=== PATIENT | female | born 1970 | race Hispanic/Latino ===

== ENCOUNTER 2021-11-03 16:40 | Emergency (ER) | payer SELFPAY ==
--- OUTSIDE RECORDS SUMMARY | 2021-11-03 17:26 | XMS REPORT | Continuity of Care Document ---
:1970 Author Organization [facility] t Address [address] [place] [address] Care Team Providers Name Role Phone ENDER Barrios [facility] Primary Care Physic sofiya Unavailable MINO Attending Clinician Unavailable Екатерина CAPELLAN Attending Clinician Unavailable Doctor Unassigned, Name Attending Clinician Unavailable Chaya HAMILTON Attending Clinician CHAYA Attending Clinician Unavailable G_Pappaphilip Attending Clinician Unavailable G_Pappas Admitting Clinician Unavailable Payers Payer Name Policy Type Policy Number Effective Date Expiration Date S violette [employer] [id number] 2014 [employer]ATION [employer] 00:00:00 Problems Condition Condition Condition Status Onset Resolution Last Treating Co mments Source Name Details Category Date Date Treatment Clinician Date No known No known Disease Unive rs active active ity of problems problems [facility] Allergies, Adverse Reactions, Alerts Allergy Allergy Status Severity Reaction(s) Onset Inactive Treating Comm ents Source Name Type Date Date Clinician NO KNOWN Drug Active Univers ALLERGIE Class ity of S [facility] Social History Social Habit Start Date Stop Date Quantity Comments Source Exposure to Not sure [facility] SARS-CoV-2 (event) Medica l Branch Sex Assigned At [birth year] [facility] 00:00:00 00:00:00 [facility] Smoking Status Start Date Stop Date Source Unknown if ever smoked [facility] Medications Ordered Filled Start Stop Current Ordering Indication Dosage Frequency Signature Comments Components Source Medication Medication Date Date Medication? Clinician (SIG) Name Name benzonatate Yes [id number] 100mg Take 1 Univers 100 mg 9-02 capsule by ity of capsule 00:00: mouth 3 [place] 00 (three) Medical times Branch daily as needed for Cough. bromphenira 0 Yes [id number] 5mL Take 5 mL Univers mine-pseudo 9-02 by mouth 4 it y of ephedrine-D [place]:00: (four[place] (BROMFED 00 times Medical DM) 2-30-10 daily as Bran ch mg/5 mL needed for syrup Congestion /Allergies or Cough. albuterol Yes [id number] 2{puff} Inhale 2 Univers 90 9-02 Puffs ity of mcg/actuati 00:00: every 4 [place] as on inhaler 00 (four) Medical hours as Branch needed for Wheezing or Shortness of Breath. ondansetron Yes [id number] 4mg Take 1 Univers (ZOFRAN 9-02 tablet by ity of ODT) 4 mg 00:00: mouth [place] disintegrat 00 every 8 Medic al ing tablet (eight) Branch hours as needed for Nausea and Vomiting (N/V). benzonatate Yes [id number] 100mg Take 1 Univers 100 mg 9-02 capsule by ity of capsule 00:00: mouth 3 [place] 00 (three) Medical times Branch daily as needed for Cough. bromphenira Yes [id number] 5mL Take 5 mL Univers mine-pseudo 9-02 by mouth 4 it y of ephedrine-D 00:00: (four[place] (BROMF[place] 00 times Medical DM) 2-30-10 daily as Bran ch mg/5 mL needed for syrup Congestion /Allergies or Cough. albuterol Yes [id number] 2{puff} Inhale 2 Univers 90 9-02 Puffs ity of mcg/actuati 00:00: every 4 [place] as on inhaler 00 (four) Medical hours as Branch needed for Wheezing or Shortness of Breath. ondansetron Yes [id number] 4mg Take 1 Univers (ZOFRAN 9-02 tablet by ity of ODT) 4 mg 00:00: mouth [place] disintegrat 00 every 8 Medic al ing tablet (eight) Branch hours as needed for Nausea and Vomiting (N/V). Vital Signs Vital Name Observation Time Observation Value Comments Source Systolic blood 2021-04-09 20:36:00 142 mm[Hg] Univer sity of pressure [facility] Diastolic blood 2021-04-09 20:36:00 93 mm[Hg] Unive rsity of pressure [facility] Heart rate 2021-04-09 20:36:00 97 /min [facility] Body temperature 2021-04-09 20:36:00 37.06 [place] [facility] Body height 2021-04-09 20:36:00 152.4 cm [facility] Body weight 2021-04-09 20:36:00 73.483 kg [facility] BMI 2021-04-09 20:36:00 31.64 kg/m2 [facility] Oxygen saturation in 2021-04-09 20:36:00 100 /min [facility] blood by [facility] Pulse oximetry Branch Procedures Procedure Date / Time Performed Performing Clinician Sourc e [id number] CONSENT 2021-04-10 05:01:00 Doctor Unassigned, No Aureliae [facility] ASSIGNMENT OF BENEFITS 2021-04-09 21:34:24 Doctor Hariigned, No [facility] XR CHEST 1 VW 2021-04-09 21:03:23 Junior Montano [facility] COVID-19 (ID NOW RAPID 2021-04-09 20:39:00 Junior Montano [facility] TESTING) [facility] NOTICE OF PRIVACY 2021-04-09 20:27:43 Doctor Unassigned, No [facility] Encounters Start End Encounter Admission Attending Care Care Encounter Source Date/Time Date/Time Type Type Clinicians Facility Department ID 2021-12-17 2021-12-17 Outpatient Laurie HERZOG [facility] [id number] Univers 13:45:00 13:45:00 , DARA [id number] [facility] 2021-04-10 2021-04-10 Outpatient Laurie CAPELLAN [facility] [id number] Univers 10:00:00 10:00:00 PAGE [facility] 2021-04-10 2021-04-10 Orders Doctor RIVERA [id number] Univers 00:00:00 00:00:00 Only Unassigned, VICKY [id number] ity of [place] [facility] [id number] [place] [id number] [facility] 009 Branch 2021-04-09 2021-04-09 Emergency [facility] [id number] Univers 15:40:00 17:13:00 Junior Puentes [id number] i ty of [place] [id number] [facility] [id number] [facility] 084 Branch 2021-04-09 2021-04-09 Emergency X [facility] ERT [id number] Univers 15:27:00 15:27:00 JUNIOR [facility] 2020-06-27 2020-06-27 Outpatient G_Pappas [facility] [id number] [place] 12:50:00 12:50:00 [facility] Results Test Description Test Time Test Comments Results Result Comments Source COVID-19 (ID NOW RAPID TESTING) 2021-04-09 20:54:15 Test Item Value Reference Range Interpretation Comme nts SARS-CoV-2 Rapid ID NOW (test code Positive Not Detected A = [id number]) JULI (test code = JULI) ID NOW COVID-19 Assay is an isothermal nucleic acid amplification test intended for the qualitative detection of nucleic acid from SARS-CoV-2 viral RNA in nasopharyngeal ([employer]) specimens. It is used under Emergency Use Authorization (EUA) by FDA. The limit of detection (LOD) of the assay is 125 Genome Equivalents/mL. A positive result is indicative of the presence of SARS-CoV-2 RNA. ?Clinical correlation with patient history and other diagnostic information is necessary to determine patient infection status. A negative (Not Detected) result does not preclude SARS-CoV-2 infection. In patients with clinical symptoms and other tests that are consistent with SARS-CoV-2 infection, negative results should be treated as presumptive negative and a new specimen should be tested with alternative PCR molecular test. Invalid: Please collect a new specimen for repeat patient testing if clinically indicated. Lab Interpretation (test code = Abnormal [id number]) [facility]
[2021-11-03] MEDS ORDERED: METOCLOPRAMIDE 10 MG/2mL INJ ONE (17:50)
[2021-11-03] MEDS ORDERED: NA CHLORIDE 0.9% 1,000 ML ONE (17:51)
[2021-11-03] MEDS ORDERED: DIPHENHYDRAMINE 50 MG/ML VIAL ONE (17:51)
[2021-11-03] MEDS ORDERED: KETOROLAC 30 MG/ML INJ ONE (17:51)
--- NOTE | 2021-11-03 18:03 | RAD REPORT ---
EXAM DESCRIPTION: CT - CTHCSPWOC - 11/03/2021 5:48 pm CLINICAL HISTORY: Trauma, head and neck injury. Headache COMPARISON: No comparisons TECHNIQUE: Axial 5 mm thick images of the head were obtained. Axial 2 mm thick images of the cervical spine were obtained with sagittal and coronal reconstruction images generated and reviewed. All CT scans are performed using dose optimization technique as appropriate and may include automated exposure control or mA/KV adjustment according to patient size. FINDINGS: CT HEAD WITHOUT CONTRAST: No acute hemorrhage, hydrocephalus or extra-axial collection is identified.Mild brain atrophy.No area s of brain edema or midline shift. The paranasal sinuses and mastoids are clear.The calvarium is intact. CT CERVICAL SPINE WITHOUT CONTRAST: No fracture or subluxation.Mild spondylosis is present C5-6 with posterior osteophytes.No prevertebra l soft tissues swelling is identified. IMPRESSION: No acute intracranial or cervical spine findings.
--- NOTE | 2021-11-03 18:35 | ER ---
Nurse's Notes [facility] Name: Jennifer Victor Age: 50 yrs Sex: Female : 1970 Arrival Date: 11/03/2021 Time: 16:47 Bed 27 Private MD: Diagnosis: Headache Presentation: 11/03 16:50 Chief complaint: Patient states: 3 DAYS PAIN ON R SIDE OF HEAD RADIATING TO R SHOULDER. bp Coronavirus screen: At this time, the client does not indicate any symptoms associated with coronavirus-19. Ebola Screen: No symptoms or risks identified at this time. Initial Sepsis Screen: Does the patient meet any 2 criteria? No. Patient's initial sepsis screen is negative. Does the patient have a suspected source of infection? No. Patient's initial sepsis screen is negative. Risk Assessment: Do you want to hurt yourself or someone else? Patient reports no desire to harm self or others. Onset of symptoms is unknown. 16:50 Method Of Arrival: Ambulatory bp 16:50 Acuity: YAMINI 3 bp Triage Assessment: 16:50 General: Appears in no apparent distress. uncomfortable, obese, Behavior is bp cooperative, appropriate for age, anxious. Pain: Complains of pain in right eye, right jain, right supraclavicular area, right clavicle and anterior aspect of right shoulder. EENT: No deficits noted. Neuro: Level of Consciousness is awake, alert, obeys commands. Cardiovascular: No deficits noted. Respiratory: No deficits noted. GI: Reports nausea. : No signs and/or symptoms were reported regarding the genitourinary system. Derm: No deficits noted. Musculoskeletal: No deficits noted. Historical: - Allergies: 17:27 No Known Drug Allergies; bp - PMHx: 17:27 scoliosis; bp - Immunization history:: Client reports receiving the 2nd dose of the Covid vaccine. - Social history:: Smoking status: Patient denies any tobacco usage or history of. Screenin:50 Abuse screen: Denies threats or abuse. Denies injuries from another. Nutritional bp screening: No deficits noted. Tuberculosis screening: No symptoms or risk factors identified. Fall Risk None identified. Assessment: 16:50 General: SEE TRIAGE NOTE. GI: Reports nausea. bp Vital Signs: 16:50 BP 111 / 74; Pulse 90; Resp 16; Temp 97.8; Pulse Ox 99% ; Weight 74.39 kg; Height 5 ft. bp (152.40 cm); 16:50 Body Mass Index 32.03 (74.39 kg, 152.40 cm) bp ED Course: 16:47 Patient arrived in ED. ds1 16:50 Arm band placed on. bp 16:50 Patient has correct armband on for positive identification. Adult w/ patient. bp 17:27 Triage completed. bp 17:29 Kali Arenas NP is PHCP. pm1 17:29 Martell Rios DO is Attending Physician. pm1 17:39 Patient has correct armband on for positive identification. Bed in low position. Call mh5 light in reach. Side rails up X 1. Pulse ox on. NIBP on. 17:40 Warm blanket given. mh5 17:42 Allegra Dawkins RN is Primary Nurse. ld1 17:50 CT Head C Spine In Process Unspecified. EDMS 17:58 Inserted saline lock: 20 gauge in right antecubital area, using aseptic technique. ld1 18:34 Vish Fitzpatrick MD is Referral Physician. ms3 18:58 No provider procedures requiring assistance completed. IV discontinued, intact, ld1 bleeding controlled, No redness/swelling at site. Administered Medications: 17:57 Drug: Benadryl (diphenhydrAMINE) 25 mg Route: IVP; Site: right antecubital; ld1 17:57 Drug: NS 0.9% 1000 ml Route: IV; Rate: 1000 ml; Site: right antecubital; ld1 17:58 Drug: Reglan (metoCLOPramide) 10 mg Route: IVP; Site: right antecubital; ld1 17:58 Drug: Ketorolac 30 mg Route: IVP; Site: right antecubital; ld1 Outcome: 18:34 Discharge ordered by . ms3 18:58 Discharged to home ambulatory. ld1 18:58 Condition: stable 18:58 Discharge instructions given to patient, Instructed on discharge instructions, follow up and referral plans. Demonstrated understanding of instructions, follow-up care. 18:58 Patient left the ED. ld1 Signatures: Dispatcher [employer] EDIL Siria Monroy ds1 Kali Arenas NP ROADS SUPERINTENDENT pm1 Ade Bruner [facility] Nadeem Nevarez RN RN bp Martell Rios DO DO ms3 Allegra Dawkins, RN RN ld1
--- NOTE | 2021-11-03 18:35 | EDPHYS ---
Physician Documentation [facility] Name: Jennifer Victor Age: 50 yrs Sex: Female : 1970 Arrival Date: 11/03/2021 Time: 16:47 Bed 27 Private MD: ED Physician Martell Rios HPI: 11/03 17:31 This 50 yrs old Female presents to ER via Ambulatory with complaints of pm1 Headache. 17:31 The patient complains of pain to the right eye and right side of head. The patient pm1 describes the headache as aching, constant. Onset: The symptoms/episode began/occurred 3 day(s) ago. Associated signs and symptoms: Pertinent positives: dizziness, nausea, Pertinent negatives: fever, neck stiffness, paresthesias, vision changes, vision loss, vomiting. Severity of symptoms: in the emergency department the pain is unchanged. Headache History: The patient has had previous headaches and this one is similar to previous episodes. The symptoms are alleviated by nothing. the symptoms are aggravated by nothing. The patient has experienced similar episodes in the past, a few times, today's symptoms are similar, to previous migraine headaches. The patient has been recently seen by a physician: the patient's primary care provider, earlier today, with similar presenting complaints, and was sent to the [facility] Emergency Department for further evaluation. Historical: - Allergies: 17:27 No Known Drug Allergies; bp - PMHx: 17:27 scoliosis; bp - Immunization history:: Client reports receiving the 2nd dose of the Covid vaccine. - Social history:: Smoking status: Patient denies any tobacco usage or history of. ROS: 17:31 Constitutional: Negative for fever, chills, and weight loss, Cardiovascular: Negative pm1 for chest pain, palpitations, and edema, Respiratory: Negative for shortness of breath, cough, wheezing, and pleuritic chest pain. 17:31 Back: Negative for injury and pain, MS/Extremity: Negative for injury and deformity, Skin: Negative for injury, rash, and discoloration. 17:31 Neck: Positive for of the right trapezius, Pain. 17:31 Abdomen/GI: Positive for nausea, Negative for abdominal pain, vomiting, diarrhea. 17:31 Neuro: Positive for dizziness, headache, Negative for numbness, tingling, weakness. 17:31 All other systems are negative. Exam: 17:31 Constitutional: This is a well developed, well nourished patient who is awake, alert, pm1 and in no acute distress. 17:31 Skin: Warm, dry with normal turgor. Normal color with no rashes, no lesions, and no evidence of cellulitis. MS/ Extremity: Pulses equal, no cyanosis. Neurovascular intact. Full, normal range of motion. 17:31 Head/face: Noted is no obvious of injury or deformity except tenderness, that is moderate, of the right side of forehead to right occipital area. 17:31 Eyes: Periorbital structures: appear normal, Pupils: no acute changes, Extraocular movements: intact throughout, Sclera: no acute changes, icterus, is not appreciated. 17:31 ENT: Mouth: no acute changes, Lips: normal, moist, Oral mucosa: normal, pink and intact, moist. 17:31 Neck: External neck: tenderness, of the right trapezius. 17:31 Cardiovascular: Exam negative for acute changes, Rate: normal, Rhythm: regular, Pulses: no pulse deficits are appreciated. 17:31 Respiratory: Exam negative for acute changes, respiratory distress, shortness of breath. 17:31 Back: scoliosis that is marked, vertebral tenderness, is not appreciated, muscle spasm, is appreciated in the right trapezius. 17:31 Neuro: Exam negative for acute changes, Orientation: is normal, Mentation: is normal, Motor: is normal, moves all fours. Vital Signs: 16:50 BP 111 / 74; Pulse 90; Resp 16; Temp 97.8; Pulse Ox 99% ; Weight 74.39 kg; Height 5 ft. bp (152.40 cm); 16:50 Body Mass Index 32.03 (74.39 kg, 152.40 cm) bp MDM: 17:47 Patient medically screened. ms3 18:31 Differential diagnosis: Tension headache vs ICH vs Migraine. Data reviewed: vital ms3 signs, nurses notes, radiologic studies, CT scan. ED course: Patient's pain improved, finger-nose intact, ambulatory in the emergency department. Patient follow-up with Dr. Fitzpatrick as discussed. Questions were answered. Return precautions discussed include worsening symptoms, or any other concerns.. 11/03 17:30 Order name: CT Head C Spine; Complete Time: 18:07 pm1 Administered Medications: 17:57 Drug: Benadryl (diphenhydrAMINE) 25 mg Route: IVP; Site: right antecubital; ld1 17:57 Drug: NS 0.9% 1000 ml Route: IV; Rate: 1000 ml; Site: right antecubital; ld1 17:58 Drug: Reglan (metoCLOPramide) 10 mg Route: IVP; Site: right antecubital; ld1 17:58 Drug: Ketorolac 30 mg Route: IVP; Site: right antecubital; ld1 Disposition: 21:55 Co-signature as Attending Physician, Martell Rios DO Patient seen and discharged by me. ms3 Disposition Summary: 11/03/21 18:34 Discharge Ordered Location: Home ms3 Condition: Stable ms3 Diagnosis - Headache ms3 Followup: ms3 - With: Vish Fitzpatrick MD - When: 2 - 3 days - Reason: Discharge Instructions: - Discharge Summary Sheet ms3 - General Headache Without Cause ms3 Forms: - Medication Reconciliation Form ms3 - Thank You Letter ms3 - Antibiotic Education ms3 - Prescription Opioid Use ms3 Signatures: Dispatcher [employer] EDMS Kali Arenas, HARMAN PAINTER PLATE pm1 Nadeem Nevarez, RN RN Martell Edwards DO DO ms3 Allegra Dawkins RN RN ld1
[2021-11-03 19:24] VITALS: BP 111/74; TEMP 97.8; O2SAT 99
== END 2021-11-03 18:58 | disposition home or self-care (01) ==
LOC: ER 16:40
DX: R51.9 Headache, unspecified (principal)
CPT/HCPCS: 70450; 72125; 96374; 96375; 99284; J1200; J2765; J7030

== ENCOUNTER 2023-01-01 14:34 | Emergency (ER) | payer OTHER, SELFPAY ==
--- OUTSIDE RECORDS SUMMARY | 2023-01-01 14:43 | XMS REPORT | Continuity of Care Document ---
:1970 Author Organization [facility] t Address [address] [place] [address] Care Team Providers Name Role Phone Star Kellogg Primary Care Physician [phone] WEN CAPELLAN Attending Clinician Unavailable Felipe Herzog MD Attending Clinician Doctor Unassigned, [place] Attending Clinician Unavailable FELIPE HERZOG Attending Clinician Unavailable KRISTY SALMERON Attending Clinician Unavailable Georgina Molina PT Attending Clinician Unavailable Kristy Salmeron MD Attending Clinician Lab, c Attending Clinician Unavailable Calvin Bueno MD Attending Clinician COLLEEN SABA Attending Clinician Unavailable Celena Ng DO Attending Clinician NATE CRUZ Attending Clinician Unavailable CECELIA MOODY Attending Clinician Unavailable CECELIA MOODY Attending Clinician Unavailable RADIOLOGY Attending Clinician Unavailable Test, Vtc Pulmonary Function Attending Clinician Unavailable Unknown, Attending Attending Clinician Unavailable UNKNOWN, ATTENDING Attending Clinician Unavailable Only, Adc Test Attending Clinician Unavailable Lena Quinones MD Attending Clinician LENA QUINONES Attending Clinician Unavailable Bettie Pang Attending Clinician Unavailable Testing, [facility] Pulmonary Function Attending Clinician Unavaila ble Fellow, Pulmonary Attending Clinician Unavailable Martina MEJIA, Juan M Madrid Attending Clinician [phone] JUAN M MACK Attending Clinician Unavailable PAGE CAPELLAN Attending Clinician Unavailable Junior Thayer Attending Clinician JUNIOR MONTANO Attending Clinician Unavailable [facility] Attending Clinician Unavailable FELIPE HERZOG Admitting Clinician Unavailable [facility] Admitting Clinician Unavailable Payers Payer Name Policy Type Policy Number Effective Date Expiration Date Fátima CARNEY DISABILITY [id number] 2014 DETERMINATION [facility] 00:00:00 Problems Condition Condition Condition Status Onset Resolution Last Treating Co mments Source Name Details Category Date Date Treatment Clinician Date Degenerati Degenerati Disease Active U nivers ve ve 10-14 [place] patient patient Branch No known No known Disease Unive rs active active ity of problems problems [facility] Allergies, Adverse Reactions, Alerts Allergy Allergy Status Severity Reaction(s) Onset Inactive Treating Comm ents Source Name Type Date Date Clinician NO KNOWN Drug Active Univers ALLERGIE Class ity of S [facility] Social History Social Habit Start Date Stop Date Quantity Comments Source History of Cigarette Smoker Universi ty of tobacco use [facility] Exposure to 2022-10-15 2022-10-25 Not sure [facility] SARS-CoV-2 00:00:00 11:09:00 [facility] (event) Arabi Tobacco use and 2022-02-23 2022-02-23 Smokeless tobacco Un iversity of exposure 00:00:00 00:00:00 non-user [facility] Sex Ass[birth year] At [birth year] Universit y of 00:00:00 00:00:00 [facility] Smoking Status Start Date Stop Date Source Ex-smoker 2022-02-23 00:00:00 2022-02-23 00:00:00 [facility] Medications Ordered Filled Start Stop Current Ordering Indication Dosage Frequency Signature Comments Components Source Medication Medication Date Date Medication? Clinician (SIG) Name Name ergocalcife Yes [id number] Take 1 Univers rol, 3-16 capsule by ity of vitamin d2, 00:00: mouth [place] 1,250 mcg 00 weekly. Medical (50,000 Branch unit) capsule ergocalcife 2023-0 Yes [id number] Take 1 Univers rol, 3-16 capsule by ity of vitamin d2, 00:00: mouth [place] 1,250 mcg 00 weekly. Medical (50,000 Branch unit) capsule ergocalcife 2023-0 Yes [id number] Take 1 Univers rol, 3-16 capsule by ity of vitamin d2, 00:00: mouth [place] 1,250 mcg 00 weekly. Medical (50,000 Branch unit) capsule ergocalcife 2023-0 Yes [id number] Take 1 Univers rol, 3-16 capsule by ity of vitamin d2, 00:00: mouth [place] 1,250 mcg 00 weekly. Medical (50,000 Branch unit) capsule ergocalcife 2023-0 Yes [id number] Take 1 Univers rol, 3-16 capsule by ity of vitamin d2, 00:00: mouth [place] 1,250 mcg 00 weekly. Medical (50,000 Branch unit) capsule ergocalcife 2023-0 Yes [id number] Take 1 Univers rol, 3-16 capsule by ity of vitamin d2, 00:00: mouth [place] 1,250 mcg 00 weekly. Medical (50,000 Branch unit) capsule ergocalcife 2023-0 Yes [id number] Take 1 Univers rol, 3-16 capsule by ity of vitamin d2, 00:00: mouth [place] 1,250 mcg 00 weekly. Medical (50,000 Branch unit) capsule ergocalcife 2023-0 Yes [id number] Take 1 Univers rol, 3-16 capsule by ity of vitamin d2, 00:00: mouth [place] 1,250 mcg 00 weekly. Medical (50,000 Branch unit) capsule ergocalcife 2023-0 Yes [id number] Take 1 Univers rol, 3-16 capsule by ity of vitamin d2, 00:00: mouth [place] 1,250 mcg 00 weekly. Medical (50,000 Branch unit) capsule ergocalcife 2023-0 Yes [id number] Take 1 Univers rol, 3-16 capsule by ity of vitamin d2, 00:00: mouth [place] 1,250 mcg 00 weekly. Medical (50,000 Branch unit) capsule ergocalcife 2023-0 Yes [id number] Take 1 Univers rol, 3-16 capsule by ity of vitamin d2, 00:00: mouth [place] 1,250 mcg 00 weekly. Medical (50,000 Branch unit) capsule ergocalcife 2023-0 Yes [id number] Take 1 Univers rol, 3-16 capsule by ity of vitamin d2, 00:00: mouth [place] 1,250 mcg 00 weekly. Medical (50,000 Branch unit) capsule ergocalcife 2023-0 Yes [id number] Take 1 Univers rol, 3-16 capsule by ity of vitamin d2, 00:00: mouth [place] 1,250 mcg 00 weekly. Medical (50,000 Branch unit) capsule ergocalcife 2023-0 Yes [id number] Take 1 Univers rol, 3-16 capsule by ity of vitamin d2, 00:00: mouth [place] 1,250 mcg 00 weekly. Medical (50,000 Branch unit) capsule ergocalcife 2023-0 Yes [id number] Take 1 Univers rol, 3-16 capsule by ity of vitamin d2, 00:00: mouth [place] 1,250 mcg 00 weekly. Medical (50,000 Branch unit) capsule ergocalcife 2023-0 Yes [id number] Take 1 Univers rol, 3-16 capsule by ity of vitamin d2, 00:00: mouth [place] 1,250 mcg 00 weekly. Medical (50,000 Branch unit) capsule lisinopriL 2021-1 Yes 20mg Take 20 mg U nivers 20 mg 1-21 by mouth. ity of tablet 06:17: [address] lisinopriL 2021-08 Yes 20mg Take 20 mg U nivers 20 mg 1-21 by mouth. ity of tablet 06:17: [address] lisinopriL 2021-08 Yes 20mg Take 20 mg U nivers 20 mg 1-21 by mouth. ity of tablet 06:17: [address] lisinopriL 2021-08 Yes 20mg Take 20 mg U nivers 20 mg 1-21 by mouth. ity of tablet 06:17: [address] lisinopriL 2021-08 Yes 20mg Take 20 mg U nivers 20 mg 1-21 by mouth. ity of tablet 06:17: [address] lisinopriL 2021-08 Yes 20mg Take 20 mg U nivers 20 mg 1-21 by mouth. ity of tablet 06:17: [address] lisinopriL 2021-08 Yes 20mg Take 20 mg U nivers 20 mg 1-21 by mouth. ity of tablet 06:17: [address] lisinopriL 2021-08 Yes 20mg Take 20 mg U nivers 20 mg 1-21 by mouth. ity of tablet 06:17: [address] lisinopriL 2021-08 Yes 20mg Take 20 mg U nivers 20 mg 1-21 by mouth. ity of tablet 06:17: [address] lisinopriL 2021-08 Yes 20mg Take 20 mg U nivers 20 mg 1-21 by mouth. ity of tablet 06:17: [address] lisinopriL 2021-08 Yes 20mg Take 20 mg U nivers 20 mg 1-21 by mouth. ity of tablet 06:17: [address] lisinopriL 2021-08 Yes 20mg Take 20 mg U nivers 20 mg 1-21 by mouth. ity of tablet 06:17: [address] lisinopriL 2021-08 Yes 20mg Take 20 mg U nivers 20 mg 1-21 by mouth. ity of tablet 06:17: [address] lisinopriL 2021-08 Yes 20mg Take 20 mg U nivers 20 mg 1-21 by mouth. ity of tablet 06:17: [address] lisinopriL 2021-08 Yes 20mg Take 20 mg U nivers 20 mg 1-21 by mouth. ity of tablet 06:17: [address] lisinopriL 2021-08 Yes 20mg Take 20 mg U nivers 20 mg 1-21 by mouth. ity of tablet 06:17: [address] lisinopriL 2021-08 Yes 20mg Take 20 mg U nivers 20 mg 1-21 by mouth. ity of tablet 06:17: [address] lisinopriL 2021-08 Yes 20mg Take 20 mg U nivers 20 mg 1-21 by mouth. ity of tablet 06:17: [address] lisinopriL 2021-08 Yes 20mg Take 20 mg U nivers 20 mg 1-21 by mouth. ity of tablet 06:17: [address] lisinopriL 2021-08 Yes 20mg Take 20 mg U nivers 20 mg 1-21 by mouth. ity of tablet 06:17: [address] lisinopriL 2021-08 Yes 20mg Take 20 mg U nivers 20 mg 1-21 by mouth. ity of tablet 06:17: [address] lisinopriL 2021-08 Yes 20mg Take 20 mg U nivers 20 mg 1-21 by mouth. ity of tablet 06:17: [address] lisinopriL 2021-08 Yes 20mg Take 20 mg U nivers 20 mg 1-21 by mouth. ity of tablet 06:17: [address] lisinopriL 2021-08 Yes 20mg Take 20 mg U nivers 20 mg 1-21 by mouth. ity of tablet 06:17: [address] lisinopriL 2021-08 Yes 20mg Take 20 mg U nivers 20 mg 1-21 by mouth. ity of tablet 06:17: [address] lisinopriL 2021-08 Yes 20mg Take 20 mg U nivers 20 mg 1-21 by mouth. ity of tablet 06:17: [address] lisinopriL 2021-08 Yes 20mg Take 20 mg U nivers 20 mg 1-21 by mouth. ity of tablet 06:17: [address] lisinopriL 2021-08 Yes 20mg Take 20 mg U nivers 20 mg 1-21 by mouth. ity of tablet 06:17: [address] lisinopriL 2021-08 Yes 20mg Take 20 mg U nivers 20 mg 1-21 by mouth. ity of tablet 06:17: [address] lisinopriL 2021-08 Yes 20mg Take 20 mg U nivers 20 mg 1-21 by mouth. ity of tablet 06:17: [address] lisinopriL 2021-08 Yes 20mg Take 20 mg U nivers 20 mg 1-21 by mouth. ity of tablet 06:17: [address] lisinopriL 2021-08 Yes 20mg Take 20 mg U nivers 20 mg 1-21 by mouth. ity of tablet 06:17: [address] lisinopriL 2021-08 Yes 20mg Take 20 mg U nivers 20 mg 1-21 by mouth. ity of tablet 06:17: [address] lisinopriL 2021-08 Yes 20mg Take 20 mg U nivers 20 mg 1-21 by mouth. ity of tablet 06:17: [address] lisinopriL 2021-08 Yes 20mg Take 20 mg U nivers 20 mg 1-21 by mouth. ity of tablet 06:17: [address] lisinopriL 2021-08 Yes 20mg Take 20 mg U nivers 20 mg 1-21 by mouth. ity of tablet 06:17: [address] lisinopriL 2021-08 Yes 20mg Take 20 mg U nivers 20 mg 1-21 by mouth. ity of tablet 06:17: [address] lisinopriL 2021-08 Yes 20mg Take 20 mg U nivers 20 mg 1-21 by mouth. ity of tablet 06:17: [address] meloxicam 2021-2021- No [id number] 7.5mg Take 1 Univers 7.5 mg 8-04 10-04 tablet by ity of tablet 00:00: 04:59 mouth in [place] 00 :00 [facility] for 60 days. meloxicam 2021-0 2021- No [id number] 7.5mg Take 1 Univers 7.5 mg 8-04 10-04 tablet by ity of tablet 00:00: 04:59 mouth in [place] 00 :00 [facility] for 60 days. meloxicam 2021-0 2- No [id number] 7.5mg Take 1 Univers 7.5 mg 8-04 10-04 tablet by ity of tablet 00:00: 04:59 mouth in [place] 00 :00 [facility] for 60 days. meloxicam 2021-0 2- No [id number] 7.5mg Take 1 Univers 7.5 mg 8-04 10-04 tablet by ity of tablet 00:00: 04:59 mouth in [place] 00 :00 [facility] for 60 days. meloxicam 2-0 2- No [id number] 7.5mg Take 1 Univers 7.5 mg 8-04 10-04 tablet by ity of tablet 00:00: 04:59 mouth in [place] 00 :00 [facility] for 60 days. meloxicam 2-0 2- No [id number] 7.5mg Take 1 Univers 7.5 mg 8-04 10-04 tablet by ity of tablet 00:00: 04:59 mouth in [place] 00 :00 the [facility] for 60 days. meloxicam 2021- No [id number] 7.5mg Take 1 Univers 7.5 mg 8-04 10-04 tablet by ity of tablet 00:00: 04:59 mouth in [place] 00 :00 the [facility] morning Branch for 60 days. meloxicam 2021- No [id number] 7.5mg Take 1 Univers 7.5 mg 8-04 10-04 tablet by ity of tablet 00:00: 04:59 mouth in [place] 00 :00 the [facility] for 60 days. meloxicam 2021- No [id number] 7.5mg Take 1 Univers 7.5 mg 8-04 10-04 tablet by ity of tablet 00:00: 04:59 mouth in [place] 00 :00 the [facility] for 60 days. cyclobenzap No [id number] 10mg Take 1 Univers rine 10 mg 8- 09-04 tablet by ity of tablet 00:00: 04:59 mouth in [place] 00 :00 the [facility] Branch and 1 tablet at noon and 1 tablet in the evening. Do all this for 30 days. acetaminoph No [id number] 1000mg Take 2 Univers en (TYLENOL 8- 09-04 tablets by i ty of EXTRA 00:00: 04:59 mouth [place] STRENGTH) 00 :00 every 8 Medical 500 mg (eight) Branch tablet hours as needed for Pain for up to 30 days. cyclobenzap No [id number] 10mg Take 1 Univers rine 10 mg 8- 09-04 tablet by ity of tablet 00:00: 04:59 mouth in [place] 00 :00 the [facility] morning Branch and 1 tablet at noon and 1 tablet in the evening. Do all this for 30 days. acetaminoph No [id number] 1000mg Take 2 Univers en (TYLENOL 8-04 09-04 tablets by i ty of EXTRA 00:00: 04:59 mouth [place] STRENGTH) 00 :00 every 8 Medical 500 mg (eight) Branch tablet hours as needed for Pain for up to 30 days. cyclobenzap 2022-0 202- No [id number] 10mg Take 1 Univers rine 10 mg 03-11- tablet by ity of tablet 00:00: 04:59 mouth in [place] 00 :00 the Medical morning Branch and 1 tablet at noon and 1 tablet in the evening. Do all this for 30 days. acetaminoph 2022-0 2022- No [id number] 1000mg Take 2 Univers en (TYLENOL 03-11- tablets by i ty of EXTRA 00:00: 04:59 mouth [place] STRENGTH) 00 :00 every 8 Medical 500 mg (eight) Branch tablet hours as needed for Pain for up to 30 days. cyclobenzap 2021-0 2022- No [id number] 10mg Take 1 Univers rine 10 mg 03-11 tablet by ity of tablet 00:00: 04:59 mouth in [place] 00 :00 the Medical morning Branch and 1 tablet at noon and 1 tablet in the evening. Do all this for 30 days. acetaminoph 2021-0 2021- No [id number] 1000mg Take 2 Univers en (TYLENOL 03-11- tablets by i ty of EXTRA 00:00: 04:59 mouth [place] STRENGTH) 00 :00 every 8 Medical 500 mg (eight) Branch tablet hours as needed for Pain for up to 30 days. lisinopriL 2022-0 Yes 20mg Take 20 mg U nivers 20 mg 7-19 by mouth. ity of tablet 08:19: [address] lisinopriL 2022-0 Yes 20mg Take 20 mg U nivers 20 mg 7-19 by mouth. ity of tablet 08:19: [address] lisinopriL 2022-0 Yes 20mg Take 20 mg U nivers 20 mg 7-19 by mouth. ity of tablet 08:19: [address] lisinopriL 2022-0 Yes 20mg Take 20 mg U nivers 20 mg 7-19 by mouth. ity of tablet 08:19: [address] lisinopriL 2022-0 Yes 20mg Take 20 mg U nivers 20 mg 7-19 by mouth. ity of tablet 08:19: [address] lisinopriL 2022-0 Yes 20mg Take 20 mg U nivers 20 mg 7-19 by mouth. ity of tablet 08:19: [address] lisinopriL 2022-0 Yes 20mg Take 20 mg U nivers 20 mg 7-19 by mouth. ity of tablet 08:19: [address] lisinopriL 2022-0 Yes 20mg Take 20 mg U nivers 20 mg 7-19 by mouth. ity of tablet 08:19: [address] lisinopriL 2022-0 Yes 20mg Take 20 mg U nivers 20 mg 7-19 by mouth. ity of tablet 08:19: [address] lisinopriL 2022-0 Yes 20mg Take 20 mg U nivers 20 mg 7-19 by mouth. ity of tablet 08:19: [address] lisinopriL 2022-0 Yes 20mg Take 20 mg U nivers 20 mg 7-19 by mouth. ity of tablet 08:19: [address] lisinopriL 2022-0 Yes 20mg Take 20 mg U nivers 20 mg 7-19 by mouth. ity of tablet 08:19: [address] lisinopriL 2022-0 Yes 20mg Take 20 mg U nivers 20 mg 7-19 by mouth. ity of tablet 08:19: [address] lisinopriL 2-0 Yes 20mg Take 20 mg U nivers 20 mg 7-19 by mouth. ity of tablet 08:19: [address] lisinopriL 2022-0 Yes 20mg Take 20 mg U nivers 20 mg 7-19 by mouth. ity of tablet 08:19: [address] lisinopriL 2022-0 Yes 20mg Take 20 mg U nivers 20 mg 7-19 by mouth. ity of tablet 08:19: [address] lisinopriL 2022-0 Yes 20mg Take 20 mg U nivers 20 mg 7-19 by mouth. ity of tablet 08:19: [address] lisinopriL 2022-0 Yes 20mg Take 20 mg U nivers 20 mg 7-19 by mouth. ity of tablet 08:19: [address] lisinopriL 2022-0 Yes 20mg Take 20 mg U nivers 20 mg 7-19 by mouth. ity of tablet 08:19: [address] Dose 2021-0 No Unknown 5-09 00:00: 00 Dose 2022-0 No Unknown 5-09 00:00: 00 Dose 2022-0 No Unknown 4-01 00:00: 00 Dose 2022-0 No Unknown 4-01 00:00: 00 Dose 2022-0 No Unknown 3-08 00:00: 00 Dose 2022-0 No Unknown 3-08 00:00: 00 Dose 2022-0 No Unknown 3-08 00:00: 00 Dose 2022-0 No Unknown 3-08 00:00: 00 Dose 2022-0 No Unknown 3-08 00:00: 00 Dose 2022-0 No Unknown 3-08 00:00: 00 Dose 2022-0 No Unknown 3-08 00:00: 00 Dose 2022-0 No Unknown 3-08 00:00: 00 Dose 2022-0 No Unknown 3-08 00:00: 00 Dose 2022-0 No Unknown 3-08 00:00: 00 Dose 2022-0 No Unknown 3-08 00:00: 00 Dose 2022-0 No Unknown 3-08 00:00: 00 Dose 2022-0 No Unknown 3-08 00:00: 00 Dose 2022-0 No Unknown 3-08 00:00: 00 Dose 2022-0 No Unknown 3-08 00:00: 00 Dose 2022-0 No Unknown 3-08 00:00: 00 Dose 2022-0 No Unknown 3-08 00:00: 00 Dose 2022-0 No Unknown 3-08 00:00: 00 Dose 2022-0 No Unknown 3-08 00:00: 00 Dose 2022-0 No Unknown 3-08 00:00: 00 Dose 2022-0 No Unknown 3-08 00:00: 00 Dose 2022-0 No Unknown 3-08 00:00: 00 Dose 2022-0 No Unknown 3-08 00:00: 00 Dose 2022-0 No Unknown 3-08 00:00: 00 Dose 2022-0 No Unknown 3-08 00:00: 00 Dose 2022-0 No Unknown 3-08 00:00: 00 Dose 2022-0 No Unknown 3-08 00:00: 00 Dose 2022-0 No Unknown 3-08 00:00: 00 Dose 2022-0 No Unknown 3-08 00:00: 00 Dose 2022-0 No Unknown 3-08 00:00: 00 Dose 2022-0 No Unknown 3-08 00:00: 00 Dose 2022-0 No Unknown 3-08 00:00: 00 Dose 2022-0 No Unknown 3-08 00:00: 00 Dose 2022-0 No Unknown 3-08 00:00: 00 Dose 2022-0 No Unknown 3-08 00:00: 00 Dose 2022-0 No Unknown 3-08 00:00: 00 Dose 2022-0 No Unknown 3-08 00:00: 00 Dose 2022-0 No Unknown 3-08 00:00: 00 Dose 2022-0 No Unknown 3-08 00:00: 00 Dose 2022-0 No Unknown 3-08 00:00: 00 Dose 2022-0 No Unknown 3-08 00:00: 00 Dose 2022-0 No Unknown 3-08 00:00: 00 Dose 2022-0 No Unknown 3-08 00:00: 00 Dose 2022-0 No Unknown 3-08 00:00: 00 Dose 2022-0 No Unknown 3-08 00:00: 00 Dose 2022-0 No Unknown 3-08 00:00: 00 Dose 2022-0 No Unknown 3-08 00:00: 00 Dose 2022-0 No Unknown 3-08 00:00: 00 Dose 2022-0 No Unknown 3-08 00:00: 00 Dose 2022-0 No Unknown 3-08 00:00: 00 Dose 2022-0 No Unknown 3-08 00:00: 00 Dose 2022-0 No Unknown 3-08 00:00: 00 Dose 2022-0 No Unknown 3-08 00:00: 00 Dose 2022-0 No Unknown 3-08 00:00: 00 Dose 2022-0 No Unknown 3-08 00:00: 00 Dose 2022-0 No Unknown 3-08 00:00: 00 Dose 2022-0 No Unknown 3-08 00:00: 00 Dose 2022-0 No Unknown 3-08 00:00: 00 Dose 2022-0 No Unknown 3-08 00:00: 00 Dose 2022-0 No Unknown 3-08 00:00: 00 Dose 2022-0 No Unknown 3-08 00:00: 00 Dose 2022-0 No Unknown 3-08 00:00: 00 Dose 2022-0 No Unknown 3-08 00:00: 00 Dose 2022-0 No Unknown 3-08 00:00: 00 Dose 2022-0 No Unknown 3-08 00:00: 00 Dose 2022-0 No Unknown 3-08 00:00: 00 Dose 2022-0 No Unknown 3-08 00:00: 00 Dose 2022-0 No Unknown 3-08 00:00: 00 Dose 2022-0 No Unknown 3-08 00:00: 00 Dose 2022-0 No Unknown 3-08 00:00: 00 Dose 2022-0 No Unknown 3-08 00:00: 00 Dose 2022-0 No Unknown 3-08 00:00: 00 Dose 2022-0 No Unknown 3-08 00:00: 00 Dose 2022-0 No Unknown 3-08 00:00: 00 Dose 2022-0 No Unknown 3-08 00:00: 00 Dose 2022-0 No Unknown 3-08 00:00: 00 Dose 2022-0 No Unknown 3-08 00:00: 00 Dose 2022-0 No Unknown 3-08 00:00: 00 Dose 2022-0 No Unknown 3-08 00:00: 00 Dose 2022-0 No Unknown 3-08 00:00: 00 Dose 2022-0 No Unknown 3-08 00:00: 00 Dose 2022-0 No Unknown 3-08 00:00: 00 Dose 2022-0 No Unknown 3-08 00:00: 00 Dose 2022-0 No Unknown 3-08 00:00: 00 Dose 2022-0 No Unknown 3-08 00:00: 00 Dose 2022-0 No Unknown 3-08 00:00: 00 Dose 2022-0 No Unknown 3-08 00:00: 00 Dose 2022-0 No Unknown 3-08 00:00: 00 Dose 2022-0 No Unknown 3-08 00:00: 00 Dose 2022-0 No Unknown 3-08 00:00: 00 Dose 2022-0 No Unknown 3-08 00:00: 00 Dose 2022-0 No Unknown 3-08 00:00: 00 Dose 2022-0 No Unknown 3-08 00:00: 00 Dose 2022-0 No Unknown 3-08 00:00: 00 Dose 2022-0 No Unknown 3-08 00:00: 00 Dose 2022-0 No Unknown 3-08 00:00: 00 Dose 2022-0 No Unknown 3-08 00:00: 00 Dose 2022-0 No Unknown 3-08 00:00: 00 Dose 2022-0 No Unknown 3-08 00:00: 00 Dose 2022-0 No Unknown 3-08 00:00: 00 Dose 2022-0 No Unknown 3-08 00:00: 00 Dose 2022-0 No Unknown 3-08 00:00: 00 Dose 2022-0 No Unknown 3-08 00:00: 00 Dose 2022-0 No Unknown 3-08 00:00: 00 Dose 2022-0 No Unknown 3-08 00:00: 00 Dose 2022-0 No Unknown 3-08 00:00: 00 Dose 2022-0 No Unknown 3-08 00:00: 00 Dose 2022-0 No Unknown 3-08 00:00: 00 Dose 2022-0 No Unknown 3-08 00:00: 00 Dose 2022-0 No Unknown 3-08 00:00: 00 Dose 2022-0 No Unknown 3-08 00:00: 00 Dose 2022-0 No Unknown 3-08 00:00: 00 Dose 2022-0 No Unknown 3-08 00:00: 00 Dose 2022-0 No Unknown 3-08 00:00: 00 Dose 2022-0 No Unknown 3-08 00:00: 00 Dose 2022-0 No Unknown 3-08 00:00: 00 Dose 2022-0 No Unknown 3-08 00:00: 00 Dose 2022-0 No Unknown 3-08 00:00: 00 Dose 2022-0 No Unknown 3-08 00:00: 00 Dose 2022-0 No Unknown 3-08 00:00: 00 Dose 2022-0 No Unknown 3-08 00:00: 00 Dose 2022-0 No Unknown 3-08 00:00: 00 Dose 2022-0 No Unknown 3-08 00:00: 00 Dose 2022-0 No Unknown 3-08 00:00: 00 Dose 2022-0 No Unknown 3-08 00:00: 00 Dose 2022-0 No Unknown 3-08 00:00: 00 Dose 2022-0 No Unknown 3-08 00:00: 00 Dose 2022-0 No Unknown 3-08 00:00: 00 Dose 2022-0 No Unknown 3-08 00:00: 00 Dose 2022-0 No Unknown 3-08 00:00: 00 Dose 2022-0 No Unknown 3-08 00:00: 00 Dose 2022-0 No Unknown 3-08 00:00: 00 Dose 2022-0 No Unknown 3-08 00:00: 00 Dose 2022-0 No Unknown 3-08 00:00: 00 Dose 2022-0 No Unknown 3-08 00:00: 00 Dose 2022-0 No Unknown 3-08 00:00: 00 Dose 2022-0 No Unknown 3-08 00:00: 00 Dose 2022-0 No Unknown 3-08 00:00: 00 Dose 2022-0 No Unknown 3-08 00:00: 00 Dose 2022-0 No Unknown 3-08 00:00: 00 Dose 2022-0 No Unknown 3-08 00:00: 00 Dose 2022-0 No Unknown 3-08 00:00: 00 Dose 2022-0 No Unknown 3-08 00:00: 00 Dose 2022-0 No Unknown 3-08 00:00: 00 Dose 2022-0 No Unknown 3-08 00:00: 00 Dose 2022-0 No Unknown 3-08 00:00: 00 Dose 2022-0 No Unknown 3-08 00:00: 00 Dose 2022-0 No Unknown 3-08 00:00: 00 Dose 2022-0 No Unknown 3-08 00:00: 00 Dose 2022-0 No Unknown 3-08 00:00: 00 Dose 2022-0 No Unknown 3-08 00:00: 00 Dose 2022-0 No Unknown 3-08 00:00: 00 Dose 2022-0 No Unknown 3-08 00:00: 00 Dose 2022-0 No Unknown 3-08 00:00: 00 Dose 2022-0 No Unknown 3-08 00:00: 00 Dose 2022-0 No Unknown 3-08 00:00: 00 Dose 2022-0 No Unknown 3-08 00:00: 00 Dose 2022-0 No Unknown 3-08 00:00: 00 Dose 2022-0 No Unknown 3-08 00:00: 00 Dose 2022-0 No Unknown 3-08 00:00: 00 Dose 2022-0 No Unknown 3-08 00:00: 00 Dose 2022-0 No Unknown 3-08 00:00: 00 Dose 2022-0 No Unknown 3-08 00:00: 00 Dose 2022-0 No Unknown 3-08 00:00: 00 Dose 2022-0 No Unknown 3-08 00:00: 00 Dose 2022-0 No Unknown 3-08 00:00: 00 Dose 2022-0 No Unknown 3-08 00:00: 00 Dose 2022-0 No Unknown 3-08 00:00: 00 Dose 2022-0 No Unknown 3-08 00:00: 00 Dose 2022-0 No Unknown 3-08 00:00: 00 Dose 2022-0 No Unknown 3-08 00:00: 00 Dose 2022-0 No Unknown 3-08 00:00: 00 Dose 2022-0 No Unknown 3-08 00:00: 00 Dose 2022-0 No Unknown 3-08 00:00: 00 Dose 2022-0 No Unknown 3-08 00:00: 00 Dose 2022-0 No Unknown 3-08 00:00: 00 Dose 2022-0 No Unknown 3-08 00:00: 00 Dose 2022-0 No Unknown 3-08 00:00: 00 Dose 2022-0 No Unknown 3-08 00:00: 00 Dose 2022-0 No Unknown 3-08 00:00: 00 Dose 2022-0 No Unknown 3-08 00:00: 00 Dose 2022-0 No Unknown 3-08 00:00: 00 Dose 2022-0 No Unknown 3-08 00:00: 00 Dose 2022-0 No Unknown 3-08 00:00: 00 Dose 2022-0 No Unknown 3-08 00:00: 00 Dose 2022-0 No Unknown 3-08 00:00: 00 Dose 2022-0 No Unknown 3-08 00:00: 00 Dose 2022-0 No Unknown 3-08 00:00: 00 Dose 2022-0 No Unknown 3-08 00:00: 00 Dose 2022-0 No Unknown 3-08 00:00: 00 Dose 2022-0 No Unknown 3-08 00:00: 00 Dose 2022-0 No Unknown 3-08 00:00: 00 Dose 2022-0 No Unknown 3-08 00:00: 00 Dose 2022-0 No Unknown 3-08 00:00: 00 Dose 2022-0 No Unknown 3-08 00:00: 00 Dose 2022-0 No Unknown 3-08 00:00: 00 Dose 2022-0 No Unknown 3-08 00:00: 00 Dose 2022-0 No Unknown 3-08 00:00: 00 Dose 2022-0 No Unknown 3-08 00:00: 00 Dose 2022-0 No Unknown 3-08 00:00: 00 Dose 2022-0 No Unknown 3-08 00:00: 00 Dose 2022-0 No Unknown 3-08 00:00: 00 Dose 2022-0 No Unknown 3-08 00:00: 00 Dose 2022-0 No Unknown 3-08 00:00: 00 Dose 2022-0 No Unknown 3-08 00:00: 00 Dose 2022-0 No Unknown 3-08 00:00: 00 Dose 2022-0 No Unknown 3-08 00:00: 00 Dose 2022-0 No Unknown 3-08 00:00: 00 Dose 2022-0 No Unknown 3-08 00:00: 00 Dose 2022-0 No Unknown 3-08 00:00: 00 Dose 2022-0 No Unknown 3-08 00:00: 00 Dose 2022-0 No Unknown 3-08 00:00: 00 Dose 2022-0 No Unknown 3-08 00:00: 00 Dose 2022-0 No Unknown 3-08 00:00: 00 Dose 2022-0 No Unknown 3-08 00:00: 00 Dose 2022-0 No Unknown 3-08 00:00: 00 Dose 2022-0 No Unknown 3-08 00:00: 00 Dose 2022-0 No Unknown 3-08 00:00: 00 Dose 2022-0 No Unknown 3-08 00:00: 00 Dose 2022-0 No Unknown 3-08 00:00: 00 Dose 2022-0 No Unknown 3-08 00:00: 00 Dose 2022-0 No Unknown 3-08 00:00: 00 Dose 2022-0 No Unknown 3-08 00:00: 00 Dose 2022-0 No Unknown 3-08 00:00: 00 Dose 2022-0 No Unknown 3-08 00:00: 00 Dose 2022-0 No Unknown 3-08 00:00: 00 Dose 2022-0 No Unknown 3-08 00:00: 00 Dose 2022-0 No Unknown 3-08 00:00: 00 Dose 2022-0 No Unknown 3-08 00:00: 00 Dose 2022-0 No Unknown 3-08 00:00: 00 Dose 2022-0 No Unknown 3-08 00:00: 00 Dose 2022-0 No Unknown 3-08 00:00: 00 Dose 2022-0 No Unknown 3-08 00:00: 00 Dose 2022-0 No Unknown 3-08 00:00: 00 Dose 2022-0 No Unknown 3-08 00:00: 00 Dose 2022-0 No Unknown 3-08 00:00: 00 Dose 2022-0 No Unknown 3-08 00:00: 00 Dose 2022-0 No Unknown 3-08 00:00: 00 Dose 2022-0 No Unknown 3-08 00:00: 00 Dose 2022-0 No Unknown 3-08 00:00: 00 Dose 2022-0 No Unknown 3-08 00:00: 00 Dose 2022-0 No Unknown 3-08 00:00: 00 Dose 2022-0 No Unknown 3-08 00:00: 00 Dose 2022-0 No Unknown 3-08 00:00: 00 Dose 2022-0 No Unknown 3-08 00:00: 00 Dose 2022-0 No Unknown 3-08 00:00: 00 Dose 2022-0 No Unknown 3-08 00:00: 00 Dose 2022-0 No Unknown 3-08 00:00: 00 Dose 2022-0 No Unknown 3-08 00:00: 00 Dose 2022-0 No Unknown 3-08 00:00: 00 Dose 2022-0 No Unknown 3-08 00:00: 00 Dose 2022-0 No Unknown 3-08 00:00: 00 Dose 2022-0 No Unknown 3-08 00:00: 00 Dose 2022-0 No Unknown 3-08 00:00: 00 Dose 2022-0 No Unknown 3-08 00:00: 00 Dose 2022-0 No Unknown 3-08 00:00: 00 Dose 2022-0 No Unknown 3-08 00:00: 00 Dose 2022-0 No Unknown 3-08 00:00: 00 Dose 2022-0 No Unknown 3-08 00:00: 00 Dose 2022-0 No Unknown 3-08 00:00: 00 Dose 2022-0 No Unknown 3-08 00:00: 00 Dose 2022-0 No Unknown 3-08 00:00: 00 Dose 2022-0 No Unknown 3-08 00:00: 00 Dose 2022-0 No Unknown 3-08 00:00: 00 Dose 2022-0 No Unknown 3-08 00:00: 00 Dose 2022-0 No Unknown 3-08 00:00: 00 Dose 2022-0 No Unknown 3-08 00:00: 00 Dose 2022-0 No Unknown 3-08 00:00: 00 Dose 2022-0 No Unknown 3-08 00:00: 00 Dose 2022-0 No Unknown 3-08 00:00: 00 Dose 2022-0 No Unknown 3-08 00:00: 00 Dose 2022-0 No Unknown 3-08 00:00: 00 Dose 2022-0 No Unknown 3-08 00:00: 00 Dose 2022-0 No Unknown 3-08 00:00: 00 Dose 2022-0 No Unknown 3-08 00:00: 00 Dose 2022-0 No Unknown 3-08 00:00: 00 Dose 2022-0 No Unknown 3-08 00:00: 00 Dose 2022-0 No Unknown 3-08 00:00: 00 Dose 2022-0 No Unknown 3-08 00:00: 00 Dose 2022-0 No Unknown 3-08 00:00: 00 Dose 2022-0 No Unknown 3-08 00:00: 00 Dose 2022-0 No Unknown 3-08 00:00: 00 Dose 2022-0 No Unknown 3-08 00:00: 00 Dose 2022-0 No Unknown 3-08 00:00: 00 Dose 2022-0 No Unknown 3-08 00:00: 00 Dose 2022-0 No Unknown 3-08 00:00: 00 Dose 2022-0 No Unknown 3-08 00:00: 00 Dose 2022-0 No Unknown 3-08 00:00: 00 Dose 2022-0 No Unknown 3-08 00:00: 00 Dose 2022-0 No Unknown 3-08 00:00: 00 Dose 2022-0 No Unknown 3-08 00:00: 00 Dose 2022-0 No Unknown 3-08 00:00: 00 Dose 2022-0 No Unknown 3-08 00:00: 00 Dose 2022-0 No Unknown 3-08 00:00: 00 Dose 2022-0 No Unknown 3-08 00:00: 00 Dose 2022-0 No Unknown 3-08 00:00: 00 Dose 2022-0 No Unknown 3-08 00:00: 00 Dose 2022-0 No Unknown 3-08 00:00: 00 Dose 2022-0 No Unknown 3-08 00:00: 00 Dose 2022-0 No Unknown 3-08 00:00: 00 Dose 2022-0 No Unknown 3-08 00:00: 00 Dose 2022-0 No Unknown 3-08 00:00: 00 Dose 2022-0 No Unknown 3-08 00:00: 00 Dose 2022-0 No Unknown 3-08 00:00: 00 Dose 2022-0 No Unknown 3-08 00:00: 00 Dose 2022-0 No Unknown 3-08 00:00: 00 Dose 2022-0 No Unknown 3-08 00:00: 00 Dose 2022-0 No Unknown 3-08 00:00: 00 Dose 2022-0 No Unknown 3-08 00:00: 00 Dose 2022-0 No Unknown 3-08 00:00: 00 Dose 2022-0 No Unknown 3-08 00:00: 00 Dose 2022-0 No Unknown 3-08 00:00: 00 Dose 2022-0 No Unknown 3-08 00:00: 00 Dose 2022-0 No Unknown 3-08 00:00: 00 Dose 2022-0 No Unknown 3-08 00:00: 00 Dose 2022-0 No Unknown 3-08 00:00: 00 Dose 2022-0 No Unknown 3-08 00:00: 00 Dose 2022-0 No Unknown 3-08 00:00: 00 Dose 2022-0 No Unknown 3-08 00:00: 00 Dose 2022-0 No Unknown 3-08 00:00: 00 Dose 2022-0 No Unknown 3-08 00:00: 00 Dose 2022-0 No Unknown 3-08 00:00: 00 Dose 2022-0 No Unknown 3-08 00:00: 00 Dose 2022-0 No Unknown 3-08 00:00: 00 Dose 2022-0 No Unknown 3-08 00:00: 00 Dose 2022-0 No Unknown 3-08 00:00: 00 Dose 2022-0 No Unknown 3-08 00:00: 00 Dose 2022-0 No Unknown 3-08 00:00: 00 Dose 2022-0 No Unknown 3-08 00:00: 00 Dose 2022-0 No Unknown 3-08 00:00: 00 Dose 2022-0 No Unknown 3-08 00:00: 00 Dose 2022-0 No Unknown 3-08 00:00: 00 Dose 2022-0 No Unknown 3-08 00:00: 00 Dose 2022-0 No Unknown 3-08 00:00: 00 Dose 2022-0 No Unknown 3-08 00:00: 00 Dose 2022-0 No Unknown 3-08 00:00: 00 Dose 2022-0 No Unknown 3-08 00:00: 00 Dose 2022-0 No Unknown 3-08 00:00: 00 Dose 2022-0 No Unknown 3-08 00:00: 00 Dose 2022-0 No Unknown 3-08 00:00: 00 Dose 2022-0 No Unknown 3-08 00:00: 00 Dose 2022-0 No Unknown 3-08 00:00: 00 Dose 2022-0 No Unknown 3-08 00:00: 00 Dose 2022-0 No Unknown 3-08 00:00: 00 Dose 2022-0 No Unknown 3-08 00:00: 00 Dose 2022-0 No Unknown 3-08 00:00: 00 Dose 2022-0 No Unknown 3-08 00:00: 00 Dose 2022-0 No Unknown 3-08 00:00: 00 Dose 2022-0 No Unknown 3-08 00:00: 00 Dose 2022-0 No Unknown 3-08 00:00: 00 Dose 2022-0 No Unknown 3-08 00:00: 00 Dose 2022-0 No Unknown 3-08 00:00: 00 Dose 2022-0 No Unknown 3-08 00:00: 00 Dose 2022-0 No Unknown 3-08 00:00: 00 Dose 2022-0 No Unknown 3-08 00:00: 00 Dose 2022-0 No Unknown 3-08 00:00: 00 Dose 2022-0 No Unknown 3-08 00:00: 00 Dose 2022-0 No Unknown 3-08 00:00: 00 Dose 2022-0 No Unknown 3-08 00:00: 00 Dose 2022-0 No Unknown 3-08 00:00: 00 Dose 2022-0 No Unknown 3-08 00:00: 00 Dose 2022-0 No Unknown 3-08 00:00: 00 Dose 2022-0 No Unknown 3-08 00:00: 00 Dose 2022-0 No Unknown 3-08 00:00: 00 Dose 2022-0 No Unknown 3-08 00:00: 00 Dose 2022-0 No Unknown 3-08 00:00: 00 Dose 2022-0 No Unknown 3-08 00:00: 00 Dose 2022-0 No Unknown 3-08 00:00: 00 Dose 2022-0 No Unknown 3-08 00:00: 00 Dose 2022-0 No Unknown 3-08 00:00: 00 Dose 2022-0 No Unknown 3-08 00:00: 00 Dose 2022-0 No Unknown 3-08 00:00: 00 Dose 2022-0 No Unknown 3-08 00:00: 00 Dose 2022-0 No Unknown 3-08 00:00: 00 Dose 2022-0 No Unknown 3-08 00:00: 00 Dose 2022-0 No Unknown 3-08 00:00: 00 Dose 2022-0 No Unknown 3-08 00:00: 00 Dose 2022-0 No Unknown 3-08 00:00: 00 Dose 2022-0 No Unknown 3-08 00:00: 00 Dose 2022-0 No Unknown 3-08 00:00: 00 Dose 2022-0 No Unknown 3-08 00:00: 00 Dose 2022-0 No Unknown 3-08 00:00: 00 Dose 2022-0 No Unknown 3-08 00:00: 00 Dose 2022-0 No Unknown 3-08 00:00: 00 Dose 2022-0 No Unknown 3-08 00:00: 00 Dose 2022-0 No Unknown 3-08 00:00: 00 Dose 2022-0 No Unknown 3-08 00:00: 00 Dose 2022-0 No Unknown 3-08 00:00: 00 Dose 2022-0 No Unknown 3-08 00:00: 00 Dose 2022-0 No Unknown 3-08 00:00: 00 Dose 2022-0 No Unknown 3-08 00:00: 00 Dose 2022-0 No Unknown 3-08 00:00: 00 Dose 2022-0 No Unknown 3-08 00:00: 00 Dose 2022-0 No Unknown 3-08 00:00: 00 Dose 2022-0 No Unknown 3-08 00:00: 00 Dose 2022-0 No Unknown 3-08 00:00: 00 Dose 2022-0 No Unknown 3-08 00:00: 00 Dose 2022-0 No Unknown 3-08 00:00: 00 Dose 2022-0 No Unknown 3-08 00:00: 00 Dose 2022-0 No Unknown 3-08 00:00: 00 Dose 2022-0 No Unknown 3-08 00:00: 00 Dose 2022-0 No Unknown 3-08 00:00: 00 Dose 2022-0 No Unknown 3-08 00:00: 00 Dose 2022-0 No Unknown 3-08 00:00: 00 Dose 2022-0 No Unknown 3-08 00:00: 00 Dose 2022-0 No Unknown 3-08 00:00: 00 Dose 2022-0 No Unknown 3-08 00:00: 00 Dose 2022-0 No Unknown 3-08 00:00: 00 Dose 2022-0 No Unknown 3-08 00:00: 00 Dose 2022-0 No Unknown 3-08 00:00: 00 Dose 2022-0 No Unknown 3-08 00:00: 00 Dose 2022-0 No Unknown 3-08 00:00: 00 Dose 2022-0 No Unknown 3-08 00:00: 00 Dose 2022-0 No Unknown 3-08 00:00: 00 Dose 2022-0 No Unknown 3-08 00:00: 00 Dose 2022-0 No Unknown 3-08 00:00: 00 Dose 2022-0 No Unknown 3-08 00:00: 00 Dose 2022-0 No Unknown 3-08 00:00: 00 Dose 2022-0 No Unknown 3-08 00:00: 00 Dose 2022-0 No Unknown 3-08 00:00: 00 Dose 2022-0 No Unknown 3-08 00:00: 00 Dose 2022-0 No Unknown 3-08 00:00: 00 Dose 2022-0 No Unknown 3-08 00:00: 00 Dose 2022-0 No Unknown 3-08 00:00: 00 Dose 2022-0 No Unknown 3-08 00:00: 00 Dose 2022-0 No Unknown 3-08 00:00: 00 Dose 2022-0 No Unknown 3-08 00:00: 00 Dose 2022-0 No Unknown 3-08 00:00: 00 Dose 2022-0 No Unknown 3-08 00:00: 00 Dose 2022-0 No Unknown 3-08 00:00: 00 Dose 2022-0 No Unknown 3-08 00:00: 00 Dose 2022-0 No Unknown 3-08 00:00: 00 Dose 2022-0 No Unknown 3-08 00:00: 00 Dose 2022-0 No Unknown 3-08 00:00: 00 Dose 2022-0 No Unknown 3-08 00:00: 00 Dose 2022-0 No Unknown 3-08 00:00: 00 Dose 2022-0 No Unknown 3-08 00:00: 00 Dose 2022-0 No Unknown 3-08 00:00: 00 Dose 2022-0 No Unknown 3-08 00:00: 00 Dose 2022-0 No Unknown 3-08 00:00: 00 Dose 2022-0 No Unknown 3-08 00:00: 00 Dose 2022-0 No Unknown 3-08 00:00: 00 Dose 2022-0 No Unknown 3-08 00:00: 00 Dose 2022-0 No Unknown 3-08 00:00: 00 Dose 2022-0 No Unknown 3-08 00:00: 00 Dose 2022-0 No Unknown 3-08 00:00: 00 Dose 2022-0 No Unknown 3-08 00:00: 00 Dose 2022-0 No Unknown 3-08 00:00: 00 Dose 2022-0 No Unknown 3-08 00:00: 00 Dose 2022-0 No Unknown 3-08 00:00: 00 Dose 2022-0 No Unknown 3-08 00:00: 00 Dose 2022-0 No Unknown 3-08 00:00: 00 Dose 2022-0 No Unknown 3-08 00:00: 00 Dose 2022-0 No Unknown 3-08 00:00: 00 Dose 2022-0 No Unknown 3-08 00:00: 00 Dose 2022-0 No Unknown 3-08 00:00: 00 Dose 2022-0 No Unknown 3-08 00:00: 00 Dose 2022-0 No Unknown 3-08 00:00: 00 Dose 2022-0 No Unknown 3-08 00:00: 00 Dose 2022-0 No Unknown 3-08 00:00: 00 Dose 2022-0 No Unknown 3-08 00:00: 00 Dose 2022-0 No Unknown 3-08 00:00: 00 Dose 2022-0 No Unknown 3-08 00:00: 00 Dose 2022-0 No Unknown 3-08 00:00: 00 Dose 2022-0 No Unknown 3-08 00:00: 00 Dose 2022-0 No Unknown 3-08 00:00: 00 Dose 2022-0 No Unknown 3-08 00:00: 00 Dose 2022-0 No Unknown 3-08 00:00: 00 Dose 2022-0 No Unknown 3-08 00:00: 00 Dose 2022-0 No Unknown 3-08 00:00: 00 Dose 2022-0 No Unknown 3-08 00:00: 00 Dose 2022-0 No Unknown 3-08 00:00: 00 Dose 2022-0 No Unknown 3-08 00:00: 00 Dose 2022-0 No Unknown 3-08 00:00: 00 Dose 2022-0 No Unknown 3-08 00:00: 00 Dose 2022-0 No Unknown 3-08 00:00: 00 Dose 2022-0 No Unknown 3-08 00:00: 00 Dose 2022-0 No Unknown 3-08 00:00: 00 Dose 2022-0 No Unknown 3-08 00:00: 00 Dose 2022-0 No Unknown 3-08 00:00: 00 Dose 2022-0 No Unknown 3-08 00:00: 00 Dose 2022-0 No Unknown 3-08 00:00: 00 Dose 2022-0 No Unknown 3-08 00:00: 00 Dose 2022-0 No Unknown 3-08 00:00: 00 Dose 2022-0 No Unknown 3-08 00:00: 00 Dose 2022-0 No Unknown 3-08 00:00: 00 Dose 2022-0 No Unknown 3-08 00:00: 00 Dose 2022-0 No Unknown 3-08 00:00: 00 Dose 2022-0 No Unknown 3-08 00:00: 00 Dose 2022-0 No Unknown 3-08 00:00: 00 Dose 2022-0 No Unknown 3-08 00:00: 00 Dose 2022-0 No Unknown 3-08 00:00: 00 Dose 2022-0 No Unknown 3-08 00:00: 00 Dose 2022-0 No Unknown 3-08 00:00: 00 Dose 2022-0 No Unknown 3-08 00:00: 00 Dose 2022-0 No Unknown 3-08 00:00: 00 Dose 2022-0 No Unknown 3-08 00:00: 00 Dose 2022-0 No Unknown 3-08 00:00: 00 Dose 2022-0 No Unknown 3-08 00:00: 00 Dose 2022-0 No Unknown 3-08 00:00: 00 Dose 2022-0 No Unknown 3-08 00:00: 00 Dose 2022-0 No Unknown 3-08 00:00: 00 Dose 2022-0 No Unknown 3-08 00:00: 00 Dose 2022-0 No Unknown 3-08 00:00: 00 Dose 2022-0 No Unknown 3-08 00:00: 00 Dose 2022-0 No Unknown 3-08 00:00: 00 Dose 2022-0 No Unknown 3-08 00:00: 00 Dose 2022-0 No Unknown 3-08 00:00: 00 Dose 2022-0 No Unknown 3-08 00:00: 00 Dose 2022-0 No Unknown 3-08 00:00: 00 Dose 2022-0 No Unknown 2-28 00:00: 00 Dose 2022-0 No Unknown 2-28 00:00: 00 SERTraline 2020-08 Yes 300mg Take 300 Un [facility] 100 mg 2-13 mg by ity of tablet 00:00: mouth. [address] SERTraline 2020-08 Yes 300mg Take 300 Un [facility] 100 mg 2-13 mg by ity of tablet 00:00: mouth. [address] SERTraline 2020-08 Yes 300mg Take 300 Un [facility] 100 mg 2-13 mg by ity of tablet 00:00: mouth. [address] SERTraline 2020-08 Yes 300mg Take 300 [facility] 100 mg 2-13 mg by ity of tablet 00:00: mouth. [address] SERTraline 2020-08 Yes 300mg Take 300 [facility] 100 mg 2-13 mg by ity of tablet 00:00: mouth. [address] SERTraline 2020-08 Yes 300mg Take 300 [facility] 100 mg 2-13 mg by ity of tablet 00:00: mouth. [address] SERTraline 2020-08 Yes 300mg Take 300 Un [facility] 100 mg 2-13 mg by ity of tablet 00:00: mouth. [address] SERTraline 2020-08 Yes 300mg Take 300 Un [facility] 100 mg 2-13 mg by ity of tablet 00:00: mouth. [facility] SERTraline 2020-08 Yes 300mg Take 300 Un [facility] 100 mg 2-13 mg by ity of tablet 00:00: mouth. [place] [facility] SERTraline 2020-08 Yes 300mg Take 300 Un [facility] 100 mg 2-13 mg by ity of tablet 00:00: mouth. [facility] SERTraline 2020-08 Yes 300mg Take 300 [facility] 100 mg 2-13 mg by ity of tablet 00:00: mouth. [facility] SERTraline 2020-08 Yes 300mg Take 300 [facility] 100 mg 2-13 mg by ity of tablet 00:00: mouth. [facility] SERTraline 2020-08 Yes 300mg Take 300 [facility] 100 mg 2-13 mg by ity of tablet 00:00: mouth. [facility] SERTraline 2020-08 Yes 300mg Take 300 [facility] 100 mg 2-13 mg by ity of tablet 00:00: mouth. [facility] SERTraline 2020-08 Yes 300mg Take 300 [facility] 100 mg 2-13 mg by ity of tablet 00:00: mouth. [facility] SERTraline 2020-08 Yes 300mg Take 300 [facility] 100 mg 2-13 mg by ity of tablet 00:00: mouth. [facility] SERTraline 2020-08 Yes 300mg Take 300 [facility] 100 mg 2-13 mg by ity of tablet 00:00: mouth. [facility] SERTraline 2020-08 Yes 300mg Take 300 [facility] [place] 100 mg 2-13 mg by ity of tablet 00:00: mouth. [facility] SERTraline 2020-08 Yes 300mg Take 300 [facility] [place] 100 mg 2-13 mg by ity of tablet 00:00: mouth. [facility] SERTraline 2020-08 Yes 300mg Take 300 [facility] [place] 100 mg 2-13 mg by ity of tablet 00:00: mouth. [facility] SERTraline 2020-08 Yes 300mg Take 300 [facility] 100 mg 2-13 mg by ity of tablet 00:00: mouth. [facility] SERTraline 2020-08 Yes 300mg Take 300 [facility] 100 mg 2-13 mg by ity of tablet 00:00: mouth. [place] [facility] SERTraline 2020-08 Yes 300mg Take 300 [facility] [place] 100 mg 2-13 mg by ity of tablet 00:00: mouth. [place] [facility] SERTraline 2020-08 Yes 300mg Take 300 [facility] [place] 100 mg 2-13 mg by ity of tablet 00:00: mouth. [facility] SERTraline 2020-08 Yes 300mg Take 300 [facility] [place] 100 mg 2-13 mg by ity of tablet 00:00: mouth. [facility] SERTraline 2020-08 Yes 300mg Take 300 [facility] [place] 100 mg 2-13 mg by ity of tablet 00:00: mouth. [facility] SERTraline 2020-08 Yes 300mg Take 300 [facility] [place] 100 mg 2-13 mg by ity of tablet 00:00: mouth. [facility] SERTraline 2020-08 Yes 300mg Take 300 Un [place] 100 mg 2-13 mg by ity of tablet 00:00: mouth. [facility] SERTraline 2020-08 Yes 300mg Take 300 [facility] 100 mg 2-13 mg by ity of tablet 00:00: mouth. [facility] SERTraline 2020-08 Yes 300mg Take 300 [facility] 100 mg 2-13 mg by ity of tablet 00:00: mouth. [facility] SERTraline 2020-08 Yes 300mg Take 300 [facility] [place] 100 mg 2-13 mg by ity of tablet 00:00: mouth. [facility] SERTraline 2020-08 Yes 300mg Take 300 [facility] [place] 100 mg 2-13 mg by ity of tablet 00:00: mouth. [facility] SERTraline 2020-08 Yes 300mg Take 300 [facility] [place] 100 mg 2-13 mg by ity of tablet 00:00: mouth. [facility] SERTraline 2020-08 Yes 300mg Take 300 [facility] [place] 100 mg 2-13 mg by ity of tablet 00:00: mouth. [address] SERTraline 2020-08 Yes 300mg Take 300 Un [facility] 100 mg 2-13 mg by ity of tablet 00:00: mouth. [facility] SERTraline 2020-08 Yes 300mg Take 300 [facility] [place] 100 mg 2-13 mg by ity of tablet 00:00: mouth. [facility] SERTraline 2020-08 Yes 300mg Take 300 [facility] [place] 100 mg 2-13 mg by ity of tablet 00:00: mouth. [facility] SERTraline 2020-08 Yes 300mg Take 300 [facility] [place] 100 mg 2-13 mg by ity of tablet 00:00: mouth. [place] [facility] SERTraline 2020-08 Yes 300mg Take 300 [facility] [place] 100 mg 2-13 mg by ity of tablet 00:00: mouth. [place] [facility] SERTraline 2020-08 Yes 300mg Take 300 [facility] [place] 100 mg 2-13 mg by ity of tablet 00:00: mouth. [place] [facility] SERTraline 2020-08 Yes 300mg Take 300 Un [place] 100 mg 2-13 mg by ity of tablet 00:00: mouth. [facility] SERTraline 2020-08 Yes 300mg Take 300 [facility] [place] 100 mg 2-13 mg by ity of tablet 00:00: mouth. [facility] SERTraline 2020-08 Yes 300mg Take 300 [facility] 100 mg 2-13 mg by ity of tablet 00:00: mouth. [place] [facility] SERTraline 2020-08 Yes 300mg Take 300 Un [facility] 100 mg 2-13 mg by ity of tablet 00:00: mouth. [place] [facility] SERTraline 2020-08 Yes 300mg Take 300 [facility] 100 mg 2-13 mg by ity of tablet 00:00: mouth. [facility] SERTraline 2020-08 Yes 300mg Take 300 [facility] [place] 100 mg 2-13 mg by ity of tablet 00:00: mouth. [facility] SERTraline 2020-08 Yes 300mg Take 300 [facility] [place] 100 mg 2-13 mg by ity of tablet 00:00: mouth. [facility] SERTraline 2020-08 Yes 300mg Take 300 [facility] [place] 100 mg 2-13 mg by ity of tablet 00:00: mouth. [facility] SERTraline 2020-08 Yes 300mg Take 300 [facility] 100 mg 2-13 mg by ity of tablet 00:00: mouth. [place] [facility] SERTraline 2020-08 Yes 300mg Take 300 Un [facility] 100 mg 2-13 mg by ity of tablet 00:00: mouth. [facility] SERTraline 2020-08 Yes 300mg Take 300 Un [place] 100 mg 2-13 mg by ity of tablet 00:00: mouth. [facility] SERTraline 2020-08 Yes 300mg Take 300 Un [place] 100 mg 2-13 mg by ity of tablet 00:00: mouth. [place] [facility] SERTraline 2020-08 Yes 300mg Take 300 Un [place] 100 mg 2-13 mg by ity of tablet 00:00: mouth. [place] [facility] SERTraline 2020-08 Yes 300mg Take 300 Un [place] 100 mg 2-13 mg by ity of tablet 00:00: mouth. [place] [facility] SERTraline 2020-08 Yes 300mg Take 300 Un [facility] 100 mg 2-13 mg by ity of tablet 00:00: mouth. [facility] SERTraline 2020-08 Yes 300mg Take 300 Un [place] 100 mg 2-13 mg by ity of tablet 00:00: mouth. [facility] SERTraline 2020-08 Yes 300mg Take 300 Un [place] 100 mg 2-13 mg by ity of tablet 00:00: mouth. [address] Dose 2020-08 No Unknown 2-02 00:00: 00 Dose 2020-08 No Unknown 2-02 00:00: 00 Dose 2020-08 No Unknown 2-02 00:00: 00 Dose 2020-08 No Unknown 2-02 00:00: 00 Zoloft 100 2020-08 No 2mg mg tablet 1-10 00:00: 00 Zoloft 100 2020-08 No 2mg mg tablet 1-10 00:00: 00 Dose 2020-08 No Unknown 1-08 00:00: 00 Dose 2020-08 No Unknown 1-08 00:00: 00 Dose 2020-08 No Unknown 1-08 00:00: 00 Dose 2020-08 No Unknown 1-08 00:00: 00 Dose 2020-08 No Unknown 0-19 00:00: 00 Dose 2020-08 No Unknown 0-19 00:00: 00 Dose 2020-08 No Unknown 0-10 00:00: 00 Dose 2020-08 No Unknown 0-10 00:00: 00 Dose 2020-08 No Unknown 0-10 00:00: 00 Dose 2020-08 No Unknown 0-10 00:00: 00 benzonatate 2020-0 Yes [id number] 100mg Take 1 [facility] 100 mg 9-02 capsule by ity of capsule 00:00: mouth 3 [place] 00 (three) Medical times Branch daily as needed for Cough. bromphenira 0 Yes [id number] 5mL Take 5 mL [facility] mine-pseudo 9-02 by mouth 4 it y of ephedrine-D 00:00: (four[place] (BROMFED 00 times Medical DM) 2-30-10 daily as Bran ch mg/5 mL needed for syrup Congestion /Allergies or Cough. albuterol Yes [id number] 2{puff} Inhale 2 [facility] 90 9-02 Puffs ity of mcg/actuati 00:00: every 4 [place] as on inhaler 00 (four) Medical hours as Branch needed for Wheezing or Shortness of Breath. ondansetron Yes [id number] 4mg Take 1 [facility] (ZOFRAN 9-02 tablet by ity of ODT) 4 mg 00:00: mouth [place] disintegrat 00 every 8 Medic al ing tablet (eight) Branch hours as needed for Nausea and Vomiting (N/V). benzonatate Yes [id number] 100mg Take 1 [facility] 100 mg 9-02 capsule by ity of capsule 00:00: mouth 3 [place] 00 (three) Medical times Branch daily as needed for Cough. bromphenira 0 Yes [id number] 5mL Take 5 mL [facility] mine-pseudo 9-02 by mouth 4 it y of ephedrine-D 00:00: (four[place] (BROMFED 00 times Medical DM) 2-30-10 daily as Bran ch mg/5 mL needed for syrup Congestion /Allergies or Cough. albuterol 0 Yes [id number] 2{puff} Inhale 2 [facility] 90 9-02 Puffs ity of mcg/actuati 00:00: every 4 [place] as on inhaler 00 (four) Medical hours as Branch needed for Wheezing or Shortness of Breath. ondansetron 0 Yes [id number] 4mg Take 1 [facility] (ZOFRAN 9-02 tablet by ity of ODT) 4 mg 00:00: mouth [place] disintegrat 00 every 8 Medic al ing tablet (eight) Branch hours as needed for Nausea and Vomiting (N/V). benzonatate 2020-0 Yes [id number] 100mg Take 1 [facility] 100 mg 9-02 capsule by ity of capsule 00:00: mouth 3 [place] 00 (three) Medical times Branch daily as needed for Cough. bromphenira 2020-0 Yes [id number] 5mL Take 5 mL [facility] mine-pseudo 9-02 by mouth 4 it y of ephedrine-D 00:00: (four) [place] (BROMFED 00 times Medical DM) 2-30-10 daily as Bran ch mg/5 mL needed for syrup Congestion /Allergies or Cough. albuterol 2020-0 Yes [id number] 2{puff} Inhale 2 [facility] 90 9-02 Puffs ity of mcg/actuati 00:00: every 4 [place] as on inhaler 00 (four) Medical hours as Branch needed for Wheezing or Shortness of Breath. ondansetron 2020-0 Yes [id number] 4mg Take 1 [facility] (ZOFRAN 9-02 tablet by ity of ODT) 4 mg 00:00: mouth [place] disintegrat 00 every 8 Medic al ing tablet (eight) Branch hours as needed for Nausea and Vomiting (N/V). benzonatate 2020-0 Yes [id number] 100mg Take 1 [facility] 100 mg 9-02 capsule by ity of capsule 00:00: mouth 3 [place] 00 (three) Medical times Branch daily as needed for Cough. bromphenira 2020-0 Yes [id number] 5mL Take 5 mL [facility] mine-pseudo 9-02 by mouth 4 it y of ephedrine-D 00:00: (four) [place] (BROMFED 00 times Medical DM) 2-30-10 daily as Bran ch mg/5 mL needed for syrup Congestion /Allergies or Cough. albuterol 2020-0 Yes [id number] 2{puff} Inhale 2 [facility] 90 9-02 Puffs ity of mcg/actuati 00:00: every 4 [place] [facility] on inhaler 00 (four) Medical hours as Branch needed for Wheezing or Shortness of Breath. ondansetron 2020-0 Yes [id number] 4mg Take 1 [facility] (ZOFRAN 9-02 tablet by ity of ODT) 4 mg 00:00: mouth [place] disintegrat 00 every 8 Medic al ing tablet (eight) Branch hours as needed for Nausea and Vomiting (N/V). benzonatate 2020-0 Yes [id number] 100mg Take 1 [facility] 100 mg 9-02 capsule by ity of capsule 00:00: mouth 3 [place] 00 (three) Medical times Branch daily as needed for Cough. bromphenira 2020-0 Yes [id number] 5mL Take 5 mL [facility] mine-pseudo 9-02 by mouth 4 it y of ephedrine-D 00:00: (four) [place] (BROMFED 00 times Medical DM) 2-30-10 daily as Bran ch mg/5 mL needed for syrup Congestion /Allergies or Cough. albuterol 0 Yes [id number] 2{puff} Inhale 2 [facility] 90 9-02 Puffs ity of mcg/actuati 00:00: every 4 [place] [facility] on inhaler 00 (four) Medical hours as Branch needed for Wheezing or Shortness of Breath. ondansetron 0 Yes [id number] 4mg Take 1 [facility] (ZOFRAN 9-02 tablet by ity of ODT) 4 mg 00:00: mouth [place] disintegrat 00 every 8 Medic al ing tablet (eight) Branch hours as needed for Nausea and Vomiting (N/V). benzonatate 0 Yes [id number] 100mg Take 1 [facility] 100 mg 9-02 capsule by ity of capsule 00:00: mouth 3 [place] 00 (three) Medical times Branch daily as needed for Cough. bromphenira 2020-0 Yes [id number] 5mL Take 5 mL [facility] mine-pseudo 9-02 by mouth 4 it y of ephedrine-D 00:00: (four) [place] (BROMFED 00 times Medical DM) 2-30-10 daily as Bran ch mg/5 mL needed for syrup Congestion /Allergies or Cough. albuterol 2020-0 Yes [id number] 2{puff} Inhale 2 [facility] 90 9-02 Puffs ity of mcg/actuati 00:00: every 4 [place] as on inhaler 00 (four) Medical hours as Branch needed for Wheezing or Shortness of Breath. ondansetron 2020-0 Yes [id number] 4mg Take 1 [facility] (ZOFRAN 9-02 tablet by ity of ODT) 4 mg 00:00: mouth [place] disintegrat 00 every 8 Medic al ing tablet (eight) Branch hours as needed for Nausea and Vomiting (N/V). benzonatate 2020-0 Yes [id number] 100mg Take 1 [facility] 100 mg 9-02 capsule by ity of capsule 00:00: mouth 3 [place] 00 (three) Medical times Branch daily as needed for Cough. bromphenira 2020-0 Yes [id number] 5mL Take 5 mL [facility] mine-pseudo 9-02 by mouth 4 it y of ephedrine-D 00:00: (four) [place] [facility] (BROMFED 00 times Medical DM) 2-30-10 daily as Bran ch mg/5 mL needed for syrup Congestion /Allergies or Cough. albuterol 0 Yes [id number] 2{puff} Inhale 2 [facility] 90 9-02 Puffs ity of mcg/actuati 00:00: every 4 [place] [facility] on inhaler 00 (four) Medical hours as Branch needed for Wheezing or Shortness of Breath. ondansetron 0 Yes [id number] 4mg Take 1 [facility] (ZOFRAN 9-02 tablet by ity of ODT) 4 mg 00:00: mouth [place] disintegrat 00 every 8 Medic al ing tablet (eight) Branch hours as needed for Nausea and Vomiting (N/V). benzonatate 0 Yes [id number] 100mg Take 1 [facility] 100 mg 9-02 capsule by ity of capsule 00:00: mouth 3 [place] 00 (three) Medical times Branch daily as needed for Cough. bromphenira 2020-0 Yes [id number] 5mL Take 5 mL [facility] mine-pseudo 9-02 by mouth 4 it y of ephedrine-D 00:00: (four) [place] [facility] ([facility]OMF[facility] 00 times Medical DM) 2-30-10 daily as Bran ch mg/5 mL needed for syrup Congestion /Allergies or Cough. albuterol 2020-0 Yes [id number] 2{puff} Inhale 2 [facility] 90 9-02 Puffs ity of mcg/actuati 00:00: every 4 [place] [facility] on inhaler 00 (four) Medical hours as Branch needed for Wheezing or Shortness of Breath. ondansetron 2020-0 Yes [id number] 4mg Take 1 [facility] (ZOFRAN 9-02 tablet by ity of ODT) 4 mg 00:00: mouth [place] disintegrat 00 every 8 Medic al ing tablet (eight) Branch hours as needed for Nausea and Vomiting (N/V). benzonatate 2020-0 Yes [id number] 100mg Take 1 [facility] 100 mg 9-02 capsule by ity of capsule 00:00: mouth 3 [place] 00 (three) Medical times Branch daily as needed for Cough. bromphenira 2020-0 Yes [id number] 5mL Take 5 mL [facility] mine-pseudo 9-02 by mouth 4 [facility] y of ephedrine-D 00:00: (four) [place] [facility] (BROMFED 00 times Medical DM) 2-30-10 daily as Bran ch mg/5 mL needed for syrup Congestion /Allergies or Cough. albuterol 0 Yes [id number] 2{puff} Inhale 2 [facility] 90 9-02 Puffs ity of mcg/actuati 00:00: every 4 [place] [facility] on inhaler 00 (four) Medical hours as Branch needed for Wheezing or Shortness of Breath. ondansetron 2020-0 Yes [id number] 4mg Take 1 [facility] (ZOFRAN 9-02 tablet by ity of ODT) 4 mg 00:00: mouth [place] disintegrat 00 every 8 Medic al ing tablet (eight) Branch hours as needed for Nausea and Vomiting (N/V). benzonatate 2020-0 Yes [id number] 100mg Take 1 [facility] 100 mg 9-02 capsule by ity of capsule 00:00: mouth 3 (three) Medical times Branch daily as needed for Cough. bromphenira 2020-0 Yes [id number] 5mL Take 5 mL [facility] mine-pseudo 9-02 by mouth 4 it y of ephedrine-D 00:00: (four) [place] [facility] (BROMF[facility] 00 times Medical DM) 2-30-10 daily as Bran ch mg/5 mL needed for syrup Congestion /Allergies or Cough. albuterol 2020-0 Yes [id number] 2{puff} Inhale 2 [facility] 90 9-02 Puffs ity of mcg/actuati 00:00: every 4 [place] [facility] inhaler 00 (four) Medical hours as Branch needed for Wheezing or Shortness of Breath. ondansetron 2020-0 Yes [id number] 4mg Take 1 [facility] (ZOFRAN 9-02 tablet by ity of ODT) 4 mg 00:00: mouth [place] disintegrat 00 every 8 Medic al ing tablet (eight) Branch hours as needed for Nausea and Vomiting (N/V). benzonatate 2020-0 Yes [id number] 100mg Take 1 [facility] 100 mg 9-02 capsule by ity of capsule 00:00: mouth 3 [place] (three) Medical times Branch daily as needed for Cough. bromphenira 2020-0 Yes [id number] 5mL Take 5 mL [facility] mine-pseudo 9-02 by mouth 4 it y of ephedrine-D 00:00: (four) [place] [facility] ([facility]OMF[facility] 00 times Medical DM) 2-30-10 daily as Bran ch mg/5 mL needed for syrup Congestion /Allergies or Cough. albuterol 2020-0 Yes [id number] 2{puff} Inhale 2 [facility] 90 9-02 Puffs ity of mcg/actuati 00:00: every 4 [place] [facility] on inhaler 00 (four) Medical hours as Branch needed for Wheezing or Shortness of Breath. ondansetron 2020-0 Yes [id number] 4mg Take 1 [facility] (ZOFRAN 9-02 tablet by ity of ODT) 4 mg 00:00: mouth [place] disintegrat 00 every 8 Medic al ing tablet (eight) Branch hours as needed for Nausea and Vomiting (N/V). benzonatate 2020-0 Yes [id number] 100mg Take 1 [facility] 100 mg 9-02 capsule by ity of capsule 00:00: mouth 3 [place] (three) Medical times Branch daily as needed for Cough. bromphenira 2020-0 Yes [id number] 5mL Take 5 mL [facility] mine-pseudo 9-02 by mouth 4 it y of ephedrine-D 00:00: (four) [place] [facility] (BROMFED 00 times Medical DM) 2-30-10 daily as Bran ch mg/5 mL needed for syrup Congestion /Allergies or Cough. albuterol 2020-0 Yes [id number] 2{puff} Inhale 2 [facility] 90 9-02 Puffs ity of mcg/actuati 00:00: every 4 [place] [facility] on inhaler 00 (four) Medical hours as Branch needed for Wheezing or Shortness of Breath. ondansetron 2020-0 Yes [id number] 4mg Take 1 [facility] (ZOFRAN 9-02 tablet by ity of ODT) 4 mg 00:00: mouth [place] disintegrat 00 every 8 Medic al ing tablet (eight) Branch hours as needed for Nausea and Vomiting (N/V). benzonatate 2020-0 Yes [id number] 100mg Take 1 [facility] 100 mg 9-02 capsule by ity of capsule 00:00: mouth 3 [place] 00 (three) Medical times Branch daily as needed for Cough. bromphenira 2020-0 Yes [id number] 5mL Take 5 mL [facility] mine-pseudo 9-02 by mouth 4 it y of ephedrine-D 00:00: (four) [place] [facility] (BROMFED 00 times Medical DM) 2-30-10 daily as Bran ch mg/5 mL needed for syrup Congestion /Allergies or Cough. albuterol 2020-0 Yes [id number] 2{puff} Inhale 2 [facility] 90 9-02 Puffs ity of mcg/actuati 00:00: every 4 [place] on inhaler 00 (four) Medical hours as Branch needed for Wheezing or Shortness of Breath. ondansetron 2020-0 Yes [id number] 4mg Take 1 [facility] (ZOFRAN 9-02 tablet by ity of ODT) 4 mg 00:00: mouth [place] disintegrat 00 every 8 Medic al ing tablet (eight) Branch hours as needed for Nausea and Vomiting (N/V). benzonatate 2020-0 Yes [id number] 100mg Take 1 [facility] 100 mg 9-02 capsule by ity of capsule 00:00: mouth 3 [place] 00 (three) Medical times Branch daily as needed for Cough. bromphenira 2020-0 Yes [id number] 5mL Take 5 mL [facility] mine-pseudo 9-02 by mouth 4 it y of ephedrine-D 00:00: (four) [place] [facility] (BROMFED 00 times Medical DM) 2-30-10 daily as Bran ch mg/5 mL needed for syrup Congestion /Allergies or Cough. albuterol 2020-0 Yes [id number] 2{puff} Inhale 2 [facility] 90 9-02 Puffs ity of mcg/actuati 00:00: every 4 [place] [facility] on inhaler 00 (four) Medical hours as Branch needed for Wheezing or Shortness of Breath. ondansetron 2020-0 Yes [id number] 4mg Take 1 [facility] (ZOFRAN 9-02 tablet by ity of ODT) 4 mg 00:00: mouth [place] disintegrat 00 every 8 Medic al ing tablet (eight) Branch hours as needed for Nausea and Vomiting (N/V). benzonatate 2020-0 Yes [id number] 100mg Take 1 [facility] 100 mg 9-02 capsule by ity of capsule 00:00: mouth 3 [place] 00 (three) Medical times Branch daily as needed for Cough. bromphenira 2020-0 Yes [id number] 5mL Take 5 mL [facility] mine-pseudo 9-02 by mouth 4 it y of ephedrine-D 00:00: (four) [place] [facility] (BROMF[facility] 00 times Medical DM) 2-30-10 daily as Bran ch mg/5 mL needed for syrup Congestion /Allergies or Cough. albuterol 2020-0 Yes [id number] 2{puff} Inhale 2 [facility] 90 9-02 Puffs ity of mcg/actuati 00:00: every 4 [place] [facility] on inhaler 00 (four) Medical hours as Branch needed for Wheezing or Shortness of Breath. ondansetron 2020-0 Yes [id number] 4mg Take 1 [facility] (ZOFRAN 9-02 tablet by ity of ODT) 4 mg 00:00: mouth [place] disintegrat 00 every 8 Medic al ing tablet (eight) Branch hours as needed for Nausea and Vomiting (N/V). benzonatate 2020-0 Yes [id number] 100mg Take 1 [facility] 100 mg 9-02 capsule by ity of capsule 00:00: mouth 3 [place] 00 (three) Medical times Branch daily as needed for Cough. bromphenira 2020-0 Yes [id number] 5mL Take 5 mL [facility] mine-pseudo 9-02 by mouth 4 it y of ephedrine-D 00:00: (four) [place] [facility] (BROMFED 00 times Medical DM) 2-30-10 daily as Bran ch mg/5 mL needed for syrup Congestion /Allergies or Cough. albuterol 2020-0 Yes [id number] 2{puff} Inhale 2 [facility] 90 9-02 Puffs ity of mcg/actuati 00:00: every 4 [place] [facility] on inhaler 00 (four) Medical hours as Branch needed for Wheezing or Shortness of Breath. ondansetron 2020-0 Yes [id number] 4mg Take 1 [facility] (ZOFRAN 9-02 tablet by ity of ODT) 4 mg 00:00: mouth [place] disintegrat 00 every 8 Medic al ing tablet (eight) Branch hours as needed for Nausea and Vomiting (N/V). benzonatate 2020-0 Yes [id number] 100mg Take 1 [facility] 100 mg 9-02 capsule by ity of capsule 00:00: mouth 3 [place] 00 (three) Medical times Branch daily as needed for Cough. bromphenira 2020-0 Yes [id number] 5mL Take 5 mL [facility] mine-pseudo 9-02 by mouth 4 it y of ephedrine-D 00:00: (four) [place] [facility] (BROMFED 00 times Medical DM) 2-30-10 daily as Bran ch mg/5 mL needed for syrup Congestion /Allergies or Cough. albuterol 2020-0 Yes [id number] 2{puff} Inhale 2 [facility] 90 9-02 Puffs ity of mcg/actuati 00:00: every 4 [place] [facility] on inhaler 00 (four) Medical hours as Branch needed for Wheezing or Shortness of Breath. ondansetron 2020-0 Yes [id number] 4mg Take 1 [facility] (ZOFRAN 9-02 tablet by ity of ODT) 4 mg 00:00: mouth [place] disintegrat 00 every 8 Medic al ing tablet (eight) Branch hours as needed for Nausea and Vomiting (N/V). benzonatate 2020-0 Yes [id number] 100mg Take 1 [facility] 100 mg 9-02 capsule by ity of capsule 00:00: mouth 3 [place] 00 (three) Medical times Branch daily as needed for Cough. bromphenira 2020-0 Yes [id number] 5mL Take 5 mL [facility] mine-pseudo 9-02 by mouth 4 it y of ephedrine-D 00:00: (four) [place] [facility] (BROMFED 00 times Medical DM) 2-30-10 daily as Bran ch mg/5 mL needed for syrup Congestion /Allergies or Cough. albuterol 2020-0 Yes [id number] 2{puff} Inhale 2 [facility] 90 9-02 Puffs ity of mcg/actuati 00:00: every 4 [place] [facility] on inhaler 00 (four) Medical hours as Branch needed for Wheezing or Shortness of Breath. ondansetron 2020-0 Yes [id number] 4mg Take 1 [facility] (ZOFRAN 9-02 tablet by ity of ODT) 4 mg 00:00: mouth [place] disintegrat 00 every 8 Medic al ing tablet (eight) Branch hours as needed for Nausea and Vomiting (N/V). benzonatate 2020-0 Yes [id number] 100mg Take 1 [facility] 100 mg 9-02 capsule by ity of capsule 00:00: mouth 3 [place] 00 (three) Medical times Branch daily as needed for Cough. bromphenira 2020-0 Yes [id number] 5mL Take 5 mL [facility] mine-pseudo 9-02 by mouth 4 it y of ephedrine-D 00:00: (four) [place] [facility] (BROMFED 00 times Medical DM) 2-30-10 daily as Bran ch mg/5 mL needed for syrup Congestion /Allergies or Cough. albuterol 2020-0 Yes [id number] 2{puff} Inhale 2 [facility] 90 9-02 Puffs ity of mcg/actuati 00:00: every 4 [place] [facility] on inhaler 00 (four) Medical hours as Branch needed for Wheezing or Shortness of Breath. ondansetron 2020-0 Yes [id number] 4mg Take 1 [facility] (ZOFRAN 9-02 tablet by ity of ODT) 4 mg 00:00: mouth [place] disintegrat 00 every 8 Medic al ing tablet (eight) Branch hours as needed for Nausea and Vomiting (N/V). benzonatate 2020-0 Yes [id number] 100mg Take 1 [facility] 100 mg 9-02 capsule by ity of capsule 00:00: mouth 3 [place] 00 (three) Medical times Branch daily as needed for Cough. bromphenira 2020-0 Yes [id number] 5mL Take 5 mL [facility] mine-pseudo 9-02 by mouth 4 it y of ephedrine-D 00:00: (four) [place] [facility] (BROMFED 00 times Medical DM) 2-30-10 daily as Bran ch mg/5 mL needed for syrup Congestion /Allergies or Cough. albuterol 2020-0 Yes [id number] 2{puff} Inhale 2 [facility] 90 9-02 Puffs ity of mcg/actuati 00:00: every 4 [place] [facility] on inhaler 00 (four) Medical hours as Branch needed for Wheezing or Shortness of Breath. ondansetron 2020-0 Yes [id number] 4mg Take 1 [facility] (ZOFRAN 9-02 tablet by ity of ODT) 4 mg 00:00: mouth [place] disintegrat 00 every 8 Medic al ing tablet (eight) Branch hours as needed for Nausea and Vomiting (N/V). benzonatate 2020-0 Yes [id number] 100mg Take 1 [facility] 100 mg 9-02 capsule by ity of capsule 00:00: mouth 3 [place] 00 (three) Medical times Branch daily as needed for Cough. bromphenira 2020-0 Yes [id number] 5mL Take 5 mL [facility] mine-pseudo 9-02 by mouth 4 it y of ephedrine-D 00:00: (four) [place] [facility] (BROMFED 00 times Medical DM) 2-30-10 daily as Bran ch mg/5 mL needed for syrup Congestion /Allergies or Cough. albuterol 0 Yes [id number] 2{puff} Inhale 2 [facility] 90 9-02 Puffs ity of mcg/actuati 00:00: every 4 [place] [facility] on inhaler 00 (four) Medical hours as Branch needed for Wheezing or Shortness of Breath. ondansetron 0 Yes [id number] 4mg Take 1 [facility] (ZOFRAN 9-02 tablet by ity of ODT) 4 mg 00:00: mouth [place] disintegrat 00 every 8 Medic al ing tablet (eight) Branch hours as needed for Nausea and Vomiting (N/V). benzonatate 2020-0 Yes [id number] 100mg Take 1 [facility] 100 mg 9-02 capsule by ity of capsule 00:00: mouth 3 [place] 00 (three) Medical times Branch daily as needed for Cough. bromphenira 2020-0 Yes [id number] 5mL Take 5 mL [facility] mine-pseudo 9-02 by mouth 4 it y of ephedrine-D 00:00: (four) [place] [facility] (BROMFED 00 times Medical DM) 2-30-10 daily as Bran ch mg/5 mL needed for syrup Congestion /Allergies or Cough. albuterol 2020-0 Yes [id number] 2{puff} Inhale 2 [facility] 90 9-02 Puffs ity of mcg/actuati 00:00: every 4 [place] [facility] on inhaler 00 (four) Medical hours as Branch needed for Wheezing or Shortness of Breath. ondansetron 0 Yes [id number] 4mg Take 1 [facility] (ZOFRAN 9-02 tablet by ity of ODT) 4 mg 00:00: mouth [place] disintegrat 00 every 8 Medic al ing tablet (eight) Branch hours as needed for Nausea and Vomiting (N/V). benzonatate 0 Yes [id number] 100mg Take 1 [facility] 100 mg 9-02 capsule by ity of capsule 00:00: mouth 3 [place] 00 (three) Medical times Branch daily as needed for Cough. bromphenira 0 Yes [id number] 5mL Take 5 mL [facility] mine-pseudo 9-02 by mouth 4 it y of ephedrine-D 00:00: (four) [place] [facility] (BROMFED 00 times Medical DM) 2-30-10 daily as Bran ch mg/5 mL needed for syrup Congestion /Allergies or Cough. albuterol 0 Yes [id number] 2{puff} Inhale 2 [facility] 90 9-02 Puffs ity of mcg/actuati 00:00: every 4 [place] [facility] on inhaler 00 (four) Medical hours as Branch needed for Wheezing or Shortness of Breath. ondansetron 0 Yes [id number] 4mg Take 1 [facility] (ZOFRAN 9-02 tablet by ity of ODT) 4 mg 00:00: mouth [place] disintegrat 00 every 8 Medic al ing tablet (eight) Branch hours as needed for Nausea and Vomiting (N/V). benzonatate 0 Yes [id number] 100mg Take 1 [facility] 100 mg 9-02 capsule by ity of capsule 00:00: mouth 3 [place] 00 (three) Medical times Branch daily as needed for Cough. bromphenira 0 Yes [id number] 5mL Take 5 mL [facility] mine-pseudo 9-02 by mouth 4 it y of ephedrine-D 00:00: (four) [place] [facility] (BROMFED 00 times Medical DM) 2-30-10 daily as Bran ch mg/5 mL needed for syrup Congestion /Allergies or Cough. albuterol 0 Yes [id number] 2{puff} Inhale 2 [facility] 90 9-02 Puffs ity of mcg/actuati 00:00: every 4 [place] [facility] on inhaler 00 (four) Medical hours as Branch needed for Wheezing or Shortness of Breath. ondansetron 0 Yes [id number] 4mg Take 1 [facility] (ZOFRAN 9-02 tablet by ity of ODT) 4 mg 00:00: mouth [place] disintegrat 00 every 8 Medic al ing tablet (eight) Branch hours as needed for Nausea and Vomiting (N/V). benzonatate 2020-0 Yes [id number] 100mg Take 1 [facility] 100 mg 9-02 capsule by ity of capsule 00:00: mouth 3 [place] 00 (three) Medical times Branch daily as needed for Cough. bromphenira 0 Yes [id number] 5mL Take 5 mL [facility] mine-pseudo 9-02 by mouth 4 it y of ephedrine-D 00:00: (four) [place] [facility] (BROMFED 00 times Medical DM) 2-30-10 daily as Bran ch mg/5 mL needed for syrup Congestion /Allergies or Cough. albuterol 0 Yes [id number] 2{puff} Inhale 2 [facility] 90 9-02 Puffs ity of mcg/actuati 00:00: every 4 [place] [facility] on inhaler 00 (four) Medical hours as Branch needed for Wheezing or Shortness of Breath. ondansetron 0 Yes [id number] 4mg Take 1 [facility] (ZOFRAN 9-02 tablet by ity of ODT) 4 mg 00:00: mouth [place] disintegrat 00 every 8 Medic al ing tablet (eight) Branch hours as needed for Nausea and Vomiting (N/V). benzonatate 2020-0 Yes [id number] 100mg Take 1 [facility] 100 mg 9-02 capsule by ity of capsule 00:00: mouth 3 [place] 00 (three) Medical times Branch daily as needed for Cough. bromphenira 2020-0 Yes [id number] 5mL Take 5 mL [facility] mine-pseudo 9-02 by mouth 4 it y of ephedrine-D 00:00: (four) [place] [facility] (BROMFED 00 times Medical DM) 2-30-10 daily as Bran ch mg/5 mL needed for syrup Congestion /Allergies or Cough. albuterol 2020-0 Yes [id number] 2{puff} Inhale 2 [facility] 90 9-02 Puffs ity of mcg/actuati 00:00: every 4 [place] [facility] on inhaler 00 (four) Medical hours as Branch needed for Wheezing or Shortness of Breath. ondansetron 2020-0 Yes [id number] 4mg Take 1 [facility] (ZOFRAN 9-02 tablet by ity of ODT) 4 mg 00:00: mouth [place] disintegrat 00 every 8 Medic al ing tablet (eight) Branch hours as needed for Nausea and Vomiting (N/V). benzonatate 2020-0 Yes [id number] 100mg Take 1 [facility] 100 mg 9-02 capsule by ity of capsule 00:00: mouth 3 [place] 00 (three) Medical times Branch daily as needed for Cough. bromphenira 2020-0 Yes [id number] 5mL Take 5 mL [facility] mine-pseudo 9-02 by mouth 4 it y of ephedrine-D 00:00: (four) [place] [facility] (BROMFED 00 times Medical DM) 2-30-10 daily as Bran ch mg/5 mL needed for syrup Congestion /Allergies or Cough. albuterol 2020-0 Yes [id number] 2{puff} Inhale 2 [facility] 90 9-02 Puffs ity of mcg/actuati 00:00: every 4 [place] [facility] on inhaler 00 (four) Medical hours as Branch needed for Wheezing or Shortness of Breath. ondansetron 2020-0 Yes [id number] 4mg Take 1 [facility] (ZOFRAN 9-02 tablet by ity of ODT) 4 mg 00:00: mouth [place] disintegrat 00 every 8 Medic al ing tablet (eight) Branch hours as needed for Nausea and Vomiting (N/V). benzonatate 2020-0 Yes [id number] 100mg Take 1 [facility] 100 mg 9-02 capsule by ity of capsule 00:00: mouth 3 [place] 00 (three) Medical times Branch daily as needed for Cough. bromphenira 2020-0 Yes [id number] 5mL Take 5 mL [facility] mine-pseudo 9-02 by mouth 4 it y of ephedrine-D 00:00: (four) [place] [facility] (BROMFED 00 times Medical DM) 2-30-10 daily as Bran ch mg/5 mL needed for syrup Congestion /Allergies or Cough. albuterol 0 Yes [id number] 2{puff} Inhale 2 [facility] 90 9-02 Puffs ity of mcg/actuati 00:00: every 4 [place] [facility] on inhaler 00 (four) Medical hours as Branch needed for Wheezing or Shortness of Breath. ondansetron 0 Yes [id number] 4mg Take 1 [facility] (ZOFRAN 9-02 tablet by ity of ODT) 4 mg 00:00: mouth [place] disintegrat 00 every 8 Medic al ing tablet (eight) Branch hours as needed for Nausea and Vomiting (N/V). benzonatate 2020-0 Yes [id number] 100mg Take 1 [facility] 100 mg 9-02 capsule by ity of capsule 00:00: mouth 3 [place] 00 (three) Medical times Branch daily as needed for Cough. bromphenira 0 Yes [id number] 5mL Take 5 mL [facility] mine-pseudo 9-02 by mouth 4 it y of ephedrine-D 00:00: (four) [place] [facility] (BROMFED 00 times Medical DM) 2-30-10 daily as Bran ch mg/5 mL needed for syrup Congestion /Allergies or Cough. albuterol 0 Yes [id number] 2{puff} Inhale 2 [facility] 90 9-02 Puffs ity of mcg/actuati 00:00: every 4 [place] [facility] on inhaler 00 (four) Medical hours as Branch needed for Wheezing or Shortness of Breath. ondansetron 0 Yes [id number] 4mg Take 1 [facility] (ZOFRAN 9-02 tablet by ity of ODT) 4 mg 00:00: mouth [place] disintegrat 00 every 8 Medic al ing tablet (eight) Branch hours as needed for Nausea and Vomiting (N/V). benzonatate 2020-0 Yes [id number] 100mg Take 1 [facility] 100 mg 9-02 capsule by ity of capsule 00:00: mouth 3 [place] 00 (three) Medical times Branch daily as needed for Cough. bromphenira 0 Yes [id number] 5mL Take 5 mL [facility] mine-pseudo 9-02 by mouth 4 it y of ephedrine-D 00:00: (four) [place] [facility] ([facility]OM[facility] 00 times Medical DM) 2-30-10 daily as Bran ch mg/5 mL needed for syrup Congestion /Allergies or Cough. albuterol 2020-0 Yes [id number] 2{puff} Inhale 2 [facility] 90 9-02 Puffs ity of mcg/actuati 00:00: every 4 [place] [facility] on inhaler 00 (four) Medical hours as Branch needed for Wheezing or Shortness of Breath. ondansetron 2020-0 Yes [id number] 4mg Take 1 [facility] (ZOFRAN 9-02 tablet by ity of ODT) 4 mg 00:00: mouth [place] disintegrat 00 every 8 Medic al ing tablet (eight) Branch hours as needed for Nausea and Vomiting (N/V). benzonatate 2020-0 Yes [id number] 100mg Take 1 [facility] 100 mg 9-02 capsule by ity of capsule 00:00: mouth 3 [place] 00 (three) Medical times Branch daily as needed for Cough. bromphenira 2020-0 Yes [id number] 5mL Take 5 mL [facility] mine-pseudo 9-02 by mouth 4 it y of ephedrine-D 00:00: (four) [place] [facility] (BROMFED 00 times Medical DM) 2-30-10 daily as Bran ch mg/5 mL needed for syrup Congestion /Allergies or Cough. albuterol 2020-0 Yes [id number] 2{puff} Inhale 2 [facility] 90 9-02 Puffs ity of mcg/actuati 00:00: every 4 [place] [facility] on inhaler 00 (four) Medical hours as Branch needed for Wheezing or Shortness of Breath. ondansetron 2020-0 Yes [id number] 4mg Take 1 [facility] (ZOFRAN 9-02 tablet by ity of ODT) 4 mg 00:00: mouth [place] disintegrat 00 every 8 Medic al ing tablet (eight) Branch hours as needed for Nausea and Vomiting (N/V). benzonatate 2020-0 Yes [id number] 100mg Take 1 [facility] 100 mg 9-02 capsule by ity of capsule 00:00: mouth 3 [place] 00 (three) Medical times Branch daily as needed for Cough. bromphenira 2020-0 Yes [id number] 5mL Take 5 mL [facility] mine-pseudo 9-02 by mouth 4 it y of ephedrine-D 00:00: (four) [place] [facility] (BROMF[facility] 00 times Medical DM) 2-30-10 daily as Bran ch mg/5 mL needed for syrup Congestion /Allergies or Cough. albuterol 2020-0 Yes [id number] 2{puff} Inhale 2 [facility] 90 9-02 Puffs ity of mcg/actuati 00:00: every 4 [place] [facility] on inhaler 00 (four) Medical hours as Branch needed for Wheezing or Shortness of Breath. ondansetron 2020-0 Yes [id number] 4mg Take 1 [facility] (ZOFRAN 9-02 tablet by ity of ODT) 4 mg 00:00: mouth [place] disintegrat 00 every 8 Medic al ing tablet (eight) Branch hours as needed for Nausea and Vomiting (N/V). benzonatate 2020-0 Yes [id number] 100mg Take 1 [facility] 100 mg 9-02 capsule by ity of capsule 00:00: mouth 3 [place] 00 (three) Medical times Branch daily as needed for Cough. bromphenira 2020-0 Yes [id number] 5mL Take 5 mL [facility] mine-pseudo 9-02 by mouth 4 it y of ephedrine-D 00:00: (four) [place] [facility] (BROMFED 00 times Medical DM) 2-30-10 daily as Bran ch mg/5 mL needed for syrup Congestion /Allergies or Cough. albuterol 2020-0 Yes [id number] 2{puff} Inhale 2 [facility] 90 9-02 Puffs ity of mcg/actuati 00:00: every 4 [place] [facility] on inhaler 00 (four) Medical hours as Branch needed for Wheezing or Shortness of Breath. ondansetron 2020-0 Yes [id number] 4mg Take 1 [facility] (ZOFRAN 9-02 tablet by ity of ODT) 4 mg 00:00: mouth [place] disintegrat 00 every 8 Medic al ing tablet (eight) Branch hours as needed for Nausea and Vomiting (N/V). benzonatate 2020-0 Yes [id number] 100mg Take 1 [facility] 100 mg 9-02 capsule by ity of capsule 00:00: mouth 3 [place] 00 (three) Medical times Branch daily as needed for Cough. bromphenira 2020-0 Yes [id number] 5mL Take 5 mL [facility] mine-pseudo 9-02 by mouth 4 it y of ephedrine-D 00:00: (four) [place] [facility] (BROMF[facility] 00 times Medical DM) 2-30-10 daily as Bran ch mg/5 mL needed for syrup Congestion /Allergies or Cough. albuterol 2020-0 Yes [id number] 2{puff} Inhale 2 [facility] 90 9-02 Puffs ity of mcg/actuati 00:00: every 4 [place] [facility] on inhaler 00 (four) Medical hours as Branch needed for Wheezing or Shortness of Breath. ondansetron 2020-0 Yes [id number] 4mg Take 1 [facility] (ZOFRAN 9-02 tablet by ity of ODT) 4 mg 00:00: mouth [place] disintegrat 00 every 8 Medic al ing tablet (eight) Branch hours as needed for Nausea and Vomiting (N/V). benzonatate 2020-0 Yes [id number] 100mg Take 1 [facility] 100 mg 9-02 capsule by ity of capsule 00:00: mouth 3 [place] 00 (three) Medical times Branch daily as needed for Cough. bromphenira 2020-0 Yes [id number] 5mL Take 5 mL [facility] mine-pseudo 9-02 by mouth 4 it y of ephedrine-D 00:00: (four) [place] [facility] (BROMF[facility] 00 times Medical DM) 2-30-10 daily as Bran ch mg/5 mL needed for syrup Congestion /Allergies or Cough. albuterol 2020-0 Yes [id number] 2{puff} Inhale 2 [facility] 90 9-02 Puffs ity of mcg/actuati 00:00: every 4 [place] [facility] on inhaler 00 (four) Medical hours as Branch needed for Wheezing or Shortness of Breath. ondansetron 2020-0 Yes [id number] 4mg Take 1 [facility] (ZOFRAN 9-02 tablet by ity of ODT) 4 mg 00:00: mouth [place] disintegrat 00 every 8 Medic al ing tablet (eight) Branch hours as needed for Nausea and Vomiting (N/V). benzonatate 2020-0 Yes [id number] 100mg Take 1 [facility] 100 mg 9-02 capsule by ity of capsule 00:00: mouth 3 [place] 00 (three) Medical times Branch daily as needed for Cough. bromphenira 2020-0 Yes [id number] 5mL Take 5 mL [facility] mine-pseudo 9-02 by mouth 4 it y of ephedrine-D 00:00: (four[place] [facility] (BROMFED 00 times Medical DM) 2-30-10 daily as Bran ch mg/5 mL needed for syrup Congestion /Allergies or Cough. albuterol 0 Yes [id number] 2{puff} Inhale 2 [facility] 90 9-02 Puffs ity of mcg/actuati 00:00: every 4 [place] as on inhaler 00 (four) Medical hours as Branch needed for Wheezing or Shortness of Breath. ondansetron 0 Yes [id number] 4mg Take 1 [facility] (ZOFRAN 9-02 tablet by ity of ODT) 4 mg 00:00: mouth [place] disintegrat 00 every 8 Medic al ing tablet (eight) Branch hours as needed for Nausea and Vomiting (N/V). benzonatate 2020-0 Yes [id number] 100mg Take 1 [facility] 100 mg 9-02 capsule by ity of capsule 00:00: mouth 3 [place] 00 (three) Medical times Branch daily as needed for Cough. bromphenira 0 Yes [id number] 5mL Take 5 mL [facility] mine-pseudo 9-02 by mouth 4 it y of ephedrine-D 00:00: (four[place] [facility] ([facility]OMF[facility] 00 times Medical DM) 2-30-10 daily as Bran ch mg/5 mL needed for syrup Congestion /Allergies or Cough. albuterol Yes [id number] 2{puff} Inhale 2 [facility] 90 9-02 Puffs ity of mcg/actuati 00:00: every 4 [place] [facility] on inhaler 00 (four) Medical hours as Branch needed for Wheezing or Shortness of Breath. ondansetron 0 Yes [id number] 4mg Take 1 [facility] (ZOFRAN 9-02 tablet by ity of ODT) 4 mg 00:00: mouth [place] disintegrat 00 every 8 Medic al ing tablet (eight) Branch hours as needed for Nausea and Vomiting (N/V). benzonatate 2020-0 Yes [id number] 100mg Take 1 [facility] 100 mg 9-02 capsule by ity of capsule 00:00: mouth 3 [place] 00 (three) Medical times Branch daily as needed for Cough. bromphenira 2020-0 Yes [id number] 5mL Take 5 mL [facility] mine-pseudo 9-02 by mouth 4 it y of ephedrine-D 00:00: (four[place] [facility] (BROMFED 00 times Medical DM) 2-30-10 daily as Bran ch mg/5 mL needed for syrup Congestion /Allergies or Cough. albuterol Yes [id number] 2{puff} Inhale 2 [facility] 90 9-02 Puffs ity of mcg/actuati 00:00: every 4 [place] [facility] inhaler 00 (four) Medical hours as Branch needed for Wheezing or Shortness of Breath. ondansetron 0 Yes [id number] 4mg Take 1 [facility] (ZOFRAN 9-02 tablet by ity of ODT) 4 mg 00:00: mouth [place] disintegrat 00 every 8 Medic al ing tablet (eight) Branch hours as needed for Nausea and Vomiting (N/V). benzonatate 0 Yes [id number] 100mg Take 1 [facility] 100 mg 9-02 capsule by ity of capsule 00:00: mouth 3 [place] 00 (three) Medical times Branch daily as needed for Cough. bromphenira 0 Yes [id number] 5mL Take 5 mL [facility] mine-pseudo 9-02 by mouth 4 it y of ephedrine-D 00:00: (four[place] [facility] ([facility]OMF[facility] 00 times Medical DM) 2-30-10 daily as Bran ch mg/5 mL needed for syrup Congestion /Allergies or Cough. albuterol Yes [id number] 2{puff} Inhale 2 [facility] 90 9-02 Puffs ity of mcg/actuati 00:00: every 4 [place] [facility] inhaler 00 (four) Medical hours as Branch needed for Wheezing or Shortness of Breath. ondansetron 0 Yes [id number] 4mg Take 1 [facility] (ZOFRAN 9-02 tablet by ity of ODT) 4 mg 00:00: mouth [place] disintegrat 00 every 8 Medic al ing tablet (eight) Branch hours as needed for Nausea and Vomiting (N/V). benzonatate 2020-0 Yes [id number] 100mg Take 1 [facility] 100 mg 9-02 capsule by ity of capsule 00:00: mouth 3 [place] 00 (three) Medical times Branch daily as needed for Cough. bromphenira 2020-0 Yes [id number] 5mL Take 5 mL [facility] mine-pseudo 9-02 by mouth 4 it y of ephedrine-D 00:00: (four) [place] [facility] ([facility]OMF[facility] 00 times Medical DM) 2-30-10 daily as Bran ch mg/5 mL needed for syrup Congestion /Allergies or Cough. albuterol 0 Yes [id number] 2{puff} Inhale 2 [facility] 90 9-02 Puffs ity of mcg/actuati 00:00: every 4 [place] [facility] on inhaler 00 (four) Medical hours as Branch needed for Wheezing or Shortness of Breath. ondansetron 2020-0 Yes [id number] 4mg Take 1 [facility] (ZOFRAN 9-02 tablet by ity of ODT) 4 mg 00:00: mouth [place] disintegrat 00 every 8 Medic al ing tablet (eight) Branch hours as needed for Nausea and Vomiting (N/V). benzonatate 2020-0 Yes [id number] 100mg Take 1 [facility] 100 mg 9-02 capsule by ity of capsule 00:00: mouth 3 (three) Medical times Branch daily as needed for Cough. bromphenira 0 Yes [id number] 5mL Take 5 mL [facility] mine-pseudo 9-02 by mouth 4 it y of ephedrine-D 00:00: (four) [place] [facility] (BROMFED 00 times Medical DM) 2-30-10 daily as Bran ch mg/5 mL needed for syrup Congestion /Allergies or Cough. albuterol 0 Yes [id number] 2{puff} Inhale 2 [facility] 90 9-02 Puffs ity of mcg/actuati 00:00: every 4 [place] [facility] on inhaler 00 (four) Medical hours as Branch needed for Wheezing or Shortness of Breath. ondansetron 2020-0 Yes [id number] 4mg Take 1 [facility] (ZOFRAN 9-02 tablet by ity of ODT) 4 mg 00:00: mouth [place] disintegrat 00 every 8 Medic al ing tablet (eight) Branch hours as needed for Nausea and Vomiting (N/V). benzonatate 2020-0 Yes [id number] 100mg Take 1 [facility] 100 mg 9-02 capsule by ity of capsule 00:00: mouth 3 [place] 00 (three) Medical times Branch daily as needed for Cough. bromphenira 2020-0 Yes [id number] 5mL Take 5 mL [facility] mine-pseudo 9-02 by mouth 4 it y of ephedrine-D 00:00: (four) [place] [facility] (BROMFED 00 times Medical DM) 2-30-10 daily as Bran ch mg/5 mL needed for syrup Congestion /Allergies or Cough. albuterol 2020-0 Yes [id number] 2{puff} Inhale 2 [facility] 90 9-02 Puffs ity of mcg/actuati 00:00: every 4 [place] [facility] on inhaler 00 (four) Medical hours as Branch needed for Wheezing or Shortness of Breath. ondansetron 2020-0 Yes [id number] 4mg Take 1 [facility] (ZOFRAN 9-02 tablet by ity of ODT) 4 mg 00:00: mouth [place] disintegrat 00 every 8 Medic al ing tablet (eight) Branch hours as needed for Nausea and Vomiting (N/V). benzonatate 2020-0 Yes [id number] 100mg Take 1 [facility] 100 mg 9-02 capsule by ity of capsule 00:00: mouth 3 [place] (three) Medical times Branch daily as needed for Cough. bromphenira 2020-0 Yes [id number] 5mL Take 5 mL [facility] mine-pseudo 9-02 by mouth 4 it y of ephedrine-D 00:00: (four) [place] [facility] (BROMF[facility] 00 times Medical DM) 2-30-10 daily as Bran ch mg/5 mL needed for syrup Congestion /Allergies or Cough. albuterol 2020-0 Yes [id number] 2{puff} Inhale 2 [facility] 90 9-02 Puffs ity of mcg/actuati 00:00: every 4 [place] [facility] on inhaler 00 (four) Medical hours as Branch needed for Wheezing or Shortness of Breath. ondansetron 2020-0 Yes [id number] 4mg Take 1 [facility] (ZOFRAN 9-02 tablet by ity of ODT) 4 mg 00:00: mouth [place] disintegrat 00 every 8 Medic al ing tablet (eight) Branch hours as needed for Nausea and Vomiting (N/V). benzonatate 2020-0 Yes [id number] 100mg Take 1 [facility] 100 mg 9-02 capsule by ity of capsule 00:00: mouth 3 [place] 00 (three) Medical times Branch daily as needed for Cough. bromphenira 2020-0 Yes [id number] 5mL Take 5 mL [facility] mine-pseudo 9-02 by mouth 4 it y of ephedrine-D 00:00: (four) [place] [facility] (BROMFED 00 times Medical DM) 2-30-10 daily as Bran ch mg/5 mL needed for syrup Congestion /Allergies or Cough. albuterol Yes [id number] 2{puff} Inhale 2 [facility] 90 9-02 Puffs ity of mcg/actuati 00:00: every 4 [place] [facility] on inhaler 00 (four) Medical hours as Branch needed for Wheezing or Shortness of Breath. ondansetron Yes [id number] 4mg Take 1 [facility] (ZOFRAN 9-02 tablet by ity of ODT) 4 mg 00:00: mouth [place] disintegrat 00 every 8 Medic al ing tablet (eight) Branch hours as needed for Nausea and Vomiting (N/V). benzonatate 2020- Yes [id number] 100mg Take 1 [facility] 100 mg 9-02 capsule by ity of capsule 00:00: mouth 3 [place] 00 (three) Medical times Branch daily as needed for Cough. bromphenira Yes [id number] 5mL Take 5 mL [facility] mine-pseudo 9-02 by mouth 4 it y of ephedrine-D 00:00: (four) [place] [facility] (BROMFED 00 times Medical DM) 2-30-10 daily as Bran ch mg/5 mL needed for syrup Congestion /Allergies or Cough. albuterol Yes [id number] 2{puff} Inhale 2 [facility] 90 9-02 Puffs ity of mcg/actuati 00:00: every 4 [place] [facility] on inhaler 00 (four) Medical hours as Branch needed for Wheezing or Shortness of Breath. ondansetron 2020-0 Yes [id number] 4mg Take 1 [facility] (ZOFRAN 9-02 tablet by ity of ODT) 4 mg 00:00: mouth [place] disintegrat 00 every 8 Medic al ing tablet (eight) Branch hours as needed for Nausea and Vomiting (N/V). benzonatate 2020-0 Yes [id number] 100mg Take 1 [facility] 100 mg 9-02 capsule by ity of capsule 00:00: mouth 3 [place] 00 (three) Medical times Branch daily as needed for Cough. bromphenira 2020-0 Yes [id number] 5mL Take 5 mL [facility] mine-pseudo 9-02 by mouth 4 it y of ephedrine-D 00:00: (four) [place] [facility] (BROMFED 00 times Medical DM) 2-30-10 daily as Bran ch mg/5 mL needed for syrup Congestion /Allergies or Cough. albuterol 2020-0 Yes [id number] 2{puff} Inhale 2 [facility] 90 9-02 Puffs ity of mcg/actuati 00:00: every 4 [place] [facility] on inhaler 00 (four) Medical hours as Branch needed for Wheezing or Shortness of Breath. ondansetron 2020-0 Yes [id number] 4mg Take 1 [facility] (ZOFRAN 9-02 tablet by ity of ODT) 4 mg 00:00: mouth [place] disintegrat 00 every 8 Medic al ing tablet (eight) Branch hours as needed for Nausea and Vomiting (N/V). benzonatate 2020-0 Yes [id number] 100mg Take 1 [facility] 100 mg 9-02 capsule by ity of capsule 00:00: mouth 3 [place] 00 (three) Medical times Branch daily as needed for Cough. bromphenira 2020-0 Yes [id number] 5mL Take 5 mL [facility] mine-pseudo 9-02 by mouth 4 it y of ephedrine-D 00:00: (four) [place] [facility] (BROMFED 00 times Medical DM) 2-30-10 daily as Bran ch mg/5 mL needed for syrup Congestion /Allergies or Cough. albuterol 2020-0 Yes [id number] 2{puff} Inhale 2 [facility] 90 9-02 Puffs ity of mcg/actuati 00:00: every 4 [place] [facility] on inhaler 00 (four) Medical hours as Branch needed for Wheezing or Shortness of Breath. ondansetron 2020-0 Yes [id number] 4mg Take 1 [facility] (ZOFRAN 9-02 tablet by ity of ODT) 4 mg 00:00: mouth [place] disintegrat 00 every 8 Medic al ing tablet (eight) Branch hours as needed for Nausea and Vomiting (N/V). benzonatate 2020-0 Yes [id number] 100mg Take 1 [facility] 100 mg 9-02 capsule by ity of capsule 00:00: mouth 3 [place] 00 (three) Medical times Branch daily as needed for Cough. bromphenira 2020-0 Yes [id number] 5mL Take 5 mL [facility] mine-pseudo 9-02 by mouth 4 it y of ephedrine-D 00:00: (four) [place] [facility] (BROMFED 00 times Medical DM) 2-30-10 daily as Bran ch mg/5 mL needed for syrup Congestion /Allergies or Cough. albuterol 2020-0 Yes [id number] 2{puff} Inhale 2 [facility] 90 9-02 Puffs ity of mcg/actuati 00:00: every 4 [place] [facility] on inhaler 00 (four) Medical hours as Branch needed for Wheezing or Shortness of Breath. ondansetron 2020-0 Yes [id number] 4mg Take 1 [facility] (ZOFRAN 9-02 tablet by ity of ODT) 4 mg 00:00: mouth [place] disintegrat 00 every 8 Medic al ing tablet (eight) Branch hours as needed for Nausea and Vomiting (N/V). benzonatate 2020-0 Yes [id number] 100mg Take 1 [facility] 100 mg 9-02 capsule by ity of capsule 00:00: mouth 3 [place] 00 (three) Medical times Branch daily as needed for Cough. bromphenira 2020-0 Yes [id number] 5mL Take 5 mL [facility] mine-pseudo 9-02 by mouth 4 it y of ephedrine-D 00:00: (four) [place] [facility] (BROMFED 00 times Medical DM) 2-30-10 daily as Bran ch mg/5 mL needed for syrup Congestion /Allergies or Cough. albuterol 2020-0 Yes [id number] 2{puff} Inhale 2 [facility] 90 9-02 Puffs ity of mcg/actuati 00:00: every 4 [place] as on inhaler 00 (four) Medical hours as Branch needed for Wheezing or Shortness of Breath. ondansetron 2020-0 Yes [id number] 4mg Take 1 [facility] (ZOFRAN 9-02 tablet by ity of ODT) 4 mg 00:00: mouth [place] disintegrat 00 every 8 Medic al ing tablet (eight) Branch hours as needed for Nausea and Vomiting (N/V). benzonatate 2020-0 Yes [id number] 100mg Take 1 [facility] 100 mg 9-02 capsule by ity of capsule 00:00: mouth 3 [place] 00 (three) Medical times Branch daily as needed for Cough. bromphenira 2020-0 Yes [id number] 5mL Take 5 mL [facility] mine-pseudo 9-02 by mouth 4 it y of ephedrine-D 00:00: (four) [place] [facility] (BROMFED 00 times Medical DM) 2-30-10 daily as Bran ch mg/5 mL needed for syrup Congestion /Allergies or Cough. albuterol 2020-0 Yes [id number] 2{puff} Inhale 2 [facility] 90 9-02 Puffs ity of mcg/actuati 00:00: every 4 [place] [facility] on inhaler 00 (four) Medical hours as Branch needed for Wheezing or Shortness of Breath. ondansetron 2020-0 Yes [id number] 4mg Take 1 [facility] (ZOFRAN 9-02 tablet by ity of ODT) 4 mg 00:00: mouth [place] disintegrat 00 every 8 Medic al ing tablet (eight) Branch hours as needed for Nausea and Vomiting (N/V). benzonatate 2020-0 Yes [id number] 100mg Take 1 [facility] 100 mg 9-02 capsule by ity of capsule 00:00: mouth 3 [place] 00 (three) Medical times Branch daily as needed for Cough. bromphenira 2020-0 Yes [id number] 5mL Take 5 mL [facility] mine-pseudo 9-02 by mouth 4 it y of ephedrine-D 00:00: (four) [place] [facility] (BROMFED 00 times Medical DM) 2-30-10 daily as Bran ch mg/5 mL needed for syrup Congestion /Allergies or Cough. albuterol 2020-0 Yes [id number] 2{puff} Inhale 2 [facility] 90 9-02 Puffs ity of mcg/actuati 00:00: every 4 [place] as on inhaler 00 (four) Medical hours as Branch needed for Wheezing or Shortness of Breath. ondansetron 2020-0 Yes [id number] 4mg Take 1 [facility] (ZOFRAN 9-02 tablet by ity of ODT) 4 mg 00:00: mouth [place] disintegrat 00 every 8 Medic al ing tablet (eight) Branch hours as needed for Nausea and Vomiting (N/V). benzonatate 2020-0 Yes [id number] 100mg Take 1 [facility] 100 mg 9-02 capsule by ity of capsule 00:00: mouth 3 [place] 00 (three) Medical times Branch daily as needed for Cough. bromphenira 0 Yes [id number] 5mL Take 5 mL [facility] mine-pseudo 9-02 by mouth 4 it y of ephedrine-D 00:00: (four) [place] [facility] (BROMFED 00 times Medical DM) 2-30-10 daily as Bran ch mg/5 mL needed for syrup Congestion /Allergies or Cough. albuterol 0 Yes [id number] 2{puff} Inhale 2 [facility] 90 9-02 Puffs ity of mcg/actuati 00:00: every 4 [place] as on inhaler 00 (four) Medical hours as Branch needed for Wheezing or Shortness of Breath. ondansetron 0 Yes [id number] 4mg Take 1 [facility] (ZOFRAN 9-02 tablet by ity of ODT) 4 mg 00:00: mouth [place] disintegrat 00 every 8 Medic al ing tablet (eight) Branch hours as needed for Nausea and Vomiting (N/V). benzonatate 0 Yes [id number] 100mg Take 1 [facility] 100 mg 9-02 capsule by ity of capsule 00:00: mouth 3 [place] 00 (three) Medical times Branch daily as needed for Cough. bromphenira 0 Yes [id number] 5mL Take 5 mL [facility] mine-pseudo 9-02 by mouth 4 it y of ephedrine-D 00:00: (four) [place] [facility] (BROMFED 00 times Medical DM) 2-30-10 daily as Bran ch mg/5 mL needed for syrup Congestion /Allergies or Cough. albuterol 0 Yes [id number] 2{puff} Inhale 2 [facility] 90 9-02 Puffs ity of mcg/actuati 00:00: every 4 [place] as on inhaler 00 (four) Medical hours as Branch needed for Wheezing or Shortness of Breath. ondansetron 2020-0 Yes [id number] 4mg Take 1 [facility] (ZOFRAN 9-02 tablet by ity of ODT) 4 mg 00:00: mouth [place] disintegrat 00 every 8 Medic al ing tablet (eight) Branch hours as needed for Nausea and Vomiting (N/V). benzonatate 2021-0 Yes [id number] 100mg Take 1 [facility] 100 mg 9-02 capsule by ity of capsule 00:00: mouth 3 [place] 00 (three) Medical times Branch daily as needed for Cough. bromphenira 0 Yes [id number] 5mL Take 5 mL [facility] mine-pseudo 9-02 by mouth 4 it y of ephedrine-D 00:00: (four) [place] [facility] (BROMFED 00 times Medical DM) 2-30-10 daily as Bran ch mg/5 mL needed for syrup Congestion /Allergies or Cough. albuterol Yes [id number] 2{puff} Inhale 2 [facility] 90 9-02 Puffs ity of mcg/actuati 00:00: every 4 [place] as on inhaler 00 (four) Medical hours as Branch needed for Wheezing or Shortness of Breath. ondansetron Yes [id number] 4mg Take 1 [facility] (ZOFRAN 9-02 tablet by ity of ODT) 4 mg 00:00: mouth [place] disintegrat 00 every 8 Medic al ing tablet (eight) Branch hours as needed for Nausea and Vomiting (N/V). benzonatate 0 Yes [id number] 100mg Take 1 [facility] 100 mg 9-02 capsule by ity of capsule 00:00: mouth 3 [place] 00 (three) Medical times Branch daily as needed for Cough. bromphenira 0 Yes [id number] 5mL Take 5 mL [facility] mine-pseudo 9-02 by mouth 4 it y of ephedrine-D 00:00: (four) [place] [facility] (BROMFED 00 times Medical DM) 2-30-10 daily as Bran ch mg/5 mL needed for syrup Congestion /Allergies or Cough. albuterol Yes [id number] 2{puff} Inhale 2 [facility] 90 9-02 Puffs ity of mcg/actuati 00:00: every 4 [place] as on inhaler 00 (four) Medical hours as Branch needed for Wheezing or Shortness of Breath. ondansetron 0 Yes [id number] 4mg Take 1 [facility] (ZOFRAN 9-02 tablet by ity of ODT) 4 mg 00:00: mouth [place] disintegrat 00 every 8 Medic al ing tablet (eight) Branch hours as needed for Nausea and Vomiting (N/V). benzonatate 0 Yes [id number] 100mg Take 1 [facility] 100 mg 9-02 capsule by ity of capsule 00:00: mouth 3 [place] 00 (three) Medical times Branch daily as needed for Cough. bromphenira 0 Yes [id number] 5mL Take 5 mL [facility] mine-pseudo 9-02 by mouth 4 it y of ephedrine-D 00:00: (four) [place] [facility] (BROMFED 00 times Medical DM) 2-30-10 daily as Bran ch mg/5 mL needed for syrup Congestion /Allergies or Cough. albuterol Yes [id number] 2{puff} Inhale 2 [facility] 90 9-02 Puffs ity of mcg/actuati 00:00: every 4 [place] as on inhaler 00 (four) Medical hours as Branch needed for Wheezing or Shortness of Breath. ondansetron 0 Yes [id number] 4mg Take 1 [facility] (ZOFRAN 9-02 tablet by ity of ODT) 4 mg 00:00: mouth [place] disintegrat 00 every 8 Medic al ing tablet (eight) Branch hours as needed for Nausea and Vomiting (N/V). benzonatate 0 Yes [id number] 100mg Take 1 [facility] 100 mg 9-02 capsule by ity of capsule 00:00: mouth 3 [place] 00 (three) Medical times Branch daily as needed for Cough. bromphenira 0 Yes [id number] 5mL Take 5 mL [facility] mine-pseudo 9-02 by mouth 4 it y of ephedrine-D 00:00: (four) [place] [facility] (BROMFED 00 times Medical DM) 2-30-10 daily as Bran ch mg/5 mL needed for syrup Congestion /Allergies or Cough. albuterol 0 Yes [id number] 2{puff} Inhale 2 [facility] 90 9-02 Puffs ity of mcg/actuati 00:00: every 4 [place] as on inhaler 00 (four) Medical hours as Branch needed for Wheezing or Shortness of Breath. ondansetron 0 Yes [id number] 4mg Take 1 [facility] (ZOFRAN 9-02 tablet by ity of ODT) 4 mg 00:00: mouth [place] disintegrat 00 every 8 Medic al ing tablet (eight) Branch hours as needed for Nausea and Vomiting (N/V). Zoloft 100 1-0 No 15mg mg tablet 03-28 00:00: 00 Dose 2020-0 No Unknown 03-28 00:00: 00 Zoloft 100 2020-0 No 15mg mg tablet 03-28 00:00: 00 Dose 2020-0 No Unknown 03-28 00:00: 00 Zoloft 100 2020-0 No 15mg mg tablet 6 00:00: 00 Dose 2020-0 No Unknown 6 00:00: 00 Zoloft 100 2020-0 No 15mg mg tablet 6 00:00: 00 Dose 2020-0 No Unknown 6 00:00: 00 Dose 2020-0 No Unknown 5- 00:00: 00 Dose 2020-0 No Unknown 5-04 00:00: 00 lisinopriL 2020-0 Yes 10mg Take 10 mg U nivers 10 mg 3-18 by mouth. ity of tablet 00:00: [address] lisinopriL 2020-0 Yes 10mg Take 10 mg U nivers 10 mg 3-18 by mouth. ity of tablet 00:00: [place] [facility] lisinopriL 2020-0 Yes 10mg Take 10 mg U nivers 10 mg 3-18 by mouth. ity of tablet 00:00: [place] [facility] lisinopriL 2020-0 Yes 10mg Take 10 mg U nivers 10 mg 3-18 by mouth. ity of tablet 00:00: [place] [facility] lisinopriL 2020-0 Yes 10mg Take 10 mg U nivers 10 mg 3-18 by mouth. ity of tablet 00:00: [place] [facility] lisinopriL 2020-0 Yes 10mg Take 10 mg U nivers 10 mg 3-18 by mouth. ity of tablet 00:00: [address] lisinopriL 1-0 Yes 10mg Take 10 mg U nivers 10 mg 3-18 by mouth. ity of tablet 00:00: [place] [facility] lisinopriL 2021-0 Yes 10mg Take 10 mg U nivers 10 mg 3-18 by mouth. ity of tablet 00:00: [address] lisinopriL 2021-0 Yes 10mg Take 10 mg U nivers 10 mg 3-18 by mouth. ity of tablet 00:00: [place] [facility] lisinopriL 2021-0 Yes 10mg Take 10 mg U nivers 10 mg 3-18 by mouth. ity of tablet 00:00: Medical Branch lisinopriL 2021-0 Yes 10mg Take 10 mg U nivers 10 mg 3-18 by mouth. ity of tablet 00:00: Medical Branch lisinopriL 2021-0 Yes 10mg Take 10 mg U nivers 10 mg 3-18 by mouth. ity of tablet 00:00: [place] [facility] lisinopriL 2021-0 Yes 10mg Take 10 mg U nivers 10 mg 3-18 by mouth. ity of tablet 00:00: [place] [facility] lisinopriL 2021-0 Yes 10mg Take 10 mg U nivers 10 mg 3-18 by mouth. ity of tablet 00:00: [place] [facility] lisinopriL 2021-0 Yes 10mg Take 10 mg U nivers 10 mg 3-18 by mouth. ity of tablet 00:00: [place] [facility] lisinopriL 2021-0 Yes 10mg Take 10 mg U nivers 10 mg 3-18 by mouth. ity of tablet 00:00: [place] [facility] lisinopriL 2021-0 Yes 10mg Take 10 mg U nivers 10 mg 3-18 by mouth. ity of tablet 00:00: [place] [facility] lisinopriL 2021-0 Yes 10mg Take 10 mg U nivers 10 mg 3-18 by mouth. ity of tablet 00:00: [place] [facility] lisinopriL 2021-0 Yes 10mg Take 10 mg U nivers 10 mg 3-18 by mouth. ity of tablet 00:00: [place] [facility] lisinopriL 2021-0 Yes 10mg Take 10 mg U nivers 10 mg 3-18 by mouth. ity of tablet 00:00: [place] [facility] lisinopriL 2021-0 Yes 10mg Take 10 mg U nivers 10 mg 3-18 by mouth. ity of tablet 00:00: [place] [facility] lisinopriL 2021-0 Yes 10mg Take 10 mg U nivers 10 mg 3-18 by mouth. ity of tablet 00:00: [place] [facility] lisinopriL 2021-0 Yes 10mg Take 10 mg U nivers 10 mg 3-18 by mouth. ity of tablet 00:00: [place] [facility] lisinopriL 2021-0 Yes 10mg Take 10 mg U nivers 10 mg 3-18 by mouth. ity of tablet 00:00: [place] [facility] lisinopriL 2021-0 Yes 10mg Take 10 mg U nivers 10 mg 3-18 by mouth. ity of tablet 00:00: [place] [facility] lisinopriL 2021-0 Yes 10mg Take 10 mg U nivers 10 mg 3-18 by mouth. ity of tablet 00:00: [place] [facility] lisinopriL 2021-0 Yes 10mg Take 10 mg U nivers 10 mg 3-18 by mouth. ity of tablet 00:00: [place] [facility] lisinopriL 2021-0 Yes 10mg Take 10 mg U nivers 10 mg 3-18 by mouth. ity of tablet 00:00: [place] [facility] lisinopriL 2021-0 Yes 10mg Take 10 mg U nivers 10 mg 3-18 by mouth. ity of tablet 00:00: [place] [facility] lisinopriL 2021-0 Yes 10mg Take 10 mg U nivers 10 mg 3-18 by mouth. ity of tablet 00:00: [place] [facility] lisinopriL 2021-0 Yes 10mg Take 10 mg U nivers 10 mg 3-18 by mouth. ity of tablet 00:00: [place] [facility] lisinopriL 2021-0 Yes 10mg Take 10 mg U nivers 10 mg 3-18 by mouth. ity of tablet 00:00: [place] [facility] lisinopriL 2021-0 Yes 10mg Take 10 mg U nivers 10 mg 3-18 by mouth. ity of tablet 00:00: [place] [facility] lisinopriL 2021-0 Yes 10mg Take 10 mg U nivers 10 mg 3-18 by mouth. ity of tablet 00:00: [place] [facility] lisinopriL 2021-0 Yes 10mg Take 10 mg U nivers 10 mg 3-18 by mouth. ity of tablet 00:00: [place] [facility] lisinopriL 2021-0 Yes 10mg Take 10 mg U nivers 10 mg 3-18 by mouth. ity of tablet 00:00: [place] [facility] lisinopriL 2021-0 Yes 10mg Take 10 mg U nivers 10 mg 3-18 by mouth. ity of tablet 00:00: [facility] lisinopriL 2021-0 Yes 10mg Take 10 mg U nivers 10 mg 3-18 by mouth. ity of tablet 00:00: [facility] lisinopriL 2021-0 Yes 10mg Take 10 mg U nivers 10 mg 3-18 by mouth. ity of tablet 00:00: [place] [facility] lisinopriL 2021-0 Yes 10mg Take 10 mg U nivers 10 mg 3-18 by mouth. ity of tablet 00:00: [place] [facility] lisinopriL 2021-0 Yes 10mg Take 10 mg U nivers 10 mg 3-18 by mouth. ity of tablet 00:00: [place] [facility] lisinopriL 2021-0 Yes 10mg Take 10 mg U nivers 10 mg 3-18 by mouth. ity of tablet 00:00: [place] [facility] lisinopriL 2021-0 Yes 10mg Take 10 mg U nivers 10 mg 3-18 by mouth. ity of tablet 00:00: [place] [facility] lisinopriL 2021-0 Yes 10mg Take 10 mg U nivers 10 mg 3-18 by mouth. ity of tablet 00:00: [place] [facility] lisinopriL 2021-0 Yes 10mg Take 10 mg U nivers 10 mg 3-18 by mouth. ity of tablet 00:00: [place] [facility] lisinopriL 2021-0 Yes 10mg Take 10 mg U nivers 10 mg 3-18 by mouth. ity of tablet 00:00: [place] [facility] lisinopriL 2021-0 Yes 10mg Take 10 mg U nivers 10 mg 3-18 by mouth. ity of tablet 00:00: [place] [facility] lisinopriL 2021-0 Yes 10mg Take 10 mg U nivers 10 mg 3-18 by mouth. ity of tablet 00:00: [place] [facility] lisinopriL 2021-0 Yes 10mg Take 10 mg U nivers 10 mg 3-18 by mouth. ity of tablet 00:00: [facility] lisinopriL 2021-0 Yes 10mg Take 10 mg U nivers 10 mg 3-18 by mouth. ity of tablet 00:00: [place] [facility] lisinopriL 2020-0 Yes 10mg Take 10 mg U nivers 10 mg 3-18 by mouth. ity of tablet 00:00: [place] [facility] lisinopriL 202-0 Yes 10mg Take 10 mg U nivers 10 mg 3-18 by mouth. ity of tablet 00:00: [place] [facility] lisinopriL 2020-0 Yes 10mg Take 10 mg U nivers 10 mg 3-18 by mouth. ity of tablet 00:00: [place] [facility] lisinopriL 2020-0 Yes 10mg Take 10 mg U nivers 10 mg 3-18 by mouth. ity of tablet 00:00: [place] [facility] lisinopriL 2020-0 Yes 10mg Take 10 mg U nivers 10 mg 3-18 by mouth. ity of tablet 00:00: [place] [facility] lisinopriL 2020-0 Yes 10mg Take 10 mg U nivers 10 mg 3-18 by mouth. ity of tablet 00:00: [place] [facility] lisinopriL 2020-0 Yes 10mg Take 10 mg U nivers 10 mg 3-18 by mouth. ity of tablet 00:00: [place] [facility] Dose 2020-0 No Unknown 1-21 00:00: 00 Dose 2020-0 No Unknown 1-21 00:00: 00 Zoloft 100 202-0 No 15mg mg tablet 1-14 00:00: 00 Zoloft 100 2020-0 No 15mg mg tablet 1-14 00:00: 00 Dose 2019-1 No Unknown 1-23 00:00: 00 Dose 2019-1 No Unknown 1-23 00:00: 00 Dose 2019-1 No Unknown 0-23 00:00: 00 Zoloft 100 2019-1 No 15mg mg tablet 0-23 00:00: 00 Dose 2019-1 No Unknown 0-23 00:00: 00 Dose 2019-1 No Unknown 0-23 00:00: 00 Zoloft 100 2019-1 No 15mg mg tablet 0-23 00:00: 00 Dose 2019-1 No Unknown 0-23 00:00: 00 Dose 2019-1 No Unknown 0-23 00:00: 00 Dose 2020-1 No Unknown 0-23 00:00: 00 Dose 2020-1 No Unknown 0-02 00:00: 00 Dose 2020-1 No Unknown 0-02 00:00: 00 Dose 2020-0 No Unknown 9- 00:00: 00 Dose 2020-0 No Unknown 9- 00:00: 00 Dose 2020-0 No Unknown 9- 00:00: 00 Dose 2020-0 No Unknown 9- 00:00: 00 Dose 2020-0 No Unknown 9- 00:00: 00 Dose 2020-0 No Unknown 9- 00:00: 00 Zoloft 100 2020-0 No 15mg mg tablet 7-14 00:00: 00 hydroxyzine 2020-0 No 51mg HCl 50 mg 7-14 tablet 00:00: 00 Zoloft 100 2020-0 No 15mg mg tablet 7-14 00:00: 00 hydroxyzine 2020-0 No 51mg HCl 50 mg 7-14 tablet 00:00: 00 Dose 2020-0 No Unknown 4-30 00:00: 00 Dose 2020-0 No Unknown 4-30 00:00: 00 Dose 2020-0 No Unknown 3-19 00:00: 00 hydroxyzine 2020-0 No 51mg HCl 50 mg 3-19 tablet 00:00: 00 Dose 2020-0 No Unknown 3-19 00:00: 00 hydroxyzine 2020-0 No 51mg HCl 50 mg 3-19 tablet 00:00: 00 Zoloft 100 2020-0 No 15mg mg tablet 3-10 00:00: 00 hydroxyzine 2020-0 No 51mg HCl 50 mg 3-10 tablet 00:00: 00 Zoloft 100 2020-0 No 15mg mg tablet 3-10 00:00: 00 hydroxyzine 2020-0 No 51mg HCl 50 mg 3-10 tablet 00:00: 00 Zoloft 100 2020-0 No 15mg mg tablet 1-23 00:00: 00 hydroxyzine 2020-0 No 51mg HCl 50 mg 1-23 tablet 00:00: 00 Zoloft 100 2020-0 No 15mg mg tablet 1-23 00:00: 00 hydroxyzine 2020-0 No 51mg HCl 50 mg 1-23 tablet 00:00: 00 Zoloft 100 2020-0 No 1mg mg tablet 1-10 00:00: 00 Zoloft 100 2020-0 No 1mg mg tablet 1-10 00:00: 00 Zoloft 100 2019-1 No 1mg mg tablet 1-14 00:00: 00 hydroxyzine 2019-1 No 51mg HCl 50 mg 1-14 tablet 00:00: 00 Zoloft 100 2019-1 No 1mg mg tablet 1-14 00:00: 00 hydroxyzine 2019-1 No 51mg HCl 50 mg 1-14 tablet 00:00: 00 Zoloft 100 2019-1 No 1mg mg tablet 0-28 00:00: 00 Zoloft 100 2019-1 No 1mg mg tablet 0-28 00:00: 00 Zoloft 100 2019-0 No 1mg mg tablet 6-24 00:00: 00 Zoloft 100 2019-0 No 1mg mg tablet 6-24 00:00: 00 Zoloft 100 2019-0 No 1mg mg tablet 4-09 00:00: 00 buspirone 2019-0 No 1mg 7.5 mg 4-09 tablet 00:00: 00 Zoloft 100 2019-0 No 1mg mg tablet 4-09 00:00: 00 buspirone 2019-0 No 1mg 7.5 mg 4-09 tablet 00:00: 00 Zoloft 50 2019-0 No 1mg mg tablet 1-25 00:00: 00 buspirone 5 2019-0 No 1mg mg tablet 1-25 00:00: 00 Zoloft 50 2019-0 No 1mg mg tablet 1-25 00:00: 00 buspirone 5 2019-0 No 1mg mg tablet 1-25 00:00: 00 Lamictal 25 2019-0 No 2mg mg tablet 1-10 00:00: 00 Lamictal 25 2019-0 No 2mg mg tablet 1-10 00:00: 00 Lamictal 25 2019-0 No 1mg mg tablet 1-03 00:00: 00 Lamictal 25 2019-0 No 1mg mg tablet 1-03 00:00: 00 Lamictal 25 2018-1 No 1mg mg tablet 2-18 00:00: 00 Lamictal 25 2018-1 No 1mg mg tablet 2-18 00:00: 00 Abilify 2 2018-1 No 1mg mg tablet 0-15 00:00: 00 Effexor XR 2018-1 No 1mg 75 mg 0-15 capsule,ext 00:00: ended 00 release Abilify 2 2018-1 No 1mg mg tablet 0-15 00:00: 00 Effexor XR 2018-1 No 1mg 75 mg 0-15 capsule,ext 00:00: ended 00 release Abilify 2 2018-0 No 1mg mg tablet 7-30 00:00: 00 Effexor XR 2018-0 No 1mg 37.5 mg 7-30 capsule,ext 00:00: ended 00 release Abilify 2 2018-0 No 1mg mg tablet 7-30 00:00: 00 Effexor XR 2018-0 No 1mg 37.5 mg 7-30 capsule,ext 00:00: ended 00 release Abilify 2 2018-0 No 1mg mg tablet 6-25 00:00: 00 Effexor XR 2018-0 No 1mg 37.5 mg 6-25 capsule,ext 00:00: ended 00 release Abilify 2 2018-0 No 1mg mg tablet 6-25 00:00: 00 Effexor XR 2018-0 No 1mg 37.5 mg 6-25 capsule,ext 00:00: ended 00 release Abilify 5 2018-0 No 1mg mg tablet 3-26 00:00: 00 sertraline 2018-0 No 2mg 100 mg 3-26 tablet 00:00: 00 Abilify 5 2018-0 No 1mg mg tablet 3-26 00:00: 00 sertraline 2018-0 No 2mg 100 mg 3-26 tablet 00:00: 00 sertraline 2018-0 No 2mg 100 mg 2-14 tablet 00:00: 00 Abilify 2 2018-0 No 1mg mg tablet 2-14 00:00: 00 sertraline 2018-0 No 2mg 100 mg 2-14 tablet 00:00: 00 Abilify 2 2018-0 No 1mg mg tablet 2-14 00:00: 00 sertraline 2018-0 No 2mg 100 mg 1-24 tablet 00:00: 00 Abilify 2 2018-0 No 1mg mg tablet 1-24 00:00: 00 sertraline 2018-0 No 2mg 100 mg 1-24 tablet 00:00: 00 Abilify 2 2018-0 No 1mg mg tablet 1-24 00:00: 00 sertraline 2017-1 No 2mg 100 mg 2-20 tablet 00:00: 00 Abilify 2 2017-1 No 1mg mg tablet 2-20 00:00: 00 sertraline 2017-1 No 2mg 100 mg 2-20 tablet 00:00: 00 Abilify 2 2017-1 No 1mg mg tablet 2-20 00:00: 00 sertraline 2017-0 No 15mg 100 mg 9-19 tablet 00:00: 00 sertraline 2017-0 No 15mg 100 mg 9-19 tablet 00:00: 00 sertraline 2015-1 No 15mg 100 mg 2-13 tablet 00:00: 00 prednisone 2016-1 No 1mg 5 mg tablet 2-13 00:00: 00 sertraline 2016-1 No 15mg 100 mg 2-13 tablet 00:00: 00 prednisone 2015-1 No 1mg 5 mg tablet 2-13 00:00: 00 cyclobenzap 2015-1 No 1mg rine 10 mg 2-13 tablet 00:00: 00 cyclobenzap 1 No 1mg rine 10 mg 2-13 tablet 00:00: 00 Immunizations Ordered Filled Immunization Date Status Comments [facility] e Immunization Name Name SARS-COV-2 COVID-19 2020-12-06 Completed Unive rsity of VACCINE - (MODERNA) 00:00:00 [facility] SARS-COV-2 COVID-19 2020-12-06 Completed Unive rsity of VACCINE - (MODERNA) 00:00:00 [facility] SARS-COV-2 COVID-19 2020-12-06 Completed Unive rsity of VACCINE - (MODERNA) 00:00:00 [facility] SARS-COV-2 COVID-19 2020-12-06 Completed Unive rsity of VACCINE - (MODERNA) 00:00:00 [facility] SARS-COV-2 COVID-19 2020-12-06 Completed Unive rsity of VACCINE - (MODERNA) 00:00:00 [facility] SARS-COV-2 COVID-19 2020-12-06 Completed Unive rsity of VACCINE - (MODERNA) 00:00:00 [facility] SARS-COV-2 COVID-19 2020-12-06 Completed Unive rsity of VACCINE - (MODERNA) 00:00:00 [facility] SARS-COV-2 COVID-19 2020-12-06 Completed Unive rsity of VACCINE - (MODERNA) 00:00:00 [facility] SARS-COV-2 COVID-19 2020-12-06 Completed Unive rsity of VACCINE - (MODERNA) 00:00:00 [facility] SARS-COV-2 COVID-19 2020-12-06 Completed Unive rsity of VACCINE - (MODERNA) 00:00:00 [facility] SARS-COV-2 COVID-19 2020-12-06 Completed Unive rsity of VACCINE - (MODERNA) 00:00:00 [facility] SARS-COV-2 COVID-19 2020-12-06 Completed Unive rsity of VACCINE - (MODERNA) 00:00:00 [facility] SARS-COV-2 COVID-19 2020-12-06 Completed Unive rsity of VACCINE - (MODERNA) 00:00:00 [facility] SARS-COV-2 COVID-19 2020-12-06 Completed Unive rsity of VACCINE - (MODERNA) 00:00:00 [facility] SARS-COV-2 COVID-19 2020-12-06 Completed Unive rsity of VACCINE - (MODERNA) 00:00:00 [facility] SARS-COV-2 COVID-19 2020-12-06 Completed Unive rsity of VACCINE - (MODERNA) 00:00:00 [facility] SARS-COV-2 COVID-19 2020-12-06 Completed Unive rsity of VACCINE - (MODERNA) 00:00:00 [facility] SARS-COV-2 COVID-19 2020-12-06 Completed Unive rsity of VACCINE - (MODERNA) 00:00:00 [facility] SARS-COV-2 COVID-19 2020-12-06 Completed Unive rsity of VACCINE - (MODERNA) 00:00:00 [facility] SARS-COV-2 COVID-19 2020-12-06 Completed Unive rsity of VACCINE - (MODERNA) 00:00:00 [facility] SARS-COV-2 COVID-19 2020-12-06 Completed Unive rsity of VACCINE - (MODERNA) 00:00:00 [facility] SARS-COV-2 COVID-19 2020-12-06 Completed Unive rsity of VACCINE - (MODERNA) 00:00:00 [facility] SARS-COV-2 COVID-19 2020-12-06 Completed Unive rsity of VACCINE - (MODERNA) 00:00:00 [facility] SARS-COV-2 COVID-19 2020-12-06 Completed Unive rsity of VACCINE - (MODERNA) 00:00:00 [facility] SARS-COV-2 COVID-19 2020-12-06 Completed Unive rsity of VACCINE - (MODERNA) 00:00:00 [facility] SARS-COV-2 COVID-19 2020-12-06 Completed Unive rsity of VACCINE - (MODERNA) 00:00:00 [facility] SARS-COV-2 COVID-19 2020-12-06 Completed Unive rsity of VACCINE - (MODERNA) 00:00:00 [facility] SARS-COV-2 COVID-19 2020-12-06 Completed Unive rsity of VACCINE - (MODERNA) 00:00:00 [facility] SARS-COV-2 COVID-19 2020-12-06 Completed Unive rsity of VACCINE - (MODERNA) 00:00:00 [facility] SARS-COV-2 COVID-19 2020-12-06 Completed Unive rsity of VACCINE - (MODERNA) 00:00:00 [facility] Influenza, 2018-07-25 Completed seasonal, inj 00:00:00 Influenza, 2018-07-25 Completed seasonal, inj 00:00:00 Tdap 2017-04-26 Completed 00:00:00 Influenza, 2017-04-26 Completed seasonal, inj 00:00:00 Tdap 2017-04-26 Completed 00:00:00 Influenza, 2017-04-26 Completed seasonal, inj 00:00:00 Vital Signs Vital Name Observation Time Observation Value Comments Source Systolic blood 2022-10-21 13:21:00 109 mm[Hg] Univer sity of pressure [facility] Diastolic blood 2022-10-21 13:21:00 77 mm[Hg] Unive rsity of pressure [facility] Heart rate 2022-10-21 13:21:00 84 /min [facility] Body temperature 2022-10-21 13:21:00 36.11 Rivka Univ ersity [facility] Body height 2022-10-21 13:21:00 152.4 cm [facility] Body weight 2022-10-21 13:21:00 78.971 kg Universi ty [facility] BMI 2022-10-21 13:21:00 34.00 kg/m2 Universi ty [facility] Systolic blood 2022-07-22 22:32:00 120 mm[Hg] [facility]iver [facility]ity of pressure [facility] Diastolic blood 2022-07-22 22:32:00 86 mm[Hg] Unive rsity of pressure [facility] Heart rate 2022-07-22 22:32:00 125 /min Universi ty of [facility] Body temperature 2022-07-22 22:32:00 36.17 [facility] 2022-07-22 22:32:00 152.4 cm Universi ty [facility] Body weight 2022-07-22 22:32:00 78.926 kg Universi ty [facility] BMI 2022-07-22 22:32:00 33.98 kg/m2 [facility]i ty [facility] BP Systolic 2022-03-01 14:51:00 107 mm[Hg] BP Diastolic 2022-03-01 14:51:00 72 mm[Hg] Weight Measured 2022-03-01 14:51:00 180.60 pounds Height Measured 2022-03-01 14:51:00 60.00 inches Body Temperature 2022-03-01 14:51:00 97.20 degrees Heart Rate 2022-03-01 14:51:00 96.00 /min Respiratory Rate 2022-03-01 14:51:00 BP Systolic 2022-02-09 17:32:00 BP Diastolic 2022-02-09 17:32:00 Weight Measured 2022-02-09 17:32:00 Height Measured 2022-02-09 17:32:00 Body Temperature 2022-02-09 17:32:00 Heart Rate 2022-02-09 17:32:00 Respiratory Rate 2022-02-09 17:32:00 BP Systolic 2021-12-14 13:22:00 BP Diastolic 2021-12-14 13:22:00 Weight Measured 2021-12-14 13:22:00 172.00 pounds Height Measured 2021-12-14 13:22:00 60.00 inches Body Temperature 2021-12-14 13:22:00 Heart Rate 2021-12-14 13:22:00 Respiratory Rate 2021-12-14 13:22:00 BP Systolic 2021-10-13 16:44:00 102 mm[Hg] BP Diastolic 2021-10-13 16:44:00 63 mm[Hg] Weight Measured 2021-10-13 16:44:00 169.20 pounds Height Measured 2021-10-13 16:44:00 60.00 inches Body Temperature 2021-10-13 16:44:00 97.50 degrees Heart Rate 2021-10-13 16:44:00 94.00 /min Respiratory Rate 2021-10-13 16:44:00 BP Systolic 2021-06-25 16:07:00 112 mm[Hg] BP Diastolic 2021-06-25 16:07:00 72 mm[Hg] Weight Measured 2021-06-25 16:07:00 163.60 pounds Height Measured 2021-06-25 16:07:00 60.00 inches Body Temperature 2021-06-25 16:07:00 98.80 degrees Heart Rate 2021-06-25 16:07:00 98.00 /min Respiratory Rate 2021-06-25 16:07:00 BP Systolic 2021-06-16 15:36:00 140 mm[Hg] BP Diastolic 2021-06-16 15:36:00 78 mm[Hg] Weight Measured 2021-06-16 15:36:00 163.00 pounds Height Measured 2021-06-16 15:36:00 60.00 inches Body Temperature 2021-06-16 15:36:00 98.70 degrees Heart Rate 2021-06-16 15:36:00 105.00 /min Respiratory Rate 2021-06-16 15:36:00 BP Systolic 2021-06-15 16:22:00 123 mm[Hg] BP Diastolic 2021-06-15 16:22:00 79 mm[Hg] Weight Measured 2021-06-15 16:22:00 163.60 pounds Height Measured 2021-06-15 16:22:00 60.00 inches Body Temperature 2021-06-15 16:22:00 98.50 degrees Heart Rate 2021-06-15 16:22:00 95.00 /min Respiratory Rate 2021-06-15 16:22:00 BP Systolic 2021-05-25 13:33:00 127 mm[Hg] BP Diastolic 2021-05-25 13:33:00 74 mm[Hg] Weight Measured 2021-05-25 13:33:00 161.00 pounds Height Measured 2021-05-25 13:33:00 60.00 inches Body Temperature 2021-05-25 13:33:00 98.30 degrees Heart Rate 2021-05-25 13:33:00 116.00 /min Respiratory Rate 2021-05-25 13:33:00 BP Systolic 2020-08-28 12:27:00 BP Diastolic 2020-08-28 12:27:00 Weight Measured 2020-08-28 12:27:00 Height Measured 2020-08-28 12:27:00 Body Temperature 2020-08-28 12:27:00 Heart Rate 2020-08-28 12:27:00 Respiratory Rate 2020-08-28 12:27:00 BP Systolic 2020-05-09 17:31:00 141 mm[Hg] BP Diastolic 2020-05-09 17:31:00 95 mm[Hg] Weight Measured 2020-05-09 17:31:00 172.40 pounds Height Measured 2020-05-09 17:31:00 60.00 inches Body Temperature 2020-05-09 17:31:00 98.40 degrees Heart Rate 2020-05-09 17:31:00 86.00 /min Respiratory Rate 2020-05-09 17:31:00 17.00 /min BP Systolic 2020-04-09 15:42:00 150 mm[Hg] BP Diastolic 2020-04-09 15:42:00 88 mm[Hg] Weight Measured 2020-04-09 15:42:00 172.60 pounds Height Measured 2020-04-09 15:42:00 60.00 inches Body Temperature 2020-04-09 15:42:00 99.00 degrees Heart Rate 2020-04-09 15:42:00 86.00 /min Respiratory Rate 2020-04-09 15:42:00 17.00 /min Procedures Procedure Date / Time Performing Clinician Source Performed AUTHORIZATION FOR 2022-11-10 05:01:00 Doctor Unassigned, No [facility] [place] RELEASE OF PHI Name Medical Branch XR CHEST 2 2022-10-28 21:18:07 Roberto Singh Perham [facility] [place] [facility] XR SCOLIOSIS SURVEY 2 2022-10-21 14:07:44 Felipe Herzog [facility] EXTERNAL PROVIDER 2022-10-19 05:01:00 Doctor Unassigned, No [facility] [place] RECORDS Name Medical Branch REFERRAL- 2022-09-08 06:01:00 [facility] Name [facility] REFERRAL- 2022-04-22 05:01:00 [facility]RESPONSE Name [facility] Branch ASSIGNMENT OF BENEFITS 2022-03-23 19:23:08 Doctor Unassigned, No [facility] Name Medical Branch CONSENT/REFUSAL FOR 2022-03-23 19:22:45 [facility] Name [facility] EXTERNAL PROVIDER 2022-03-11 05:01:00 [facility] MR THORACIC SPINE WO 2022-03-10 22:08:00 [facility] [place] CONTRAST Medical Branch MR LUMBAR SPINE WO 2022-03-10 22:03:42 [facility] [place] [facility] CONTRAST Medical Branch MR CERVICAL SPINE WO 2022-03-10 21:26:19 [facility] [place] [facility] DEXA AXIAL (HIP AND 2022-03-10 20:09:14 [facility] [place] [facility] SPINE) Medical Branch DISCLOSURE AND CONSENT, 2022-02-26 05:01:00 Doctor Unassigned, N o [facility] MEDICAL AND SURGICAL Name Medical [facility] PROCEDURES Plan of Care Planned Activity Planned Date Details Comments Source Goal Plan of Care Note [code = 72033-7] Goal Plan of Care Note [code = 88978-9] Goal Plan of Care Note [code = 70293-2] Goal Plan of Care Note [code = 69619-5] Goal Plan of Care Note [code = 80332-7] Goal Plan of Care Note [code = 63361-5] Goal Plan of Care Note [code = 54651-9] Goal Plan of Care Note [code = 22581-2] Goal Plan of Care Note [code = 94359-3] Goal Plan of Care Note [code = 83784-1] Goal Plan of Care Note [code = 60819-5] Goal Plan of Care Note [code = 98942-5] Goal Plan of Care Note [code = 11877-8] Goal Plan of Care Note [code = 23684-4] Goal Plan of Care Note [code = 76402-1] Goal Plan of Care Note [code = 65680-7] Goal Plan of Care Note [code = 08538-0] Goal Plan of Care Note [code = 24777-9] Goal Plan of Care Note [code = 83612-1] Goal Plan of Care Note [code = 88826-5] Goal Plan of Care Note [code = 77370-4] Goal Plan of Care Note [code = 85768-9] Goal Plan of Care Note [code = 52819-8] Goal Plan of Care Note [code = 83510-0] Goal Plan of Care Note [code = 80071-1] Goal Plan of Care Note [code = 75975-6] Goal Plan of Care Note [code = 34362-1] Goal Plan of Care Note [code = 89138-7] Goal Plan of Care Note [code = 76142-4] Goal Plan of Care Note [code = 16652-4] Goal Plan of Care Note [code = 45602-2] Goal Plan of Care Note [code = 71285-6] Goal Plan of Care Note [code = 69676-2] Goal Plan of Care Note [code = 18689-6] Goal Plan of Care Note [code = 46370-4] Goal Plan of Care Note [code = 17241-8] Goal Plan of Care Note [code = 82414-3] Goal Plan of Care Note [code = 14636-9] Goal Plan of Care Note [code = 49351-4] Goal Plan of Care Note [code = 32612-7] Goal Plan of Care Note [code = 45730-6] Goal Plan of Care Note [code = 53185-1] Goal Plan of Care Note [code = 24196-5] Goal Plan of Care Note [code = 39995-2] Goal Plan of Care Note [code = 49580-9] Goal Plan of Care Note [code = 21540-3] Goal Plan of Care Note [code = 01138-0] Goal Plan of Care Note [code = 79606-3] Goal Plan of Care Note [code = 36994-4] Goal Plan of Care Note [code = 72601-3] Goal Plan of Care Note [code = 24415-4] Goal Plan of Care Note [code = 10222-3] Goal Plan of Care Note [code = 54378-7] Goal Plan of Care Note [code = 19521-9] Goal Plan of Care Note [code = 50177-8] Encounters Start End Encounter Admission Attending Care Care Encounter Source Date/Time Date/Time Type Type Clinicians Facility Department ID 2023-02-23 2023-02-23 Outpatient [facility] [id number] Memoria 15:00:00 15:00:00 00 l Jose De Jesus 2022-12-06 2022-12-06 Telephone [facility] 1.2.840.114 [id number] Univers 00:00:00 00:00:00 , Felipe SPECIALTY [id number] [id number] [place] ackarissa BRADNeva [address] [facility] 2022-11-10 2022-11-10 Telephone [facility] 1.2.840.114 [id number] Univers 00:00:00 00:00:00 , Felipe SPECIALTY [id number] [id number] [id number] Nh dical BRADY [address] [facility] 2022-11-10 2022-11-10 Orders Doctor NICOLE 1.2.840.114 [id number] Univers 00:00:00 00:00:00 Only Unassigned, VICKY [id number] ity of [place] [facility] 4.2.7.2.686 Neal as [phone] [facility] 009 Arabi 2022-11-04 2022-11-04 Telephone [facility] 1.2.840.114 [id number] Univers 00:00:00 00:00:00 , Felipe SPECIALTY [id number] ity of CARE [id number] [facility] [id number] Nh dickarissa SALINASY [address] [facility] 2022-11-02 2022-11-02 Telephone [facility] 1.2.840.114 [id number] Univers 00:00:00 00:00:00 , Felipe SPECIALTY [id number] ity of CARE 4.2.7.2.686 [facility] [id number] Nh dickarissa VICTORY [address] [facility] 2022-10-28 2022-10-28 Outpatient R [facility] [id number] Univers 15:56:01 23:59:00 , FELIPE ity of [facility] 2022-10-28 2022-10-28 [facility] 1.2.840.114 [id number] Univers 15:56:01 23:59:00 Encounter Felipe [id number] [facility]y of [facility] 4.2.7.2.686 [facility] [id number] [facility] xiomy 807 Arabi 2022-10-28 2022-10-28 Outpatient R ALEX [facility] [id number] Univers 14:30:00 15:56:16 KRISTY itneva of [facility] 2022-10-28 2022-10-28 Ancillary Georgina Molina [facility] 1 .2.840.114 [id number] Univers 14:30:00 15:56:16 Visit Kristy Salmeron [id number] ity of [facility] [id number] [facility] s PROFESSIO [id number] Nh dical NAL 179 [facility] 2022-10-28 2022-10-28 Telephone [facility] 1.2.840.114 [id number] Univers 00:00:00 00:00:00 , Felipe SPECIALTY [id number] ity of CARE [id number] [facility] [id number] Nh dical BRADY [address] [facility] 2022-10-25 2022-10-25 Import Clerk Lab, [facility] 1.2.840.114 [id number] Univers 11:30:00 11:45:00 Visit Mino, Felipe SPECIALTY 350.1.13. 10 [id number] [id number] Nh judith BEAULIEU [address] [facility] 2022-10-25 2022-10-25 Outpatient R [facility] [id number] Univers 11:30:00 11:30:00 , FELIPE ity of [facility] 2022-10-21 2022-10-21 Hospital [facility] 1.2.840.114 [id number] Univers 08:04:42 23:59:00 Encounter , Felipe SPECIALTY [id number] [id number] [id number] Nh ackarissa BEAULIEU 809 [facility] 2022-10-21 2022-10-21 Outpatient R [facility] [id number] Univers 08:15:00 10:08:14 , FELIPE ity of [facility] 2022-10-21 2022-10-21 Office [facility] 1.2.840.114 [id number] Univers 08:15:00 10:08:14 Visit , Felipe SPECIALTY [id number] [id number] [phone] Nh judith BEAULIEU 198 [facility] 2022-10-21 2022-10-21 Abstract [facility] 1.2.840.114 [id number] Univers 00:00:00 00:00:00 , Felipe SPECIALTY [id number] [id number] [phone] Nh ackarissa BEAULIEU 809 [facility] 2022-10-19 2022-10-19 Orders Doctor NICOLE 1.2.840.114 [id number] Univers 00:00:00 00:00:00 Only Unassigned, VICKY [id number] ity of [facility] 4.2.7.2.686 [place] as [phone] [address] 2022-10-14 2022-10-14 [facility] [id number] Univers 16:30:00 17:13:41 , FELIPE ity of [facility] 2022-10-14 2022-10-14 Telemedici [facility] 1.2.840.114 [id number] Univers 16:30:00 17:13:41 ne Visit , Felipe SPECIALTY [id number] [place]2.[place] [phone] Nh judith BEAULIEU [address] [place] [address] 2022-10-13 2022-10-13 Telephone [facility] 1.2.840.114 [id number] Univers 00:00:00 00:00:00 , Felipe SPECIALTY 350.1.13.10 [place] [phone] Nh judith BEAULIEU [address] [place] [address] 2022-10-07 2022-10-07 Telephone [facility] 1.2.840.114 [id number] Univers 00:00:00 00:00:00 , [place]ipe SPECIALTY 350.1.13.10 [place] [phone] Nh judith BEAULIEU [address] [place] [address] 2022-10-05 2022-10-05 Telephone [facility] 1.2.840.114 [id number] Univers 00:00:00 00:00:00 , [place] SPECIALTY 350.1.13.10 [place] [phone] Nh judith BEAULIEU [address] [place] [address] 2022-09-23 2022-09-23 Telephone [facility] 1.2.840.114 [id number] Univers 00:00:00 00:00:00 , [place] SPECIALTY 350.1.13.10 [place] [phone] Nh judith BEAULIEU [address] [place] [address] 2022-09-16 2022-09-16 Telephone [facility] 1.2.840.114 [id number] Univers 00:00:00 00:00:00 , [place] SPECIALTY 350.1.13.10 [place] [phone] Nh judith BEAULIEU [address] [place] [address] 2022-09-08 2022-09-08 Orders Doctor NICOLE 1.2.840.114 [id number] Univers 00:00:00 00:00:00 Only Unassigned, VICKY 350.1.13.10 ity of [facility] 4.2.7.2.686 Neal as [phone] [facility] [address] 2022-09-07 2022-09-07 Outpatient R TIMI, [facility] [id number] Univers 10:00:00 10:00:00 WEN ity o f [facility] 2022-08-23 2022-08-23 Telephone NICOLE BuenoIT 1.2.840.114 [id number] Univers 00:00:00 00:00:00 [facility] 350.1.13.10 i ty of CL[place] [id number] [facility] 084 [place] 2022-08-17 2022-08-17 Outpatient Laurie SABA, [facility] [id number] Univers 13:30:00 13:30:00 [facility] 2022-08-16 Telephone NICOLE NgIT 1.2.840.114 [id number] Univers 00:00:00 00:00:00 [facility] 350.1.13.10 i ty of [place] [id number] [place] [address]104 [place] 2022-08-09 2022-08-09 Outpatient R NANCY, [facility] [id number] Univers 15:15:00 15:15:00 [facility]-07-22 2022-07-22 [facility] 1.2.840.114 [id number] Univers 17:45:53 23:59:00 Encounter , [place]ipe SPECIALTY 350.1.13.10 [place] [id number] Nh judith BEAULIEU 809 [facility] 2022-07-22 2022-07-22 [facility] 1.2.840.114 [id number] Univers 17:38:15 17:44:00 Encounter , [place] SPECIALTY 350.1.13.10 [place] [phone] Nh judith BEAULIEU 807 [facility] 2022-07-22 2022-07-22 Outpatient R [facility] 511 [id number] Univers 00:00:00 17:44:00 , FELIPE ity [facility] 2022-07-22 2022-07-22 Office [facility] 1.2.840.114 [id number] Univers 16:30:00 16:45:00 Visit , [place] SPECIALTY 350.1.13.10 [place] [phone] Nh judith BEAULIEU 198 [facility] 2022-07-20 2022-07-20 Telephone [facility] 1.2.840.114 [id number] Univers 00:00:00 00:00:00 , [place] SPECIALTY 350.1.13.10 [place] [phone] Nh judith BEAULIEU 198 [facility] 2022-07-15 2022-07-15 Telephone [facility] 1.2.840.114 [id number] Univers 00:00:00 00:00:00 , [place] SPECIALTY 350.1.13.10 [place] [phone] Nh judith BEAULIEU 198 [facility] 2022-07-08 2022-07-08 Outpatient R [facility] [id number] Univers 13:45:00 13:45:00 , FELIPE ity [facility] 2022-07-07 2022-07-07 Outpatient R TIMI [facility] [id number] Univers 13:00:00 13:00:00 WEN murcia o f [facility] 2022-06-03 2022-06-03 Outpatient R MATT MOODYN [facility] [id number] Univers 14:00:00 14:00:00 CECELIA MOODY i ty of [facility] 2022-06-03 2022-06-03 [facility] [id number] Univers 14:00:00 14:00:00 CECELIA MOODY i ty of [facility] 2022-04-30 2022-04-30 Telephone [facility] 1.2.840.114 [id number] Univers 00:00:00 00:00:00 , [place] SPECIALTY 350.1.13.10 [place] [phone] Nh ackarissa SALINAS[address] 2022-04-22 2022-04-22 Orders Doctor NICOLE 1.2.840.114 [id number] Univers 00:00:00 00:00:00 Only Unassigned, VICKY 350.1.13.10 ity of [facility] 4.2.7.2.686 [place] as [id number] [address] 2022-04-19 2022-04-19 Telephone [facility] 1.2.840.114 [id number] Univers 00:00:00 00:00:00 , [place] SPECIALTY 350.1.13.10 [place] [phone] Nh ackarissa HATILLONeva [address] [place] [address] 2022-04-07 2022-04-07 Outpatient R RADIOLOGY [facility] [id number] Univers 00:00:00 00:00:00 ity of [facility] 2022-03-25 2022-03-25 Import Clerk Test, Vtc Pulmonary Function [facility] 1.2.840.114 [id number] Univers 08:00:00 09:00:00 Visit Unknown, Attending MULTISPEC 350.1.13. 10 [place] [phone] [facility] AND PETTY 083 [place] [facility] 2022-03-25 2022-03-25 Outpatient R UNKNOWN, [facility] [id number] Univers 08:00:00 08:00:00 ATTENDING ity [facility] 2022-03-24 2022-03-24 Outpatient R [facility] [id number] Univers 08:00:00 08:00:00 ity of [facility] 2022-03-24 2022-03-24 Outpatient R [facility] [id number] Univers 08:00:00 08:00:00 ity [facility] 2022-03-23 2022-03-23 Laboratory Only, Adc Test [facility] 1.2.840. 114 [id number] Univers 14:00:00 14:15:00 Only Lena Quinones 350.1.13.10 ity [facility] 4.2.7.2.686 [facility] [phone] [facility] [address] [place] 2022-03-23 2022-03-23 [facility] [id number] Univers 14:00:00 14:00:00 LENA ity [facility] 2022-03-23 2022-03-23 Orders Doctor RIVERA 1.2.840.114 [id number] Univers 00:00:00 00:00:00 Only Unassigned, VICKY 350.1.13.10 ity of [facility] 4.2.7.2.[id number] 2022-03-16 2022-03-16 Outpatient R [facility] [id number] Univers 13:00:00 13:00:00 ity of [facility] 2022-03-11 2022-03-11 [facility] 1.2.840.114 [id number] Univers 16:30:00 16:45:00 ne Visit , [place] SPECIALTY 350.1.13.10 ity of [facility] 4.2.7.2.686 [facility] AT [id number] Nh judith SALINASNeva [address] [place] [address] 2022-03-11 2022-03-11 [facility] [id number] Univers 16:30:00 16:30:00 , FELIPE ity [facility] 2022-03-11 2022-03-11 Orders Doctor NICOLE 1.2.840.114 [id number] Univers 00:00:00 00:00:00 Only Unassigned, VICKY 350.1.13.10 ity of [facility] 4.2.7.2.686 [place] as [phone] [facility] [address] 2022-03-11 2022-03-11 Telephone Shalom [facility] 1.2.076.187 [id number] Univers 00:00:00 00:00:00 Bettie NG 350.1.13.10 i ty of [place] [id number] Nh dical [place] [address] [address] [facility] 2022-03-10 2022-03-10 [facility] 1.2.840.114 [id number] Univers 15:11:33 23:59:00 Encounter , Felipe Y HEALTH 350.1.13.10 ity of CL[place] [id number] [facility] 804 [place] 2022-03-10 2022-03-10 [facility] 1.2.840.114 [id number] Univers 15:11:05 23:59:00 Encounter , Felipe Y HEALTH 350.1.13.10 ity of CL[place] [id number] [place] 6[address]14 [place] 2022-03-10 2022-03-10 [facility] 1.2.840.114 [id number] Univers 15:00:00 15:10:00 Encounter , Felipe Y HEALTH 350.1.13.10 [place] [id number] [address] 2022-03-10 2022-03-10 Outpatient R [facility] 335 [id number] Univers 14:50:03 14:59:00 , FELIPE ity of [facility] 2022-03-10 2022-03-10 [facility] 1.2.840.114 [id number] Univers 14:45:00 14:59:00 Encounter , Felipe Y HEALTH 350.1.13.10 ity of [place] [id number] [facility] [address] [place] 2022-03-09 2022-03-09 Telephone [facility] 1.2.840.114 [id number] Univers 00:00:00 00:00:00 , [place] SPECIALTY 350.1.13.10 [place] [id number] Nh judith BEAULIEU 198 [facility] 2022-03-08 2022-03-08 Telephone [facility] 1.2.840.114 [id number] Univers 00:00:00 00:00:00 , [place] SPECIALTY 350.1.13.10 [place] [id number] Nh judith BEAULIEU 198 [facility] 2022-03-03 2022-03-03 Outpatient R [facility] [id number] Univers 13:00:00 13:00:00 ity of [facility] 2022-03-01 2022-03-01 Outpatient [id number] [id number] 00:00:00 00:00:00 Visit [id number] -[id number] [id number] 524309 9325-07-25 2022-03-01 Letter Testing, [facility] 1.2.840.114 [id number] Univers 00:00:00 00:00:00 (Out) [facility] 350.1.13.10 i ty of Pulmonary CLINICS [place].2.[place] [id number] Med ical 083 [place] 2022-02-26 2022-02-26 Orders Doctor NICOLE 1.2.840.114 [id number] Univers 00:00:00 00:00:00 Only Unassigned, VICKY 350.1.13.10 ity of [place] [facility] 4.2.7.2.686 [place] as [id number] [facility] 009 [place] 2022-02-25 2022-02-25 Telephone [facility] 1.2.840.114 [id number] Univers 00:00:00 00:00:00 , Felipe SPECIALTY 350.1.13.10 [place] [phone] Nh judith BEAULIEU [address] [place] [address] 2022-02-23 2022-02-23 Office Fellow, Pulmonary [facility] 1.2.84 0.114 [id number] Univers 08:00:00 09:00:00 Visit Juan M [facility] 350.1. 13.10 ity of CLINICS 4.2.7.2.686 [facility] [id number] [facility] [address] 2022-02-23 2022-02-23 Outpatient R MARTINA [facility] [id number] Univers 08:00:00 08:00:00 JUAN M corbin [facility] 2022-02-16 2022-02-16 Outpatient R NANCY [facility] [id number] Univers 13:00[facility]00 [facility]22-[facility]-10 [facility] [id number] Univers 00:00:00 00:00:00 , [facility] 2022-02-10 2022-02-10 Outpatient [facility] [id number] Univers 00:00:00 00:00:00 , [facility] 2022-02-09 2022-02-09 Outpatient [id number] 00:00:00 00:00:00 Visit [id number] [id number] 2022-02-05 2022-02-05 Outpatient Laurie MACK [facility] [id number] Univers 09:00:00 09:00:00 JUAN M corbin [facility] 2022-02-05 2022-02-05 Outpatient Laurie MACK [facility] [id number] Univers 09:00:00 09:00:00 JUAN M corbin [facility] 2022-01-182022-01-18 Outpatient R MINO [facility] [id number] Univers 00:00:00 00:00:00 , FELIPE ity [facility] 2022-01-18 2022-01-18 Outpatient R MINO [facility] [id number] Univers 00:00:00 00:00:00 , FELIPE murcia [facility] 2022-01-18 2022-01-18 Outpatient R MINO [facility] [id number] Univers 00:00:00 00:00:00 , FELIPEKENYON murcia [facility] 2022-01-05 2022-01-05 Outpatient R NANCY [facility] [id number] Univers 16:00:00 16:00:00 NATEORI murcia [facility] 2022-01-05 2022-01-05 [facility] [id number] Univers 16:00:00 16:00:00 [facility] 2021-12-29 2021-12-29 [facility] 1.2.840.114 [id number] Univers 00:00:00 00:00:00 , [place]ipe SPECIALTY 350.1.13.10 [place] [phone] Nh judith BEAULIEU [address] [place] [address] 2021-12-29 2021-12-29 Telephone [facility] 1.2.840.114 [id number] Univers 00:00:00 00:00:00 , [place] SPECIALTY 350.1.13.10 ity [place] [id number] Nh dickarissa SALINASY [address] [place] [address] 2021-12-23 2021-12-23 Telephone [facility] 1.2.840.114 [id number] Univers 00:00:00 00:00:00 , [place] SPECIALTY 350.1.13.10 ity [place]2.[place] [id number] Nh dickarissa BEAULIEU [address] [place] [address] 2021-12-17 2021-12-17 [facility] [id number] Univers 13:46:31 23:59:00 , FELIPE ity [facility] 2021-12-17 2021-12-17 [facility] 1.2.840.114 [id number] Univers 13:46:31 23:59:00 Encounter , Felipe SPECIALTY 350.1.13.10 ity [place] C[place] [id number] Nh judith BEAULIEU 809 [facility] 2021-12-17 2021-12-17 Outpatient [facility] [id number] Univers 13:46:31 23:59:00 , FELIPEKENYON murcia [facility] 2021-12-17 2021-12-17 Import Clerk Vls-Lab [facility] 1.2.840.114 [id number] Univers 16:45:00 17:00:00 Visit Keith Herzogya SPECIALTY 350.1.13. 10 ity of CARE 4.2.7.2.686 [facility] AT [id number] Nh judith BEAULIEU 353 [facility] 2021-12-17 2021-12-17 Outpatient R [facility] [id number] Univers 13:45:00 16:36:26 , FELIPEKENYON murcia [facility] 2021-12-17 2021-12-17 Outpatient [facility] [id number] Univers 13:45:00 16:36:26 , FELIPE murcia [facility] 2021-12-17 2021-12-17 Office [facility] 1.2.840.114 [id number] Univers 13:45:00 16:36:26 Visit , Felipe SPECIALTY 350.1.13.10 ity [place] [phone] Nh judith BEAULIEU 198 [facility] 2021-12-17 2021-12-17 Outpatient R [facility] [id number] Univers 13:45:00 16:36:26 , FELIPE ity [facility] 2021-12-17 2021-12-17 Office [facility] 1.2.840.114 [id number] Univers 13:45:00 16:36:26 Visit , Felipe SPECIALTY 350.1.13.10 ity of CARE 4.2.7.2.686 [place] [facility] AT [phone] Nh judith BEAULIEU [address] [place] [address] 2021-12-17 2021-12-17 Outpatient R MINO [facility] [id number] Univers 13:45:00 13:45:00 , FELIPE ity [facility] 2021-11-17 2021-11-17 Orders Doctor NICOLE 1.2.840.114 [id number] Univers 00:00:00 00:00:00 Only Unassigned, VICKY 350.1.13.10 ity of [place] [facility] 4.2.7.2.686 [place] as 136.3756058 [address] 2021-11-04 2021-11-04 Orders Doctor RIVERA 1.2.840.114 [id number] Univers 00:00:00 00:00:00 Only Unassigned, VICKY 350.1.13.10 ity of [place] [facility] 4.2.7.2.686 [place] as [id number] [address] 2021-10-19 2021-10-19 Orders Doctor RIVERA 1.2.840.114 [id number] Univers 00:00:00 00:00:00 Only Unassigned, VICKY 350.1.13.10 ity of [place] [facility] 4.2.7.2.686 [place] as [id number] [address] 2021-04-10 2021-04-10 Outpatient R TIMI [facility] [id number] Univers 10:00:00 10:00:00 PAGE itneva [facility] 2021-04-10 2021-04-10 Orders Doctor NICOLE Yusuf2.840.114 [id number] Univers 00:00:00 00:00:00 Only Unassigned, VICKY 350.1.13.10 ity of [place] [facility] 4.2.7.2.686 [place] as 247.1935204 [address] 2021-04-09 2021-04-09 Emergency [facility] 1.2.840.114 [id number] Univers 15:40:00 17:13:00 Junior Ng 350.1.13.10 i ty of [place] 4.2.7.2.686 [facility] [id number] [place] [address] [address] 2021-04-09 2021-04-09 Emergency X CHAYA, [facility] ERT [id number] Univers 15:27:00 15:27:00 JUNIOR amilcarneva [facility] 2020-06-27 2020-06-27 Outpatient G_Pappas [facility] 4252-2 0201 [place] 12:50:00 12:50:00 120 [facility] Results Test Description Test Time Test Comments Results Result Comments Source CULTURE, ROUTINE 2021-06-21 00:00:00 Test Item Value Reference Range Interpretation Comme nts CULTURE, ROUTINE (test code = 11003) SPECIMEN NUMBER: [id number] CULTURE, [id number] 00:00:00 Test Item Value Reference Range Interpretation Comments CULTURE, ROUTINE (test SPECIMEN NUMBER: code = 55865) [id number] CULTURE, [id number] 00:00:00 Test Item Value Reference Range Interpretation Comments CULTURE, ROUTINE (test SPECIMEN NUMBER: code = 88754) [id number] CULTURE, [id number] 00:00:00 Test Item Value Reference Range Interpretation Comments CULTURE, ROUTINE (test SPECIMEN NUMBER: code = 51368) [id number] GC AND CHLAMYDIA AMPLIFIED, [id number] 00:00:00 Test Item Value Reference Range Interpretation Comments GONORRHEA, TMA (test code = 77314) NEGATIVE CHLAMYDIA, TMA (test code = 16288) NEGATIVE VAGINAL PATHOGENS DNA [id number] 00:00:00 Test Item Value Reference Range Interpretation Comments LORE SPECIES (test code = ) NEGATIVE G. VAGINALIS (test code = 92767) POSITIVE T. VAGINALIS (test code = 99707) NEGATIVE ACUTE HEPATITIS [id number] 00:00:00 Test Item Value Reference Range Interpretation Comments HEPATITIS A IgM (test code = NON-REACTIVE 35707) HEPATITIS B CORE IgM (test code NON-REACTIVE = 4644) HEPATITIS B SURF AG (test code = NON-REACTIVE 7629) HEPATITIS C ANTIBODY (test code NON-REACTIVE = 8280) INTERPRETATION HEPATITIS A: (NOTE) (test code = 2552) INTERPRETATION HEPATITIS B: (NOTE) (test code = 71263) INTERPRETATION HEPATITIS C: (NOTE) (test code = 39301) PAP TEST, THINPREP, [id number] 00:00:00 Test Item Value Reference Range Interpretation Comments SOURCE: (test code = Cervical/Endocervical 8001) SLIDES: (test code = 1 8011) LMP: (test code = 8021) 05/18/2021 SPECIMEN ADEQUACY: (test (NOTE) code = 24878) INTERPRETATION: (test NILM/NO EPITH. code = 52224) ABNORMALITY;SEE BELOW OTHER COMMENTS: (test (NOTE) code = 8081) AWNING SPREADER: (test Jeanna code = 8101) BRIANNE Suresh(ASCP) LOCATION: (test code = (NOTE) 98245) CPT: (test code = 8140) (NOTE) HPV HIGH RISK WITH GENOTYPE, [id number] 00:00:00 Test Item Value Reference Range Interpretation Comments HPV HIGH RISK INTERP (test code = NEGATIVE 98152) HPV 16 (test code = 27203) NEGATIVE HPV 18 (test code = 28481) NEGATIVE HPV, HR, OTHER GENOTYPES (test code NEGATIVE = 75648) VAGINAL PATHOGENS DNA [id number] 00:00:00 Test Item Value Reference Range Interpretation Comments LORE SPECIES (test code = 15540) NEGATIVE G. VAGINALIS (test code = 00609) POSITIVE T. VAGINALIS (test code = 41600) NEGATIVE GC AND CHLAMYDIA AMPLIFIED, [id number] 00:00:00 Test Item Value Reference Range Interpretation Comments GONORRHEA, TMA (test code = 97756) NEGATIVE CHLAMYDIA, TMA (test code = 11080) NEGATIVE PAP TEST, THINPREP, [id number] 00:00:00 Test Item Value Reference Range Interpretation Comments SOURCE: (test code = Cervical/Endocervical 8001) SLIDES: (test code = 1 8011) LMP: (test code = 8021) 05/18/2021 SPECIMEN ADEQUACY: (test (NOTE) code = 72830) INTERPRETATION: (test NILM/NO EPITH. code = 08658) ABNORMALITY;SEE BELOW OTHER COMMENTS: (test (NOTE) code = 8081) AWNING SPREADER: (test Jeanna code = 8101) BRIANNE Suresh(ASCP) LOCATION: (test code = (NOTE) 64109) CPT: (test code = 8140) (NOTE) ACUTE HEPATITIS [id number] 00:00:00 Test Item Value Reference Range Interpretation Comments HEPATITIS A IgM (test code = NON-REACTIVE 51685) HEPATITIS B CORE IgM (test code NON-REACTIVE = 4644) HEPATITIS B SURF AG (test code = NON-REACTIVE 4239) HEPATITIS C ANTIBODY (test code NON-REACTIVE = 1364) INTERPRETATION HEPATITIS A: (NOTE) (test code = 2552) INTERPRETATION HEPATITIS B: (NOTE) (test code = 46964) INTERPRETATION HEPATITIS C: (NOTE) (test code = 10816) HPV HIGH RISK WITH GENOTYPE, [id number] 00:00:00 Test Item Value Reference Range Interpretation Comments HPV HIGH RISK INTERP (test code = NEGATIVE 70293) HPV 16 (test code = 74791) NEGATIVE HPV 18 (test code = 52499) NEGATIVE HPV, HR, OTHER GENOTYPES (test code NEGATIVE = 98153) COMPREHENSIVE METABOLIC [id number] 00:00:00 Test Item Value Reference Range Interpretation Comments GLUCOSE (test code = 2217) 84 MG/DL BUN (test code = 2208) 18 MG/DL CREATININE (test code = 2214) 0.94 MG/DL eGFR AMER. (test code 83 ML/MIN/1.73 = 50083) eGFR NON- AMER. (test 72 ML/MIN/1.73 code = 49069) CALC BUN/CREAT (test code = 19 RATIO 2235) SODIUM (test code = 2231) 136 MEQ/L POTASSIUM (test code = 2228) 4.4 MEQ/L CHLORIDE (test code = 2215) 101 MEQ/L CARBON DIOXIDE (test code = 24 MEQ/L 2205) CALCIUM (test code = 2209) 9.7 MG/DL PROTEIN, TOTAL (test code = 7.8 G/DL 2228) ALBUMIN (test code = 2201) 4.7 G/DL CALC GLOBULIN (test code = 3.1 G/DL 2239) CALC A/G RATIO (test code = 1.5 RATIO 2234) BILIRUBIN, TOTAL (test code = <0.2 MG/DL 2206) ALKALINE PHOSPHATASE (test 66 U/L code = 2204) AST (test code = 2218) 19 U/L ALT (test code = 2219) 10 U/L LIPID [id number] 00:00:00 Test Item Value Reference Range Interpretation Comments CHOLESTEROL (test code = 2210) 157 MG/DL TRIGLYCERIDES (test code = 2232) 135 MG/DL HDL CHOLESTEROL (test code = 2220) 40 MG/DL CALC LDL CHOL (test code = 2237) 94 MG/DL RISK RATIO LDL/HDL (test code = 2.35 RATIO 2238) COMPREHENSIVE METABOLIC [id number] 00:00:00 Test Item Value Reference Range Interpretation Comments GLUCOSE (test code = 2217) 84 MG/DL BUN (test code = 2208) 18 MG/DL CREATININE (test code = 2214) 0.94 MG/DL eGFR AMER. (test code 83 ML/MIN/1.73 = 10802) eGFR NON- AMER. (test 72 ML/MIN/1.73 code = 71024) CALC BUN/CREAT (test code = 19 RATIO 2235) SODIUM (test code = 2231) 136 MEQ/L POTASSIUM (test code = 2228) 4.4 MEQ/L CHLORIDE (test code = 2215) 101 MEQ/L CARBON DIOXIDE (test code = 24 MEQ/L 2205) CALCIUM (test code = 2209) 9.7 MG/DL PROTEIN, TOTAL (test code = 7.8 G/DL 2228) ALBUMIN (test code = 2201) 4.7 G/DL CALC GLOBULIN (test code = 3.1 G/DL 2240) CALC A/G RATIO (test code = 1.5 RATIO 2234) BILIRUBIN, TOTAL (test code = <0.2 MG/DL 2206) ALKALINE PHOSPHATASE (test 66 U/L code = 2204) AST (test code = 2218) 19 U/L ALT (test code = 2219) 10 U/L LIPID [id number] 00:00:00 Test Item Value Reference Range Interpretation Comments CHOLESTEROL (test code = 2210) 157 MG/DL TRIGLYCERIDES (test code = 2232) 135 MG/DL HDL CHOLESTEROL (test code = 2220) 40 MG/DL CALC LDL CHOL (test code = 2237) 94 MG/DL RISK RATIO LDL/HDL (test code = 2.35 RATIO 2238) COMPREHENSIVE METABOLIC [id number] 00:00:00 Test Item Value Reference Range Interpretation Comments GLUCOSE (test code = 2217) 93 MG/DL BUN (test code = 2208) 12 MG/DL CREATININE (test code = 2214) 0.81 MG/DL eGFR AMER. (test code 102 ML/MIN/1.73 = 13641) eGFR NON- AMER. (test 88 ML/MIN/1.73 code = 23283) CALC BUN/CREAT (test code = 15 RATIO 2235) SODIUM (test code = 2231) 140 MEQ/L POTASSIUM (test code = 2228) 4.4 MEQ/L CHLORIDE (test code = 2215) 100 MEQ/L CARBON DIOXIDE (test code = 23 MEQ/L 2205) CALCIUM (test code = 2209) 9.3 MG/DL PROTEIN, TOTAL (test code = 7.3 G/DL 2228) ALBUMIN (test code = 220) 4.1 G/DL CALC GLOBULIN (test code = 3.2 G/DL 2239) CALC A/G RATIO (test code = 1.3 RATIO 2233) BILIRUBIN, TOTAL (test code = 0.2 MG/DL 2206) ALKALINE PHOSPHATASE (test 52 U/L code = 2204) AST (test code = 2218) 16 U/L ALT (test code = 2219) 14 U/L [id number] 00:00:00 Test Item Value Reference Range Interpretation Comments AMYLASE (test code = 2205) 32 U/L [id number] 00:00:00 Test Item Value Reference Range Interpretation Comments LIPASE (test code = 2058) 37 U/L [id number] 00:00:00 Test Item Value Reference Range Interpretation Comments LIPASE (test code = 2058) 37 U/L COMPREHENSIVE METABOLIC [id number] 00:00:00 Test Item Value Reference Range Interpretation Comments GLUCOSE (test code = 2217) 93 MG/DL BUN (test code = 2208) 12 MG/DL CREATININE (test code = 2214) 0.81 MG/DL eGFR AMER. (test code 102 ML/MIN/1.73 = 64812) eGFR NON- AMER. (test 88 ML/MIN/1.73 code = 86696) CALC BUN/CREAT (test code = 15 RATIO 2235) SODIUM (test code = 2231) 140 MEQ/L POTASSIUM (test code = 2228) 4.4 MEQ/L CHLORIDE (test code = 2215) 100 MEQ/L CARBON DIOXIDE (test code = 23 MEQ/L 2205) CALCIUM (test code = 2209) 9.3 MG/DL PROTEIN, TOTAL (test code = 7.3 G/DL 2228) ALBUMIN (test code = 2201) 4.1 G/DL CALC GLOBULIN (test code = 3.2 G/DL 2239) CALC A/G RATIO (test code = 1.3 RATIO 2233) BILIRUBIN, TOTAL (test code = 0.2 MG/DL 2206) ALKALINE PHOSPHATASE (test 52 U/L code = 2204) AST (test code = 2218) 16 U/L ALT (test code = 2219) 14 U/L [id number] 00:00:00 Test Item Value Reference Range Interpretation Comments AMYLASE (test code = 2205) 32 U/L [id number] 00:00:00 Test Item Value Reference Range Interpretation Comments LIPASE (test code = 2057) 37 U/L [id number] 00:00:00 Test Item Value Reference Range Interpretation Comments LIPASE (test code = 8) 37 U/L CBC W/AUTO [id number] 00:00:00 Test Item Value Reference Range Interpretation Comments WBC (test code = 1001) 5.4 K/UL RBC (test code = 1002) 4.19 M/UL HEMOGLOBIN (test code = 1003) 12.9 G/DL HEMATOCRIT (test code = 1004) 37.4 % MCV (test code = 1005) 89.3 fL MCH (test code = 1006) 30.8 PG MCHC (test code = 1007) 34.5 G/DL RDW (test code = 1038) 12.8 % NEUTROPHILS (test code = 1008) 50.9 % LYMPHOCYTES (test code = 1010) 34.6 % MONOCYTES (test code = 1011) 12.1 % EOSINOPHILS (test code = 1012) 1.7 % BASOPHILS (test code = 1013) 0.7 % PLATELET COUNT (test code = 1015) 327 K/UL CBC W/AUTO [id number] 00:00:00 Test Item Value Reference Range Interpretation Comments WBC (test code = 1001) 5.4 K/UL RBC (test code = 1002) 4.19 M/UL HEMOGLOBIN (test code = 1003) 12.9 G/DL HEMATOCRIT (test code = 1004) 37.4 % MCV (test code = 1005) 89.3 fL MCH (test code = 1006) 30.8 PG MCHC (test code = 1007) 34.5 G/DL RDW (test code = 1038) 12.8 % NEUTROPHILS (test code = 1008) 50.9 % LYMPHOCYTES (test code = 1010) 34.6 % MONOCYTES (test code = 1011) 12.1 % EOSINOPHILS (test code = 1012) 1.7 % BASOPHILS (test code = 1013) 0.7 % PLATELET COUNT (test code = 1015) 327 K/UL CBC W/AUTO [id number] 00:00:00 Test Item Value Reference Range Interpretation Comments WBC (test code = 1001) 5.4 K/UL RBC (test code = 1002) 4.19 M/UL HEMOGLOBIN (test code = 1003) 12.9 G/DL HEMATOCRIT (test code = 1004) 37.4 % MCV (test code = 1005) 89.3 fL MCH (test code = 1006) 30.8 PG MCHC (test code = 1007) 34.5 G/DL RDW (test code = 1038) 12.8 % NEUTROPHILS (test code = 1008) 50.9 % LYMPHOCYTES (test code = 1010) 34.6 % MONOCYTES (test code = 1011) 12.1 % EOSINOPHILS (test code = 1012) 1.7 % BASOPHILS (test code = 1013) 0.7 % PLATELET COUNT (test code = 1015) 327 K/UL CBC W/AUTO [id number] 00:00:00 Test Item Value Reference Range Interpretation Comments WBC (test code = 1001) 5.4 K/UL RBC (test code = 1002) 4.19 M/UL HEMOGLOBIN (test code = 1003) 12.9 G/DL HEMATOCRIT (test code = 1004) 37.4 % MCV (test code = 1005) 89.3 fL MCH (test code = 1006) 30.8 PG MCHC (test code = 1007) 34.5 G/DL RDW (test code = 1038) 12.8 % NEUTROPHILS (test code = 1008) 50.9 % LYMPHOCYTES (test code = 1010) 34.6 % MONOCYTES (test code = 1011) 12.1 % EOSINOPHILS (test code = 1012) 1.7 % BASOPHILS (test code = 1013) 0.7 % PLATELET COUNT (test code = 1015) 327 K/UL
[2023-01-01 15:30] LABS: Absolute Lymphocytes (CBC) 2.3 K/uL (0.7-4.9); Hematocrit 40.3 % (36.0-45.0); Lymphocytes % 29.9 % (15.3-44.8); MCV 89.1 fL (80-100); RBC Red Blood Cell Count 4.52 M/uL (3.86-4.86)
[2023-01-01 15:35] LABS: Protime INR 1.02
[2023-01-01 15:36] LABS: Specific Gravity 1.024 (1.005-1.030); Urine Bacteria <20 /HPF (<20); Urine Bilirubin NEGATIVE (Negative); Urine Blood 3+ (OVER) (Negative); Urine Clarity Clear (Clear); Urine Color Light-Yellow (Yellow); Urine Glucose NEGATIVE (Negative); Urine Mucus 2+ /HPF (None Seen); Urine Protein TRACE (Negative); Urine Urobilinogen Normal (Normal)
[2023-01-01] MEDS ORDERED: NA CHLORIDE 0.9% 500 ML ONE (15:43)
[2023-01-01 15:55] LABS: Barbiturates NEGATIVE (NEGATIVE); Benzodiazepines NEGATIVE (NEGATIVE); Cocaine NEGATIVE (NEGATIVE); METHAMPHETAM NEGATIVE (NEGATIVE); Methadone NEGATIVE (NEGATIVE); Opiates NEGATIVE (NEGATIVE); Phencyclidine NEGATIVE (NEGATIVE); THC Cannibis NEGATIVE (NEGATIVE)
[2023-01-01 15:58] LABS: ALT/SGPT 21 U/L (13-56); AST/SGOT 17 U/L (15-37); Albumin 3.9 g/dL (3.4-5.0); Alkaline Phosphatase 63 U/L (45-117); BUN Blood Urea Nitrogen 11 mg/dL (7-18); Bicarbonate 28 mEq/L (21-32); Bilirubin Direct 0.1 mg/dL (0-0.2); Bilirubin Indirect, Calculated 0.2 mg/dL (0.2-0.8); Bilirubin Total 0.3 mg/dL (0.2-1.0); Glomerular Filtration Rate 74 ml/min (=/>90); Glucose Level 94 mg/dL (74-106); Lipase 44 U/L (13-75); Magnesium 2.2 mg/dL (1.6-2.4); NT PRO-BNP 14 pg/mL (<125); Potassium 3.4 mEq/L (3.5-5.1); Protein, Total 8.2 g/dL (6.4-8.2); Sodium Level 136 mEq/L (136-145); Troponin High Sensitivity < 3.0 pg/mL (<58.9)
[2023-01-01] MEDS ORDERED: LORazepam 2 MG/ML VIAL ONE (16:37)
[2023-01-01] MEDS ORDERED: POTASSIUM 25 MEQ EFFERV TAB ONE (16:37)
--- NOTE | 2023-01-01 17:04 | EDPHYS ---
Physician Documentation [facility] Name: Jennifer Victor Age: 52 yrs Sex: Female : 1970 Arrival Date: 01/01/2023 Time: 14:34 Bed 7 Private MD: ED Physician Gustavo Baca HPI: 01/01 16:59 This 52 yrs old Female presents to ER via Ambulatory with complaints of taras Doesn't Feel Right, Anxiety. 16:59 The patient presents to the emergency department with anxiety, depression, over unknown taras circumstances. Onset: The symptoms/episode began/occurred 2 day(s) ago. Past psychiatric history: Prior diagnosis: depression, Psychiatric medications include: adderal, hydrtoxyzine. Associated signs and symptoms: Pertinent positives; anxiety, depression. Severity of symptoms: At their worst the symptoms were mild in the emergency department the symptoms are unchanged. The patient has experienced similar episodes in the past, multiple times. Historical: - Allergies: 14:58 No Known Allergies; nj1 - PMHx: 14:58 scoliosis; Depressive disorder; Anxiety; nj1 - PSHx: 14:58 None; nj1 - Immunization history:: Client reports receiving the 1st dose of the Covid vaccine. - Social history:: Smoking status: Patient denies any tobacco usage or history of. ROS: 17:00 Constitutional: Negative for fever, chills, and weight loss, Eyes: Negative for injury, taras pain, redness, and discharge, ENT: Negative for injury, pain, and discharge, Neck: Negative for injury, pain, and swelling, Cardiovascular: Negative for chest pain, palpitations, and edema, Respiratory: Negative for shortness of breath, cough, wheezing, and pleuritic chest pain, Abdomen/GI: Negative for abdominal pain, nausea, vomiting, diarrhea, and constipation, Back: Negative for injury and pain, : Negative for injury, bleeding, discharge, and swelling, MS/Extremity: Negative for injury and deformity, Skin: Negative for injury, rash, and discoloration, Neuro: Negative for headache, weakness, numbness, tingling, and seizure, Allergy/Immunology: Negative for hives, rash, and allergies, Endocrine: Negative for neck swelling, polydipsia, polyuria, polyphagia, and marked weight changes, Hematologic/Lymphatic: Negative for swollen nodes, abnormal bleeding, and unusual bruising. 17:00 Psych: Positive for anxiety, depression. Exam: 17:00 Constitutional: This is a well developed, well nourished patient who is awake, alert, taras and in no acute distress. Head/Face: Normocephalic, atraumatic. Eyes: Pupils equal round and reactive to light, extra-ocular motions intact. Lids and lashes normal. Conjunctiva and sclera are non-icteric and not injected. Cornea within normal limits. Periorbital areas with no swelling, redness, or edema. ENT: Nares patent. No nasal discharge, no septal abnormalities noted. Tympanic membranes are normal and external auditory canals are clear. Oropharynx with no redness, swelling, or masses, exudates, or evidence of obstruction, uvula midline. Mucous membranes moist. Neck: Trachea midline, no thyromegaly or masses palpated, and no cervical lymphadenopathy. Supple, full range of motion without nuchal rigidity, or vertebral point tenderness. No Meningismus. Chest/axilla: Normal chest wall appearance and motion. Nontender with no deformity. No lesions are appreciated. Cardiovascular: Regular rate and rhythm with a normal S1 and S2. No gallops, murmurs, or rubs. Normal PMI, no JVD. No pulse deficits. Respiratory: Lungs have equal breath sounds bilaterally, clear to auscultation and percussion. No rales, rhonchi or wheezes noted. No increased work of breathing, no retractions or nasal flaring. Abdomen/GI: Soft, non-tender, with normal bowel sounds. No distension or tympany. No guarding or rebound. No evidence of tenderness throughout. Back: No spinal tenderness. No costovertebral tenderness. Full range of motion. Skin: Warm, dry with normal turgor. Normal color with no rashes, no lesions, and no evidence of cellulitis. MS/ Extremity: Pulses equal, no cyanosis. Neurovascular intact. Full, normal range of motion. Neuro: Awake and alert, GCS 15, oriented to person, place, time, and situation. Cranial nerves II-XII grossly intact. Motor strength 5/5 in all extremities. Sensory grossly intact. Cerebellar exam normal. Normal gait. 17:00 ECG was reviewed by the Attending Physician. 17:00 Psych: Behavior/mood is anxious, depressed, Affect is calm, Oriented to person, place, time, Patient has no thoughts/intents to harm self or others. Judgement / Insight is normal. Memory is normal. Delusions/hallucinations are not present. Vital Signs: 14:53 BP 123 / 78; Pulse 78; Resp 18; Temp 98.3; Pulse Ox 99% ; Weight 73.03 kg; Height 5 ft. ko1 0 in. ; 15:40 BP 118 / 78; Pulse 78; Resp 18; Pulse Ox 100% ; ko1 16:41 BP 124 / 82; Pulse 82; Resp 18; Pulse Ox 99% ; ko1 14:53 Body Mass Index 31.44 (73.03 kg, 152.4 cm) ko1 Markie Coma Score: 17:00 Eye Response: spontaneous(4). Motor Response: obeys commands(6). Verbal Response: taras oriented(5). Total: 15. MDM: 14:37 Patient medically screened. 01/01 14:38 Order name: Basic Metabolic Panel; Complete Time: 16:24 01/01 14:38 Order name: CBC with Diff; Complete Time: 16:24 01/01 14:38 Order name: LFT's; Complete Time: 16:24 01/01 14:38 Order name: Magnesium; Complete Time: 16:24 01/01 14:38 Order name: NT PRO-BNP; Complete Time: 16:24 01/01 14:38 Order name: PT-INR; Complete Time: 16:24 01/01 14:38 Order name: Troponin HS; Complete Time: 16:24 01/01 14:38 Order name: TSH; Complete Time: 16:24 01/01 14:39 Order name: Urinalysis w/ reflexes; Complete Time: 16:24 01/01 14:39 Order name: Lipase; Complete Time: 16:24 01/01 14:53 Order name: UDS; Complete Time: 16:24 01/01 14:38 Order name: XRAY Chest (1 view) 01/01 14:38 Order name: EKG; Complete Time: 14:39 01/01 14:38 Order name: Cardiac monitoring; Complete Time: 15:35 01/01 14:38 Order name: EKG - Nurse/Tech; Complete Time: 15:21 01/01 14:38 Order name: IV Saline Lock; Complete Time: 15:21 [facility] 01/01 14:38 Order name: Labs collected and sent; Complete Time: 15:21 [facility] 01/01 14:38 Order name: O2 Per Protocol; Complete Time: 15:35 [facility] 01/01 14:38 Order name: O2 Sat Monitoring; Complete Time: 15:35 [facility] EC:00 Rate is 91 beats/min. Rhythm is regular. QRS [place] is Normal. DC interval is normal. QRS taras interval is normal. QT interval is normal. No Q waves. T waves are Normal. No ST changes noted. Clinical impression: NSR w/ Non-specific ST/T Changes and No evidence of ischemia. Interpreted by me. Reviewed by me. Administered Medications: 15:37 Drug: NS 0.9% IV 500 ml Route: IV; Rate: bolus; Site: right antecubital; ko1 16:34 Drug: Potassium PO Effervescent Tablet 25 mEq Route: PO; ko1 16:34 Drug: Ativan IVP 1 mg Route: IVP; Site: right antecubital; ko1 Disposition Summary: 01/01/23 17:03 Discharge Ordered Location: Home taras Problem: new taras Symptoms: have improved taras Condition: Stable taras Diagnosis - Other depressive episodes taras - Anxiety disorder, unspecified taras - Hypokalemia taras Followup: taras - With: Private Physician - When: 2 - 3 days - Reason: Recheck today's complaints, Continuance of care, Re-evaluation by your physician Followup: taras - With: Gurpreet Castellanos MD - When: 2 - 3 days - Reason: Recheck today's complaints, Re-evaluation by your physician Discharge Instructions: - Discharge Summary Sheet taras - Panic Attack taras - Potassium Content of Foods taras - Panic Attack, Aers-ax-Alqb taras - Generalized Anxiety Disorder, Adult taras - Hypokalemia taras - Supporting Someone With Anxiety taras - Managing Anxiety, Adult taras Forms: - Medication Reconciliation Form taras - Thank You Letter taras - Antibiotic Education taras - Prescription Opioid Use taras Prescriptions: - Hydroxyzine HCl 25 mg Oral Tablet - take 1 tablet by ORAL route every 6 hours As needed; 30 tablet; Refills: 0, taras Product Selection Permitted Signatures: Dispatcher [employer] Gustavo Pelaez MD MD cha Oliver, Kathy RN RN ko1 Raghav, Ethel, RN RN nj1
--- NOTE | 2023-01-01 17:04 | ER ---
Nurse's Notes [facility] Name: Jennifer Victor Age: 52 yrs Sex: Female : 1970 Arrival Date: 01/01/2023 Time: 14:34 Bed 7 Private MD: Diagnosis: Other depressive episodes;Anxiety disorder, unspecified;Hypokalemia Presentation: 01/01 14:53 Chief complaint: Patient states: "I have been feeling real depressed a lot lately. I nj1 feel a lot of anxiety which is new for me. it is so bad I cannot sleep, I cannot function, I don't know what to do with myself" Anxiety for about a week, getting worse. Depression "I have been dealing with it for a long time". "The anxiety brought me here". Prescribed Adderall a month ago, stopped taking it two days ago to see if it would help her anxiety, which it did not. PCP is on vacation. Coronavirus screen: Vaccine status: Patient reports receiving the 1st dose of the Covid vaccine. Ebola Screen: Patient denies travel to an Ebola-affected area in the 21 days before illness onset. Initial Sepsis Screen: Does the patient meet any 2 criteria? No. Patient's initial sepsis screen is negative. Does the patient have a suspected source of infection? No. Patient's initial sepsis screen is negative. Risk Assessment: Do you want to hurt yourself or someone else? Patient reports no desire to harm self or others. Onset of symptoms was December 25, 2022. 14:53 Method Of Arrival: Ambulatory [facility] 14:53 Acuity: YAMINI 3 nj1 Historical: - Allergies: 14:58 No Known Allergies; nj1 - PMHx: 14:58 scoliosis; Depressive disorder; Anxiety; nj1 - PSHx: 14:58 None; nj1 - Immunization history:: Client reports receiving the 1st dose of the Covid vaccine. - Social history:: Smoking status: Patient denies any tobacco usage or history of. Screenin:[address] [facility] ED Fall Risk Assessment (Adult) History of falling in the last 3 months, ko1 including since admission No falls in past 3 months (0 pts) Confusion or Disorientation No (0 pts) Intoxicated or Sedated No (0 pts) Impaired Gait No (0 pts) Mobility Assist Device Used No (0 pt) Altered Elimination No (0 pt) Score/Fall Risk Level 0 - 2 = Low Risk Oriented to surroundings, Maintained a safe environment, Educated pt \\T\\ family on fall prevention, incl call for assistance when getting out of bed, Assessed \\T\\ reinforced patient's understanding of fall precautions, Provided non-skid footwear, Hourly rounding (assess needs \\T\\ fall precautionary measures) done, Used ambulatory aids as needed (educated on \\T\\ assisted with), Used gait belt as appropriate. Abuse screen: Denies threats or abuse. Denies injuries from another. Nutritional screening: No deficits noted. Tuberculosis screening: No symptoms or risk factors identified. Assessment: 15:40 General: Appears in no apparent distress. uncomfortable, Behavior is cooperative, ko1 appropriate for age, anxious. Pain: Denies pain. Neuro: No deficits noted. Cardiovascular: No deficits noted. Respiratory: No deficits noted. GI: No deficits noted. : No deficits noted. EENT: No deficits noted. Derm: No deficits noted. Musculoskeletal: No deficits noted. Vital Signs: 14:53 BP 123 / 78; Pulse 78; Resp 18; Temp 98.3; Pulse Ox 99% ; Weight 73.03 kg; Height 5 ft. ko1 0 in. ; 15:40 BP 118 / 78; Pulse 78; Resp 18; Pulse Ox 100% ; ko1 16:41 BP 124 / 82; Pulse 82; Resp 18; Pulse Ox 99% ; ko1 14:53 Body Mass Index 31.44 (73.03 kg, 152.4 cm) ko1 [place] Coma Score: 17:00 Eye Response: spontaneous(4). Motor Response: obeys commands(6). Verbal Response: taras oriented(5). Total: 15. ED Course: 14:36 Patient arrived in ED. am2 14:37 Gustavo Baca MD is Attending Physician. taras 14:58 Triage completed. nj1 14:59 Arm band placed on right wrist. nj1 15:21 UDS Sent. bc6 15:21 Lipase Sent. bc6 15:21 Urinalysis w/ reflexes Sent. bc6 15:21 TSH Sent. bc6 15:21 Basic Metabolic Panel Sent. bc6 15:21 CBC with Diff Sent. bc6 15:21 LFT's Sent. bc6 15:21 Magnesium Sent. bc6 15:21 NT PRO-BNP Sent. bc6 15:21 PT-INR Sent. bc6 15:21 Troponin HS Sent. bc6 15:22 Inserted saline lock: 20 gauge in right antecubital area, using aseptic technique. 6 15:34 Sharona Anguiano, RN is Primary Nurse. ko1 15:45 Patient has correct armband on for positive identification. Bed in low position. Call ko1 light in reach. Side rails up X 1. Client placed on continuous cardiac and pulse oximetry monitoring. NIBP monitoring applied. monitor tech on. Door closed. Noise minimized. Lights dimmed. Warm blanket given. 15:45 No provider procedures requiring assistance completed. ko1 16:08 XRAY Chest (1 view) In Process Unspecified. EDMI 17:02 Gurpreet Castellanos MD is Referral Physician. [facility] 17:08 IV discontinued, intact, bleeding controlled, No redness/swelling at site. Pressure ko1 dressing applied. Administered Medications: 15:37 Drug: NS 0.9% IV 500 ml Route: IV; Rate: bolus; Site: right antecubital; ko1 16:34 Drug: Potassium PO Effervescent Tablet 25 mEq Route: PO; ko1 16:34 Drug: Ativan IVP 1 mg Route: IVP; Site: right antecubital; ko1 Medication: 15:45 VIS not applicable for this client. ko1 Outcome: 17:03 Discharge ordered by . [facility] 17:08 Discharged to home ambulatory. ko1 17:08 Condition: stable 17:08 Discharge instructions given to patient, family, Instructed on discharge instructions, follow up and referral plans. medication usage, Demonstrated understanding of instructions, follow-up care, medications, Prescriptions given X 1. 17:18 Patient left the ED. ko1 Signatures: Dispatcher [employer] EDMI Gustavo Baca MD MD cha Moreno, Amanda am2 Sharona Anguiano, RN RN ko1 Daniella Paredes 6 Ethel Avilez RN RN nj1 Corrections: (The following items were deleted from the chart) 15:44 14:53 BP 123 / 78; Pulse 18bpm; Resp 18bpm; Pulse Ox 99%; Temp 98.3F; 73.03 kg; Height ko1 5 ft. 0 in.; BMI: 31.4; nj1
[2023-01-01 17:46] VITALS: TEMP 98.3
[2023-01-01 17:48] VITALS: BP 124/82; O2SAT 99
--- NOTE | 2023-01-01 18:09 | RAD REPORT ---
EXAM DESCRIPTION: Fabiola Single View01/01/2023 4:06 pm CLINICAL HISTORY: COUGH COMPARISON: Head C Spine Cap W Con dated 09/20/2016 TECHNIQUE: Portable AP view of the chest. FINDINGS: The lungs appeared clear. Pronounced dextroconvex scoliosis at the thoracolumbar junction limits evaluation, with blurring of the right heart margins. No pneumothorax or effusion. The cardiom ediastinal contours are unremarkable. IMPRESSION: No acute cardiopulmonary process.
--- NOTE | 2023-01-02 07:27 | EKG ---
Test Date: 2023-01-01 Test Time: 15:27:06 Back End Engineer: CARMEN MEASUREMENT RESULTS: Intervals: Rate: 91 WV: 150 QRSD: 76 QT: 366 QTc: 450 [employer]: P: 58 WV: 150 QRS: -2 T: 49 INTERPRETIVE STATEMENTS: Normal sinus rhythm Normal ECG No previous ECG available for comparison Electronically Signed On 01-02-23 07:25:19 CDT by Markell Priest
== END 2023-01-01 17:18 | disposition home or self-care (01) ==
LOC: ER 14:34
DX: F32.89 Other specified depressive episodes (principal); F41.9 Anxiety disorder, unspecified; E87.6 Hypokalemia
CPT/HCPCS: 93005; 85025; 81001; 80048; 36415; 83735; 85610; 80076; 84443; 84484; 83690; 83880; 80307; 71045; 96374; 99285; J7040

== ENCOUNTER 2023-01-25 20:02 | Inpatient (IN) | payer OTHER ==
[2023-01-26 15:13] VITALS: TEMP 97.2
[2023-01-26 15:15] VITALS: BMI 30.9
--- OUTSIDE RECORDS SUMMARY | 2023-01-26 15:48 | XMS REPORT | Continuity of Care Document ---
:1970 Author Organization [facility] t Address [address] [place] [address] Care Team Providers Name Role Phone Star Kellogg Primary Care Physician [phone] FELIPE HERZOG Attending Clinician Unavailable Felipe Herzog MD Attending Clinician WEN CAPELLAN Attending Clinician Unavailable Doctor Unassigned, [place] Attending Clinician Unavailable NADEEM SALMERON Attending Clinician Unavailable Georgina Molina PT Attending Clinician Unavailable Nadeem Salmeron MD Attending Clinician Lab, [facility] Attending Clinician Unavailable Calvin Bueno MD Attending [...] Unavailable Bettie Pang Attending Clinician Unavailable Testing, [facility] Pulmonary Function Attending Clinician Unavaila ble Fellow, Pulmonary Attending Clinician Unavailable Elvia MEJIA, [place] Attending Clinician [phone] SUN MACK Attending Clinician Unavailable PAGE CAPELLAN Attending Clinician Unavailable Junior Thayer Attending Clinician JUNIOR LARKIN Attending Clinician Unavailable mUu Attending Clinician Unavailable FELIPE HERZOG Admitting Clinician Unavailable Felipe Herzog MD Admitting Clinician [facility] Admitting Clinician Unavailable Payers Payer Name Policy Type Policy Number Effective Date Expiration Date [place] MEDICARE PART A \\T\\ [id number] 2021 B 00:00:00 DARS DISABILITY [id number] DETERMINATION SVCS 00:00:00 Problems Condition Condition Condition Status Onset Resolution Last Treating Co mments Source Name Details Category Date Date Treatment Clinician Date Obesity Obesity Disease Active Univers (BMI (BMI 6-11 ity of 30-39.9) 30-39.9) 00:00: [place] 00 Medical Branch Attention Attention Disease Active Uni vers deficit deficit 4-11 ity of hyperactiv hyperactiv [place] it[place] 00 Medical disorder disorder Branch (ADHD), (ADHD), predominan predominan tly tly inattentiv inattentiv e type e type Severe Severe Disease Active Univers bipolar I bipolar I 3-17 ity of disorder disorder 00:00: [place] with with 00 Medical depression depression Br anch Degenerati Degenerati Disease Active U nivers ve ve 3-09 ity of scoliosis sc[place]osis [place] in [place] in adult 00 Medica l patient patient Branch Essential Essential Disease Active Uni vers (primary) (primary) 1-09 ity of hypertensi hypertensi [place] on Medical [place] Major Major Disease Active 2020-08 Univers depression depression 2-13 it y of single single 00:00: [place] episode, episode, 00 Medica l in partial in partial Br anch remission remission No known No known Disease Unive rs active active ity of problems problems [place] [facility] Allergies, Adverse Reactions, Alerts Allergy Allergy Status Severity Reaction(s) Onset Inactive Treating Comm ents Source Name Type Date Date Clinician NO KNOWN Drug Active Univers ALLERGIE Class ity of S [place] [facility] Social History Social Habit Start Date Stop Date Quantity Comments Source History SDOH University o f Alcohol Std Drinks [place] [facility] History SDOH University o f Alcohol Binge [place] [facility] History SDOH Social Unive rsity of Connections Get [place] Med ical Together Branch History SDOH Social Unive rsity of Connections Denominational [place] [facility] History SDOH Social Unive rsity of Connections [place] [facility] Membership Branch History SDOH Social Unive rsity of Connections [place] [facility] Meetings Branch History of tobacco Cigarette Smoker University of use [place] [facility] History SDOH 2023-01-18 2023-01-18 1 University o f Alcohol Frequency 00:00:00 00:00:00 [place] M edical Branch History SDOH Social 2023-01-18 2023-01-18 3 Unive rsity of Connections Phone 00:00:00 00:00:00 [place] M edical Branch History SDOH Social 2023-01-18 2023-01-18 3 Unive rsity of Connections Living 00:00:00 00:00:00 [place] [facility] History SDOH 2023-01-18 2023-01-18 3 University o f Physical Activity 00:00:00 00:00:00 [place] M edical DPW Branch History SDOH 2023-01-18 2023-01-18 3 University o f Physical Activity 00:00:00 00:00:00 [place] M edical MPS Branch History SDOH 2023-01-18 2023-01-18 5 University o f Financial 00:00:00 00:00:00 [place] [facility] History SDOH Food 2023-01-18 2023-01-18 1 Univers ity of Worry 00:00:00 00:00:00 [place] [facility] History SDOH Food 2023-01-18 2023-01-18 1 Univers ity of Scarcity 00:00:00 00:00:00 [place] [facility] History SDOH 2023-01-18 2023-01-18 2 University o f Transport Med 00:00:00 00:00:00 [place] Medic al Branch History SDOH 2023-01-18 2023-01-18 2 University o f Transport Non-Med 00:00:00 00:00:00 [place] M edical Branch History SDOH 2023-01-18 2023-01-18 2 University o f Housing Unable to 00:00:00 00:00:00 [place] M edical Pay Branch History SDOH 2023-01-18 2023-01-18 1 University o f Housing Places 00:00:00 00:00:00 [facility] xiomy Lived Branch History SDOH 2023-01-18 2023-01-18 2 University o f Housing Homeless 00:00:00 00:00:00 [facility] dical Last Year Branch Exposure to 2022-10-15 2022-10-25 Not sure University SARS-CoV-2 (event) 00:00:00 11:09:00 [facility] Tobacco use and 2022-02-23 2022-02-23 Smokeless Universit y of exposure 00:00:00 00:00:00 tobacco non-user [facility] dical [place] Sex Assigned At [birth year] Universit y of 00:00:00 00:00:00 [facility] Smoking Status Start Date Stop Date Source Ex-smoker 2022-02-23 00:00:00 2022-02-23 00:00:00 Universi ty [facility] Medications Ordered Filled Start Stop Current Ordering Indication Dosage Frequency Signature Comments Components Source Medication Medication Date Date Medication? Clinician (SIG) Name Name oxyCODONE-a Yes 1{tbl} 1 tablet, Univers cetaminophe -21 Oral, ity of n 17:15: Q6HPRN, [place] (PERCOCET) 00 Starting Medic al 5-325 mg on Tue per tablet 01/26/23 at 1 tablet 1215, Until Discontinu ed, Routine, Pain (scale 4-6) lisinopriL No 20mg Take 20 mg Univers 20 mg -01-26 by mouth. ity of tablet 07:32: 00:00 [place] 14 :00 Medical Branch gabapentin Yes 800mg 800 mg, Uni vers (NEURONTIN) 6-21 Oral, QHS, it y of tablet 800 02:00: [place] dose [place] mg 00 on Tue Medical 01/25/23 at Branch 2100, Until Discontinu ed, Routine cyclobenzap Yes 10mg Take 1 Univ ers rine 10 mg - tablet by ity of tablet 00:00: mouth [place] 00 every 8 Medical (eight) Branch hours. gabapentin 2023-0 Yes 400mg Take 1 Univ ers 400 mg 6-21 capsule by ity of capsule 00:00: mouth 2 [place] 00 (two) Medical times Branch daily before breakfast and dinner. gabapentin 2022-0 Yes 800mg Take 1 Univ ers 800 mg 6-21 tablet by ity of tablet 00:00: mouth at [place] 00 bedtime. Medical Branch oxyCODONE-a 2022-0 Yes 4647 1{tbl} Take 1 Un mercedes cetaminophe 6-21 tablet by ity of n 5-325 mg 00:00: mouth [place] per tablet 00 every 6 Medica l (six) Branch hours as needed for Pain (scale 4-6). Indication s: acute pain oxyCODONE 2022-0 Yes 4647 10mg Take 1 Univer s CR 10 mg 12 6-21 tablet by ity of hr tablet 00:00: mouth [place] 00 every 12 Medical (twelve) Branch hours. Indication s: acute pain oxyCODONE-a 2022-0 2022- No 4647 1{tbl} Take 1 U nivers cetaminophe 6-21 06-21 tablet by it y of n 5-325 mg 00:00: 00:00 mouth [place] per tablet 00 :00 every 4 Medica l (four) Branch hours as needed for Pain (scale 4-6). Indication s: acute pain gabapentin 2022-0 Yes 400mg 400 mg, Uni vers (NEURONTIN) 6-20 Oral, ity of capsule 400 21:30: BIDAC, [place] mg 00 First dose Medical (after Branch last modificati on) on Tue01/25/23 at 1630, Until Discontinu ed, Routine glycerin/mi 2022-0 Yes 225mL 225 mL, Un merceeds neral oil 6-20 Rectal, ity of (AGLO 17:24: QHSPRN, [place] ENEMA) 25 Starting Medical (COMPOUNDED on Tue ) Enem 225 01/25/23 at mL 1224, Until Discontinu ed, Routine, Constipati on unresolved by oral medication s gabapentin 2022-0 2022- No 400mg 400 mg, Un mercedes (NEURONTIN) 6-19 06-20 Oral, TID, i ty of capsule 400 01:45: 19:03 First dose [place] mg 00 :31 (after Medical last Branch modificati on) on [place] 01/23/23 at 2045, Until Discontinu ed, Routine gabapentin 2022-0 2022- No 300mg 300 mg, Un mercedes (NEURONTIN) 01-23 Oral, TID, i ty of capsule 300 14:45: 01:38 First dose [place] mg 00 :53 on [place] Medical 01/23/23 at Branch 0945, Until Discontinu ed, Routine simethicone 2022-0 Yes 80mg 80 mg, Univ ers (GAS RELIEF 17 Oral, ity of (SIMETHICON 18:00: PC+HS, [place] E)) 00 First dose Medical chewable on Sat Branch tablet 80 01/22/23 at mg 1300, Until Discontinu ed, Routine sodium 2022-0 2022- No 1{enema 1 Enema, Uni vers phosphates 01-21 } Rectal, ity o f (READY-TO-U 16:45: 03:12 ONCE, 1 [place] SE ENEMA) 00 :00 dose, On Medica l -Tue Branch gram/118 mL 01/21/23 at enema 1 1145, Enema Routine magnesium 2022-0 Yes 15mL 15 mL, Univer s hydroxide 6-15 Oral, ity of (MILK OF 18:45: DAILY, [place] MAGNESIA) 00 First dose Medi xiomy 400 mg/5 mL (after Branch suspension last 15 mL modificati on) on [facility] 01/20/23 at 1345, Until Discontinu ed, Routine ferrous 3-0 Yes 325mg 325 mg, Univer s sulfate -15 Oral, Q ity of tablet 325 18:28: [place]DAY, [place] mg 40 First dose Medical on [facility] Branch 01/20/23 at 1330, Until Discontinu ed, Routine HYDROmorpho 2022-0 2022- No .5mg 0.5 mg, Un mercedes ne 01-19 Slow IV ity of (DILAUDID) 16:58: 13:47 Push, [place] injection 31 :46 Q4HPRN, Medical 0.5 mg Starting Branch on Tue01/19/23 at 1158, Until Tue01/21/23 at 0847, Routine, Pain (scale 7-10)
U se approved by (Faculty): Pravin GRECO, ADULT/PEDI SPINE SURGERY acetaminoph 0 Yes 500mg 500 mg, Un mercedes en 01-19 Oral, ity of (TYLENOL) 15:52: Q8HPRN, [place] tablet 500 07 Starting Medic al mg on Wed Branch 01/19/23 at 1052, Until Discontinu ed, Routine, Pain (scale 1-3) oxyCODONE-a 2022- No 1{tbl} 1 tablet, [facility] [place] [facility] cetaminophe 01-19 Oral, ity of n 15:51: 17:02 Q4HPRN, [place] (PERCOCET) 55 :14 Starting Medic al 5-325 mg on Tue Branch per tablet 01/19/23 at 1 tablet 1051, Until Tue01/26/23 at 1202, Routine, Pain (scale 4-6) sennosides- 0 Yes 1{tbl} 1 tablet, [facility] [place] [facility] docusate 01-19 Oral, ity of sodium 14:00: DAILY, [place] (SENOKOT-S) 00 First dose Me dical 8.6-50 mg on Tue Branch per tablet 01/19/23 at 1 tablet 0900, Until Discontinu ed, Routine sennosides- 2022-0 Yes 1{tbl} 1 tablet, [facility] [place] [facility] docusate 01-19 Oral, ity of sodium 14:00: DAILY, [place] (SENOKOT-S) 00 First dose Me dical 8.6-50 mg on Wed Branch per tablet 01/19/23 at 1 tablet 0900, Until Discontinu ed, Routine HYDROmorpho 2022- No .2mg 0.2 mg, Un mercedes ne 01-19 Slow IV ity of (DILAUDID) 13:48: 16:58 Push, [place] injection 46 :42 Q4HPRN, Medical 0.2 mg Starting Branch on Tue01/19/23 at 0848, Until Tue01/19/23 at 1158, Routine, Pain (scale 7-10)
U se approved by (Faculty): Pravin GRECO, ADULT/PEDI SPINE SURGERY cyclobenzap Yes 10mg 10 mg, Univ ers rine 6- Oral, Q8H, ity of (FLEXERIL) 19:00: First dose [place] tablet 10 00 (after Medical mg last Branch modificati on) on Tue01/18/23 at 1400, Until Discontinu ed, Routine cyclobenzap Yes 10mg 10 mg, Univ ers rine 01-18 Oral, Q8H, ity of (FLEXERIL) 19:00: First dose [place] tablet 10 00 (after Medical mg last Branch modificati on) on Tue01/18/23 at 1400, Until Discontinu ed, Routine oxyCODONE-a Yes 2{tbl} 2 tablet, Univers cetaminophe 01-18 Oral, Q6H, it y of n 18:15: First dose [place] (PERCOCET) 00 (after Medical 5-325 mg last Branch per tablet modificati 2 tablet on) on Tue01/18/23 at 1315, Until Discontinu ed oxyCODONE-a 2022- No 2{tbl} 2 tablet, Univers cetaminophe 01-18 Oral, Q6H, i ty of n 18:15: 15:52 First dose [place] (PERCOCET) 00 :20 (after Medical 5-325 mg last Branch per tablet modificati 2 tablet on) on Tue01/18/23 at 1315, Until Discontinu ed acetaminoph 2022- No 650mg 650 mg, U nivers en 01-18 Oral, Q6H, ity of (TYLENOL) 17:00: 17:02 First dose [place] tablet 650 00 :04 on Tue Medical mg 01/18/23 at Branch 1200, Until Discontinu ed, Routine magnesium 2022- No 2g 2 g, IV Univ ers sulfate in 01-18 Piggyback, it y of water 2 16:15: 17:49 Administer [place] as gram/50 mL 00 :00 over 60 Medica l (4 %) Minutes, Branch infusion 2 ONCE, 1 g dose, On Tue01/18/23 at 1115, Routine vancomycin 2022- No 1000mg 1,000 mg, Univers (VANCOCIN) 01-18 IV ity of 1,000 mg in 15:30: 16:47 Piggyback, [place] NaCl 0.9% 00 :00 Q12H ABX, Medic al (NS) 250 mL 1 dose, Branc h VIAL-glass mold repairer dose IV (after piggyback last modificati on) on [facility] 01/18/23 at 1030, Administer over 60 Minutes, 250 mL
Reas on for Anti-Infec tive: Surgical Prophylaxi s
Vilchis rgical Prophylaxi s: Orthopaedi c
Durat ion of therapy: within 24 hours of surgery polyethylen 0 Yes 17g 17 g, Unive rs e glycol 6- Oral, ity of 3350 powder 15:15: DAILY, [place] 17 g 00 First dose Medical on [facility] 01/18/23 at 1015, Until Discontinu ed, Routine polyethylen Yes 17g 17 g, Unive rs e glycol - Oral, ity of 3350 powder 15:15: DAILY, [place] 17 g 00 First dose Medical on [facility] 01/18/23 at 1015, Until Discontinu ed, Routine ARIPiprazol Yes 15mg 15 mg, Univ ers e (ABILIFY) 01-18 Oral, ity of tablet 15 14:00: DAILY, [place] mg 00 First dose Medical on [facility] 01/18/23 at 0900, Until Discontinu ed, Routine SERTraline 0 Yes 50mg 50 mg, Unive rs (ZOLOFT) 01-18 Oral, ity of tablet 50 14:00: DAILY, [place] mg 00 First dose Medical on [facility] 01/18/23 at 0900, Until Discontinu ed, Routine SERTraline 0 Yes 50mg 50 mg, Unive rs (ZOLOFT) 01-18 Oral, ity of tablet 50 14:00: DAILY, [place] mg 00 First dose Medical on [facility] 01/18/23 at 0900, Until Discontinu ed, Routine propofoL IV 0 2022- No 5ug/kg/ 5-50 Un mercedes infusion 01-18 06-13 min mcg/kg/min ity of 03:50: 16:02 ?73.2 kg [place] 11 :50 (2.196-21. Medical 96 mL/hr, Branch rounded to 2.2-21.96 mL/hr), IV Infusion, TITRATE, Sedation-R ASS score (0 to -1), Starting on Tue01/17/23 at 2250
In itiate infusion at 5 mcg/kg/min and titrate by 5 mcg/kg/min every 30 seconds to 10 minutes to goal sedation score. Maximum dose = 50 mcg/kg/min . If goal not maintained at maximum allowed dose, contact prescriber . &nbs p;Tubing and unused portions of vials should be discarded after 12 hours.
FENTanyl PF Yes 50ug 50 mcg, Uni vers (SUBLIMAZE 01-18 Slow IV ity of (PF)) 02:50: Push, [place] injection 44 Q2HPRN, 5 Medic al 50 mcg doses, Branch Starting on Tue01/17/23 at 2150, Until Discontinu ed, Routine, Pain (scale 7-10) FENTanyl PF 2022- No 50ug 50 mcg, Un mercedes (SUBLIMAZE 01-18 Slow IV ity o f (PF)) 02:50: 02:50 [place], [place] injection 44 :00 Q2HPRN, 5 Medic al 50 mcg doses, Branch Starting on Tue01/17/23 at 2150, Until Tue01/18/23 at 2150, Routine, Pain (scale 7-10) BUPivacaine 2022- No PRN, Unive rs liposome 01-18 Starting ity of (PF) 01:34: 13:52 on Tue [place] (EXPAREL 00 :34 01/17/23 at Medic al (PF)) 1.3 % 2033, Branch (13.3 Intra-op mg/mL) 266 mg, NaCl 0.9% (NS) 20 mL vancomycin 2022- No PRN, Univer s (VANCOCIN) 01-18 Starting ity of injection 01:33: 13:52 on Tue [place] 00 :34 01/17/23 at Medical 2032, Branch Until Tue01/18/23 at 0852, CHASITY, Intra-op topiramate Yes 50mg 50 mg, Unive rs (TOPAMAX) 01-18 Oral, BID, ity of tablet 50 01:00: [place] dose [place] 00 on [facility] 01/17/23 at [place] 2000, Until Discontinu ed, Routine
solar crew member approving Restricted medication : BERNARDO TRENT topiramate 2022- No 50mg 50 mg, Univ ers (TOPAMAX) 01-18 Oral, BID, ity of tablet 50 01:00: 14:55 First dose [place] mg 00 :18 on [facility] 01/17/23 at [place] 1999, Until Discontinu ed, Routine
solar crew member approving Restricted medication : BERNARDO TRENT lidocaine-e 2022- No PRN, Unive rs pinephrine 01-17 Starting ity of (XYLOCAINE 14:54: 13:52 on [facility] [place] WITH 00 :34 01/17/23 at [facility] EPINEPHRINE [address]954[facility] ) 1 Until Tue %-1:100,000 01/18/23 at injection 0852, Routine, Intra-op heparin 2022- No PRN, Univers 10,000 01-17 Starting ity of units in NS 14:52: 13:52 on [facility] [place] as 1000 mL for 00 :34 01/17/23 at Il dical vascular [id number] Intra-op pantoprazol 0 Yes 40mg 40 mg, Univ ers e 01-17 Oral, ity of (PROTONIX) 14:00: DAILY, [place] EC tablet 00 First dose Medi xiomy 40 mg on [facility] 01/17/23 at 0900, Until Discontinu ed, Routine
Indicatio n for use: None of the above lisinopriL Yes 10mg 10 mg, Unive rs (PRINIVIL,Z 01-17 Oral, ity of ESTRIL) 14:00: DAILY, [place] tablet 10 00 First dose Medi xiomy mg on [facility] 01/17/23 at 0900, Until Discontinu ed, Routine pantoprazol 2022- No 40mg 40 mg, Uni vers e 01-17 Oral, ity of (PROTONIX) 14:00: 15:00 DAILY, [place] EC tablet 00 :41 First dose Medi xiomy 40 mg on [facility] 01/17/23 at 0900, Until Discontinu ed, Routine
Indicatio n for use: None of the above naloxone 2022-0 Yes .1mg 0.1 mg, Univer s (NARCAN) -12 Intravenou ity o f injection 12:45: s, PRN - [place] 0.1 mg 04 SEE Medical INSTRUCTIO [facility], Starting on Tue01/17/23 at 0745, Until Discontinu ed, CHASITY, Sedation/R espiratory Depression magnesium 3-0 Yes 15mL 15 mL, Univer s hydroxide 01-17 Oral, ity of (MILK OF 12:45: QIDPRN, [place] MAGNESIA) 04 Starting Medica l 400 mg/5 mL on Tue suspension 01/17/23 at 15 mL 0745, Until Discontinu ed, Routine, Constipati on ondansetron 2022-0 Yes 4mg 4 mg, Slow Univers (ZOFRAN 6-12 IV Push, ity of (PF)) 12:45: Q6HPRN, [place] injection 4 04 Starting Medi xiomy mg on Tue Branch 01/17/23 at 0745, Until Discontinu ed, Routine, Nausea and Vomiting (N/V) naloxone 2022-0 Yes .1mg 0.1 mg, Univer s (NARCAN) 01-17 Intravenou ity o f injection 12:45: s, PRN - [place] 0.1 mg 04 SEE Medical INSTRUCTIO [facility], Starting on Tue01/17/23 at 0745, Until Discontinu ed, CHASITY, Sedation/R espiratory Depression ondansetron 2022-0 Yes 4mg 4 mg, Slow Univers (ZOFRAN 6-12 IV Push, ity of (PF)) 12:45: Q6HPRN, [place] injection 4 04 Starting Medi xiomy mg on Tue Branch 01/17/23 at 0745, Until Discontinu ed, Routine, Nausea and Vomiting (N/V) HYDROmorpho 2022-0 2022- Yes .2mg 0.2 mg, Un mercedes ne 01-17-14 Slow IV ity of (DILAUDID) 12:45: 12:44 Push, [place] injection 04 :04 Q4HPRN, Medical 0.2 mg Starting Branch on Tue01/17/23 at 0745, Until Tue01/19/23 at 0744, Routine, Pain (scale 7-10)
U se approved by (Faculty): Pravin GRECO, ADULT/PEDI SPINE SURGERY HYDROmorpho 2022- No .2mg 0.2 mg, Un mercedes ne 01-17 Slow IV ity of (DILAUDID) 12:45: 12:44 Push, [place] injection 04 :04 Q4HPRN, Medical 0.2 mg Starting Branch on Tue01/17/23 at 0745, Until Tue01/19/23 at 0744, Routine, Pain (scale 7-10)
U se approved by (Faculty): Pravin GRECO, ADULT/PEDI SPINE SURGERY HYDROcodone 2022- No 4647 1{tbl} 1 tablet, Univers -acetaminop 01-17 Oral, ity of hen (NORCO) 12:45: 17:05 Q4HPRN, [place] 10-325 mg 04 :48 Starting Medica l tablet 1 on Tue Branch tablet 01/17/23 at 0745, Until Tue01/18/23 at 1205, Routine, Pain (scale 4-6) cyclobenzap 2022- No 10mg 10 mg, Uni vers rine 01-17 Oral, ity of (FLEXERIL) 12:45: 18:12 Q8HPRN, [place] tablet 10 04 :00 Starting Medica l mg on Tue Branch 01/17/23 at 0745, Until Tue01/18/23 at 1312, Routine, Muscle Spasms acetaminoph 2022- No 1000mg 1,000 mg, Univers en 01-17 Oral, ity of (TYLENOL) 10:30: 10:37 ONCE, 1 [place] tablet 00 :00 dose, On Medical 1,000 mg Tue Branch 01/17/23 at 0530, Routine, DSU Pre-op lisinopriL Yes 20mg Take 20 mg U nivers 20 mg 01-17 by mouth. ity of tablet 07:47: [place] 38 [facility] Branch dextroamphe 2022-0 Yes 10mg Take 1 Univ ers tamine-amph 5-01 tablet by ity of etamine 10 00:00: mouth in [place] mg tablet 00 the Medical morning. Branch dextroamphe 0 Yes 10mg Take 1 Univ ers tamine-amph 5-01 tablet by ity of etamine 10 00:00: mouth in [place] mg tablet 00 the Medical morning. Branch ARIPiprazol 2023- Yes 15mg Take 1 Uni vers e 15 mg 4-11 04-11 tablet by ity of tablet 00:00: 04:59 mouth. [place] 00 :00 Medical Branch ARIPiprazol 0 2023- Yes 15mg Take 1 Uni vers e 15 mg 4-11 04-11 tablet by ity of tablet 00:00: 04:59 mouth. [place] 00 :00 Medical Branch ergocalcife 3-0 Yes [id number] Take 1 Univers rol, 3-16 capsule by ity of vitamin d2, 00:00: mouth [place] 1,250 mcg 00 weekly. Medical (50,000 Branch unit) capsule ergocalcife 2023-0 Yes [id number] Take 1 Univers rol, 3-16 capsule by ity of vitamin d2, 00:00: mouth [place] 1,250 mcg 00 weekly. Medical (50,000 Branch unit) capsule ergocalcife 2023-0 Yes [id number] Take 1 Univers rol, 3-16 capsule by ity of vitamin d2, 00:00: mouth [place] 1,250 mcg 00 weekly. Medical (50,000 Branch unit) capsule ergocalcife 2023-0 Yes [id number] Take 1 Univers rol, 3-16 capsule by ity of vitamin d2, 00:00: mouth [place] 1,250 mcg 00 weekly. Medical (50,000 Branch unit) capsule ergocalcife 2023-0 Yes [id number] Take 1 Univers rol, 3-16 capsule by ity of vitamin d2, 00:00: mouth [place] 1,250 mcg 00 weekly. Medical (50,000 Branch unit) capsule ergocalcife 2023-0 Yes [id number] Take 1 Univers rol, 3-16 capsule by ity of vitamin d2, 00:00: mouth [place] 1,250 mcg 00 weekly. Medical (50,000 Branch unit) capsule ergocalcife 2023-0 Yes [id number] Take 1 Univers rol, 3-16 capsule by ity of vitamin d2, 00:00: mouth [place] 1,250 mcg 00 weekly. Medical (50,000 Branch unit) capsule ergocalcife 2023-0 Yes [id number] Take 1 Univers rol, 3-16 capsule by ity of vitamin d2, 00:00: mouth [place] 1,250 mcg 00 weekly. Medical (50,000 Branch unit) capsule ergocalcife 2023-0 Yes [id number] Take 1 Univers rol, 3-16 capsule by ity of vitamin d2, 00:00: mouth [place] 1,250 mcg 00 weekly. Medical (50,000 Branch unit) capsule ergocalcife 2023-0 Yes [id number] Take 1 Univers rol, 3-16 capsule by ity of vitamin d2, 00:00: mouth [place] 1,250 mcg 00 weekly. Medical (50,000 Branch unit) capsule ergocalcife 2023-0 Yes [id number] Take 1 Univers rol, 3-16 capsule by ity of vitamin d2, 00:00: mouth [place] 1,250 mcg 00 weekly. Medical (50,000 Branch unit) capsule ergocalcife 2023-0 Yes [id number] Take 1 Univers rol, 3-16 capsule by ity of vitamin d2, 00:00: mouth [place] 1,250 mcg 00 weekly. Medical (50,000 Branch unit) capsule ergocalcife 2023-0 Yes [id number] Take 1 Univers rol, 3-16 capsule by ity of vitamin d2, 00:00: mouth [place] 1,250 mcg 00 weekly. Medical (50,000 Branch unit) capsule ergocalcife 2023-0 Yes [id number] Take 1 Univers rol, 3-16 capsule by ity of vitamin d2, 00:00: mouth [place] 1,250 mcg 00 weekly. Medical (50,000 Branch unit) capsule ergocalcife 2023-0 Yes [id number] Take 1 Univers rol, 3-16 capsule by ity of vitamin d2, 00:00: mouth [place] 1,250 mcg 00 weekly. Medical (50,000 Branch unit) capsule ergocalcife 2023-0 Yes [id number] Take 1 Univers rol, 3-16 capsule by ity of vitamin d2, 00:00: mouth [place] 1,250 mcg 00 weekly. Medical (50,000 Branch unit) capsule ergocalcife 2023-0 Yes [id number] Take 1 Univers rol, 3-16 capsule by ity of vitamin d2, 00:00: mouth [place] 1,250 mcg 00 weekly. Medical (50,000 Branch unit) capsule ergocalcife 2023-0 Yes [id number] Take 1 Univers rol, 3-16 capsule by ity of vitamin d2, 00:00: mouth [place] 1,250 mcg 00 weekly. Medical (50,000 Branch unit) capsule ergocalcife 2023-0 Yes [id number] Take 1 Univers rol, 3-16 capsule by ity of vitamin d2, 00:00: mouth [place] 1,250 mcg 00 weekly. Medical (50,000 Branch unit) capsule ergocalcife 2023-0 Yes [id number] Take 1 Univers rol, 3-16 capsule by ity of vitamin d2, 00:00: mouth [place] 1,250 mcg 00 weekly. Medical (50,000 Branch unit) capsule topiramate 2023-0 2024- No 50mg Take 1 Univ ers 50 mg 2-10 -11 tablet by ity of tablet 00:00: 05:59 mouth. [place] 00 :00 Medical Branch topiramate 2023-0 2024- No 50mg Take 1 Univ ers 50 mg 2-10 -11 tablet by ity of tablet 00:00: 05:59 mouth. [place] 00 :00 [facility] Branch lisinopriL 2021-08 Yes 20mg Take 20 mg U nivers 20 mg 1-21 by mouth. ity of tablet 06:17: [address] Branch lisinopriL 2021-08 Yes 20mg Take 20 mg U nivers 20 mg 1-21 by mouth. ity of tablet 06:17: [address] Branch lisinopriL 2021-08 Yes 20mg Take 20 mg U nivers 20 mg 1-21 by mouth. ity of tablet 06:17: [address] Branch lisinopriL 2021-08 Yes 20mg Take 20 mg U nivers 20 mg 1-21 by mouth. ity of tablet 06:17: [address] lisinopriL 2021-08 Yes 20mg Take 20 mg U nivers 20 mg 1-21 by mouth. ity of tablet 06:17: [address] Branch lisinopriL 2021-08 Yes 20mg Take 20 mg U nivers 20 mg 1-21 by mouth. ity of tablet 06:17: [address] lisinopriL 2021-08 Yes 20mg Take 20 mg U nivers 20 mg 1-21 by mouth. ity of tablet 06:17: [address] lisinopriL 2021-08 Yes 20mg Take 20 mg U nivers 20 mg 1-21 by mouth. ity of tablet 06:17: [address] lisinopriL 2021-08 Yes 20mg Take 20 mg U nivers 20 mg 1-21 by mouth. ity of tablet 06:17: [address] lisinopriL 2021-08 Yes 20mg Take 20 mg U nivers 20 mg 1-21 by mouth. ity of tablet 06:17: [address] lisinopriL 2021-08 Yes 20mg Take 20 mg U nivers 20 mg 1-21 by mouth. ity of tablet 06:17: [address] lisinopriL 2021-08 Yes 20mg Take 20 mg U nivers 20 mg 1-21 by mouth. ity of tablet 06:17: [address] lisinopriL 2021-08 Yes 20mg Take 20 mg U nivers 20 mg 1-21 by mouth. ity of tablet 06:17: [address] lisinopriL 2021-08 Yes 20mg Take 20 mg U nivers 20 mg 1-21 by mouth. ity of tablet 06:17: [address] lisinopriL 2021-08 Yes 20mg Take 20 mg U nivers 20 mg 1-21 by mouth. ity of tablet 06:17: [address] lisinopriL 2021-08 Yes 20mg Take 20 mg U nivers 20 mg 1-21 by mouth. ity of tablet 06:17: [address] lisinopriL 2021-08 Yes 20mg Take 20 mg U nivers 20 mg 1-21 by mouth. ity of tablet 06:17: [address] lisinopriL 2021-08 Yes 20mg Take 20 mg U nivers 20 mg 1-21 by mouth. ity of tablet 06:17: [address] lisinopriL 2021-08 Yes 20mg Take 20 mg U nivers 20 mg 1-21 by mouth. ity of tablet 06:17: [address] lisinopriL 2021-08 Yes 20mg Take 20 mg U nivers 20 mg 1-21 by mouth. ity of tablet 06:17: [address] lisinopriL 2021-08 Yes 20mg Take 20 mg U nivers 20 mg 1-21 by mouth. ity of tablet 06:17: [address] lisinopriL 2021-08 Yes 20mg Take 20 mg U nivers 20 mg 1-21 by mouth. ity of tablet 06:17: [address] lisinopriL 2021-08 Yes 20mg Take 20 mg U nivers 20 mg 1-21 by mouth. ity of tablet 06:17: [address] lisinopriL 2021-08 Yes 20mg Take 20 mg U nivers 20 mg 1-21 by mouth. ity of tablet 06:17: [address] lisinopriL 2021-08 Yes 20mg Take 20 mg U nivers 20 mg 1-21 by mouth. ity of tablet 06:17: [address] lisinopriL 2021-08 Yes 20mg Take 20 mg U nivers 20 mg 1-21 by mouth. ity of tablet 06:17: [address] lisinopriL 2021-08 Yes 20mg Take 20 mg U nivers 20 mg 1-21 by mouth. ity of tablet 06:17: [address] lisinopriL 2021-08 Yes 20mg Take 20 mg U nivers 20 mg 1-21 by mouth. ity of tablet 06:17: [address] lisinopriL 2021-08 Yes 20mg Take 20 mg U nivers 20 mg 1-21 by mouth. ity of tablet 06:17: [address] lisinopriL 2021-08 Yes 20mg Take 20 mg U nivers 20 mg 1-21 by mouth. ity of tablet 06:17: [address] lisinopriL 2021-08 Yes 20mg Take 20 mg U nivers 20 mg 1-21 by mouth. ity of tablet 06:17: [address] lisinopriL 2021-08 Yes 20mg Take 20 mg U nivers 20 mg 1-21 by mouth. ity of tablet 06:17: [address] lisinopriL 2021-08 Yes 20mg Take 20 mg U nivers 20 mg 1-21 by mouth. ity of tablet 06:17: [address] lisinopriL 2021-08 Yes 20mg Take 20 mg U nivers 20 mg 1-21 by mouth. ity of tablet 06:17: [address] lisinopriL 2021-08 Yes 20mg Take 20 mg U nivers 20 mg 1-21 by mouth. ity of tablet 06:17: [address] lisinopriL 2021-08 Yes 20mg Take 20 mg U nivers 20 mg 1-21 by mouth. ity of tablet 06:17: [address] lisinopriL 2021-08 Yes 20mg Take 20 mg U nivers 20 mg 1-21 by mouth. ity of tablet 06:17: [address] lisinopriL 2021-08 Yes 20mg Take 20 mg U nivers 20 mg 1-21 by mouth. ity of tablet 06:17: [address] lisinopriL 2021-08 Yes 20mg Take 20 mg U nivers 20 mg 1-21 by mouth. ity of tablet 06:17: [address] lisinopriL 2021-08 Yes 20mg Take 20 mg U nivers 20 mg 1-21 by mouth. ity of tablet 06:17: [address] meloxicam 2021-2021- No [id number] 7.5mg Take 1 [facility] 7.5 mg 8-04 10-04 tablet by ity of tablet 00:00: 04:59 mouth in [place] 00 :00 [facility] for 60 days. meloxicam 2021-2021- No [id number] 7.5mg Take 1 [facility] 7.5 mg 8-04 10-04 tablet by ity of tablet 00:00: 04:59 mouth in [place] 00 :00 [facility] for 60 days. meloxicam 2021-0 2021- No [id number] 7.5mg Take 1 [facility] 7.5 mg 8-04 10-04 tablet by ity of tablet 00:00: 04:59 mouth in [place] 00 :00 [facility] for 60 days. meloxicam 2021-0 2021- No [id number] 7.5mg Take 1 [facility] 7.5 mg 8-04 10-04 tablet by ity of tablet 00:00: 04:59 mouth in [place] 00 :00 [facility] for 60 days. meloxicam 2021-0 2021- No [id number] 7.5mg Take 1 Univers 7.5 mg 8- 10-04 tablet by ity of tablet 00:00: 04:59 mouth in [place] 00 :00 [facility] for 60 days. meloxicam 2021-0 2021- No [id number] 7.5mg Take 1 [facility] 7.5 mg 8- 10-04 tablet by ity of tablet 00:00: 04:59 mouth in [place] 00 :00 the [facility] for 60 days. meloxicam 2021-2021- No [id number] 7.5mg Take 1 [facility] 7.5 mg 8- 10-04 tablet by ity of tablet 00:00: 04:59 mouth in [place] 00 :00 the [facility] for 60 days. meloxicam 2021-0 2021- No [id number] 7.5mg Take 1 [facility] 7.5 mg 8-11 15-04 tablet by ity of tablet 00:00: 04:59 mouth in [place] 00 :00 [facility] for 60 days. meloxicam 2021-0 2021- No [id number] 7.5mg Take 1 [facility] 7.5 mg 8-11 15-04 tablet by ity of tablet 00:00: 04:59 mouth in [place] 00 :00 [facility] for 60 days. cyclobenzap 2021-2021- No [id number] 10mg Take 1 Univers rine 10 mg 8-11 14- tablet by ity of tablet 00:00: 04:59 mouth in [place] 00 :00 [facility] and 1 tablet at noon and 1 tablet in the evening. Do all this for 30 days. acetaminoph 2021-0 2021- No [id number] 1000mg Take 2 Univers en (TYLENOL 8-11 14-04 tablets by i ty of EXTRA 00:00: 04:59 mouth [place] STRENGTH) 00 :00 every 8 Medical 500 mg (eight) Branch tablet hours as needed for Pain for up to 30 days. cyclobenzap 2021-0 2021- No [id number] 10mg Take 1 Univers rine 10 mg 8-11 14- tablet by ity of tablet 00:00: 04:59 mouth in [place] 00 :00 the Medical morning Branch and 1 tablet at noon and 1 tablet in the evening. Do all this for 30 days. acetaminoph 2021-0 2021- No [id number] 1000mg Take 2 Univers en (TYLENOL 03-11- tablets by i ty of EXTRA 00:00: 04:59 mouth [place] STRENGTH) 00 :00 every 8 Medical 500 mg (eight) Branch tablet hours as needed for Pain for up to 30 days. cyclobenzap 2021-2021- No [id number] 10mg Take 1 [facility] rine 10 mg 03-11- tablet by ity of tablet 00:00: 04:59 mouth in [place] 00 :00 the Medical morning Branch and 1 tablet at noon and 1 tablet in the evening. Do all this for 30 days. acetaminoph 2021-0 2021- No [id number] 1000mg Take 2 Univers en (TYLENOL 03-11- tablets by i ty of EXTRA 00:00: 04:59 mouth [place] STRENGTH) 00 :00 every 8 Medical 500 mg (eight) Branch tablet hours as needed for Pain for up to 30 days. cyclobenzap 2021-0 2021- No [id number] 10mg Take 1 [facility] rine 10 mg 03-11 tablet by ity of tablet 00:00: 04:59 mouth in [place] 00 :00 the Medical morning Branch and 1 tablet at noon and 1 tablet in the evening. Do all this for 30 days. acetaminoph 0 2021- No [id number] 1000mg Take 2 Univers en (TYLENOL 03-11 tablets by i ty of EXTRA 00:00: 04:59 mouth [place] STRENGTH) 00 :00 every 8 Medical 500 mg (eight) Branch tablet hours as needed for Pain for up to 30 days. lisinopriL 2022-0 Yes 20mg Take 20 mg U nivers 20 mg 7-19 by mouth. ity of tablet 08:19: [address] lisinopriL 2022-0 Yes 20mg Take 20 mg U nivers 20 mg 7-19 by mouth. ity of tablet 08:19: [address] lisinopriL 2022-0 Yes 20mg Take 20 mg U nivers 20 mg 7-19 by mouth. ity of tablet 08:19: [address] lisinopriL 2022-0 Yes 20mg Take 20 mg U nivers 20 mg 7-19 by mouth. ity of tablet 08:19: [address] lisinopriL 2022-0 Yes 20mg Take 20 mg U nivers 20 mg 7-19 by mouth. ity of tablet 08:19: [address] lisinopriL 2022-0 Yes 20mg Take 20 mg U nivers 20 mg 7-19 by mouth. ity of tablet 08:19: [address] lisinopriL 2022-0 Yes 20mg Take 20 mg U nivers 20 mg 7-19 by mouth. ity of tablet 08:19: [address] lisinopriL 2-0 Yes 20mg Take 20 mg U nivers 20 mg 7-19 by mouth. ity of tablet 08:19: [address] lisinopriL 2-0 Yes 20mg Take 20 mg U nivers 20 mg 7-19 by mouth. ity of tablet 08:19: [address] lisinopriL 2-0 Yes 20mg Take 20 mg U nivers 20 mg 7-19 by mouth. ity of tablet 08:19: [address] lisinopriL 2-0 Yes 20mg Take 20 mg U nivers 20 mg 7-19 by mouth. ity of tablet 08:19: [address] lisinopriL 2-0 Yes 20mg Take 20 mg U nivers 20 mg 7-19 by mouth. ity of tablet 08:19: [address] lisinopriL 2-0 Yes 20mg Take 20 mg U nivers 20 mg 7-19 by mouth. ity of tablet 08:19: [address] lisinopriL 2022-0 Yes 20mg Take 20 mg U nivers 20 mg 7-19 by mouth. ity of tablet 08:19: [address] lisinopriL 2022-0 Yes 20mg Take 20 mg U nivers 20 mg 7-19 by mouth. ity of tablet 08:19: [address] lisinopriL 2022-0 Yes 20mg Take 20 mg U nivers 20 mg 7-19 by mouth. ity of tablet 08:19: [address] lisinopriL 2022-0 Yes 20mg Take 20 mg U nivers 20 mg 7-19 by mouth. ity of tablet 08:19: [address] lisinopriL 2022-0 Yes 20mg Take 20 mg U nivers 20 mg 7-19 by mouth. ity of tablet 08:19: [address] lisinopriL 2022-0 Yes 20mg Take 20 mg U nivers 20 mg 7-19 by mouth. ity of tablet 08:19: [address] Dose 2022-0 No Unknown 5-09 00:00: 00 [...] 2022-0 No Unknown 2-28 00:00: 00 SERTraline 2020- Yes 300mg Take 300 Un [place] 100 mg 2-13 mg by ity of tablet 00:00: mouth. [address] SERTraline 2020- Yes 300mg Take 300 Un [place] 100 mg 2-13 mg by ity of tablet 00:00: mouth. [place] [facility] SERTraline 2020- Yes 300mg Take 300 Un [place] 100 mg 2-13 mg by ity of tablet 00:00: mouth. [address] SERTraline 2020- Yes 300mg Take 300 Un [place] 100 mg 2-13 mg by ity of tablet 00:00: mouth. [address] SERTraline 2020-08 Yes 300mg Take 300 Un [place] 100 mg 2-13 mg by ity of tablet 00:00: mouth. [address] SERTraline 2020-08 Yes 300mg Take 300 Un [place] 100 mg 2-13 mg by ity of tablet 00:00: mouth. [facility] SERTraline 2020-08 Yes 300mg Take 300 Un [place] 100 mg 2-13 mg by ity of tablet 00:00: mouth. [place] [facility] SERTraline 2020-08 Yes 300mg Take 300 Un [place] 100 mg 2-13 mg by ity of tablet 00:00: mouth. [place] [facility] SERTraline 2020-08 Yes 300mg Take 300 Un [place] 100 mg 2-13 mg by ity of tablet 00:00: mouth. [place] [facility] SERTraline 2020-08 Yes 300mg Take 300 Un [place] 100 mg 2-13 mg by ity of tablet 00:00: mouth. [place] [facility] SERTraline 2020-08 Yes 300mg Take 300 Un [place] 100 mg 2-13 mg by ity of tablet 00:00: mouth. [place] [facility] SERTraline 2020-08 Yes 300mg Take 300 Un [place] 100 mg 2-13 mg by ity of tablet 00:00: mouth. [place] [facility] SERTraline 2020-08 Yes 300mg Take 300 Un [place] 100 mg 2-13 mg by ity of tablet 00:00: mouth. [place] [facility] SERTraline 2020-08 Yes 300mg Take 300 Un [place] 100 mg 2-13 mg by ity of tablet 00:00: mouth. [place] [facility] SERTraline 2020-08 Yes 300mg Take 300 Un [place] 100 mg 2-13 mg by ity of tablet 00:00: mouth. [place] [facility] SERTraline 2020-08 Yes 300mg Take 300 Un [place] 100 mg 2-13 mg by ity of tablet 00:00: mouth. [place] [facility] SERTraline 2020-08 Yes 300mg Take 300 Un [place] 100 mg 2-13 mg by ity of tablet 00:00: mouth. [place] [facility] SERTraline 2020-08 Yes 300mg Take 300 Un [place] 100 mg 2-13 mg by ity of tablet 00:00: mouth. [place] [facility] SERTraline 2020-08 Yes 300mg Take 300 Un [place] 100 mg 2-13 mg by ity of tablet 00:00: mouth. [place] [facility] SERTraline 2020-08 Yes 300mg Take 300 Un [place] 100 mg 2-13 mg by ity of tablet 00:00: mouth. [place] [facility] Branch SERTraline 2020-08 Yes 300mg Take 300 Un [place] 100 mg 2-13 mg by ity of tablet 00:00: mouth. [place] [facility] SERTraline 2020-08 Yes 300mg Take 300 Un [place] 100 mg 2-13 mg by ity of tablet 00:00: mouth. [place] [facility] SERTraline 2020-08 Yes 300mg Take 300 Un [place] 100 mg 2-13 mg by ity of tablet 00:00: mouth. [place] [facility] SERTraline 2020-08 Yes 300mg Take 300 Un [place] 100 mg 2-13 mg by ity of tablet 00:00: mouth. [place] [facility] SERTraline 2020-08 Yes 300mg Take 300 Un [place] 100 mg 2-13 mg by ity of tablet 00:00: mouth. [place] [facility] SERTraline 2020-08 Yes 300mg Take 300 Un [place] 100 mg 2-13 mg by ity of tablet 00:00: mouth. [place] [facility] SERTraline 2020-08 Yes 300mg Take 300 Un [place] 100 mg 2-13 mg by ity of tablet 00:00: mouth. [place] [facility] SERTraline 2020-08 Yes 300mg Take 300 Un [place] 100 mg 2-13 mg by ity of tablet 00:00: mouth. [place] [facility] SERTraline 2020-08 Yes 300mg Take 300 Un [place] 100 mg 2-13 mg by ity of tablet 00:00: mouth. [place] [facility] SERTraline 2020-08 Yes 300mg Take 300 Un [place] 100 mg 2-13 mg by ity of tablet 00:00: mouth. [place] [facility] SERTraline 2020-08 Yes 300mg Take 300 Un [place] 100 mg 2-13 mg by ity of tablet 00:00: mouth. [place] [facility] SERTraline 2020-08 Yes 300mg Take 300 Un [place] 100 mg 2-13 mg by ity of tablet 00:00: mouth. [place] [facility] SERTraline 2020-08 Yes 300mg Take 300 Un [place] 100 mg 2-13 mg by ity of tablet 00:00: mouth. [place] [facility] SERTraline 2020-08 Yes 300mg Take 300 Un [place] 100 mg 2-13 mg by ity of tablet 00:00: mouth. [place] [facility] SERTraline 2020-08 Yes 300mg Take 300 Un [place] 100 mg 2-13 mg by ity of tablet 00:00: mouth. [place] [facility] SERTraline 2020-08 Yes 300mg Take 300 Un [place] 100 mg 2-13 mg by ity of tablet 00:00: mouth. [place] [facility] SERTraline 2020-08 Yes 300mg Take 300 Un [place] 100 mg 2-13 mg by ity of tablet 00:00: mouth. [place] [facility] SERTraline 2020-08 Yes 300mg Take 300 Un [place] 100 mg 2-13 mg by ity of tablet 00:00: mouth. [place] [facility] SERTraline 2020-08 Yes 300mg Take 300 Un [place] 100 mg 2-13 mg by ity of tablet 00:00: mouth. [place] [facility] SERTraline 2020-08 Yes 300mg Take 300 Un [place] 100 mg 2-13 mg by ity of tablet 00:00: mouth. [place] [facility] SERTraline 2020-08 Yes 300mg Take 300 Un [place] 100 mg 2-13 mg by ity of tablet 00:00: mouth. [place] [facility] SERTraline 2020-08 Yes 300mg Take 300 Un [place] 100 mg 2-13 mg by ity of tablet 00:00: mouth. [place] [facility] SERTraline 2020-08 Yes 300mg Take 300 Un [place] 100 mg 2-13 mg by ity of tablet 00:00: mouth. [place] [facility] SERTraline 2020-08 Yes 300mg Take 300 Un [place] 100 mg 2-13 mg by ity of tablet 00:00: mouth. [place] [facility] SERTraline 2020-08 Yes 300mg Take 300 Un [place] 100 mg 2-13 mg by ity of tablet 00:00: mouth. [place] [facility] SERTraline 2020-08 Yes 300mg Take 300 Un [place] 100 mg 2-13 mg by ity of tablet 00:00: mouth. [place] [facility] SERTraline 2020-08 Yes 300mg Take 300 Un emrcedes 100 mg 2-13 mg by ity of tablet 00:00: mouth. [place] [facility] SERTraline 2020-08 Yes 300mg Take 300 Un [place] 100 mg 2-13 mg by ity of tablet 00:00: mouth. [place] [facility] Branch SERTraline 2020-08 Yes 300mg Take 300 Un [place] 100 mg 2-13 mg by ity of tablet 00:00: mouth. [place] [facility] SERTraline 2020-08 Yes 300mg Take 300 Un [place] 100 mg 2-13 mg by ity of tablet 00:00: mouth. [place] [facility] SERTraline 2020-08 Yes 300mg Take 300 Un [place] 100 mg 2-13 mg by ity of tablet 00:00: mouth. [place] [facility] SERTraline 2020-08 Yes 300mg Take 300 Un [place] 100 mg 2-13 mg by ity of tablet 00:00: mouth. [place] [facility] SERTraline 2020-08 Yes 300mg Take 300 Un [place] 100 mg 2-13 mg by ity of tablet 00:00: mouth. [place] [facility] SERTraline 2020-08 Yes 300mg Take 300 Un [place] 100 mg 2-13 mg by ity of tablet 00:00: mouth. [place] [facility] SERTraline 2020-08 Yes 300mg Take 300 Un [place] 100 mg 2-13 mg by ity of tablet 00:00: mouth. [place] [facility] SERTraline 2020-08 Yes 300mg Take 300 Un [place] 100 mg 2-13 mg by ity of tablet 00:00: mouth. [place] [facility] SERTraline 2020-08 Yes 300mg Take 300 Un [place] 100 mg 2-13 mg by ity of tablet 00:00: mouth. [place] [facility] SERTraline 2020-08 Yes 300mg Take 300 Un [place] 100 mg 2-13 mg by ity of tablet 00:00: mouth. [place] [facility] SERTraline 2020-08 Yes 300mg Take 300 Un [place] 100 mg 2-13 mg by ity of tablet 00:00: mouth. [place] [facility] SERTraline 2020-08 Yes 300mg Take 300 Un [place] 100 mg 2-13 mg by ity of tablet 00:00: mouth. [place] [facility] SERTraline 2020-08 Yes 300mg Take 300 Un [place] 100 mg 2-13 mg by ity of tablet 00:00: mouth. [place] 00 Medical Branch Dose 2020-08 No Unknown 2-02 00:00: 00 [...] 2020-08 No Unknown 0-10 00:00: 00 benzonatate Yes [id number] 100mg Take 1 [facility] 100 mg 04-09 capsule by ity of capsule 00:00: mouth 3 [place] 00 (three) Medical times Branch daily as needed for Cough. bromphenira Yes [id number] 5mL Take 5 mL [facility] mine-pseudo 04-09 by mouth 4 it y of ephedrine-D 00:00: (four) [place] (BROMFED 00 times Medical DM) 2-30-10 daily as Bran ch mg/5 mL needed for syrup Congestion /Allergies or Cough. albuterol Yes [id number] 2{puff} Inhale 2 Univers 90 9-02 Puffs ity of mcg/actuati 00:00: every 4 [place] as on inhaler 00 (four) Medical hours as Branch needed for Wheezing or Shortness of Breath. ondansetron Yes [id number] 4mg Take 1 [facility] (ZOFRAN - tablet by ity of ODT) 4 mg 00:00: mouth [place] disintegrat 00 every 8 Medic al ing tablet (eight) Branch hours as needed for Nausea and Vomiting (N/V). benzonatate 2020-0 Yes [id number] 100mg Take 1 [facility] 100 mg 9-02 capsule by ity of capsule 00:00: mouth 3 [place] 00 (three) Medical times Branch daily as needed for Cough. bromphenira 2020-0 Yes [id number] 5mL Take 5 mL [facility] mine-pseudo 9-02 by mouth 4 it y of ephedrine-D 00:00: (four) [place] (BROMFED 00 times Medical DM) 2-30-10 daily as Bran ch mg/5 mL needed for syrup Congestion /Allergies or Cough. albuterol 0 Yes [id number] 2{puff} Inhale 2 [facility] 90 9-02 Puffs ity of mcg/actuati 00:00: every 4 [place] on inhaler 00 (four) Medical hours as Branch needed for Wheezing or Shortness of Breath. ondansetron 0 Yes [id number] 4mg Take 1 [facility] (ZOFRAN 9-02 tablet by ity of ODT) 4 mg 00:00: mouth [place] disintegrat 00 every 8 Medic al ing tablet (eight) Branch hours as needed for Nausea and Vomiting (N/V). benzonatate 2020-0 Yes [id number] 100mg Take 1 [facility] 100 mg 9-02 capsule by ity of capsule 00:00: mouth 3 [place] 00 (three) Medical times Branch daily as needed for Cough. bromphenira 0 Yes [id number] 5mL Take 5 mL [facility] mine-pseudo 9-02 by mouth 4 it y of ephedrine-D 00:00: (four) [place] (BROMFED 00 times Medical DM) 2-30-10 daily as Bran ch mg/5 mL needed for syrup Congestion /Allergies or Cough. albuterol 2020-0 Yes [id number] 2{puff} Inhale 2 [facility] 90 9-02 Puffs ity of mcg/actuati 00:00: every 4 [place] on inhaler 00 (four) Medical hours as Branch needed for Wheezing or Shortness of Breath. ondansetron 2020-0 Yes [id number] 4mg Take 1 [facility] (ZOFRAN 9-02 tablet by ity of ODT) 4 mg 00:00: mouth [place] disintegrat 00 every 8 Medic al ing tablet (eight) Branch hours as needed for Nausea and Vomiting (N/V). benzonatate 2020-0 Yes [id number] 100mg Take 1 [facility] 100 mg 9-02 capsule by ity of capsule 00:00: mouth 3 [place] 00 (three) Medical times Branch daily as needed for Cough. bromphenira 2020-0 Yes [id number] 5mL Take 5 mL [facility] mine-pseudo 9-02 by mouth 4 it y of ephedrine-D 00:00: (four) [place] (BROMFED 00 times Medical DM) 2-30-10 daily as Bran ch mg/5 mL needed for syrup Congestion /Allergies or Cough. albuterol 2020-0 Yes [id number] 2{puff} Inhale 2 [facility] 90 9-02 Puffs ity of mcg/actuati 00:00: every 4 [place] on inhaler 00 (four) Medical hours as Branch needed for Wheezing or Shortness of Breath. ondansetron 2020-0 Yes [id number] 4mg Take 1 [facility] (ZOFRAN 9-02 tablet by ity of ODT) 4 mg 00:00: mouth [place] disintegrat 00 every 8 Medic al ing tablet (eight) Branch hours as needed for Nausea and Vomiting (N/V). benzonatate 2020-0 Yes [id number] 100mg Take 1 [facility] 100 mg 9-02 capsule by ity of capsule 00:00: mouth 3 [place] 00 (three) Medical times Branch daily as needed for Cough. bromphenira 2020-0 Yes [id number] 5mL Take 5 mL [facility] mine-pseudo 9-02 by mouth 4 it y of ephedrine-D 00:00: (four) [place] (BROMFED 00 times Medical DM) 2-30-10 daily as Bran ch mg/5 mL needed for syrup Congestion /Allergies or Cough. albuterol 2020-0 Yes [id number] 2{puff} Inhale 2 [facility] 90 9-02 Puffs ity of mcg/actuati 00:00: every 4 [place] on inhaler 00 (four) Medical hours as Branch needed for Wheezing or Shortness of Breath. ondansetron 2020-0 Yes [id number] 4mg Take 1 [facility] (ZOFRAN 9-02 tablet by ity of ODT) 4 mg 00:00: mouth [place] disintegrat 00 every 8 Medic al ing tablet (eight) Branch hours as needed for Nausea and Vomiting (N/V). benzonatate 2020-0 Yes [id number] 100mg Take 1 [facility] 100 mg 9-02 capsule by ity of capsule 00:00: mouth 3 [place] 00 (three) Medical times Branch daily as needed for Cough. bromphenira 2020-0 Yes [id number] 5mL Take 5 mL [facility] mine-pseudo 9-02 by mouth 4 it y of ephedrine-D 00:00: (four) [place] (BROMFED 00 times Medical DM) 2-30-10 daily as Bran ch mg/5 mL needed for syrup Congestion /Allergies or Cough. albuterol 2020-0 Yes [id number] 2{puff} Inhale 2 [facility] 90 9-02 Puffs ity of mcg/actuati 00:00: every 4 [place] on inhaler 00 (four) Medical hours as Branch needed for Wheezing or Shortness of Breath. ondansetron 2020-0 Yes [id number] 4mg Take 1 [facility] (ZOFRAN 9-02 tablet by ity of ODT) 4 mg 00:00: mouth [place] disintegrat 00 every 8 Medic al ing tablet (eight) Branch hours as needed for Nausea and Vomiting (N/V). benzonatate 2020-0 Yes [id number] 100mg Take 1 [facility] 100 mg 9-02 capsule by ity of capsule 00:00: mouth 3 [place] 00 (three) Medical times Branch daily as needed for Cough. bromphenira 2020-0 Yes [id number] 5mL Take 5 mL [facility] mine-pseudo 9-02 by mouth 4 it y of ephedrine-D 00:00: (four) [place] (BROMFED 00 times Medical DM) 2-30-10 daily as Bran ch mg/5 mL needed for syrup Congestion /Allergies or Cough. albuterol 2020-0 Yes [id number] 2{puff} Inhale 2 [facility] 90 9-02 Puffs ity of mcg/actuati 00:00: every 4 [place] as on inhaler 00 (four) Medical hours as Branch needed for Wheezing or Shortness of Breath. ondansetron 2020-0 Yes [id number] 4mg Take 1 Univers (ZOFRAN 9-02 tablet by [facility]y of ODT) 4 mg 00:00: mouth [place] disintegrat 00 every 8 Medic al ing tablet (eight) Branch hours as needed for Nausea and Vomiting (N/V). benzonatate 2020-0 Yes [id number] 100mg Take 1 [facility] 100 mg 9-02 capsule by [facility] of capsule 00:00: mouth 3 [place] 00 (three) Medical times Branch daily as needed for Cough. bromphenira 2020-0 Yes [id number] 5mL Take 5 mL [facility] mine-pseudo 9-02 by mouth 4 [facility] y of ephedrine-D 00:00: (four[place] [facility] (BROMFED 00 times Medical DM) 2-30-10 daily as Bran ch mg/5 mL needed for syrup Congestion /Allergies or Cough. albuterol 0 Yes [id number] 2{puff} Inhale 2 [facility] 90 9-02 Puffs ity of mcg/actuati 00:00: every 4 [place] [facility] on inhaler 00 (four) Medical hours as Branch needed for Wheezing or Shortness of Breath. ondansetron 0 Yes [id number] 4mg Take 1 [facility] (ZOFRAN 9-02 tablet by ity of ODT) 4 mg 00:00: mouth [place] disintegrat 00 every 8 Medic al ing tablet (eight) Branch hours as needed for Nausea and Vomiting (N/V). benzonatate 0 Yes [id number] 100mg Take 1 [facility] 100 mg 9-02 capsule by [facility] of capsule 00:00: mouth 3 [place] 00 (three) Medical times Branch daily as needed for Cough. bromphenira 2020-0 Yes [id number] 5mL Take 5 mL [facility] mine-pseudo 9-02 by mouth 4 [facility] of ephedrine-D 00:00: (four) [place] [facility] ([facility] 00 times Medical DM) 2-30-10 daily as Bran ch mg/5 mL needed for syrup Congestion /Allergies or Cough. albuterol 2020-0 Yes [id number] 2{puff} Inhale 2 [facility] 90 9-02 Puffs ity of mcg/actuati 00:00: every 4 [place] on inhaler 00 (four) Medical hours as Branch needed for Wheezing or Shortness of Breath. ondansetron 2020-0 Yes [id number] 4mg Take 1 [facility] (ZOFRAN 9-02 tablet by ity of ODT) 4 mg 00:00: mouth [place] disintegrat 00 every 8 Medic al ing tablet (eight) Branch hours as needed for Nausea and Vomiting (N/V). benzonatate 2020-0 Yes [id number] 100mg Take 1 [facility] 100 mg 9-02 capsule by [facility]y of capsule 00:00: mouth 3 [place] 00 (three) Medical times Branch daily as needed for Cough. bromphenira 0 Yes [id number] 5mL Take 5 mL [facility] mine-pseudo 9-02 by mouth 4 [facility] of ephedrine-D 00:00: (four) [place] [facility] ([facility]OMF[facility] 00 times Medical DM) 2-30-10 daily as Bran ch mg/5 mL needed for syrup Congestion /Allergies or Cough. albuterol 0 Yes [id number] 2{puff} Inhale 2 [facility] 90 9-02 Puffs ity of mcg/actuati 00:00: every 4 [place] [facility] inhaler 00 (four) Medical hours as Branch needed for Wheezing or Shortness of Breath. ondansetron 0 Yes [id number] 4mg Take 1 [facility] (ZOFRAN 9-02 tablet by [facility]y of ODT) 4 mg 00:00: mouth [place] disintegrat 00 every 8 Medic al ing tablet (eight) Branch hours as needed for Nausea and Vomiting (N/V). benzonatate 0 Yes [id number] 100mg Take 1 [facility] 100 mg 9-02 capsule by [facility] of capsule 00:00: mouth 3 [place] 00 (three) Medical times Branch daily as needed for Cough. bromphenira 0 Yes [id number] 5mL Take 5 mL [facility] mine-pseudo 9-02 by mouth 4 [facility] of ephedrine-D 00:00: (four) [place] [facility] ([facility]OMF[facility] 00 times Medical DM) 2-30-10 daily as Bran ch mg/5 mL needed for syrup Congestion /Allergies or Cough. albuterol 0 Yes [id number] 2{puff} Inhale 2 [facility] 90 9-02 Puffs ity of mcg/actuati 00:00: every 4 [place] [facility] inhaler 00 (four) Medical hours as Branch needed for Wheezing or Shortness of Breath. ondansetron 2020-0 Yes [id number] 4mg Take 1 [facility] (ZOFRAN 9-02 tablet by ity of ODT) 4 mg 00:00: mouth [place] disintegrat 00 every 8 Medic al ing tablet (eight) Branch hours as needed for Nausea and Vomiting (N/V). benzonatate 2020-0 Yes [id number] 100mg Take 1 [facility] 100 mg 9-02 capsule by ity of capsule 00:00: mouth 3 [place] 00 (three) Medical times Branch daily as needed for Cough. bromphenira 2020-0 Yes [id number] 5mL Take 5 mL [facility] mine-pseudo 9-02 by mouth 4 [facility] y of ephedrine-D 00:00: (four) [place] [facility] (BROMFED 00 times Medical DM) 2-30-10 daily as Bran ch mg/5 mL needed for syrup Congestion /Allergies or Cough. albuterol Yes [id number] 2{puff} Inhale 2 [facility] 90 9-02 Puffs ity of mcg/actuati 00:00: every 4 [place] [facility] inhaler 00 (four) Medical hours as Branch needed for Wheezing or Shortness of Breath. ondansetron 0 Yes [id number] 4mg Take 1 [facility] (ZOFRAN 9-02 tablet by [facility]y of ODT) 4 mg 00:00: mouth [place] disintegrat 00 every 8 Medic al ing tablet (eight) Branch hours as needed for Nausea and Vomiting (N/V). benzonatate 0 Yes [id number] 100mg Take 1 [facility] 100 mg 9-02 capsule by [facility]y of capsule 00:00: mouth 3 [place] 00 (three) Medical times Branch daily as needed for Cough. bromphenira 0 Yes [id number] 5mL Take 5 mL [facility] mine-pseudo 9-02 by mouth 4 [facility] y of ephedrine-D 00:00: (four) [place] [facility] (BROMF[facility] 00 times Medical DM) 2-30-10 daily as Bran ch mg/5 mL needed for syrup Congestion /Allergies or Cough. albuterol 0 Yes [id number] 2{puff} Inhale 2 [facility] 90 9-02 Puffs ity of mcg/actuati 00:00: every 4 [place] inhaler 00 (four) Medical hours as Branch needed for Wheezing or Shortness of Breath. ondansetron 2020-0 Yes [id number] 4mg Take 1 [facility] (ZOFRAN 9-02 tablet by [facility]y of ODT) 4 mg 00:00: mouth [place] disintegrat 00 every 8 Medic al ing tablet (eight) Branch hours as needed for Nausea and Vomiting (N/V). benzonatate 2020-0 Yes [id number] 100mg Take 1 [facility] 100 mg 9-02 capsule by ity of capsule 00:00: mouth 3 [place] 00 (three) Medical times Branch daily as needed for Cough. bromphenira 2020-0 Yes [id number] 5mL Take 5 mL [facility] mine-pseudo 9-02 by mouth 4 [facility] y of ephedrine-D 00:00: (four) [place] [facility] (BROMFED 00 times Medical DM) 2-30-10 daily as Bran ch mg/5 mL needed for syrup Congestion /Allergies or Cough. albuterol Yes [id number] 2{puff} Inhale 2 [facility] 90 9-02 Puffs ity of mcg/actuati 00:00: every 4 [place] [facility] inhaler 00 (four) Medical hours as Branch needed for Wheezing or Shortness of Breath. ondansetron 2020-0 Yes [id number] 4mg Take 1 [facility] (ZOFRAN 9-02 tablet by ity of ODT) 4 mg 00:00: mouth [place] disintegrat 00 every 8 Medic al ing tablet (eight) Branch hours as needed for Nausea and Vomiting (N/V). benzonatate 2020-0 Yes [id number] 100mg Take 1 [facility] 100 mg 9-02 capsule by [facility]y of capsule 00:00: mouth 3 [place] (three) Medical times Branch daily as needed for Cough. bromphenira 2020-0 Yes [id number] 5mL Take 5 mL [facility] mine-pseudo 9-02 by mouth 4 [facility] y of ephedrine-D 00:00: (four) [place] [facility] ([facility]OMF[facility] 00 times Medical DM) 2-30-10 daily as Bran ch mg/5 mL needed for syrup Congestion /Allergies or Cough. albuterol 2020-0 Yes [id number] 2{puff} Inhale 2 [facility] 90 9-02 Puffs ity of mcg/actuati 00:00: every 4 [place] inhaler 00 (four) Medical hours as Branch needed for Wheezing or Shortness of Breath. ondansetron 2020-0 Yes [id number] 4mg Take 1 [facility] (ZOFRAN 9-02 tablet by ity of ODT) 4 mg 00:00: mouth [place] disintegrat 00 every 8 Medic al ing tablet (eight) Branch hours as needed for Nausea and Vomiting (N/V). benzonatate 2020-0 Yes [id number] 100mg Take 1 [facility] 100 mg 9-02 capsule by ity of capsule 00:00: mouth 3 [place] 00 (three) Medical times Branch daily as needed for Cough. bromphenira 2020-0 Yes [id number] 5mL Take 5 mL [facility] mine-pseudo 9-02 by mouth 4 [facility] y of ephedrine-D 00:00: (four) [place] [facility] (BROMF[facility] 00 times Medical DM) 2-30-10 daily as Bran ch mg/5 mL needed for syrup Congestion /Allergies or Cough. albuterol 2020-0 Yes [id number] 2{puff} Inhale 2 [facility] 90 9-02 Puffs ity of mcg/actuati 00:00: every 4 [place] inhaler 00 (four) Medical hours as Branch needed for Wheezing or Shortness of Breath. ondansetron 2020-0 Yes [id number] 4mg Take 1 [facility] (ZOFRAN 9-02 tablet by ity of ODT) 4 mg 00:00: mouth [place] disintegrat 00 every 8 Medic al ing tablet (eight) Branch hours as needed for Nausea and Vomiting (N/V). benzonatate 2020-0 Yes [id number] 100mg Take 1 [facility] 100 mg 9-02 capsule by [facility]y of capsule 00:00: mouth 3 [place] 00 (three) Medical times Branch daily as needed for Cough. bromphenira 2020-0 Yes [id number] 5mL Take 5 mL [facility] mine-pseudo 9-02 by mouth 4 [facility] y of ephedrine-D 00:00: (four) [place] [facility] (BROMF[facility] 00 times Medical DM) 2-30-10 daily as Bran ch mg/5 mL needed for syrup Congestion /Allergies or Cough. albuterol 2020-0 Yes [id number] 2{puff} Inhale 2 [facility] 90 9-02 Puffs ity of mcg/actuati 00:00: every 4 [place] inhaler 00 (four) Medical hours as Branch needed for Wheezing or Shortness of Breath. ondansetron 2020-0 Yes [id number] 4mg Take 1 [facility] (ZOFRAN 9-02 tablet by ity of ODT) 4 mg 00:00: mouth [place] disintegrat 00 every 8 Medic al ing tablet (eight) Branch hours as needed for Nausea and Vomiting (N/V). benzonatate 2020-0 Yes [id number] 100mg Take 1 [facility] 100 mg 9-02 capsule by ity of capsule 00:00: mouth 3 [place] 00 (three) Medical times Branch daily as needed for Cough. bromphenira 2020-0 Yes [id number] 5mL Take 5 mL [facility] mine-pseudo 9-02 by mouth 4 [facility] y of ephedrine-D 00:00: (four) [place] [facility] ([facility]OMF[facility] 00 times Medical DM) 2-30-10 daily as Bran ch mg/5 mL needed for syrup Congestion /Allergies or Cough. albuterol Yes [id number] 2{puff} Inhale 2 [facility] 90 9-02 Puffs ity of mcg/actuati 00:00: every 4 [place] on inhaler 00 (four) Medical hours as Branch needed for Wheezing or Shortness of Breath. ondansetron 0 Yes [id number] 4mg Take 1 [facility] (ZOFRAN 9-02 tablet by ity of ODT) 4 mg 00:00: mouth [place] disintegrat 00 every 8 Medic al ing tablet (eight) Branch hours as needed for Nausea and Vomiting (N/V). benzonatate 2020-0 Yes [id number] 100mg Take 1 [facility] 100 mg 9-02 capsule by ity of capsule 00:00: mouth 3 [place] 00 (three) Medical times Branch daily as needed for Cough. bromphenira 2020-0 Yes [id number] 5mL Take 5 mL [facility] mine-pseudo 9-02 by mouth 4 [facility] y of ephedrine-D 00:00: (four) [place] [facility] (BROMFED 00 times Medical DM) 2-30-10 daily as Bran ch mg/5 mL needed for syrup Congestion /Allergies or Cough. albuterol 2020-0 Yes [id number] 2{puff} Inhale 2 [facility] 90 9-02 Puffs ity of mcg/actuati 00:00: every 4 [place] on inhaler 00 (four) Medical hours as Branch needed for Wheezing or Shortness of Breath. ondansetron 2020-0 Yes [id number] 4mg Take 1 [facility] (ZOFRAN 9-02 tablet by ity of ODT) 4 mg 00:00: mouth [place] disintegrat 00 every 8 Medic al ing tablet (eight) Branch hours as needed for Nausea and Vomiting (N/V). benzonatate 2020-0 Yes [id number] 100mg Take 1 [facility] 100 mg 9-02 capsule by ity of capsule 00:00: mouth 3 [place] 00 (three) Medical times Branch daily as needed for Cough. bromphenira 2020-0 Yes [id number] 5mL Take 5 mL [facility] mine-pseudo 9-02 by mouth 4 it y of ephedrine-D 00:00: (four) [place] [facility] (BROMFED 00 times Medical DM) 2-30-10 daily as Bran ch mg/5 mL needed for syrup Congestion /Allergies or Cough. albuterol 0 Yes [id number] 2{puff} Inhale 2 [facility] 90 9-02 Puffs ity of mcg/actuati 00:00: every 4 [place] [facility] on inhaler 00 (four) Medical hours as Branch needed for Wheezing or Shortness of Breath. ondansetron 0 Yes [id number] 4mg Take 1 [facility] (ZOFRAN 9-02 tablet by ity of ODT) 4 mg 00:00: mouth [place] disintegrat 00 every 8 Medic al ing tablet (eight) Branch hours as needed for Nausea and Vomiting (N/V). benzonatate 2020-0 Yes [id number] 100mg Take 1 [facility] 100 mg 9-02 capsule by ity of capsule 00:00: mouth 3 [place] 00 (three) Medical times Branch daily as needed for Cough. bromphenira 2020-0 Yes [id number] 5mL Take 5 mL [facility] mine-pseudo 9-02 by mouth 4 it y of ephedrine-D 00:00: (four) [place] [facility] (BROMFED 00 times Medical DM) 2-30-10 daily as Bran ch mg/5 mL needed for syrup Congestion /Allergies or Cough. albuterol 2020-0 Yes [id number] 2{puff} Inhale 2 [facility] 90 9-02 Puffs ity of mcg/actuati 00:00: every 4 [place] [facility] on inhaler 00 (four) Medical hours as Branch needed for Wheezing or Shortness of Breath. ondansetron 2020-0 Yes [id number] 4mg Take 1 [facility] (ZOFRAN 9-02 tablet by ity of ODT) 4 mg 00:00: mouth [place] disintegrat 00 every 8 Medic al ing tablet (eight) Branch hours as needed for Nausea and Vomiting (N/V). benzonatate 2020-0 Yes [id number] 100mg Take 1 [facility] 100 mg 9-02 capsule by ity of capsule 00:00: mouth 3 [place] 00 (three) Medical times Branch daily as needed for Cough. bromphenira 2020-0 Yes [id number] 5mL Take 5 mL [facility] mine-pseudo 9-02 by mouth 4 it y of ephedrine-D 00:00: (four) [place] [facility] (BROMFED 00 times Medical DM) 2-30-10 daily as Bran ch mg/5 mL needed for syrup Congestion /Allergies or Cough. albuterol 2020-0 Yes [id number] 2{puff} Inhale 2 [facility] 90 9-02 Puffs ity of mcg/actuati 00:00: every 4 [place] on inhaler 00 (four) Medical hours as Branch needed for Wheezing or Shortness of Breath. ondansetron 2020-0 Yes [id number] 4mg Take 1 [facility] (ZOFRAN 9-02 tablet by ity of ODT) 4 mg 00:00: mouth [place] disintegrat 00 every 8 Medic al ing tablet (eight) Branch hours as needed for Nausea and Vomiting (N/V). benzonatate 2020-0 Yes [id number] 100mg Take 1 [facility] 100 mg 9-02 capsule by ity of capsule 00:00: mouth 3 [place] 00 (three) Medical times Branch daily as needed for Cough. bromphenira 2020-0 Yes [id number] 5mL Take 5 mL [facility] mine-pseudo 9-02 by mouth 4 it y of ephedrine-D 00:00: (four) [place] [facility] (BROMFED 00 times Medical DM) 2-30-10 daily as Bran ch mg/5 mL needed for syrup Congestion /Allergies or Cough. albuterol 2020-0 Yes [id number] 2{puff} Inhale 2 [facility] 90 9-02 Puffs ity of mcg/actuati 00:00: every 4 [place] [facility] on inhaler 00 (four) Medical hours as Branch needed for Wheezing or Shortness of Breath. ondansetron 2020-0 Yes [id number] 4mg Take 1 [facility] (ZOFRAN 9-02 tablet by ity of ODT) 4 mg 00:00: mouth [place] disintegrat 00 every 8 Medic al ing tablet (eight) Branch hours as needed for Nausea and Vomiting (N/V). benzonatate 2020-0 Yes [id number] 100mg Take 1 [facility] 100 mg 9-02 capsule by ity of capsule 00:00: mouth 3 [place] 00 (three) Medical times Branch daily as needed for Cough. bromphenira 2020-0 Yes [id number] 5mL Take 5 mL [facility] mine-pseudo 9-02 by mouth 4 it y of ephedrine-D 00:00: (four) [place] [facility] (BROMFED 00 times Medical DM) 2-30-10 daily as Bran ch mg/5 mL needed for syrup Congestion /Allergies or Cough. albuterol 2020-0 Yes [id number] 2{puff} Inhale 2 [facility] 90 9-02 Puffs ity of mcg/actuati 00:00: every 4 [place] [facility] on inhaler 00 (four) Medical hours as Branch needed for Wheezing or Shortness of Breath. ondansetron 0 Yes [id number] 4mg Take 1 [facility] (ZOFRAN 9-02 tablet by ity of ODT) 4 mg 00:00: mouth [place] disintegrat 00 every 8 Medic al ing tablet (eight) Branch hours as needed for Nausea and Vomiting (N/V). benzonatate 2020-0 Yes [id number] 100mg Take 1 [facility] 100 mg 9-02 capsule by ity of capsule 00:00: mouth 3 [place] 00 (three) Medical times Branch daily as needed for Cough. bromphenira 2020-0 Yes [id number] 5mL Take 5 mL [facility] mine-pseudo 9-02 by mouth 4 it y of ephedrine-D 00:00: (four) [place] [facility] (BROMFED 00 times Medical DM) 2-30-10 daily as Bran ch mg/5 mL needed for syrup Congestion /Allergies or Cough. albuterol 2020-0 Yes [id number] 2{puff} Inhale 2 [facility] 90 9-02 Puffs ity of mcg/actuati 00:00: every 4 [place] [facility] on inhaler 00 (four) Medical hours as Branch needed for Wheezing or Shortness of Breath. ondansetron 2020-0 Yes [id number] 4mg Take 1 [facility] (ZOFRAN 9-02 tablet by ity of ODT) 4 mg 00:00: mouth [place] disintegrat 00 every 8 Medic al ing tablet (eight) Branch hours as needed for Nausea and Vomiting (N/V). benzonatate 2020-0 Yes [id number] 100mg Take 1 [facility] 100 mg 9-02 capsule by ity of capsule 00:00: mouth 3 [place] 00 (three) Medical times Branch daily as needed for Cough. bromphenira 2020-0 Yes [id number] 5mL Take 5 mL [facility] mine-pseudo 9-02 by mouth 4 it y of ephedrine-D 00:00: (four) [place] [facility] (BROMFED 00 times Medical DM) 2-30-10 daily as Bran ch mg/5 mL needed for syrup Congestion /Allergies or Cough. albuterol 0 Yes [id number] 2{puff} Inhale 2 [facility] 90 9-02 Puffs ity of mcg/actuati 00:00: every 4 [place] [facility] on inhaler 00 (four) Medical hours as Branch needed for Wheezing or Shortness of Breath. ondansetron 0 Yes [id number] 4mg Take 1 [facility] (ZOFRAN 9-02 tablet by ity of ODT) 4 mg 00:00: mouth [place] disintegrat 00 every 8 Medic al ing tablet (eight) Branch hours as needed for Nausea and Vomiting (N/V). benzonatate 2020-0 Yes [id number] 100mg Take 1 [facility] 100 mg 9-02 capsule by ity of capsule 00:00: mouth 3 [place] 00 (three) Medical times Branch daily as needed for Cough. bromphenira 2020-0 Yes [id number] 5mL Take 5 mL [facility] mine-pseudo 9-02 by mouth 4 it y of ephedrine-D 00:00: (four) [place] [facility] (BROMFED 00 times Medical DM) 2-30-10 daily as Bran ch mg/5 mL needed for syrup Congestion /Allergies or Cough. albuterol 0 Yes [id number] 2{puff} Inhale 2 [facility] 90 9-02 Puffs ity of mcg/actuati 00:00: every 4 [place] [facility] on inhaler 00 (four) Medical hours as Branch needed for Wheezing or Shortness of Breath. ondansetron 0 Yes [id number] 4mg Take 1 [facility] (ZOFRAN 9-02 tablet by ity of ODT) 4 mg 00:00: mouth [place] disintegrat 00 every 8 Medic al ing tablet (eight) Branch hours as needed for Nausea and Vomiting (N/V). benzonatate 0 Yes [id number] 100mg Take 1 [facility] 100 mg 9-02 capsule by ity of capsule 00:00: mouth 3 [place] 00 (three) Medical times Branch daily as needed for Cough. bromphenira 0 Yes [id number] 5mL Take 5 mL [facility] mine-pseudo 9-02 by mouth 4 [facility] y of ephedrine-D 00:00: (four) [place] [facility] (BROMFED 00 times Medical DM) 2-30-10 daily as Bran ch mg/5 mL needed for syrup Congestion /Allergies or Cough. albuterol Yes [id number] 2{puff} Inhale 2 [facility] 90 9-02 Puffs ity of mcg/actuati 00:00: every 4 [place] [facility] on inhaler 00 (four) Medical hours as Branch needed for Wheezing or Shortness of Breath. ondansetron Yes [id number] 4mg Take 1 [facility] (ZOFRAN 9-02 tablet by ity of ODT) 4 mg 00:00: mouth [place] disintegrat 00 every 8 Medic al ing tablet (eight) Branch hours as needed for Nausea and Vomiting (N/V). benzonatate 0 Yes [id number] 100mg Take 1 [facility] 100 mg 9-02 capsule by ity of capsule 00:00: mouth 3 [place] 00 (three) Medical times Branch daily as needed for Cough. bromphenira 0 Yes [id number] 5mL Take 5 mL [facility] mine-pseudo 9-02 by mouth 4 it y of ephedrine-D 00:00: (four) [place] [facility] (BROMF[facility] 00 times Medical DM) 2-30-10 daily as Bran ch mg/5 mL needed for syrup Congestion /Allergies or Cough. albuterol 2020-0 Yes [id number] 2{puff} Inhale 2 [facility] 90 9-02 Puffs ity of mcg/actuati 00:00: every 4 [place] [facility] on inhaler 00 (four) Medical hours as Branch needed for Wheezing or Shortness of Breath. ondansetron 2020-0 Yes [id number] 4mg Take 1 [facility] (ZOFRAN 9-02 tablet by ity of ODT) 4 mg 00:00: mouth [place] disintegrat 00 every 8 Medic al ing tablet (eight) Branch hours as needed for Nausea and Vomiting (N/V). benzonatate 2020-0 Yes [id number] 100mg Take 1 [facility] 100 mg 9-02 capsule by ity of capsule 00:00: mouth 3 [place] 00 (three) Medical times Branch daily as needed for Cough. bromphenira 2020-0 Yes [id number] 5mL Take 5 mL [facility] mine-pseudo 9-02 by mouth 4 it y of ephedrine-D 00:00: (four) [place] [facility] (BROMF[facility] 00 times Medical DM) 2-30-10 daily as Bran ch mg/5 mL needed for syrup Congestion /Allergies or Cough. albuterol 0 Yes [id number] 2{puff} Inhale 2 [facility] 90 9-02 Puffs ity of mcg/actuati 00:00: every 4 [place] [facility] on inhaler 00 (four) Medical hours as Branch needed for Wheezing or Shortness of Breath. ondansetron 0 Yes [id number] 4mg Take 1 [facility] (ZOFRAN 9-02 tablet by ity of ODT) 4 mg 00:00: mouth [place] disintegrat 00 every 8 Medic al ing tablet (eight) Branch hours as needed for Nausea and Vomiting (N/V). benzonatate 2020-0 Yes [id number] 100mg Take 1 [facility] 100 mg 9-02 capsule by ity of capsule 00:00: mouth 3 [place] 00 (three) Medical times Branch daily as needed for Cough. bromphenira 2020-0 Yes [id number] 5mL Take 5 mL [facility] mine-pseudo 9-02 by mouth 4 it y of ephedrine-D 00:00: (four) [place] [facility] ([facility] 00 times Medical DM) 2-30-10 daily as Bran ch mg/5 mL needed for syrup Congestion /Allergies or Cough. albuterol 0 Yes [id number] 2{puff} Inhale 2 [facility] 90 9-02 Puffs ity of mcg/actuati 00:00: every 4 [place] [facility] on inhaler 00 (four) Medical hours as Branch needed for Wheezing or Shortness of Breath. ondansetron 0 Yes [id number] 4mg Take 1 [facility] (ZOFRAN 9-02 tablet by ity of ODT) 4 mg 00:00: mouth [place] disintegrat 00 every 8 Medic al ing tablet (eight) Branch hours as needed for Nausea and Vomiting (N/V). benzonatate 0 Yes [id number] 100mg Take 1 [facility] 100 mg 9-02 capsule by ity of capsule 00:00: mouth 3 [place] 00 (three) Medical times Branch daily as needed for Cough. bromphenira 0 Yes [id number] 5mL Take 5 mL [facility] mine-pseudo 9-02 by mouth 4 it y of ephedrine-D 00:00: (four) [place] [facility] ([facility] 00 times Medical DM) 2-30-10 daily as Bran ch mg/5 mL needed for syrup Congestion /Allergies or Cough. albuterol Yes [id number] 2{puff} Inhale 2 [facility] 90 9-02 Puffs ity of mcg/actuati 00:00: every 4 [place] [facility] on inhaler 00 (four) Medical hours as Branch needed for Wheezing or Shortness of Breath. ondansetron 0 Yes [id number] 4mg Take 1 [facility] (ZOFRAN 9-02 tablet by ity of ODT) 4 mg 00:00: mouth [place] disintegrat 00 every 8 Medic al ing tablet (eight) Branch hours as needed for Nausea and Vomiting (N/V). benzonatate 0 Yes [id number] 100mg Take 1 [facility] 100 mg 9-02 capsule by ity of capsule 00:00: mouth 3 [place] 00 (three) Medical times Branch daily as needed for Cough. bromphenira 0 Yes [id number] 5mL Take 5 mL [facility] mine-pseudo 9-02 by mouth 4 it y of ephedrine-D 00:00: (four) [place] [facility] ([facility]OM[facility] 00 times Medical DM) 2-30-10 daily as Bran ch mg/5 mL needed for syrup Congestion /Allergies or Cough. albuterol 2020-0 Yes [id number] 2{puff} Inhale 2 [facility] 90 9-02 Puffs ity of mcg/actuati 00:00: every 4 [place] [facility] on inhaler 00 (four) Medical hours as Branch needed for Wheezing or Shortness of Breath. ondansetron 2020-0 Yes [id number] 4mg Take 1 [facility] (ZOFRAN 9-02 tablet by ity of ODT) 4 mg 00:00: mouth [place] disintegrat 00 every 8 Medic al ing tablet (eight) Branch hours as needed for Nausea and Vomiting (N/V). benzonatate 2020-0 Yes [id number] 100mg Take 1 [facility] 100 mg 9-02 capsule by ity of capsule 00:00: mouth 3 [place] 00 (three) Medical times Branch daily as needed for Cough. bromphenira 2020-0 Yes [id number] 5mL Take 5 mL [facility] mine-pseudo 9-02 by mouth 4 it y of ephedrine-D 00:00: (four) [place] [facility] (BROMFED 00 times Medical DM) 2-30-10 daily as Bran ch mg/5 mL needed for syrup Congestion /Allergies or Cough. albuterol 2020-0 Yes [id number] 2{puff} Inhale 2 [facility] 90 9-02 Puffs ity of mcg/actuati 00:00: every 4 [place] [facility] on inhaler 00 (four) Medical hours as Branch needed for Wheezing or Shortness of Breath. ondansetron 2020-0 Yes [id number] 4mg Take 1 [facility] (ZOFRAN 9-02 tablet by ity of ODT) 4 mg 00:00: mouth [place] disintegrat 00 every 8 Medic al ing tablet (eight) Branch hours as needed for Nausea and Vomiting (N/V). benzonatate 2020-0 Yes [id number] 100mg Take 1 [facility] 100 mg 9-02 capsule by ity of capsule 00:00: mouth 3 [place] 00 (three) Medical times Branch daily as needed for Cough. bromphenira 2020-0 Yes [id number] 5mL Take 5 mL [facility] mine-pseudo 9-02 by mouth 4 it y of ephedrine-D 00:00: (four) [place] [facility] ([facility] 00 times Medical DM) 2-30-10 daily as Bran ch mg/5 mL needed for syrup Congestion /Allergies or Cough. albuterol 2020-0 Yes [id number] 2{puff} Inhale 2 [facility] 90 9-02 Puffs ity of mcg/actuati 00:00: every 4 [place] [facility] on inhaler 00 (four) Medical hours as Branch needed for Wheezing or Shortness of Breath. ondansetron 2020-0 Yes [id number] 4mg Take 1 [facility] (ZOFRAN 9-02 tablet by ity of ODT) 4 mg 00:00: mouth [place] disintegrat 00 every 8 Medic al ing tablet (eight) Branch hours as needed for Nausea and Vomiting (N/V). benzonatate 2020-0 Yes [id number] 100mg Take 1 [facility] 100 mg 9-02 capsule by ity of capsule 00:00: mouth 3 [place] 00 (three) Medical times Branch daily as needed for Cough. bromphenira 2020-0 Yes [id number] 5mL Take 5 mL [facility] mine-pseudo 9-02 by mouth 4 it y of ephedrine-D 00:00: (four) [place] [facility] (BROM[facility] 00 times Medical DM) 2-30-10 daily as Bran ch mg/5 mL needed for syrup Congestion /Allergies or Cough. albuterol 2020-0 Yes [id number] 2{puff} Inhale 2 [facility] 90 9-02 Puffs ity of mcg/actuati 00:00: every 4 [place] [facility] on inhaler 00 (four) Medical hours as Branch needed for Wheezing or Shortness of Breath. ondansetron 2020-0 Yes [id number] 4mg Take 1 [facility] (ZOFRAN 9-02 tablet by ity of ODT) 4 mg 00:00: mouth [place] disintegrat 00 every 8 Medic al ing tablet (eight) Branch hours as needed for Nausea and Vomiting (N/V). benzonatate 2020-0 Yes [id number] 100mg Take 1 [facility] 100 mg 9-02 capsule by ity of capsule 00:00: mouth 3 [place] 00 (three) Medical times Branch daily as needed for Cough. bromphenira 2020-0 Yes [id number] 5mL Take 5 mL [facility] mine-pseudo 9-02 by mouth 4 [facility] y of ephedrine-D 00:00: (four[place] [facility] (BROMFED 00 times Medical DM) 2-30-10 daily as Bran ch mg/5 mL needed for syrup Congestion /Allergies or Cough. albuterol 2020-0 Yes [id number] 2{puff} Inhale 2 [facility] 90 9-02 Puffs ity of mcg/actuati 00:00: every 4 [place] as on inhaler 00 (four) Medical hours as Branch needed for Wheezing or Shortness of Breath. ondansetron 2020-0 Yes [id number] 4mg Take 1 [facility] (ZOFRAN 9-02 tablet by ity of ODT) 4 mg 00:00: mouth [place] disintegrat 00 every 8 Medic al ing tablet (eight) Branch hours as needed for Nausea and Vomiting (N/V). benzonatate 2020-0 Yes [id number] 100mg Take 1 [facility] 100 mg 9-02 capsule by ity of capsule 00:00: mouth 3 [place] 00 (three) Medical times Branch daily as needed for Cough. bromphenira 2020-0 Yes [id number] 5mL Take 5 mL [facility] mine-pseudo 9-02 by mouth 4 it y of ephedrine-D 00:00: (four[place] [facility] ([facility]OMF[facility] 00 times Medical DM) 2-30-10 daily as Bran ch mg/5 mL needed for syrup Congestion /Allergies or Cough. albuterol 2020-0 Yes [id number] 2{puff} Inhale 2 [facility] 90 9-02 Puffs ity of mcg/actuati 00:00: every 4 [place] on inhaler 00 (four) Medical hours as Branch needed for Wheezing or Shortness of Breath. ondansetron 2020-0 Yes [id number] 4mg Take 1 [facility] (ZOFRAN 9-02 tablet by ity of ODT) 4 mg 00:00: mouth [place] disintegrat 00 every 8 Medic al ing tablet (eight) Branch hours as needed for Nausea and Vomiting (N/V). benzonatate 2020-0 Yes [id number] 100mg Take 1 [facility] 100 mg 9-02 capsule by ity of capsule 00:00: mouth 3 [place] 00 (three) Medical times Branch daily as needed for Cough. bromphenira 2020-0 Yes [id number] 5mL Take 5 mL [facility] mine-pseudo 9-02 by mouth 4 it y of ephedrine-D 00:00: (four[place] [facility] (BROMFED 00 times Medical DM) 2-30-10 daily as Bran ch mg/5 mL needed for syrup Congestion /Allergies or Cough. albuterol 0 Yes [id number] 2{puff} Inhale 2 [facility] 90 9-02 Puffs ity of mcg/actuati 00:00: every 4 [place] on inhaler 00 (four) Medical hours as Branch needed for Wheezing or Shortness of Breath. ondansetron 2020-0 Yes [id number] 4mg Take 1 [facility] (ZOFRAN 9-02 tablet by ity of ODT) 4 mg 00:00: mouth [place] disintegrat 00 every 8 Medic al ing tablet (eight) Branch hours as needed for Nausea and Vomiting (N/V). benzonatate 2020-0 Yes [id number] 100mg Take 1 [facility] 100 mg 9-02 capsule by ity of capsule 00:00: mouth 3 [place] 00 (three) Medical times Branch daily as needed for Cough. bromphenira 2020-0 Yes [id number] 5mL Take 5 mL [facility] mine-pseudo 9-02 by mouth 4 it y of ephedrine-D 00:00: (four) [place] [facility] (BROMFED 00 times Medical DM) 2-30-10 daily as Bran ch mg/5 mL needed for syrup Congestion /Allergies or Cough. albuterol Yes [id number] 2{puff} Inhale 2 [facility] 90 9-02 Puffs ity of mcg/actuati 00:00: every 4 [place] [facility] on inhaler 00 (four) Medical hours as Branch needed for Wheezing or Shortness of Breath. ondansetron 2020-0 Yes [id number] 4mg Take 1 [facility] (ZOFRAN 9-02 tablet by ity of ODT) 4 mg 00:00: mouth [place] disintegrat 00 every 8 Medic al ing tablet (eight) Branch hours as needed for Nausea and Vomiting (N/V). benzonatate 2020-0 Yes [id number] 100mg Take 1 [facility] 100 mg 9-02 capsule by ity of capsule 00:00: mouth 3 [place] 00 (three) Medical times Branch daily as needed for Cough. bromphenira 2020-0 Yes [id number] 5mL Take 5 mL [facility] mine-pseudo 9-02 by mouth 4 it y of ephedrine-D 00:00: (four) [place] [facility] (BROMFED 00 times Medical DM) 2-30-10 daily as Bran ch mg/5 mL needed for syrup Congestion /Allergies or Cough. albuterol Yes [id number] 2{puff} Inhale 2 [facility] 90 9-02 Puffs ity of mcg/actuati 00:00: every 4 [place] on inhaler 00 (four) Medical hours as Branch needed for Wheezing or Shortness of Breath. ondansetron Yes [id number] 4mg Take 1 [facility] (ZOFRAN 9-02 tablet by ity of ODT) 4 mg 00:00: mouth [place] disintegrat 00 every 8 Medic al ing tablet (eight) Branch hours as needed for Nausea and Vomiting (N/V). benzonatate Yes [id number] 100mg Take 1 [facility] 100 mg 9-02 capsule by ity of capsule 00:00: mouth 3 [place] 00 (three) Medical times Branch daily as needed for Cough. bromphenira 0 Yes [id number] 5mL Take 5 mL [facility] mine-pseudo 9-02 by mouth 4 it y of ephedrine-D 00:00: (four) [place] [facility] (BROMFED 00 times Medical DM) 2-30-10 daily as Bran ch mg/5 mL needed for syrup Congestion /Allergies or Cough. albuterol Yes [id number] 2{puff} Inhale 2 [facility] 90 9-02 Puffs ity of mcg/actuati 00:00: every 4 [place] on inhaler 00 (four) Medical hours as Branch needed for Wheezing or Shortness of Breath. ondansetron 0 Yes [id number] 4mg Take 1 [facility] (ZOFRAN 9-02 tablet by ity of ODT) 4 mg 00:00: mouth [place] disintegrat 00 every 8 Medic al ing tablet (eight) Branch hours as needed for Nausea and Vomiting (N/V). benzonatate 2020-0 Yes [id number] 100mg Take 1 [facility] 100 mg 9-02 capsule by ity of capsule 00:00: mouth 3 [place] 00 (three) Medical times Branch daily as needed for Cough. bromphenira 2020-0 Yes [id number] 5mL Take 5 mL [facility] mine-pseudo 9-02 by mouth 4 it y of ephedrine-D 00:00: (four) [place] [facility] (BROMFED 00 times Medical DM) 2-30-10 daily as Bran ch mg/5 mL needed for syrup Congestion /Allergies or Cough. albuterol 0 Yes [id number] 2{puff} Inhale 2 [facility] 90 9-02 Puffs ity of mcg/actuati 00:00: every 4 [place] on inhaler 00 (four) Medical hours as Branch needed for Wheezing or Shortness of Breath. ondansetron 2020-0 Yes [id number] 4mg Take 1 [facility] (ZOFRAN 9-02 tablet by ity of ODT) 4 mg 00:00: mouth [place] disintegrat 00 every 8 Medic al ing tablet (eight) Branch hours as needed for Nausea and Vomiting (N/V). benzonatate 2020-0 Yes [id number] 100mg Take 1 [facility] 100 mg 9-02 capsule by ity of capsule 00:00: mouth 3 [place] (three) Medical times Branch daily as needed for Cough. bromphenira 0 Yes [id number] 5mL Take 5 mL [facility] mine-pseudo 9-02 by mouth 4 it y of ephedrine-D 00:00: (four) [place] [facility] (BROMFED 00 times Medical DM) 2-30-10 daily as Bran ch mg/5 mL needed for syrup Congestion /Allergies or Cough. albuterol 0 Yes [id number] 2{puff} Inhale 2 [facility] 90 9-02 Puffs ity of mcg/actuati 00:00: every 4 [place] on inhaler 00 (four) Medical hours as Branch needed for Wheezing or Shortness of Breath. ondansetron 2020-0 Yes [id number] 4mg Take 1 [facility] (ZOFRAN 9-02 tablet by ity of ODT) 4 mg 00:00: mouth [place] disintegrat 00 every 8 Medic al ing tablet (eight) Branch hours as needed for Nausea and Vomiting (N/V). benzonatate 2020-0 Yes [id number] 100mg Take 1 [facility] 100 mg 9-02 capsule by ity of capsule 00:00: mouth 3 [place] 00 (three) Medical times Branch daily as needed for Cough. bromphenira 2020-0 Yes [id number] 5mL Take 5 mL [facility] mine-pseudo 9-02 by mouth 4 it y of ephedrine-D 00:00: (four) [place] [facility] (BROMFED 00 times Medical DM) 2-30-10 daily as Bran ch mg/5 mL needed for syrup Congestion /Allergies or Cough. albuterol 2020-0 Yes [id number] 2{puff} Inhale 2 [facility] 90 9-02 Puffs ity of mcg/actuati 00:00: every 4 [place] on inhaler 00 (four) Medical hours as Branch needed for Wheezing or Shortness of Breath. ondansetron 2020-0 Yes [id number] 4mg Take 1 [facility] (ZOFRAN 9-02 tablet by ity of ODT) 4 mg 00:00: mouth [place] disintegrat 00 every 8 Medic al ing tablet (eight) Branch hours as needed for Nausea and Vomiting (N/V). benzonatate 2020-0 Yes [id number] 100mg Take 1 [facility] 100 mg 9-02 capsule by ity of capsule 00:00: mouth 3 [place] 00 (three) Medical times Branch daily as needed for Cough. bromphenira 2020-0 Yes [id number] 5mL Take 5 mL [facility] mine-pseudo 9-02 by mouth 4 it y of ephedrine-D 00:00: (four) [place] [facility] (BROMFED 00 times Medical DM) 2-30-10 daily as Bran ch mg/5 mL needed for syrup Congestion /Allergies or Cough. albuterol 2020-0 Yes [id number] 2{puff} Inhale 2 [facility] 90 9-02 Puffs ity of mcg/actuati 00:00: every 4 [place] on inhaler 00 (four) Medical hours as Branch needed for Wheezing or Shortness of Breath. ondansetron 2020-0 Yes [id number] 4mg Take 1 [facility] (ZOFRAN 9-02 tablet by ity of ODT) 4 mg 00:00: mouth [place] disintegrat 00 every 8 Medic al ing tablet (eight) Branch hours as needed for Nausea and Vomiting (N/V). benzonatate 2020-0 Yes [id number] 100mg Take 1 [facility] 100 mg 9-02 capsule by ity of capsule 00:00: mouth 3 [place] 00 (three) Medical times Branch daily as needed for Cough. bromphenira 2021-0 Yes [id number] 5mL Take 5 mL [facility] mine-pseudo 9-02 by mouth 4 it y of ephedrine-D 00:00: (four) [place] [facility] (BROMFED 00 times Medical DM) 2-30-10 daily as Bran ch mg/5 mL needed for syrup Congestion /Allergies or Cough. albuterol 2020- Yes [id number] 2{puff} Inhale 2 [facility] 90 9-02 Puffs ity of mcg/actuati 00:00: every 4 [place] on inhaler 00 (four) Medical hours as Branch needed for Wheezing or Shortness of Breath. ondansetron 2020-0 Yes [id number] 4mg Take 1 [facility] (ZOFRAN 9-02 tablet by ity of ODT) 4 mg 00:00: mouth [place] disintegrat 00 every 8 Medic al ing tablet (eight) Branch hours as needed for Nausea and Vomiting (N/V). benzonatate 2020-0 Yes [id number] 100mg Take 1 [facility] 100 mg 9-02 capsule by ity of capsule 00:00: mouth 3 [place] 00 (three) Medical times Branch daily as needed for Cough. bromphenira 0 Yes [id number] 5mL Take 5 mL [facility] mine-pseudo 9-02 by mouth 4 it y of ephedrine-D 00:00: (four) [place] [facility] (BROMFED 00 times Medical DM) 2-30-10 daily as Bran ch mg/5 mL needed for syrup Congestion /Allergies or Cough. albuterol Yes [id number] 2{puff} Inhale 2 [facility] 90 9-02 Puffs ity of mcg/actuati 00:00: every 4 [place] [facility] on inhaler 00 (four) Medical hours as Branch needed for Wheezing or Shortness of Breath. ondansetron 2020-0 Yes [id number] 4mg Take 1 [facility] (ZOFRAN 9-02 tablet by ity of ODT) 4 mg 00:00: mouth [place] disintegrat 00 every 8 Medic al ing tablet (eight) Branch hours as needed for Nausea and Vomiting (N/V). benzonatate 2020-0 Yes [id number] 100mg Take 1 [facility] 100 mg 9-02 capsule by ity of capsule 00:00: mouth 3 [place] 00 (three) Medical times Branch daily as needed for Cough. bromphenira 2020-0 Yes [id number] 5mL Take 5 mL [facility] mine-pseudo 9-02 by mouth 4 it y of ephedrine-D 00:00: (four) [place] [facility] (BROMFED 00 times Medical DM) 2-30-10 daily as Bran ch mg/5 mL needed for syrup Congestion /Allergies or Cough. albuterol 2020-0 Yes [id number] 2{puff} Inhale 2 [facility] 90 9-02 Puffs ity of mcg/actuati 00:00: every 4 [place] on inhaler 00 (four) Medical hours as Branch needed for Wheezing or Shortness of Breath. ondansetron 2020-0 Yes [id number] 4mg Take 1 [facility] (ZOFRAN 9-02 tablet by ity of ODT) 4 mg 00:00: mouth [place] disintegrat 00 every 8 Medic al ing tablet (eight) Branch hours as needed for Nausea and Vomiting (N/V). benzonatate 2020-0 Yes [id number] 100mg Take 1 [facility] 100 mg 9-02 capsule by ity of capsule 00:00: mouth 3 [place] 00 (three) Medical times Branch daily as needed for Cough. bromphenira 2020-0 Yes [id number] 5mL Take 5 mL [facility] mine-pseudo 9-02 by mouth 4 it y of ephedrine-D 00:00: (four) [place] [facility] (BROMFED 00 times Medical DM) 2-30-10 daily as Bran ch mg/5 mL needed for syrup Congestion /Allergies or Cough. albuterol 2020-0 Yes [id number] 2{puff} Inhale 2 [facility] 90 9-02 Puffs ity of mcg/actuati 00:00: every 4 [place] on inhaler 00 (four) Medical hours as Branch needed for Wheezing or Shortness of Breath. ondansetron 2020-0 Yes [id number] 4mg Take 1 [facility] (ZOFRAN 9-02 tablet by ity of ODT) 4 mg 00:00: mouth [place] disintegrat 00 every 8 Medic al ing tablet (eight) Branch hours as needed for Nausea and Vomiting (N/V). benzonatate 2020-0 Yes [id number] 100mg Take 1 [facility] 100 mg 9-02 capsule by ity of capsule 00:00: mouth 3 [place] 00 (three) Medical times Branch daily as needed for Cough. bromphenira 2020-0 Yes [id number] 5mL Take 5 mL [facility] mine-pseudo 9-02 by mouth 4 it y of ephedrine-D 00:00: (four) [place] [facility] (BROMFED 00 times Medical DM) 2-30-10 daily as Bran ch mg/5 mL needed for syrup Congestion /Allergies or Cough. albuterol 2020-0 Yes [id number] 2{puff} Inhale 2 [facility] 90 9-02 Puffs ity of mcg/actuati 00:00: every 4 [place] on inhaler 00 (four) Medical hours as Branch needed for Wheezing or Shortness of Breath. ondansetron 2020-0 Yes [id number] 4mg Take 1 [facility] (ZOFRAN 9-02 tablet by ity of ODT) 4 mg 00:00: mouth [place] disintegrat 00 every 8 Medic al ing tablet (eight) Branch hours as needed for Nausea and Vomiting (N/V). benzonatate 2020-0 Yes [id number] 100mg Take 1 [facility] 100 mg 9-02 capsule by ity of capsule 00:00: mouth 3 [place] 00 (three) Medical times Branch daily as needed for Cough. bromphenira 2020-0 Yes [id number] 5mL Take 5 mL [facility] mine-pseudo 9-02 by mouth 4 it y of ephedrine-D 00:00: (four) [place] [facility] (BROMFED 00 times Medical DM) 2-30-10 daily as Bran ch mg/5 mL needed for syrup Congestion /Allergies or Cough. albuterol 2020-0 Yes [id number] 2{puff} Inhale 2 [facility] 90 9-02 Puffs ity of mcg/actuati 00:00: every 4 [place] [facility] on inhaler 00 (four) Medical hours as Branch needed for Wheezing or Shortness of Breath. ondansetron 2020-0 Yes [id number] 4mg Take 1 [facility] (ZOFRAN 9-02 tablet by ity of ODT) 4 mg 00:00: mouth [place] disintegrat 00 every 8 Medic al ing tablet (eight) Branch hours as needed for Nausea and Vomiting (N/V). benzonatate 2020-0 Yes [id number] 100mg Take 1 [facility] 100 mg 9-02 capsule by ity of capsule 00:00: mouth 3 [place] 00 (three) Medical times Branch daily as needed for Cough. bromphenira 2020-0 Yes [id number] 5mL Take 5 mL [facility] mine-pseudo 9-02 by mouth 4 it y of ephedrine-D 00:00: (four) [place] [facility] (BROMFED 00 times Medical DM) 2-30-10 daily as Bran ch mg/5 mL needed for syrup Congestion /Allergies or Cough. albuterol 2020-0 Yes [id number] 2{puff} Inhale 2 [facility] 90 9-02 Puffs ity of mcg/actuati 00:00: every 4 [place] [facility] on inhaler 00 (four) Medical hours as Branch needed for Wheezing or Shortness of Breath. ondansetron 2020-0 Yes [id number] 4mg Take 1 [facility] (ZOFRAN 9-02 tablet by ity of ODT) 4 mg 00:00: mouth [place] disintegrat 00 every 8 Medic al ing tablet (eight) Branch hours as needed for Nausea and Vomiting (N/V). benzonatate 2020-0 Yes [id number] 100mg Take 1 [facility] 100 mg 9-02 capsule by ity of capsule 00:00: mouth 3 [place] 00 (three) Medical times Branch daily as needed for Cough. bromphenira 2020-0 Yes [id number] 5mL Take 5 mL [facility] mine-pseudo 9-02 by mouth 4 it y of ephedrine-D 00:00: (four) [place] [facility] (BROMFED 00 times Medical DM) 2-30-10 daily as Bran ch mg/5 mL needed for syrup Congestion /Allergies or Cough. albuterol 2020-0 Yes [id number] 2{puff} Inhale 2 [facility] 90 9-02 Puffs ity of mcg/actuati 00:00: every 4 [place] [facility] on inhaler 00 (four) Medical hours as Branch needed for Wheezing or Shortness of Breath. ondansetron 2020-0 Yes [id number] 4mg Take 1 [facility] (ZOFRAN 9-02 tablet by ity of ODT) 4 mg 00:00: mouth [place] disintegrat 00 every 8 Medic al ing tablet (eight) Branch hours as needed for Nausea and Vomiting (N/V). benzonatate 2020-0 Yes [id number] 100mg Take 1 [facility] 100 mg 9-02 capsule by ity of capsule 00:00: mouth 3 [place] 00 (three) Medical times Branch daily as needed for Cough. bromphenira 0 Yes [id number] 5mL Take 5 mL [facility] mine-pseudo 9-02 by mouth 4 it y of ephedrine-D 00:00: (four) [place] [facility] (BROMFED 00 times Medical DM) 2-30-10 daily as Bran ch mg/5 mL needed for syrup Congestion /Allergies or Cough. albuterol 0 Yes [id number] 2{puff} Inhale 2 [facility] 90 9-02 Puffs ity of mcg/actuati 00:00: every 4 [place] [facility] on inhaler 00 (four) Medical hours as Branch needed for Wheezing or Shortness of Breath. ondansetron 0 Yes [id number] 4mg Take 1 [facility] (ZOFRAN 9-02 tablet by ity of ODT) 4 mg 00:00: mouth [place] disintegrat 00 every 8 Medic al ing tablet (eight) Branch hours as needed for Nausea and Vomiting (N/V). benzonatate 0 Yes [id number] 100mg Take 1 [facility] 100 mg 9-02 capsule by ity of capsule 00:00: mouth 3 [place] 00 (three) Medical times Branch daily as needed for Cough. bromphenira 0 Yes [id number] 5mL Take 5 mL [facility] mine-pseudo 9-02 by mouth 4 it y of ephedrine-D 00:00: (four) [place] [facility] (BROMFED 00 times Medical DM) 2-30-10 daily as Bran ch mg/5 mL needed for syrup Congestion /Allergies or Cough. albuterol 0 Yes [id number] 2{puff} Inhale 2 [facility] 90 9-02 Puffs ity of mcg/actuati 00:00: every 4 [place] on inhaler 00 (four) Medical hours as Branch needed for Wheezing or Shortness of Breath. ondansetron 2020-0 Yes [id number] 4mg Take 1 [facility] (ZOFRAN 9-02 tablet by ity of ODT) 4 mg 00:00: mouth [place] disintegrat 00 every 8 Medic al ing tablet (eight) Branch hours as needed for Nausea and Vomiting (N/V). benzonatate 2021-0 Yes [id number] 100mg Take 1 [facility] 100 mg 9-02 capsule by ity of capsule 00:00: mouth 3 [place] 00 (three) Medical times Branch daily as needed for Cough. bromphenira 0 Yes [id number] 5mL Take 5 mL [facility] mine-pseudo 9-02 by mouth 4 it y of ephedrine-D 00:00: (four) [place] [facility] (BROMFED 00 times Medical DM) 2-30-10 daily as Bran ch mg/5 mL needed for syrup Congestion /Allergies or Cough. albuterol Yes [id number] 2{puff} Inhale 2 [facility] 90 9-02 Puffs ity of mcg/actuati 00:00: every 4 [place] [facility] on inhaler 00 (four) Medical hours as Branch needed for Wheezing or Shortness of Breath. ondansetron Yes [id number] 4mg Take 1 [facility] (ZOFRAN 9-02 tablet by ity of ODT) 4 mg 00:00: mouth [place] disintegrat 00 every 8 Medic al ing tablet (eight) Branch hours as needed for Nausea and Vomiting (N/V). benzonatate 0 Yes [id number] 100mg Take 1 [facility] 100 mg 9-02 capsule by ity of capsule 00:00: mouth 3 [place] 00 (three) Medical times Branch daily as needed for Cough. bromphenira 0 Yes [id number] 5mL Take 5 mL [facility] mine-pseudo 9-02 by mouth 4 it y of ephedrine-D 00:00: (four) [place] [facility] (BROMFED 00 times Medical DM) 2-30-10 daily as Bran ch mg/5 mL needed for syrup Congestion /Allergies or Cough. albuterol 0 Yes [id number] 2{puff} Inhale 2 [facility] 90 9-02 Puffs ity of mcg/actuati 00:00: every 4 [place] [facility] on inhaler 00 (four) Medical hours as Branch needed for Wheezing or Shortness of Breath. ondansetron 0 Yes [id number] 4mg Take 1 [facility] (ZOFRAN 9-02 tablet by ity of ODT) 4 mg 00:00: mouth [place] disintegrat 00 every 8 Medic al ing tablet (eight) Branch hours as needed for Nausea and Vomiting (N/V). benzonatate 0 Yes [id number] 100mg Take 1 [facility] 100 mg 9-02 capsule by ity of capsule 00:00: mouth 3 [place] 00 (three) Medical times Branch daily as needed for Cough. bromphenira 0 Yes [id number] 5mL Take 5 mL [facility] mine-pseudo 9-02 by mouth 4 it y of ephedrine-D 00:00: (four) [place] [facility] (BROMFED 00 times Medical DM) 2-30-10 daily as Bran ch mg/5 mL needed for syrup Congestion /Allergies or Cough. albuterol Yes [id number] 2{puff} Inhale 2 [facility] 90 9-02 Puffs ity of mcg/actuati 00:00: every 4 [place] [facility] on inhaler 00 (four) Medical hours as Branch needed for Wheezing or Shortness of Breath. ondansetron Yes [id number] 4mg Take 1 [facility] (ZOFRAN 9-02 tablet by ity of ODT) 4 mg 00:00: mouth [place] disintegrat 00 every 8 Medic al ing tablet (eight) Branch hours as needed for Nausea and Vomiting (N/V). benzonatate 0 Yes [id number] 100mg Take 1 [facility] 100 mg 9-02 capsule by ity of capsule 00:00: mouth 3 [place] 00 (three) Medical times Branch daily as needed for Cough. bromphenira 0 Yes [id number] 5mL Take 5 mL [facility] mine-pseudo 9-02 by mouth 4 it y of ephedrine-D 00:00: (four) [place] [facility] (BROMFED 00 times Medical DM) 2-30-10 daily as Bran ch mg/5 mL needed for syrup Congestion /Allergies or Cough. albuterol 0 Yes [id number] 2{puff} Inhale 2 [facility] 90 9-02 Puffs ity of mcg/actuati 00:00: every 4 [place] [facility] on inhaler 00 (four) Medical hours as Branch needed for Wheezing or Shortness of Breath. ondansetron 0 Yes [id number] 4mg Take 1 [facility] (ZOFRAN 9-02 tablet by ity of ODT) 4 mg 00:00: mouth [place] disintegrat 00 every 8 Medic al ing tablet (eight) Branch hours as needed for Nausea and Vomiting (N/V). benzonatate Yes [id number] 100mg Take 1 [facility] 100 mg 04-09 capsule by ity of capsule 00:00: mouth 3 [place] 00 (three) Medical times Branch daily as needed for Cough. bromphenira 0 Yes [id number] 5mL Take 5 mL [facility] mine-pseudo 04-09 by mouth 4 it y of ephedrine-D 00:00: (four) [place] [facility] (BROM[facility]ED 00 times Medical DM) 2-30-10 daily as Bran ch mg/5 mL needed for syrup Congestion /Allergies or Cough. albuterol Yes [id number] 2{puff} Inhale 2 [facility] 90 04-09 Puffs ity of mcg/actuati 00:00: every 4 [place] [facility] on inhaler 00 (four) Medical hours as Branch needed for Wheezing or Shortness of Breath. ondansetron Yes [id number] 4mg Take 1 [facility] (ZOFRAN 04-09 tablet by ity of ODT) 4 mg 00:00: mouth [place] disintegrat 00 every 8 Medic al ing tablet (eight) Branch hours as needed for Nausea and Vomiting (N/V). Zoloft 100 2020-0 No 15mg mg tablet 8 00:00: 00 Dose 2020-0 No Unknown 8- 00:00: 00 Zoloft 100 2020-0 No 15mg mg tablet 8- 00:00: 00 Dose 2020-0 No Unknown 8-21 00:00: 00 Zoloft 100 2020-0 No 15mg mg tablet 6- 00:00: 00 Dose 2020-0 No Unknown 6-23 00:00: 00 Zoloft 100 2020-0 No 15mg mg tablet 6-23 00:00: 00 Dose 2020-0 No Unknown 6-23 00:00: 00 Dose 2020-0 No Unknown 5-04 00:00: 00 Dose 2020-0 No Unknown 5-04 00:00: 00 lisinopriL 2020-0 Yes 10mg Take 1 [facility] 10 mg 3-18 tablet by [facility] of tablet 00:00: mouth. [place] 00 [facility] lisinopriL 2020-0 Yes 10mg Take 1 [facility] rs 10 mg 3-18 tablet by ity of tablet 00:00: mouth. [place] [facility] lisinopriL 2021-0 Yes 10mg Take 10 mg U nivers 10 mg 3-18 by mouth. ity of tablet 00:00: [place] [facility] lisinopriL 2021-0 Yes 10mg Take 10 mg U nivers 10 mg 3-18 by mouth. ity of tablet 00:00: [place] [facility] lisinopriL 2021-0 Yes 10mg Take 10 mg U nivers 10 mg 3-18 by mouth. ity of tablet 00:00: [place] [facility] lisinopriL 2021-0 Yes 10mg Take 10 mg U nivers 10 mg 3-18 by mouth. ity of tablet 00:00: [place] [facility] lisinopriL 2021-0 Yes 10mg Take 10 mg U nivers 10 mg 3-18 by mouth. ity of tablet 00:00: [place] [facility] lisinopriL 2021-0 Yes 10mg Take 10 mg U nivers 10 mg 3-18 by mouth. ity of tablet 00:00: [place] [facility] lisinopriL 2021-0 Yes 10mg Take 10 mg U nivers 10 mg 3-18 by mouth. ity of tablet 00:00: [place] [facility] lisinopriL 2021-0 Yes 10mg Take 10 mg U nivers 10 mg 3-18 by mouth. ity of tablet 00:00: [place] [facility] lisinopriL 2021-0 Yes 10mg Take 10 mg U nivers 10 mg 3-18 by mouth. ity of tablet 00:00: [place] [facility] lisinopriL 2021-0 Yes 10mg Take 10 mg U nivers 10 mg 3-18 by mouth. ity of tablet 00:00: [place] [facility] lisinopriL 2021-0 Yes 10mg Take 10 mg U nivers 10 mg 3-18 by mouth. ity of tablet 00:00: [place] [facility] lisinopriL 2021-0 Yes 10mg Take 10 mg U nivers 10 mg 3-18 by mouth. ity of tablet 00:00: [place] [facility] lisinopriL 2021-0 Yes 10mg Take 10 mg U nivers 10 mg 3-18 by mouth. ity of tablet 00:00: [place] [facility] lisinopriL 2021-0 Yes 10mg Take 10 mg U nivers 10 mg 3-18 by mouth. ity of tablet 00:00: [place] [facility] lisinopriL 2021-0 Yes 10mg Take 10 mg U nivers 10 mg 3-18 by mouth. ity of tablet 00:00: [place] [facility] lisinopriL 2021-0 Yes 10mg Take 10 mg U nivers 10 mg 3-18 by mouth. ity of tablet 00:00: [place] [facility] lisinopriL 2021-0 Yes 10mg Take 10 mg U nivers 10 mg 3-18 by mouth. ity of tablet 00:00: [place] [facility] lisinopriL 2021-0 Yes 10mg Take 10 mg U nivers 10 mg 3-18 by mouth. ity of tablet 00:00: [place] [facility] lisinopriL 2021-0 Yes 10mg Take 10 mg U nivers 10 mg 3-18 by mouth. ity of tablet 00:00: [place] [facility] lisinopriL 2021-0 Yes 10mg Take 10 mg U nivers 10 mg 3-18 by mouth. ity of tablet 00:00: [place] [facility] lisinopriL 2021-0 Yes 10mg Take 10 mg U nivers 10 mg 3-18 by mouth. ity of tablet 00:00: [place] [facility] lisinopriL 2021-0 Yes 10mg Take 10 mg U nivers 10 mg 3-18 by mouth. ity of tablet 00:00: [place] [facility] lisinopriL 2021-0 Yes 10mg Take 10 mg U nivers 10 mg 3-18 by mouth. ity of tablet 00:00: [place] [facility] lisinopriL 2021-0 Yes 10mg Take 10 mg U nivers 10 mg 3-18 by mouth. ity of tablet 00:00: [place] [facility] lisinopriL 2021-0 Yes 10mg Take 10 mg U nivers 10 mg 3-18 by mouth. ity of tablet 00:00: [place] [facility] lisinopriL 2021-0 Yes 10mg Take 10 mg U nivers 10 mg 3-18 by mouth. ity of tablet 00:00: [facility] lisinopriL 2021-0 Yes 10mg Take 10 mg U nivers 10 mg 3-18 by mouth. ity of tablet 00:00: [facility] [place] [facility] lisinopriL 2021-0 Yes 10mg Take 10 mg U nivers 10 mg 3-18 by mouth. ity of tablet 00:00: [facility] lisinopriL 2021-0 Yes 10mg Take 10 mg U nivers 10 mg 3-18 by mouth. ity of tablet 00:00: [facility] lisinopriL 2021-0 Yes 10mg Take 10 mg U nivers 10 mg 3-18 by mouth. ity of tablet 00:00: [facility] lisinopriL 2021-0 Yes 10mg Take 10 mg U nivers 10 mg 3-18 by mouth. ity of tablet 00:00: [facility] lisinopriL 2021-0 Yes 10mg Take 10 mg U nivers 10 mg 3-18 by mouth. ity of tablet 00:00: [facility] lisinopriL 2021-0 Yes 10mg Take 10 mg U nivers 10 mg 3-18 by mouth. ity of tablet 00:00: [facility] lisinopriL 2021-0 Yes 10mg Take 10 mg U nivers 10 mg 3-18 by mouth. ity of tablet 00:00: [facility] lisinopriL 2021-0 Yes 10mg Take 10 mg U nivers 10 mg 3-18 by mouth. ity of tablet 00:00: [facility] lisinopriL 2021-0 Yes 10mg Take 10 mg U nivers 10 mg 3-18 by mouth. ity of tablet 00:00: [facility] lisinopriL 2021-0 Yes 10mg Take 10 mg U nivers 10 mg 3-18 by mouth. ity of tablet 00:00: [facility] lisinopriL 2021-0 Yes 10mg Take 10 mg U nivers 10 mg 3-18 by mouth. ity of tablet 00:00: [facility] lisinopriL 2021-0 Yes 10mg Take 10 mg U nivers 10 mg 3-18 by mouth. ity of tablet 00:00: [facility] lisinopriL 2021-0 Yes 10mg Take 10 mg U nivers 10 mg 3-18 by mouth. ity of tablet 00:00: [facility] lisinopriL 2021-0 Yes 10mg Take 10 mg U nivers 10 mg 3-18 by mouth. ity of tablet 00:00: [facility] lisinopriL 2021-0 Yes 10mg Take 10 mg U nivers 10 mg 3-18 by mouth. ity of tablet 00:00: [facility] lisinopriL 2021-0 Yes 10mg Take 10 mg U nivers 10 mg 3-18 by mouth. ity of tablet 00:00: [facility] lisinopriL 2021-0 Yes 10mg Take 10 mg U nivers 10 mg 3-18 by mouth. ity of tablet 00:00: [facility] lisinopriL 2021-0 Yes 10mg Take 10 mg U nivers 10 mg 3-18 by mouth. ity of tablet 00:00: [facility] lisinopriL 2021-0 Yes 10mg Take 10 mg U nivers 10 mg 3-18 by mouth. ity of tablet 00:00: [facility] lisinopriL 2021-0 Yes 10mg Take 10 mg U nivers 10 mg 3-18 by mouth. ity of tablet 00:00: [facility] lisinopriL 2021-0 Yes 10mg Take 10 mg U nivers 10 mg 3-18 by mouth. ity of tablet 00:00: [facility] lisinopriL 2021-0 Yes 10mg Take 10 mg U nivers 10 mg 3-18 by mouth. ity of tablet 00:00: [facility] lisinopriL 2021-0 Yes 10mg Take 10 mg U nivers 10 mg 3-18 by mouth. ity of tablet 00:00: [facility] lisinopriL 2021-0 Yes 10mg Take 10 mg U nivers 10 mg 3-18 by mouth. ity of tablet 00:00: [facility] lisinopriL 2021-0 Yes 10mg Take 10 mg U nivers 10 mg 3-18 by mouth. ity of tablet 00:00: [facility] lisinopriL 2021-0 Yes 10mg Take 10 mg U nivers 10 mg 3-18 by mouth. ity of tablet 00:00: [facility] lisinopriL 2021-0 Yes 10mg Take 10 mg U nivers 10 mg 3-18 by mouth. ity of tablet 00:00: [place] [facility] lisinopriL 2020-0 Yes 10mg Take 10 mg U nivers 10 mg 3-18 by mouth. ity of tablet 00:00: [place] [facility] lisinopriL 2020-0 Yes 10mg Take 10 mg U nivers 10 mg 3-18 by mouth. ity of tablet 00:00: [place] [facility] lisinopriL 2020-0 Yes 10mg Take 10 mg U nivers 10 mg 3-18 by mouth. ity of tablet 00:00: [place] [facility] lisinopriL 2020-0 Yes 10mg Take 10 mg U nivers 10 mg 3-18 by mouth. ity of tablet 00:00: [address] lisinopriL 2020-0 3- No 10mg Take 1 Univ ers 10 mg 3-18 06-21 tablet by ity of tablet 00:00: 00:00 mouth. [place] 00 :00 [facility] Dose 2020-0 No Unknown 1-21 00:00: 00 Dose 2020-0 No Unknown 1-21 00:00: 00 Zoloft 100 2020-0 No 15mg [...] 0-23 00:00: 00 Dose 2019-1 No Unknown 0-02 00:00: 00 Dose 2019-1 No Unknown 0-02 00:00: 00 Dose 2019-0 No Unknown 9-02 00:00: 00 Dose 2019-0 No Unknown 9-02 00:00: 00 Dose 2019-0 No Unknown 9- 00:00: 00 Dose 2020-0 No Unknown 9- 00:00: 00 Dose 2020-0 No Unknown 9- 00:00: 00 Dose 2020-0 No Unknown 9- 00:00: 00 Zoloft 100 2020-0 No 15mg mg tablet 7-14 00:00: 00 hydroxyzine 2020-0 No 51mg HCl 50 mg 7-14 tablet 00:00: 00 Zoloft 100 2019-0 No 15mg mg tablet 7-14 00:00: 00 [...] 50 mg 3-19 tablet 00:00: 00 Zoloft 2019-0 No 15mg mg tablet 3-10 00:00: 00 hydroxyzine 2020-0 No 51mg HCl 50 mg 3-10 tablet 00:00: 00 Zoloft 2019-0 No 15mg mg tablet 3-10 00:00: 00 hydroxyzine 2020-0 No 51mg HCl 50 mg 3-10 tablet 00:00: 00 Zoloft 2019-0 No 15mg mg tablet 1-23 00:00: 00 hydroxyzine 2020-0 No 51mg HCl 50 mg 1-23 tablet 00:00: 00 Zoloft 2019-0 No 15mg mg tablet 1-23 00:00: 00 hydroxyzine 2020-0 No 51mg HCl 50 mg 1-23 tablet 00:00: 00 Zoloft 2019-0 No 1mg mg tablet 1-10 00:00: 00 Zoloft 100 2019-0 No 1mg mg tablet 1-10 00:00: 00 Zoloft 2018-1 No 1mg mg tablet 1-14 00:00: 00 hydroxyzine 2018-1 No 51mg HCl 50 mg 1-14 tablet 00:00: 00 Zoloft 2018-1 No 1mg mg tablet 1-14 00:00: 00 hydroxyzine 2018-1 No 51mg HCl 50 mg 1-14 tablet [...] Zoloft 100 2019-0 No 1mg mg tablet 4- 00:00: 00 buspirone 2019-0 No 1mg 7.5 [...] 100 mg 9-19 tablet 00:00: 00 sertraline 0 No 15mg 100 mg 9-19 tablet 00:00: 00 sertraline 2015-08 No 15mg 100 mg 2-13 tablet 00:00: 00 prednisone 2015-08 No 1mg 5 mg tablet 2-13 00:00: 00 sertraline 2015-08 No 15mg 100 mg 2-13 tablet 00:00: 00 prednisone 2015-08 No 1mg 5 mg tablet 2-13 00:00: 00 cyclobenzap 2015-08 No 1mg rine 10 mg 2-13 tablet 00:00: 00 cyclobenzap 2015-08 No 1mg rine 10 mg 2-13 tablet 00:00: 00 Immunizations Ordered Filled Immunization Date Status Comments [facility] e Immunization Name Name SARS-COV-2 COVID-19 2020-12-06 Completed Unive rsity of VACCINE - (MODERNA) 00:00:00 [facility] SARS-COV-2 COVID-19 2020-12-06 Completed Unive rsity of VACCINE - (MODERNA) 00:00:00 [facility] SARS-COV-2 COVID-19 2020-12-06 Completed Unive rsity of VACCINE - (MODERNA) 00:00:00 [facility] SARS-COV-2 COVID-19 2020-12-06 Completed Unive rsity of VACCINE - (MODERNA) 00:00:00 [facility] SARS-COV-2 COVID-19 2020-12-06 Completed Unive rsity of VACCINE - (MODERNA) 00:00:00 [facility] SARS-COV-2 COVID-19 2020-12-06 Completed Unive rsity of VACCINE - (MODERNA) 00:00:00 [facility] SARS-COV-2 COVID-19 2020-12-06 Completed Unive rsity of VACCINE - (MODERNA) 00:00:00 [facility] SARS-COV-2 COVID-19 2020-12-06 Completed Unive rsity of VACCINE - (MODERNA) 00:00:00 [facility] SARS-COV-2 COVID-19 2020-12-06 Completed Unive rsity of VACCINE - (MODERNA) 00:00:00 [facility] SARS-COV-2 COVID-19 2020-12-06 Completed Unive rsity of VACCINE - (MODERNA) 00:00:00 [facility] SARS-COV-2 COVID-19 2020-12-06 Completed Unive rsity of VACCINE - (MODERNA) 00:00:00 [facility] SARS-COV-2 COVID-19 2020-12-06 Completed Unive rsity of VACCINE - (MODERNA) 00:00:00 [facility] SARS-COV-2 COVID-19 2020-12-06 Completed Unive rsity of VACCINE - (MODERNA) 00:00:00 [facility] SARS-COV-2 COVID-19 2020-12-06 Completed Unive rsity of VACCINE - (MODERNA) 00:00:00 [facility] SARS-COV-2 COVID-19 2020-12-06 Completed Unive rsity of VACCINE - (MODERNA) 00:00:00 [facility] SARS-COV-2 COVID-19 2020-12-06 Completed Unive rsity of VACCINE - (MODERNA) 00:00:00 [facility] SARS-COV-2 COVID-19 2020-12-06 Completed Unive rsity of VACCINE - (MODERNA) 00:00:00 [facility] SARS-COV-2 COVID-19 2020-12-06 Completed Unive rsity of VACCINE - (MODERNA) 00:00:00 [facility] SARS-COV-2 COVID-19 2020-12-06 Completed Unive rsity of VACCINE - (MODERNA) 00:00:00 [facility] SARS-COV-2 COVID-19 2020-12-06 Completed Unive rsity of VACCINE - (MODERNA) 00:00:00 [facility] SARS-COV-2 COVID-19 2020-12-06 Completed Unive rsity of VACCINE - (MODERNA) 00:00:00 [facility] SARS-COV-2 COVID-19 2020-12-06 Completed Unive rsity of VACCINE - (MODERNA) 00:00:00 [facility] SARS-COV-2 COVID-19 2020-12-06 Completed Unive rsity of VACCINE - (MODERNA) 00:00:00 [facility] SARS-COV-2 COVID-19 2020-12-06 Completed Unive rsity of VACCINE - (MODERNA) 00:00:00 [facility] SARS-COV-2 COVID-19 2020-12-06 Completed Unive rsity of VACCINE - (MODERNA) 00:00:00 [facility] SARS-COV-2 COVID-19 2020-12-06 Completed Unive rsity of VACCINE - (MODERNA) 00:00:00 [facility] SARS-COV-2 COVID-19 2020-12-06 Completed Unive rsity of VACCINE - (MODERNA) 00:00:00 [facility] SARS-COV-2 COVID-19 2020-12-06 Completed Unive rsity of VACCINE - (MODERNA) 00:00:00 [facility] SARS-COV-2 COVID-19 2020-12-06 Completed Unive rsity of VACCINE - (MODERNA) 00:00:00 [facility] SARS-COV-2 COVID-19 2020-12-06 Completed Unive rsity of VACCINE - (MODERNA) 00:00:00 [facility] SARS-COV-2 COVID-19 2020-12-06 Completed Unive rsity of VACCINE - (MODERNA) 00:00:00 [facility] SARS-COV-2 COVID-19 2020-12-06 Completed Unive rsity of VACCINE - (MODERNA) 00:00:00 [facility] SARS-COV-2 COVID-19 2020-12-06 Completed Unive rsity of VACCINE - (MODERNA) 00:00:00 [facility] SARS-COV-2 COVID-19 2020-12-06 Completed Unive rsity of VACCINE - (MODERNA) 00:00:00 [facility] Influenza, 2018-07-25 Completed seasonal, inj 00:00:00 Influenza, 2018-07-25 Completed seasonal, inj 00:00:00 Tdap 2017-04-26 Completed 00:00:00 Influenza, 2017-04-26 Completed seasonal, inj 00:00:00 Tdap 2017-04-26 Completed 00:00:00 Influenza, 2017-04-26 Completed seasonal, inj 00:00:00 Vital Signs Vital Name Observation Time Observation Value Comments Source Systolic blood 2023-01-26 12:00:00 109 mm[Hg] Univer sity of pressure [facility] Diastolic blood 2023-01-26 12:00:00 65 mm[Hg] [facility]ive rsity of [facility] Heart rate 2023-01-26 12:00:00 90 /min [facility] [place] [facility] Body temperature 2023-01-26 12:00:00 36.56 Rivka [facility] [place] [facility] Respiratory rate 2023-01-26 12:00:00 17 /min [facility] Oxygen saturation in 2023-01-26 12:00:00 97 /min [facility] Ar[facility] blood by [place] [facility] P[facility] oximetry [facility] Body height 2023-01-20 11:53:00 152.4 cm [facility] Body weight 2023-01-20 11:53:00 73.029 kg [facility] BMI 2023-01-20 11:53:00 31.44 kg/m2 [facility] [place] [facility] Systolic blood 2023-01-17 10:19:00 126 mm[Hg] Univer sity of pressure [facility] [place] [facility] Diastolic blood 2023-01-17 10:19:00 79 mm[Hg] Unive rsity of pressure [facility] [place] [facility] Heart rate 2023-01-17 10:19:00 81 /min [facility] Body temperature 2023-01-17 10:19:00 37 Rivka [facility] ers[facility] [place] [facility] Respiratory rate 2023-01-17 10:19:00 16 /min [facility] [place] [facility] Body height 2023-01-17 10:19:00 152.4 cm [facility] Body weight 2023-01-17 10:19:00 73.2 kg [facility] BMI 2023-01-17 10:19:00 31.52 kg/m2 [facility] Oxygen saturation in 2023-01-17 10:19:00 93 /min [facility] Arterial blood by [place] [facility] Pulse oximetry Branch Systolic blood 2022-10-21 13:21:00 109 mm[Hg] Univer sity of pressure [facility] Diastolic blood 2022-10-21 13:21:00 77 mm[Hg] Unive rsity of pressure [facility] Heart rate 2022-10-21 13:21:00 84 /min [facility] Body temperature 2022-10-21 13:21:00 36.11 Rivka [facility] Body height 2022-10-21 13:21:00 152.4 cm [facility] [place] [facility] Body weight 2022-10-21 13:21:00 78.971 kg Universi ty [facility] Branch BMI 2022-10-21 13:21:00 34.00 kg/m2 Universi ty [facility] Systolic blood 2022-07-22 22:32:00 120 mm[Hg] Univer sity of pressure [facility] Diastolic blood 2022-07-22 22:32:00 86 mm[Hg] Unive rsity of pressure [facility] Heart rate 2022-07-22 22:32:00 125 /min Universi ty of [facility] Body temperature 2022-07-22 22:32:00 36.17 [facility] Body height 2022-07-22 22:32:00 152.4 cm Universi ty [facility] Body weight 2022-07-22 22:32:00 78.926 kg Universi ty [facility] Branch BMI 2022-07-22 22:32:00 33.98 kg/m2 [facility] ty [facility] BP Systolic 2022-03-01 14:51:00 107 mm[Hg] BP [...] Date / Time Performing Clinician Source Performed CT LUMBAR SPINE WO 2023-01-23 16:22:14 Coleman Wolfe [facility] CONTRAST Medical Branch CT THORACIC SPINE WO 2023-01-23 16:22:14 Coleman Wolfe [facility] CONTRAST Medical Branch BASIC METABOLIC PANEL 2023-01-23 11:36:00 Coleman Wolfe [facility] (NA, K, CL, CO2, Medical Branch GLUCOSE, BUN, CREATININE, CA) CBC WITHOUT DIFF 2023-01-23 11:36:00 Coleman Wolfe [facility] XR SCOLIOSIS SURVEY 2 VW 2023-01-23 02:10:00 Felipe Herzog [facility] DUPLEX VENOUS LEG RIGHT 2023-01-21 13:32:00 [place] [facility] - BY VASCULAR LAB [facility] Branch CBC WITHOUT DIFF 2023-01-20 21:24:00 Russel Albright [facility] D-DIMER 2023-01-20 21:24:00 [place] [facility] PHOSPHORUS 2023-01-19 11:44:00 Yamil [facility] MAGNESIUM 2023-01-19 11:44:00 [facility] 2023-01-19 11:44:00 Yamil [facility] (NA, K, CL, CO2, Medical Branch GLUCOSE, BUN, CREATININE, CA) CBC WITH DIFF 2023-01-19 11:44:00 Yamil [facility] PHOSPHORUS 2023-01-18 10:36:00 Heaven [facility] MAGNESIUM 2023-01-18 10:36:00 Heaven [facility] BASIC METABOLIC PANEL 2023-01-18 10:36:00 Quinton Ayala [facility] (NA, K, CL, CO2, Medical Branch GLUCOSE, BUN, CREATININE, CA) CBC WITH DIFF 2023-01-18 10:36:00 Quinton Ayala [facility] PHOSPHORUS 2023-01-18 10:36:00 Heaven [facility] MAGNESIUM 2023-01-18 10:36:00 [facility] 2023-01-18 10:36:00 Jamie [facility] (NA, K, CL, CO2, Medical Branch GLUCOSE, BUN, CREATININE, CA) CBC WITH DIFF 2023-01-18 10:36:00 Jamie [facility] XR CHEST 1 2023-01-18 03:45:00 Vu, [facility] XR CHEST 1 2023-01-18 03:45:00 Vu, [facility] XR KUB 2023-01-18 03:45:00 Vu, [facility] BASIC METABOLIC PANEL 2023-01-18 03:23:00 , [facility] (NA, K, CL, CO2, Medical Branch GLUCOSE, BUN, CREATININE, CA) CBC WITHOUT DIFF 2023-01-18 03:23:00 Vu, [facility] BASIC METABOLIC PANEL 2023-01-18 03:23:00 Vu, [facility] (NA, K, CL, CO2, Medical Branch GLUCOSE, BUN, CREATININE, CA) CBC WITHOUT DIFF 2023-01-18 03:23:00 , [facility] PREPARE PACKED RBC 2023-01-18 02:43:04 Maritza [facility] PREPARE PACKED RBC 2023-01-18 02:43:04 Maritza [facility] TRANSFUSE PACKED RBC 2023-01-18 01:11:00 Jeffy Delcid [facility] TRANSFUSE PACKED RBC 2023-01-18 01:11:00 Jeffy Delcid [facility] ABG+COOX+NA+K+GLU+CA2+ 2023-01-18 01:00:00 Felipe [facility] ABG+COOX+NA+K+GLU+CA2+ 2023-01-18 01:00:00 [facility] 1 2023-01-18 00:53:00 [facility] SP[facility] THORACIC 2 VW 2023-01-18 00:53:00 Felipe [facility] FL TIME OR 2023-01-18 00:50:39 Mino [facility] (NON-REPORTABLE) Medical Branch [place] TIME OR 2023-01-18 00:50:39 Mino [facility] (NON-REPORTABLE) [facility] ABG+COOX+NA+K+GLU+CA2+ 2023-01-18 00:04:[address] [facility] ABG+COOX+NA+K+GLU+CA2+ 2023-01-18 00:04:00 Felipe Herzog [facility] [place] TIME OR 2023-01-17 23:14:37 Mino [facility] (NON-REPORTABLE) Medical [place] TIME OR 2023-01-17 23:14:37 Mino [facility] (NON-REPORTABLE) [facility] TRANSFUSE PACKED RBC 2023-01-17 23:07:00 Jeffy Delcid [facility] TRANSFUSE PACKED RBC 2023-01-17 23:07:00 Jeffy Delcid [facility] ABG+COOX+NA+K+GLU+CA2+ 2023-01-17 22:58:00 Felipe [facility] ABG+COOX+NA+K+GLU+CA2+ 2023-01-17 22:58:00 [facility] RBC 2023-01-17 22:41:13 Mansi Salas [facility] PREPARE PACKED RBC 2023-01-17 22:41:13 Mansi Salas [facility] ABG+COOX+NA+K+GLU+CA2+ 2023-01-17 21:33:00 [facility] ABG+COOX+NA+K+GLU+CA2+ 2023-01-17 21:33:00 Felipe Herzog Un [facility] [place] [facility] CBC WITHOUT DIFF 2023-01-17 21:25:00 Felipe Herzog [facility] ty of [facility] CBC WITHOUT DIFF 2023-01-17 21:25:00 Felipe Herzog [facility] Branch ABG+COOX+NA+K+GLU+CA2+ 2023-01-17 21:09:00 Felipe Herzog Un [facility] [place] [facility] ABG+COOX+NA+K+GLU+CA2+ 2023-01-17 21:09:00 Felipe Herzog [facility] ABG+COOX+NA+K+GLU+CA2+ 2023-01-17 20:30:00 Felipe Herzog [facility] ABG+COOX+NA+K+GLU+CA2+ 2023-01-17 20:30:00 Felipe Herzog [facility] ABG+COOX+NA+K+GLU+CA2+ 2023-01-17 18:47:00 Felipe Herzog [facility] ABG+COOX+NA+K+GLU+CA2+ 2023-01-17 18:47:00 Felipe Herzog [facility] ABG+COOX+NA+K+GLU+CA2+ 2023-01-17 16:48:00 Felipe Herzog [facility] [place] [facility] ABG+COOX+NA+K+GLU+CA2+ 2023-01-17 16:48:00 Felipe Herzog [facility] ABG+COOX+NA+K+GLU+CA2+ 2023-01-17 15:27:00 Felipe Herzog [facility] ABG+COOX+NA+K+GLU+CA2+ 2023-01-17 15:27:00 Felipe Herzog [facility] LUMBAR DECOMPRESSION 2023-01-17 12:03:00 Felipe Herzog [facility] WITH Medical Branch FUSION/INSTRUMENTATION LUMBAR DECOMPRESSION 2023-01-17 12:03:00 Mino Felipe [facility] WITH Medical Branch FUSION/INSTRUMENTATION HB ABO GROUPING 2023-01-17 10:45:00 Apple Desai [facility] Medical Branch HB ABO GROUPING 2023-01-17 10:45:00 Apple Desai [facility] Medical Branch ASSIGNMENT OF BENEFITS 2023-01-17 10:12:57 Doctor Unassigned, No [facility] Name Medical Branch AUTHORIZATION FOR 2022-11-10 05:01:00 Doctor Unassigned, No [facility] RELEASE OF PHI Name Medical Branch XR CHEST 2 2022-10-28 21:18:07 Roberto Singh [facility] Medical Branch XR SCOLIOSIS SURVEY 2 2022-10-21 14:07:44 Mino [facility] Medical Branch EXTERNAL PROVIDER 2022-10-19 05:01:00 Doctor Unassigned, No [facility] Name Medical Branch REFERRAL- 2022-09-08 06:01:00 Doctor Unassigned, No [facility] REQUEST/RESPONSE Name Medical Branch REFERRAL- 2022-04-22 05:01:00 Doctor Unassigned, No [facility] REQUEST/RESPONSE Name Medical Branch ASSIGNMENT OF BENEFITS 2022-03-23 19:23:08 Doctor Unassigned, No [facility] Medical Branch CONSENT/REFUSAL FOR 2022-03-23 19:22:45 Doctor Unassigned, No [facility] DIAGNOSIS AND TREATMENT Name Medical Branch EXTERNAL PROVIDER 2022-03-11 05:01:00 Doctor Unassigned, No [facility] RECORDS Name Medical Branch MR THORACIC SPINE WO 2022-03-10 22:08:00 [place] [facility] [place] CONTRAST Medical Branch MR LUMBAR SPINE WO 2022-03-10 22:03:42 [place] [facility] CONTRAST Medical Branch MR CERVICAL SPINE WO 2022-03-10 21:26:19 [place] [facility] CONTRAST Medical Branch DEXA AXIAL (HIP AND 2022-03-10 20:09:14 [place] [facility] Medical Branch DISCLOSURE AND CONSENT, 2022-02-26 05:01:00 Doctor Unassigned, N o [facility] MEDICAL AND SURGICAL Name Medical [facility] PROCEDURES Plan of Care Planned Activity Planned Date Details Comments Source Medication 2023-01-27 oxyCODONE CR [facility] 01:00:00 (oxyCONTIN CR) 12 hr Medical Branch tablet 10 mg [code = 1313914] Goal Plan of Care Note [code = 68259-9] Goal Plan of Care Note [code = 55972-4] Goal Plan of Care Note [code = 39867-2] Goal Plan of Care Note [code = 06759-3] Goal Plan of Care Note [code = 21414-5] Goal Plan of Care Note [code = 71564-6] Goal Plan of Care Note [code = 88384-7] Goal Plan of Care Note [code = 53882-5] Goal Plan of Care Note [code = 02479-0] Goal Plan of Care Note [code = 55592-0] Goal Plan of Care Note [code = 92957-9] Goal Plan of Care Note [code = 71806-2] Goal Plan of Care Note [code = 66415-5] Goal Plan of Care Note [code = 35110-7] Goal Plan of Care Note [code = 98097-5] Goal Plan of Care Note [code = 56879-9] Goal Plan of Care Note [code = 77445-4] Goal Plan of Care Note [code = 87036-5] Goal Plan of Care Note [code = 95849-4] Goal Plan of Care Note [code = 65121-8] Goal Plan of Care Note [code = 83329-0] Goal Plan of Care Note [code = 10574-2] Goal Plan of Care Note [code = 07663-2] Goal Plan of Care Note [code = 97196-1] Goal Plan of Care Note [code = 00262-7] Goal Plan of Care Note [code = 91287-7] Goal Plan of Care Note [code = 26557-2] Goal Plan of Care Note [code = 32559-2] Goal Plan of Care Note [code = 50366-7] Goal Plan of Care Note [code = 92627-5] Goal Plan of Care Note [code = 96142-3] Goal Plan of Care Note [code = 00480-4] Goal Plan of Care Note [code = 47695-6] Goal Plan of Care Note [code = 20835-7] Goal Plan of Care Note [code = 91460-6] Goal Plan of Care Note [code = 88841-5] Goal Plan of Care Note [code = 59539-7] Goal Plan of Care Note [code = 30235-6] Goal Plan of Care Note [code = 58888-0] Goal Plan of Care Note [code = 12268-5] Goal Plan of Care Note [code = 52621-3] Goal Plan of Care Note [code = 97764-6] Goal Plan of Care Note [code = 70055-8] Goal Plan of Care Note [code = 81899-7] Goal Plan of Care Note [code = 75516-6] Goal Plan of Care Note [code = 38300-1] Goal Plan of Care Note [code = 36063-7] Goal Plan of Care Note [code = 21022-1] Goal Plan of Care Note [code = 86087-7] Goal Plan of Care Note [code = 47182-4] Goal Plan of Care Note [code = 39982-6] Goal Plan of Care Note [code = 41080-5] Goal Plan of Care Note [code = 20122-9] Goal Plan of Care Note [code = 30921-1] Goal Plan of Care Note [code = 43070-9] Encounters Start End Encounter Admission Attending Care Care Encounter Source Date/Time Date/Time Type Type Clinicians Facility Department ID 2023-02-23 2023-02-23 [id number] [facility] 15:00:00 15:00:00 00 dennise Dela Cruz 2023-02-23 2023-02-23 [facility] [id number] Memoria 15:00:00 15:00:00 00 dennise Dela Cruz 2023-01-17 2023-01-26 Inpatient R DEANAYONGJOSUEMENDEZ [facility] SOR [id number] Univers 05:13:00 14:00:00 FELIPE [facility] 2023-01-17 2023-01-26 [facility] Mino HENRIQUE 1.2.840.114 1 [id number] Univers 05:13:00 14:00:00 Encounter , Felipe VICKY 350.1.13.10 ity of HOSPITAL 4.2.7.2.686 [place] as [phone] [facility] [address] 2023-01-17 2023-01-17 Surgery Mino DUENAS 1.2.840.114 10 [id number] Univers 07:00:00 15:50:00 , Felipe VICKY 350.1.13.10 it y of HOSPITAL 4.2.7.2.686 [place] as [id number] [facility] [address] 2023-01-17 2023-01-17 Orders Doctor NICOLE 1.2.840.114 [id number] Univers 00:00:00 00:00:00 Only Unassigned, VICKY 350.1.13.10 ity of [place] [facility] 4.2.7.2.686 Neal as 114.9076438 [facility] [address] 2023-01-03 2023-01-03 Prep For Mino RIVERA 1.2.840.114 1 [id number] Univers 00:00:00 00:00:00 Surgery , Felipe VICKY 350.1.13.10 it y of HOSPITAL 4.2.7.2.686 [place] 369.7556326 [facility] [address] 2022-12-06 2022-12-06 [facility] 1.2.840.114 [id number] Univers 00:00:00 00:00:00 , Felipe SPECIALTY 350.1.13.10 [place] [phone] Il judith BEAULIEU [address] [facility] 2022-11-10 2022-11-10 Telephone Nikkimendez [facility] 1.2.840.114 [id number] Univers 00:00:00 00:00:00 , Felipe SPECIALTY 350.1.13.10 [place] [phone] Il judith BEAULIEU [address] [facility] 2022-11-10 2022-11-10 Orders Doctor RIVERA 1.2.840.114 [id number] Univers 00:00:00 00:00:00 Only Unassigned, VICKY 350.1.13.10 ity of [place] [facility] 4.2.7.2.686 Neal as 171.5433653 [facility] [address] 2022-11-04 2022-11-04 Telephone [facility] 1.2.840.114 [id number] Univers 00:00:00 00:00:00 , Felipe SPECIALTY 350.1.13.10 ity of [facility] [place].2.[place] [phone] Il judith SALINASY [address] [facility] 2022-11-02 2022-11-02 Telephone [facility] 1.2.840.114 [id number] Univers 00:00:00 00:00:00 , Felipe SPECIALTY 350.1.13.10 ity of [facility] 4.2.7.2.[place] [phone] Il judith SALINAS [address] [facility] 2022-10-28 2022-10-28 Outpatient R [facility] [id number] Univers 15:56:01 23:59:00 , FELIPE ity of [facility] 2022-10-28 2022-10-28 [facility] 1.2.840.114 1 [id number] Univers 15:56:01 23:59:00 Encounter Felipe 350.1.13.10 ity of [place] [id number] [facility] [address] [place] 2022-10-28 2022-10-28 Outpatient R ALEX [facility] [id number] Univers 14:30:00 15:56:16 NADEEM ity of [facility] 2022-10-28 2022-10-28 Ancillary Georgina Molina [facility] 1 .2.840.114 [id number] Univers 14:30:00 15:56:16 Visit Nadeem Salmeron 350.1.13.10 ity of [place].2.[place] [facility] [phone] Il judith DOYLE 179 [facility] 2022-10-28 2022-10-28 Telephone [facility] 1.2.840.114 [id number] Univers 00:00:00 00:00:00 , Felipe SPECIALTY 350.1.13.10 it[place] [id number] Il judith BEAULIEU [address] [facility] 2022-10-25 2022-10-25 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 1.2.840.114 10 [id number] Univers 11:30:00 11:45:00 Visit Mino Felipe SPECIALTY 350.1.13. 10 it[place] [id number] Il judith BEAULIEU [address] [facility] 2022-10-25 2022-10-25 Outpatient R [facility] 351 [id number] Univers 11:30:00 11:30:00 , FELIPE ity [facility] 2022-10-21 2022-10-21 [facility] 1.2.840.114 1 [id number] Univers 08:04:42 23:59:00 Encounter , Felipe SPECIALTY 350.1.13.10 it[place] [phone] Il judith BEAULIEU [address] [facility] 2022-10-21 2022-10-21 Outpatient R [facility] 112 [id number] Univers 08:15:00 10:08:14 , FELIPE ity [facility] 2022-10-21 2022-10-21 Office [facility] 1.2.840.114 10 [id number] Univers 08:15:00 10:08:14 Visit , Felipe SPECIALTY 350.1.13.10 it[place] [phone] Il judith BEAULIEU [address] [facility] 2022-10-21 2022-10-21 [facility] 1.2.840.114 1 [id number] Univers 00:00:00 00:00:00 , Felipe SPECIALTY 350.1.13.10 it[place] 4.2.[place].2.[place] [phone] Il judith BEAULIEU [address] [facility] 2022-10-19 2022-10-19 Orders Doctor NICOLE 1.2.840.114 [id number] Univers 00:00:00 00:00:00 Only Unassigned, VICKY 350.1.13.10 ity of [place] [facility] 4.2.7.2.686 [place] as [phone] [address] 2022-10-14 2022-10-14 Outpatient R [facility] [id number] Univers 16:30:00 17:13:41 , FELIPE ity of [facility] 2022-10-14 2022-10-14 Telemedici [facility] 1.2.840.114 [id number] Univers 16:30:00 17:13:41 ne Visit , Felipe SPECIALTY 350.1.13.10 it[place]2.[place] [phone] Il judith BEAULIEU [address] [place] [address] 2022-10-13 2022-10-13 Telephone [facility] 1.2.840.114 [id number] Univers 00:00:00 00:00:00 , Felipe SPECIALTY 350.1.13.10 it[place].2.[place] [phone] Il judith BEAULIEU [address] [place] [address] 2022-10-07 2022-10-07 Telephone [facility] 1.2.840.114 [id number] Univers 00:00:00 00:00:00 , Felipe SPECIALTY 350.1.13.10 ity [place] [phone] Il judith BEAULIEU [address] [place] [address] 2022-10-05 2022-10-05 Telephone [facility] 1.2.840.114 [id number] Univers 00:00:00 00:00:00 , Felipe SPECIALTY 350.1.13.10 ity [place] 4.2.[place].2.[place] [phone] Il judith BEAULIEU [address] [place] [address] 2022-09-23 2022-09-23 Telephone [facility] 1.2.840.114 [id number] Univers 00:00:00 00:00:00 , Felipe SPECIALTY 350.1.13.10 [place] [phone] Il judith BEAULIEU [address] [facility] 2022-09-16 2022-09-16 Telephone Mino [facility] 1.2.840.114 [id number] Univers 00:00:00 00:00:00 , Felipe SPECIALTY 350.1.13.10 it[place] 4[place].2.[place] [id number] Il judith BEAULIEU [address] [facility] 2022-09-08 2022-09-08 Orders Doctor NICOLE 1.2.840.114 [id number] Univers 00:00:00 00:00:00 Only Unassigned, VICKY 350.1.13.10 ity of [place] [facility] 4.2.7.2.686 [place] as [id number] [address] 2022-09-07 2022-09-07 Outpatient Laurie CAPELLAN [facility] [id number] Univers 10:00:00 10:00:00 WEN ity o f [facility] 2022-08-23 2022-08-23 Telephone Myles [facility] 1.2.840.114 [id number] Univers 00:00:00 00:00:00 [facility] 350.1.13.10 i ty [place] CL[place]ICS [place].2.[place] [phone] [address] 2022-08-17 2022-08-17 Outpatient Laurie SABA [facility] [id number] Univers 13:30:00 13:30:00 COLLEEN ity [facility] 2022-08-16 2022-08-16 Telephone Berenice [facility] 1.2.840.114 [id number] Univers 00:00:00 00:00:00 [facility] 350.1.13.10 i ty of CL[place]ICS [place].2.[place] [id number] [address] 2022-08-09 2022-08-09 Outpatient [facility] [id number] Univers 15:15:00 15:15:00 NATE ity [facility] 2022-07-22 2022-07-22 [facility] 1.2.840.114 9 [id number] Univers 17:45:53 23:59:00 Encounter , Felipe SPECIALTY 350.1.13.10 it[place] C[place].2.[place] [phone] Il judith SALINASY [address] [facility] 2022-07-22 2022-07-22 [facility] 1.2.840.114 [id number] Univers 17:38:15 17:44:00 Encounter , Felipe SPECIALTY 350.1.13.10 it[place] 4.2[place].2.[place] [phone] Il dickarissa SALINASY [address] [facility] 2022-07-22 2022-07-22 Outpatient R [facility] [id number] Univers 00:00:00 17:44:00 , FELIPE ity of [facility] 2022-07-22 2022-07-22 Office [facility] 1.2.840.114 [id number] [facility] 16:30:00 16:45:00 Visit , Felipe SPECIALTY 350.1.13.10 it[place]2.[place] [phone] Il dickarissa BEAULIEU [address] [facility] 2022-07-20 2022-07-20 Telephone [facility] 1.2.840.114 [id number] Univers 00:00:00 00:00:00 , Felipe SPECIALTY 350.1.13.10 ity [place] C[place] 4.2.7.2.[place] [phone] Il dickarissa SALINASY [address] [facility] 2022-07-15 2022-07-15 Telephone [facility] 1.2.840.114 [id number] Univers 00:00:00 00:00:00 , Felipe SPECIALTY 350.1.13.10 ity [place].2[place].2.[place] [phone] Il dickarissa SALINASY [address] [facility] 2022-07-08 2022-07-08 Outpatient R [facility] [id number] Univers 13:45:00 13:45:00 , FELIPE ity of [facility] 2022-07-07 2022-07-07 Outpatient R TIMI [facility] [id number] Univers 13:00:00 13:00:00 CHILVANA ity o f [facility] 2022-06-03 2022-06-03 Outpatient R CECELIA MOODY [facility] 10 [id number] Univers 14:00:00 14:00:00 CECELIA MOODY i ty of [facility] 2022-06-03 2022-06-03 Outpatient R SOHAN MOODYWN [facility] 10 [id number] Univers 14:00:00 14:00:00 CECELIA MOODY i ty [facility] 2022-04-30 2022-04-30 Telephone [facility] 1.2.840.114 [id number] Univers 00:00:00 00:00:00 , Felipe SPECIALTY 350.1.13.10 it[place]2.[place] [phone] Il judith BRADNeva [address] [place] [address] 2022-04-22 2022-04-22 Orders Doctor NICOLE 1.2.840.114 [id number] Univers 00:00:00 00:00:00 Only Unassigned, VICKY 350.1.13.10 ity of [place] [facility] 4.2.7.2.686 [place] as [id number] [address] 2022-04-19 2022-04-19 Telephone [facility] 1.2.840.114 [id number] Univers 00:00:00 00:00:00 , Felipe SPECIALTY 350.1.13.10 ity [place] C[place].2[place].2.[place] [phone] Il judith BRADNeva [address] [place] [address] 2022-04-07 2022-04-07 Outpatient R RADIOLOGY [facility] [id number] Univers 00:00:00 00:00:00 ity of [facility] 2022-03-25 2022-03-25 Ict Support And Test Engineers Test, [facility] Pulmonary Function [facility] 1.2.840.114 [id number] Univers 08:00:00 09:00:00 Visit Unknown, Attending MULTISPEC 350.1.13. 10 ity of IALTY 4.2.7.2.686 [facility] [phone] [facility] AND [facility] [address] [facility] 2022-03-25 2022-03-25 Outpatient R UNKNOWN, [facility] [id number] Univers 08:00:00 08:00:00 ATTENDING ity of [facility] 2022-03-24 2022-03-24 Outpatient R [facility] [id number] Univers 08:00:00 08:00:00 ity of [facility] 2022-03-24 2022-03-24 Outpatient R [facility] [id number] Univers 08:00:00 08:00:00 ity [facility] 2022-03-23 2022-03-23 Laboratory Only, Adc Test [facility] 1.2.840. 114 [id number] Univers 14:00:00 14:15:00 Only Lena Quinones 350.1.13.10 ity of [place] 4.2.7.2.686 [facility] [id number] [facility] [address] 2022-03-23 2022-03-23 Outpatient R JONI [facility] [id number] Univers 14:00:00 14:00:00 [facility]23 2022-03-23 Orders Doctor NICOLE 1.2.840.114 [id number] Univers 00:00:00 00:00:00 Only Unassigned, VICKY 350.1.13.10 ity of [place] [facility] 4.2.7.2.686 [facility] [phone] [facility] [address] 2022-03-16 2022-03-16 Outpatient R [facility] [id number] Univers 13:00:00 13:00:00 ity of [facility] 2022-03-11 2022-03-11 Telemedici Mino [facility] 1.2.840.114 [id number] Univers 16:30:00 16:45:00 ne Visit , Felipe SPECIALTY 350.1.13.10 ity of CARE 4.2.7.2.686 [facility] AT [phone] Il dical VI[address] 2022-03-11 2022-03-11 Outpatient R [facility] [id number] Univers 16:30:00 16:30:00 , FELIPE ity of [facility] 2022-03-11 2022-03-11 Orders Doctor NICOLE 1.2.840.114 [id number] Univers 00:00:00 00:00:00 Only Unassigned, VICKY 350.1.13.10 ity of [place] [facility] 4.2.7.2.686 [place] as [phone] [address] 2022-03-11 2022-03-11 Telephone Shalom [facility] 1.2.948.844 [id number] Univers 00:00:00 00:00:00 Bettie NG 350.1.13.10 i ty [place].2.[place] [phone] Il dical NAL 296 [facility] 2022-03-10 2022-03-10 [facility] 1.2.840.114 [id number] Univers 15:11:33 23:59:00 Encounter , Felipe Y HEALTH 350.1.13.10 ity of CL[place]2.[place].2.[place] [phone] [facility] [address] 2022-03-10 2022-03-10 [facility] 1.2.840.114 [id number] Univers 15:11:05 23:59:00 Encounter , Felipe Y HEALTH 350.1.13.10 ity of CL[place].2.7.2.[place] [id number] [place] [address] [place] 2022-03-10 2022-03-10 [facility] 1.2.840.114 [id number] Univers 15:00:00 15:10:00 Encounter , Felipe Y HEALTH 350.1.13.10 it[place].2.[place] [id number] [address] 2022-03-10 2022-03-10 Outpatient R [facility] [id number] Univers 14:50:03 14:59:00 , FELIPE ity of [facility] 2022-03-10 2022-03-10 Hospital [facility] 1.2.840.114 [id number] Univers 14:45:00 14:59:00 Encounter , Felipe Y HEALTH 350.1.13.10 ity of CL[place] [id number] [facility] [address] 2022-03-09 2022-03-09 Telephone [facility] 1.2.840.114 [id number] Univers 00:00:00 00:00:00 , Felipe SPECIALTY 350.1.13.10 it[place]2.[place] [phone] Il judith BEAULIEU [address] [place] [address] 2022-03-08 2022-03-08 Telephone [facility] 1.2.840.114 [id number] Univers 00:00:00 00:00:00 , Felipe SPECIALTY 350.1.13.10 it[place].2.[place] 364.3031760 Il judith BEAULIEU [address] [place] [address] 2022-03-03 2022-03-03 Outpatient R [facility] [id number] Univers 13:00:00 13:00:00 ity of [facility] 2022-03-01 2022-03-01 Outpatient [id number] 00:00:00 00:00:00 Visit [id number] 2367-07-25 2022-03-01 Letter Testing, [facility] 1.2.840.114 [id number] Univers 00:00:00 00:00:00 (Out) [facility] Y HEALTH 350.1.13.10 i ty of Pulmonary CLINICS [place].2.[place] 264.8810484 Med ical [address] [place] 2022-02-26 2022-02-26 Orders Doctor NICOLE 1.2.840.114 [id number] Univers 00:00:00 00:00:00 Only Unassigned, VICKY 350.1.13.10 ity of [place] [facility] 4.2.7.2.686 Neal as 635.1044136 [facility] [address] 2022-02-25 2022-02-25 Telephone [facility] 1.2.840.114 [id number] Univers 00:00:00 00:00:00 , Felipe SPECIALTY 350.1.13.10 it[place] [phone] [employer] [address] [facility] 2022-02-23 2022-02-23 Office Fellow, Pulmonary [facility] 1.2.84 0.114 [id number] Univers 08:00:00 09:00:00 Visit Sun Mack [facility] 350.1. 13.10 ity of CL[place] [id number] [facility] [address] 2022-02-23 2022-02-23 Outpatient Laurie MACK [facility] [id number] Univers 08:00:00 08:00:00 SUN corbin [facility] 2022-02-16 2022-02-16 [facility] [id number] Univers 13:00:00 13:00:00 NATE [facility] 2022-02-10 2022-02-10 Outpatient R [facility] [id number] Univers 00:00:00 00:00:00 , FELIPE [facility] 2022-02-10 2022-02-10 Outpatient R [facility] [id number] Univers 00:00:00 00:00:00 , FELIPE [facility] 2022-02-09 2022-02-09 Outpatient [id number] 00:00:00 00:00:00 Visit [id number] [id number] 2022-02-05 2022-02-05 Outpatient Laurie MACK [facility] [id number] Univers 09:00:00 09:00:00 SUN corbin [facility] 2022-02-05 2022-02-05 Outpatient R ELVIA [facility] [id number] Univers 09:00:00 09:00:00 SUN murcia o shaquille [facility] 2022-01-18 2022-01-18 Outpatient R MINO [facility] [id number] Univers 00:00:00 00:00:00 , FELIPE murcia [facility] 2022-01-18 2022-01-18 Outpatient R MINO [facility] [id number] Univers 00:00:00 00:00:00 , FELIPE murcia [facility] 2022-01-18 2022-01-18 Outpatient R MINO [facility] [id number] Univers 00:00:00 00:00:00 , FELIPE murcia [facility] 2022-01-05 2022-01-05 [facility] [id number] Univers 16:00:00 16:00:00 NATEORI murcia [facility] 2022-01-05 2022-01-05 Out[facility] [id number] Univers 16:00:00 16:00:00 NATE [facility] 2021-12-29 2021-12-29 Telephone [facility] 1.2.840.114 [id number] Univers 00:00:00 00:00:00 , Felipe SPECIALTY 350.1.13.10 ity of CARE 4.2.7.2.686 [facility] AT [phone] Il judith BEAULIEU [address] [place] [address] 2021-12-29 2021-12-29 Telephone [facility] 1.2.840.114 [id number] Univers 00:00:00 00:00:00 , Felipe SPECIALTY 350.1.13.10 ity of CARE 4.2.7.2.686 [facility] AT [id number] [facility] [address] 2021-12-23 2021-12-23 Telephone [facility] 1.2.840.114 [id number] Univers 00:00:00 00:00:00 , Felipe SPECIALTY 350.1.13.10 [place] [id number] Il judith BEAULIEU [address] [facility] 2021-12-17 2021-12-17 [facility] [id number] Univers 13:46:31 23:59:00 , FELIPE ity [facility] 2021-12-17 2021-12-17 Hospital [facility] 1.2.840.114 [id number] Univers 13:46:31 23:59:00 Encounter , Felipe SPECIALTY 350.1.13.10 [place] [phone] Il judith BEAULIEU [address] [facility] 2021-12-17 2021-12-17 Outpatient R [facility] [id number] Univers 13:46:31 23:59:00 , FELIPE ity [facility] 2021-12-17 2021-12-17 [employer]ct Support [employer] Vls-Lab [facility] 1.2.840.114 [id number] Univers 16:45:00 17:00:00 Visit Keith Herzogya SPECIALTY 350.1.13. 10 [place] [phone] Il judith BEAULIEU [address] [facility] 2021-12-17 2021-12-17 Outpatient R [facility] [id number] Univers 13:45:00 16:36:26 , FELIPE ity [facility] 2021-12-17 2021-12-17 Outpatient R [facility] [id number] Univers 13:45:00 16:36:26 , FELIPE ity [facility] 2021-12-17 2021-12-17 Office [facility] 1.2.840.114 [id number] Univers 13:45:00 16:36:26 Visit , Felipe SPECIALTY 350.1.13.10 [place] [id number] Il judith BEAULIEU [address] [facility] 2021-12-17 2021-12-17 Outpatient R NIKKIMENDEZ [facility] [id number] Univers 13:45:00 16:36:26 , FELIPE ity [facility] 2021-12-17 2021-12-17 Office [facility] 1.2.840.114 [id number] Univers 13:45:00 16:36:26 Visit , Felipe SPECIALTY 350.1.13.10 it[place] AT [id number] [address] 2021-12-17 2021-12-17 Outpatient R NIKKIMENDEZ [facility] [id number] Univers 13:45:00 13:45:00 , FELIPE itneva [facility] 2021-11-17 2021-11-17 Orders Doctor NICOLE Yusuf2.840.114 [id number] Univers 00:00:00 00:00:00 Only Unassigned, VICKY 350.1.13.10 ity of [facility] 4.2.7.2.686 [place] as [phone] [address] 2021-11-04 2021-11-04 Orders Doctor NICOLE Goncalves.2.840.114 [id number] Univers 00:00:00 00:00:00 Only Unassigned, VICKY 350.1.13.10 ity of [facility] 4.2.7.2.686 [place] as [phone] [address] 2021-10-19 2021-10-19 Orders Doctor NICOLE Goncalves.2.840.114 [id number] Univers 00:00:00 00:00:00 Only Unassigned, VICKY 350.1.13.10 ity of [facility] 4.2.7.2.686 [place] as [phone] [address] 2021-04-10 2021-04-10 Outpatient R TIMI [facility] [id number] Univers 10:00:00 10:00:00 PAGE murcia [facility] 2021-04-10 2021-04-10 Orders Doctor NICOLE Yusuf2.840.114 [id number] Univers 00:00:00 00:00:00 Only Unassigned, VICKY 350.1.13.10 ity of [facility] 4.2.7.2.686 [place] [phone] [facility] [address] 2021-04-09 2021-04-09 Emergency [facility] 1.2.840.114 [id number] Univers 15:40:00 17:13:00 Junior Ng 350.1.13.10 i ty of [place]7.2.686 [place] [facility] [phone] [facility] [address] 2021-04-09 2021-04-09 Emergency X [facility] ERT [id number] Univers 15:27:00 15:27:00 JUNIOR [facility] 2020-06-27 2020-06-27 Outpatient G_Pappas [facility] [id number] [place] 12:50:00 12:50:00 120 [facility] Results Test Description Test Time Test Comments Results Result Comments Source D-DIMER 2023-01-20 21:55:34 Test Item Value Reference Range Interpretation Comme nts D-DIMER (test code = 1.08 See_Comment H [Autom ated message] The [id number]) system which ge nerated this result tra nsmitted reference range : <0.50 ?g/mL (FEU). Th e reference range was not used to interpr et this result as normal/abnormal . JULI (test code = JULI) This test may be used in conjunction with a clinical pretest probability (PTP) assessment model to exclude venous thromboembolism (VTE) in patients suspected of deep venous thrombosis (DVT) and pulmonary embolism (PE) A D-Dimer value less than 0.50 ?g/ml (FEU) has a negative predicative value of 96 to 100% (95% CI)and 97 to 100% (95% CI) as an aid in the diagnosis of deep vein thrombosis (DVT) and pulmonary embolism when there is low or moderate pretest probability of PE or DVT. D-Dimer values are expressed in initial fibrinogen equivalent units (FEU)" The assay results should be used with other information, including the clinical context, in forming a diagnosis. Lab Interpretation Abnormal (test code = 14412-5) [id number] 21:55:14 Test Item Value Reference Range Interpretation Comments WBC (test code = 6690-2) 11.37 See_Comment H [A utomated message] The system [employer] generated this result transmit paige reference range : 4.30 - 11.10 10*3/?L. The reference range was not used to interpret this result as normal/abnormal . RBC (test code = 789-8) 2.56 See_Comment L [Au tomated message] The system [employer] generated this result transmit paige reference range : 3.93 - 5.25 10* 6/?L. The reference r prasanth was not used to interpret this result as normal/abnormal . HGB (test code = 718-7) 7.6 g/dL 11.6-15.0 L HCT (test code = 4544-3) 23.1 % 35.7-45.2 L MCH (test code = 785-6) 29.7 pg 25.9-32.8 MCV (test code = 787-2) 90.2 fL 80.6-95.5 MCHC (test code = 786-4) 32.9 g/dL 31.6-35.1 PLT (test code = 777-3) 217 See_Comment [Au tomated message] The system [employer] generated this result transmit paige reference range : 166 - 358 10*3/?L. The reference range was not used to interpret this result as normal/abnormal . MPV (test code = 11.1 fL 9.5-12.9 87208-8) RDW-CV (test code = 15.3 % 12.0-15.5 788-0) RDW-SD (test code = 49.4 fL 39.0-49.9 63933-7) NRBC x10^3 (test code = 0.02 See_Comment [Au tomated message] 7002736025) The system [employer] generated this result transmit paige reference range : 10*3/?L. The reference range was not used to interpret this result as normal/abnormal . NRBC/100 WBC (test code 0.2 See_Comment [Au tomated message] = 8387211209) The system [facility] generated this result transmit paige reference range : 0.0 - 10.0 /100 WBC s. The reference r prasanth was not used to interpret this result as normal/abnormal . IPF % (test code = 3507864102) Lab Interpretation (test Abnormal code = 17559-4) [facility] METABOLIC PANEL (NA, K, CL, CO2, GLUCOSE, BUN, CREATININE, CA)2023-01-19 12:17:50 Test Item Value Reference Range Interpretation Comments NA (test code = 135 mmol/L 135-145 9041128244) K (test code = 3.9 mmol/L 3.5-5.0 4170749792) CL (test code = 106 mmol/L 98-108 2503716045) CO2 TOTAL (test code = 25 mmol/L 23-31 1934760397) AGAP (test code = 4 2-16 0196691734) BUN (test code = 9 mg/dL 7-23 7057309581) GLUCOSE (test code = 109 mg/dL 70-110 5900936672) CREATININE (test code = 0.57 mg/dL 0.50-1.04 9845616564) CALCIUM (test code = 7.4 mg/dL 8.6-10.6 L 9460410523) eGFR (test code = 111.8 mL/min/1.73m2 3614952340) JULI (test code = JULI) Association of Glomerular Filtration Rate (GFR) and Staging of Kidney Disease* + --+ --+ ------+| GFR (mL/min/1.73 m2) ?| With Kidney Damage ?| ?Without Kidney Damage+ --------+ --------+ +| ?>90 ?| ?Stage one ?| ? Normal ?+ ---+ ---+ -------+| ?60-89 ?| ?Stage two ?| ? Decreased GFR ? + --+ --+ ------+| ?30-59 ?| ?Stage three ?| ? Stage three ? + --+ --+ ------+| ?15-29 ?| ?Stage four ? | ? Stage four ?+ ---+ ---+ -------+| ?<15 (or dialysis) ? ?| ?Stage five ? | ? Stage five ?+ ---+ ---+ -------+ *Each stage assumes the associated GFR level has been in effect for at least three months. ?Stages 1 to 5, with or without kidney disease, indicate chronic kidney disease. Notes: Determination of stages one and two (with eGFR >59mL/min/1.73 m2) requires estimation of kidney damage for at least three months as defined by structural or functional abnormalities of the kidney, manifested by either:Pathological abnormalities or Markers of kidney damage (including abnormalities in the composition of the blood or urine or abnormalities in imaging tests). Lab Interpretation Abnormal (test code = 28367-2) [facility] Test Item Value Reference Range Interpretation Comments MAGNESIUM (test code = 9771871968) 2.1 mg/dL 1.7-2.4 Lab Interpretation (test code = Normal 33587-4) [facility] 12:17:50 Test Item Value Reference Range Interpretation Comments PHOSPHORUS (test code = 5007900871) 2.2 mg/dL 2.5-5.0 L Lab Interpretation (test code = Abnormal 66978-1) [facility] WITH [id number] 12:01:08 Test Item Value Reference Range Interpretation Comments WBC (test code = 14.40 See_Comment H [Automated 6690-2) message] The system which generated this result transmit paige reference range : 4.30 - 11.10 10*3/?L. The reference range was not used to interpret this result as normal/abnormal . RBC (test code = 2.76 See_Comment L [Automated 399-8) message] The system which generated this result transmit paige reference range : 3.93 - 5.25 10*6/?L. The reference range was not used to interpret this result as normal/abnormal . HGB (test code = 8.3 g/dL 11.6-15.0 L 718-7) HCT (test code = 24.5 % 35.7-45.2 L 4544-3) MCV (test code = 88.8 fL 80.6-95.5 787-2) MCH (test code = 30.1 pg 25.9-32.8 785-6) MCHC (test code = 33.9 g/dL 31.6-35.1 786-4) RDW-SD (test code = 50.0 fL 39.0-49.9 H 52775-4) RDW-CV (test code = 15.6 % 12.0-15.5 H 788-0) PLT (test code = 177 See_Comment [Automated 777-3) message] The system which generated this result transmit paige reference range : 166 - 358 10*3/ ?L. The reference range was not u sed to interpret th is result as normal/abnormal . MPV (test code = 11.4 fL 9.5-12.9 97156-5) NRBC/100 WBC (test 0.0 See_Comment [Automat ed code = 9739314551) message] The system which generated this result transmit paige reference range : 0.0 - 10.0 /100 WBCs. The reference range was not used to interpret this result as normal/abnormal . NRBC x10^3 (test code See_Comment [Auto mated = 5907089204) message] The system which generated this result transmit paige reference range : 10*3/?L. The reference range was not used to interpret this result as normal/abnormal . GRAN MAT (NEUT) % 82.1 % (test code = 770-8) IMM GRAN % (test code 0.60 % = 8140291151) LYMPH % (test code = 9.4 % 736-9) MONO % (test code = 7.4 % 5905-5) EOS % (test code = 0.4 % 713-8) BASO % (test code = 0.1 % 706-2) GRAN MAT x10^3(ANC) 11.83 10*3/uL 1.88-7.09 H (test code = 7528610107) IMM GRAN x10^3 (test 0.08 10*3/uL 0.00-0.06 H code = 6254354807) LYMPH x10^3 (test code 1.35 10*3/uL 1.32-3.29 = 731-0) MONO x10^3 (test code 1.06 10*3/uL 0.33-0.92 H = 742-7) EOS x10^3 (test code = 0.06 10*3/uL 0.03-0.39 711-2) BASO x10^3 (test code 0.01-0.07 = 704-7) Lab Interpretation Abnormal (test code = 82946-0) [facility] Packed RBC (in units), 2 Units 2023-01-18 02:43:04 Test Item Value Reference Range Interpretation Comments Cross Match Result Compatible (test code = 4409) ISBT Blood Type Code 6200 (test code = 820814) Unit Blood Type (test A Pos code = 4410) Unit Number (test [id number] code = 4411) Blood Expiration Date & Time (test code = 280612) Status Information Returned from (test code = 4412) Issue Product Red Blood Cells Identification (test code = 4413) Product Code (test [id number] Performed at code = 4414) [facility] Blood [address] [address]Y[place] Free: [phone] A No. [id number] [facility] Packed RBC (in units), 2 Units 2023-01-18 02:43:04 Test Item Value Reference Range Interpretation Comments Cross Match Result Compatible (test code = 4409) ISBT Blood Type Code 6200 (test code = 315357) Unit Blood Type (test A Pos code = 4410) Unit Number (test [id number] code = 4411) Blood Expiration Date & Time (test code = 394289) Status Information Returned from (test code = 4412) Issue Product Red Blood Cells Identification (test code = 4413) Product Code (test [id number] Performed at code = 4414) [facility] Laboratory [address] [address]Dzfn Free: [phone] A No. [id number] [facility]CA2+2023-01-18 02:05:53 Test Item Value Reference Range Interpretation Comments PH (test code = 2) 7.36 7.35-7.45 PCO2 (test code = 31 See_Comment L [Automate d message] 4394190521) The system [employer] generated this result transmit paige reference range : 35 - 45 mmHg. The reference range was not used to interpret this result as normal/abnormal . PO2 (test code = 153 See_Comment H [Automated message] 8016716387) The system [employer] generated this result transmit paige reference range : 80 - 100 mmHg. The reference range was not used to interpret this result as normal/abnormal . HCO3 (test code = 17 See_Comment L [Automate d message] 1542409773) The system [employer] generated this result transmit paige reference range : 22 - 26 mEq/L. The reference range was not used to interpret this result as normal/abnormal . BE (test code = -7.4 See_Comment L [Automated message] 9382194994) The system [employer] generated this result transmit paige reference range : -3.0 - 3.0 mEq/ L. The reference r prasanth was not used to interpret this result as normal/abnormal . THB (test code = 9.0 g/dL 12.0-16.0 L 2152298585) %O2HB (test code = 97.7 % 94.0-99.0 3760312414) %COHB ART (test code = 0.3 % 0.0-1.5 8353025354) %METHB ART (test code = 0.2 % 0.4-1.5 L 7982218158) VOL%O2 ART (test code = 12.7 % 15.0-23.0 L QUES 1079127999) NA (test code = 135 mmol/L 135-145 6033470074) K+ (test code = 4.0 mmol/L 3.5-5.0 6779944472) AC CA IONZ (test code = 4.90 mg/dL 4.50-5.30 4603975446) GLUCOSE (test code = 133 mg/dL 70-110 H 2136111245) Lab Interpretation Abnormal (test code = 31063-9) [facility]CA2+[facility]23-01-18 02:05:53 Test Item Value Reference Range Interpretation Comments PH (test code = 2) 7.36 7.35-7.45 PCO2 (test code = 31 See_Comment L [Automate d message] 9577794813) The system [employer] generated this result transmit paige reference range : 35 - 45 mmHg. The reference range was not used to interpret this result as normal/abnormal . PO2 (test code = 153 See_Comment H [Automated message] 8905214204) The system [employer] generated this result transmit paige reference range : 80 - 100 mmHg. The reference range was not used to interpret this result as normal/abnormal . HCO3 (test code = 17 See_Comment L [Automate d message] 5535420435) The system [employer] generated this result transmit paige reference range : 22 - 26 mEq/L. The reference range was not used to interpret this result as normal/abnormal . BE (test code = -7.4 See_Comment L [Automated message] 2365570472) The system [employer] generated this result transmit paige reference range : -3.0 - 3.0 mEq/ L. The reference r prasanth was not used to interpret this result as normal/abnormal . THB (test code = 9.0 g/dL 12.0-16.0 L 8703323449) %O2HB (test code = 97.7 % 94.0-99.0 2502554636) %COHB ART (test code = 0.3 % 0.0-1.5 1267348823) %METHB ART (test code = 0.2 % 0.4-1.5 L 0822710622) VOL%O2 ART (test code = 12.7 % 15.0-23.0 L QUES 3547747261) NA (test code = 135 mmol/L 135-145 8749978278) K+ (test code = 4.0 mmol/L 3.5-5.0 8951506172) AC CA IONZ (test code = 4.90 mg/dL 4.50-5.30 3341665620) GLUCOSE (test code = 133 mg/dL 70-110 H 5264420261) Lab Interpretation Abnormal (test code = 83471-6) [facility]CA2+2023-01-18 02:05:38 Test Item Value Reference Range Interpretation Comments PH (test code = 2) 7.36 7.35-7.45 PCO2 (test code = 31 See_Comment L [Automate d message] 4755628478) The system [employer] generated this result transmit paige reference range : 35 - 45 mmHg. The reference range was not used to interpret this result as normal/abnormal . PO2 (test code = 155 See_Comment H [Automated message] 9904929765) The system [employer] generated this result transmit paige reference range : 80 - 100 mmHg. The reference range was not used to interpret this result as normal/abnormal . HCO3 (test code = 17 See_Comment L [Automate d message] 7607688001) The system [employer] generated this result transmit paige reference range : 22 - 26 mEq/L. The reference range was not used to interpret this result as normal/abnormal . BE (test code = -7.7 See_Comment L [Automated message] 3472384357) The system [employer] generated this result transmit paige reference range : -3.0 - 3.0 mEq/ L. The reference r prasanth was not used to interpret this result as normal/abnormal . THB (test code = 7.8 g/dL 12.0-16.0 LL 2811831331) %O2HB (test code = 98.2 % 94.0-99.0 7854470638) %COHB ART (test code = 0.0 % 0.0-1.5 9932238273) %METHB ART (test code = 0.3 % 0.4-1.5 L 8982961628) VOL%O2 ART (test code = 11.1 % 15.0-23.0 L QUES 1713564111) NA (test code = 135 mmol/L 135-145 7320006804) K+ (test code = 3.6 mmol/L 3.5-5.0 9636645944) AC CA IONZ (test code = 4.40 mg/dL 4.50-5.30 L 3797339131) GLUCOSE (test code = 121 mg/dL 70-110 H 4769241973) Lab Interpretation Abnormal (test code = 25164-4) [facility]CA2+2023-01-18 02:05:38 Test Item Value Reference Range Interpretation Comments PH (test code = 2) 7.36 7.35-7.45 PCO2 (test code = 31 See_Comment L [Automate d message] 6800847506) The system [employer] generated this result transmit paige reference range : 35 - 45 mmHg. The reference range was not used to interpret this result as normal/abnormal . PO2 (test code = 155 See_Comment H [Automated message] 7676827117) The system [employer] generated this result transmit paige reference range : 80 - 100 mmHg. The reference range was not used to interpret this result as normal/abnormal . HCO3 (test code = 17 See_Comment L [Automate d message] 9645577072) The system [employer] generated this result transmit paige reference range : 22 - 26 mEq/L. The reference range was not used to interpret this result as normal/abnormal . BE (test code = -7.7 See_Comment L [Automated message] 3682508353) The system [employer] generated this result transmit paige reference range : -3.0 - 3.0 mEq/ L. The reference r prasanth was not used to interpret this result as normal/abnormal . THB (test code = 7.8 g/dL 12.0-16.0 LL 4477714204) %O2HB (test code = 98.2 % 94.0-99.0 3585502634) %COHB ART (test code = 0.0 % 0.0-1.5 2240468523) %METHB ART (test code = 0.3 % 0.4-1.5 L 5958056122) VOL%O2 ART (test code = 11.1 % 15.0-23.0 L QUES 1640739830) NA (test code = 135 mmol/L 135-145 2074680240) K+ (test code = 3.6 mmol/L 3.5-5.0 8762344499) AC CA IONZ (test code = 4.40 mg/dL 4.50-5.30 L 3707543660) GLUCOSE (test code = 121 mg/dL 70-110 H 2837609126) Lab Interpretation Abnormal (test code = 78064-9) [facility] 01:59:13 Test Item Value Reference Range Interpretation Comments PH (test code = 2) 7.37 7.35-7.45 PCO2 (test code = 31 See_Comment L [Automate d message] 9191678125) The system [employer] generated this result transmit paige reference range : 35 - 45 mmHg. The reference range was not used to interpret this result as normal/abnormal . PO2 (test code = 191 See_Comment H [Automated message] 6912914782) The system [employer] generated this result transmit paige reference range : 80 - 100 mmHg. The reference range was not used to interpret this result as normal/abnormal . HCO3 (test code = 17 See_Comment L [Automate d message] 8618787060) The system [employer] generated this result transmit paige reference range : 22 - 26 mEq/L. The reference range was not used to interpret this result as normal/abnormal . BE (test code = -6.9 See_Comment L [Automated message] 2007760694) The system [employer] generated this result transmit paige reference range : -3.0 - 3.0 mEq/ L. The reference r prasanth was not used to interpret this result as normal/abnormal . THB (test code = 9.2 g/dL 12.0-16.0 L 5737247567) %O2HB (test code = 98.7 % 94.0-99.0 6084779888) %COHB ART (test code = 0.1 % 0.0-1.5 9205217345) %METHB ART (test code = 0.3 % 0.4-1.5 L 6177080962) VOL%O2 ART (test code = 13.2 % 15.0-23.0 L QUES 9616532855) NA (test code = 136 mmol/L 135-145 1366139600) K+ (test code = 3.8 mmol/L 3.5-5.0 5304416157) AC CA IONZ (test code = 4.60 mg/dL 4.50-5.30 4346267455) GLUCOSE (test code = 113 mg/dL 70-110 H 9994318124) Lab Interpretation Abnormal (test code = 17490-0) [facility]GLU[facility]CA2+[facility]23-01-18 01:59:13 Test Item Value Reference Range Interpretation Comments PH (test code = 2) 7.37 7.35-7.45 PCO2 (test code = 31 See_Comment L [Automate d message] 3935800469) The system [employer] generated this result transmit paige reference range : 35 - 45 mmHg. The reference range was not used to interpret this result as normal/abnormal . PO2 (test code = 191 See_Comment H [Automated message] 9947049581) The system [employer] generated this result transmit paige reference range : 80 - 100 mmHg. The reference range was not used to interpret this result as normal/abnormal . HCO3 (test code = 17 See_Comment L [Automate d message] 4231365570) The system [employer] generated this result transmit paige reference range : 22 - 26 mEq/L. The reference range was not used to interpret this result as normal/abnormal . BE (test code = -6.9 See_Comment L [Automated message] 4712927615) The system [employer] generated this result transmit paige reference range : -3.0 - 3.0 mEq/ L. The reference r prasanth was not used to interpret this result as normal/abnormal . THB (test code = 9.2 g/dL 12.0-16.0 L 8377556550) %O2HB (test code = 98.7 % 94.0-99.0 9777533328) %COHB ART (test code = 0.1 % 0.0-1.5 4728043819) %METHB ART (test code = 0.3 % 0.4-1.5 L 3878473472) VOL%O2 ART (test code = 13.2 % 15.0-23.0 L QUES 1888725955) NA (test code = 136 mmol/L 135-145 4788781993) K+ (test code = 3.8 mmol/L 3.5-5.0 3051231985) AC CA IONZ (test code = 4.60 mg/dL 4.50-5.30 8184998615) GLUCOSE (test code = 113 mg/dL 70-110 H 5814776331) Lab Interpretation Abnormal (test code = 32132-7) [facility] 01:58:53 Test Item Value Reference Range Interpretation Comments PH (test code = 2) 7.34 7.35-7.45 L PCO2 (test code = 41 See_Comment [Automate d message] 7382024502) The system [employer] generated this result transmit paige reference range : 35 - 45 mmHg. The reference range was not used to interpret this result as normal/abnormal . PO2 (test code = 203 See_Comment H [Automated message] 9322278080) The system [employer] generated this result transmit paige reference range : 80 - 100 mmHg. The reference range was not used to interpret this result as normal/abnormal . HCO3 (test code = 21 See_Comment L [Automate d message] 7006748997) The system [employer] generated this result transmit paige reference range : 22 - 26 mEq/L. The reference range was not used to interpret this result as normal/abnormal . BE (test code = -4.3 See_Comment L [Automated message] 9888231258) The system [employer] generated this result transmit paige reference range : -3.0 - 3.0 mEq/ L. The reference r prasanth was not used to interpret this result as normal/abnormal . THB (test code = 10.9 g/dL 12.0-16.0 L 4577682318) %O2HB (test code = 98.4 % 94.0-99.0 5443414999) %COHB ART (test code = 0.3 % 0.0-1.5 9351888371) %METHB ART (test code = 0.1 % 0.4-1.5 L 2771315971) VOL%O2 ART (test code = 15.5 % 15.0-23.0 QUES 4306907509) NA (test code = 136 mmol/L 135-145 4981143908) K+ (test code = 3.4 mmol/L 3.5-5.0 L 9425171327) AC CA IONZ (test code = 4.60 mg/dL 4.50-5.30 5936893956) GLUCOSE (test code = 98 mg/dL 70-110 7522679590) Lab Interpretation Abnormal (test code = 16855-5) [facility] 01:58:53 Test Item Value Reference Range Interpretation Comments PH (test code = 2) 7.34 7.35-7.45 L PCO2 (test code = 41 See_Comment [Automate d message] 1207456893) The system [employer] generated this result transmit paige reference range : 35 - 45 mmHg. The reference range was not used to interpret this result as normal/abnormal . PO2 (test code = 203 See_Comment H [Automated message] 4293188360) The system [employer] generated this result transmit paige reference range : 80 - 100 mmHg. The reference range was not used to interpret this result as normal/abnormal . HCO3 (test code = 21 See_Comment L [Automate d message] 2358214319) The system [employer] generated this result transmit paige reference range : 22 - 26 mEq/L. The reference range was not used to interpret this result as normal/abnormal . BE (test code = -4.3 See_Comment L [Automated message] 4201085193) The system [employer] generated this result transmit paige reference range : -3.0 - 3.0 mEq/ L. The reference r prasanth was not used to interpret this result as normal/abnormal . THB (test code = 10.9 g/dL 12.0-16.0 L 1549647254) %O2HB (test code = 98.4 % 94.0-99.0 5980617696) %COHB ART (test code = 0.3 % 0.0-1.5 2739271112) %METHB ART (test code = 0.1 % 0.4-1.5 L 8412429403) VOL%O2 ART (test code = 15.5 % 15.0-23.0 QUES 3991164530) NA (test code = 136 mmol/L 135-145 3298956753) K+ (test code = 3.4 mmol/L 3.5-5.0 L 1364212303) AC CA IONZ (test code = 4.60 mg/dL 4.50-5.30 7989218315) GLUCOSE (test code = 98 mg/dL 70-110 3358314572) Lab Interpretation Abnormal (test code = 12171-9) [facility] 01:58:38 Test Item Value Reference Range Interpretation Comments PH (test code = 2) 7.39 7.35-7.45 PCO2 (test code = 33 See_Comment L [Automate d message] 9530856266) The system [employer] generated this result transmit paige reference range : 35 - 45 mmHg. The reference range was not used to interpret this result as normal/abnormal . PO2 (test code = 221 See_Comment H [Automated message] 2036845536) The system [employer] generated this result transmit paige reference range : 80 - 100 mmHg. The reference range was not used to interpret this result as normal/abnormal . HCO3 (test code = 19 See_Comment L [Automate d message] 9308867316) The system [employer] generated this result transmit paige reference range : 22 - 26 mEq/L. The reference range was not used to interpret this result as normal/abnormal . BE (test code = -4.8 See_Comment L [Automated message] 4469933066) The system [employer] generated this result transmit paige reference range : -3.0 - 3.0 mEq/ L. The reference r prasanth was not used to interpret this result as normal/abnormal . THB (test code = 10.7 g/dL 12.0-16.0 L 1192057604) %O2HB (test code = 98.5 % 94.0-99.0 4559429804) %COHB ART (test code = 0.3 % 0.0-1.5 4128886449) %METHB ART (test code = 0.1 % 0.4-1.5 L 3420487818) VOL%O2 ART (test code = 15.3 % 15.0-23.0 QUES 7398540627) NA (test code = 136 mmol/L 135-145 2615053753) K+ (test code = 3.6 mmol/L 3.5-5.0 0578062754) AC CA IONZ (test code = 4.60 mg/dL 4.50-5.30 6028001486) GLUCOSE (test code = 102 mg/dL 70-110 0943821056) Lab Interpretation Abnormal (test code = 10912-6) [facility]18 01:58:38 Test Item Value Reference Range Interpretation Comments PH (test code = 2) 7.39 7.35-7.45 PCO2 (test code = 33 See_Comment L [Automate d message] 7507682640) The system [employer] generated this result transmit paige reference range : 35 - 45 mmHg. The reference range was not used to interpret this result as normal/abnormal . PO2 (test code = 221 See_Comment H [Automated message] 5629161724) The system [employer] generated this result transmit paige reference range : 80 - 100 mmHg. The reference range was not used to interpret this result as normal/abnormal . HCO3 (test code = 19 See_Comment L [Automate d message] [id number]) The system [employer] generated this result transmit apige reference range : 22 - 26 mEq/L. The reference range was not used to interpret this result as normal/abnormal . BE (test code = -4.8 See_Comment L [Automated message] 0906323375) The system [employer] generated this result transmit paige reference range : -3.0 - 3.0 mEq/ L. The reference r prasanth was not used to interpret this result as normal/abnormal . THB (test code = 10.7 g/dL 12.0-16.0 L 2693440065) %O2HB (test code = 98.5 % 94.0-99.0 0746090573) %COHB ART (test code = 0.3 % 0.0-1.5 9270773132) %METHB ART (test code = 0.1 % 0.4-1.5 L 0269607677) VOL%O2 ART (test code = 15.3 % 15.0-23.0 QUES 3716947358) NA (test code = 136 mmol/L 135-145 5581534736) K+ (test code = 3.6 mmol/L 3.5-5.0 9949563944) AC CA IONZ (test code = 4.60 mg/dL 4.50-5.30 5486534176) GLUCOSE (test code = 102 mg/dL 70-110 0890268478) Lab Interpretation Abnormal (test code = 96299-9) [facility] 01:53:50 Test Item Value Reference Range Interpretation Comments PH (test code = 2) 7.38 7.35-7.45 PCO2 (test code = 33 See_Comment L [Automate d message] [id number]) The system [employer] generated this result transmit paige reference range : 35 - 45 mmHg. The reference range was not used to interpret this result as normal/abnormal . PO2 (test code = 183 See_Comment H [Automated message] [id number]) The system [employer] generated this result transmit paige reference range : 80 - 100 mmHg. The reference range was not used to interpret this result as normal/abnormal . HCO3 (test code = 19 See_Comment L [Automate d message] 4984578553) The system [employer] generated this result transmit paige reference range : 22 - 26 mEq/L. The reference range was not used to interpret this result as normal/abnormal . BE (test code = -5.3 See_Comment L [Automated message] 1636810631) The system [employer] generated this result transmit paige reference range : -3.0 - 3.0 mEq/ L. The reference r prasanth was not used to interpret this result as normal/abnormal . THB (test code = 7.8 g/dL 12.0-16.0 LL 6581562547) %O2HB (test code = 97.7 % 94.0-99.0 7393027135) %COHB ART (test code = 0.7 % 0.0-1.5 5364845746) %METHB ART (test code = 0.4 % 0.4-1.5 2962401793) VOL%O2 ART (test code = 11.2 % 15.0-23.0 L QUES 3675182740) NA (test code = 129 mmol/L 135-145 L 1958764251) K+ (test code = 3.7 mmol/L 3.5-5.0 9513243552) AC CA IONZ (test code = 4.30 mg/dL 4.50-5.30 L 7719191627) GLUCOSE (test code = 128 mg/dL 70-110 H 6082124210) Lab Interpretation Abnormal (test code = 58875-7) [facility] 01:53:50 Test Item Value Reference Range Interpretation Comments PH (test code = 2) 7.38 7.35-7.45 PCO2 (test code = 33 See_Comment L [Automate d message] 4150479863) The system [employer] generated this result transmit paige reference range : 35 - 45 mmHg. The reference range was not used to interpret this result as normal/abnormal . PO2 (test code = 183 See_Comment H [Automated message] 5583536120) The system [employer] generated this result transmit paige reference range : 80 - 100 mmHg. The reference range was not used to interpret this result as normal/abnormal . HCO3 (test code = 19 See_Comment L [Automate d message] 9488286716) The system [employer] generated this result transmit paige reference range : 22 - 26 mEq/L. The reference range was not used to interpret this result as normal/abnormal . BE (test code = -5.3 See_Comment L [Automated message] 8038260071) The system [employer] generated this result transmit paige reference range : -3.0 - 3.0 mEq/ L. The reference r prasanth was not used to interpret this result as normal/abnormal . THB (test code = 7.8 g/dL 12.0-16.0 LL 6793441118) %O2HB (test code = 97.7 % 94.0-99.0 7852686801) %COHB ART (test code = 0.7 % 0.0-1.5 1210715311) %METHB ART (test code = 0.4 % 0.4-1.5 8669477653) VOL%O2 ART (test code = 11.2 % 15.0-23.0 L QUES 8150987411) NA (test code = 129 mmol/L 135-145 L 9564687776) K+ (test code = 3.7 mmol/L 3.5-5.0 3608459408) AC CA IONZ (test code = 4.30 mg/dL 4.50-5.30 L 8051695848) GLUCOSE (test code = 128 mg/dL 70-110 H 8214263347) Lab Interpretation Abnormal (test code = 75860-2) [facility] 01:53:14 Test Item Value Reference Range Interpretation Comments PH (test code = 2) 7.38 7.35-7.45 PCO2 (test code = 33 See_Comment L [Automate d message] 1106828169) The system [employer] generated this result transmit paige reference range : 35 - 45 mmHg. The reference range was not used to interpret this result as normal/abnormal . PO2 (test code = 209 See_Comment H [Automated message] 8148422451) The system [employer] generated this result transmit paige reference range : 80 - 100 mmHg. The reference range was not used to interpret this result as normal/abnormal . HCO3 (test code = 19 See_Comment L [Automate d message] 1912024077) The system [employer] generated this result transmit paige reference range : 22 - 26 mEq/L. The reference range was not used to interpret this result as normal/abnormal . BE (test code = -5.2 See_Comment L [Automated message] 6420919845) The system [employer] generated this result transmit paige reference range : -3.0 - 3.0 mEq/ L. The reference r prasanth was not used to interpret this result as normal/abnormal . THB (test code = 8.2 g/dL 12.0-16.0 LL 2184977097) %O2HB (test code = 98.3 % 94.0-99.0 1027446023) %COHB ART (test code = 0.6 % 0.0-1.5 5269742638) %METHB ART (test code = 0.5 % 0.4-1.5 3468976579) VOL%O2 ART (test code = 11.9 % 15.0-23.0 L QUES 8322255265) NA (test code = 134 mmol/L 135-145 L 8823118696) K+ (test code = 3.7 mmol/L 3.5-5.0 9789147762) AC CA IONZ (test code = 4.50 mg/dL 4.50-5.30 4959594606) GLUCOSE (test code = 137 mg/dL 70-110 H 1583796109) Lab Interpretation Abnormal (test code = 42688-6) [facility] 01:53:14 Test Item Value Reference Range Interpretation Comments PH (test code = 2) 7.38 7.35-7.45 PCO2 (test code = 33 See_Comment L [Automate d message] 8369968757) The system [employer] generated this result transmit paige reference range : 35 - 45 mmHg. The reference range was not used to interpret this result as normal/abnormal . PO2 (test code = 209 See_Comment H [Automated message] 3348168449) The system [employer] generated this result transmit paige reference range : 80 - 100 mmHg. The reference range was not used to interpret this result as normal/abnormal . HCO3 (test code = 19 See_Comment L [Automate d message] 8642673283) The system [employer] generated this result transmit paige reference range : 22 - 26 mEq/L. The reference range was not used to interpret this result as normal/abnormal . BE (test code = -5.2 See_Comment L [Automated message] 4317565993) The system [employer] generated this result transmit paige reference range : -3.0 - 3.0 mEq/ L. The reference r prasanth was not used to interpret this result as normal/abnormal . THB (test code = 8.2 g/dL 12.0-16.0 LL 2650180453) %O2HB (test code = 98.3 % 94.0-99.0 2700190836) %COHB ART (test code = 0.6 % 0.0-1.5 8554787528) %METHB ART (test code = 0.5 % 0.4-1.5 6071157203) VOL%O2 ART (test code = 11.9 % 15.0-23.0 L QUES 9937318625) NA (test code = 134 mmol/L 135-145 L 7143216052) K+ (test code = 3.7 mmol/L 3.5-5.0 0449137273) AC CA IONZ (test code = 4.50 mg/dL 4.50-5.30 4043640665) GLUCOSE (test code = 137 mg/dL 70-110 H 8611137165) Lab Interpretation Abnormal (test code = 82216-4) [facility] 01:44:26 Test Item Value Reference Range Interpretation Comments PH (test code = 2) 7.36 7.35-7.45 PCO2 (test code = 34 See_Comment L [Automate d message] 6041432049) The system [employer] generated this result transmit paige reference range : 35 - 45 mmHg. The reference range was not used to interpret this result as normal/abnormal . PO2 (test code = 153 See_Comment H [Automated message] 0275557980) The system [employer] generated this result transmit paige reference range : 80 - 100 mmHg. The reference range was not used to interpret this result as normal/abnormal . HCO3 (test code = 19 See_Comment L [Automate d message] 7462506712) The system [employer] generated this result transmit paige reference range : 22 - 26 mEq/L. The reference range was not used to interpret this result as normal/abnormal . BE (test code = -6.2 See_Comment L [Automated message] 8659571159) The system [employer] generated this result transmit paige reference range : -3.0 - 3.0 mEq/ L. The reference r prasanth was not used to interpret this result as normal/abnormal . THB (test code = 8.2 g/dL 12.0-16.0 LL 9777820030) %O2HB (test code = 98.3 % 94.0-99.0 6550656134) %COHB ART (test code = 0.3 % 0.0-1.5 7204501791) %METHB ART (test code = 0.1 % 0.4-1.5 L 9327647794) VOL%O2 ART (test code = 11.7 % 15.0-23.0 L QUES 9579725681) NA (test code = 134 mmol/L 135-145 L 6026224033) K+ (test code = 4.0 mmol/L 3.5-5.0 4419610880) AC CA IONZ (test code = 5.30 mg/dL 4.50-5.30 2193214206) GLUCOSE (test code = 142 mg/dL 70-110 H 1194166162) Lab Interpretation Abnormal (test code = 18550-5) [facility] 01:44:26 Test Item Value Reference Range Interpretation Comments PH (test code = 2) 7.36 7.35-7.45 PCO2 (test code = 34 See_Comment L [Automate d message] 4131869048) The system [employer] generated this result transmit paige reference range : 35 - 45 mmHg. The reference range was not used to interpret this result as normal/abnormal . PO2 (test code = 153 See_Comment H [Automated message] 9648476052) The system [employer] generated this result transmit paige reference range : 80 - 100 mmHg. The reference range was not used to interpret this result as normal/abnormal . HCO3 (test code = 19 See_Comment L [Automate d message] 8806819378) The system [employer] generated this result transmit paige reference range : 22 - 26 mEq/L. The reference range was not used to interpret this result as normal/abnormal . BE (test code = -6.2 See_Comment L [Automated message] 4441504480) The system [employer] generated this result transmit paige reference range : -3.0 - 3.0 mEq/ L. The reference r prasanth was not used to interpret this result as normal/abnormal . THB (test code = 8.2 g/dL 12.0-16.0 LL 2979986451) %O2HB (test code = 98.3 % 94.0-99.0 7733355400) %COHB ART (test code = 0.3 % 0.0-1.5 2267048453) %METHB ART (test code = 0.1 % 0.4-1.5 L 1353605837) VOL%O2 ART (test code = 11.7 % 15.0-23.0 L QUES 0340583815) NA (test code = 134 mmol/L 135-145 L 6331779346) K+ (test code = 4.0 mmol/L 3.5-5.0 5016911557) AC CA IONZ (test code = 5.30 mg/dL 4.50-5.30 1833385350) GLUCOSE (test code = 142 mg/dL 70-110 H 8458031615) Lab Interpretation Abnormal (test code = 54908-6) [facility] 01:43:21 Test Item Value Reference Range Interpretation Comments PH (test code = 2) 7.35 7.35-7.45 PCO2 (test code = 40 See_Comment [Automate d message] 4420876033) The system [employer] generated this result transmit paige reference range : 35 - 45 mmHg. The reference range was not used to interpret this result as normal/abnormal . PO2 (test code = 182 See_Comment H [Automated message] 1631674152) The system [employer] generated this result transmit paige reference range : 80 - 100 mmHg. The reference range was not used to interpret this result as normal/abnormal . HCO3 (test code = 22 See_Comment [Automate d message] 1860060878) The system [employer] generated this result transmit paige reference range : 22 - 26 mEq/L. The reference range was not used to interpret this result as normal/abnormal . BE (test code = -3.5 See_Comment L [Automated message] 8138125723) The system [employer] generated this result transmit paige reference range : -3.0 - 3.0 mEq/ L. The reference r prasanth was not used to interpret this result as normal/abnormal . THB (test code = 11.1 g/dL 12.0-16.0 L 1427835832) %O2HB (test code = 98.1 % 94.0-99.0 8731979742) %COHB ART (test code = 0.3 % 0.0-1.5 1421442010) %METHB ART (test code = 0.3 % 0.4-1.5 L 9662865633) VOL%O2 ART (test code = 15.7 % 15.0-23.0 QUES 8979451141) NA (test code = 137 mmol/L 135-145 3070221202) K+ (test code = 3.1 mmol/L 3.5-5.0 L 3637058145) AC CA IONZ (test code = 4.70 mg/dL 4.50-5.30 3408316771) GLUCOSE (test code = 111 mg/dL 70-110 H 4877508782) Lab Interpretation Abnormal (test code = 04830-8) [facility] 01:43:21 Test Item Value Reference Range Interpretation Comments PH (test code = 2) 7.35 7.35-7.45 PCO2 (test code = 40 See_Comment [Automate d message] 7121978075) The system [employer] generated this result transmit paige reference range : 35 - 45 mmHg. The reference range was not used to interpret this result as normal/abnormal . PO2 (test code = 182 See_Comment H [Automated message] 4385398614) The system [employer] generated this result transmit paige reference range : 80 - 100 mmHg. The reference range was not used to interpret this result as normal/abnormal . HCO3 (test code = 22 See_Comment [Automate d message] 6533567583) The system [employer] generated this result transmit paige reference range : 22 - 26 mEq/L. The reference range was not used to interpret this result as normal/abnormal . BE (test code = -3.5 See_Comment L [Automated message] 3610885498) The system [employer] generated this result transmit paige reference range : -3.0 - 3.0 mEq/ L. The reference r prasanth was not used to interpret this result as normal/abnormal . THB (test code = 11.1 g/dL 12.0-16.0 L 4438610395) %O2HB (test code = 98.1 % 94.0-99.0 5811772081) %COHB ART (test code = 0.3 % 0.0-1.5 2036068597) %METHB ART (test code = 0.3 % 0.4-1.5 L 4533771056) VOL%O2 ART (test code = 15.7 % 15.0-23.0 QUES 0481351593) NA (test code = 137 mmol/L 135-145 2597334100) K+ (test code = 3.1 mmol/L 3.5-5.0 L 2180507613) AC CA IONZ (test code = 4.70 mg/dL 4.50-5.30 1088749177) GLUCOSE (test code = 111 mg/dL 70-110 H 7943867506) Lab Interpretation Abnormal (test code = 50778-8) [facility] 1 Units 2023-01-17 22:41:13 Test Item Value Reference Range Interpretation Comments Cross Match Result Compatible (test code = 4409) ISBT Blood Type Code 6200 (test code = 987588) Unit Blood Type (test A Pos code = 4410) Unit Number (test [id number] code = 4411) Blood Expiration Date [id number] & Time (test code = 873973) Status Information Issued (test code = 4412) Product Red Blood Cells Identification (test code = 4413) Product Code (test [id number] Performed at [facility] code = 4414) Laboratory Services - [facility] Blood [address] [place] [id number] Free: [phone] A No. [id number] [facility] Packed RBC (in units), 1 Units 2023-01-17 22:41:13 Test Item Value Reference Range Interpretation Comments Cross Match Result Compatible (test code = 4409) ISBT Blood Type Code 6200 (test code = 057285) Unit Blood Type (test A Pos code = 4410) Unit Number (test [id number] code = 4411) Blood Expiration Date [id number] & Time (test code = 423576) Status Information Issued (test code = 4412) Product Red Blood Cells Identification (test code = 4413) Product Code (test [id number] Performed at [facility] code = 4414) Laboratory Services - [facility] Blood [address] [place] [id number] Free: [phone] A No. [id number] [facility] WITHOUT [id number] 21:49:46 Test Item Value Reference Range Interpretation Comments WBC (test code = 6690-2) 9.66 See_Comment [A utomated message] The system [employer] generated this result transmit paige reference range : 4.30 - 11.10 10*3/?L. The reference range was not used to interpret this result as normal/abnormal . RBC (test code = 789-8) 2.55 See_Comment L [Au tomated message] The system [employer] generated this result transmit paige reference range : 3.93 - 5.25 10* 6/?L. The reference r prasanth was not used to interpret this result as normal/abnormal . HGB (test code = 718-7) 7.5 g/dL 11.6-15.0 L HCT (test code = 4544-3) 23.1 % 35.7-45.2 L MCH (test code = 785-6) 29.4 pg 25.9-32.8 MCV (test code = 787-2) 90.6 fL 80.6-95.5 MCHC (test code = 786-4) 32.5 g/dL 31.6-35.1 PLT (test code = 777-3) 208 See_Comment [Au tomated message] The system [employer] generated this result transmit paige reference range : 166 - 358 10*3/?L. The reference range was not used to interpret this result as normal/abnormal . MPV (test code = 10.9 fL 9.5-12.9 97253-6) RDW-CV (test code = 14.8 % 12.0-15.5 788-0) RDW-SD (test code = 48.9 fL 39.0-49.9 87189-7) NRBC x10^3 (test code = See_Comment [Au tomated message] 6100803368) The system [employer] generated this result transmit paige reference range : 10*3/?L. The reference range was not used to interpret this result as normal/abnormal . NRBC/100 WBC (test code 0.0 See_Comment [Au tomated message] = 4551918691) The system [facility] generated this result transmit paige reference range : 0.0 - 10.0 /100 WBC s. The reference r prasanth was not used to interpret this result as normal/abnormal . IPF % (test code = 3438815866) Lab Interpretation (test Abnormal code = 00028-0) [facility] WITHOUT [id number] 21:49:46 Test Item Value Reference Range Interpretation Comments WBC (test code = 6690-2) 9.66 See_Comment [A utomated message] The system [employer] generated this result transmit paige reference range : 4.30 - 11.10 10*3/?L. The reference range was not used to interpret this result as normal/abnormal . RBC (test code = 789-8) 2.55 See_Comment L [Au tomated message] The system [employer] generated this result transmit paige reference range : 3.93 - 5.25 10* 6/?L. The reference r prasanth was not used to interpret this result as normal/abnormal . HGB (test code = 718-7) 7.5 g/dL 11.6-15.0 L HCT (test code = 4544-3) 23.1 % 35.7-45.2 L MCH (test code = 785-6) 29.4 pg 25.9-32.8 MCV (test code = 787-2) 90.6 fL 80.6-95.5 MCHC (test code = 786-4) 32.5 g/dL 31.6-35.1 PLT (test code = 777-3) 208 See_Comment [Au tomated message] The system [employer] generated this result transmit paige reference range : 166 - 358 10*3/?L. The reference range was not used to interpret this result as normal/abnormal . MPV (test code = 10.9 fL 9.5-12.9 42110-4) RDW-CV (test code = 14.8 % 12.0-15.5 788-0) RDW-SD (test code = 48.9 fL 39.0-49.9 79002-4) NRBC x10^3 (test code = See_Comment [Au tomated message] 4645301702) The system [employer] generated this result transmit paige reference range : 10*3/?L. The reference range was not used to interpret this result as normal/abnormal . NRBC/100 WBC (test code 0.0 See_Comment [Au tomated message] = 1808171867) The system [employer] generated this result transmit paige reference range : 0.0 - 10.0 /100 WBC s. The reference r prasanth was not used to interpret this result as normal/abnormal . IPF % (test code = 9661104644) Lab Interpretation (test Abnormal code = 87868-7) [facility] [id number] 10:54:00 Test Item Value Reference Range Interpretation Comments ABO & RH (test code = 20) A POSITIVE IAT (test code = 1185) Negative [facility] - ONCE [id number] 10:54:00 Test Item Value Reference Range Interpretation Comments ABO & RH (test code = 20) A POSITIVE IAT (test code = 1185) Negative [facility]ULT[facility], [id number] 00:00:00 Test Item Value Reference Range Interpretation Comments CULTURE, ROUTINE (test SPECIMEN NUMBER: code = 71627) [id number] CULTURE, [id number] 00:00:00 Test Item Value Reference Range Interpretation Comments CULTURE, ROUTINE (test SPECIMEN NUMBER: code = 90027) [id number] CULTURE, [id number] 00:00:00 Test Item Value Reference Range Interpretation Comments CULTURE, ROUTINE (test SPECIMEN NUMBER: code = 84649) [id number] CULTURE, [id number] 00:00:00 Test Item Value Reference Range Interpretation Comments CULTURE, ROUTINE (test SPECIMEN NUMBER: code = 32875) [id number] GC AND CHLAMYDIA AMPLIFIED, [id number] 00:00:00 Test Item Value Reference Range Interpretation Comments GONORRHEA, TMA (test code = 42880) NEGATIVE CHLAMYDIA, TMA (test code = 99059) NEGATIVE VAGINAL PATHOGENS DNA [id number] 00:00:00 Test Item Value Reference Range Interpretation Comments LORE SPECIES (test code = 22958) NEGATIVE G. VAGINALIS (test code = 25057) POSITIVE T. VAGINALIS (test code = 48878) NEGATIVE ACUTE HEPATITIS [id number] 00:00:00 Test Item Value Reference Range Interpretation Comments HEPATITIS A IgM (test code = NON-REACTIVE 37763) HEPATITIS B CORE IgM (test code NON-REACTIVE = 4644) HEPATITIS B SURF AG (test code = NON-REACTIVE 0989) HEPATITIS C ANTIBODY (test code NON-REACTIVE = 4634) INTERPRETATION HEPATITIS A: (NOTE) (test code = 2552) INTERPRETATION HEPATITIS B: (NOTE) (test code = 51980) INTERPRETATION HEPATITIS C: (NOTE) (test code = 32991) PAP TEST, THINPREP, [id number] 00:00:00 Test Item Value Reference Range Interpretation Comments SOURCE: (test code = Cervical/Endocervical 8001) SLIDES: (test code = 1 8011) LMP: (test code = 8021) 05/18/2021 SPECIMEN ADEQUACY: (test (NOTE) code = 54394) INTERPRETATION: (test NILM/NO EPITH. code = 17458) ABNORMALITY;SEE BELOW OTHER COMMENTS: (test (NOTE) code = 8081) DESIGN LEAD: (test Jeanna code = 8101) BRIANNE Suresh(ASCP) LOCATION: (test code = (NOTE) 57927) CPT: (test code = 8140) (NOTE) HPV HIGH RISK WITH GENOTYPE, [id number] 00:00:00 Test Item Value Reference Range Interpretation Comments HPV HIGH RISK INTERP (test code = NEGATIVE 87216) HPV 16 (test code = 34977) NEGATIVE HPV 18 (test code = 28692) NEGATIVE HPV, HR, OTHER GENOTYPES (test code NEGATIVE = 77638) VAGINAL PATHOGENS DNA [id number] 00:00:00 Test Item Value Reference Range Interpretation Comments LORE SPECIES (test code = ) NEGATIVE G. VAGINALIS (test code = ) POSITIVE T. VAGINALIS (test code = ) NEGATIVE GC AND CHLAMYDIA AMPLIFIED, [id number] 00:00:00 Test Item Value Reference Range Interpretation Comments GONORRHEA, TMA (test code = 24941) NEGATIVE CHLAMYDIA, TMA (test code = 47110) NEGATIVE PAP TEST, THINPREP, [id number] 00:00:00 Test Item Value Reference Range Interpretation Comments SOURCE: (test code = Cervical/Endocervical 800) SLIDES: (test code = 1 8011) LMP: (test code = 8021) 05/18/2021 SPECIMEN ADEQUACY: (test (NOTE) code = 47409) INTERPRETATION: (test NILM/NO EPITH. code = 09774) ABNORMALITY;SEE BELOW OTHER COMMENTS: (test (NOTE) code = 8081) DESIGN LEAD: (test Jeanna code = 8101) BRIANNE Suresh(ASCP) LOCATION: (test code = (NOTE) 61493) CPT: (test code = 8140) (NOTE) ACUTE HEPATITIS [id number] 00:00:00 Test Item Value Reference Range Interpretation Comments HEPATITIS A IgM (test code = NON-REACTIVE 75410) HEPATITIS B CORE IgM (test code NON-REACTIVE = 4644) HEPATITIS B SURF AG (test code = NON-REACTIVE 9879) HEPATITIS C ANTIBODY (test code NON-REACTIVE = 4675) INTERPRETATION HEPATITIS A: (NOTE) (test code = 2552) INTERPRETATION HEPATITIS B: (NOTE) (test code = 45886) INTERPRETATION HEPATITIS C: (NOTE) (test code = 06618) HPV HIGH RISK WITH GENOTYPE, [id number] 00:00:00 Test Item Value Reference Range Interpretation Comments HPV HIGH RISK INTERP (test code = NEGATIVE 80202) HPV 16 (test code = 35217) NEGATIVE HPV 18 (test code = 69940) NEGATIVE HPV, HR, OTHER GENOTYPES (test code NEGATIVE = 67971) COMPREHENSIVE METABOLIC [id number] 00:00:00 Test Item Value Reference Range Interpretation Comments GLUCOSE (test code = 2217) 84 MG/DL BUN (test code = 2208) 18 MG/DL CREATININE (test code = 2214) 0.94 MG/DL eGFR AMER. (test code 83 ML/MIN/1.73 = 02404) eGFR NON- AMER. (test 72 ML/MIN/1.73 code = 42137) CALC BUN/CREAT (test code = 19 RATIO [...] CALC GLOBULIN (test code = 3.1 G/DL 224) CALC A/G RATIO (test code = 1.5 RATIO 4) BILIRUBIN, TOTAL (test code = <0.2 MG/DL 2206) ALKALINE PHOSPHATASE (test 66 U/L code = 2204) AST (test code = 2218) 19 U/L ALT (test code = 2219) 10 U/L LIPID [id number] 00:00:00 Test Item Value Reference Range Interpretation Comments CHOLESTEROL (test code = 2210) 157 MG/DL TRIGLYCERIDES (test code = 2232) 135 MG/DL HDL CHOLESTEROL (test code = 2220) 40 MG/DL CALC LDL CHOL (test code = 2237) 94 MG/DL RISK RATIO LDL/HDL (test code = 2.35 RATIO 2238) COMPREHENSIVE METABOLIC [id number] 00:00:00 Test Item Value Reference Range Interpretation Comments GLUCOSE (test code = 2217) 84 MG/DL BUN (test code = 2208) 18 MG/DL CREATININE (test code = 2214) 0.94 MG/DL eGFR AMER. (test code 83 ML/MIN/1.73 = 08074) eGFR NON- AMER. (test 72 ML/MIN/1.73 code = 60531) CALC BUN/CREAT (test code = 19 RATIO [...] CALC GLOBULIN (test code = 3.1 G/DL 224) CALC A/G RATIO (test code = 1.5 RATIO 223) BILIRUBIN, TOTAL (test code = <0.2 MG/DL 2206) ALKALINE PHOSPHATASE (test 66 U/L code = 2204) AST (test code = 2218) 19 U/L ALT (test code = 2219) 10 U/L LIPID [id number] 00:00:00 Test Item Value Reference Range Interpretation Comments CHOLESTEROL (test code = 2210) 157 MG/DL TRIGLYCERIDES (test code = 2232) 135 MG/DL HDL CHOLESTEROL (test code = 2220) 40 MG/DL CALC LDL CHOL (test code = 2237) 94 MG/DL RISK RATIO LDL/HDL (test code = 2.35 RATIO 2238) COMPREHENSIVE METABOLIC [id number] 00:00:00 Test Item Value Reference Range Interpretation Comments GLUCOSE (test code = 2217) 93 MG/DL BUN (test code = 2208) 12 MG/DL CREATININE (test code = 2214) 0.81 MG/DL eGFR AMER. (test code 102 ML/MIN/1.73 = 12012) eGFR NON- AMER. (test 88 ML/MIN/1.73 code = 53805) CALC BUN/CREAT (test code = 15 RATIO [...] CALC GLOBULIN (test code = 3.2 G/DL 2240) CALC A/G RATIO (test code = 1.3 RATIO 2234) BILIRUBIN, TOTAL (test code = 0.2 MG/DL 220) ALKALINE PHOSPHATASE (test 52 U/L code = 2204) AST (test code = 2218) 16 U/L ALT (test code = 2219) 14 U/L [id number] 00:00:00 Test Item Value Reference Range Interpretation Comments AMYLASE (test code = 2205) 32 U/L [id number] 00:00:00 Test Item Value Reference Range Interpretation Comments LIPASE (test code = 2057) 37 U/L [id number] 00:00:00 Test Item Value Reference Range Interpretation Comments LIPASE (test code = 2057) 37 U/L COMPREHENSIVE METABOLIC [id number] 00:00:00 Test Item Value Reference Range Interpretation Comments GLUCOSE (test code = 2217) 93 MG/DL BUN (test code = 2208) 12 MG/DL CREATININE (test code = 2214) 0.81 MG/DL eGFR AMER. (test code 102 ML/MIN/1.73 = 27243) eGFR NON- AMER. (test 88 ML/MIN/1.73 code = 45910) CALC BUN/CREAT (test code = 15 RATIO 2235) SODIUM (test code = 2231) 140 MEQ/L POTASSIUM (test code = 2228) 4.4 MEQ/L CHLORIDE (test code = 2215) 100 MEQ/L CARBON DIOXIDE (test code = 23 MEQ/L 2206) CALCIUM (test code = 2209) 9.3 MG/DL PROTEIN, TOTAL (test code = 7.3 G/DL 2229) ALBUMIN (test code = 2201) 4.1 G/DL CALC GLOBULIN (test code = 3.2 G/DL 2240) CALC A/G RATIO (test code = 1.3 RATIO 2234) BILIRUBIN, TOTAL (test code = 0.2 MG/DL 2206) ALKALINE PHOSPHATASE (test 52 U/L code = 2204) AST (test code = 2218) 16 U/L ALT (test code = 2219) 14 U/L [id number] 00:00:00 Test Item Value Reference Range Interpretation Comments AMYLASE (test code = 2205) 32 U/L [id number] 00:00:00 Test Item Value Reference Range Interpretation Comments LIPASE (test code = 2057) 37 U/L [id number] 00:00:00 Test Item Value Reference Range Interpretation Comments LIPASE (test code = 2057) 37 U/L CBC W/AUTO [id number] 00:00:00 Test Item Value Reference Range Interpretation [...] code = 1015) 327 K/UL CBC W/AUTO [id number] 00:00:00 Test Item Value Reference Range Interpretation [...] code = 1015) 327 K/UL CBC W/AUTO [id number] 00:00:00 Test Item Value Reference Range Interpretation [...] code = 1015) 327 K/UL CBC W/AUTO [id number] 00:00:00 Test Item Value Reference Range Interpretation [...]
[2023-01-26] MEDS ORDERED: CYCLOBENZAPRINE 10 MG TAB PO PRN ×2 (15:50→16:32)
[2023-01-26] MEDS ORDERED: HYDROCODONE/APAP 5/325 MG TAB PO PRN ×2 (15:54→15:55)
[2023-01-26] MEDS ORDERED: TRAMADOL HCL 50 MG TAB PO PRN (15:55)
[2023-01-26] MEDS ORDERED: ALBUTEROL INHALER 60 PUFF/8 GM IH PRN (15:56)
[2023-01-26] MEDS ORDERED: Oxycodone HCl/Acetaminophen 1 TAB TAB PO PRN (16:05)
[2023-01-26] MEDS ORDERED: OXYCODONE *CR* 10 MG TAB PO PRN (16:06)
[2023-01-26] MEDS ORDERED: DOCUSATE NA/SENNA CONC 1 TAB PO PRN (16:25)
[2023-01-26] MEDS ORDERED: POLYETHYL GLY 3350 17 GM/DOSE PO PRN (17:00)
[2023-01-26 17:40] LABS: Specific Gravity 1.012 (1.005-1.030); Urine Bacteria <20 /HPF (<20); Urine Bilirubin NEGATIVE (Negative); Urine Blood Negative (Negative); Urine Clarity Extremely Turbid (Clear); Urine Color Light-Yellow (Yellow); Urine Glucose NEGATIVE (Negative); Urine Mucus Slight /HPF (None Seen); Urine Protein NEGATIVE (Negative); Urine RBC <5 /HPF (None Seen); Urine Urobilinogen Normal (Normal); Urine pH 6.5 (5.0-7.0)
[2023-01-26] MEDS ORDERED: ONDANSETRON 4 MG (ODT) TAB PO PRN (18:35)
[2023-01-26] MEDS ORDERED: MAGNESIUM HYDROXIDE 8% 30 ML PO PRN (18:35)
[2023-01-26] MEDS ORDERED: SIMETHICONE 80 MG TAB PO PRN (18:36)
[2023-01-26] MEDS ORDERED: ALBUTEROL 2.5 MG/3 ML NEB SOL NEB PRN (18:37)
[2023-01-26] MEDS ORDERED: MELATONIN 5 MG TABLET PO PRN (19:46)
[2023-01-26] MEDS ORDERED: GABAPENTIN 400 MG CAP PO SCH ×2 (20:00→21:00)
[2023-01-26] MEDS ORDERED: APIXABAN 2.5 MG TABLET PO SCH (20:00)
[2023-01-26] MEDS ORDERED: OXYCODONE *CR* 10 MG TAB PO SCH (20:00)
[2023-01-26] MEDS ORDERED: CYCLOBENZAPRINE 10 MG TAB PO SCH (21:00)
[2023-01-26] MEDS ORDERED: GABAPENTIN 400 MG CAP PO ONE (21:40)
[2023-01-27 00:07] VITALS: BP 101/59
[2023-01-27] MEDS ORDERED: FERROUS SULFATE 325 MG TAB PO SCH (08:00)
[2023-01-27] MEDS ORDERED: OXYCODONE *CR* 10 MG TAB PO SCH (08:00)
[2023-01-27] MEDS ORDERED: LIDOCAINE 4% PATCH TOP SCH (08:00)
[2023-01-27] MEDS ORDERED: FE SULF/FA/VIT B COMP & C TAB PO SCH ×2 (08:00)
[2023-01-27] MEDS ORDERED: SERTRALINE HCL 50 MG TAB PO SCH (08:00)
[2023-01-27] MEDS ORDERED: GABAPENTIN 400 MG CAP PO SCH (09:00)
== END 2023-01-26 22:25 | disposition home or self-care (01) | DRG 561 ==
LOC: 5TH 01-26 14:50
PROVIDERS: ADMIT Psychiatry & Neurology Neurology with Special Qualifications in Child Neurology; ATTEND Psychiatry & Neurology Neurology with Special Qualifications in Child Neurology
DX: Z47.82 Encounter for orthopedic aftercare following scoliosis surgery (principal); F32.A Depression, unspecified; E83.51 Hypocalcemia; E87.6 Hypokalemia; E66.9 Obesity, unspecified; R00.0 Tachycardia, unspecified; M19.90 Unspecified osteoarthritis, unspecified site; M79.10 Myalgia, unspecified site; M25.50 Pain in unspecified joint; G89.4 Chronic pain syndrome; Z68.32 Body mass index [BMI] 32.0-32.9, adult
CPT/HCPCS: 81001; 87086; 87088

== ENCOUNTER 2023-01-26 22:31 | Emergency (ER) | payer OTHER ==
--- OUTSIDE RECORDS SUMMARY | 2023-01-26 23:09 | XMS REPORT | Continuity of Care Document ---
:1970 Author Organization [facility] t Address [address] [facility] [address] [place] [address] Care Team Providers Name Role Phone Star Kellogg Primary Care Physician [phone] FELIPE HERZOG Attending Clinician Unavailable Felipe Herzog MD Attending Clinician WEN CAPELLAN Attending Clinician Unavailable Doctor Unassigned, [place] Attending Clinician Unavailable NADEEM SALMERON Attending Clinician [...] Attending Clinician LENA QUINONES Attending Clinician Unavailable Shalom RTBettie Attending Clinician Unavailable Testing, [facility] Pulmonary Function Attending Clinician Unavaila ble Fellow, Pulmonary Attending Clinician Unavailable Sun Mack MD Attending Clinician [phone] SUN MACK Attending Clinician Unavailable PAGE CAPELLAN Attending Clinician Unavailable Junior Thayer Attending Clinician JUNIOR LARKIN Attending Clinician Unavailable [facility] Attending Clinician Unavailable FELIPE HERZOG Admitting Clinician Unavailable Felipe Herzog MD Admitting Clinician [facility] Admitting Clinician Unavailable Payers Payer Name Policy Type Policy Number Effective Date Expiration Date S [place] MEDICARE PART A \\T\\ [id number] 2021 B 00:00:00 DARS DISABILITY [id number] 2014 DETERMINATION [facility]CS 00:00:00 Problems Condition Condition [...] I 3-17 ity of disorder disorder 00:00: [place] with with 00 Medical depression depression Br [...] rs active active ity of problems problems [place] [facility] Allergies, Adverse Reactions, Alerts Allergy [...] History SDOH Social Unive rsity of Connections [facility] [place] [facility] History SDOH Social Unive [...] o f Housing Unable to 00:00:00 00:00:00 [place] M edical Pay Branch History SDOH 2023-01-18 2023-01-18 1 [place] o f Housing Places 00:00:00 00:00:00 [facility] xiomy Lived Branch History SDOH 2023-01-18 2023-01-18 2 [place] o f Housing Homeless 00:00:00 00:00:00 [facility] dical Last Year Branch Exposure to 2022-10-15 2022-10-25 Not sure University SARS-CoV-2 (event) 00:00:00 11:09:00 [facility] Tobacco use and 2022-02-23 2022-02-23 Smokeless Universit y of exposure 00:00:00 00:00:00 tobacco non-user [facility] dical [place] Sex Ass[birth year] Universit y of 00:00:00 00:00:00 [facility] Smoking Status Start Date Stop Date Source Ex-smoker 2022-02-23 00:00:00 2022-02-23 00:00:00 Universi ty [facility] Medications Ordered Filled Start Stop Current Ordering Indication Dosage Frequency Signature Comments Components Source Medication Medication Date Date Medication? Clinician (SIG) Name Name oxyCODONE-a Yes 1{tbl} 1 tablet, Univers cetaminophe - Oral, ity of n 17:15: Q6HPRN, [place] (PERCOCET) 00 Starting Medic al 5-325 mg on Tue per tablet 01/26/23 at 1 tablet 1215, Until Discontinu ed, Routine, Pain (scale 4-6) lisinopriL No 20mg Take 20 mg Univers 20 mg 01-26 by mouth. ity of tablet 07:32: 00:00 [place] 14 :00 Medical Branch gabapentin Yes 800mg 800 mg, Uni vers (NEURONTIN) 6- Oral, QHS, it y of tablet 800 02:00: [place] dose [place] mg 00 on Tue Medical 01/25/23 at Branch 2100, Until Discontinu ed, Routine cyclobenzap Yes 10mg Take 1 Univ ers rine 10 mg - tablet by ity of tablet 00:00: mouth [place] 00 every 8 Medical (eight) Branch hours. gabapentin 2022-0 Yes 400mg Take 1 Univ ers 400 [...] glycerin/mi 2022-0 Yes 225mL 225 mL, Un mercedes neral oil 6-20 Rectal, ity of (AGLO 17:24: QHSPRN, [place] ENEMA) 25 Starting Medical (COMPOUNDED on Tue ) Enem 225 01/25/23 at mL 1224, Until Discontinu ed, Routine, Constipati on unresolved by oral medication s gabapentin 2022-0 2022- No 400mg 400 mg, Un mercedes (NEURONTIN) 6-19 06-20 Oral, TID, i ty of capsule 400 01:45: 19:03 First dose [place] mg 00 :31 (after Medical last Branch modificati on) on [place] 01/23/23 at 2045, Until Discontinu ed, Routine gabapentin 3-0 2022- No 300mg 300 mg, Un mercedes (NEURONTIN) 01-23 Oral, TID, i ty of capsule 300 14:45: 01:38 First dose [place] mg 00 :53 on [place] Medical 01/23/23 at Branch 0945, Until Discontinu ed, Routine simethicone 2022-0 Yes 80mg 80 mg, Univ ers (GAS RELIEF 17 Oral, ity of (SIMETHICON 18:00: PC+HS, [place] E[place] 00 First dose Medical chewable on [facility] Branch tablet 80 01/22/23 at mg 1300, [...] Oral, ity of (MILK OF 18:45: DAILY, [place] MAGNESIA) 00 First dose Medi xiomy 400 mg/5 mL (after Branch suspension last 15 mL modificati on) on [facility] 01/20/23 at 1345, Until Discontinu ed, Routine ferrous 3-0 Yes 325mg 325 mg, Univer s sulfate 6-15 Oral, Q ity of tablet 325 18:28: [place]DAY, [place] mg 40 First dose Medical on [facility] Branch 01/20/23 at 1330, Until Discontinu [...] 01-19 Oral, ity of (TYLENOL) 15:52: Q8HPRN, [place] tablet 500 07 Starting Medic al mg on Wed Branch 01/19/23 at 1052, Until Discontinu ed, Routine, Pain (scale 1-3) oxyCODONE-a 2022- No 1{tbl} 1 tablet, [facility] cetaminophe 01-19 Oral, ity of n 15:51: 17:02 Q4HPRN, [place] (PERCOCET) 55 :14 Starting Medic al 5-325 mg on Tue Branch per tablet 01/19/23 at 1 tablet 1051, Until Tue01/26/23 at 1202, Routine, Pain (scale 4-6) sennosides- 2022-0 Yes 1{tbl} 1 tablet, [facility] docusate 01-19 Oral, ity of sodium 14:00: DAILY, [place] (SENOKOT-S) 00 First dose Me dical 8.6-50 mg on Tue Branch per tablet 01/19/23 at 1 tablet 0900, Until Discontinu ed, Routine sennosides- 2022-0 Yes 1{tbl} 1 tablet, [facility] docusate 01-19 Oral, ity of sodium 14:00: DAILY, [place] (SENOKOT-S) 00 First dose Me dical 8.6-50 mg on Wed Branch per tablet 01/19/23 at 1 tablet 0900, Until Discontinu ed, Routine HYDROmorpho 2022- No .2mg 0.2 mg, Un mercedes ne 01-19 Slow IV ity of (DILAUDID) 13:48: 16:58 Push, [place] injection 46 :42 Q4HPRN, Medical 0.2 mg Starting Branch on Tue01/19/23 at 0848, Until Tue01/19/23 at 1158, Routine, Pain (scale 7-10)
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
Reas on for Anti-Infec tive: Surgical Prophylaxi s
Vilchis rgical Prophylaxi s: Orthopaedi c
Durat ion of therapy: within 24 hours of surgery polyethylen 0 Yes 17g 17 g, Unive rs e glycol - Oral, ity of 3350 powder 15:15: DAILY[place] 17 g 00 First dose Medical on [facility] 01/18/23 at 1015, Until Discontinu ed, Routine polyethylen 0 Yes 17g 17 g, Unive rs e glycol - Oral, ity of 3350 powder 15:15: DAILY, [place] 17 g 00 First dose Medical on [facility] 01/18/23 at 1015, Until Discontinu ed, Routine ARIPiprazol Yes 15mg 15 mg, Univ ers e (ABILIFY) 01-18 Oral, ity of tablet 15 14:00: DAILY, [place] mg 00 First dose Medical on [facility] 01/18/23 at 0900, Until Discontinu ed, Routine SERTraline 0 Yes 50mg 50 mg, Unive rs (ZOLOFT) 01-18 Oral, ity of tablet 50 14:00: DAILY, [place] mg 00 First dose Medical on [facility] 01/18/23 at 0900, Until Discontinu ed, Routine SERTraline 0 Yes 50mg 50 mg, Unive rs (ZOLOFT) 01-18 Oral, ity of tablet 50 14:00: DAILY, [place] mg 00 First dose Medical on [facility] 01/18/23 at 0900, Until Discontinu ed, Routine propofoL IV 2022- No 5ug/kg/ 5-50 Un mercedes infusion 01-18 06-13 min mcg/kg/min ity of 03:50: 16:02 ?73.2 kg [place] 11 :50 (2.196-21. Medical 96 mL/hr, Branch [...] Slow IV ity of (PF)) 02:50: Push, [place] injection 44 Q2HPRN, 5 Medic al 50 mcg doses, Branch Starting on Tue01/17/23 at 2150, Until Discontinu ed, Routine, Pain (scale 7-10) FENTanyl PF 2022- No 50ug 50 mcg, Un mercedes (SUBLIMAZE 01-18 Slow IV ity o f (PF)) 02:50: 02:50 Push, [place] injection 44 :00 Q2HPRN, 5 Medic al 50 mcg doses, Branch Starting on Tue01/17/23 at 2150, Until Tue01/18/23 at 2150, Routine, Pain (scale 7-10) BUPivacaine 2022- No PRN, Unive rs liposome 01-18 Starting ity of (PF) 01:34: 13:52 on Tue [place] (EXPAREL 00 :34 01/17/23 at Medic al (PF)) 1.3 % 2033, Branch (13.3 Intra-op mg/mL) 266 mg, NaCl 0.9% (NS) 20 mL vancomycin 2022- No PRN, Univer s (VANCOCIN) 01-18 Starting ity of injection 01:33: 13:52 on Tue [place] 00 :34 01/17/23 at Medical 2032, Branch Until Tue01/18/23 at 0852, CHASITY, Intra-op topiramate Yes 50mg 50 mg, Unive rs (TOPAMAX) 01-18 Oral, BID, ity of tablet 50 01:00: [place] 00 on [facility] 01/17/23 at [place] 2000, Until Discontinu ed, Routine
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 : BERNARDO TRENT lidocaine-e 2022- No PRN, Unive rs pinephrine 01-17 Starting ity of (XYLOCAINE 14:54: 13:52 on [facility] [place] WITH 00 :34 01/17/23 at [facility] EPINEPHRINE 0954, [place] ) 1 Until Tue %-1:100,000 01/18/23 at injection 0852, Routine, Intra-op heparin 2022- No PRN, Univers 10,000 01-17 Starting ity of units in NS 14:52: 13:52 on [facility] Neal as 1000 mL for 00 :34 01/17/23 at Dc dical vascular 0952, [place] Intra-op pantoprazol 0 Yes 40mg 40 mg, Univ ers e 01-17 Oral, ity of (PROTONIX) 14:00: DAILY, [place] EC tablet 00 First dose Medi xiomy [address] [facility] 01/17/23 at 0900, Until Discontinu ed, Routine
Indicatio n for use: None of the above lisinopriL Yes 10mg 10 mg, Unive rs (PRINIVIL,Z 01-17 Oral, ity of ESTRIL) 14:00: DAILY, [place] tablet 10 00 First dose Medi xiomy mg on [facility] 01/17/23 at 0900, Until Discontinu ed, Routine pantoprazol 2022- No 40mg 40 mg, Uni vers e 01-17 Oral, ity of (PROTONIX) 14:00: 15:00 DAILY, [place] EC tablet 00 :41 First dose Medi xiomy [address] [facility] 01/17/23 at 0900, Until Discontinu ed, Routine
Indicatio n for use: None of the above naloxone 2022-0 Yes .1mg 0.1 mg, Univer s (NARCAN) -12 Intravenou ity o f injection 12:45: s, PRN - [place] 0.1 mg 04 SEE Medical INSTRUCT[facility], Starting on Tue01/17/23 at 0745, Until Discontinu ed, CHASITY, Sedation/R espiratory Depression magnesium 3-0 Yes 15mL 15 mL, Univer s hydroxide 01-17 Oral, ity of (MILK OF 12:45: QIDPRN, [place] MAGNESIA) 04 Starting Medica l 400 mg/5 mL on Tue suspension 01/17/23 at 15 mL 0745, Until Discontinu ed, Routine, Constipati on ondansetron 2022-0 Yes 4mg 4 mg, Slow Univers (ZOFRAN 6-12 IV Push, ity of (PF)) 12:45: Q6HPRN, [place] injection 4 04 Starting Medi xiomy mg on Tue Branch 01/17/23 at 0745, Until Discontinu ed, Routine, Nausea and Vomiting (N/V) naloxone 2022-0 Yes .1mg 0.1 mg, Univer s (NARCAN) 01-17 Intravenou ity o f injection 12:45: s, PRN - [place] 0.1 mg 04 SEE Medical INSTRUCTIO [facility], Starting on Tue01/17/23 at 0745, Until Discontinu ed, CHASITY, Sedation/R espiratory Depression ondansetron 2022-0 Yes 4mg 4 mg, Slow Univers (ZOFRAN 6-12 IV Push, ity of (PF)) 12:45: Q6HPRN, [place] injection 4 04 Starting Medi xiomy mg on Tue Branch 01/17/23 at 0745, Until Discontinu ed, Routine, Nausea and Vomiting (N/V) HYDROmorpho 2022-0 202- Yes .2mg 0.2 mg, Un mercedes ne [...] (Faculty): Pravin GRECO, ADULT/PEDI SPINE SURGERY HYDROcodone 2022-2022- No [id number] 1{tbl} 1 tablet, Univers -acetaminop [...] 01/17/23 at 0530, Routine, DSU Pre-op lisinopriL 2022-0 Yes 20mg Take 20 mg U nivers 20 mg 01-17 by mouth. ity of tablet 07:47: [place] 38 [facility] Branch dextroamphe 2022-0 Yes 10mg [...] by ity of tablet 00:00: 04:59 mouth. [place] 00 :00 Medical Branch ARIPiprazol 0 2023- Yes 15mg Take 1 Uni vers e 15 mg 4-11 04-11 tablet by ity of tablet 00:00: 04:59 mouth. [place] 00 :00 Medical Branch ergocalcife 3-0 Yes [id number] Take 1 Univers rol, 3-16 capsule by ity of vitamin d2, 00:00: mouth [place] 1,250 mcg 00 weekly. Medical (50,000 Branch unit) capsule ergocalcife 2023-0 Yes [id number] Take 1 Univers rol, 3-16 capsule by ity of vitamin d2, 00:00: mouth [place] 1,250 mcg 00 weekly. Medical (50,000 Branch unit) capsule ergocalcife 2023-0 Yes [id number] Take 1 Univers rol, 3-16 capsule by ity of vitamin d2, 00:00: mouth [place] 1,250 mcg 00 weekly. Medical (50,000 Branch unit) capsule ergocalcife 2023-0 Yes [id number] Take 1 Univers rol, 3-16 capsule by ity of vitamin d2, 00:00: mouth [place] 1,250 mcg 00 weekly. Medical (50,000 Branch unit) capsule ergocalcife 2023-0 Yes [id number] Take 1 Univers rol, 3-16 capsule by ity of vitamin d2, 00:00: mouth [place] 1,250 mcg 00 weekly. Medical (50,000 Branch unit) capsule ergocalcife 2023-0 Yes [id number] Take 1 Univers rol, 3-16 capsule by ity of vitamin d2, 00:00: mouth [place] 1,250 mcg 00 weekly. Medical (50,000 Branch unit) capsule ergocalcife 2023-0 Yes [id number] Take 1 Univers rol, 3-16 capsule by ity of vitamin d2, 00:00: mouth [place] 1,250 mcg 00 weekly. Medical (50,000 Branch unit) capsule ergocalcife 2023-0 Yes [id number] Take 1 Univers rol, 3-16 capsule by ity of vitamin d2, 00:00: mouth [place] 1,250 mcg 00 weekly. Medical (50,000 Branch unit) capsule ergocalcife 2023-0 Yes [id number] Take 1 Univers rol, 3-16 capsule by ity of vitamin d2, 00:00: mouth [place] 1,250 mcg 00 weekly. Medical (50,000 Branch unit) capsule ergocalcife 2023-0 Yes [id number] Take 1 Univers rol, 3-16 capsule by ity of vitamin d2, 00:00: mouth [place] 1,250 mcg 00 weekly. Medical (50,000 Branch unit) capsule ergocalcife 2023-0 Yes [id number] Take 1 Univers rol, 3-16 capsule by ity of vitamin d2, 00:00: mouth [place] 1,250 mcg 00 weekly. Medical (50,000 Branch unit) capsule ergocalcife 2023-0 Yes [id number] Take 1 Univers rol, 3-16 capsule by ity of vitamin d2, 00:00: mouth [place] 1,250 mcg 00 weekly. Medical (50,000 Branch unit) capsule ergocalcife 2023-0 Yes [id number] Take 1 Univers rol, 3-16 capsule by ity of vitamin d2, 00:00: mouth [place] 1,250 mcg 00 weekly. Medical (50,000 Branch unit) capsule ergocalcife 2023-0 Yes [id number] Take 1 Univers rol, 3-16 capsule by ity of vitamin d2, 00:00: mouth [place] 1,250 mcg 00 weekly. Medical (50,000 Branch unit) capsule ergocalcife 2023-0 Yes [id number] Take 1 Univers rol, 3-16 capsule by ity of vitamin d2, 00:00: mouth [place] 1,250 mcg 00 weekly. Medical (50,000 Branch unit) capsule ergocalcife 2023-0 Yes [id number] Take 1 Univers rol, 3-16 capsule by ity of vitamin d2, 00:00: mouth [place] 1,250 mcg 00 weekly. Medical (50,000 Branch unit) capsule ergocalcife 2023-0 Yes [id number] Take 1 Univers rol, 3-16 capsule by ity of vitamin d2, 00:00: mouth [place] 1,250 mcg 00 weekly. Medical (50,000 Branch unit) capsule ergocalcife 2023-0 Yes [id number] Take 1 Univers rol, 3-16 capsule by ity of vitamin d2, 00:00: mouth [place] 1,250 mcg 00 weekly. Medical (50,000 Branch unit) capsule ergocalcife 2023-0 Yes [id number] Take 1 Univers rol, 3-16 capsule by ity of vitamin d2, 00:00: mouth [place] 1,250 mcg 00 weekly. Medical (50,000 Branch unit) capsule ergocalcife 2023-0 Yes [id number] Take 1 Univers rol, 3-16 capsule by [...] 1-21 by mouth. ity of tablet 06:17: [address] Branch lisinopriL 2021-08 Yes 20mg Take 20 mg U nivers 20 mg 1-21 by mouth. ity of tablet 06:17: [address] Branch lisinopriL 2021-08 Yes 20mg Take 20 mg U nivers 20 mg 1-21 by mouth. ity of tablet 06:17: [address] Branch lisinopriL 2021-08 Yes 20mg Take 20 mg U nivers 20 mg 1-21 by mouth. ity of tablet 06:17: [address] lisinopriL 2021-08 Yes 20mg Take 20 mg U nivers 20 mg 1-21 by mouth. ity of tablet 06:17: [address] lisinopriL 2021-08 Yes 20mg Take 20 mg U nivers 20 mg 1-21 by mouth. ity of tablet 06:17: [address] lisinopriL 2021-08 Yes 20mg Take 20 mg U nivers 20 mg 1-21 by mouth. ity of tablet 06:17: [address] lisinopriL 2021-08 Yes 20mg Take 20 mg U nivers 20 mg 1-21 by mouth. ity of tablet 06:17: [address] lisinopriL 2021-08 Yes 20mg Take 20 mg U nivers 20 mg 1-21 by mouth. ity of tablet 06:17: [address] lisinopriL 2021-08 Yes 20mg Take 20 mg U nivers 20 mg 1-21 by mouth. ity of tablet 06:17: [address] lisinopriL 2021-08 Yes 20mg Take 20 mg U nivers 20 mg 1-21 by mouth. ity of tablet 06:17: [address] lisinopriL 2021-08 Yes 20mg Take 20 mg U nivers 20 mg 1-21 by mouth. ity of tablet 06:17: [address] lisinopriL 2021-08 Yes 20mg Take 20 mg U nivers 20 mg 1-21 by mouth. ity of tablet 06:17: [address] lisinopriL 2021-08 Yes 20mg Take 20 mg U nivers 20 mg 1-21 by mouth. ity of tablet 06:17: [address] lisinopriL 2021-08 Yes 20mg Take 20 mg U nivers 20 mg 1-21 by mouth. ity of tablet 06:17: [address] lisinopriL 2021-08 Yes 20mg Take 20 mg U nivers 20 mg 1-21 by mouth. ity of tablet 06:17: [address] lisinopriL 2021-08 Yes 20mg Take 20 mg U nivers 20 mg 1-21 by mouth. ity of tablet 06:17: [address] lisinopriL 2021-08 Yes 20mg Take 20 mg U nivers 20 mg 1-21 by mouth. ity of tablet 06:17: [address] lisinopriL 2021-08 Yes 20mg Take 20 mg U nivers 20 mg 1-21 by mouth. ity of tablet 06:17: [address] lisinopriL 2021-08 Yes 20mg Take 20 mg U nivers 20 mg 1-21 by mouth. ity of tablet 06:17: [address] lisinopriL 2021-08 Yes 20mg Take 20 mg U nivers 20 mg 1-21 by mouth. ity of tablet 06:17: [address] lisinopriL 2021-08 Yes 20mg Take 20 mg U nivers 20 mg 1-21 by mouth. ity of tablet 06:17: [address] lisinopriL 2021-08 Yes 20mg Take 20 mg U nivers 20 mg 1-21 by mouth. ity of tablet 06:17: [address] lisinopriL 2021-08 Yes 20mg Take 20 mg U nivers 20 mg 1-21 by mouth. ity of tablet 06:17: [address] lisinopriL 2021-08 Yes 20mg Take 20 mg U nivers 20 mg 1-21 by mouth. ity of tablet 06:17: [address] lisinopriL 2021-08 Yes 20mg Take 20 mg U nivers 20 mg 1-21 by mouth. ity of tablet 06:17: [address] lisinopriL 2021-08 Yes 20mg Take 20 mg U nivers 20 mg 1-21 by mouth. ity of tablet 06:17: [address] lisinopriL 2021-08 Yes 20mg Take 20 mg U nivers 20 mg 1-21 by mouth. ity of tablet 06:17: [address] lisinopriL 2021-08 Yes 20mg Take 20 mg U nivers 20 mg 1-21 by mouth. ity of tablet 06:17: [address] lisinopriL 2021-08 Yes 20mg Take 20 mg U nivers 20 mg 1-21 by mouth. ity of tablet 06:17: [address] lisinopriL 2021-08 Yes 20mg Take 20 mg U nivers 20 mg 1-21 by mouth. ity of tablet 06:17: [address] lisinopriL 2021-08 Yes 20mg Take 20 mg U nivers 20 mg 1-21 by mouth. ity of tablet 06:17: [address] lisinopriL 2021-08 Yes 20mg Take 20 mg U nivers 20 mg 1-21 by mouth. ity of tablet 06:17: [address] lisinopriL 2021-08 Yes 20mg Take 20 mg U nivers 20 mg 1-21 by mouth. ity of tablet 06:17: [address] lisinopriL 2021-08 Yes 20mg Take 20 mg U nivers 20 mg 1-21 by mouth. ity of tablet 06:17: [address] lisinopriL 2021-08 Yes 20mg Take 20 mg U nivers 20 mg 1-21 by mouth. ity of tablet 06:17: [address] lisinopriL 2021-08 Yes 20mg Take 20 mg U nivers 20 mg 1-21 by mouth. ity of tablet 06:17: [address] lisinopriL 2021-08 Yes 20mg Take 20 mg U nivers 20 mg 1-21 by mouth. ity of tablet 06:17: [address] lisinopriL 2021-08 Yes 20mg Take 20 mg U nivers 20 mg 1-21 by mouth. ity of tablet 06:17: [address] lisinopriL 2021-08 Yes 20mg Take 20 mg U nivers 20 mg 1-21 by mouth. ity of tablet 06:17: [address] meloxicam 2021-2021- No [id number] 7.5mg Take 1 Univers 7.5 mg 8-04 10-04 tablet by ity of tablet 00:00: 04:59 mouth in [place] 00 :00 [facility] for 60 days. meloxicam 2021-2021- No [id number] 7.5mg Take 1 Univers 7.5 mg 8-04 10-04 tablet by ity of tablet 00:00: 04:59 mouth in [place] 00 :00 [facility] for 60 days. meloxicam 2-0 2021- No [id number] 7.5mg Take 1 Univers 7.5 mg 8-04 10-04 tablet by ity of tablet 00:00: 04:59 mouth in [place] 00 :00 [facility] for 60 days. meloxicam 2021-0 2021- No [id number] 7.5mg Take 1 Univers 7.5 mg 8-04 10-04 tablet by ity of tablet 00:00: 04:59 mouth in [place] 00 :[address] [facility] for 60 days. meloxicam 2021-0 2021- No [id number] 7.5mg Take 1 Univers 7.5 mg 8-11 15- tablet by ity of tablet 00:00: 04:59 mouth in [place] 00 :[address] the [facility] for 60 days. meloxicam 2021-0 2021- No [id number] 7.5mg Take 1 Univers 7.5 mg 8-11 15-04 tablet by ity of tablet 00:00: 04:59 mouth in [place] 00 :00 the [facility] for 60 days. meloxicam 2021-0 2021- No [id number] 7.5mg Take 1 Univers 7.5 mg 8-11 15- tablet by ity of tablet 00:00: 04:59 mouth in [place] 00 :[address] the [facility] for 60 days. meloxicam 2021-0 2021- No [id number] 7.5mg Take 1 Univers 7.5 mg 8-11 15- tablet by ity of tablet 00:00: 04:59 mouth in [place] 00 :00 [facility] for 60 days. meloxicam 2021-0 2021- No [id number] 7.5mg Take 1 Univers 7.5 mg 8-11 15- tablet by ity of tablet 00:00: 04:59 mouth in [place] 00 :[address] the [facility] for 60 days. cyclobenzap 2021-2021- No [id number] 10mg Take 1 Univers rine 10 mg -11 14- tablet by ity of tablet 00:00: 04:59 mouth in [place] 00 :00 [facility] and 1 tablet at noon and 1 tablet in the evening. Do all this for 30 days. acetaminoph 2021-0 2021- No [id number] 1000mg Take 2 Univers en (TYLENOL -11 14- tablets by i ty of EXTRA 00:00: 04:59 mouth [place] STRENGTH) 00 :00 every 8 Medical 500 mg (eight) Branch tablet hours as needed for Pain for up to 30 days. cyclobenzap 2021-0 2021- No [id number] 10mg Take 1 Univers rine 10 mg 8-11 14- tablet by ity of tablet 00:00: 04:59 mouth in [place] 00 :00 the Medical morning Branch and 1 tablet at noon and 1 tablet in the evening. Do all this for 30 days. acetaminoph 2021-0 2021- No [id number] 1000mg Take 2 Univers en (TYLENOL 03-11- tablets by i ty of EXTRA 00:00: 04:59 mouth [place] STRENGTH) 00 :00 every 8 Medical 500 mg (eight) Branch tablet hours as needed for Pain for up to 30 days. cyclobenzap 2021-0 2021- No [id number] 10mg Take 1 Univers rine 10 mg -11 14- tablet by ity of tablet 00:00: 04:59 mouth in [place] 00 :00 the Medical morning Branch and 1 tablet at noon and 1 tablet in the evening. Do all this for 30 days. acetaminoph 2021-0 2021- No [id number] 1000mg Take 2 Univers en (TYLENOL 03-11- tablets by i ty of EXTRA 00:00: 04:59 mouth [place] STRENGTH) 00 :00 every 8 Medical 500 mg (eight) Branch tablet hours as needed for Pain for up to 30 days. cyclobenzap 2021-0 2021- No [id number] 10mg Take 1 Univers rine 10 mg 03-11 tablet by ity of tablet 00:00: 04:59 mouth in [place] 00 :00 the Medical morning Branch and 1 tablet at noon and 1 tablet in the evening. Do all this for 30 days. acetaminoph 2021-0 2021- No [id number] 1000mg Take 2 Univers en (TYLENOL 03-11 tablets by i ty of EXTRA 00:00: 04:59 mouth [place] STRENGTH) 00 :00 every 8 Medical 500 mg (eight) Branch tablet hours as needed for Pain for up to 30 days. lisinopriL 2022-0 Yes 20mg Take 20 mg U nivers 20 mg 7-19 by mouth. ity of tablet 08:19: [address] lisinopriL 2022-0 Yes 20mg Take 20 mg U nivers 20 mg 7-19 by mouth. ity of tablet 08:19: [address] lisinopriL 2022-0 Yes 20mg Take 20 mg U nivers 20 mg 7-19 by mouth. ity of tablet 08:19: [address] lisinopriL 2022-0 Yes 20mg Take 20 mg U nivers 20 mg 7-19 by mouth. ity of tablet 08:19: [address] lisinopriL 2022-0 Yes 20mg Take 20 mg U nivers 20 mg 7-19 by mouth. ity of tablet 08:19: [address] lisinopriL 2022-0 Yes 20mg Take 20 mg U nivers 20 mg 7-19 by mouth. ity of tablet 08:19: [address] lisinopriL 2022-0 Yes 20mg Take 20 mg [facility] nivers 20 mg 7-19 by mouth. ity of tablet 08:19: [address] lisinopriL 2022-0 Yes 20mg Take 20 mg [facility] n[facility] 20 mg 7-19 by mouth. ity of tablet 08:19: [address] lisinopriL 2022-0 Yes 20mg Take 20 mg [facility] 20 mg 7-19 by mouth. ity of tablet 08:19: [address] lisinopriL 2022-0 Yes 20mg Take 20 mg [facility] n[facility] 20 mg 7-19 by mouth. ity of tablet 08:19: [address] lisinopriL 2022-0 Yes 20mg Take 20 mg [facility] n[facility] 20 mg 7-19 by mouth. ity of tablet 08:19: [address] lisinopriL 2022-0 Yes 20mg Take 20 mg [facility] 20 mg 7-19 by mouth. ity of tablet 08:19: [address] lisinopriL 2022-0 Yes 20mg Take 20 mg [facility] n[facility] 20 mg 7-19 by mouth. ity of tablet 08:19: [address] lisinopriL 2022-0 Yes 20mg Take 20 mg [facility] n[facility] 20 mg 7-19 by mouth. ity of tablet 08:19: [address] lisinopriL 2022-0 Yes 20mg Take 20 mg [facility] n[facility] 20 mg 7-19 by mouth. ity of tablet 08:19: [address] lisinopriL 2022-0 Yes 20mg Take 20 mg [facility] n[facility] 20 mg 7-19 by mouth. ity of tablet 08:19: [address] lisinopriL 2022-0 Yes 20mg Take 20 mg [facility] nivers 20 mg 7-19 by mouth. ity of tablet 08:19: [address] lisinopriL 2022-0 Yes 20mg Take 20 mg [facility] n[facility] 20 mg 7-19 by mouth. ity of tablet 08:19: [address] lisinopriL 2022-0 Yes 20mg Take 20 mg [facility] n[facility] 20 mg 7-19 by mouth. ity of tablet 08:19: [address] Dose 2022-0 No Unknown 5-09 00:00: [...] mg by ity of tablet 00:00: mouth. [address] SERTraline 2020-08 Yes 300mg Take 300 Un [place] 100 mg 2-13 mg by ity of tablet 00:00: mouth. [address] SERTraline 2020-08 Yes 300mg Take 300 Un [place] 100 mg 2-13 mg by ity of tablet 00:00: mouth. [address] SERTraline 2020-08 Yes 300mg Take 300 Un [place] 100 mg 2-13 mg by ity of tablet 00:00: mouth. [address] SERTraline 2020-08 Yes 300mg Take 300 Un emrcedes 100 mg 2-13 mg by ity of tablet 00:00: mouth. [address] SERTraline 2020-08 Yes 300mg Take 300 Un [place] 100 mg 2-13 mg by ity of tablet 00:00: mouth. [facility] SERTraline 2020-08 Yes 300mg Take 300 Un [place] 100 mg 2-13 mg by ity of tablet 00:00: mouth. [facility] SERTraline 2020-08 Yes 300mg Take 300 Un [place] 100 mg 2-13 mg by ity of tablet 00:00: mouth. [facility] SERTraline 2020-08 Yes 300mg Take 300 Un [place] 100 mg 2-13 mg by ity of tablet 00:00: mouth. [facility] SERTraline 2020-08 Yes 300mg Take 300 Un [place] 100 mg 2-13 mg by ity of tablet 00:00: mouth. [facility] SERTraline 2020-08 Yes 300mg Take 300 Un [place] 100 mg 2-13 mg by ity of tablet 00:00: mouth. [facility] SERTraline 2020-08 Yes 300mg Take 300 Un [place] 100 mg 2-13 mg by ity of tablet 00:00: mouth. [facility] SERTraline 2020-08 Yes 300mg Take 300 Un [place] 100 mg 2-13 mg by ity of tablet 00:00: mouth. [facility] SERTraline 2020-08 Yes 300mg Take 300 Un [place] 100 mg 2-13 mg by ity of tablet 00:00: mouth. [facility] SERTraline 2020-08 Yes 300mg Take 300 Un [place] 100 mg 2-13 mg by ity of tablet 00:00: mouth. [facility] SERTraline 2020-08 Yes 300mg Take 300 Un [place] 100 mg 2-13 mg by ity of tablet 00:00: mouth. [facility] SERTraline 2020-08 Yes 300mg Take 300 Un [place] 100 mg 2-13 mg by ity of tablet 00:00: mouth. [facility] SERTraline 2020-08 Yes 300mg Take 300 Un [place] 100 mg 2-13 mg by ity of tablet 00:00: mouth. [facility] SERTraline 2020-08 Yes 300mg Take 300 Un [place] 100 mg 2-13 mg by ity of tablet 00:00: mouth. [facility] SERTraline 2020-08 Yes 300mg Take 300 Un [place] 100 mg 2-13 mg by ity of tablet 00:00: mouth. [facility] SERTraline 2020-08 Yes 300mg Take 300 Un [place] 100 mg 2-13 mg by ity of tablet 00:00: mouth. [facility] SERTraline 2020-08 Yes 300mg Take 300 Un [place] 100 mg 2-13 mg by ity of tablet 00:00: mouth. [facility] SERTraline 2020-08 Yes 300mg Take 300 Un [place] 100 mg 2-13 mg by ity of tablet 00:00: mouth. [facility] SERTraline 2020-08 Yes 300mg Take 300 Un [place] 100 mg 2-13 mg by ity of tablet 00:00: mouth. [facility] SERTraline 2020-08 Yes 300mg Take 300 Un [place] 100 mg 2-13 mg by ity of tablet 00:00: mouth. [facility] SERTraline 2020-08 Yes 300mg Take 300 Un [place] 100 mg 2-13 mg by ity of tablet 00:00: mouth. [facility] SERTraline 2020-08 Yes 300mg Take 300 Un [place] 100 mg 2-13 mg by ity of tablet 00:00: mouth. [facility] SERTraline 2020-08 Yes 300mg Take 300 Un [place] 100 mg 2-13 mg by ity of tablet 00:00: mouth. [facility] SERTraline 2020-08 Yes 300mg Take 300 Un [place] 100 mg 2-13 mg by ity of tablet 00:00: mouth. [facility] SERTraline 2020-08 Yes 300mg Take 300 Un [place] 100 mg 2-13 mg by ity of tablet 00:00: mouth. [facility] SERTraline 2020-08 Yes 300mg Take 300 Un [place] 100 mg 2-13 mg by ity of tablet 00:00: mouth. [facility] SERTraline 2020-08 Yes 300mg Take 300 Un [place] 100 mg 2-13 mg by ity of tablet 00:00: mouth. [facility] SERTraline 2020-08 Yes 300mg Take 300 Un [place] 100 mg 2-13 mg by ity of tablet 00:00: mouth. [facility] SERTraline 2020-08 Yes 300mg Take 300 Un [place] 100 mg 2-13 mg by ity of tablet 00:00: mouth. [facility] SERTraline 2020-08 Yes 300mg Take 300 Un [place] 100 mg 2-13 mg by ity of tablet 00:00: mouth. [facility] SERTraline 2020-08 Yes 300mg Take 300 Un [place] 100 mg 2-13 mg by ity of tablet 00:00: mouth. [facility] SERTraline 2020-08 Yes 300mg Take 300 Un [place] 100 mg 2-13 mg by ity of tablet 00:00: mouth. [facility] SERTraline 2020-08 Yes 300mg Take 300 Un [place] 100 mg 2-13 mg by ity of tablet 00:00: mouth. [facility] SERTraline 2020-08 Yes 300mg Take 300 Un [place] 100 mg 2-13 mg by ity of tablet 00:00: mouth. [facility] SERTraline 2020-08 Yes 300mg Take 300 Un [place] 100 mg 2-13 mg by ity of tablet 00:00: mouth. [facility] SERTraline 2020-08 Yes 300mg Take 300 Un [place] 100 mg 2-13 mg by ity of tablet 00:00: mouth. [facility] SERTraline 2020-08 Yes 300mg Take 300 Un [place] 100 mg 2-13 mg by ity of tablet 00:00: mouth. [facility] SERTraline 2020-08 Yes 300mg Take 300 Un [place] 100 mg 2-13 mg by ity of tablet 00:00: mouth. [facility] SERTraline 2020-08 Yes 300mg Take 300 Un [place] 100 mg 2-13 mg by ity of tablet 00:00: mouth. [facility] SERTraline 2020-08 Yes 300mg Take 300 Un [place] 100 mg 2-13 mg by ity of tablet 00:00: mouth. [address] SERTraline 2020-08 Yes 300mg Take 300 Un [place] 100 mg 2-13 mg by ity of tablet 00:00: mouth. [address] SERTraline 2020-08 Yes 300mg Take 300 Un [place] 100 mg 2-13 mg by ity of tablet 00:00: mouth. [facility] SERTraline 2020-08 Yes 300mg Take 300 Un [place] 100 mg 2-13 mg by ity of tablet 00:00: mouth. [facility] SERTraline 2020-08 Yes 300mg Take 300 Un [place] 100 mg 2-13 mg by ity of tablet 00:00: mouth. [facility] SERTraline 2020-08 Yes 300mg Take 300 Un [place] 100 mg 2-13 mg by ity of tablet 00:00: mouth. [facility] SERTraline 2020-08 Yes 300mg Take 300 Un [place] 100 mg 2-13 mg by ity of tablet 00:00: mouth. [facility] SERTraline 2020-08 Yes 300mg Take 300 Un [place] 100 mg 2-13 mg by ity of tablet 00:00: mouth. [facility] SERTraline 2020-08 Yes 300mg Take 300 Un [place] 100 mg 2-13 mg by ity of tablet 00:00: mouth. [facility] SERTraline 2020-08 Yes 300mg Take 300 Un [place] 100 mg 2-13 mg by ity of tablet 00:00: mouth. [facility] SERTraline 2020-08 Yes 300mg Take 300 Un [place] 100 mg 2-13 mg by ity of tablet 00:00: mouth. [facility] SERTraline 2020-08 Yes 300mg Take 300 Un [place] 100 mg 2-13 mg by ity of tablet 00:00: mouth. [facility] SERTraline 2020-08 Yes 300mg Take 300 Un [place] 100 mg 2-13 mg by ity of tablet 00:00: mouth. [facility] SERTraline 2020-08 Yes 300mg Take 300 Un [place] 100 mg 2-13 mg by ity of tablet 00:00: mouth. [facility] SERTraline 2020-08 Yes 300mg Take 300 Un [place] 100 mg 2-13 mg by ity of tablet 00:00: mouth. [facility] SERTraline 2020-08 Yes 300mg Take 300 Un [place] 100 mg 2-13 mg by ity of tablet 00:00: mouth. [facility] SERTraline 2020-08 Yes 300mg Take 300 Un [...] No Unknown 0-10 00:00: 00 benzonatate Yes [id number] 100mg Take 1 [facility] 100 mg 04-09 capsule by ity of capsule 00:00: mouth 3 00 (three) Medical times Branch daily as needed for Cough. bromphenira Yes [id number] 5mL Take 5 mL [facility] mine-pseudo 04-09 by mouth 4 it y of ephedrine-D 00:00: (four[place] (BROMFED 00 times Medical DM) 2-30-10 daily as Bran ch mg/5 mL needed for syrup Congestion /Allergies or Cough. albuterol Yes [id number] 2{puff} Inhale 2 [facility] 90 - Puffs ity of mcg/actuati 00:00: every 4 [place] as on inhaler 00 (four) Medical hours as Branch needed for Wheezing or Shortness of Breath. ondansetron Yes [id number] 4mg Take 1 [facility] (ZOFRAN - tablet by ity of ODT) 4 mg 00:00: mouth [place] disintegrat 00 every 8 Medic al ing tablet (eight) Branch hours as needed for Nausea and Vomiting (N/V). benzonatate 2020-0 Yes [id number] 100mg Take 1 [facility] 100 mg 9-02 capsule by ity of capsule 00:00: mouth 3 [place] 00 (three) Medical times Branch daily as needed for Cough. bromphenira 2020-0 Yes [id number] 5mL Take 5 mL [facility] mine-pseudo 9-02 by mouth 4 it y of ephedrine-D 00:00: (four) [place] (BROMFED 00 times Medical DM) 2-30-10 daily as Bran ch mg/5 mL needed for syrup Congestion /Allergies or Cough. albuterol 2020-0 Yes [id number] 2{puff} Inhale 2 [facility] 90 9-02 Puffs ity of mcg/actuati 00:00: every 4 [place] on inhaler 00 (four) Medical hours as Branch needed for Wheezing or Shortness of Breath. ondansetron 2020-0 Yes [id number] 4mg Take 1 [facility] (ZOFRAN 9-02 tablet by ity of ODT) 4 mg 00:00: mouth [place] disintegrat 00 every 8 Medic al ing tablet (eight) Branch hours as needed for Nausea and Vomiting (N/V). benzonatate 2020-0 Yes [id number] 100mg Take 1 [facility] 100 mg 9-02 capsule by ity of capsule 00:00: mouth 3 [place] 00 (three) Medical times Branch daily as needed for Cough. bromphenira 2020-0 Yes [id number] 5mL Take 5 mL [facility] mine-pseudo 9-02 by mouth 4 it y of ephedrine-D 00:00: (four) [place] (BROMFED 00 times Medical DM) 2-30-10 daily as Bran ch mg/5 mL needed for syrup Congestion /Allergies or Cough. albuterol 2020-0 Yes [id number] 2{puff} Inhale 2 [facility] 90 9-02 Puffs ity of mcg/actuati 00:00: every 4 [place] on inhaler 00 (four) Medical hours as Branch needed for Wheezing or Shortness of Breath. ondansetron 2020-0 Yes [id number] 4mg Take 1 [facility] (ZOFRAN 9-02 tablet by ity of ODT) 4 mg 00:00: mouth [place] disintegrat 00 every 8 Medic al ing tablet (eight) Branch hours as needed for Nausea and Vomiting (N/V). benzonatate 2020-0 Yes [id number] 100mg Take 1 [facility] 100 mg 9-02 capsule by ity of capsule 00:00: mouth 3 [place] 00 (three) Medical times Branch daily as needed for Cough. bromphenira 2020-0 Yes [id number] 5mL Take 5 mL [facility] mine-pseudo 9-02 by mouth 4 it y of ephedrine-D 00:00: (four) [place] (BROMFED 00 times Medical DM) 2-30-10 daily as Bran ch mg/5 mL needed for syrup Congestion /Allergies or Cough. albuterol 2020-0 Yes [id number] 2{puff} Inhale 2 [facility] 90 9-02 Puffs ity of mcg/actuati 00:00: every 4 [place] on inhaler 00 (four) Medical hours as Branch needed for Wheezing or Shortness of Breath. ondansetron 2020-0 Yes [id number] 4mg Take 1 [facility] (ZOFRAN 9-02 tablet by ity of ODT) 4 mg 00:00: mouth [place] disintegrat 00 every 8 Medic al ing tablet (eight) Branch hours as needed for Nausea and Vomiting (N/V). benzonatate 2020-0 Yes [id number] 100mg Take 1 [facility] 100 mg 9-02 capsule by ity of capsule 00:00: mouth 3 [place] 00 (three) Medical times Branch daily as needed for Cough. bromphenira 2020-0 Yes [id number] 5mL Take 5 mL [facility] mine-pseudo 9-02 by mouth 4 it y of ephedrine-D 00:00: (four) [place] (BROMFED 00 times Medical DM) 2-30-10 daily as Bran ch mg/5 mL needed for syrup Congestion /Allergies or Cough. albuterol 2020-0 Yes [id number] 2{puff} Inhale 2 [facility] 90 9-02 Puffs ity of mcg/actuati 00:00: every 4 [place] on inhaler 00 (four) Medical hours as Branch needed for Wheezing or Shortness of Breath. ondansetron 2020-0 Yes [id number] 4mg Take 1 [facility] (ZOFRAN 9-02 tablet by ity of ODT) 4 mg 00:00: mouth [place] disintegrat 00 every 8 Medic al ing tablet (eight) Branch hours as needed for Nausea and Vomiting (N/V). benzonatate 2020-0 Yes [id number] 100mg Take 1 [facility] 100 mg 9-02 capsule by ity of capsule 00:00: mouth 3 [place] 00 (three) Medical times Branch daily as needed for Cough. bromphenira 2020-0 Yes [id number] 5mL Take 5 mL [facility] mine-pseudo 9-02 by mouth 4 it y of ephedrine-D 00:00: (four) [place] (BROMFED 00 times Medical DM) 2-30-10 daily as Bran ch mg/5 mL needed for syrup Congestion /Allergies or Cough. albuterol 2020-0 Yes [id number] 2{puff} Inhale 2 [facility] 90 9-02 Puffs ity of mcg/actuati 00:00: every 4 [place] on inhaler 00 (four) Medical hours as Branch needed for Wheezing or Shortness of Breath. ondansetron 2020-0 Yes [id number] 4mg Take 1 [facility] (ZOFRAN 9-02 tablet by ity of ODT) 4 mg 00:00: mouth [place] disintegrat 00 every 8 Medic al ing tablet (eight) Branch hours as needed for Nausea and Vomiting (N/V). benzonatate 2020-0 Yes [id number] 100mg Take 1 [facility] 100 mg 9-02 capsule by ity of capsule 00:00: mouth 3 [place] 00 (three) Medical times Branch daily as needed for Cough. bromphenira 2020-0 Yes [id number] 5mL Take 5 mL [facility] mine-pseudo 9-02 by mouth 4 it y of ephedrine-D 00:00: (four) [place] (BROMFED 00 times Medical DM) 2-30-10 daily as Bran ch mg/5 mL needed for syrup Congestion /Allergies or Cough. albuterol 2020-0 Yes [id number] 2{puff} Inhale 2 [facility] 90 9-02 Puffs ity of mcg/actuati 00:00: every 4 [place] on inhaler 00 (four) Medical hours as Branch needed for Wheezing or Shortness of Breath. ondansetron 2020-0 Yes [id number] 4mg Take 1 [facility] (ZOFRAN 9-02 tablet by ity of ODT) 4 mg 00:00: mouth [place] disintegrat 00 every 8 Medic al ing tablet (eight) Branch hours as needed for Nausea and Vomiting (N/V). benzonatate 2020-0 Yes [id number] 100mg Take 1 [facility] 100 mg 9-02 capsule by ity of capsule 00:00: mouth 3 [place] 00 (three) Medical times Branch daily as needed for Cough. bromphenira 0 Yes [id number] 5mL Take 5 mL [facility] mine-pseudo 9-02 by mouth 4 it y of ephedrine-D 00:00: (four) [place] (BROMFED 00 times Medical DM) 2-30-10 daily as Bran ch mg/5 mL needed for syrup Congestion /Allergies or Cough. albuterol 0 Yes [id number] 2{puff} Inhale 2 [facility] 90 9-02 Puffs ity of mcg/actuati 00:00: every 4 [place] on inhaler 00 (four) Medical hours as Branch needed for Wheezing or Shortness of Breath. ondansetron Yes [id number] 4mg Take 1 [facility] (ZOFRAN 9-02 tablet by ity of ODT) 4 mg 00:00: mouth [place] disintegrat 00 every 8 Medic al ing tablet (eight) Branch hours as needed for Nausea and Vomiting (N/V). benzonatate 0 Yes [id number] 100mg Take 1 [facility] 100 mg 9-02 capsule by ity of capsule 00:00: mouth 3 [place] 00 (three) Medical times Branch daily as needed for Cough. bromphenira 0 Yes [id number] 5mL Take 5 mL [facility] mine-pseudo 9-02 by mouth 4 it y of ephedrine-D 00:00: (four) [place] (BROMFED 00 times Medical DM) 2-30-10 daily as Bran ch mg/5 mL needed for syrup Congestion /Allergies or Cough. albuterol 2020-0 Yes [id number] 2{puff} Inhale 2 [facility] 90 9-02 Puffs ity of mcg/actuati 00:00: every 4 [place] on inhaler 00 (four) Medical hours as Branch needed for Wheezing or Shortness of Breath. ondansetron 2020-0 Yes [id number] 4mg Take 1 [facility] (ZOFRAN 9-02 tablet by ity of ODT) 4 mg 00:00: mouth [place] disintegrat 00 every 8 Medic al ing tablet (eight) Branch hours as needed for Nausea and Vomiting (N/V). benzonatate 0 Yes [id number] 100mg Take 1 [facility] 100 mg 9-02 capsule by ity of capsule 00:00: mouth 3 [place] 00 (three) Medical times Branch daily as needed for Cough. bromphenira 0 Yes [id number] 5mL Take 5 mL [facility] mine-pseudo 9-02 by mouth 4 it y of ephedrine-D 00:00: (four) [place] (BROMFED 00 times Medical DM) 2-30-10 daily as Bran ch mg/5 mL needed for syrup Congestion /Allergies or Cough. albuterol Yes [id number] 2{puff} Inhale 2 [facility] 90 9-02 Puffs ity of mcg/actuati 00:00: every 4 [place] on inhaler 00 (four) Medical hours as Branch needed for Wheezing or Shortness of Breath. ondansetron Yes [id number] 4mg Take 1 [facility] (ZOFRAN 9-02 tablet by ity of ODT) 4 mg 00:00: mouth [place] disintegrat 00 every 8 Medic al ing tablet (eight) Branch hours as needed for Nausea and Vomiting (N/V). benzonatate Yes [id number] 100mg Take 1 [facility] 100 mg 9-02 capsule by ity of capsule 00:00: mouth 3 [place] 00 (three) Medical times Branch daily as needed for Cough. bromphenira 0 Yes [id number] 5mL Take 5 mL [facility] mine-pseudo 9-02 by mouth 4 it y of ephedrine-D 00:00: (four) [place] (BROMFED 00 times Medical DM) 2-30-10 daily as Bran ch mg/5 mL needed for syrup Congestion /Allergies or Cough. albuterol Yes [id number] 2{puff} Inhale 2 [facility] 90 9-02 Puffs ity of mcg/actuati 00:00: every 4 [place] as on inhaler 00 (four) Medical hours as Branch needed for Wheezing or Shortness of Breath. ondansetron 2021-0 Yes [id number] 4mg Take 1 [facility] (ZOFRAN 9-02 tablet by ity of ODT) 4 mg 00:00: mouth [place] disintegrat 00 every 8 Medic al ing tablet (eight) Branch hours as needed for Nausea and Vomiting (N/V). benzonatate 2020-0 Yes [id number] 100mg Take 1 [facility] 100 mg 9-02 capsule by ity of capsule 00:00: mouth 3 [place] 00 (three) Medical times Branch daily as needed for Cough. bromphenira 2020-0 Yes [id number] 5mL Take 5 mL [facility] mine-pseudo 9-02 by mouth 4 it y of ephedrine-D 00:00: (four) [place] (BROMFED 00 times Medical DM) 2-30-10 daily as Bran ch mg/5 mL needed for syrup Congestion /Allergies or Cough. albuterol Yes [id number] 2{puff} Inhale 2 [facility] 90 9-02 Puffs ity of mcg/actuati 00:00: every 4 [place] as on inhaler 00 (four) Medical hours as Branch needed for Wheezing or Shortness of Breath. ondansetron 0 Yes [id number] 4mg Take 1 [facility] (ZOFRAN 9-02 tablet by ity of ODT) 4 mg 00:00: mouth [place] disintegrat 00 every 8 Medic al ing tablet (eight) Branch hours as needed for Nausea and Vomiting (N/V). benzonatate 0 Yes [id number] 100mg Take 1 [facility] 100 mg 9-02 capsule by ity of capsule 00:00: mouth 3 (three) Medical times Branch daily as needed for Cough. bromphenira 0 Yes [id number] 5mL Take 5 mL [facility] mine-pseudo 9-02 by mouth 4 it y of ephedrine-D 00:00: (four) [place] (BROMFED 00 times Medical DM) 2-30-10 daily as Bran ch mg/5 mL needed for syrup Congestion /Allergies or Cough. albuterol 2020-0 Yes [id number] 2{puff} Inhale 2 [facility] 90 9-02 Puffs ity of mcg/actuati 00:00: every 4 [place] as on inhaler 00 (four) Medical hours as Branch needed for Wheezing or Shortness of Breath. ondansetron 2020-0 Yes [id number] 4mg Take 1 [facility] (ZOFRAN 9-02 tablet by ity of ODT) 4 mg 00:00: mouth [place] disintegrat 00 every 8 Medic al ing tablet (eight) Branch hours as needed for Nausea and Vomiting (N/V). benzonatate 2020-0 Yes [id number] 100mg Take 1 [facility] 100 mg 9-02 capsule by ity of capsule 00:00: mouth 3 [place] 00 (three) Medical times Branch daily as needed for Cough. bromphenira 2020-0 Yes [id number] 5mL Take 5 mL [facility] mine-pseudo 9-02 by mouth 4 it y of ephedrine-D 00:00: (four) [place] (BROMFED 00 times Medical DM) 2-30-10 daily as Bran ch mg/5 mL needed for syrup Congestion /Allergies or Cough. albuterol 2020-0 Yes [id number] 2{puff} Inhale 2 [facility] 90 9-02 Puffs ity of mcg/actuati 00:00: every 4 [place] as on inhaler 00 (four) Medical hours as Branch needed for Wheezing or Shortness of Breath. ondansetron 2020-0 Yes [id number] 4mg Take 1 [facility] (ZOFRAN 9-02 tablet by ity of ODT) 4 mg 00:00: mouth [place] disintegrat 00 every 8 Medic al ing tablet (eight) Branch hours as needed for Nausea and Vomiting (N/V). benzonatate 2020-0 Yes [id number] 100mg Take 1 [facility] 100 mg 9-02 capsule by ity of capsule 00:00: mouth 3 [place] 00 (three) Medical times Branch daily as needed for Cough. bromphenira 2020-0 Yes [id number] 5mL Take 5 mL [facility] mine-pseudo 9-02 by mouth 4 it y of ephedrine-D 00:00: (four) [place] (BROMFED 00 times Medical DM) 2-30-10 daily as Bran ch mg/5 mL needed for syrup Congestion /Allergies or Cough. albuterol 2020-0 Yes [id number] 2{puff} Inhale 2 [facility] 90 9-02 Puffs ity of mcg/actuati 00:00: every 4 [place] as on inhaler 00 (four) Medical hours as Branch needed for Wheezing or Shortness of Breath. ondansetron 2020-0 Yes [id number] 4mg Take 1 [facility] (ZOFRAN 9-02 tablet by ity of ODT) 4 mg 00:00: mouth [place] disintegrat 00 every 8 Medic al ing tablet (eight) Branch hours as needed for Nausea and Vomiting (N/V). benzonatate 2020-0 Yes [id number] 100mg Take 1 [facility] 100 mg 9-02 capsule by ity of capsule 00:00: mouth 3 [place] 00 (three) Medical times Branch daily as needed for Cough. bromphenira 2020-0 Yes [id number] 5mL Take 5 mL [facility] mine-pseudo 9-02 by mouth 4 it y of ephedrine-D 00:00: (four) [place] (BROMFED 00 times Medical DM) 2-30-10 daily as Bran ch mg/5 mL needed for syrup Congestion /Allergies or Cough. albuterol 2020-0 Yes [id number] 2{puff} Inhale 2 [facility] 90 9-02 Puffs ity of mcg/actuati 00:00: every 4 [place] as on inhaler 00 (four) Medical hours as Branch needed for Wheezing or Shortness of Breath. ondansetron 2020-0 Yes [id number] 4mg Take 1 [facility] (ZOFRAN 9-02 tablet by ity of ODT) 4 mg 00:00: mouth [place] disintegrat 00 every 8 Medic al ing tablet (eight) Branch hours as needed for Nausea and Vomiting (N/V). benzonatate 2020-0 Yes [id number] 100mg Take 1 [facility] 100 mg 9-02 capsule by ity of capsule 00:00: mouth 3 [place] 00 (three) Medical times Branch daily as needed for Cough. bromphenira 2020-0 Yes [id number] 5mL Take 5 mL [facility] mine-pseudo 9-02 by mouth 4 it y of ephedrine-D 00:00: (four) [place] [facility] (BROMFED 00 times Medical DM) 2-30-10 daily as Bran ch mg/5 mL needed for syrup Congestion /Allergies or Cough. albuterol 2020-0 Yes [id number] 2{puff} Inhale 2 [facility] 90 9-02 Puffs ity of mcg/actuati 00:00: every 4 [place] as on inhaler 00 (four) Medical hours as Branch needed for Wheezing or Shortness of Breath. ondansetron 2020-0 Yes [id number] 4mg Take 1 [facility] (ZOFRAN 9-02 tablet by ity of ODT) 4 mg 00:00: mouth [place] disintegrat 00 every 8 Medic al ing tablet (eight) Branch hours as needed for Nausea and Vomiting (N/V). benzonatate 2020-0 Yes [id number] 100mg Take 1 [facility] 100 mg 9-02 capsule by ity of capsule 00:00: mouth 3 [place] 00 (three) Medical times Branch daily as needed for Cough. bromphenira 2020-0 Yes [id number] 5mL Take 5 mL [facility] mine-pseudo 9-02 by mouth 4 it y of ephedrine-D 00:00: (four) [place] (BROMFED 00 times Medical DM) 2-30-10 daily as Bran ch mg/5 mL needed for syrup Congestion /Allergies or Cough. albuterol 2020-0 Yes [id number] 2{puff} Inhale 2 [facility] 90 9-02 Puffs ity of mcg/actuati 00:00: every 4 [place] as on inhaler 00 (four) Medical hours as Branch needed for Wheezing or Shortness of Breath. ondansetron 2020-0 Yes [id number] 4mg Take 1 [facility] (ZOFRAN 9-02 tablet by ity of ODT) 4 mg 00:00: mouth [place] disintegrat 00 every 8 Medic al ing tablet (eight) Branch hours as needed for Nausea and Vomiting (N/V). benzonatate 2020-0 Yes [id number] 100mg Take 1 [facility] 100 mg 9-02 capsule by [facility]y of capsule 00:00: mouth 3 [place] 00 (three) Medical times Branch daily as needed for Cough. bromphenira 2020-0 Yes [id number] 5mL Take 5 mL [facility] mine-pseudo 9-02 by mouth 4 it y of ephedrine-D 00:00: (four) [place] [facility] (BROMFED 00 times Medical DM) 2-30-10 daily as Bran ch mg/5 mL needed for syrup Congestion /Allergies or Cough. albuterol 2020-0 Yes [id number] 2{puff} Inhale 2 [facility] 90 9-02 Puffs ity of mcg/actuati 00:00: every 4 [place] [facility] on inhaler 00 (four) Medical hours as Branch needed for Wheezing or Shortness of Breath. ondansetron 2020-0 Yes [id number] 4mg Take 1 [facility] (ZOFRAN 9-02 tablet by ity of ODT) 4 mg 00:00: mouth [place] disintegrat 00 every 8 Medic al ing tablet (eight) Branch hours as needed for Nausea and Vomiting (N/V). benzonatate 2020-0 Yes [id number] 100mg Take 1 [facility] 100 mg 9-02 capsule by ity of capsule 00:00: mouth 3 [place] 00 (three) Medical times Branch daily as needed for Cough. bromphenira 2020-0 Yes [id number] 5mL Take 5 mL [facility] mine-pseudo 9-02 by mouth 4 [facility] y of ephedrine-D 00:00: (four) [place] [facility] ([facility]OMF[facility] 00 times Medical DM) 2-30-10 daily as Bran ch mg/5 mL needed for syrup Congestion /Allergies or Cough. albuterol 2020-0 Yes [id number] 2{puff} Inhale 2 [facility] 90 9-02 Puffs ity of mcg/actuati 00:00: every 4 [place] [facility] inhaler 00 (four) Medical hours as Branch needed for Wheezing or Shortness of Breath. ondansetron 2020-0 Yes [id number] 4mg Take 1 [facility] (ZOFRAN 9-02 tablet by ity of ODT) 4 mg 00:00: mouth [place] disintegrat 00 every 8 Medic al ing tablet (eight) Branch hours as needed for Nausea and Vomiting (N/V). benzonatate 2020-0 Yes [id number] 100mg Take 1 [facility] 100 mg 9-02 capsule by ity of capsule 00:00: mouth 3 [place] 00 (three) Medical times Branch daily as needed for Cough. bromphenira 2020-0 Yes [id number] 5mL Take 5 mL [facility] mine-pseudo 9-02 by mouth 4 [facility] y of ephedrine-D 00:00: (four) [place] [facility] (BROMFED 00 times Medical DM) 2-30-10 daily as Bran ch mg/5 mL needed for syrup Congestion /Allergies or Cough. albuterol 2020-0 Yes [id number] 2{puff} Inhale 2 [facility] 90 9-02 Puffs ity of mcg/actuati 00:00: every 4 [place] [facility] inhaler 00 (four) Medical hours as Branch needed for Wheezing or Shortness of Breath. ondansetron 2020-0 Yes [id number] 4mg Take 1 [facility] (ZOFRAN 9-02 tablet by ity of ODT) 4 mg 00:00: mouth [place] disintegrat 00 every 8 Medic al ing tablet (eight) Branch hours as needed for Nausea and Vomiting (N/V). benzonatate 202-0 Yes [id number] 100mg Take 1 [facility] 100 mg 9-02 capsule by [facility]y of capsule 00:00: mouth 3 [place] 00 (three) Medical times Branch daily as needed for Cough. bromphenira 2020-0 Yes [id number] 5mL Take 5 mL [facility] mine-pseudo 9-02 by mouth 4 [facility] y of ephedrine-D 00:00: (four) [place] [facility] ([facility]OMF[facility] 00 times Medical DM) 2-30-10 daily as Bran ch mg/5 mL needed for syrup Congestion /Allergies or Cough. albuterol 2020-0 Yes [id number] 2{puff} Inhale 2 [facility] 90 9-02 Puffs ity of mcg/actuati 00:00: every 4 [place] [facility] inhaler 00 (four) Medical hours as Branch needed for Wheezing or Shortness of Breath. ondansetron 2020-0 Yes [id number] 4mg Take 1 [facility] (ZOFRAN 9-02 tablet by ity of ODT) 4 mg 00:00: mouth [place] disintegrat 00 every 8 Medic al ing tablet (eight) Branch hours as needed for Nausea and Vomiting (N/V). benzonatate 2020-0 Yes [id number] 100mg Take 1 [facility] 100 mg 9-02 capsule by ity of capsule 00:00: mouth 3 [place] 00 (three) Medical times Branch daily as needed for Cough. bromphenira 2020-0 Yes [id number] 5mL Take 5 mL [facility] mine-pseudo 9-02 by mouth 4 it y of ephedrine-D 00:00: (four) [place] [facility] (BROMFED 00 times Medical DM) 2-30-10 daily as Bran ch mg/5 mL needed for syrup Congestion /Allergies or Cough. albuterol 2020-0 Yes [id number] 2{puff} Inhale 2 [facility] 90 9-02 Puffs ity of mcg/actuati 00:00: every 4 [place] [facility] inhaler 00 (four) Medical hours as Branch needed for Wheezing or Shortness of Breath. ondansetron 2020-0 Yes [id number] 4mg Take 1 [facility] (ZOFRAN 9-02 tablet by ity of ODT) 4 mg 00:00: mouth [place] disintegrat 00 every 8 Medic al ing tablet (eight) Branch hours as needed for Nausea and Vomiting (N/V). benzonatate 2020-0 Yes [id number] 100mg Take 1 [facility] 100 mg 9-02 capsule by ity of capsule 00:00: mouth 3 [place] 00 (three) Medical times Branch daily as needed for Cough. bromphenira 2020-0 Yes [id number] 5mL Take 5 mL [facility] mine-pseudo 9-02 by mouth 4 it y of ephedrine-D 00:00: (four) [place] [facility] (BROMFED 00 times Medical DM) 2-30-10 daily as Bran ch mg/5 mL needed for syrup Congestion /Allergies or Cough. albuterol 2020-0 Yes [id number] 2{puff} Inhale 2 [facility] 90 9-02 Puffs ity of mcg/actuati 00:00: every 4 [place] [facility] inhaler 00 (four) Medical hours as Branch needed for Wheezing or Shortness of Breath. ondansetron 2020-0 Yes [id number] 4mg Take 1 [facility] (ZOFRAN 9-02 tablet by ity of ODT) 4 mg 00:00: mouth [place] disintegrat 00 every 8 Medic al ing tablet (eight) Branch hours as needed for Nausea and Vomiting (N/V). benzonatate 2020-0 Yes [id number] 100mg Take 1 [facility] 100 mg 9-02 capsule by ity of capsule 00:00: mouth 3 [place] 00 (three) Medical times Branch daily as needed for Cough. bromphenira 2020-0 Yes [id number] 5mL Take 5 mL [facility] mine-pseudo 9-02 by mouth 4 it y of ephedrine-D 00:00: (four) [place] [facility] (BROMFED 00 times Medical DM) 2-30-10 daily as Bran ch mg/5 mL needed for syrup Congestion /Allergies or Cough. albuterol 2021-0 Yes [id number] 2{puff} Inhale 2 [facility] 90 9-02 Puffs ity of mcg/actuati 00:00: every 4 [place] [facility] inhaler 00 (four) Medical hours as Branch needed for Wheezing or Shortness of Breath. ondansetron 0 Yes [id number] 4mg Take 1 [facility] (ZOFRAN 9-02 tablet by ity of ODT) 4 mg 00:00: mouth [place] disintegrat 00 every 8 Medic al ing tablet (eight) Branch hours as needed for Nausea and Vomiting (N/V). benzonatate 0 Yes [id number] 100mg Take 1 [facility] 100 mg 9-02 capsule by ity of capsule 00:00: mouth 3 [place] 00 (three) Medical times Branch daily as needed for Cough. bromphenira 0 Yes [id number] 5mL Take 5 mL [facility] mine-pseudo 9-02 by mouth 4 [facility] y of ephedrine-D 00:00: (four) [place] [facility] ([facility]OMF[facility] 00 times Medical DM) 2-30-10 daily as Bran ch mg/5 mL needed for syrup Congestion /Allergies or Cough. albuterol Yes [id number] 2{puff} Inhale 2 [facility] 90 9-02 Puffs ity of mcg/actuati 00:00: every 4 [place] [facility] inhaler 00 (four) Medical hours as Branch needed for Wheezing or Shortness of Breath. ondansetron Yes [id number] 4mg Take 1 [facility] (ZOFRAN 9-02 tablet by ity of ODT) 4 mg 00:00: mouth [place] disintegrat 00 every 8 Medic al ing tablet (eight) Branch hours as needed for Nausea and Vomiting (N/V). benzonatate 0 Yes [id number] 100mg Take 1 [facility] 100 mg 9-02 capsule by ity of capsule 00:00: mouth 3 [place] 00 (three) Medical times Branch daily as needed for Cough. bromphenira 0 Yes [id number] 5mL Take 5 mL [facility] mine-pseudo 9-02 by mouth 4 it y of ephedrine-D 00:00: (four) [place] [facility] ([facility]OMF[facility] 00 times Medical DM) 2-30-10 daily as Bran ch mg/5 mL needed for syrup Congestion /Allergies or Cough. albuterol 2020-0 Yes [id number] 2{puff} Inhale 2 [facility] 90 9-02 Puffs ity of mcg/actuati 00:00: every 4 [place] [facility] inhaler 00 (four) Medical hours as Branch needed for Wheezing or Shortness of Breath. ondansetron 2020-0 Yes [id number] 4mg Take 1 [facility] (ZOFRAN 9-02 tablet by ity of ODT) 4 mg 00:00: mouth [place] disintegrat 00 every 8 Medic al ing tablet (eight) Branch hours as needed for Nausea and Vomiting (N/V). benzonatate 2020-0 Yes [id number] 100mg Take 1 [facility] 100 mg 9-02 capsule by ity of capsule 00:00: mouth 3 [place] 00 (three) Medical times Branch daily as needed for Cough. bromphenira 2020-0 Yes [id number] 5mL Take 5 mL [facility] mine-pseudo 9-02 by mouth 4 it y of ephedrine-D 00:00: (four) [place] [facility] (BROMFED 00 times Medical DM) 2-30-10 daily as Bran ch mg/5 mL needed for syrup Congestion /Allergies or Cough. albuterol 2020-0 Yes [id number] 2{puff} Inhale 2 [facility] 90 9-02 Puffs ity of mcg/actuati 00:00: every 4 [place] [facility] inhaler 00 (four) Medical hours as Branch needed for Wheezing or Shortness of Breath. ondansetron 2020-0 Yes [id number] 4mg Take 1 [facility] (ZOFRAN 9-02 tablet by ity of ODT) 4 mg 00:00: mouth [place] disintegrat 00 every 8 Medic al ing tablet (eight) Branch hours as needed for Nausea and Vomiting (N/V). benzonatate 2020-0 Yes [id number] 100mg Take 1 [facility] 100 mg 9-02 capsule by ity of capsule 00:00: mouth 3 [place] 00 (three) Medical times Branch daily as needed for Cough. bromphenira 2020-0 Yes [id number] 5mL Take 5 mL [facility] mine-pseudo 9-02 by mouth 4 it y of ephedrine-D 00:00: (four) [place] [facility] (BROMFED 00 times Medical DM) 2-30-10 daily as Bran ch mg/5 mL needed for syrup Congestion /Allergies or Cough. albuterol 2020-0 Yes [id number] 2{puff} Inhale 2 [facility] 90 9-02 Puffs ity of mcg/actuati 00:00: every 4 [place] [facility] inhaler 00 (four) Medical hours as Branch needed for Wheezing or Shortness of Breath. ondansetron 2020-0 Yes [id number] 4mg Take 1 [facility] (ZOFRAN 9-02 tablet by ity of ODT) 4 mg 00:00: mouth [place] disintegrat 00 every 8 Medic al ing tablet (eight) Branch hours as needed for Nausea and Vomiting (N/V). benzonatate 2020-0 Yes [id number] 100mg Take 1 [facility] 100 mg 9-02 capsule by ity of capsule 00:00: mouth 3 [place] 00 (three) Medical times Branch daily as needed for Cough. bromphenira 2020-0 Yes [id number] 5mL Take 5 mL [facility] mine-pseudo 9-02 by mouth 4 it y of ephedrine-D 00:00: (four) [place] [facility] (BROMFED 00 times Medical DM) 2-30-10 daily as Bran ch mg/5 mL needed for syrup Congestion /Allergies or Cough. albuterol 2020-0 Yes [id number] 2{puff} Inhale 2 [facility] 90 9-02 Puffs ity of mcg/actuati 00:00: every 4 [place] [facility] on inhaler 00 (four) Medical hours as Branch needed for Wheezing or Shortness of Breath. ondansetron 2020-0 Yes [id number] 4mg Take 1 [facility] (ZOFRAN 9-02 tablet by ity of ODT) 4 mg 00:00: mouth [place] disintegrat 00 every 8 Medic al ing tablet (eight) Branch hours as needed for Nausea and Vomiting (N/V). benzonatate 2020-0 Yes [id number] 100mg Take 1 [facility] 100 mg 9-02 capsule by ity of capsule 00:00: mouth 3 [place] 00 (three) Medical times Branch daily as needed for Cough. bromphenira 2020-0 Yes [id number] 5mL Take 5 mL [facility] mine-pseudo 9-02 by mouth 4 it y of ephedrine-D 00:00: (four) [place] [facility] (BROMFED 00 times Medical DM) 2-30-10 daily as Bran ch mg/5 mL needed for syrup Congestion /Allergies or Cough. albuterol 2020-0 Yes [id number] 2{puff} Inhale 2 [facility] 90 9-02 Puffs ity of mcg/actuati 00:00: every 4 [place] [facility] on inhaler 00 (four) Medical hours as Branch needed for Wheezing or Shortness of Breath. ondansetron 0 Yes [id number] 4mg Take 1 [facility] (ZOFRAN 9-02 tablet by ity of ODT) 4 mg 00:00: mouth [place] disintegrat 00 every 8 Medic al ing tablet (eight) Branch hours as needed for Nausea and Vomiting (N/V). benzonatate 2020-0 Yes [id number] 100mg Take 1 [facility] 100 mg 9-02 capsule by ity of capsule 00:00: mouth 3 [place] 00 (three) Medical times Branch daily as needed for Cough. bromphenira 2020-0 Yes [id number] 5mL Take 5 mL [facility] mine-pseudo 9-02 by mouth 4 it y of ephedrine-D 00:00: (four) [place] [facility] (BROMFED 00 times Medical DM) 2-30-10 daily as Bran ch mg/5 mL needed for syrup Congestion /Allergies or Cough. albuterol 0 Yes [id number] 2{puff} Inhale 2 [facility] 90 9-02 Puffs ity of mcg/actuati 00:00: every 4 [place] [facility] on inhaler 00 (four) Medical hours as Branch needed for Wheezing or Shortness of Breath. ondansetron 0 Yes [id number] 4mg Take 1 [facility] (ZOFRAN 9-02 tablet by ity of ODT) 4 mg 00:00: mouth [place] disintegrat 00 every 8 Medic al ing tablet (eight) Branch hours as needed for Nausea and Vomiting (N/V). benzonatate 2020-0 Yes [id number] 100mg Take 1 [facility] 100 mg 9-02 capsule by ity of capsule 00:00: mouth 3 [place] 00 (three) Medical times Branch daily as needed for Cough. bromphenira 2020-0 Yes [id number] 5mL Take 5 mL [facility] mine-pseudo 9-02 by mouth 4 it y of ephedrine-D 00:00: (four) [place] [facility] (BROMFED 00 times Medical DM) 2-30-10 daily as Bran ch mg/5 mL needed for syrup Congestion /Allergies or Cough. albuterol 2020-0 Yes [id number] 2{puff} Inhale 2 [facility] 90 9-02 Puffs ity of mcg/actuati 00:00: every 4 [place] [facility] on inhaler 00 (four) Medical hours as Branch needed for Wheezing or Shortness of Breath. ondansetron 2020-0 Yes [id number] 4mg Take 1 [facility] (ZOFRAN 9-02 tablet by ity of ODT) 4 mg 00:00: mouth [place] disintegrat 00 every 8 Medic al ing tablet (eight) Branch hours as needed for Nausea and Vomiting (N/V). benzonatate 2020-0 Yes [id number] 100mg Take 1 [facility] 100 mg 9-02 capsule by ity of capsule 00:00: mouth 3 [place] 00 (three) Medical times Branch daily as needed for Cough. bromphenira 2020-0 Yes [id number] 5mL Take 5 mL [facility] mine-pseudo 9-02 by mouth 4 it y of ephedrine-D 00:00: (four) [place] [facility] (BROMFED 00 times Medical DM) 2-30-10 daily as Bran ch mg/5 mL needed for syrup Congestion /Allergies or Cough. albuterol 2020-0 Yes [id number] 2{puff} Inhale 2 [facility] 90 9-02 Puffs ity of mcg/actuati 00:00: every 4 [place] [facility] on inhaler 00 (four) Medical hours as Branch needed for Wheezing or Shortness of Breath. ondansetron 2020-0 Yes [id number] 4mg Take 1 [facility] (ZOFRAN 9-02 tablet by ity of ODT) 4 mg 00:00: mouth [place] disintegrat 00 every 8 Medic al ing tablet (eight) Branch hours as needed for Nausea and Vomiting (N/V). benzonatate 2020-0 Yes [id number] 100mg Take 1 [facility] 100 mg 9-02 capsule by ity of capsule 00:00: mouth 3 [place] 00 (three) Medical times Branch daily as needed for Cough. bromphenira 2020-0 Yes [id number] 5mL Take 5 mL [facility] mine-pseudo 9-02 by mouth 4 it y of ephedrine-D 00:00: (four) [place] [facility] (BROMFED 00 times Medical DM) 2-30-10 daily as Bran ch mg/5 mL needed for syrup Congestion /Allergies or Cough. albuterol 2020-0 Yes [id number] 2{puff} Inhale 2 [facility] 90 9-02 Puffs ity of mcg/actuati 00:00: every 4 [place] [facility] on inhaler 00 (four) Medical hours as Branch needed for Wheezing or Shortness of Breath. ondansetron 2020-0 Yes [id number] 4mg Take 1 [facility] (ZOFRAN 9-02 tablet by ity of ODT) 4 mg 00:00: mouth [place] disintegrat 00 every 8 Medic al ing tablet (eight) Branch hours as needed for Nausea and Vomiting (N/V). benzonatate 2020-0 Yes [id number] 100mg Take 1 [facility] 100 mg 9-02 capsule by ity of capsule 00:00: mouth 3 [place] 00 (three) Medical times Branch daily as needed for Cough. bromphenira 2020-0 Yes [id number] 5mL Take 5 mL [facility] mine-pseudo 9-02 by mouth 4 it y of ephedrine-D 00:00: (four) [place] [facility] (BROMFED 00 times Medical DM) 2-30-10 daily as Bran ch mg/5 mL needed for syrup Congestion /Allergies or Cough. albuterol 2020-0 Yes [id number] 2{puff} Inhale 2 [facility] 90 9-02 Puffs ity of mcg/actuati 00:00: every 4 [place] [facility] on inhaler 00 (four) Medical hours as Branch needed for Wheezing or Shortness of Breath. ondansetron 2020-0 Yes [id number] 4mg Take 1 [facility] (ZOFRAN 9-02 tablet by ity of ODT) 4 mg 00:00: mouth [place] disintegrat 00 every 8 Medic al ing tablet (eight) Branch hours as needed for Nausea and Vomiting (N/V). benzonatate 2020-0 Yes [id number] 100mg Take 1 [facility] 100 mg 9-02 capsule by ity of capsule 00:00: mouth 3 [place] 00 (three) Medical times Branch daily as needed for Cough. bromphenira 2020-0 Yes [id number] 5mL Take 5 mL [facility] mine-pseudo 9-02 by mouth 4 it y of ephedrine-D 00:00: (four) [place] [facility] (BROMFED 00 times Medical DM) 2-30-10 daily as Bran ch mg/5 mL needed for syrup Congestion /Allergies or Cough. albuterol 2020-0 Yes [id number] 2{puff} Inhale 2 [facility] 90 9-02 Puffs ity of mcg/actuati 00:00: every 4 [place] [facility] on inhaler 00 (four) Medical hours as Branch needed for Wheezing or Shortness of Breath. ondansetron 2020-0 Yes [id number] 4mg Take 1 [facility] (ZOFRAN 9-02 tablet by ity of ODT) 4 mg 00:00: mouth [place] disintegrat 00 every 8 Medic al ing tablet (eight) Branch hours as needed for Nausea and Vomiting (N/V). benzonatate 2020-0 Yes [id number] 100mg Take 1 [facility] 100 mg 9-02 capsule by ity of capsule 00:00: mouth 3 [place] 00 (three) Medical times Branch daily as needed for Cough. bromphenira 2020-0 Yes [id number] 5mL Take 5 mL [facility] mine-pseudo 9-02 by mouth 4 it y of ephedrine-D 00:00: (four) [place] [facility] (BROMFED 00 times Medical DM) 2-30-10 daily as Bran ch mg/5 mL needed for syrup Congestion /Allergies or Cough. albuterol 2020-0 Yes [id number] 2{puff} Inhale 2 [facility] 90 9-02 Puffs ity of mcg/actuati 00:00: every 4 [place] [facility] on inhaler 00 (four) Medical hours as Branch needed for Wheezing or Shortness of Breath. ondansetron 2020-0 Yes [id number] 4mg Take 1 [facility] (ZOFRAN 9-02 tablet by ity of ODT) 4 mg 00:00: mouth [place] disintegrat 00 every 8 Medic al ing tablet (eight) Branch hours as needed for Nausea and Vomiting (N/V). benzonatate 2020-0 Yes [id number] 100mg Take 1 [facility] 100 mg 9-02 capsule by ity of capsule 00:00: mouth 3 [place] 00 (three) Medical times Branch daily as needed for Cough. bromphenira 2020-0 Yes [id number] 5mL Take 5 mL [facility] mine-pseudo 9-02 by mouth 4 it y of ephedrine-D 00:00: (four) [place] [facility] (BROMFED 00 times Medical DM) 2-30-10 daily as Bran ch mg/5 mL needed for syrup Congestion /Allergies or Cough. albuterol Yes [id number] 2{puff} Inhale 2 [facility] 90 9-02 Puffs ity of mcg/actuati 00:00: every 4 [place] [facility] on inhaler 00 (four) Medical hours as Branch needed for Wheezing or Shortness of Breath. ondansetron 2020-0 Yes [id number] 4mg Take 1 [facility] (ZOFRAN 9-02 tablet by ity of ODT) 4 mg 00:00: mouth [place] disintegrat 00 every 8 Medic al ing tablet (eight) Branch hours as needed for Nausea and Vomiting (N/V). benzonatate 2020-0 Yes [id number] 100mg Take 1 [facility] 100 mg 9-02 capsule by ity of capsule 00:00: mouth 3 [place] 00 (three) Medical times Branch daily as needed for Cough. bromphenira 2020-0 Yes [id number] 5mL Take 5 mL [facility] mine-pseudo 9-02 by mouth 4 it y of ephedrine-D 00:00: (four) [place] [facility] (BROMFED 00 times Medical DM) 2-30-10 daily as Bran ch mg/5 mL needed for syrup Congestion /Allergies or Cough. albuterol Yes [id number] 2{puff} Inhale 2 [facility] 90 9-02 Puffs ity of mcg/actuati 00:00: every 4 [place] [facility] on inhaler 00 (four) Medical hours as Branch needed for Wheezing or Shortness of Breath. ondansetron 0 Yes [id number] 4mg Take 1 [facility] (ZOFRAN 9-02 tablet by ity of ODT) 4 mg 00:00: mouth [place] disintegrat 00 every 8 Medic al ing tablet (eight) Branch hours as needed for Nausea and Vomiting (N/V). benzonatate 2020-0 Yes [id number] 100mg Take 1 [facility] 100 mg 9-02 capsule by ity of capsule 00:00: mouth 3 [place] 00 (three) Medical times Branch daily as needed for Cough. bromphenira 2020-0 Yes [id number] 5mL Take 5 mL [facility] mine-pseudo 9-02 by mouth 4 it y of ephedrine-D 00:00: (four) [place] [facility] (BROMFED 00 times Medical DM) 2-30-10 daily as Bran ch mg/5 mL needed for syrup Congestion /Allergies or Cough. albuterol Yes [id number] 2{puff} Inhale 2 [facility] 90 9-02 Puffs ity of mcg/actuati 00:00: every 4 [place] [facility] on inhaler 00 (four) Medical hours as Branch needed for Wheezing or Shortness of Breath. ondansetron Yes [id number] 4mg Take 1 [facility] (ZOFRAN 9-02 tablet by ity of ODT) 4 mg 00:00: mouth [place] disintegrat 00 every 8 Medic al ing tablet (eight) Branch hours as needed for Nausea and Vomiting (N/V). benzonatate 0 Yes [id number] 100mg Take 1 [facility] 100 mg 9-02 capsule by ity of capsule 00:00: mouth 3 [place] 00 (three) Medical times Branch daily as needed for Cough. bromphenira 0 Yes [id number] 5mL Take 5 mL [facility] mine-pseudo 9-02 by mouth 4 it y of ephedrine-D 00:00: (four) [place] [facility] (BROMF[facility] 00 times Medical DM) 2-30-10 daily as Bran ch mg/5 mL needed for syrup Congestion /Allergies or Cough. albuterol Yes [id number] 2{puff} Inhale 2 [facility] 90 9-02 Puffs ity of mcg/actuati 00:00: every 4 [place] [facility] on inhaler 00 (four) Medical hours as Branch needed for Wheezing or Shortness of Breath. ondansetron 0 Yes [id number] 4mg Take 1 [facility] (ZOFRAN 9-02 tablet by ity of ODT) 4 mg 00:00: mouth [place] disintegrat 00 every 8 Medic al ing tablet (eight) Branch hours as needed for Nausea and Vomiting (N/V). benzonatate 2020-0 Yes [id number] 100mg Take 1 [facility] 100 mg 9-02 capsule by ity of capsule 00:00: mouth 3 [place] 00 (three) Medical times Branch daily as needed for Cough. bromphenira 2020-0 Yes [id number] 5mL Take 5 mL [facility] mine-pseudo 9-02 by mouth 4 it y of ephedrine-D 00:00: (four) [place] [facility] (BROMFED 00 times Medical DM) 2-30-10 daily as Bran ch mg/5 mL needed for syrup Congestion /Allergies or Cough. albuterol 0 Yes [id number] 2{puff} Inhale 2 [facility] 90 9-02 Puffs ity of mcg/actuati 00:00: every 4 [place] [facility] on inhaler 00 (four) Medical hours as Branch needed for Wheezing or Shortness of Breath. ondansetron 0 Yes [id number] 4mg Take 1 [facility] (ZOFRAN 9-02 tablet by ity of ODT) 4 mg 00:00: mouth [place] disintegrat 00 every 8 Medic al ing tablet (eight) Branch hours as needed for Nausea and Vomiting (N/V). benzonatate 2020-0 Yes [id number] 100mg Take 1 [facility] 100 mg 9-02 capsule by ity of capsule 00:00: mouth 3 (three) Medical times Branch daily as needed for Cough. bromphenira 0 Yes [id number] 5mL Take 5 mL [facility] mine-pseudo 9-02 by mouth 4 it y of ephedrine-D 00:00: (four) [place] [facility] (BROM[facility] 00 times Medical DM) 2-30-10 daily as [facility] ch mg/5 mL needed for syrup Congestion /Allergies or Cough. albuterol Yes [id number] 2{puff} Inhale 2 [facility] 90 9-02 Puffs ity of mcg/actuati 00:00: every 4 [place] [facility] on inhaler 00 (four) Medical hours as Branch needed for Wheezing or Shortness of Breath. ondansetron 2020-0 Yes [id number] 4mg Take 1 [facility] (ZOFRAN 9-02 tablet by ity of ODT) 4 mg 00:00: mouth [place] disintegrat 00 every 8 Medic al ing tablet (eight) Branch hours as needed for Nausea and Vomiting (N/V). benzonatate 2020-0 Yes [id number] 100mg Take 1 [facility] 100 mg 9-02 capsule by ity of capsule 00:00: mouth 3 [place] 00 (three) Medical times Branch daily as needed for Cough. bromphenira 2020-0 Yes [id number] 5mL Take 5 mL [facility] mine-pseudo 9-02 by mouth 4 it y of ephedrine-D 00:00: (four) [place] [facility] (BROMF[facility] 00 times Medical DM) 2-30-10 daily as [facility] ch mg/5 mL needed for syrup Congestion /Allergies or Cough. albuterol 2020-0 Yes [id number] 2{puff} Inhale 2 [facility] 90 9-02 Puffs ity of mcg/actuati 00:00: every 4 [place] [facility] on inhaler 00 (four) Medical hours as Branch needed for Wheezing or Shortness of Breath. ondansetron 2020-0 Yes [id number] 4mg Take 1 [facility] (ZOFRAN 9-02 tablet by ity of ODT) 4 mg 00:00: mouth [place] disintegrat 00 every 8 Medic al ing tablet (eight) Branch hours as needed for Nausea and Vomiting (N/V). benzonatate 2020-0 Yes [id number] 100mg Take 1 [facility] 100 mg 9-02 capsule by ity of capsule 00:00: mouth 3 [place] 00 (three) Medical times Branch daily as needed for Cough. bromphenira 2020-0 Yes [id number] 5mL Take 5 mL [facility] mine-pseudo 9-02 by mouth 4 it y of ephedrine-D 00:00: (four) [place] [facility] (BROMF[facility] 00 times Medical DM) 2-30-10 daily as [facility] ch mg/5 mL needed for syrup Congestion /Allergies or Cough. albuterol 2020-0 Yes [id number] 2{puff} Inhale 2 [facility] 90 9-02 Puffs ity of mcg/actuati 00:00: every 4 [place] [facility] on inhaler 00 (four) Medical hours as Branch needed for Wheezing or Shortness of Breath. ondansetron 2020-0 Yes [id number] 4mg Take 1 [facility] (ZOFRAN 9-02 tablet by ity of ODT) 4 mg 00:00: mouth [place] disintegrat 00 every 8 Medic al ing tablet (eight) Branch hours as needed for Nausea and Vomiting (N/V). benzonatate 2020-0 Yes [id number] 100mg Take 1 [facility] 100 mg 9-02 capsule by ity of capsule 00:00: mouth 3 [place] 00 (three) Medical times Branch daily as needed for Cough. bromphenira 2020-0 Yes [id number] 5mL Take 5 mL [facility] mine-pseudo 9-02 by mouth 4 it y of ephedrine-D 00:00: (four) [place] [facility] (BROMF[facility] 00 times Medical DM) 2-30-10 daily as Bran ch mg/5 mL needed for syrup Congestion /Allergies or Cough. albuterol Yes [id number] 2{puff} Inhale 2 [facility] 90 9-02 Puffs ity of mcg/actuati 00:00: every 4 [place] [facility] on inhaler 00 (four) Medical hours as Branch needed for Wheezing or Shortness of Breath. ondansetron Yes [id number] 4mg Take 1 [facility] (ZOFRAN 9-02 tablet by ity of ODT) 4 mg 00:00: mouth [place] disintegrat 00 every 8 Medic al ing tablet (eight) Branch hours as needed for Nausea and Vomiting (N/V). benzonatate Yes [id number] 100mg Take 1 [facility] 100 mg 9-02 capsule by ity of capsule 00:00: mouth 3 [place] 00 (three) Medical times Branch daily as needed for Cough. bromphenira Yes [id number] 5mL Take 5 mL [facility] mine-pseudo 9-02 by mouth 4 it y of ephedrine-D 00:00: (four[place] ([place]OMF[place] 00 times Medical DM) 2-30-10 daily as Bran ch mg/5 mL needed for syrup Congestion /Allergies or Cough. albuterol Yes [id number] 2{puff} Inhale 2 [facility] 90 9-02 Puffs ity of mcg/actuati 00:00: every 4 [place] [facility] on inhaler 00 (four) Medical hours as Branch needed for Wheezing or Shortness of Breath. ondansetron 2020-0 Yes [id number] 4mg Take 1 [facility] (ZOFRAN 9-02 tablet by ity of ODT) 4 mg 00:00: mouth [place] disintegrat 00 every 8 Medic al ing tablet (eight) Branch hours as needed for Nausea and Vomiting (N/V). benzonatate 2020-0 Yes [id number] 100mg Take 1 [facility] 100 mg 9-02 capsule by ity of capsule 00:00: mouth 3 [place] 00 (three) Medical times Branch daily as needed for Cough. bromphenira 2020-0 Yes [id number] 5mL Take 5 mL [facility] mine-pseudo 9-02 by mouth 4 it y of ephedrine-D 00:00: (four[place] ([facility] 00 times Medical DM) 2-30-10 daily as Bran ch mg/5 mL needed for syrup Congestion /Allergies or Cough. albuterol 2020-0 Yes [id number] 2{puff} Inhale 2 [facility] 90 9-02 Puffs ity of mcg/actuati 00:00: every 4 [place] [facility] on inhaler 00 (four) Medical hours as Branch needed for Wheezing or Shortness of Breath. ondansetron 2020-0 Yes [id number] 4mg Take 1 [facility] (ZOFRAN 9-02 tablet by ity of ODT) 4 mg 00:00: mouth [place] disintegrat 00 every 8 Medic al ing tablet (eight) Branch hours as needed for Nausea and Vomiting (N/V). benzonatate 2020-0 Yes [id number] 100mg Take 1 [facility] 100 mg 9-02 capsule by ity of capsule 00:00: mouth 3 [place] 00 (three) Medical times Branch daily as needed for Cough. bromphenira 2020-0 Yes [id number] 5mL Take 5 mL [facility] mine-pseudo 9-02 by mouth 4 it y of ephedrine-D 00:00: (four[place] ([facility] 00 times Medical DM) 2-30-10 daily as Bran ch mg/5 mL needed for syrup Congestion /Allergies or Cough. albuterol 2020-0 Yes [id number] 2{puff} Inhale 2 [facility] 90 9-02 Puffs ity of mcg/actuati 00:00: every 4 [place] [facility] inhaler 00 (four) Medical hours as Branch needed for Wheezing or Shortness of Breath. ondansetron 2020-0 Yes [id number] 4mg Take 1 [facility] (ZOFRAN 9-02 tablet by ity of ODT) 4 mg 00:00: mouth [place] disintegrat 00 every 8 Medic al ing tablet (eight) Branch hours as needed for Nausea and Vomiting (N/V). benzonatate 2020-0 Yes [id number] 100mg Take 1 [facility] 100 mg 9-02 capsule by ity of capsule 00:00: mouth 3 [place] 00 (three) Medical times Branch daily as needed for Cough. bromphenira 2020-0 Yes [id number] 5mL Take 5 mL [facility] mine-pseudo 9-02 by mouth 4 it y of ephedrine-D 00:00: (four) [place] [facility] ([facility]OMF[facility] 00 times Medical DM) 2-30-10 daily as Bran ch mg/5 mL needed for syrup Congestion /Allergies or Cough. albuterol 2020-0 Yes [id number] 2{puff} Inhale 2 [facility] 90 9-02 Puffs ity of mcg/actuati 00:00: every 4 [place] [facility] on inhaler 00 (four) Medical hours as Branch needed for Wheezing or Shortness of Breath. ondansetron 2020-0 Yes [id number] 4mg Take 1 [facility] (ZOFRAN 9-02 tablet by ity of ODT) 4 mg 00:00: mouth [place] disintegrat 00 every 8 Medic al ing tablet (eight) Branch hours as needed for Nausea and Vomiting (N/V). benzonatate 2020-0 Yes [id number] 100mg Take 1 [facility] 100 mg 9-02 capsule by ity of capsule 00:00: mouth 3 [place] 00 (three) Medical times Branch daily as needed for Cough. bromphenira 2020-0 Yes [id number] 5mL Take 5 mL [facility] mine-pseudo 9-02 by mouth 4 it y of ephedrine-D 00:00: (four) [place] [facility] ([facility]OMF[facility] 00 times Medical DM) 2-30-10 daily as Bran ch mg/5 mL needed for syrup Congestion /Allergies or Cough. albuterol 2020-0 Yes [id number] 2{puff} Inhale 2 [facility] 90 9-02 Puffs ity of mcg/actuati 00:00: every 4 [place] [facility] on inhaler 00 (four) Medical hours as Branch needed for Wheezing or Shortness of Breath. ondansetron 2020-0 Yes [id number] 4mg Take 1 [facility] (ZOFRAN 9-02 tablet by ity of ODT) 4 mg 00:00: mouth [place] disintegrat 00 every 8 Medic al ing tablet (eight) Branch hours as needed for Nausea and Vomiting (N/V). benzonatate 2020-0 Yes [id number] 100mg Take 1 [facility] 100 mg 9-02 capsule by ity of capsule 00:00: mouth 3 [place] 00 (three) Medical times Branch daily as needed for Cough. bromphenira 2020-0 Yes [id number] 5mL Take 5 mL [facility] mine-pseudo 9-02 by mouth 4 it y of ephedrine-D 00:00: (four) [place] [facility] (BROMF[facility] 00 times Medical DM) 2-30-10 daily as Bran ch mg/5 mL needed for syrup Congestion /Allergies or Cough. albuterol 2020-0 Yes [id number] 2{puff} Inhale 2 [facility] 90 9-02 Puffs ity of mcg/actuati 00:00: every 4 [place] [facility] on inhaler 00 (four) Medical hours as Branch needed for Wheezing or Shortness of Breath. ondansetron 2020-0 Yes [id number] 4mg Take 1 [facility] (ZOFRAN 9-02 tablet by ity of ODT) 4 mg 00:00: mouth [place] disintegrat 00 every 8 Medic al ing tablet (eight) Branch hours as needed for Nausea and Vomiting (N/V). benzonatate 2020-0 Yes [id number] 100mg Take 1 [facility] 100 mg 9-02 capsule by ity of capsule 00:00: mouth 3 [place] 00 (three) Medical times Branch daily as needed for Cough. bromphenira 2020-0 Yes [id number] 5mL Take 5 mL [facility] mine-pseudo 9-02 by mouth 4 it y of ephedrine-D 00:00: (four) [place] [facility] ([facility] 00 times Medical DM) 2-30-10 daily as Bran ch mg/5 mL needed for syrup Congestion /Allergies or Cough. albuterol 2020-0 Yes [id number] 2{puff} Inhale 2 [facility] 90 9-02 Puffs ity of mcg/actuati 00:00: every 4 [place] [facility] on inhaler 00 (four) Medical hours as Branch needed for Wheezing or Shortness of Breath. ondansetron 2020-0 Yes [id number] 4mg Take 1 [facility] (ZOFRAN 9-02 tablet by ity of ODT) 4 mg 00:00: mouth [place] disintegrat 00 every 8 Medic al ing tablet (eight) Branch hours as needed for Nausea and Vomiting (N/V). benzonatate 2020-0 Yes [id number] 100mg Take 1 [facility] 100 mg 9-02 capsule by ity of capsule 00:00: mouth 3 [place] 00 (three) Medical times Branch daily as needed for Cough. bromphenira 0 Yes [id number] 5mL Take 5 mL [facility] mine-pseudo 9-02 by mouth 4 it y of ephedrine-D 00:00: (four) [place] [facility] ([facility] 00 times Medical DM) 2-30-10 daily as Bran ch mg/5 mL needed for syrup Congestion /Allergies or Cough. albuterol 0 Yes [id number] 2{puff} Inhale 2 [facility] 90 9-02 Puffs ity of mcg/actuati 00:00: every 4 [place] [facility] on inhaler 00 (four) Medical hours as Branch needed for Wheezing or Shortness of Breath. ondansetron 0 Yes [id number] 4mg Take 1 [facility] (ZOFRAN 9-02 tablet by ity of ODT) 4 mg 00:00: mouth [place] disintegrat 00 every 8 Medic al ing tablet (eight) Branch hours as needed for Nausea and Vomiting (N/V). benzonatate 0 Yes [id number] 100mg Take 1 [facility] 100 mg 9-02 capsule by ity of capsule 00:00: mouth 3 [place] 00 (three) Medical times Branch daily as needed for Cough. bromphenira 0 Yes [id number] 5mL Take 5 mL [facility] mine-pseudo 9-02 by mouth 4 it y of ephedrine-D 00:00: (four) [place] [facility] ([facility] 00 times Medical DM) 2-30-10 daily as Bran ch mg/5 mL needed for syrup Congestion /Allergies or Cough. albuterol 0 Yes [id number] 2{puff} Inhale 2 [facility] 90 9-02 Puffs ity of mcg/actuati 00:00: every 4 [place] [facility] on inhaler 00 (four) Medical hours as Branch needed for Wheezing or Shortness of Breath. ondansetron 0 Yes [id number] 4mg Take 1 [facility] (ZOFRAN 9-02 tablet by ity of ODT) 4 mg 00:00: mouth [place] disintegrat 00 every 8 Medic al ing tablet (eight) Branch hours as needed for Nausea and Vomiting (N/V). benzonatate 2021-0 Yes [id number] 100mg Take 1 [facility] 100 mg 9-02 capsule by ity of capsule 00:00: mouth 3 [place] 00 (three) Medical times Branch daily as needed for Cough. bromphenira 0 Yes [id number] 5mL Take 5 mL [facility] mine-pseudo 9-02 by mouth 4 it y of ephedrine-D 00:00: (four) [place] [facility] ([facility]OM[facility] 00 times Medical DM) 2-30-10 daily as Bran ch mg/5 mL needed for syrup Congestion /Allergies or Cough. albuterol Yes [id number] 2{puff} Inhale 2 [facility] 90 9-02 Puffs ity of mcg/actuati 00:00: every 4 [place] [facility] on inhaler 00 (four) Medical hours as Branch needed for Wheezing or Shortness of Breath. ondansetron Yes [id number] 4mg Take 1 [facility] (ZOFRAN 9-02 tablet by ity of ODT) 4 mg 00:00: mouth [place] disintegrat 00 every 8 Medic al ing tablet (eight) Branch hours as needed for Nausea and Vomiting (N/V). benzonatate 0 Yes [id number] 100mg Take 1 [facility] 100 mg 9-02 capsule by ity of capsule 00:00: mouth 3 [place] 00 (three) Medical times Branch daily as needed for Cough. bromphenira 0 Yes [id number] 5mL Take 5 mL [facility] mine-pseudo 9-02 by mouth 4 it y of ephedrine-D 00:00: (four) [place] [facility] ([facility]OM[facility] 00 times Medical DM) 2-30-10 daily as Bran ch mg/5 mL needed for syrup Congestion /Allergies or Cough. albuterol 0 Yes [id number] 2{puff} Inhale 2 [facility] 90 9-02 Puffs ity of mcg/actuati 00:00: every 4 [place] [facility] on inhaler 00 (four) Medical hours as Branch needed for Wheezing or Shortness of Breath. ondansetron 0 Yes [id number] 4mg Take 1 [facility] (ZOFRAN 9-02 tablet by ity of ODT) 4 mg 00:00: mouth [place] disintegrat 00 every 8 Medic al ing tablet (eight) Branch hours as needed for Nausea and Vomiting (N/V). benzonatate 0 Yes [id number] 100mg Take 1 [facility] 100 mg 9-02 capsule by ity of capsule 00:00: mouth 3 [place] 00 (three) Medical times Branch daily as needed for Cough. bromphenira 0 Yes [id number] 5mL Take 5 mL [facility] mine-pseudo 9-02 by mouth 4 it y of ephedrine-D 00:00: (four) [place] [facility] (BROMFED 00 times Medical DM) 2-30-10 daily as Bran ch mg/5 mL needed for syrup Congestion /Allergies or Cough. albuterol 0 Yes [id number] 2{puff} Inhale 2 [facility] 90 9-02 Puffs ity of mcg/actuati 00:00: every 4 [place] [facility] on inhaler 00 (four) Medical hours as Branch needed for Wheezing or Shortness of Breath. ondansetron 0 Yes [id number] 4mg Take 1 [facility] (ZOFRAN 9-02 tablet by ity of ODT) 4 mg 00:00: mouth [place] disintegrat 00 every 8 Medic al ing tablet (eight) Branch hours as needed for Nausea and Vomiting (N/V). benzonatate 0 Yes [id number] 100mg Take 1 [facility] 100 mg 9-02 capsule by ity of capsule 00:00: mouth 3 [place] 00 (three) Medical times Branch daily as needed for Cough. bromphenira 0 Yes [id number] 5mL Take 5 mL [facility] mine-pseudo 9-02 by mouth 4 it y of ephedrine-D 00:00: (four) [place] [facility] ([facility] 00 times Medical DM) 2-30-10 daily as Bran ch mg/5 mL needed for syrup Congestion /Allergies or Cough. albuterol 0 Yes [id number] 2{puff} Inhale 2 [facility] 90 9-02 Puffs ity of mcg/actuati 00:00: every 4 [place] [facility] on inhaler 00 (four) Medical hours as Branch needed for Wheezing or Shortness of Breath. ondansetron 0 Yes [id number] 4mg Take 1 [facility] (ZOFRAN 9-02 tablet by ity of ODT) 4 mg 00:00: mouth [place] disintegrat 00 every 8 Medic al ing tablet (eight) Branch hours as needed for Nausea and Vomiting (N/V). benzonatate 0 Yes [id number] 100mg Take 1 [facility] 100 mg - capsule by ity of capsule 00:00: mouth 3 [place] 00 (three) Medical times Branch daily as needed for Cough. bromphenira 0 Yes [id number] 5mL Take 5 mL [facility] mine-pseudo 04-09 by mouth 4 it y of ephedrine-D 00:00: (four) [place] [facility] ([facility]OM[facility] 00 times Medical DM) 2-30-10 daily as Bran ch mg/5 mL needed for syrup Congestion /Allergies or Cough. albuterol Yes [id number] 2{puff} Inhale 2 [facility] 90 04-09 Puffs ity of mcg/actuati 00:00: every 4 [place] [facility] on inhaler 00 (four) Medical hours as Branch needed for Wheezing or Shortness of Breath. ondansetron Yes [id number] 4mg Take 1 [facility] (ZOFRAN - tablet by ity of ODT) 4 mg 00:00: mouth [place] disintegrat 00 every 8 Medic al ing tablet (eight) Branch hours as needed for Nausea and Vomiting (N/V). Zoloft 100 2020-0 No 15mg mg tablet 8 00:00: 00 Dose 2020-0 No Unknown 8 00:00: 00 Zoloft 100 2020-0 No 15mg mg tablet 8 00:00: 00 Dose 2020-0 No Unknown 8- 00:00: 00 Zoloft 100 2020-0 No 15mg mg tablet 6 00:00: 00 Dose 2020-0 No Unknown 6-23 00:00: 00 Zoloft 100 2020-0 No 15mg mg tablet 6 00:00: 00 Dose 2020-0 No Unknown 6-23 00:00: 00 Dose 2020-0 No Unknown 5-04 00:00: 00 Dose 2020-0 No Unknown 5-04 00:00: 00 lisinopriL 2020-0 Yes 10mg Take 1 Un[facility] rs 10 mg 3-18 tablet by ity of tablet 00:00: mouth. [place] 00 [facility] lisinopriL 2020-0 Yes 10mg Take 1 Unive rs 10 mg 3-18 tablet by ity of tablet 00:00: mouth. [place] [facility] lisinopriL 2021-0 Yes 10mg Take 10 mg U nivers 10 mg 3-18 by mouth. ity of tablet 00:00: [place] [facility] lisinopriL 2021-0 Yes 10mg Take 10 mg U nivers 10 mg 3-18 by mouth. ity of tablet 00:00: [place] [facility] lisinopriL 2021-0 Yes 10mg Take 10 mg U nivers 10 mg 3-18 by mouth. ity of tablet 00:00: [place] [facility] lisinopriL 2021-0 Yes 10mg Take 10 mg U nivers 10 mg 3-18 by mouth. ity of tablet 00:00: [place] [facility] lisinopriL 2021-0 Yes 10mg Take 10 mg U nivers 10 mg 3-18 by mouth. ity of tablet 00:00: [place] [facility] lisinopriL 2021-0 Yes 10mg Take 10 mg U nivers 10 mg 3-18 by mouth. ity of tablet 00:00: [place] [facility] lisinopriL 2021-0 Yes 10mg Take 10 mg U nivers 10 mg 3-18 by mouth. ity of tablet 00:00: [place] [facility] lisinopriL 2021-0 Yes 10mg Take 10 mg U nivers 10 mg 3-18 by mouth. ity of tablet 00:00: [place] [facility] lisinopriL 2021-0 Yes 10mg Take 10 mg U nivers 10 mg 3-18 by mouth. ity of tablet 00:00: [place] [facility] lisinopriL 2021-0 Yes 10mg Take 10 mg U nivers 10 mg 3-18 by mouth. ity of tablet 00:00: [place] [facility] lisinopriL 2021-0 Yes 10mg Take 10 mg U nivers 10 mg 3-18 by mouth. ity of tablet 00:00: [place] [facility] lisinopriL 2021-0 Yes 10mg Take 10 mg U nivers 10 mg 3-18 by mouth. ity of tablet 00:00: [place] [facility] lisinopriL 2021-0 Yes 10mg Take 10 mg U nivers 10 mg 3-18 by mouth. ity of tablet 00:00: [place] [facility] lisinopriL 2021-0 Yes 10mg Take 10 mg U nivers 10 mg 3-18 by mouth. ity of tablet 00:00: [place] [facility] lisinopriL 2021-0 Yes 10mg Take 10 mg U nivers 10 mg 3-18 by mouth. ity of tablet 00:00: [place] [facility] lisinopriL 2021-0 Yes 10mg Take 10 mg U nivers 10 mg 3-18 by mouth. ity of tablet 00:00: [place] [facility] lisinopriL 2021-0 Yes 10mg Take 10 mg U nivers 10 mg 3-18 by mouth. ity of tablet 00:00: [place] [facility] lisinopriL 2021-0 Yes 10mg Take 10 mg U nivers 10 mg 3-18 by mouth. ity of tablet 00:00: [place] [facility] lisinopriL 2021-0 Yes 10mg Take 10 mg U nivers 10 mg 3-18 by mouth. ity of tablet 00:00: [place] [facility] lisinopriL 2021-0 Yes 10mg Take 10 mg U nivers 10 mg 3-18 by mouth. ity of tablet 00:00: [place] [facility] lisinopriL 2021-0 Yes 10mg Take 10 mg U nivers 10 mg 3-18 by mouth. ity of tablet 00:00: [place] [facility] lisinopriL 2021-0 Yes 10mg Take 10 mg U nivers 10 mg 3-18 by mouth. ity of tablet 00:00: [place] [facility] lisinopriL 2021-0 Yes 10mg Take 10 mg U nivers 10 mg 3-18 by mouth. ity of tablet 00:00: [place] [facility] lisinopriL 2021-0 Yes 10mg Take 10 mg U nivers 10 mg 3-18 by mouth. ity of tablet 00:00: [place] [facility] lisinopriL 2021-0 Yes 10mg Take 10 mg U nivers 10 mg 3-18 by mouth. ity of tablet 00:00: [place] [facility] lisinopriL 2021-0 Yes 10mg Take 10 mg U nivers 10 mg 3-18 by mouth. ity of tablet 00:00: [place] [facility] lisinopriL 2021-0 Yes 10mg Take 10 mg U nivers 10 mg 3-18 by mouth. ity of tablet 00:00: [place] [facility] lisinopriL 2021-0 Yes 10mg Take 10 mg U nivers 10 mg 3-18 by mouth. ity of tablet 00:00: [facility] Branch lisinopriL 2021-0 Yes 10mg Take 10 mg U nivers 10 mg 3-18 by mouth. ity of tablet 00:00: [facility] Branch lisinopriL 2021-0 Yes 10mg Take 10 mg U nivers 10 mg 3-18 by mouth. ity of tablet 00:00: [place] [facility] lisinopriL 2021-0 Yes 10mg Take 10 mg U nivers 10 mg 3-18 by mouth. ity of tablet 00:00: [place] [facility] lisinopriL 2021-0 Yes 10mg Take 10 mg U nivers 10 mg 3-18 by mouth. ity of tablet 00:00: [place] [facility] lisinopriL 2021-0 Yes 10mg Take 10 mg U nivers 10 mg 3-18 by mouth. ity of tablet 00:00: [place] [facility] lisinopriL 2021-0 Yes 10mg Take 10 mg U nivers 10 mg 3-18 by mouth. ity of tablet 00:00: [place] [facility] lisinopriL 2021-0 Yes 10mg Take 10 mg U nivers 10 mg 3-18 by mouth. ity of tablet 00:00: [place] [facility] lisinopriL 2021-0 Yes 10mg Take 10 mg U nivers 10 mg 3-18 by mouth. ity of tablet 00:00: [place] [facility] lisinopriL 2021-0 Yes 10mg Take 10 mg U nivers 10 mg 3-18 by mouth. ity of tablet 00:00: [place] [facility] lisinopriL 2021-0 Yes 10mg Take 10 mg U nivers 10 mg 3-18 by mouth. ity of tablet 00:00: [place] [facility] lisinopriL 2021-0 Yes 10mg Take 10 mg U nivers 10 mg 3-18 by mouth. ity of tablet 00:00: [place] [facility] lisinopriL 2021-0 Yes 10mg Take 10 mg U nivers 10 mg 3-18 by mouth. ity of tablet 00:00: [place] [facility] lisinopriL 2021-0 Yes 10mg Take 10 mg U nivers 10 mg 3-18 by mouth. ity of tablet 00:00: [place] [facility] lisinopriL 2021-0 Yes 10mg Take 10 mg U nivers 10 mg 3-18 by mouth. ity of tablet 00:00: [place] [facility] lisinopriL 2021-0 Yes 10mg Take 10 mg U nivers 10 mg 3-18 by mouth. ity of tablet 00:00: [place] [facility] lisinopriL 2021-0 Yes 10mg Take 10 mg U nivers 10 mg 3-18 by mouth. ity of tablet 00:00: [place] [facility] lisinopriL 2021-0 Yes 10mg Take 10 mg U nivers 10 mg 3-18 by mouth. ity of tablet 00:00: [place] [facility] lisinopriL 2021-0 Yes 10mg Take 10 mg U nivers 10 mg 3-18 by mouth. ity of tablet 00:00: [place] [facility] lisinopriL 2021-0 Yes 10mg Take 10 mg U nivers 10 mg 3-18 by mouth. ity of tablet 00:00: [place] [facility] lisinopriL 2021-0 Yes 10mg Take 10 mg U nivers 10 mg 3-18 by mouth. ity of tablet 00:00: [place] [facility] lisinopriL 2021-0 Yes 10mg Take 10 mg U nivers 10 mg 3-18 by mouth. ity of tablet 00:00: [place] [facility] lisinopriL 2021-0 Yes 10mg Take 10 mg U nivers 10 mg 3-18 by mouth. ity of tablet 00:00: [place] [facility] lisinopriL 2021-0 Yes 10mg Take 10 mg U nivers 10 mg 3-18 by mouth. ity of tablet 00:00: [place] [facility] lisinopriL 2021-0 Yes 10mg Take 10 mg U nivers 10 mg 3-18 by mouth. ity of tablet 00:00: [place] [facility] lisinopriL 2021-0 Yes 10mg Take 10 mg U nivers 10 mg 3-18 by mouth. ity of tablet 00:00: [place] [facility] lisinopriL 2021-0 Yes 10mg Take 10 mg U nivers 10 mg 3-18 by mouth. ity of tablet 00:00: [place] [facility] lisinopriL 2020-0 Yes 10mg Take 10 mg U nivers 10 mg 3-18 by mouth. ity of tablet 00:00: [facility] [place] [facility] lisinopriL 2020-0 Yes 10mg Take 10 mg U nivers 10 mg 3-18 by mouth. ity of tablet 00:00: [facility] [place] [facility] lisinopriL 2020-0 Yes 10mg Take 10 mg U nivers 10 mg 3-18 by mouth. ity of tablet 00:00: [facility] [place] [facility] lisinopriL 2020-0 Yes 10mg Take 10 mg U nivers 10 mg 3-18 by mouth. ity of tablet 00:00: [address] lisinopriL 2020-0 3- No 10mg Take 1 Univ ers 10 mg 3-18 06-21 tablet by ity of tablet 00:00: 00:00 mouth. [place] 00 :00 [facility] Dose 0 No Unknown 1-21 00:00: 00 Dose 2020-0 [...] 2020-0 No Unknown 9- 00:00: 00 Zoloft 2020-0 No 15mg mg tablet 7-14 00:00: 00 hydroxyzine 2020-0 No 51mg HCl 50 mg 7-14 tablet 00:00: 00 Zoloft 2019-0 No 15mg mg tablet 7-14 00:00: [...] 15mg mg tablet 3-10 00:00: 00 hydroxyzine 2019-0 No 51mg HCl 50 mg 3-10 tablet [...] 1mg mg tablet 1-10 00:00: 00 Zoloft 2019-0 No 1mg mg [...] 100 mg 9-19 tablet 00:00: 00 sertraline 2016-0 No 15mg 100 mg 9-19 tablet 00:00: [...] Immunizations Ordered Filled Immunization Date Status Comments [facility] Immunization Name Name SARS-COV-2 COVID-19 2020-12-06 Completed Unive rsity of VACCINE - (MODERNA) 00:00:00 [facility] SARS-COV-2 COVID-19 2020-12-06 Completed Unive rsity of VACCINE - (MODERNA) 00:00:00 [facility] SARS-COV-2 COVID-19 2020-12-06 Completed Unive rsity of VACCINE - (MODERNA) 00:00:00 [facility] SARS-COV-2 COVID-19 2020-12-06 Completed Unive rsity of VACCINE - (MODERNA) 00:00:00 [facility] SARS-COV-2 COVID-19 2020-12-06 Completed Unive rsity of VACCINE - (MODERNA) 00:00:00 [facility] SARS-COV-2 COVID-19 2020-12-06 Completed Unive rsity of VACCINE - (MODERNA) 00:00:00 [facility] SARS-COV-2 COVID-19 2020-12-06 Completed Unive rsity of VACCINE - (MODERNA) 00:00:00 [facility] SARS-COV-2 COVID-19 2020-12-06 Completed Unive rsity of VACCINE - (MODERNA) 00:00:00 [facility] SARS-COV-2 COVID-19 2020-12-06 Completed Unive rsity of VACCINE - (MODERNA) 00:00:00 [facility] SARS-COV-2 COVID-19 2020-12-06 Completed Unive rsity of VACCINE - (MODERNA) 00:00:00 [facility] SARS-COV-2 COVID-19 2020-12-06 Completed Unive rsity of VACCINE - (MODERNA) 00:00:00 [facility] SARS-COV-2 COVID-19 2020-12-06 Completed Unive rsity of VACCINE - (MODERNA) 00:00:00 [facility] SARS-COV-2 COVID-19 2020-12-06 Completed Unive rsity of VACCINE - (MODERNA) 00:00:00 [facility] SARS-COV-2 COVID-19 2020-12-06 Completed Unive rsity of VACCINE - (MODERNA) 00:00:00 [facility] SARS-COV-2 COVID-19 2020-12-06 Completed Unive rsity of VACCINE - (MODERNA) 00:00:00 [facility] SARS-COV-2 COVID-19 2020-12-06 Completed Unive rsity of VACCINE - (MODERNA) 00:00:00 [facility] SARS-COV-2 COVID-19 2020-12-06 Completed Unive rsity of VACCINE - (MODERNA) 00:00:00 [facility] SARS-COV-2 COVID-19 2020-12-06 Completed Unive rsity of VACCINE - (MODERNA) 00:00:00 [facility] SARS-COV-2 COVID-19 2020-12-06 Completed Unive rsity of VACCINE - (MODERNA) 00:00:00 [facility] SARS-COV-2 COVID-19 2020-12-06 Completed Unive rsity of VACCINE - (MODERNA) 00:00:00 [facility] SARS-COV-2 COVID-19 2020-12-06 Completed Unive rsity of VACCINE - (MODERNA) 00:00:00 [facility] SARS-COV-2 COVID-19 2020-12-06 Completed Unive rsity of VACCINE - (MODERNA) 00:00:00 [facility] SARS-COV-2 COVID-19 2020-12-06 Completed Unive rsity of VACCINE - (MODERNA) 00:00:00 [facility] SARS-COV-2 COVID-19 2020-12-06 Completed Unive rsity of VACCINE - (MODERNA) 00:00:00 [facility] SARS-COV-2 COVID-19 2020-12-06 Completed Unive rsity of VACCINE - (MODERNA) 00:00:00 [facility] SARS-COV-2 COVID-19 2020-12-06 Completed Unive rsity of VACCINE - (MODERNA) 00:00:00 [facility] SARS-COV-2 COVID-19 2020-12-06 Completed Unive rsity of VACCINE - (MODERNA) 00:00:00 [facility] SARS-COV-2 COVID-19 2020-12-06 Completed Unive rsity of VACCINE - (MODERNA) 00:00:00 [facility] SARS-COV-2 COVID-19 2020-12-06 Completed Unive rsity of VACCINE - (MODERNA) 00:00:00 [facility] SARS-COV-2 COVID-19 2020-12-06 Completed Unive rsity of VACCINE - (MODERNA) 00:00:00 [facility] SARS-COV-2 COVID-19 2020-12-06 Completed Unive rsity of VACCINE - (MODERNA) 00:00:00 [facility] SARS-COV-2 COVID-19 2020-12-06 Completed Unive rsity of VACCINE - (MODERNA) 00:00:00 [facility] SARS-COV-2 COVID-19 2020-12-06 Completed Unive rsity of VACCINE - (MODERNA) 00:00:00 [facility] SARS-COV-2 COVID-19 2020-12-06 Completed Unive rsity of VACCINE - (MODERNA) 00:00:00 [facility] Influenza, 2018-07-25 Completed seasonal, inj 00:00:00 Influenza, 2018-07-25 Completed seasonal, inj 00:00:00 Tdap 2017-04-26 Completed 00:00:00 Influenza, 2017-04-26 Completed seasonal, inj 00:00:00 Tdap 2017-04-26 Completed 00:00:00 Influenza, 2017-04-26 Completed seasonal, inj 00:00:00 Vital Signs Vital Name Observation Time Observation Value Comments Source Systolic blood 2023-01-26 12:00:00 109 mm[Hg] Univer sity of pressure [facility] Diastolic blood 2023-01-26 12:00:00 65 mm[Hg] Unive [...] 2023-01-20 11:53:00 73.029 kg [facility] [place] [facility] BMI 2023-01-20 11:53:00 31.44 kg/m2 [facility] [place] [facility] Systolic blood 2023-01-17 10:19:00 126 mm[Hg] Univer sity of pressure [facility] Diastolic blood 2023-01-17 10:19:00 79 mm[Hg] Unive rsity of pressure [facility] Heart rate 2023-01-17 10:19:00 81 /min [facility] Body temperature 2023-01-17 10:19:00 37 Rivka Univ ers[facility] Respiratory rate 2023-01-17 10:19:00 16 /min Univ [facility] Body height 2023-01-17 10:19:00 152.4 cm [facility] Body weight 2023-01-17 10:19:00 73.2 kg [facility] BMI 2023-01-17 10:19:00 31.52 kg/m2 [facility] Oxygen saturation in 2023-01-17 10:19:00 93 /min University of Arterial blood by [facility] Pulse oximetry Branch Systolic blood 2022-10-21 13:21:00 109 mm[Hg] Univer sity of pressure [facility] Diastolic blood 2022-10-21 13:21:00 77 mm[Hg] Unive rsity of [facility] Heart rate 2022-10-21 13:21:00 84 /min [facility] Body temperature 2022-10-21 13:21:00 36.11 Rivka [facility] Body height 2022-10-21 13:21:00 152.4 cm [facility] Body weight 2022-10-21 13:21:00 78.971 kg Universi ty [facility] BMI 2022-10-21 13:21:00 34.00 kg/m2 Universi ty [facility] Branch Systolic blood 2022-07-22 22:32:00 120 mm[Hg] Univer sity of pressure [facility] Diastolic blood 2022-07-22 22:32:00 86 mm[Hg] Unive rsity of pressure [facility] Heart rate 2022-07-22 22:32:00 125 /min Universi ty [facility] Body temperature 2022-07-22 22:32:00 36.17 Rivka [facility] Body height 2022-07-22 22:32:00 152.4 cm Universi ty [facility] Body weight 2022-07-22 22:32:00 78.926 kg Universi ty [facility] Branch BMI 2022-07-22 22:32:00 33.98 kg/m2 Universi ty [facility] BP Systolic 2022-03-01 14:51:00 107 mm[Hg] BP [...] LUMBAR SPINE WO 2023-01-23 16:22:14 Coleman Wolfe [facility] CONTRAST Medical Branch CT THORACIC SPINE WO 2023-01-23 16:22:14 Coleman Wolfe [facility] CONTRAST [facility] Branch BASIC METABOLIC PANEL 2023-01-23 11:36:00 Coleman Wolfe [facility] (NA, K, CL, CO2, Medical Branch GLUCOSE, BUN, CREATININE, CA) CBC WITHOUT DIFF 2023-01-23 11:36:00 Coleman Wolfe [facility] XR SCOLIOSIS SURVEY 2 VW 2023-01-23 02:10:00 Felipe Herzog [facility] DUPLEX VENOUS LEG RIGHT 2023-01-21 13:32:00 [place] [facility] - BY VASCULAR LAB [facility] Branch CBC WITHOUT DIFF 2023-01-20 21:24:00 Russel Albright [facility] D-DIMER 2023-01-20 21:24:00 [place] [facility] PHOSPHORUS 2023-01-19 11:44:00 Yamil [facility] MAGNESIUM 2023-01-19 11:44:00 Yamil [facility] BASIC METABOLIC PANEL 2023-01-19 11:44:00 Yamil [facility] (NA, K, CL, CO2, Medical Branch GLUCOSE, BUN, CREATININE, CA) CBC WITH DIFF 2023-01-19 11:44:00 Yamil [facility] PHOSPHORUS 2023-01-18 10:36:00 [facility] MAGNESIUM 2023-01-18 10:36:00 [facility] BASIC METABOLIC PANEL 2023-01-18 10:36:00 Jamie Quinton [facility] (NA, K, CL, CO2, Medical Branch GLUCOSE, BUN, CREATININE, CA) CBC WITH DIFF 2023-01-18 10:36:00 Quinton [facility] PHOSPHORUS 2023-01-18 10:36:00 [facility] MAGNESIUM 2023-01-18 10:36:00 [facility] BASIC METABOLIC PANEL 2023-01-18 10:36:00 Jamie [facility] (NA, K, CL, CO2, Medical Branch GLUCOSE, BUN, CREATININE, CA) CBC WITH DIFF 2023-01-18 10:36:00 Jamie [facility] XR CHEST 1 2023-01-18 03:45:00 Vu, [facility] XR CHEST 1 2023-01-18 03:45:00 Vu, [facility] XR KUB 2023-01-18 03:45:00 Vu, [facility] BASIC METABOLIC PANEL 2023-01-18 03:23:00 , [facility] (NA, K, CL, CO2, Medical Branch GLUCOSE, BUN, CREATININE, CA) CBC WITHOUT DIFF 2023-01-18 03:23:00 Vu, [facility] BASIC METABOLIC PANEL 2023-01-18 03:23:00 Vu, [facility] (NA, K, CL, CO2, Medical Branch GLUCOSE, BUN, CREATININE, CA) CBC WITHOUT DIFF 2023-01-18 03:23:00 , [facility] PREPARE PACKED RBC 2023-01-18 02:43:04 Maritza [facility] PREPARE PACKED RBC 2023-01-18 02:43:04 Maritza [facility] TRANSFUSE PACKED RBC 2023-01-18 01:11:00 Jeffy Delcid [facility] TRANSFUSE PACKED RBC 2023-01-18 01:11:00 Jeffy Delcid [facility] ABG+COOX+NA+K+GLU+CA2+ 2023-01-18 01:00:00 Felipe Herzog Un [facility] ABG+COOX+NA+K+GLU+CA2+ 2023-01-18 01:00:00 [facility] LUMBAR SPINE 1 2023-01-18 00:53:00 Fel[facility] SPINE THORACIC 2 VW 2023-01-18 00:53:00 [facility] FL TIME OR 2023-01-18 00:50:39 Mino [facility] (NON-REPORTABLE) Medical Branch FL TIME OR 2023-01-18 00:50:39 Mino [facility] (NON-REPORTABLE) [facility] Branch ABG+COOX+NA+K+GLU+CA2+ 2023-01-18 00:04:00 Felipe Herzog [facility] ABG+COOX+NA+K+GLU+CA2+ 2023-01-18 00:04:00 Felipe Herzog [facility] FL TIME OR 2023-01-17 23:14:37 Mino [facility] (NON-REPORTABLE) Medical Branch FL TIME OR 2023-01-17 23:14:37 Mino [facility] (NON-REPORTABLE) [facility] TRANSFUSE PACKED RBC 2023-01-17 23:07:00 Jeffy Delcid [facility] TRANSFUSE PACKED RBC 2023-01-17 23:07:00 Jeffy Delcid [facility] ABG+COOX+NA+K+GLU+CA2+ 2023-01-17 22:58:00 Felipe [facility] ABG+COOX+NA+K+GLU+CA2+ 2023-01-17 22:58:00 [facility] RBC 2023-01-17 22:41:13 Mansi Salas [facility] PREPARE PACKED RBC 2023-01-17 22:41:13 Mansi Salas [facility] ABG+COOX+NA+K+GLU+CA2+ 2023-01-17 21:33:00 Fel[facility] ABG+COOX+NA+K+GLU+CA2+ 2023-01-17 21:33:00 Felipe Herzog [facility] CBC WITHOUT DIFF 2023-01-17 21:25:00 Felipe Herzog [facility] ty of [facility] CBC WITHOUT DIFF 2023-01-17 21:25:00 Felipe Herzog [facility] ty [facility] ABG+COOX+NA+K+GLU+CA2+ 2023-01-17 21:09:00 Felipe Herzog [facility] ABG+COOX+NA+K+GLU+CA2+ 2023-01-17 21:09:00 Felipe Herzog [facility] ABG+COOX+NA+K+GLU+CA2+ 2023-01-17 20:30:00 Felipe Herzog [facility] ABG+COOX+NA+K+GLU+CA2+ 2023-01-17 20:30:00 Felipe Herzog [facility] ABG+COOX+NA+K+GLU+CA2+ 2023-01-17 18:47:00 Felipe Herzog [facility] ABG+COOX+NA+K+GLU+CA2+ 2023-01-17 18:47:00 Felipe Herzog [facility] ABG+COOX+NA+K+GLU+CA2+ 2023-01-17 16:48:00 Felipe Herzog [facility] ABG+COOX+NA+K+GLU+CA2+ 2023-01-17 16:48:00 Felipe Herzog [facility] ABG+COOX+NA+K+GLU+CA2+ 2023-01-17 15:27:00 Felipe Herzog [facility] ABG+COOX+NA+K+GLU+CA2+ 2023-01-17 15:27:00 Felipe Herzog [facility] LUMBAR DECOMPRESSION 2023-01-17 12:03:00 Felipe Herzog [facility] WITH Medical Branch FUSION/INSTRUMENTATION LUMBAR DECOMPRESSION 2023-01-17 12:03:00 Mino [facility] WITH Medical Branch FUSION/INSTRUMENTATION HB ABO GROUPING 2023-01-17 10:45:00 Apple Desai [facility] Medical Branch HB ABO GROUPING 2023-01-17 10:45:00 Apple Desai [facility] Medical Branch ASSIGNMENT OF BENEFITS 2023-01-17 10:12:57 Doctor Unassigned, No [facility] Name Medical Branch AUTHORIZATION FOR 2022-11-10 05:01:00 Doctor Unassigned, No [facility] RELEASE OF [facility] Name Medical Branch XR CHEST 2 2022-10-28 21:18:07 Roberto Singh [facility] Medical Branch XR SCOLIOSIS SURVEY 2 2022-10-21 14:07:44 Mino [facility] Medical Branch EXTERNAL PROVIDER 2022-10-19 05:01:00 Doctor Unassigned, No [facility] Name Medical Branch REFERRAL- 2022-09-08 06:01:00 Doctor Unassigned, No [facility] REQUEST/RESPONSE Name Medical Branch REFERRAL- 2022-04-22 05:01:00 Doctor Unassigned, No [facility] REQUEST/RESPONSE Name Medical Branch ASSIGNMENT OF BENEFITS 2022-03-23 19:23:08 Doctor Unassigned, No [facility] Medical Branch CONSENT/REFUSAL FOR 2022-03-23 19:22:45 Doctor Unassigned, No [facility] DIAGNOSIS AND TREATMENT Name Medical Branch EXTERNAL PROVIDER 2022-03-11 05:01:00 Doctor Unassigned, No [facility] RECORDS Name Medical Branch MR THORACIC SPINE WO 2022-03-10 22:08:00 [place] [facility] CONTRAST Medical Branch MR LUMBAR SPINE WO 2022-03-10 22:03:42 [place] [facility] CONTRAST Medical Branch MR CERVICAL SPINE WO 2022-03-10 21:26:19 [place] [facility] CONTRAST Medical Branch DEXA AXIAL (HIP AND 2022-03-10 20:09:14 [place] [facility] SPINE) Medical Branch DISCLOSURE AND CONSENT, 2022-02-26 05:01:00 Doctor Unassigned, N o [facility] MEDICAL AND SURGICAL Name Medical Bra [facility] PROCEDURES Plan of Care Planned Activity Planned Date Details Comments Source Medication 2023-01-27 oxyCODONE CR [facility] 01:00:00 (oxyCONTIN CR) 12 hr Medical Branch tablet 10 mg [code = 5313213] Goal Plan of Care Note [code = 46439-1] Goal Plan of Care Note [code = 60351-5] Goal Plan of Care Note [code = 09474-7] Goal Plan of Care Note [code = 33036-0] Goal Plan of Care Note [code = 39995-4] Goal Plan of Care Note [code = 34505-7] Goal Plan of Care Note [code = 55556-3] Goal Plan of Care Note [code = 84678-2] Goal Plan of Care Note [code = 78557-0] Goal Plan of Care Note [code = 36361-1] Goal Plan of Care Note [code = 38017-0] Goal Plan of Care Note [code = 15663-5] Goal Plan of Care Note [code = 01527-6] Goal Plan of Care Note [code = 78042-2] Goal Plan of Care Note [code = 89710-5] Goal Plan of Care Note [code = 80834-1] Goal Plan of Care Note [code = 33048-9] Goal Plan of Care Note [code = 60211-2] Goal Plan of Care Note [code = 70952-8] Goal Plan of Care Note [code = 32423-8] Goal Plan of Care Note [code = 37780-8] Goal Plan of Care Note [code = 82262-5] Goal Plan of Care Note [code = 62724-8] Goal Plan of Care Note [code = 12776-7] Goal Plan of Care Note [code = 83843-1] Goal Plan of Care Note [code = 63908-2] Goal Plan of Care Note [code = 98819-1] Goal Plan of Care Note [code = 24232-9] Goal Plan of Care Note [code = 79187-9] Goal Plan of Care Note [code = 01052-4] Goal Plan of Care Note [code = 88732-3] Goal Plan of Care Note [code = 33074-2] Goal Plan of Care Note [code = 93421-2] Goal Plan of Care Note [code = 23148-1] Goal Plan of Care Note [code = 09214-1] Goal Plan of Care Note [code = 85617-1] Goal Plan of Care Note [code = 29125-6] Goal Plan of Care Note [code = 08979-4] Goal Plan of Care Note [code = 23730-9] Goal Plan of Care Note [code = 06416-9] Goal Plan of Care Note [code = 26204-2] Goal Plan of Care Note [code = 65855-9] Goal Plan of Care Note [code = 97660-5] Goal Plan of Care Note [code = 87262-4] Goal Plan of Care Note [code = 94884-0] Goal Plan of Care Note [code = 64087-4] Goal Plan of Care Note [code = 51199-3] Goal Plan of Care Note [code = 81961-7] Goal Plan of Care Note [code = 68333-8] Goal Plan of Care Note [code = 95368-1] Goal Plan of Care Note [code = 35226-2] Goal Plan of Care Note [code = 35919-0] Goal Plan of Care Note [code = 13497-8] Goal Plan of Care Note [code = 33638-0] Goal Plan of Care Note [code = 39482-5] Encounters Start End Encounter Admission Attending Care Care Encounter Source Date/Time Date/Time Type Type Clinicians Facility Department ID 2023-02-23 2023-02-[address] [facility] [id number] Memoria 15:00:00 15:00:00 00 dennise Dela Cruz 2023-02-23 2023-02-[address] [facility] [id number] Memoria 15:00:00 15:00:00 00 dennise Dela Cruz 2023-01-17 2023-01-26 Inpatient Laurie LEBLANCARTHUR [facility] SOR [id number] Univers 05:13:00 14:00:00 , FELIPE murcia [facility] 2023-01-17 2023-01-26 [facility] Mino EDWARDNIE 1.2.840.114 1 [id number] Univers 05:13:00 14:00:00 Encounter , Felipe VICKY 350.1.13.10 ity of HOSPITAL 4.2.7.2.686 Neal as [id number] [facility] 098 Branch 2023-01-17 2023-01-17 Surgery Mino DUENAS 1.2.840.114 10 [id number] Univers 07:00:00 15:50:00 , Felipe VICKY 350.1.13.10 it y of HOSPITAL 4.2.7.2.686 Neal as [id number] [facility] 103 Branch 2023-01-17 2023-01-17 Orders Doctor NICOLE 1.2.840.114 [id number] Univers 00:00:00 00:00:00 Only Unassigned, VICKY 350.1.13.10 ity of [place] [facility] 4.2.7.2.686 Neal as [id number] [facility] 009 Branch 2023-01-03 2023-01-03 Prep For Mino RIVERA 1.2.840.114 1 [id number] Univers 00:00:00 00:00:00 Surgery , Felipe VICKY 350.1.13.10 it y of HOSPITAL 4.2.7.2.686 Neal as [phone] [facility] 015 Branch 2022-12-06 2022-12-06 Telephone Mino [facility] 1.2.840.114 [id number] Univers 00:00:00 00:00:00 , Felipe SPECIALTY 350.1.13.10 [place] [id number] Dc judith BEAULIEU [address] [place] [address] 2022-11-10 2022-11-10 Telephone Mino [facility] 1.2.840.114 [id number] Univers 00:00:00 00:00:00 , Felipe SPECIALTY 350.1.13.10 [place] [id number] Dc ackarissa BRADNeva [address] [facility] 2022-11-10 2022-11-10 Orders Doctor RIVERA 1.2.840.114 [id number] Univers 00:00:00 00:00:00 Only Unassigned, VICKY 350.1.13.10 ity of [place] [facility] 4.2.7.2.686 Neal as [id number] [facility] 009 Odon 2022-11-04 2022-11-04 Telephone [facility] 1.2.840.114 [id number] Univers 00:00:00 00:00:00 , Felipe SPECIALTY 350.1.13.10 [place] [id number] Dc judith SALINASY 198 [facility] 2022-11-02 2022-11-02 Telephone [facility] 1.2.840.114 [id number] Univers 00:00:00 00:00:00 , Felipe SPECIALTY 350.1.13.10 ity of [facility] [place]2.[place] [id number] Dc judith BEAULIEU 198 [facility] 2022-10-28 2022-10-28 Outpatient [facility] [id number] Univers 15:56:01 23:59:00 , FELIPE ity of [facility] 2022-10-28 2022-10-28 [facility] 1.2.840.114 1 [id number] Univers 15:56:01 23:59:00 Encounter Felipe 350.1.13.10 ity of [place] [id number] [facility] 807 Odon 2022-10-28 2022-10-28 Outpatient R ALEX [facility] [id number] Univers 14:30:00 15:56:16 NADEEM ity of [facility] 2022-10-28 2022-10-28 Ancillary Georgina Molina [facility] 1 .2.840.114 [id number] Univers 14:30:00 15:56:16 Visit Nadeem Salmeron 350.1.13.10 ity of [place].2.[place] [facility] [id number] Dc judith DOYLE 179 [facility] 2022-10-28 2022-10-28 Telephone [facility] 1.2.840.114 [id number] Univers 00:00:00 00:00:00 , Felipe SPECIALTY 350.1.13.10 it[place] [id number] Dc judith BEAULIEU 198 [facility] 2022-10-25 2022-10-25 Community Relations Representative Lab, [facility] 1.2.840.114 10 [id number] Univers 11:30:00 11:45:00 Visit Mino Felipe SPECIALTY 350.1.13. 10 it[place] [id number] Dc judith BEAULIEU 353 [facility] 2022-10-25 2022-10-25 Outpatient R [facility] [id number] Univers 11:30:00 11:30:00 , FELIPE ity [facility] 2022-10-21 2022-10-21 [facility] 1.2.840.114 1 [id number] Univers 08:04:42 23:59:00 Encounter , Felipe SPECIALTY 350.1.13.10 it[place] [id number] Dc judith BEAULIEU 8[address] [facility] 2022-10-21 2022-10-21 Outpatient R [facility] [id number] Univers 08:15:00 10:08:14 , FELIPE ity [facility] 2022-10-21 2022-10-21 Office [facility] 1.2.840.114 10 [id number] Univers 08:15:00 10:08:14 Visit , Felipe SPECIALTY 350.1.13.10 it[place] [id number] Dc judith BEAULIEU 198 [facility] 2022-10-21 2022-10-21 [facility] 1.2.840.114 1 [id number] Univers 00:00:00 00:00:00 , Felipe SPECIALTY 350.1.13.10 it[place] [id number] Dc judith BEAULIEU 809 [facility] 2022-10-19 2022-10-19 Orders Doctor NICOLE 1.2.840.114 [id number] Univers 00:00:00 00:00:00 Only Unassigned, VICKY 350.1.13.10 ity of [place] [facility] 4.2.7.2.686 Neal as [id number] [address] 2022-10-14 2022-10-14 Outpatient R [facility] [id number] Univers 16:30:00 17:13:41 , FELIPE ity of [facility] 2022-10-14 2022-10-14 Telemedici [facility] 1.2.840.114 [id number] Univers 16:30:00 17:13:41 ne Visit , Felipe SPECIALTY 350.1.13.10 it[place] [id number] Dc judith BEAULIEU [address] [place] [address] 2022-10-13 2022-10-13 Telephone [facility] 1.2.840.114 [id number] Univers 00:00:00 00:00:00 , Felipe SPECIALTY 350.1.13.10 it[place] [id number] Dc judith BEAULIEU [address] [place] [address] 2022-10-07 2022-10-07 Telephone [facility] 1.2.840.114 [id number] Univers 00:00:00 00:00:00 , Fleipe SPECIALTY 350.1.13.10 ity of [place] [id number] Dc judith BEAULIEU [address] [place] [address] 2022-10-05 2022-10-05 Telephone [facility] 1.2.840.114 [id number] Univers 00:00:00 00:00:00 , Felipe SPECIALTY 350.1.13.10 ity of [place] [id number] Dc judith BEAULIEU [address] [place] [address] 2022-09-23 2022-09-23 Telephone [facility] 1.2.840.114 [id number] Univers 00:00:00 00:00:00 , Felipe SPECIALTY 350.1.13.10 it[place] [id number] Dc judith BEAULIEU [address] [facility] 2022-09-16 2022-09-16 Telephone Mino [facility] 1.2.840.114 [id number] Univers 00:00:00 00:00:00 , Felipe SPECIALTY 350.1.13.10 [place] [id number] Dc judith BEAULIEU [address] [facility] 2022-09-08 2022-09-08 Orders Doctor NICOLE 1.2.840.114 [id number] Univers 00:00:00 00:00:00 Only Unassigned, VICKY 350.1.13.10 ity of [place] [facility] 4.2.7.2.686 Neal as [phone] [address] 2022-09-07 2022-09-07 Outpatient Laurie CAPELLAN [facility] [id number] Univers 10:00:00 10:00:00 WEN ity o f [facility] 2022-08-23 2022-08-23 Telephone Myles [facility] 1.2.840.114 [id number] Univers 00:00:00 00:00:00 [facility] 350.1.13.10 i ty of [place] [id number] [address] 2022-08-17 2022-08-17 [facility]patient [facility] [id number] Univers 13:30:00 13:30:00 COLLEEN ity [facility] 2022-08-16 2022-08-16 Telephone Berenice [facility] 1.2.840.114 [id number] Univers 00:00:00 00:00:00 [facility] 350.1.13.10 i ty of CL[place] [id number] [address] 2022-08-09 2022-08-09 Outpatient [facility] [id number] Univers 15:15:00 15:15:00 NATE ity [facility] 2022-07-22 2022-07-22 [facility] 1.2.840.114 [id number] Univers 17:45:53 23:59:00 Encounter , Felipe SPECIALTY 350.1.13.10 it[place] [id number] Dc judith BEAULIEU 8[address] [facility] 2022-07-22 2022-07-22 [facility] 1.2.840.114 9 [id number] Univers 17:38:15 17:44:00 Encounter , Felipe SPECIALTY 350.1.13.10 ity [place] [id number] Dc judith BEAULIEU 807 [facility] 2022-07-22 2022-07-22 Outpatient R [facility] [id number] Univers 00:00:00 17:44:00 , FELIPE ity of [facility] 2022-07-22 2022-07-22 [facility] 1.2.840.114 [id number] [facility] 16:30:00 16:45:00 Visit , Felipe SPECIALTY 350.1.13.10 it[place] [id number] Dc judith BEAULIEU 198 [facility] 2022-07-20 2022-07-20 Telephone [facility] 1.2.840.114 [id number] Univers 00:00:00 00:00:00 , Felipe SPECIALTY 350.1.13.10 ity of [place] [id number] Dc judith SALINASY 198 [facility] 2022-07-15 2022-07-15 Telephone [facility] 1.2.840.114 [id number] Univers 00:00:00 00:00:00 , Felipe SPECIALTY 350.1.13.10 ity of [place] [id number] Dc judith BEAULIEU 198 [facility] 2022-07-08 2022-07-08 Outpatient R [facility] [id number] Univers 13:45:00 13:45:00 , FELIPE ity of [facility] 2022-07-07 2022-07-07 Outpatient R TIMI, [facility] [id number] Univers 13:00:00 13:00:00 CHILVANA ity o f [facility] 2022-06-03 2022-06-03 Outpatient R CECELIA MOODY [facility] 10 [id number] Univers 14:00:00 14:00:00 CECELIA MOODY i ty of [facility] 2022-06-03 2022-06-03 Outpatient R CECELIA MOODY [facility] 10 [id number] Univers 14:00:00 14:00:00 CECELIA MOODY i ty [facility] 2022-04-30 2022-04-30 Telephone [facility] 1.2.840.114 [id number] Univers 00:00:00 00:00:00 , Felipe SPECIALTY 350.1.13.10 ity [place] [id number] Dc judith BRADNeva [address] [place] [address] 2022-04-22 2022-04-22 Orders Doctor NICOLE 1.2.840.114 [id number] Univers 00:00:00 00:00:00 Only Unassigned, VICKY 350.1.13.10 ity of [place] [facility] 4.2.7.2.686 [place] as [phone] [address] 2022-04-19 2022-04-19 Telephone [facility] 1.2.840.114 [id number] Univers 00:00:00 00:00:00 , [place] SPECIALTY [id number] [id number] [phone] Dc judith BEAULIEU [address] [place] [address] 2022-04-07 2022-04-07 Outpatient R RADIOLOGY [facility] [id number] Univers 00:00:00 00:00:00 ity of [facility] 2022-03-25 2022-03-25 Community Relations Representative Test, Vtc Pulmonary Function [facility] 1.2.840.114 [id number] Univers 08:00:00 09:00:00 Visit Unknown, Attending MULTISPEC 350.1.13. 10 ity of [place] 4.2.7.2.686 [facility] [phone] [facility] [address] [facility] 2022-03-25 2022-03-25 Outpatient R UNKNOWN, [facility] [id number] Univers 08:00:00 08:00:00 ATTENDING ity of [facility] 2022-03-24 2022-03-24 Outpatient R [facility] [id number] Univers 08:00:00 08:00:00 ity of [facility] 2022-03-24 2022-03-24 Outpatient R [facility] [id number] Univers 08:00:00 08:00:00 ity [facility] 2022-03-23 2022-03-23 Laboratory Only, Adc Test [facility] 1.2.840. 114 [id number] Univers 14:00:00 14:15:00 Only Lena Quinones 350.1.13.10 ity of [place] 4.2.7.2.686 [facility] [id number] [facility] [address] 2022-03-23 2022-03-23 Outpatient R JONI [facility] [id number] Univers 14:00:00 14:00:00 [facility] 2022-03-23 Orders Doctor NICOLE 1.2.840.114 [id number] Univers 00:00:00 00:00:00 Only Unassigned, VICKY 350.1.13.10 ity of [place] [facility] 4.2.7.2.686 Neal [id number] [facility] [address] 2022-03-16 2022-03-16 Outpatient R [facility] [id number] Univers 13:00:00 13:00:00 ity of [facility] 2022-03-11 2022-03-11 Telemedici Mino [facility] 1.2.840.114 [id number] Univers 16:30:00 16:45:00 ne Visit , Felipe SPECIALTY 350.1.13.10 ity of CARE 4.2.7.2.686 [facility] AT [phone] Dc dical VICTORY 198 [facility] 2022-03-11 2022-03-11 Outpatient R [facility] [id number] Univers 16:30:00 16:30:00 , FELIPE ity of [facility] 2022-03-11 2022-03-11 Orders Doctor NICOLE 1.2.840.114 [id number] Univers 00:00:00 00:00:00 Only Unassigned, VICKY 350.1.13.10 ity of [place] [facility] 4.2.7.2.686 [place] as [phone] [address] 2022-03-11 2022-03-11 Telephone Shalom [facility] 1.2.213.569 [id number] Univers 00:00:00 00:00:00 Bettie NG 350.1.13.10 i [place] [phone] Dc dickarissa NAL 296 [facility] 2022-03-10 2022-03-10 [facility] 1.2.840.114 [id number] Univers 15:11:33 23:59:00 Encounter , Felipe Y HEALTH 350.1.13.10 [place] [id number] [facility] [address] 2022-03-10 2022-03-10 [facility] 1.2.840.114 [id number] Univers 15:11:05 23:59:00 Encounter , Felipe Y HEALTH 350.1.13.10 [id number] [place] [address] [place] 2022-03-10 2022-03-10 [facility] 1.2.840.114 [id number] Univers 15:00:00 15:10:00 Encounter , Felipe Y HEALTH 350.1.13.10 [place] [id number] [facility] [address] [place] [address] 2022-03-10 2022-03-10 Outpatient R [facility] [id number] Univers 14:50:03 14:59:00 , FELIPE ity of [facility] 2022-03-10 2022-03-10 Hospital [facility] 1.2.840.114 [id number] Univers 14:45:00 14:59:00 Encounter , Felipe Y HEALTH 350.1.13.10 it[place] [id number] [facility] [address] 2022-03-09 2022-03-09 Telephone [facility] 1.2.840.114 [id number] Univers 00:00:00 00:00:00 , Felipe SPECIALTY 350.1.13.10 [place] [phone] Dc judith BEAULIEU [address] [place] [address] 2022-03-08 2022-03-08 Telephone [facility] 1.2.840.114 [id number] Univers 00:00:00 00:00:00 , Felipe SPECIALTY 350.1.13.10 [place] [phone] Dc judith BEAULIEU [address] [place] [address] 2022-03-03 2022-03-03 Outpatient R [facility] [id number] Univers 13:00:00 13:00:00 ity of [facility] 2022-03-01 2022-03-01 Outpatient [id number]- [id number] [id number] 00:00:00 00:00:00 Visit [id number]-r -q603-why [id number] [id number] 246436 4159-07-25 2022-03-01 Letter Testing, UNIVERSIT 1.2.840.114 [id number] Univers 00:00:00 00:00:00 (Out) [facility] Y HEALTH 350.1.13.10 i ty of Pulmonary CL[place] [id number] Med ical [address] 2022-02-26 2022-02-26 Orders Doctor NICOLE 1.2.840.114 [id number] Univers 00:00:00 00:00:00 Only Unassigned, VICKY 350.1.13.10 ity of [place] [facility] 4.2.7.2.686 [place] as [id number] [facility] [address] 2022-02-25 2022-02-25 Telephone [facility] 1.2.840.114 [id number] Univers 00:00:00 00:00:00 , Felipe SPECIALTY 350.1.13.10 [place] [id number] [facility] 198 [facility] 2022-02-23 2022-02-23 Office Fellow, Pulmonary UNIVERSIT 1.2.84 0.114 [id number] Univers 08:00:00 09:00:00 Visit Sun Mack [facility] 350.1. 13.10 it[place] of CL[place] [id number] [facility] [address] 2022-02-23 2022-02-23 Outpatient Laurie MACK [facility] [id number] Univers 08:00:00 08:00:00 SUN murcia o f [facility] 2022-02-16 2022-02-16 [facility] [id number] Univers 13:00:00 13:00:00 NATE y [facility] 2022-02-10 2022-02-10 Outpatient R [facility] [id number] Univers 00:00:00 00:00:00 , FELIPE ity [facility] 2022-02-10 2022-02-10 Outpatient R [facility] [id number] Univers 00:00:00 00:00:00 , FELIPE ity [facility] 2022-02-09 2022-02-09 Outpatient [id number]- [id number] ef [id number] 00:00:00 00:00:00 Visit [id number]-0161 [id number]-4473-b -q646-gul 399-aaea3e [id number] c12bd3 2022-02-05 2022-02-05 Outpatient Laurie MACK [facility] [id number] Univers 09:00:00 09:00:00 SUN corbin [facility] 2022-02-05 2022-02-05 Outpatient R MARTINA [facility] [id number] Univers 09:00:00 09:00:00 SUN corbin [facility] 2022-01-18 2022-01-18 Outpatient R MINO [facility] [id number] Univers 00:00:00 00:00:00 , FELIPE murcia [facility] 2022-01-18 2022-01-18 Outpatient R MINO [facility] [id number] Univers 00:00:00 00:00:00 , FELIPEKENYON murcia [facility] 2022-01-18 2022-01-18 Outpatient R MINO [facility] [id number] Univers 00:00:00 00:00:00 , FELIPE murcia [facility] 2022-01-05 2022-01-05 [facility] [id number] Univers 16:00:00 16:00:00 NATEORI murcia [facility] 2022-01-05 2022-01-05 [facility] [id number] Univers 16:00:00 16:00:00 NATE [facility] 2021-12-29 2021-12-29 Telephone [facility] 1.2.840.114 [id number] Univers 00:00:00 00:00:00 , Felipe SPECIALTY 350.1.13.10 ity of CARE 4.2.7.2.686 [facility] CENTER AT [phone] [facility] [address] 2021-12-29 2021-12-29 Telephone [facility] 1.2.840.114 [id number] Univers 00:00:00 00:00:00 , Felipe SPECIALTY 350.1.13.10 ity of CARE 4.2.7.2.686 [facility] [phone] [facility] 198 [facility] 2021-12-23 2021-12-23 Telephone [facility] 1.2.840.114 [id number] Univers 00:00:00 00:00:00 , Felipe SPECIALTY 350.1.13.10 [place] [id number] Dc judith BEAULIEU 198 [facility] 2021-12-17 2021-12-17 Outpatient R [facility] [id number] Univers 13:46:31 23:59:00 , FELIPE ity [facility] 2021-12-17 2021-12-17 [facility] 1.2.840.114 [id number] Univers 13:46:31 23:59:00 Encounter , Felipe SPECIALTY 350.1.13.10 [place] [phone] Dc judith BEAULIEU 8[address] [facility] 2021-12-17 2021-12-17 Outpatient R [facility] [id number] Univers 13:46:31 23:59:00 , FELIPE ity [facility] 2021-12-17 2021-12-17 Community Relations Representative Vls-Lab [facility] 1.2.840.114 [id number] Univers 16:45:00 17:00:00 Visit Keith Herzogya SPECIALTY 350.1.13. 10 [place] [id number] Dc judith BEAULIEU [address] [facility] 2021-12-17 2021-12-17 Outpatient R [facility] [id number] Univers 13:45:00 16:36:26 , FELIPE ity [facility] 2021-12-17 2021-12-17 Outpatient R [facility] [id number] Univers 13:45:00 16:36:26 , FELIPE ity [facility] 2021-12-17 2021-12-17 Office [facility] 1.2.840.114 [id number] Univers 13:45:00 16:36:26 Visit , Felipe SPECIALTY 350.1.13.10 [place] [id number] Dc judith BEAULIEU 198 [facility] 2021-12-17 2021-12-17 Outpatient R NIKKISHARLENE [facility] [id number] Univers 13:45:00 16:36:26 , FELIPE ity [facility] 2021-12-17 2021-12-17 Office [facility] 1.2.840.114 [id number] Univers 13:45:00 16:36:26 Visit , Felipe SPECIALTY 350.1.13.10 [place] [phone] [facility] [address] [place] [address] 2021-12-17 2021-12-17 Outpatient R NIKKISHARLENE [facility] [id number] Univers 13:45:00 13:45:00 , FELIPE itneva [facility] 2021-11-17 2021-11-17 Orders Doctor NICOLE Goncalves.2.840.114 [id number] Univers 00:00:00 00:00:00 Only Unassigned, VICKY 350.1.13.10 ity of [place] [facility] 4.2.7.2.686 [place] as [phone] [address] 2021-11-04 2021-11-04 Orders Doctor RIVERA 1.2.840.114 [id number] Univers 00:00:00 00:00:00 Only Unassigned, VICKY 350.1.13.10 ity of [place] [facility] 4.2.7.2.686 [place] as [id number] [address] 2021-10-19 2021-10-19 Orders Doctor NICOLE 1.2.840.114 [id number] Univers 00:00:00 00:00:00 Only Unassigned, VICKY 350.1.13.10 ity of [place] [facility]OS[facility] 4.2.7.2.686 [place] as [phone] [address] 2021-04-10 2021-04-10 Outpatient R TIMI [facility] [id number] Univers 10:00:00 10:00:00 PAGE murcia [facility] 2021-04-10 2021-04-10 Orders Doctor NICOLE Yusuf2.840.114 [id number] Univers 00:00:00 00:00:00 Only Unassigned, VICKY 350.1.13.10 ity of [place] [facility] 4.2.7.2.686 [place] [id number] [facility] [address] 2021-04-09 2021-04-09 [facility] 1.2.840.114 [id number] Univers 15:40:00 17:13:00 Junior Ng 350.1.13.10 i ty of [place]2.[place] [facility] [id number] [facility] [address] 2021-04-09 2021-04-09 Emergency X LARKIN, [facility] ERT [id number] Univers 15:27:00 15:27:00 [facility] 2020-06-27 2020-06-27 Outpatient G_Pappas [facility] [id number] [place] 12:50:00 12:50:00 120 [facility] Results Test Description Test Time Test Comments Results Result Comments Source D-DIMER 2023-01-20 21:55:34 Test Item Value Reference Range Interpretation Comme nts D-DIMER (test code = 1.08 See_Comment H [Autom ated message] The 1107340097) system which ge nerated this result tra nsmitted reference range : <0.50 ?g/mL (FEU). e reference range was not used to [...] diagnosis. Lab Interpretation Abnormal (test code = 26550-6) [id number] 21:55:14 Test Item Value Reference Range Interpretation Comments WBC (test code = 6690-2) 11.37 See_Comment H [A utomated message] The system [employer] [facility] generated this result transmit paige reference range : 4.30 - 11.10 10*3/?L. The reference range was not used to interpret this result as normal/abnormal . RBC (test code = 789-8) 2.56 See_Comment L [Au tomated message] The system [facility] generated this result transmit paige reference range [...] 217 See_Comment [Au tomated message] The system [employer] [facility] generated this result transmit paige reference range : 166 - 358 10*3/?L. The reference range was not used to interpret this result as normal/abnormal . MPV (test code = 11.1 fL 9.5-12.9 98779-8) RDW-CV (test code = 15.3 % 12.0-15.5 788-0) RDW-SD (test code = 49.4 fL 39.0-49.9 31367-2) NRBC x10^3 (test code = 0.02 See_Comment [Au tomated message] 7590180087) The system [employer] [facility] generated this result transmit paige reference range : 10*3/?L. The reference range was not used to interpret this result as normal/abnormal . NRBC/100 WBC (test code 0.2 See_Comment [Au tomated message] = 6203874228) The system [facility] generated this result transmit paige reference range : 0.0 - 10.0 /100 WBC s. The reference r prasanth was not used to interpret this result as normal/abnormal . IPF % (test code = 5953041186) Lab Interpretation (test Abnormal code = 12565-6) [facility] METABOLIC PANEL (NA, K, CL, CO2, GLUCOSE, BUN, CREATININE, CA)2023-01-19 12:17:50 Test Item Value Reference Range Interpretation Comments NA (test code = 135 mmol/L 135-145 2198232534) K (test code = 3.9 mmol/L 3.5-5.0 5978399965) CL (test code = 106 mmol/L 98-108 8011180525) CO2 TOTAL (test code = 25 mmol/L 23-31 6273546073) AGAP (test code = 4 2-16 7811927508) BUN (test code = 9 mg/dL 7-23 6503985180) GLUCOSE (test code = 109 mg/dL 70-110 7969385856) CREATININE (test code = 0.57 mg/dL 0.50-1.04 9819548040) CALCIUM (test code = 7.4 mg/dL 8.6-10.6 L 5379886565) eGFR (test code = 111.8 mL/min/1.73m2 6804055999) JULI (test code = JULI) Association of [...] tests). Lab Interpretation Abnormal (test code = 61174-9) [facility] 12:17:50 Test Item Value Reference Range Interpretation Comments MAGNESIUM (test code = 0176246249) 2.1 mg/dL 1.7-2.4 Lab Interpretation (test code = Normal 26433-9) [facility] 12:17:50 Test Item Value Reference Range Interpretation Comments PHOSPHORUS (test code = 3593027910) 2.2 mg/dL 2.5-5.0 L Lab Interpretation (test code = Abnormal 76288-0) [facility] WITH [id number] 12:01:08 Test Item Value Reference Range Interpretation Comments WBC (test code = 14.40 See_Comment H [Automated 6690-2) message] The system which generated this result transmit paige reference range : 4.30 - 11.10 10*3/?L. The reference range was not used to interpret this result as normal/abnormal . RBC (test code = 2.76 See_Comment L [Automated 189-8) message] The system which generated this result [...] (test code = 50.0 fL 39.0-49.9 H 70419-0) RDW-CV (test code = 15.6 % 12.0-15.5 H 788-0) PLT (test code = 177 See_Comment [Automated 777-3) message] The system which generated this result transmit paige reference range : 166 - 358 10*3/ ?L. The reference range was not u sed to interpret th is result as normal/abnormal . MPV (test code = 11.4 fL 9.5-12.9 86834-5) NRBC/100 WBC (test 0.0 See_Comment [Automat ed code = 4548106457) message] The system which generated this result transmit paige reference range : 0.0 - 10.0 /100 WBCs. The reference range was not used to interpret this result as normal/abnormal . NRBC x10^3 (test code See_Comment [Auto mated = 7648782927) message] The system which generated this result transmit paige reference range : 10*3/?L. The reference range was not used to interpret this result as normal/abnormal . GRAN MAT (NEUT) % 82.1 % (test code = 770-8) IMM GRAN % (test code 0.60 % = 8046341306) LYMPH % (test code = 9.4 % 736-9) MONO % (test code = 7.4 % 5905-5) EOS % (test code = 0.4 % 713-8) BASO % (test code = 0.1 % 706-2) GRAN MAT x10^3(ANC) 11.83 10*3/uL 1.88-7.09 H (test code = 7868862665) IMM GRAN x10^3 (test 0.08 10*3/uL 0.00-0.06 H code = 0749722844) LYMPH x10^3 (test code 1.35 10*3/uL 1.32-3.29 = 731-0) MONO x10^3 (test code 1.06 10*3/uL 0.33-0.92 H = 742-7) EOS x10^3 (test code = 0.06 10*3/uL 0.03-0.39 711-2) BASO x10^3 (test code 0.01-0.07 = 704-7) Lab Interpretation Abnormal (test code = 49333-1) [facility] Packed RBC (in units), 2 Units 2023-01-18 02:43:04 Test Item Value Reference Range Interpretation Comments Cross Match Result Compatible (test code = 4409) ISBT Blood Type Code 6200 (test code = 927419) Unit Blood Type (test A Pos code = 4410) Unit Number (test [id number] code = 4411) Blood Expiration Date & Time (test code = 853772) Status Information Returned from (test code = 4412) Issue Product Red Blood Cells Identification (test code = 4413) Product Code (test [id number] Performed at code = 4414) [facility] Laboratory [facility] Blood [address] [address]Ocjd Free: [phone] A No. [id number] [facility] Packed RBC (in units), 2 Units 2023-01-18 02:43:04 Test Item Value Reference Range Interpretation Comments Cross Match Result Compatible (test code = 4409) ISBT Blood Type Code 6200 (test code = 783041) Unit Blood Type (test A Pos code = 4410) Unit Number (test [id number] code = 4411) Blood Expiration Date & Time (test code = 011060) Status Information Returned from (test code = 4412) Issue Product Red Blood Cells Identification (test code = 4413) Product Code (test [id number] Performed at code = 4414) [facility] Laboratory Services [address] [address]Ifzn Free: [phone] A No. [id number] [facility]NA+K+GLU+CA2+2023-01-18 02:05:53 Test Item Value Reference Range Interpretation Comments PH (test code = 2) 7.36 7.35-7.45 PCO2 (test code = 31 See_Comment L [Automate d message] 6807430105) The system [facility] generated this result transmit paige reference range : 35 - 45 mmHg. The reference range was not used to interpret this result as normal/abnormal . PO2 (test code = 153 See_Comment H [Automated message] 1624450812) The system [facility] generated this result transmit paige reference range : 80 - 100 mmHg. The reference range was not used to interpret this result as normal/abnormal . HCO3 (test code = 17 See_Comment L [Automate d message] 6418998852) The system [facility] generated this result transmit paige reference range : 22 - 26 mEq/L. The reference range was not used to interpret this result as normal/abnormal . BE (test code = -7.4 See_Comment L [Automated message] 5696822087) The system [facility] generated this result transmit paige reference range : -3.0 - 3.0 mEq/ L. The reference r prasanth was not used to interpret this result as normal/abnormal . THB (test code = 9.0 g/dL 12.0-16.0 L 7725922666) %O2HB (test code = 97.7 % 94.0-99.0 3685441562) %COHB ART (test code = 0.3 % 0.0-1.5 0832142846) %METHB ART (test code = 0.2 % 0.4-1.5 L 0942350566) VOL%O2 ART (test code = 12.7 % 15.0-23.0 L QUES 6096425624) NA (test code = 135 mmol/L 135-145 7513612862) K+ (test code = 4.0 mmol/L 3.5-5.0 0996433065) AC CA IONZ (test code = 4.90 mg/dL 4.50-5.30 9228404010) GLUCOSE (test code = 133 mg/dL 70-110 H 8598986128) Lab Interpretation Abnormal (test code = 58134-7) [facility]GLU[facility]CA2+2023-01-18 02:05:53 Test Item Value Reference Range Interpretation Comments PH (test code = 2) 7.36 7.35-7.45 PCO2 (test code = 31 See_Comment L [Automate d message] 0850899592) The system [facility] generated this result transmit paige reference range : 35 - 45 mmHg. The reference range was not used to interpret this result as normal/abnormal . PO2 (test code = 153 See_Comment H [Automated message] 3950346610) The system [facility] generated this result transmit paige reference range : 80 - 100 mmHg. The reference range was not used to interpret this result as normal/abnormal . HCO3 (test code = 17 See_Comment L [Automate d message] 0137423065) The system [facility] generated this result transmit paige reference range : 22 - 26 mEq/L. The reference range was not used to interpret this result as normal/abnormal . BE (test code = -7.4 See_Comment L [Automated message] 9343376213) The system [facility] generated this result transmit paige reference range : -3.0 - 3.0 mEq/ L. The reference r prasanth was not used to interpret this result as normal/abnormal . THB (test code = 9.0 g/dL 12.0-16.0 L 1721391153) %O2HB (test code = 97.7 % 94.0-99.0 9446880270) %COHB ART (test code = 0.3 % 0.0-1.5 3419062052) %METHB ART (test code = 0.2 % 0.4-1.5 L 6660481249) VOL%O2 ART (test code = 12.7 % 15.0-23.0 L QUES 0059369011) NA (test code = 135 mmol/L 135-145 3990746879) K+ (test code = 4.0 mmol/L 3.5-5.0 0799118054) AC CA IONZ (test code = 4.90 mg/dL 4.50-5.30 5579503252) GLUCOSE (test code = 133 mg/dL 70-110 H 5799528484) Lab Interpretation Abnormal (test code = 02986-4) [facility]GLU[facility]CA2+2023-01-18 02:05:38 Test Item Value Reference Range Interpretation Comments PH (test code = 2) 7.36 7.35-7.45 PCO2 (test code = 31 See_Comment L [Automate d message] 4168208488) The system [facility] generated this result transmit paige reference range : 35 - 45 mmHg. The reference range was not used to interpret this result as normal/abnormal . PO2 (test code = 155 See_Comment H [Automated message] 4189534229) The system [facility] generated this result transmit paige reference range : 80 - 100 mmHg. The reference range was not used to interpret this result as normal/abnormal . HCO3 (test code = 17 See_Comment L [Automate d message] 7366733559) The system [facility] generated this result transmit paige reference range : 22 - 26 mEq/L. The reference range was not used to interpret this result as normal/abnormal . BE (test code = -7.7 See_Comment L [Automated message] 4784385353) The system [facility] generated this result transmit paige reference range : -3.0 - 3.0 mEq/ L. The reference r prasanth was not used to interpret this result as normal/abnormal . THB (test code = 7.8 g/dL 12.0-16.0 LL 8479571936) %O2HB (test code = 98.2 % 94.0-99.0 1521536093) %COHB ART (test code = 0.0 % 0.0-1.5 6817787709) %METHB ART (test code = 0.3 % 0.4-1.5 L 6767937437) VOL%O2 ART (test code = 11.1 % 15.0-23.0 L QUES 6079356316) NA (test code = 135 mmol/L 135-145 7720582250) K+ (test code = 3.6 mmol/L 3.5-5.0 6140162145) AC CA IONZ (test code = 4.40 mg/dL 4.50-5.30 L 4978434823) GLUCOSE (test code = 121 mg/dL 70-110 H 5525833719) Lab Interpretation Abnormal (test code = 75761-9) [facility]+K+GLU+CA2+2023-01-18 02:05:38 Test Item Value Reference Range Interpretation Comments PH (test code = 2) 7.36 7.35-7.45 PCO2 (test code = 31 See_Comment L [Automate d message] 0717733602) The system [facility] generated this result transmit paige reference range : 35 - 45 mmHg. The reference range was not used to interpret this result as normal/abnormal . PO2 (test code = 155 See_Comment H [Automated message] 7524862758) The system [facility] generated this result transmit paige reference range : 80 - 100 mmHg. The reference range was not used to interpret this result as normal/abnormal . HCO3 (test code = 17 See_Comment L [Automate d message] 4596902822) The system [facility] generated this result transmit paige reference range : 22 - 26 mEq/L. The reference range was not used to interpret this result as normal/abnormal . BE (test code = -7.7 See_Comment L [Automated message] 4223268922) The system [facility] generated this result transmit paige reference range : -3.0 - 3.0 mEq/ L. The reference r prasanth was not used to interpret this result as normal/abnormal . THB (test code = 7.8 g/dL 12.0-16.0 LL 1539636350) %O2HB (test code = 98.2 % 94.0-99.0 [id number]) %COHB ART (test code = 0.0 % 0.0-1.5 [id number]) %METHB ART (test code = 0.3 % 0.4-1.5 L [id number]) VOL%O2 ART (test code = 11.1 % 15.0-23.0 L QUES [id number]) NA (test code = 135 mmol/L 135-145 [id number]) K+ (test code = 3.6 mmol/L 3.5-5.0 [id number]) AC CA IONZ (test code = 4.40 mg/dL 4.50-5.30 L [id number]) GLUCOSE (test code = 121 mg/dL 70-110 H 6082842016) Lab Interpretation Abnormal (test code = 53534-7) [facility]:59:13 Test Item Value Reference Range Interpretation Comments PH (test code = 2) 7.37 7.35-7.45 PCO2 (test code = 31 See_Comment L [Automate d message] [id number]) The system [facility] generated this result transmit paige reference range : 35 - 45 mmHg. The reference range was not used to interpret this result as normal/abnormal . PO2 (test code = 191 See_Comment H [Automated message] [id number]) The system [facility] generated this result transmit paige reference range : 80 - 100 mmHg. The reference range was not used to interpret this result as normal/abnormal . HCO3 (test code = 17 See_Comment L [Automate d message] [id number]) The system [facility] generated this result transmit paige reference range : 22 - 26 mEq/L. The reference range was not used to interpret this result as normal/abnormal . BE (test code = -6.9 See_Comment L [Automated message] [id number]) The system [facility] generated this result transmit paige reference range : -3.0 - 3.0 mEq/ L. The reference r prasanth was not used to interpret this result as normal/abnormal . THB (test code = 9.2 g/dL 12.0-16.0 L 8064853309) %O2HB (test code = 98.7 % 94.0-99.0 6270113966) %COHB ART (test code = 0.1 % 0.0-1.5 6142977470) %METHB ART (test code = 0.3 % 0.4-1.5 L 3814272764) VOL%O2 ART (test code = 13.2 % 15.0-23.0 L QUES 1795981464) NA (test code = 136 mmol/L 135-145 8208889637) K+ (test code = 3.8 mmol/L 3.5-5.0 8847308403) AC CA IONZ (test code = 4.60 mg/dL 4.50-5.30 6620123508) GLUCOSE (test code = 113 mg/dL 70-110 H 1476591027) Lab Interpretation Abnormal (test code = 00315-0) [facility]:59:13 Test Item Value Reference Range Interpretation Comments PH (test code = 2) 7.37 7.35-7.45 PCO2 (test code = 31 See_Comment L [Automate d message] [id number]) The system [facility] generated this result transmit paige reference range : 35 - 45 mmHg. The reference range was not used to interpret this result as normal/abnormal . PO2 (test code = 191 See_Comment H [Automated message] [id number]) The system [facility] generated this result transmit paige reference range : 80 - 100 mmHg. The reference range was not used to interpret this result as normal/abnormal . HCO3 (test code = 17 See_Comment L [Automate d message] [id number]) The system [facility] generated this result transmit paige reference range : 22 - 26 mEq/L. The reference range was not used to interpret this result as normal/abnormal . BE (test code = -6.9 See_Comment L [Automated message] 7208242582) The system [facility] generated this result transmit paige reference range : -3.0 - 3.0 mEq/ L. The reference r prasanth was not used to interpret this result as normal/abnormal . THB (test code = 9.2 g/dL 12.0-16.0 L 0912636595) %O2HB (test code = 98.7 % 94.0-99.0 8800132480) %COHB ART (test code = 0.1 % 0.0-1.5 3921930122) %METHB ART (test code = 0.3 % 0.4-1.5 L 2660672318) VOL%O2 ART (test code = 13.2 % 15.0-23.0 L QUES 4312468111) NA (test code = 136 mmol/L 135-145 6471803180) K+ (test code = 3.8 mmol/L 3.5-5.0 4959177619) AC CA IONZ (test code = 4.60 mg/dL 4.50-5.30 7154496158) GLUCOSE (test code = 113 mg/dL 70-110 H 3985290256) Lab Interpretation Abnormal (test code = 44276-4) [facility]:58:53 Test Item Value Reference Range Interpretation Comments PH (test code = 2) 7.34 7.35-7.45 L PCO2 (test code = 41 See_Comment [Automate d message] [id number]) The system [facility] generated this result transmit paige reference range : 35 - 45 mmHg. The reference range was not used to interpret this result as normal/abnormal . PO2 (test code = 203 See_Comment H [Automated message] [id number]) The system [facility] generated this result transmit paige reference range : 80 - 100 mmHg. The reference range was not used to interpret this result as normal/abnormal . HCO3 (test code = 21 See_Comment L [Automate d message] 8409550481) The system [facility] generated this result transmit paige reference range : 22 - 26 mEq/L. The reference range was not used to interpret this result as normal/abnormal . BE (test code = -4.3 See_Comment L [Automated message] 9560105654) The system [facility] generated this result transmit paige reference range : -3.0 - 3.0 mEq/ L. The reference r prasanth was not used to interpret this result as normal/abnormal . THB (test code = 10.9 g/dL 12.0-16.0 L 9392819674) %O2HB (test code = 98.4 % 94.0-99.0 6797861013) %COHB ART (test code = 0.3 % 0.0-1.5 9633157762) %METHB ART (test code = 0.1 % 0.4-1.5 L 4986898709) VOL%O2 ART (test code = 15.5 % 15.0-23.0 QUES 4558009764) NA (test code = 136 mmol/L 135-145 2042059533) K+ (test code = 3.4 mmol/L 3.5-5.0 L 1431121216) AC CA IONZ (test code = 4.60 mg/dL 4.50-5.30 4512688834) GLUCOSE (test code = 98 mg/dL 70-110 1118760369) Lab Interpretation Abnormal (test code = 48570-7) [facility]:58:53 Test Item Value Reference Range Interpretation Comments PH (test code = 2) 7.34 7.35-7.45 L PCO2 (test code = 41 See_Comment [Automate d message] 4030858720) The system [facility] generated this result transmit paige reference range : 35 - 45 mmHg. The reference range was not used to interpret this result as normal/abnormal . PO2 (test code = 203 See_Comment H [Automated message] [id number]) The system [facility] generated this result transmit paige reference range : 80 - 100 mmHg. The reference range was not used to interpret this result as normal/abnormal . HCO3 (test code = 21 See_Comment L [Automate d message] [id number]) The system [facility] generated this result transmit paige reference range : 22 - 26 mEq/L. The reference range was not used to interpret this result as normal/abnormal . BE (test code = -4.3 See_Comment L [Automated message] 4364116331) The system [facility] generated this result transmit paige reference range : -3.0 - 3.0 mEq/ L. The reference r prasanth was not used to interpret this result as normal/abnormal . THB (test code = 10.9 g/dL 12.0-16.0 L 7874130904) %O2HB (test code = 98.4 % 94.0-99.0 7487715175) %COHB ART (test code = 0.3 % 0.0-1.5 9049162379) %METHB ART (test code = 0.1 % 0.4-1.5 L 4552260700) VOL%O2 ART (test code = 15.5 % 15.0-23.0 QUES 1892476784) NA (test code = 136 mmol/L 135-145 8613885336) K+ (test code = 3.4 mmol/L 3.5-5.0 L 3869144600) AC CA IONZ (test code = 4.60 mg/dL 4.50-5.30 7454122053) GLUCOSE (test code = 98 mg/dL 70-110 0778665540) Lab Interpretation Abnormal (test code = 30999-1) [facility]:58:38 Test Item Value Reference Range Interpretation Comments PH (test code = 2) 7.39 7.35-7.45 PCO2 (test code = 33 See_Comment L [Automate d message] 1824620198) The system [facility] generated this result transmit paige reference range : 35 - 45 mmHg. The reference range was not used to interpret this result as normal/abnormal . PO2 (test code = 221 See_Comment H [Automated message] [id number]) The system [facility] generated this result transmit paige reference range : 80 - 100 mmHg. The reference range was not used to interpret this result as normal/abnormal . HCO3 (test code = 19 See_Comment L [Automate d message] 6369634281) The system [facility] generated this result transmit paige reference range : 22 - 26 mEq/L. The reference range was not used to interpret this result as normal/abnormal . BE (test code = -4.8 See_Comment L [Automated message] 8540522211) The system [facility] generated this result transmit paige reference range : -3.0 - 3.0 mEq/ L. The reference r prasanth was not used to interpret this result as normal/abnormal . THB (test code = 10.7 g/dL 12.0-16.0 L 2377258548) %O2HB (test code = 98.5 % 94.0-99.0 7982769066) %COHB ART (test code = 0.3 % 0.0-1.5 0311955773) %METHB ART (test code = 0.1 % 0.4-1.5 L 0845308372) VOL%O2 ART (test code = 15.3 % 15.0-23.0 QUES 7920158795) NA (test code = 136 mmol/L 135-145 1862904678) K+ (test code = 3.6 mmol/L 3.5-5.0 9298496774) AC CA IONZ (test code = 4.60 mg/dL 4.50-5.30 5549799529) GLUCOSE (test code = 102 mg/dL 70-110 9158466277) Lab Interpretation Abnormal (test code = 18881-3) [facility]:58:38 Test Item Value Reference Range Interpretation Comments PH (test code = 2) 7.39 7.35-7.45 PCO2 (test code = 33 See_Comment L [Automate d message] 7462346452) The system [facility] generated this result transmit paige reference range : 35 - 45 mmHg. The reference range was not used to interpret this result as normal/abnormal . PO2 (test code = 221 See_Comment H [Automated message] 6147463264) The system [facility] generated this result transmit paige reference range : 80 - 100 mmHg. The reference range was not used to interpret this result as normal/abnormal . HCO3 (test code = 19 See_Comment L [Automate d message] 5100423392) The system [facility] generated this result transmit paige reference range : 22 - 26 mEq/L. The reference range was not used to interpret this result as normal/abnormal . BE (test code = -4.8 See_Comment L [Automated message] 4750919763) The system [facility] generated this result transmit paige reference range : -3.0 - 3.0 mEq/ L. The reference r prasanth was not used to interpret this result as normal/abnormal . THB (test code = 10.7 g/dL 12.0-16.0 L 2399412276) %O2HB (test code = 98.5 % 94.0-99.0 1143603171) %COHB ART (test code = 0.3 % 0.0-1.5 2432162236) %METHB ART (test code = 0.1 % 0.4-1.5 L 7187273281) VOL%O2 ART (test code = 15.3 % 15.0-23.0 QUES 1130251536) NA (test code = 136 mmol/L 135-145 1406613500) K+ (test code = 3.6 mmol/L 3.5-5.0 6113398348) AC CA IONZ (test code = 4.60 mg/dL 4.50-5.30 9159258801) GLUCOSE (test code = 102 mg/dL 70-110 1091570595) Lab Interpretation Abnormal (test code = 87111-2) [facility]:53:50 Test Item Value Reference Range Interpretation Comments PH (test code = 2) 7.38 7.35-7.45 PCO2 (test code = 33 See_Comment L [Automate d message] 1539248245) The system [facility] generated this result transmit paige reference range : 35 - 45 mmHg. The reference range was not used to interpret this result as normal/abnormal . PO2 (test code = 183 See_Comment H [Automated message] 2843529131) The system [facility] generated this result transmit paige reference range : 80 - 100 mmHg. The reference range was not used to interpret this result as normal/abnormal . HCO3 (test code = 19 See_Comment L [Automate d message] 1390318104) The system [facility] generated this result transmit paige reference range : 22 - 26 mEq/L. The reference range was not used to interpret this result as normal/abnormal . BE (test code = -5.3 See_Comment L [Automated message] 3083314328) The system [facility] generated this result transmit paige reference range : -3.0 - 3.0 mEq/ L. The reference r prasanth was not used to interpret this result as normal/abnormal . THB (test code = 7.8 g/dL 12.0-16.0 LL 3361822486) %O2HB (test code = 97.7 % 94.0-99.0 5240238752) %COHB ART (test code = 0.7 % 0.0-1.5 9371718176) %METHB ART (test code = 0.4 % 0.4-1.5 9109392251) VOL%O2 ART (test code = 11.2 % 15.0-23.0 L QUES 3870612641) NA (test code = 129 mmol/L 135-145 L 0760864820) K+ (test code = 3.7 mmol/L 3.5-5.0 3013881770) AC CA IONZ (test code = 4.30 mg/dL 4.50-5.30 L 1508736884) GLUCOSE (test code = 128 mg/dL 70-110 H 0892177042) Lab Interpretation Abnormal (test code = 49720-8) [facility]:53:50 Test Item Value Reference Range Interpretation Comments PH (test code = 2) 7.38 7.35-7.45 PCO2 (test code = 33 See_Comment L [Automate d message] 0005226467) The system [facility] generated this result transmit paige reference range : 35 - 45 mmHg. The reference range was not used to interpret this result as normal/abnormal . PO2 (test code = 183 See_Comment H [Automated message] 4508693931) The system [facility] generated this result transmit paige reference range : 80 - 100 mmHg. The reference range was not used to interpret this result as normal/abnormal . HCO3 (test code = 19 See_Comment L [Automate d message] 8480966338) The system [facility] generated this result transmit paige reference range : 22 - 26 mEq/L. The reference range was not used to interpret this result as normal/abnormal . BE (test code = -5.3 See_Comment L [Automated message] 0204926191) The system [facility] generated this result transmit paige reference range : -3.0 - 3.0 mEq/ L. The reference r prasanth was not used to interpret this result as normal/abnormal . THB (test code = 7.8 g/dL 12.0-16.0 LL 2997822479) %O2HB (test code = 97.7 % 94.0-99.0 5432993280) %COHB ART (test code = 0.7 % 0.0-1.5 9715445191) %METHB ART (test code = 0.4 % 0.4-1.5 7730373279) VOL%O2 ART (test code = 11.2 % 15.0-23.0 L QUES 8764427957) NA (test code = 129 mmol/L 135-145 L 9814485829) K+ (test code = 3.7 mmol/L 3.5-5.0 2542433779) AC CA IONZ (test code = 4.30 mg/dL 4.50-5.30 L 8923291545) GLUCOSE (test code = 128 mg/dL 70-110 H 0460835292) Lab Interpretation Abnormal (test code = 22636-5) [facility]:14 Test Item Value Reference Range Interpretation Comments PH (test code = 2) 7.38 7.35-7.45 PCO2 (test code = 33 See_Comment L [Automate d message] 8077150238) The system [facility] generated this result transmit paige reference range : 35 - 45 mmHg. The reference range was not used to interpret this result as normal/abnormal . PO2 (test code = 209 See_Comment H [Automated message] 5168660882) The system [facility] generated this result transmit paige reference range : 80 - 100 mmHg. The reference range was not used to interpret this result as normal/abnormal . HCO3 (test code = 19 See_Comment L [Automate d message] 7568250309) The system [facility] generated this result transmit paige reference range : 22 - 26 mEq/L. The reference range was not used to interpret this result as normal/abnormal . BE (test code = -5.2 See_Comment L [Automated message] 1473078788) The system [facility] generated this result transmit paige reference range : -3.0 - 3.0 mEq/ L. The reference r prasanth was not used to interpret this result as normal/abnormal . THB (test code = 8.2 g/dL 12.0-16.0 LL 7129903982) %O2HB (test code = 98.3 % 94.0-99.0 2383462645) %COHB ART (test code = 0.6 % 0.0-1.5 1219590551) %METHB ART (test code = 0.5 % 0.4-1.5 4529109503) VOL%O2 ART (test code = 11.9 % 15.0-23.0 L QUES 9785296477) NA (test code = 134 mmol/L 135-145 L 2030767057) K+ (test code = 3.7 mmol/L 3.5-5.0 9205671318) AC CA IONZ (test code = 4.50 mg/dL 4.50-5.30 1908558803) GLUCOSE (test code = 137 mg/dL 70-110 H 0850491136) Lab Interpretation Abnormal (test code = 98923-3) [facility]:53:14 Test Item Value Reference Range Interpretation Comments PH (test code = 2) 7.38 7.35-7.45 PCO2 (test code = 33 See_Comment L [Automate d message] 6028545840) The system [facility] generated this result transmit paige reference range : 35 - 45 mmHg. The reference range was not used to interpret this result as normal/abnormal . PO2 (test code = 209 See_Comment H [Automated message] 7780427995) The system [facility] generated this result transmit paige reference range : 80 - 100 mmHg. The reference range was not used to interpret this result as normal/abnormal . HCO3 (test code = 19 See_Comment L [Automate d message] 9062549951) The system [facility] generated this result transmit paige reference range : 22 - 26 mEq/L. The reference range was not used to interpret this result as normal/abnormal . BE (test code = -5.2 See_Comment L [Automated message] 9208996718) The system [facility] generated this result transmit paige reference range : -3.0 - 3.0 mEq/ L. The reference r prasanth was not used to interpret this result as normal/abnormal . THB (test code = 8.2 g/dL 12.0-16.0 LL 3914476713) %O2HB (test code = 98.3 % 94.0-99.0 9249508763) %COHB ART (test code = 0.6 % 0.0-1.5 4911658899) %METHB ART (test code = 0.5 % 0.4-1.5 1336934218) VOL%O2 ART (test code = 11.9 % 15.0-23.0 L QUES 4088671450) NA (test code = 134 mmol/L 135-145 L 3294317810) K+ (test code = 3.7 mmol/L 3.5-5.0 8764436865) AC CA IONZ (test code = 4.50 mg/dL 4.50-5.30 5317652546) GLUCOSE (test code = 137 mg/dL 70-110 H 9745845743) Lab Interpretation Abnormal (test code = 75317-8) [facility]:44:26 Test Item Value Reference Range Interpretation Comments PH (test code = 2) 7.36 7.35-7.45 PCO2 (test code = 34 See_Comment L [Automate d message] 7552023436) The system [facility] generated this result transmit paige reference range : 35 - 45 mmHg. The reference range was not used to interpret this result as normal/abnormal . PO2 (test code = 153 See_Comment H [Automated message] 0730457457) The system [facility] generated this result transmit paige reference range : 80 - 100 mmHg. The reference range was not used to interpret this result as normal/abnormal . HCO3 (test code = 19 See_Comment L [Automate d message] 9126185675) The system [facility] generated this result transmit paige reference range : 22 - 26 mEq/L. The reference range was not used to interpret this result as normal/abnormal . BE (test code = -6.2 See_Comment L [Automated message] 0797902101) The system [facility] generated this result transmit paige reference range : -3.0 - 3.0 mEq/ L. The reference r prasanth was not used to interpret this result as normal/abnormal . THB (test code = 8.2 g/dL 12.0-16.0 LL 2391203291) %O2HB (test code = 98.3 % 94.0-99.0 9715309221) %COHB ART (test code = 0.3 % 0.0-1.5 0505770903) %METHB ART (test code = 0.1 % 0.4-1.5 L 3676856727) VOL%O2 ART (test code = 11.7 % 15.0-23.0 L QUES 9157407480) NA (test code = 134 mmol/L 135-145 L 0373807844) K+ (test code = 4.0 mmol/L 3.5-5.0 2375804782) AC CA IONZ (test code = 5.30 mg/dL 4.50-5.30 1045401328) GLUCOSE (test code = 142 mg/dL 70-110 H 8453783054) Lab Interpretation Abnormal (test code = 08775-7) [facility] 01:44:26 Test Item Value Reference Range Interpretation Comments PH (test code = 2) 7.36 7.35-7.45 PCO2 (test code = 34 See_Comment L [Automate d message] 5109190665) The system [facility] generated this result transmit paige reference range : 35 - 45 mmHg. The reference range was not used to interpret this result as normal/abnormal . PO2 (test code = 153 See_Comment H [Automated message] 2299303584) The system [facility] generated this result transmit paige reference range : 80 - 100 mmHg. The reference range was not used to interpret this result as normal/abnormal . HCO3 (test code = 19 See_Comment L [Automate d message] 8527076317) The system [facility] generated this result transmit paige reference range : 22 - 26 mEq/L. The reference range was not used to interpret this result as normal/abnormal . BE (test code = -6.2 See_Comment L [Automated message] 6120327461) The system [facility] generated this result transmit paige reference range : -3.0 - 3.0 mEq/ L. The reference r prasanth was not used to interpret this result as normal/abnormal . THB (test code = 8.2 g/dL 12.0-16.0 LL 0173452272) %O2HB (test code = 98.3 % 94.0-99.0 7693313334) %COHB ART (test code = 0.3 % 0.0-1.5 4045354398) %METHB ART (test code = 0.1 % 0.4-1.5 L 7176267315) VOL%O2 ART (test code = 11.7 % 15.0-23.0 L QUES 0266359758) NA (test code = 134 mmol/L 135-145 L 1908863056) K+ (test code = 4.0 mmol/L 3.5-5.0 2449943423) AC CA IONZ (test code = 5.30 mg/dL 4.50-5.30 5226002175) GLUCOSE (test code = 142 mg/dL 70-110 H 0586526438) Lab Interpretation Abnormal (test code = 60588-7) [facility] 01:43:21 Test Item Value Reference Range Interpretation Comments PH (test code = 2) 7.35 7.35-7.45 PCO2 (test code = 40 See_Comment [Automate d message] 5846877629) The system [facility] generated this result transmit paige reference range : 35 - 45 mmHg. The reference range was not used to interpret this result as normal/abnormal . PO2 (test code = 182 See_Comment H [Automated message] 7138936321) The system [facility] generated this result transmit paige reference range : 80 - 100 mmHg. The reference range was not used to interpret this result as normal/abnormal . HCO3 (test code = 22 See_Comment [Automate d message] 6718128715) The system [facility] generated this result transmit paige reference range : 22 - 26 mEq/L. The reference range was not used to interpret this result as normal/abnormal . BE (test code = -3.5 See_Comment L [Automated message] 6355846787) The system [facility] generated this result transmit paige reference range : -3.0 - 3.0 mEq/ L. The reference r prasanth was not used to interpret this result as normal/abnormal . THB (test code = 11.1 g/dL 12.0-16.0 L 0769081181) %O2HB (test code = 98.1 % 94.0-99.0 3559156130) %COHB ART (test code = 0.3 % 0.0-1.5 9896678599) %METHB ART (test code = 0.3 % 0.4-1.5 L 6669594896) VOL%O2 ART (test code = 15.7 % 15.0-23.0 QUES 7379998935) NA (test code = 137 mmol/L 135-145 9973793314) K+ (test code = 3.1 mmol/L 3.5-5.0 L 2560806543) AC CA IONZ (test code = 4.70 mg/dL 4.50-5.30 4114213497) GLUCOSE (test code = 111 mg/dL 70-110 H 1589914025) Lab Interpretation Abnormal (test code = 92082-0) [facility] 01:43:21 Test Item Value Reference Range Interpretation Comments PH (test code = 2) 7.35 7.35-7.45 PCO2 (test code = 40 See_Comment [Automate d message] 3493195073) The system [facility] generated this result transmit paige reference range : 35 - 45 mmHg. The reference range was not used to interpret this result as normal/abnormal . PO2 (test code = 182 See_Comment H [Automated message] 9843390375) The system [facility] generated this result transmit paige reference range : 80 - 100 mmHg. The reference range was not used to interpret this result as normal/abnormal . HCO3 (test code = 22 See_Comment [Automate d message] 4489464574) The system [facility] generated this result transmit paige reference range : 22 - 26 mEq/L. The reference range was not used to interpret this result as normal/abnormal . BE (test code = -3.5 See_Comment L [Automated message] 8789592508) The system [facility] generated this result transmit paige reference range : -3.0 - 3.0 mEq/ L. The reference r prasanth was not used to interpret this result as normal/abnormal . THB (test code = 11.1 g/dL 12.0-16.0 L 1419512068) %O2HB (test code = 98.1 % 94.0-99.0 2346752442) %COHB ART (test code = 0.3 % 0.0-1.5 4456845603) %METHB ART (test code = 0.3 % 0.4-1.5 L 6289105219) VOL%O2 ART (test code = 15.7 % 15.0-23.0 QUES 5633499588) NA (test code = 137 mmol/L 135-145 7078022361) K+ (test code = 3.1 mmol/L 3.5-5.0 L 9466535981) AC CA IONZ (test code = 4.70 mg/dL 4.50-5.30 0451188530) GLUCOSE (test code = 111 mg/dL 70-110 H 4028183704) Lab Interpretation Abnormal (test code = 63022-8) [facility] 1 Units 2023-01-17 22:41:13 Test Item Value Reference Range Interpretation Comments Cross Match Result Compatible (test code = 4409) ISBT Blood Type Code 6200 (test code = 190206) Unit Blood Type (test A Pos code = 4410) Unit Number (test [id number] code = 4411) Blood Expiration Date [id number] & Time (test code = 726228) Status Information Issued (test code = 4412) Product Red Blood Cells Identification (test code = 4413) Product Code (test [id number] Performed at [facility] code = 4414) Laboratory Services - [facility] Blood [address] [place] [id number] Free: [phone] A No. [id number] [facility] (in units), 1 Units 2023-01-17 22:41:13 Test Item Value Reference Range Interpretation Comments Cross Match Result Compatible (test code = 4409) ISBT Blood Type Code 6200 (test code = 418673) Unit Blood Type (test A Pos code = 4410) Unit Number (test [id number] code = 4411) Blood Expiration Date [id number] & Time (test code = 349397) Status Information Issued (test code = 4412) Product Red Blood Cells Identification (test code = 4413) Product Code (test [id number] Performed at [facility] code = 4414) Laboratory Services - [facility] Blood [address] [place] [address]Aknj Free: [phone] A No. [id number] [facility] [id number] 21:49:46 Test Item Value Reference Range Interpretation Comments WBC (test code = 6690-2) 9.66 See_Comment [A utomated message] The system [employer] generated this result transmit paige reference range : 4.30 - 11.10 10*3/?L. The reference range was not used to interpret this result as normal/abnormal . RBC (test code = 789-8) 2.55 See_Comment L [Au tomated message] The system [employer] generated this result transmit paige reference range [...] 208 See_Comment [Au tomated message] The system [employer] [facility] generated this result transmit paige reference range : 166 - 358 10*3/?L. The reference range was not used to interpret this result as normal/abnormal . MPV (test code = 10.9 fL 9.5-12.9 31855-5) RDW-CV (test code = 14.8 % 12.0-15.5 788-0) RDW-SD (test code = 48.9 fL 39.0-49.9 55679-4) NRBC x10^3 (test code = See_Comment [Au tomated message] [id number]) The system [employer] [facility] generated this result transmit paige reference range : 10*3/?L. The reference range was not used to interpret this result as normal/abnormal . NRBC/100 WBC (test code 0.0 See_Comment [Au tomated message] = [id number]) The system [facility] generated this result transmit paige reference range : 0.0 - 10.0 /100 WBC s. The reference r prasanth was not used to interpret this result as normal/abnormal . IPF % (test code = 0438491507) Lab Interpretation (test Abnormal code = 77890-5) [facility] WITHOUT [id number] 21:49:46 Test Item Value Reference Range Interpretation Comments WBC (test code = 6690-2) 9.66 See_Comment [A utomated message] The system [employer] [facility] generated this result transmit paige reference range : 4.30 - 11.10 10*3/?L. The reference range was not used to interpret this result as normal/abnormal . RBC (test code = 789-8) 2.55 See_Comment L [Au tomated message] The system [employer] generated this result transmit paige reference range [...] 208 See_Comment [Au tomated message] The system [facility] generated this result transmit paige reference range : 166 - 358 10*3/?L. The reference range was not used to interpret this result as normal/abnormal . MPV (test code = 10.9 fL 9.5-12.9 45178-0) RDW-CV (test code = 14.8 % 12.0-15.5 788-0) RDW-SD (test code = 48.9 fL 39.0-49.9 47048-6) NRBC x10^3 (test code = See_Comment [Au tomated message] [id number]) The system [employer] [facility] generated this result transmit paige reference range : 10*3/?L. The reference range was not used to interpret this result as normal/abnormal . NRBC/100 WBC (test code 0.0 See_Comment [Au tomated message] = [id number]) The system [employer] generated this result transmit paige reference range : 0.0 - 10.0 /100 WBC s. The reference r prasanth was not used to interpret this result as normal/abnormal . IPF % (test code = 3033535322) Lab Interpretation (test Abnormal code = 48778-1) [facility] BranchType and Screen - ONCE [id number] 10:54:00 Test Item Value Reference Range Interpretation Comments ABO & RH (test code = 20) A POSITIVE IAT (test code = 1185) Negative [facility] [id number] 10:54:00 Test Item Value Reference Range Interpretation Comments ABO & RH (test code = 20) A POSITIVE IAT (test code = 1185) Negative [facility], [id number] 00:00:00 Test Item Value Reference Range Interpretation Comments CULTURE, ROUTINE (test SPECIMEN NUMBER: code = 79530) [id number] CULTURE, [id number] 00:00:00 Test Item Value Reference Range Interpretation Comments CULTURE, ROUTINE (test SPECIMEN NUMBER: code = 44937) [id number] CULTURE, [id number] 00:00:00 Test Item Value Reference Range Interpretation Comments CULTURE, ROUTINE (test SPECIMEN NUMBER: code = 41597) [id number] CULTURE, [id number] 00:00:00 Test Item Value Reference Range Interpretation Comments CULTURE, ROUTINE (test SPECIMEN NUMBER: code = 33253) [id number] GC AND CHLAMYDIA AMPLIFIED, [id number] 00:00:00 Test Item Value Reference Range Interpretation Comments GONORRHEA, TMA (test code = 32181) NEGATIVE CHLAMYDIA, TMA (test code = 97939) NEGATIVE VAGINAL PATHOGENS DNA [id number] 00:00:00 Test Item Value Reference Range Interpretation Comments LORE SPECIES (test code = 03816) NEGATIVE G. VAGINALIS (test code = 31777) POSITIVE T. VAGINALIS (test code = 72491) NEGATIVE ACUTE HEPATITIS [id number] 00:00:00 Test Item Value Reference Range Interpretation Comments HEPATITIS A IgM (test code = NON-REACTIVE 88663) HEPATITIS B CORE IgM (test code NON-REACTIVE = 4644) HEPATITIS B SURF AG (test code = NON-REACTIVE 2689) HEPATITIS C ANTIBODY (test code NON-REACTIVE = 4675) INTERPRETATION HEPATITIS A: (NOTE) (test code = 2552) INTERPRETATION HEPATITIS B: (NOTE) (test code = 98097) INTERPRETATION HEPATITIS C: (NOTE) (test code = 26729) PAP TEST, THINPREP, [id number] 00:00:00 Test Item Value Reference Range Interpretation Comments SOURCE: (test code = Cervical/Endocervical 8001) SLIDES: (test code = 1 8011) LMP: (test code = 8021) 05/18/2021 SPECIMEN ADEQUACY: (test (NOTE) code = 88712) INTERPRETATION: (test NILM/NO EPITH. code = 04658) ABNORMALITY;SEE BELOW OTHER COMMENTS: (test (NOTE) code = 8081) FOOD SCIENCE TECHNICIAN: (test Jeanna code = 8101) BRIANNE Suresh(ASCP) LOCATION: (test code = (NOTE) 50636) CPT: (test code = 8140) (NOTE) HPV HIGH RISK WITH GENOTYPE, [id number] 00:00:00 Test Item Value Reference Range Interpretation Comments HPV HIGH RISK INTERP (test code = NEGATIVE 83955) HPV 16 (test code = 74029) NEGATIVE HPV 18 (test code = 34829) NEGATIVE HPV, HR, OTHER GENOTYPES (test code NEGATIVE = 50820) VAGINAL PATHOGENS DNA [id number] 00:00:00 Test Item Value Reference Range Interpretation Comments LORE SPECIES (test code = ) NEGATIVE G. VAGINALIS (test code = ) POSITIVE T. VAGINALIS (test code = ) NEGATIVE GC AND CHLAMYDIA AMPLIFIED, [id number] 00:00:00 Test Item Value Reference Range Interpretation Comments GONORRHEA, TMA (test code = 44005) NEGATIVE CHLAMYDIA, TMA (test code = 98889) NEGATIVE PAP TEST, THINPREP, [id number] 00:00:00 Test Item Value Reference Range Interpretation Comments SOURCE: (test code = Cervical/Endocervical 800) SLIDES: (test code = 1 8011) LMP: (test code = 8021) 05/18/2021 SPECIMEN ADEQUACY: (test (NOTE) code = 55192) INTERPRETATION: (test NILM/NO EPITH. code = 90635) ABNORMALITY;SEE BELOW OTHER COMMENTS: (test (NOTE) code = 8081) FOOD SCIENCE TECHNICIAN: (test Jeanna code = 8101) BRIANNE Suresh(ASCP) LOCATION: (test code = (NOTE) 43994) CPT: (test code = 8140) (NOTE) ACUTE HEPATITIS [id number] 00:00:00 Test Item Value Reference Range Interpretation Comments HEPATITIS A IgM (test code = NON-REACTIVE 45761) HEPATITIS B CORE IgM (test code NON-REACTIVE = 0544) HEPATITIS B SURF AG (test code = NON-REACTIVE 0279) HEPATITIS C ANTIBODY (test code NON-REACTIVE = 2075) INTERPRETATION HEPATITIS A: (NOTE) (test code = 2552) INTERPRETATION HEPATITIS B: (NOTE) (test code = 87070) INTERPRETATION HEPATITIS C: (NOTE) (test code = 18879) HPV HIGH RISK WITH GENOTYPE, [id number] 00:00:00 Test Item Value Reference Range Interpretation Comments HPV HIGH RISK INTERP (test code = NEGATIVE 98969) HPV 16 (test code = 23091) NEGATIVE HPV 18 (test code = 05492) NEGATIVE HPV, HR, OTHER GENOTYPES (test code NEGATIVE = 86980) COMPREHENSIVE METABOLIC [id number] 00:00:00 Test Item Value Reference Range Interpretation Comments GLUCOSE (test code = 2217) 84 MG/DL BUN (test code = 2208) 18 MG/DL CREATININE (test code = 2214) 0.94 MG/DL eGFR AMER. (test code 83 ML/MIN/1.73 = 25168) eGFR NON- AMER. (test 72 ML/MIN/1.73 code = 12043) CALC BUN/CREAT (test code = 19 RATIO [...] (test code = 2219) 10 U/L LIPID [id number] 00:00:00 Test Item Value Reference Range Interpretation Comments CHOLESTEROL (test code = 2210) 157 MG/DL TRIGLYCERIDES (test code = 2232) 135 MG/DL HDL CHOLESTEROL (test code = 2220) 40 MG/DL CALC LDL CHOL (test code = 2237) 94 MG/DL RISK RATIO LDL/HDL (test code = 2.35 RATIO 2238) COMPREHENSIVE METABOLIC [id number] 00:00:00 Test Item Value Reference Range Interpretation Comments GLUCOSE (test code = 2217) 84 MG/DL BUN (test code = 2208) 18 MG/DL CREATININE (test code = 2214) 0.94 MG/DL eGFR AMER. (test code 83 ML/MIN/1.73 = 09814) eGFR NON- AMER. (test 72 ML/MIN/1.73 code = 29738) CALC BUN/CREAT (test code = 19 RATIO [...] ALKALINE PHOSPHATASE (test 66 U/L code = 220) AST (test code = 2218) 19 U/L ALT (test code = 2219) 10 U/L LIPID [id number] 00:00:00 Test Item Value Reference Range Interpretation Comments CHOLESTEROL (test code = 2210) 157 MG/DL TRIGLYCERIDES (test code = 2232) 135 MG/DL HDL CHOLESTEROL (test code = 2220) 40 MG/DL CALC LDL CHOL (test code = 223) 94 MG/DL RISK RATIO LDL/HDL (test code = 2.35 RATIO 2238) COMPREHENSIVE METABOLIC [id number] 00:00:00 Test Item Value Reference Range Interpretation Comments GLUCOSE (test code = 7) 93 MG/DL BUN (test code = 8) 12 MG/DL CREATININE (test code = 2214) 0.81 MG/DL eGFR AMER. (test code 102 ML/MIN/1.73 = 90070) eGFR NON- AMER. (test 88 ML/MIN/1.73 code = 15436) CALC BUN/CREAT (test code = 15 RATIO [...] ALT (test code = 2219) 14 U/L [id number] 00:00:00 Test Item Value Reference Range Interpretation Comments AMYLASE (test code = 2205) 32 U/L [id number] 00:00:00 Test Item Value Reference Range Interpretation Comments LIPASE (test code = 2057) 37 U/L [id number] 00:00:00 Test Item Value Reference Range Interpretation Comments LIPASE (test code = 2057) 37 U/L COMPREHENSIVE METABOLIC [id number] 00:00:00 Test Item Value Reference Range Interpretation Comments GLUCOSE (test code = 2217) 93 MG/DL BUN (test code = 2208) 12 MG/DL CREATININE (test code = 2214) 0.81 MG/DL eGFR AMER. (test code 102 ML/MIN/1.73 = 67189) eGFR NON- AMER. (test 88 ML/MIN/1.73 code = 16415) CALC BUN/CREAT (test code = 15 RATIO [...] ALT (test code = 2219) 14 U/L [id number] 00:00:00 Test Item Value Reference Range Interpretation Comments AMYLASE (test code = 2205) 32 U/L [id number] 00:00:00 Test Item Value Reference Range Interpretation Comments LIPASE (test code = 2057) 37 U/L [id number] 00:00:00 Test Item Value Reference Range Interpretation Comments LIPASE (test code = 2058) 37 U/L CBC W/AUTO [id number] 00:00:00 Test Item Value Reference Range Interpretation [...] code = 1015) 327 K/UL CBC W/AUTO [id number] 00:00:00 Test Item Value Reference Range Interpretation [...] code = 1015) 327 K/UL CBC W/AUTO [id number] 00:00:00 Test Item Value Reference Range Interpretation [...] code = 1015) 327 K/UL CBC W/AUTO [id number] 00:00:00 Test Item Value Reference Range Interpretation [...]
[2023-01-26] MEDS ORDERED: KETOROLAC 30 MG/ML INJ ONE (23:18)
[2023-01-26] MEDS ORDERED: DIAZEPAM 5 MG TABLET ONE (23:18)
[2023-01-26] MEDS ORDERED: MORPHINE 4 MG/ML SYR ONE (23:44)
[2023-01-27] MEDS ORDERED: PROMETHAZINE 25 MG TABLET ONE (00:35)
[2023-01-27] MEDS ORDERED: methocarbamoL 750 MG TAB ONE (00:35)
[2023-01-27] MEDS ORDERED: HYDROCODONE/APAP 10/325 TAB ONE (00:36)
[2023-01-27 01:05] LABS: Absolute Lymphocytes (CBC) 1.4 K/uL (0.7-4.9); Lymphocytes % 13.1 % (15.3-44.8); MCV 88.8 fL (80-100); MPV 7.8 fL (7.6-11.3); RBC Red Blood Cell Count 3.04 M/uL (3.86-4.86)
[2023-01-27 01:08] LABS: Protime INR 1.24
--- NOTE | 2023-01-27 01:16 | ER ---
Nurse's Notes [facility] Name: Jennifer Victor Age: 52 yrs Sex: Female : 1970 Arrival Date: 01/26/2023 Time: 22:31 Bed 5 Private MD: Diagnosis: Low back pain;Status post lumbar fusion T9-S1 , intractable postoperative spinal pain, pain associated with spinal hardware. Status post PSIF [id number], TLIF L4-S1. Ricardo osteotomies T1 - L3. Presentation: 01/26 22:49 Chief complaint: Patient states: I had 3 rods placed in my spine on the 12 in [place] [address] Vides. I spent a little time at that hospital and then they transferred me here for rehab. The 5th floor just discharged me because they have done all they can for me but i am still in excruciating pain. Coronavirus screen: Vaccine status: Patient reports being unvaccinated. Ebola Screen: No symptoms or risks identified at this time. Initial Sepsis Screen: Does the patient meet any 2 criteria? No. Patient's initial sepsis screen is negative. Does the patient have a suspected source of infection? No. Patient's initial sepsis screen is negative. Risk Assessment: Do you want to hurt yourself or someone else? Patient reports no desire to harm self or others. Onset of symptoms was January 26, 2023. 22:49 Method Of Arrival: Wheelchair 3 22:49 Acuity: YAMINI 3 kd3 Triage Assessment: 23:14 General: Appears uncomfortable, Behavior is calm, cooperative. Musculoskeletal: rv Circulation, motion, and sensation intact. Historical: - Allergies: 22:51 No Known Allergies; kd3 - PMHx: 22:51 Anxiety; depressive disorder; scoliosis; kd3 - Immunization history:: Adult Immunizations up to date. - Social history:: Smoking status: Patient denies any tobacco usage or history of. - Family history:: not pertinent. Screenin:13 [facility] ED Fall Risk Assessment (Adult) History of falling in the last 3 months, rv including since admission No falls in past 3 months (0 pts) Confusion or Disorientation No (0 pts) Intoxicated or Sedated No (0 pts) Impaired Gait No (0 pts) Mobility Assist Device Used No (0 pt) Altered Elimination No (0 pt) Score/Fall Risk Level 0 - 2 = Low Risk Oriented to surroundings, Maintained a safe environment, Educated pt \T\ family on fall prevention, incl call for assistance when getting out of bed, Assessed \T\ reinforced patient's understanding of fall precautions, Provided non-skid footwear, Hourly rounding (assess needs \T\ fall precautionary measures) done, Used ambulatory aids as needed (educated on \T\ assisted with), Used gait belt as appropriate. Abuse screen: Denies threats or abuse. Denies injuries from another. Nutritional screening: No deficits noted. Tuberculosis screening: No symptoms or risk factors identified. Assessment: 23:13 Pain: Complains of pain in back. Neuro: Level of Consciousness is awake, alert, obeys rv commands, Oriented to person, place, time, situation. Cardiovascular: Capillary refill < 3 seconds. Respiratory: Airway is patent Respiratory effort is even, unlabored. GI: No signs and/or symptoms were reported involving the gastrointestinal system. : No signs and/or symptoms were reported regarding the genitourinary system. 01/27 00:55 Reassessment: NORCO AND PHENERGAN HELD DUE TP LOW BP. PT STATES SHE IS COMFORTABLE AT j THE MOMENT. WILL CONTINUE TO MONITOR. 02:01 Reassessment: PT LEFT ER WITH EMS. j7 Vital Signs: 01/26 22:49 Weight 74.84 kg; Height 5 ft. 0 in. ; Pain 10/10; kd3 22:53 Pulse 105; Resp 22; Temp 98.2(O); Pulse Ox 100% on R/A; kd3 22:53 BP 114 / 67; kd3 01/27 00:54 BP 97 / 62; Pulse 88; Resp 14; Pulse Ox 94% ; jj7 01/26 22:49 Body Mass Index 32.22 (74.84 kg, 152.4 cm) kd3 01/26 22:49 Pain Scale: Adult kd3 ED Course: 01/26 22:32 Patient arrived in ED. ag3 22:51 Triage completed. kd3 22:51 Arm band placed on. kd3 22:54 Kole Vasquez RN is Primary Nurse. jj7 22:57 Levi Bray MD is Attending Physician. sp4 23:14 Patient has correct armband on for positive identification. Client placed on continuous rv cardiac and pulse oximetry monitoring. NIBP monitoring applied. 23:14 No provider procedures requiring assistance completed. rv 23:41 Chest Single View XRAY In Process Unspecified. EDMS 23:41 Abdomen 1 View XRAY In Process Unspecified. EDMS 23:41 Pelvis XRAY In Process Unspecified. EDMS 01/27 00:55 Basic Metabolic Panel Sent. rv 00:55 CBC with Diff Sent. rv 00:55 LFT's Sent. rv 00:55 NT PRO-BNP Sent. rv 00:55 PT-INR Sent. rv 00:55 Troponin HS Sent. rv Administered Medications: 01/26 23:13 Drug: Ketorolac IM 60 mg Route: IM; Site: right deltoid; rv 23:39 Follow up: Response: No adverse reaction; Pain is unchanged, physician notified rv 23:13 Drug: Diazepam PO 5 mg Route: PO; rv 23:39 Follow up: Response: No adverse reaction; Pain is unchanged, physician notified rv 23:39 Drug: morphine IM 8 mg Route: IM; Site: left deltoid; rv 01/27 00:54 Drug: Methocarbamol PO 1500 mg Route: PO; jj7 01:47 Not Given (Patient Refused): NS 0.9% IV 500 ml IV at bolus continuous sp4 01:54 Drug: D5-1/2 NS with KCl IV 20 mEq/L 1000 ml Route: IV; Rate: 125 ml/hr; Site: right jj7 antecubital; 01:59 Follow up: IV Status: Infusion continued upon transfer jj7 Medication: 01/26 23:14 VIS not applicable for this client. rv Outcome: 01/27 01:16 ER care complete, transfer ordered by . sp4 02:11 Patient left the ED. as6 Signatures: Dispatcher [employer] EDMS Kayden Sheppard RN RN rv Samantha Escobedo ag3 Saw Barnett RN RN as6 Adriane Fallon RN RN kd3 Kole Vasquez RN RN jj7 Levi Bray MD MD sp4
--- NOTE | 2023-01-27 01:17 | EDPHYS ---
Physician Documentation [facility] Name: Jennifer Victor Age: 52 yrs Sex: Female : 1970 Arrival Date: 01/26/2023 Time: 22:31 Bed 5 Private MD: ED Physician Levi Bray HPI: 01/26 22:57 This 52 yrs old Female presents to ER via Wheelchair with complaints of Back sp4 Pain, Post Surgical Pain. 23:06 Worsening spinal pain after scoliosis surgery via Hollingsworth rods on 01/17/2023. sp4 01/27 01:03 Patient is 52-year-old female who has had PSIF T9 pelvis TLIF L4-S1, osteotomy T11 L3 sp4 on 01/17/2023. This was done at [facility] in [place]. Orthopedic surgeon Dr. Peewee Wang . Patient was discharged from [place] yesterday and sent to outpatient rehabilitation here at [facility] on the fifth floor to be managed for pain and to undergo rehabilitation with Dr. Fitzpatrick.. Patient apparently could not tolerate pain and p.o. medications and the rehab floor were insufficient. Patient requested discharge from the rehabilitation floor and checked into the emergency room for pain control. Patient states pain is severe and pain medications p.o. and not handling the pain.. Patient denied any paralysis or weakness in the lower extremities. . Historical: - Allergies: 01/26 22:51 No Known Allergies; kd3 - PMHx: 22:51 Anxiety; depressive disorder; scoliosis; kd3 - Immunization history:: Adult Immunizations up to date. - Social history:: Smoking status: Patient denies any tobacco usage or history of. - Family history:: not pertinent. ROS: 01/27 01:03 Constitutional: Negative for fever, chills, and weight loss, Eyes: Negative for injury, sp4 pain, redness, and discharge, ENT: Negative for injury, pain, and discharge, Neck: Negative for injury, pain, and swelling, Cardiovascular: Negative for chest pain, palpitations, and edema, Respiratory: Negative for shortness of breath, cough, wheezing, and pleuritic chest pain, Abdomen/GI: Negative for abdominal pain, nausea, vomiting, diarrhea, and constipation, Back: There is positive for back pain, recent postoperative pain that is worsening in thoracic and lumbar pain : Negative for injury, bleeding, discharge, and swelling, MS/Extremity: Negative for injury and deformity, Skin: Negative for injury, rash, and discoloration, Neuro: Negative for headache, weakness, numbness, tingling, and seizure, Psych: Negative for depression, anxiety, Allergy/Immunology: Negative for hives, rash, and allergies Endocrine: Negative for neck swelling, polydipsia, polyuria, polyphagia, and weight changes Hematologic/Lymphatic: Negative for swollen nodes, abnormal bleeding, and unusual bruising Exam: 01:03 Constitutional: This is a well developed, well nourished patient who is awake, alert, sp4 and in no acute distress. Head/Face: Normocephalic, atraumatic. Eyes: Pupils equal round and reactive to light, extra-ocular motions intact. Lids and lashes normal. Conjunctiva and sclera are not injected. Cornea within normal limits. Periorbital areas with no swelling, redness, or edema. ENT: Nares patent. No nasal discharge, no septal abnormalities noted. Tympanic membranes are normal and external auditory canals are clear. Oropharynx with no redness, swelling, or masses, exudates, or evidence of obstruction, uvula midline. Mucous membranes moist. Neck: Trachea midline, no thyromegaly or masses palpated, and no cervical lymphadenopathy. Supple, full range of motion without nuchal rigidity, or vertebral point tenderness. Chest/axilla: Normal chest wall appearance and motion. Nontender with no deformity. No lesions are appreciated. Cardiovascular: Regular rate and rhythm with a normal S1 and S2. No gallops, murmurs, or rubs. Normal PMI, no JVD. No pulse deficits. Respiratory: Lungs have equal breath sounds bilaterally, clear to auscultation and percussion. No rales, rhonchi or wheezes noted. No increased work of breathing, no retractions or nasal flaring. Abdomen/GI: Soft, non-tender, with normal bowel sounds. No distension or tympany. No guarding or rebound. No evidence of tenderness throughout. Back: Midline postoperative spinal incision spanning from lower thoracic section all the way into pelvic region. Incision clean dry and intact. Skin: Warm, dry with normal turgor. Normal color with no rashes, no lesions, and no evidence of cellulitis. MS/ Extremity: Pulses equal, no cyanosis. Neurovascular intact. Full, normal range of motion. Neuro: Awake and alert, GCS 15, oriented to person, place, time, and situation. Cranial nerves II-XII grossly intact. Motor strength 5/5 in all extremities. Sensory grossly intact. Patient ambulatory without assistance, no sign of lower extremity paralysis Psych: Awake, alert, with orientation to person, place and time. Behavior, mood, and affect are within normal limits Vital Signs: 01/26 22:49 Weight 74.84 kg; Height 5 ft. 0 in. ; Pain 10/10; kd3 22:53 Pulse 105; Resp 22; Temp 98.2(O); Pulse Ox 100% on R/A; kd3 22:53 BP 114 / 67; kd3 01/27 00:54 BP 97 / 62; Pulse 88; Resp 14; Pulse Ox 94% ; jj7 01/26 22:49 Body Mass Index 32.22 (74.84 kg, 152.4 cm) kd3 01/26 22:49 Pain Scale: Adult kd3 MDM: 01/26 22:58 Patient medically screened. sp4 01/27 00:59 ED course: EXAM DESCRIPTION: Abdomen Single View CLINICAL HISTORY: 52 years Female, sp4 spinal hollingsworth rods TECHNIQUE: 1 view COMPARISON: None. FINDINGS: LINES AND TUBES: None. BOWEL GAS PATTERN: Loops of bowel are not dilated. No anomalous air-fluid levels are seen. FREE AIR: Not assessed on a single supine view. CALCIFICATIONS: No unusual abdominal calcifications. BONES: Status post thoracolumbar sacral iliac fusion. Anterior interbody fusion lower lumbar spine. Near midline surgical clips. Moderate dextroconvex scoliosis thoracolumbar spine. Osseous structures are grossly intact. IMPRESSION: 1. Status post thoracolumbar sacral iliac fusion with intact appearing hardware. 2. Nonspecific bowel gas pattern.. ED course: X-ray pelvis revealed postsurgical changes in the lumbar spine partially visualized with bilateral iliac structures present. No acute fracture no dislocation.. 01:03 Differential diagnosis: Fatigue Fracture Osteoarthritis ruptured disc, Scoliosis. Data sp4 reviewed: vital signs, nurses notes, old medical records, radiologic studies, plain films. Consideration of Admission/Observation Patient was admitted/placed on observation. Escalation of care including admission/observation considered. Management of patient was discussed with the following: Hospitalist: Dr. White with [facility]. . ED course: Patient's x-ray revealed intact spinal hardware. EXAM DESCRIPTION: Abdomen Single View CLINICAL HISTORY: 52 years Female, spinal hollingsworth rods TECHNIQUE: 1 view COMPARISON: None. FINDINGS: LINES AND TUBES: None. BOWEL GAS PATTERN: Loops of bowel are not dilated. No anomalous air-fluid levels are seen. FREE AIR: Not assessed on a single supine view. CALCIFICATIONS: No unusual abdominal calcifications. BONES: Status post thoracolumbar sacral iliac fusion. Anterior interbody fusion lower lumbar spine. Near midline surgical clips. Moderate dextroconvex scoliosis thoracolumbar spine. Osseous structures are grossly intact. IMPRESSION: 1. Status post thoracolumbar sacral iliac fusion with intact appearing hardware. 2. Nonspecific bowel gas pattern.. ED course: Patient was discussed with Dr. Fitzpatrick who is neurology rehab attending on the fifth floor who states that patient's pain cannot be controlled at the rehab secondary to the fact that patient requires ever-increasing doses of pain medication. At this time patient cannot be readmitted back into the rehab. Patient was discussed with orthopedic service at [facility] who accepted patient for transfer to the ER for evaluation. . 01/27 00:42 Order name: Basic Metabolic Panel; Complete Time: sp4 01/27 00:42 Order name: CBC with Diff; Complete Time: sp4 01/27 00:42 Order name: LFT's; Complete Time: sp4 01/27 00:42 Order name: NT PRO-BNP; Complete Time: sp4 01/27 00:42 Order name: PT-INR; Complete Time: sp4 01/27 00:42 Order name: Troponin HS; Complete Time: : sp4 01/26 23:06 Order name: Chest Single View XRAY sp4 01/26 23:06 Order name: Abdomen 1 View XRAY sp4 01/26 23:06 Order name: Pelvis XRAY 4 01/27 00:42 Order name: IV Saline Lock; Complete Time: 00:55 sp4 01/27 00:42 Order name: Labs collected and sent; Complete Time: 00:55 sp4 01/27 00:42 Order name: O2 Per Protocol; Complete Time: 00:55 sp4 01/27 00:42 Order name: O2 Sat Monitoring; Complete Time: 00:55 sp4 Administered Medications: 01/26 23:13 Drug: Ketorolac IM 60 mg Route: IM; Site: right deltoid; rv 23:39 Follow up: Response: No adverse reaction; Pain is unchanged, physician notified rv 23:13 Drug: Diazepam PO 5 mg Route: PO; rv 23:39 Follow up: Response: No adverse reaction; Pain is unchanged, physician notified rv 23:39 Drug: morphine IM 8 mg Route: IM; Site: left deltoid; rv 01/27 00:54 Drug: Methocarbamol PO 1500 mg Route: PO; jj7 01:47 Not Given (Patient Refused): NS 0.9% IV 500 ml IV at bolus continuous sp4 01:54 Drug: D5-1/2 NS with KCl IV 20 mEq/L 1000 ml Route: IV; Rate: 125 ml/hr; Site: right jj7 antecubital; 01:59 Follow up: IV Status: Infusion continued upon transfer j7 Disposition Summary: 01/27/23 01:16 Transfer Ordered Transfer Location: [facility]-System sp4 Reason: Higher level of care sp4 Condition: Stable sp4 Problem: new sp4 Symptoms: have improved sp4 Accepting Physician: Christopher MEJIA with [facility](01/27/23 02:11) as6 Diagnosis - Low back pain sp4 - Status post lumbar fusion T9-S1 , intractable postoperative spinal pain, pain sp4 associated with spinal hardware. Status post PSIF [id number], TLIF L4-S1. Ricardo osteotomies T1 - L3. Forms: - Medication Reconciliation Form sp4 - SBAR form sp4 Signatures: Dispatcher [employer] Kayden Zamora RN RN Saw Land RN RN as6 Adriane Fallon RN RN kd3 Kole Vasquez RN RN jj7 Levi Bray MD MD sp4 Corrections: (The following items were deleted from the chart) 02:11 01:16 Christopher MEJIA with [facility] sp4 as6
[2023-01-27 01:24] LABS: ALT/SGPT 54 U/L (13-56); AST/SGOT 52 U/L (15-37); Albumin 2.6 g/dL (3.4-5.0); Alkaline Phosphatase 74 U/L (45-117); BUN Blood Urea Nitrogen 11 mg/dL (7-18); Bicarbonate 29 mEq/L (21-32); Bilirubin Total 0.3 mg/dL (0.2-1.0); Glomerular Filtration Rate 108 ml/min (=/>90); Glucose Level 113 mg/dL (74-106); NT PRO-BNP 227 pg/mL (<125); Potassium 3.5 mEq/L (3.5-5.1); Protein, Total 6.6 g/dL (6.4-8.2); Sodium Level 135 mEq/L (136-145); Troponin High Sensitivity 3.1 pg/mL (<58.9)
[2023-01-27 01:44] LABS: Bilirubin Direct < 0.1 mg/dL (0-0.2); Bilirubin Indirect, Calculated ND mg/dL (0.2-0.8)
[2023-01-27] MEDS ORDERED: D5.45NS W/KCL 20MEQ 1,000 ML IV ONE (01:56)
[2023-01-27 02:17] VITALS: TEMP 98.2
[2023-01-27 02:19] VITALS: BP 97/62; O2SAT 94
--- NOTE | 2023-01-27 12:04 | RAD REPORT ---
EXAM DESCRIPTION: RAD - Pelvis - 01/26/2023 11:39 pm CLINICAL HISTORY: The patient is 52 years old and is Female; spinal johnson rods TECHNIQUE: Frontal view of the pelvis. COMPARISON: No relevant prior studies available. FINDINGS: BONES/JOINTS: Postsurgical change of the lumbar spine is partially visualized with bilat eral iliac structures present. The femoral heads are located. The SI joints and pubic symphysis are intact without evidence of diastases. No acute fracture. No dislocation. SOFT TISSUES: Unremarkable. IMPRESSION: No acute findings in the pelvis. Electronically signed by: Ifeoma Licona MD 01/26/2023 11:56 PM CDT Due to temporary technical issues with the PACS/Fluency reporting system, reports are being signed by the in house radiologists without review as a courtesy to insure prompt reporting. The interpreting radiologist is fully responsible for the content of the report.
--- NOTE | 2023-01-27 12:06 | RAD REPORT ---
EXAM DESCRIPTION: RAD - Abdomen Single View - 01/26/2023 11:39 pm CLINICAL HISTORY: 52 years Female, spinal johnson rods TECHNIQUE: 1 view COMPARISON: None. FINDINGS: LINES AND TUBES: None. BOWEL GAS PATTERN: Loops of bowel are not dilated. No anomalous air-fluid levels are seen. FREE AIR: Not assessed on a single supine view. CALCIFICATIONS: No unusual abdominal calcifications. BONES: Status post thoracolumbar sacral iliac fusion. Anterior interbody fusion lower lumbar spine. N ear midline surgical clips. Moderate dextroconvex scoliosis thoracolumbar spine. Osseous structures a re grossly intact. IMPRESSION: 1. Status post thoracolumbar sacral iliac fusion with intact appearing hardware. 2. Nonspecific bowel gas pattern. Electronically signed by: Asad Davis MD 01/26/2023 11:57 PM CDT Due to temporary technical issues with the PACS/Fluency reporting system, reports are being signed by the in house radiologists without review as a courtesy to insure prompt reporting. The interpreting radiologist is fully responsible for the content of the report.
--- NOTE | 2023-01-27 14:00 | RAD REPORT ---
EXAM DESCRIPTION: RAD - Chest Single View - 01/26/2023 11:39 pm CLINICAL HISTORY: Spinal johnson rods TECHNIQUE: AP chest COMPARISON: None available for comparison FINDINGS: CHEST: Cardiac silhouette at the upper limits of normal. Prominent thoracolumbar S-shaped scoliosis. Status post lower thoracic and lumbar fusion. Fusion rods are partially visualized. Surgical sutures along midline. Airspace disease in the retrocardiac left lower lobe which may represent atelectasis. IMPRESSION: 1. Prominent thoracolumbar S-shaped scoliosis. 2. Airspace disease in the retrocardiac left lower lobe which may represent atelectasis. 3. Status post lower thoracic and lumbar fusion. Electronically signed by: Cam Santiago MD 01/26/2023 11:54 PM CDT Due to temporary technical issues with the PACS/Fluency reporting system, reports are being signed by the in house radiologists without review as a courtesy to insure prompt reporting. The interpreting radiologist is fully responsible for the content of the report.
== END 2023-01-27 02:11 | disposition short-term general hospital (02) ==
LOC: ER 22:31
DX: G89.18 Other acute postprocedural pain (principal); T84.84XA Pain due to internal orthopedic prosthetic devices, implants and grafts, initial encounter; Z98.1 Arthrodesis status
CPT/HCPCS: 36415; 71045; 72170; 74018; 80048; 80076; 83880; 84484; 85025; 85610; 96372; 99284; Q0169

== ENCOUNTER 2023-01-30 08:53 | Inpatient (IN) | payer OTHER ==
--- OUTSIDE RECORDS SUMMARY | 2023-01-30 18:31 | XMS REPORT | Continuity of Care Document ---
:1970 Author Organization [facility] t Address [address] [place] [address] Care Team Providers Name Role Phone Star Kellogg Primary Care Physician [phone] FELIPE HERZOG Attending Clinician Unavailable Yg White MD Attending Clinician Felipe Herzog MD Attending Clinician Estephania Joens RN Attending Clinician Unavailable WEN CAPELLAN Attending Clinician Unavailable Doctor Unassigned, [place] Attending Clinician Unavailable NADEEM SALMERON Attending Clinician Unavailable Georgina Molina PT Attending Clinician Unavailable Nadeem Salmeron MD Attending Clinician Lab, c Attending Clinician Unavailable Calvin Bueno MD Attending Clinician COLLEEN SABA Attending Clinician Unavailable Celena Ng DO Attending Clinician NATE CRUZ Attending Clinician Unavailable CECELIA MOODY Attending Clinician Unavailable CEECLIA MOODY Attending Clinician Unavailable RADIOLOGY Attending Clinician Unavailable Test, Vtc Pulmonary Function Attending Clinician Unavailable Unknown, Attending Attending Clinician Unavailable UNKNOWN, ATTENDING Attending Clinician Unavailable Only, Adc Test Attending Clinician Unavailable Lena Quinones MD Attending Clinician LENA QUINONES Attending Clinician Unavailable Bettie Pang Attending Clinician Unavailable Testing, [facility] Pulmonary Function Attending Clinician Unavaila ble Fellow, Pulmonary Attending Clinician Unavailable Sun Mack MD Attending Clinician [phone] SUN MACK Attending Clinician Unavailable PAGE CAPELLAN Attending Clinician Unavailable Junior Thayer Attending Clinician JUNIOR LARKIN Attending Clinician Unavailable Sheila_Leo Attending Clinician Unavailable FELIPE HERZOG Admitting Clinician Unavailable Felipe Herzog MD Admitting Clinician [facility] Admitting Clinician Unavailable Payers Payer Name Policy Type Policy Number Effective Date Expiration Date S ource MEDICARE PART A \\T\\ [id number] 2021 B 00:00:00 DARS DISABILITY [id number] 2014 DETERMINATION SVCS 00:00:00 Problems Condition Condition [...] I 3-17 ity of disorder disorder 00:00: [place] with with 00 Medical depression depression Br [...] 2-13 it y of single single 00:00: [place] episode, episode, 00 Medica l in partial in partial Br anch remission remission No known No known Disease Unive rs active active ity of problems problems [facility] Allergies, Adverse Reactions, Alerts Allergy Allergy Status [...] History SDOH Social Unive rsity of Connections [facility] [place] [facility] History SDOH Social Unive [...] o f Housing Unable to 00:00:00 00:00:00 [place] M edical Pay Branch History SDAL 2023-01-18 2023-01-18 1 University o f Housing Places 00:00:00 00:00:00 [facility] xiomy Lived Branch History SDAL 2023-01-18 2023-01-18 2 University o f Housing Homeless 00:00:00 00:00:00 [facility] dical Last Year Branch Exposure to 2022-10-15 2022-10-25 Not sure [facility] SARS-CoV-2 (event) 00:00:00 11:09:00 [facility] Tobacco use and 2022-02-23 2022-02-23 Smokeless Universit y of exposure 00:00:00 00:00:00 tobacco non-user [facility] Sex Assigned At [birth year] Universit y of 00:00:00 00:00:00 [facility] Smoking Status Start Date Stop Date Source Ex-smoker 2022-02-23 00:00:00 2022-02-23 00:00:00 Universi ty [facility] Medications Ordered Filled Start Stop Current Ordering Indication Dosage Frequency Signature Comments Components Source Medication Medication Date Date Medication? Clinician (SIG) Name Name ferrous Yes 325mg 325 mg, Univer s sulfate 01-28 Oral, Q ity of tablet 325 18:30: [place], [place] 00 First dose Medical (after Branch last modificati on) on Tue01/28/23 at 1330, Until Discontinu ed, Routine acetaminoph Yes 500mg 500 mg, Un mercedes en 01-28 Oral, Q8H, ity of (TYLENOL) 03:00: [place] tablet 500 00 on [place] Medical mg 01/27/23 at Branch 2200, Until Discontinu ed, Routine gabapentin Yes 800mg 800 mg, Uni vers (NEURONTIN) - Oral, QHS, it y of tablet 800 02:00: First dose [place] mg 00 (after Medical last Branch modificati on) on [place] 01/27/23 at 2100, Until Discontinu ed, Routine cyclobenzap 2023-0 Yes 10mg 10 mg, Univ ers rine 01-27 Oral, Q8H, ity of (FLEXERIL) 19:00: First dose [place] tablet 10 00 (after Medical mg last Branch modificati on) on Tue01/27/23 at 1400, Until Discontinu ed, Routine simethicone 3-0 Yes 80mg 80 mg, Univ ers (GAS RELIEF 01-27 Oral, ity of (SIMETHICON 14:00: PC+HS, [place] E)) 00 First dose Medical chewable (after Branch tablet 80 last mg modificati on) on Tue01/27/23 at 0900, Until Discontinu ed, Routine SERTraline 3-0 Yes 50mg 50 mg, Unive rs (ZOLOFT) 01-27 Oral, ity of tablet 50 14:00: DAILY, [place] mg 00 First dose Medical (after Branch last modificati on) on Tue01/27/23 at 0900, Until Discontinu ed, Routine sennosides- 2022-0 Yes 1{tbl} 1 tablet, Univers docusate 01-27 Oral, ity of sodium 14:00: DAILY, [place] (SENOKOT-S) 00 First dose Me dical 8.6-50 mg (after Branch per tablet last 1 tablet modificati on) on Tue01/27/23 at 0900, Until Discontinu ed, Routine polyethylen 3-0 Yes 17g 17 g, Unive rs e glycol 01-27 Oral, ity of 3350 powder 14:00: DAILY, [place] 17 g 00 First dose Medical (after Branch last modificati on) on Tue01/27/23 at 0900, Until Discontinu ed, Routine magnesium 3-0 Yes 15mL 15 mL, Univer s hydroxide 01-27 Oral, ity of (MILK OF 14:00: DAILY, [place] MAGNESIA) 00 First dose Medi xiomy 400 mg/5 mL (after Branch suspension last 15 mL modificati on) on Tue01/27/23 at 0900, Until Discontinu ed, Routine oxyCODONE 3-0 Yes 10mg 10 mg, Univer s CR 01-27 Oral, ity of (oxyCONTIN 13:00: Q12H, [place] CR) 12 hr 00 First dose Medi xiomy tablet 10 (after Branch mg last modificati on) on Tue01/27/23 at 0800, Until Discontinu ed, Routine
architecture faculty member approving Restricted medication : FELIPE GRECO gabapentin 0 Yes 400mg 400 mg, Uni vers (NEURONTIN) 01-27 Oral, ity of capsule 400 12:30: BIDAC, [place] 00 First dose Medical (after Branch last modificati on) on Tue01/27/23 at 0730, Until Discontinu ed, Routine oxyCODONE-a Yes 1{tbl} 1 tablet, Univers cetaminophe 01-27 Oral, ity of n 11:00: Q6HPRN, [place] (PERCOCET) 58 Starting Medic al 5-325 mg on Tue per tablet 01/27/23 at 1 tablet 0600, Until Discontinu ed, Routine, Pain (scale 4-6) ondansetron Yes 4mg 4 mg, Slow Univers (ZOFRAN 01-27 IV Push, ity of (PF)) 11:00: Q6HPRN, [place] injection 4 57 Starting Medi xiomy mg on Tue Branch 01/27/23 at 0600, Until Discontinu ed, Routine, Nausea and Vomiting (N/V) naloxone Yes .1mg 0.1 mg, Univer s (NARCAN) 01-27 Intravenou ity o f injection 11:00: s, PRN - [place] 0.1 mg 56 SEE Medical INSTRUCTIO Branch NS, Starting on Tue01/27/23 at 0600, Until Discontinu ed, CHASITY, Sedation/R espiratory Depression acetaminoph 0 Yes 500mg 500 mg, Un mercedes en 01-27 Oral, ity of (TYLENOL) 11:00: Q8HPRN, [place] tablet 500 54 Starting Medic al mg on Tue Branch 01/27/23 at 0600, Until Discontinu ed, Routine, Pain (scale 1-3) oxyCODONE Yes 10mg 10 mg, Univer s CR 01-27 Oral, ity of (oxyCONTIN 01:00: Q12H, [place] CR) 12 hr 00 First dose Medi xiomy tablet 10 on Tue Branch mg 01/26/23 at 2000, Until Discontinu ed, Routine
architecture faculty member approving Restricted medication : NIKKIMONI FELIPE [place] oxyCODONE-a 2022-0 Yes 1{tbl} 1 tablet, Univers cetaminophe 6-21 Oral, ity of n 17:15: Q6HPRN, [place] (PERCOCET) 00 Starting Medic al 5-325 mg on Tue Branch per tablet 01/26/23 at 1 tablet 1215, Until Discontinu ed, Routine, Pain (scale 4-6) lisinopriL 2022-0 2022- No 20mg Take 20 mg Univers 20 mg -26 01-21 by mouth. ity of tablet 07:32: 00:00 [place] 14 :00 Medical Branch gabapentin 2022-0 Yes 800mg 800 mg, Uni vers (NEURONTIN) 6-21 Oral, QHS, it y of tablet 800 02:00: First dose [place] mg 00 on Tue01/25/23 at Branch 2100, Until Discontinu ed, Routine cyclobenzap 2022-0 Yes 10mg Take 1 Univ ers rine 10 mg 6-21 tablet by ity of tablet [...] (twelve) Branch hours. Indication s: acute pain cyclobenzap 2022-0 Yes 10mg Take 1 Univ ers rine 10 mg 6-21 tablet by ity of tablet 00:00: mouth [place] 00 every 8 Medical (eight) Branch hours. gabapentin 2023-0 Yes 400mg Take 1 Univ ers 400 mg 6-21 capsule by ity of capsule 00:00: mouth 2 [place] 00 (two) Medical times Branch daily before breakfast and dinner. gabapentin 2023-0 Yes 800mg Take 1 Univ ers 800 mg 6-21 tablet by ity of tablet 00:00: mouth at [place] 00 bedtime. Medical Branch oxyCODONE-a 2023-0 Yes 4647 1{tbl} Take 1 Un mercedes cetaminophe 6-21 tablet by ity of n 5-325 mg 00:00: mouth [place] per tablet 00 every 6 Medica l (six) Branch hours as needed for Pain (scale 4-6). Indication s: acute pain oxyCODONE 2023-0 Yes 4647 10mg Take 1 Univer s CR 10 mg 12 6-21 tablet by ity of hr tablet 00:00: mouth [place] 00 every 12 Medical (twelve) Branch hours. Indication s: acute pain cyclobenzap 2023-0 Yes 10mg Take 1 Univ ers rine 10 mg 6-21 tablet by ity of tablet 00:00: mouth [place] 00 every 8 Medical (eight) Branch hours. gabapentin 2023-0 Yes 400mg Take 1 Univ ers 400 mg 6-21 capsule by ity of capsule 00:00: mouth 2 00 (two) Medical times Branch daily before breakfast and dinner. gabapentin 2023-0 Yes 800mg Take 1 Univ ers 800 mg 6-21 tablet by ity of tablet 00:00: mouth at [place] 00 bedtime. Medical Branch oxyCODONE-a 2023-0 Yes 4647 1{tbl} Take 1 Un mercedes cetaminophe 6-21 tablet by ity of n 5-325 mg 00:00: mouth [place] per tablet 00 every 6 Medica l (six) Branch hours as needed for Pain (scale 4-6). Indication s: acute pain oxyCODONE 2023-0 Yes 4647 10mg Take 1 Univer s CR 10 mg 12 6-21 tablet by ity of hr tablet 00:00: mouth [place] 00 every 12 Medical (twelve) Branch hours. Indication s: acute pain cyclobenzap 2023-0 Yes 10mg Take 1 Univ ers rine 10 mg 6-21 tablet by ity of tablet [...] by ity of tablet 00:00: mouth at [place] 00 bedtime. Medical Branch oxyCODONE-a 2022-0 Yes [...] (scale 4-6). Indication s: acute pain gabapentin 0 Yes 400mg 400 mg, Uni vers (NEURONTIN) 6-20 Oral, ity of capsule 400 21:30: BIDAC, [place] mg 00 First dose Medical (after last modificati on) on Tue01/25/23 at 1630, Until Discontinu ed, Routine glycerin/mi 0 Yes 225mL 225 mL, Un mercedes neral oil 6-20 Rectal, ity of (AGLO 17:24: QHSPRN, [place] ENEMA) 25 Starting Medical (COMPOUNDED on Tue ) Enem 225 01/25/23 at mL 1224, Until Discontinu ed, Routine, Constipati on unresolved by oral medication s gabapentin 2022-0 2022- No 400mg 400 mg, Un mercedes (NEURONTIN) 6-19 06-20 Oral, TID, i ty of capsule 400 01:45: 19:03 First dose [place] mg 00 :31 (after Medical last Branch modificati on) on [place] 01/23/23 at 2045, Until Discontinu ed, Routine gabapentin 2022-0 2022- No 300mg 300 mg, Un mercedes (NEURONTIN) 01-2319 Oral, TID, i ty of capsule 300 14:45: 01:38 First dose [place] mg 00 :53 on [place] Medical 01/23/23 at Branch 0945, Until Discontinu ed, Routine simethicone 2022-0 Yes 80mg 80 mg, Univ ers (GAS RELIEF 01-22 Oral, ity of (SIMETHICON 18:00: PC+HS, [place] E)) 00 First dose Medical chewable on Sat Branch tablet 80 01/22/23 at mg 1300, Until Discontinu ed, Routine sodium 2022-0 2022- No 1{enema 1 Enema, Uni vers phosphates 01-21 } Rectal, ity o f (READY-TO-U 16:45: 03:12 ONCE, 1 [place] SE ENEMA) 00 :00 dose, On Medica l 19-7 Tue Branch gram/118 mL 01/21/23 at enema 1 1145, Enema Routine magnesium 2022-0 Yes 15mL 15 mL, Univer s hydroxide -15 Oral, ity of (MILK OF 18:45: DAILY, [place] MAGNESIA) 00 First dose Medi xiomy 400 mg/5 mL (after Branch suspension last 15 mL modificati on) on [facility] 01/20/23 at 1345, Until Discontinu ed, Routine ferrous 2022-0 Yes 325mg 325 mg, Univer s sulfate -15 Oral, Q ity of tablet 325 18:28: OTHERDAY, [place] mg 40 First dose Medical on [place] Branch 01/20/23 at 1330, Until Discontinu ed, Routine HYDROmorpho 2022-0 2022- No .5mg 0.5 mg, Un mercedes ne 01-1916 Slow IV ity of (DILAUDID) 16:58: 13:47 Push, [place] injection 31 :46 Q4HPRN, Medical 0.5 mg Starting Branch on Tue01/19/23 at 1158, Until Tue01/21/23 at 0847, Routine, Pain (scale 7-10)
U se approved by (Faculty): Pravin GRECO, ADULT/PEDI SPINE SURGERY acetaminoph Yes 500mg 500 mg, Un mercedes en 01-19 Oral, ity of (TYLENOL) 15:52: Q8HPRN, [place] tablet 500 07 Starting Medic al mg on Wed Branch 01/19/23 at 1052, Until Discontinu ed, Routine, Pain (scale 1-3) oxyCODONE-a 2022- No 1{tbl} 1 tablet, [place] [facility] cetaminophe 01-19 Oral, ity of n 15:51: 17:02 Q4HPRN, [place] (PERCOCET) 55 :14 Starting Medic al 5-325 mg on Tue Branch per tablet 01/19/23 at 1 tablet 1051, Until Tue01/26/23 at 1202, Routine, Pain (scale 4-6) sennosides- 0 Yes 1{tbl} 1 tablet, [place] [facility] docusate 01-19 Oral, ity of sodium 14:00: DAILY, [place] (SENOKOT-S) 00 First dose Me dical 8.6-50 mg on Wed Branch per tablet 01/19/23 at 1 tablet 0900, Until Discontinu ed, Routine sennosides- 0 Yes 1{tbl} 1 tablet, [place] [facility] docusate 01-19 Oral, ity of sodium 14:00: DAILY, [place] (SENOKOT-S) 00 First dose Me dical 8.6-50 mg on Wed Branch per tablet 01/19/23 at 1 tablet 0900, Until Discontinu ed, Routine HYDROmorpho 2022- No .2mg 0.2 mg, Un mercedes ne 01-19 Slow IV ity of (DILAUDID) 13:48: 16:58 Push, [place] injection 46 :42 Q4HPRN, Medical 0.2 mg Starting Branch on Tue01/19/23 at 0848, Until Tue01/19/23 at 1158, Routine, Pain (scale 7-10)
U se approved by (Faculty): Pravin GRECO, ADULT/PEDI SPINE SURGERY cyclobenzap Yes 10mg 10 mg, Univ ers rine 13 Oral, Q8H, ity of (FLEXERIL) 19:00: First [...] Tue01/18/23 at 1315, Until Discontinu ed oxyCODONE-a 2022-2022- No 2{tbl} 2 tablet, Univers cetaminophe 01-18 [...] magnesium 2022- No 2g 2 g, IV [facility] [place] [facility] ers sulfate in 01-18 Piggyback, it y of water 2 16:15: 17:49 Administer [place] as gram/50 mL 00 :00 over 60 Medica l (4 %) Minutes, Branch infusion 2 ONCE, 1 g dose, On Tue01/18/23 at 1115, Routine vancomycin 2022- No 1000mg 1,000 mg, Univers (VANCOCIN) 6-13 06-13 IV ity of 1,000 mg in 15:30: 16:47 Piggyback, [place] NaCl 0.9% 00 :00 Q12H ABX, Medic al (NS) 250 mL 1 dose, Branc h VIAL-desk representative dose IV (after piggyback last modificati on) on [facility] 01/18/23 at 1030, Administer over 60 Minutes, 250 mL
Reas on for Anti-Infec tive: Surgical Prophylaxi s
Vilchis rgical Prophylaxi s: Orthopaedi c
Durat ion of therapy: within 24 hours of surgery polyethylen 2022-0 Yes 17g 17 g, Unive rs e glycol 01-18 Oral, ity of 3350 powder 15:15: DAILY, [place] 17 g 00 First dose Medical on [facility] 01/18/23 at 1015, Until Discontinu ed, Routine polyethylen 2022-0 Yes 17g 17 g, Unive rs e glycol 01-18 Oral, ity of 3350 powder 15:15: DAILY, [place] 17 g 00 First dose Medical on [facility] 01/18/23 at 1015, Until Discontinu ed, Routine ARIPiprazol 0 Yes 15mg 15 mg, Univ ers e (ABILIFY) 01-18 Oral, ity of tablet 15 14:00: DAILY, [place] mg 00 First dose Medical on [facility] 01/18/23 at 0900, Until Discontinu ed, Routine SERTraline 0 Yes 50mg 50 mg, Unive rs (ZOLOFT) 01-18 Oral, ity of tablet 50 14:00: DAILY, [place] mg 00 First dose Medical on [facility] 01/18/23 at 0900, Until Discontinu ed, Routine SERTraline 0 Yes 50mg 50 mg, Unive rs (ZOLOFT) 01-18 Oral, ity of tablet 50 14:00: DAILY, [place] mg 00 First dose Medical on [facility] 01/18/23 at 0900, Until Discontinu ed, Routine propofoL IV 2022-0 2022- No 5ug/kg/ 5-50 Un mercedes infusion 01-18 min mcg/kg/min ity of 03:50: 16:02 ?73.2 kg [place] 11 :50 (2.196-21. Medical 96 mL/hr, Branch [...] Slow IV ity of (PF)) 02:50: Push, [place] injection 44 Q2HPRN, 5 Medic al 50 mcg doses, Branch Starting on Tue01/17/23 at 2150, Until Discontinu ed, Routine, Pain (scale 7-10) FENTanyl PF 2022- No 50ug 50 mcg, Un mercedes (SUBLIMAZE 01-18 Slow IV ity o f (PF)) 02:50: 02:50 Push, [place] injection 44 :00 Q2HPRN, 5 Medic al 50 mcg doses, Branch Starting on Tue01/17/23 at 2150, Until Tue01/18/23 at 2150, Routine, Pain (scale 7-10) BUPivacaine 2022- No PRN, Unive rs liposome 01-18 Starting ity of (PF) 01:34: 13:52 on Tue [place] (EXPAREL 00 :34 01/17/23 at Medic al (PF)) 1.3 % 2033, Branch (13.3 Intra-op mg/mL) 266 mg, NaCl 0.9% (NS) 20 mL vancomycin 2022- No PRN, Univer s (VANCOCIN) 01-18 Starting ity of injection 01:33: 13:52 on Tue [place] 00 :34 01/17/23 at Medical 2032, Branch Until Tue01/18/23 at 0852, CHASITY, Intra-op topiramate Yes 50mg 50 mg, Unive rs (TOPAMAX) 01-18 Oral, BID, ity of tablet 50 01:00: First dose [place] mg 00 on [facility] 01/17/23 at [place] 2000, Until Discontinu ed, Routine
architecture faculty member approving Restricted medication : BERNARDO TRENT topiramate 2022- No 50mg 50 mg, Univ ers (TOPAMAX) 01-1815 Oral, BID, ity of tablet 50 01:00: 14:55 First dose [place] mg 00 :18 on [facility] 01/17/23 at [place] 1999, Until Discontinu ed, Routine
architecture faculty member approving Restricted medication : BERNARDO TRENT lidocaine-e 2022- No PRN, Unive rs pinephrine 01-17 Starting ity of (XYLOCAINE 14:54: 13:52 on [facility] [place] WITH 00 :34 01/17/[address] [facility] EPINEPHRINE 0954, [place] ) 1 Until Tue %-1:100,000 01/18/23 at injection 0852, Routine, Intra-op heparin 2022- No PRN, Univers 10,000 01-17 Starting ity of units in NS 14:52: 13:52 on [facility] Neal as 1000 mL for 00 :34 01/17/23 at Mn dical vascular 0952, [place] Intra-op pantoprazol Yes 40mg 40 mg, Univ ers e 01-17 Oral, ity of (PROTONIX) 14:00: DAILY, [place] EC tablet 00 First dose Medi xiomy 40 mg on [facility] 01/17/23 at 0900, Until Discontinu ed, Routine
Indicatio n for use: None of the above lisinopriL Yes 10mg 10 mg, Unive rs (PRINIVIL,Z 01-17 Oral, ity of ESTRIL) 14:00: DAILY, [place] tablet 10 00 First dose Medi xiomy mg on [facility] 01/17/23 at 0900, Until Discontinu ed, Routine pantoprazol 2022- No 40mg 40 mg, Uni vers e 01-17 Oral, ity of (PROTONIX) 14:00: 15:00 DAILY, [place] EC tablet 00 :41 First dose Medi xiomy 40 mg on [facility] 01/17/23 at 0900, Until Discontinu ed, Routine
Indicatio n for use: None of the above naloxone 2022-0 Yes .1mg 0.1 mg, Univer s (NARCAN) 01-17 Intravenou ity o f injection 12:45: s, PRN - [place] 0.1 mg 04 SEE Medical INSTRUCTIO [facility], Starting on Tue01/17/23 at 0745, Until Discontinu ed, CHASITY, Sedation/R espiratory Depression magnesium 2022-0 Yes 15mL 15 mL, Univer s hydroxide 01-17 Oral, ity of (MILK OF 12:45: QIDPRN, [place] MAGNESIA) 04 Starting Medica l 400 mg/5 mL on Tue01/17/23 at 15 mL 0745, Until Discontinu ed, Routine, Constipati on ondansetron 0 Yes 4mg 4 mg, Slow Univers (ZOFRAN 6-12 IV Push, ity of (PF)) 12:45: Q6HPRN, [place] injection 4 04 Starting Medi xiomy mg on Tue Branch 01/17/23 at 0745, Until Discontinu ed, Routine, Nausea and Vomiting (N/V) naloxone 0 Yes .1mg 0.1 mg, Univer s (NARCAN) 01-17 Intravenou ity o f injection 12:45: s, PRN - [place] 0.1 mg 04 SEE Medical INSTRUCTIO [facility], Starting on Tue01/17/23 at 0745, Until Discontinu ed, CHASITY, Sedation/R espiratory Depression ondansetron 0 Yes 4mg 4 mg, Slow Univers (ZOFRAN [...] 00 :00 dose, On Medical 1,000 mg [facility] Branch 01/17/23 at 0530, Routine, DSU Pre-op lisinopriL Yes 20mg Take 20 mg U nivers 20 mg 01-17 by mouth. ity of tablet 07:47: [place] [address] [facility] Branch dextroamphe 0 Yes 10mg Take 1 Univ ers tamine-amph 5-01 tablet by ity of etamine 10 00:00: mouth in [place] mg tablet 00 the Medical morning. Branch dextroamphe 3-0 Yes 10mg Take 1 Univ ers tamine-amph 5-01 tablet by ity of etamine 10 00:00: mouth in [place] mg tablet 00 the Medical morning. Branch dextroamphe 3-0 Yes 10mg Take 1 Univ ers tamine-amph 5-01 tablet by ity of etamine 10 00:00: mouth in [place] mg tablet 00 the Medical morning. Branch dextroamphe 3-0 Yes 10mg Take 1 Univ ers tamine-amph 5-01 tablet by ity of etamine 10 00:00: mouth in [place] mg tablet 00 the Medical morning. Branch dextroamphe 3-0 Yes 10mg Take 1 Univ ers tamine-amph 5-01 tablet by ity of etamine 10 00:00: mouth in [place] mg tablet 00 the Medical morning. Branch ARIPiprazol 2022-0 2023- Yes 15mg Take 1 Uni vers e 15 mg 4-11 04-11 tablet by ity of tablet 00:00: 04:59 mouth. [place] 00 :00 Medical Branch ARIPiprazol 2022-0 2023- Yes 15mg Take 1 Uni vers e 15 mg 4-11 04-11 tablet by ity of tablet 00:00: 04:59 mouth. [place] 00 :00 Medical Branch ARIPiprazol 2022-0 2023- Yes 15mg Take 1 Uni vers e 15 mg 4-11 04-11 tablet by ity of tablet 00:00: 04:59 mouth. [place] 00 :00 Medical Branch ARIPiprazol 2022-0 2023- Yes 15mg Take 1 Uni vers e 15 mg 4-11 04-11 tablet by ity of tablet 00:00: 04:59 mouth. [place] 00 :00 Medical [place] ARIPiprazol 2022-0 2023- Yes 15mg Take 1 Uni vers e 15 mg 4-11 04-11 tablet by ity of tablet 00:00: 04:59 mouth. [place] 00 :[address] [facility] Branch ergocalcife 2022-0 Yes [id number] Take 1 Univers rol, 3-16 capsule by ity of vitamin d2, 00:00: mouth [place] 1,250 mcg 00 weekly. Medical (50,000 Branch unit) capsule ergocalcife 2023-0 Yes [id number] Take 1 Univers rol, 3-16 capsule by ity of vitamin d2, 00:00: mouth [place] 1,250 mcg 00 weekly. Medical (50,000 Branch unit) capsule ergocalcife 2023-0 Yes [id number] Take 1 Univers rol, 3-16 capsule by ity of vitamin d2, 00:00: mouth [place] 1,250 mcg 00 weekly. Medical (50,000 Branch unit) capsule ergocalcife 2023-0 Yes [id number] Take 1 Univers rol, 3-16 capsule by ity of vitamin d2, 00:00: mouth [place] 1,250 mcg 00 weekly. Medical (50,000 Branch unit) capsule ergocalcife 2023-0 Yes [id number] Take 1 Univers rol, 3-16 capsule by ity of vitamin d2, 00:00: mouth [place] 1,250 mcg 00 weekly. Medical (50,000 Branch unit) capsule ergocalcife 2023-0 Yes [id number] Take 1 Univers rol, 3-16 capsule by ity of vitamin d2, 00:00: mouth [place] 1,250 mcg 00 weekly. Medical (50,000 Branch unit) capsule ergocalcife 2023-0 Yes [id number] Take 1 Univers rol, 3-16 capsule by ity of vitamin d2, 00:00: mouth [place] 1,250 mcg 00 weekly. Medical (50,000 Branch unit) capsule ergocalcife 2023-0 Yes [id number] Take 1 Univers rol, 3-16 capsule by ity of vitamin d2, 00:00: mouth [place] 1,250 mcg 00 weekly. Medical (50,000 Branch unit) capsule ergocalcife 2023-0 Yes [id number] Take 1 Univers rol, 3-16 capsule by ity of vitamin d2, 00:00: mouth [place] 1,250 mcg 00 weekly. Medical (50,000 Branch unit) capsule ergocalcife 2023-0 Yes [id number] Take 1 Univers rol, 3-16 capsule by ity of vitamin d2, 00:00: mouth [place] 1,250 mcg 00 weekly. Medical (50,000 Branch unit) capsule ergocalcife 2023-0 Yes [id number] Take 1 Univers rol, 3-16 capsule by ity of vitamin d2, 00:00: mouth [place] 1,250 mcg 00 weekly. Medical (50,000 Branch unit) capsule ergocalcife 2023-0 Yes [id number] Take 1 Univers rol, 3-16 capsule by ity of vitamin d2, 00:00: mouth [place] 1,250 mcg 00 weekly. Medical (50,000 Branch unit) capsule ergocalcife 2023-0 Yes [id number] Take 1 Univers rol, 3-16 capsule by ity of vitamin d2, 00:00: mouth [place] 1,250 mcg 00 weekly. Medical (50,000 Branch unit) capsule ergocalcife 2023-0 Yes [id number] Take 1 Univers rol, 3-16 capsule by ity of vitamin d2, 00:00: mouth [place] 1,250 mcg 00 weekly. Medical (50,000 Branch unit) capsule ergocalcife 2023-0 Yes [id number] Take 1 Univers rol, 3-16 capsule by ity of vitamin d2, 00:00: mouth [place] 1,250 mcg 00 weekly. Medical (50,000 Branch unit) capsule ergocalcife 2023-0 Yes [id number] Take 1 Univers rol, 3-16 capsule by ity of vitamin d2, 00:00: mouth [place] 1,250 mcg 00 weekly. Medical (50,000 Branch unit) capsule ergocalcife 2023-0 Yes [id number] Take 1 Univers rol, 3-16 capsule by ity of vitamin d2, 00:00: mouth [place] 1,250 mcg 00 weekly. Medical (50,000 Branch unit) capsule ergocalcife 2023-0 Yes [id number] Take 1 Univers rol, 3-16 capsule by ity of vitamin d2, 00:00: mouth [place] 1,250 mcg 00 weekly. Medical (50,000 Branch unit) capsule ergocalcife 2023-0 Yes [id number] Take 1 [facility] rol, 3-16 capsule by ity of vitamin d2, 00:00: mouth [place] 1,250 mcg 00 weekly. Medical (50,000 Branch unit) capsule ergocalcife 2023-0 Yes [id number] Take 1 [facility] rol, 3-16 capsule by ity of vitamin d2, 00:00: mouth [place] 1,250 mcg 00 weekly. Medical (50,000 Branch unit) capsule ergocalcife 2023-0 Yes [id number] Take 1 [facility] rol, 3-16 capsule by ity of vitamin d2, 00:00: mouth [place] 1,250 mcg 00 weekly. Medical (50,000 Branch unit) capsule ergocalcife 2023-0 Yes [id number] Take 1 [facility] rol, 3-16 capsule by ity of vitamin d2, 00:00: mouth [place] 1,250 mcg 00 weekly. Medical (50,000 Branch unit) capsule ergocalcife 2023-0 Yes [id number] Take 1 [facility] rol, 3-16 capsule by ity of vitamin d2, 00:00: mouth [place] 1,250 mcg 00 weekly. Medical (50,000 Branch unit) capsule topiramate 2023-0 2024- No 50mg Take 1 [facility] ers 50 mg 2-10 02-11 tablet by ity of tablet 00:00: 05:59 mouth. [place] 00 :00 Medical Branch topiramate 2023-0 2024- No 50mg Take 1 [facility] ers 50 mg 2-10 02-11 tablet by ity of tablet 00:00: 05:59 mouth. [place] 00 :00 Medical Branch topiramate 2023-0 2024- No 50mg Take 1 Univ ers 50 mg 2-10 02-11 tablet by ity of tablet 00:00: 05:59 mouth. [place] 00 :00 Medical Branch topiramate 2023-0 2024- No 50mg Take 1 [facility] ers 50 mg 2-10 02-11 tablet by ity of tablet 00:00: 05:59 mouth. [place] 00 :00 Medical Branch topiramate 2023-0 2024- No 50mg Take 1 Univ ers 50 mg 2-10 02-11 tablet by ity of tablet 00:00: 05:59 mouth. [place] 00 :00 Medical Branch lisinopriL 2021- Yes 20mg Take 20 mg U nivers 20 mg 1-21 by mouth. ity of tablet 06:17: [place] [address] Medical Branch lisinopriL 2021-08 Yes 20mg Take 20 mg U nivers 20 mg 1-21 by mouth. ity of tablet 06:17: [place] [address] Medical Branch lisinopriL 2021-08 Yes 20mg Take 20 mg U nivers 20 mg 1-21 by mouth. ity of tablet 06:17: [address] lisinopriL 2021-08 Yes 20mg Take 20 mg U nivers 20 mg 1-21 by mouth. ity of tablet 06:17: [address] lisinopriL 2021-08 Yes 20mg Take 20 mg U nivers 20 mg 1-21 by mouth. ity of tablet 06:17: [address] lisinopriL 2021-08 Yes 20mg Take 20 mg U nivers 20 mg 1-21 by mouth. ity of tablet 06:17: [address] lisinopriL 2021-08 Yes 20mg Take 20 mg U nivers 20 mg 1-21 by mouth. ity of tablet 06:17: [address] lisinopriL 2021-08 Yes 20mg Take 20 mg U nivers 20 mg 1-21 by mouth. ity of tablet 06:17: [address] lisinopriL 2021-08 Yes 20mg Take 20 mg U nivers 20 mg 1-21 by mouth. ity of tablet 06:17: [address] lisinopriL 2021-08 Yes 20mg Take 20 mg U nivers 20 mg 1-21 by mouth. ity of tablet 06:17: [address] lisinopriL 2021-08 Yes 20mg Take 20 mg U nivers 20 mg 1-21 by mouth. ity of tablet 06:17: [address] lisinopriL 2021-08 Yes 20mg Take 20 mg U nivers 20 mg 1-21 by mouth. ity of tablet 06:17: [address] lisinopriL 2021-08 Yes 20mg Take 20 mg U nivers 20 mg 1-21 by mouth. ity of tablet 06:17: [address] lisinopriL 2021-08 Yes 20mg Take 20 mg U nivers 20 mg 1-21 by mouth. ity of tablet 06:17: [address] lisinopriL 2021-08 Yes 20mg Take 20 mg U nivers 20 mg 1-21 by mouth. ity of tablet 06:17: [address] lisinopriL 2021-08 Yes 20mg Take 20 mg U nivers 20 mg 1-21 by mouth. ity of tablet 06:17: [address] lisinopriL 2021-08 Yes 20mg Take 20 mg U nivers 20 mg 1-21 by mouth. ity of tablet 06:17: [address] lisinopriL 2021-08 Yes 20mg Take 20 mg U nivers 20 mg 1-21 by mouth. ity of tablet 06:17: [address] lisinopriL 2021-08 Yes 20mg Take 20 mg U nivers 20 mg 1-21 by mouth. ity of tablet 06:17: [address] lisinopriL 2021-08 Yes 20mg Take 20 mg U nivers 20 mg 1-21 by mouth. ity of tablet 06:17: [address] lisinopriL 2021-08 Yes 20mg Take 20 mg U nivers 20 mg 1-21 by mouth. ity of tablet 06:17: [address] lisinopriL 2021-08 Yes 20mg Take 20 mg U nivers 20 mg 1-21 by mouth. ity of tablet 06:17: [address] lisinopriL 2021-08 Yes 20mg Take 20 mg U nivers 20 mg 1-21 by mouth. ity of tablet 06:17: [address] lisinopriL 2021-08 Yes 20mg Take 20 mg U nivers 20 mg 1-21 by mouth. ity of tablet 06:17: [address] lisinopriL 2021-08 Yes 20mg Take 20 mg U nivers 20 mg 1-21 by mouth. ity of tablet 06:17: [address] lisinopriL 2021-08 Yes 20mg Take 20 mg U nivers 20 mg 1-21 by mouth. ity of tablet 06:17: [address] lisinopriL 2021-08 Yes 20mg Take 20 mg U nivers 20 mg 1-21 by mouth. ity of tablet 06:17: [address] lisinopriL 2021-08 Yes 20mg Take 20 mg U nivers 20 mg 1-21 by mouth. ity of tablet 06:17: [address] lisinopriL 2021-08 Yes 20mg Take 20 mg U nivers 20 mg 1-21 by mouth. ity of tablet 06:17: [address] lisinopriL 2021-08 Yes 20mg Take 20 mg U nivers 20 mg 1-21 by mouth. ity of tablet 06:17: [address] lisinopriL 2021-08 Yes 20mg Take 20 mg U nivers 20 mg 1-21 by mouth. ity of tablet 06:17: [address] lisinopriL 2021-08 Yes 20mg Take 20 mg U nivers 20 mg 1-21 by mouth. ity of tablet 06:17: [address] lisinopriL 2021-08 Yes 20mg Take 20 mg U nivers 20 mg 1-21 by mouth. ity of tablet 06:17: [address] lisinopriL 2021-08 Yes 20mg Take 20 mg U nivers 20 mg 1-21 by mouth. ity of tablet 06:17: [address] lisinopriL 2021-08 Yes 20mg Take 20 mg U nivers 20 mg 1-21 by mouth. ity of tablet 06:17: [address] lisinopriL 2021-08 Yes 20mg Take 20 mg U nivers 20 mg 1-21 by mouth. ity of tablet 06:17: [address] lisinopriL 2021-08 Yes 20mg Take 20 mg U nivers 20 mg 1-21 by mouth. ity of tablet 06:17: [address] lisinopriL 2021-08 Yes 20mg Take 20 mg U nivers 20 mg 1-21 by mouth. ity of tablet 06:17: [address] lisinopriL 2021-08 Yes 20mg Take 20 mg U nivers 20 mg 1-21 by mouth. ity of tablet 06:17: [address] lisinopriL 2021-08 Yes 20mg Take 20 mg U nivers 20 mg 1-21 by mouth. ity of tablet 06:17: [address] meloxicam 2-0 2021- No [id number] 7.5mg Take 1 [facility] 7.5 mg 8- 10-04 tablet by ity of tablet 00:00: 04:59 mouth in [place] 00 :00 [facility] for 60 days. meloxicam 2-0 2- No [id number] 7.5mg Take 1 [facility] 7.5 mg 8-04 10-04 tablet by ity of tablet 00:00: 04:59 mouth in [place] 00 :00 [facility] for 60 days. meloxicam 2021-0 2021- No [id number] 7.5mg Take 1 [facility] 7.5 mg 8-04 10-04 tablet by ity of tablet 00:00: 04:59 mouth in [place] 00 :00 the [facility] for 60 days. meloxicam 2021-0 2- No [id number] 7.5mg Take 1 [facility] 7.5 mg 8-04 10-04 tablet by ity of tablet 00:00: 04:59 mouth in [place] 00 :00 the [facility] for 60 days. meloxicam 2021-0 2021- No [id number] 7.5mg Take 1 [facility] 7.5 mg 8-04 10-04 tablet by ity of tablet 00:00: 04:59 mouth in [place] 00 :00 the [facility] for 60 days. meloxicam 2021-0 2021- No [id number] 7.5mg Take 1 [facility] 7.5 mg 8-04 10-04 tablet by ity of tablet 00:00: 04:59 mouth in [place] 00 :00 the [facility] for 60 days. meloxicam 2021-0 2021- No [id number] 7.5mg Take 1 [facility] 7.5 mg 8-04 10-04 tablet by ity of tablet 00:00: 04:59 mouth in [place] 00 :00 the [facility] for 60 days. meloxicam 2021-0 2021- No [id number] 7.5mg Take 1 [facility] 7.5 mg 8- 10-04 tablet by ity of tablet 00:00: 04:59 mouth in [place] 00 :00 the [facility] for 60 days. meloxicam 2021-0 2021- No [id number] 7.5mg Take 1 [facility] 7.5 mg 8-04 10-04 tablet by ity of tablet 00:00: 04:59 mouth in [place] 00 :00 [facility] for 60 days. cyclobenzap 2021-0 2021- No [id number] 10mg Take 1 [facility] rine 10 mg 8- 09-04 tablet by ity of tablet 00:00: 04:59 mouth in [place] 00 :00 the [facility] and 1 tablet at noon and 1 tablet in the evening. Do all this for 30 days. acetaminoph 2021-0 2021- No [id number] 1000mg Take 2 [facility] en (TYLENOL 8-04 09- tablets by i ty of EXTRA 00:00: 04:59 mouth [place] STRENGTH) 00 :00 every 8 Medical 500 mg (eight) Branch tablet hours as needed for Pain for up to 30 days. cyclobenzap 2021- No [id number] 10mg Take 1 [facility] rine 10 mg 03-11 tablet by ity of tablet 00:00: 04:59 mouth in [place] 00 :00 the Medical morning Branch and 1 tablet at noon and 1 tablet in the evening. Do all this for 30 days. acetaminoph 2021- No [id number] 1000mg Take 2 [facility] en (TYLENOL 03-11 tablets by i ty of EXTRA 00:00: 04:59 mouth [place] STRENGTH) 00 :00 every 8 Medical 500 mg (eight) Branch tablet hours as needed for Pain for up to 30 days. cyclobenzap 2021- No [id number] 10mg Take 1 [facility] rine 10 mg 03-11 tablet by ity of tablet 00:00: 04:59 mouth in [place] 00 :00 the Medical morning Branch and 1 tablet at noon and 1 tablet in the evening. Do all this for 30 days. acetaminoph 2021-0 2021- No [id number] 1000mg Take 2 [facility] en (TYLENOL 03-11- tablets by i ty of EXTRA 00:00: 04:59 mouth [place] STRENGTH) 00 :00 every 8 Medical 500 mg (eight) Branch tablet hours as needed for Pain for up to 30 days. cyclobenzap 2021- No [id number] 10mg Take 1 [facility] rine 10 mg 03-11 tablet by ity of tablet 00:00: 04:59 mouth in [place] 00 :00 the Medical morning Branch and 1 tablet at noon and 1 tablet in the evening. Do all this for 30 days. acetaminoph 0 2021- No [id number] 1000mg Take 2 [facility] en (TYLENOL 03-11 tablets by i ty of EXTRA 00:00: 04:59 mouth [place] STRENGTH) 00 :00 every 8 Medical 500 mg (eight) Branch tablet hours as needed for Pain for up to 30 days. lisinopriL 2021-0 Yes 20mg Take 20 mg U nivers 20 mg 7-19 by mouth. ity of tablet 08:19: [address] lisinopriL 2022-0 Yes 20mg Take 20 mg U nivers 20 mg 7-19 by mouth. ity of tablet 08:19: [address] lisinopriL 2022-0 Yes 20mg Take 20 mg U nivers 20 mg 7-19 by mouth. ity of tablet 08:19: [address] lisinopriL 2022-0 Yes 20mg Take 20 mg U nivers 20 mg 7-19 by mouth. ity of tablet 08:19: [address] lisinopriL 2022-0 Yes 20mg Take 20 mg U nivers 20 mg 7-19 by mouth. ity of tablet 08:19: [address] lisinopriL 2022-0 Yes 20mg Take 20 mg U nivers 20 mg 7-19 by mouth. ity of tablet 08:19: [address] lisinopriL 2022-0 Yes 20mg Take 20 mg U nivers 20 mg 7-19 by mouth. ity of tablet 08:19: [address] lisinopriL 2022-0 Yes 20mg Take 20 mg U nivers 20 mg 7-19 by mouth. ity of tablet 08:19: [address] lisinopriL 2022-0 Yes 20mg Take 20 mg U nivers 20 mg 7-19 by mouth. ity of tablet 08:19: [address] lisinopriL 2022-0 Yes 20mg Take 20 mg U nivers 20 mg 7-19 by mouth. ity of tablet 08:19: [address] lisinopriL 2022-0 Yes 20mg Take 20 mg U nivers 20 mg 7-19 by mouth. ity of tablet 08:19: [address] lisinopriL 2022-0 Yes 20mg Take 20 mg U nivers 20 mg 7-19 by mouth. ity of tablet 08:19: [address] lisinopriL 2022-0 Yes 20mg Take 20 mg U nivers 20 mg 7-19 by mouth. ity of tablet 08:19: [address] lisinopriL 2022-0 Yes 20mg Take 20 mg U nivers 20 mg 7-19 by mouth. ity of tablet 08:19: [address] lisinopriL 2022-0 Yes 20mg Take 20 mg U nivers 20 mg 7-19 by mouth. ity of tablet 08:19: [address] lisinopriL 2022-0 Yes 20mg Take 20 mg U nivers 20 mg 7-19 by mouth. ity of tablet 08:19: [address] lisinopriL 2022-0 Yes 20mg Take 20 mg U nivers 20 mg 7-19 by mouth. ity of tablet 08:19: [address] lisinopriL 2022-0 Yes 20mg Take 20 mg U nivers 20 mg 7-19 by mouth. ity of tablet 08:19: [address] lisinopriL 2022-0 Yes 20mg Take 20 mg U nivers 20 mg 7-19 by mouth. ity of tablet 08:19: [address] Dose 2022-0 No Unknown 5-09 00:00: [...] mg by ity of tablet 00:00: mouth. [address] SERTraline 2020-08 Yes 300mg Take 300 Un [place] 100 mg 2-13 mg by ity of tablet 00:00: mouth. [address] SERTraline 2021-1 Yes 300mg Take 300 Un [place] 100 mg 2-13 mg by ity of tablet 00:00: mouth. [place] [facility] SERTraline 2020-08 Yes 300mg Take 300 Un [place] 100 mg 2-13 mg by ity of tablet 00:00: mouth. [place] [facility] SERTraline 2020-08 Yes 300mg Take 300 Un [place] 100 mg 2-13 mg by ity of tablet 00:00: mouth. [place] [facility] SERTraline 2020-08 Yes 300mg Take 300 Un [place] 100 mg 2-13 mg by ity of tablet 00:00: mouth. [place] [facility] SERTraline 2020-08 Yes 300mg Take 300 Un [place] 100 mg 2-13 mg by ity of tablet 00:00: mouth. [place] [facility] SERTraline 2020-08 Yes 300mg Take 300 Un [place] 100 mg 2-13 mg by ity of tablet 00:00: mouth. [place] [facility] SERTraline 2020-08 Yes 300mg Take 300 Un [place] 100 mg 2-13 mg by ity of tablet 00:00: mouth. [place] [facility] SERTraline 2020-08 Yes 300mg Take 300 Un [place] 100 mg 2-13 mg by ity of tablet 00:00: mouth. [place] [facility] SERTraline 2020-08 Yes 300mg Take 300 Un [place] 100 mg 2-13 mg by ity of tablet 00:00: mouth. [place] [facility] SERTraline 2020-08 Yes 300mg Take 300 Un [place] 100 mg 2-13 mg by ity of tablet 00:00: mouth. [place] [facility] SERTraline 2020-08 Yes 300mg Take 300 Un [place] 100 mg 2-13 mg by ity of tablet 00:00: mouth. [place] [facility] SERTraline 2020-08 Yes 300mg Take 300 Un [place] 100 mg 2-13 mg by ity of tablet 00:00: mouth. [place] [facility] SERTraline 2020-08 Yes 300mg Take 300 Un [place] 100 mg 2-13 mg by ity of tablet 00:00: mouth. [place] [facility] SERTraline 2020-08 Yes 300mg Take 300 Un [place] 100 mg 2-13 mg by ity of tablet 00:00: mouth. [place] [facility] SERTraline 2020-08 Yes 300mg Take 300 Un [place] 100 mg 2-13 mg by ity of tablet 00:00: mouth. [place] [facility] SERTraline 2020-08 Yes 300mg Take 300 Un [place] 100 mg 2-13 mg by ity of tablet 00:00: mouth. [place] [facility] SERTraline 2020-08 Yes 300mg Take 300 Un [place] 100 mg 2-13 mg by ity of tablet 00:00: mouth. [place] [facility] SERTraline 2020-08 Yes 300mg Take 300 Un [place] 100 mg 2-13 mg by ity of tablet 00:00: mouth. [place] [facility] SERTraline 2020-08 Yes 300mg Take 300 Un [place] 100 mg 2-13 mg by ity of tablet 00:00: mouth. [place] [facility] SERTraline 2020-08 Yes 300mg Take 300 Un [place] 100 mg 2-13 mg by ity of tablet 00:00: mouth. [place] [facility] SERTraline 2020-08 Yes 300mg Take 300 Un [place] 100 mg 2-13 mg by ity of tablet 00:00: mouth. [place] [facility] SERTraline 2020-08 Yes 300mg Take 300 Un [place] 100 mg 2-13 mg by ity of tablet 00:00: mouth. [place] [facility] SERTraline 2020-08 Yes 300mg Take 300 Un [place] 100 mg 2-13 mg by ity of tablet 00:00: mouth. [place] [facility] SERTraline 2020-08 Yes 300mg Take 300 Un [place] 100 mg 2-13 mg by ity of tablet 00:00: mouth. [place] [facility] SERTraline 2020-08 Yes 300mg Take 300 Un [place] 100 mg 2-13 mg by ity of tablet 00:00: mouth. [place] [facility] SERTraline 2020-08 Yes 300mg Take 300 Un [place] 100 mg 2-13 mg by ity of tablet 00:00: mouth. [place] [facility] SERTraline 2020-08 Yes 300mg Take 300 Un [place] 100 mg 2-13 mg by ity of tablet 00:00: mouth. [place] [facility] SERTraline 2020-08 Yes 300mg Take 300 Un [place] 100 mg 2-13 mg by ity of tablet 00:00: mouth. [place] [facility] SERTraline 2020-08 Yes 300mg Take 300 Un [place] 100 mg 2-13 mg by ity of tablet 00:00: mouth. Medical Branch SERTraline 2020-08 Yes 300mg Take 300 Un [place] 100 mg 2-13 mg by ity of tablet 00:00: mouth. [place] [facility] SERTraline 2020-08 Yes 300mg Take 300 Un [place] 100 mg 2-13 mg by ity of tablet 00:00: mouth. [facility] SERTraline 2020-08 Yes 300mg Take 300 Un [place] 100 mg 2-13 mg by ity of tablet 00:00: mouth. [place] [facility] SERTraline 2020-08 Yes 300mg Take 300 Un [place] 100 mg 2-13 mg by ity of tablet 00:00: mouth. [place] [facility] SERTraline 2020-08 Yes 300mg Take 300 Un [place] 100 mg 2-13 mg by ity of tablet 00:00: mouth. [place] [facility] SERTraline 2020-08 Yes 300mg Take 300 Un [place] 100 mg 2-13 mg by ity of tablet 00:00: mouth. [place] [facility] SERTraline 2020-08 Yes 300mg Take 300 Un [place] 100 mg 2-13 mg by ity of tablet 00:00: mouth. [place] [facility] Branch SERTraline 2020-08 Yes 300mg Take 300 Un [place] 100 mg 2-13 mg by ity of tablet 00:00: mouth. [place] [facility] SERTraline 2020-08 Yes 300mg Take 300 Un [place] 100 mg 2-13 mg by ity of tablet 00:00: mouth. [place] [facility] SERTraline 2020-08 Yes 300mg Take 300 Un [place] 100 mg 2-13 mg by ity of tablet 00:00: mouth. [place] [facility] SERTraline 2020-08 Yes 300mg Take 300 Un [place] 100 mg 2-13 mg by ity of tablet 00:00: mouth. [place] [facility] SERTraline 2020-08 Yes 300mg Take 300 Un [place] 100 mg 2-13 mg by ity of tablet 00:00: mouth. [place] [facility] SERTraline 2020-08 Yes 300mg Take 300 Un [place] 100 mg 2-13 mg by ity of tablet 00:00: mouth. [facility] SERTraline 2020-08 Yes 300mg Take 300 Un [place] 100 mg 2-13 mg by ity of tablet 00:00: mouth. [facility] SERTraline 2020-08 Yes 300mg Take 300 Un [place] 100 mg 2-13 mg by ity of tablet 00:00: mouth. [place] [facility] SERTraline 2020-08 Yes 300mg Take 300 Un [place] 100 mg 2-13 mg by ity of tablet 00:00: mouth. [place] [facility] SERTraline 2020-08 Yes 300mg Take 300 Un [place] 100 mg 2-13 mg by ity of tablet 00:00: mouth. [place] [facility] SERTraline 2020-08 Yes 300mg Take 300 Un [place] 100 mg 2-13 mg by ity of tablet 00:00: mouth. [place] [facility] SERTraline 2020-08 Yes 300mg Take 300 Un [place] 100 mg 2-13 mg by ity of tablet 00:00: mouth. [place] [facility] SERTraline 2020-08 Yes 300mg Take 300 Un [place] 100 mg 2-13 mg by ity of tablet 00:00: mouth. [place] [facility] SERTraline 2020-08 Yes 300mg Take 300 Un [place] 100 mg 2-13 mg by ity of tablet 00:00: mouth. [place] [facility] SERTraline 2020-08 Yes 300mg Take 300 Un [place] 100 mg 2-13 mg by ity of tablet 00:00: mouth. [place] [facility] SERTraline 2020-08 Yes 300mg Take 300 Un [place] 100 mg 2-13 mg by ity of tablet 00:00: mouth. [place] [facility] SERTraline 2020-08 Yes 300mg Take 300 Un [place] 100 mg 2-13 mg by ity of tablet 00:00: mouth. [place] [facility] SERTraline 2020-08 Yes 300mg Take 300 Un [place] 100 mg 2-13 mg by ity of tablet 00:00: mouth. [place] [facility] SERTraline 2020-08 Yes 300mg Take 300 Un [place] 100 mg 2-13 mg by ity of tablet 00:00: mouth. [place] [facility] SERTraline 2020-08 Yes 300mg Take 300 Un [place] 100 mg 2-13 mg by ity of tablet 00:00: mouth. [place] [facility] SERTraline 2020-08 Yes 300mg Take 300 Un [place] 100 mg 2-13 mg by ity of tablet 00:00: mouth. [place] [facility] SERTraline 2020-08 Yes 300mg Take 300 Un [place] 100 mg 2-13 mg by ity of tablet 00:00: mouth. [place] [facility] SERTraline 2020-08 Yes 300mg Take 300 Un [place] 100 mg 2-13 mg by ity of tablet 00:00: mouth. [place] [facility] SERTraline 2020-08- No 300mg Take 300 U nivers 100 mg 2-13 06-22 mg by ity of tablet 00:00: 00:00 mouth. [place] 00 :00 Medical Branch Dose 2020-08 No Unknown 2-02 00:00: 00 Dose 2020-08 No Unknown 2-02 00:00: 00 Dose 2020-08 No Unknown 2-02 00:00: 00 Dose 2020-08 No Unknown 2-02 00:00: 00 Zoloft 100 2020- No 2mg mg tablet 1-10 00:00: 00 Zoloft 100 2020-08 No 2mg mg tablet 1-10 00:00: 00 Dose 2020- No Unknown 1-08 00:00: 00 Dose 2020- No Unknown 1-08 00:00: 00 Dose 2020- No Unknown 1-08 00:00: 00 Dose 2020- No Unknown 1-08 00:00: 00 Dose 2020- No Unknown 0-19 00:00: 00 Dose 2020- No Unknown 0-19 00:00: 00 Dose 2020- No Unknown 0-10 00:00: 00 Dose 2020- No Unknown 0-10 00:00: 00 Dose 2020- No Unknown 0-10 00:00: 00 Dose 2020- No Unknown 0-10 00:00: 00 benzonatate 2020-0 Yes [id number] 100mg Take 1 [facility] 100 mg 04-09 capsule by ity of capsule 00:00: mouth 3 [place] [address] (three) Medical times Branch daily as needed for Cough. bromphenira 2020-0 Yes [id number] 5mL Take 5 mL [facility] mine-pseudo - by mouth 4 it y of ephedrine-D 00:00: (four[place] (BROMFED 00 times Medical DM) 2-30-10 daily as Bran ch mg/5 mL needed for syrup Congestion /Allergies or Cough. albuterol 2020-0 Yes [id number] 2{puff} Inhale 2 Univers 90 9-02 Puffs ity of mcg/actuati 00:00: every 4 [place] as on inhaler 00 (four) Medical hours as Branch needed for Wheezing or Shortness of Breath. ondansetron 2020-0 Yes [id number] 4mg Take 1 [facility] (ZOFRAN 9-02 tablet by ity of ODT) 4 mg 00:00: mouth [place] disintegrat 00 every 8 Medic al ing tablet (eight) Branch hours as needed for Nausea and Vomiting (N/V). benzonatate 2020-0 Yes [id number] 100mg Take 1 [facility] 100 mg 9-02 capsule by ity of capsule 00:00: mouth 3 [place] 00 (three) Medical times Branch daily as needed for Cough. bromphenira 2020-0 Yes [id number] 5mL Take 5 mL [facility] mine-pseudo 9-02 by mouth 4 it y of ephedrine-D 00:00: (four[place] (BROMFED 00 times Medical DM) 2-30-10 daily as Bran ch mg/5 mL needed for syrup Congestion /Allergies or Cough. albuterol 2020-0 Yes [id number] 2{puff} Inhale 2 [facility] 90 9-02 Puffs ity of mcg/actuati 00:00: every 4 [place] as on inhaler 00 (four) Medical hours as Branch needed for Wheezing or Shortness of Breath. ondansetron 2020-0 Yes [id number] 4mg Take 1 [facility] (ZOFRAN 9-02 tablet by ity of ODT) 4 mg 00:00: mouth [place] disintegrat 00 every 8 Medic al ing tablet (eight) Branch hours as needed for Nausea and Vomiting (N/V). benzonatate 2020-0 Yes [id number] 100mg Take 1 [facility] 100 mg 9-02 capsule by ity of capsule 00:00: mouth 3 [place] 00 (three) Medical times Branch daily as needed for Cough. bromphenira 2020-0 Yes [id number] 5mL Take 5 mL [facility] mine-pseudo 9-02 by mouth 4 it y of ephedrine-D 00:00: (four[place] (BROMFED 00 times Medical DM) 2-30-10 daily as Bran ch mg/5 mL needed for syrup Congestion /Allergies or Cough. albuterol Yes [id number] 2{puff} Inhale 2 [facility] 90 9-02 Puffs ity of mcg/actuati 00:00: every 4 [place] as on inhaler 00 (four) Medical hours as Branch needed for Wheezing or Shortness of Breath. ondansetron Yes [id number] 4mg Take 1 [facility] (ZOFRAN 9-02 tablet by ity of ODT) 4 mg 00:00: mouth [place] disintegrat 00 every 8 Medic al ing tablet (eight) Branch hours as needed for Nausea and Vomiting (N/V). benzonatate Yes [id number] 100mg Take 1 [facility] 100 mg 9-02 capsule by ity of capsule 00:00: mouth 3 00 (three) Medical times Branch daily as needed for Cough. bromphenira Yes [id number] 5mL Take 5 mL [facility] mine-pseudo 9-02 by mouth 4 it y of ephedrine-D 00:00: (four[place] (BROMFED 00 times Medical DM) 2-30-10 daily as Bran ch mg/5 mL needed for syrup Congestion /Allergies or Cough. albuterol Yes [id number] 2{puff} Inhale 2 [facility] 90 9-02 Puffs ity of mcg/actuati 00:00: every 4 [place] as on inhaler 00 (four) Medical hours as Branch needed for Wheezing or Shortness of Breath. benzonatate Yes [id number] 100mg Take 1 [facility] 100 mg 9-02 capsule by ity of capsule 00:00: mouth 3 [place] 00 (three) Medical times Branch daily as needed for Cough. bromphenira 0 Yes [id number] 5mL Take 5 mL [facility]-pseud[facility] 9-02 by mouth 4 [facility] of ephedrine-D 00:00: (four[place] [facility] ([facility] times Medical DM) 2-30-10 daily as [facility] ch mg/5 mL needed for syrup Congestion /Allergies or Cough. albuterol Yes [id number] 2{puff} Inhale 2 [facility] 90 9-02 Puffs ity of mcg/actuati 00:00: every 4 [place] [facility] on inhaler 00 (four) Medical hours as Branch needed for Wheezing or Shortness of Breath. benzonatate 0 Yes [id number] 100mg Take 1 [facility] 100 mg 9-02 capsule by ity of capsule 00:00: mouth 3 [place] 00 (three) Medical times Branch daily as needed for Cough. bromphenira 0 Yes [id number] 5mL Take 5 mL [facility] mine-pseudo 9-02 by mouth 4 [facility] y of ephedrine-D 00:00: (four[place] [facility] ([facility] 00 times Medical DM) 2-30-10 daily as [facility] ch mg/5 mL needed for syrup Congestion /Allergies or Cough. albuterol 0 Yes [id number] 2{puff} Inhale 2 [facility] 90 9-02 Puffs ity of mcg/actuati 00:00: every 4 [place] on inhaler 00 (four) Medical hours as Branch needed for Wheezing or Shortness of Breath. benzonatate 0 Yes [id number] 100mg Take 1 [facility] 100 mg 9-02 capsule by ity of capsule 00:00: mouth 3 [place] 00 (three) Medical times Branch daily as needed for Cough. bromphenira 0 Yes [id number] 5mL Take 5 mL [facility] mine-pseudo 9-02 by mouth 4 it y of ephedrine-D 00:00: (four) [place] [facility] ([facility]OM[facility] 00 times Medical DM) 2-30-10 daily as [facility] ch mg/5 mL needed for syrup Congestion /Allergies or Cough. albuterol 0 Yes [id number] 2{puff} Inhale 2 [facility] 90 9-02 Puffs ity of mcg/actuati 00:00: every 4 [place] [facility] on inhaler 00 (four) Medical hours as Branch needed for Wheezing or Shortness of Breath. ondansetron 0 Yes [id number] 4mg Take 1 [facility] (ZOFRAN 9-02 tablet by ity of ODT) 4 mg 00:00: mouth [place] disintegrat 00 every 8 Medic al ing tablet (eight) Branch hours as needed for Nausea and Vomiting (N/V). benzonatate 0 Yes [id number] 100mg Take 1 [facility] 100 mg 9-02 capsule by ity of capsule 00:00: mouth 3 [place] 00 (three) Medical times Branch daily as needed for Cough. bromphenira 0 Yes [id number] 5mL Take 5 mL [facility] mine-pseudo 9-02 by mouth 4 [facility] y of ephedrine-D 00:00: (four) [place] [facility] ([facility] 00 times Medical DM) 2-30-10 daily as [facility] ch mg/5 mL needed for syrup Congestion /Allergies or Cough. albuterol 0 Yes [id number] 2{puff} Inhale 2 [facility] 90 9-02 Puffs ity of mcg/actuati 00:00: every 4 [place] [facility] inhaler 00 (four) Medical hours as Branch needed for Wheezing or Shortness of Breath. ondansetron 0 Yes [id number] 4mg Take 1 [facility] (ZOFRAN 9-02 tablet by ity of ODT) 4 mg 00:00: mouth [place] disintegrat 00 every 8 Medic al ing tablet (eight) Branch hours as needed for Nausea and Vomiting (N/V). benzonatate 0 Yes [id number] 100mg Take 1 [facility] 100 mg 9-02 capsule by ity of capsule 00:00: mouth 3 [place] 00 (three) Medical times Branch daily as needed for Cough. bromphenira 0 Yes [id number] 5mL Take 5 mL [facility] mine-pseudo 9-02 by mouth 4 [facility] y of ephedrine-D 00:00: (four) [place] [facility] ([facility] 00 times Medical DM) 2-30-10 daily as [facility] ch mg/5 mL needed for syrup Congestion /Allergies or Cough. albuterol 0 Yes [id number] 2{puff} Inhale 2 [facility] 90 9-02 Puffs ity of mcg/actuati 00:00: every 4 [place] [facility] inhaler 00 (four) Medical hours as Branch needed for Wheezing or Shortness of Breath. ondansetron 0 Yes [id number] 4mg Take 1 [facility] (ZOFRAN 9-02 tablet by ity of ODT) 4 mg 00:00: mouth [place] disintegrat 00 every 8 Medic al ing tablet (eight) Branch hours as needed for Nausea and Vomiting (N/V). benzonatate 2021-0 Yes [id number] 100mg Take 1 [facility] 100 mg 9-02 capsule by ity of capsule 00:00: mouth 3 [place] 00 (three) Medical times Branch daily as needed for Cough. bromphenira 0 Yes [id number] 5mL Take 5 mL [facility] mine-pseudo 9-02 by mouth 4 it y of ephedrine-D 00:00: (four) [place] [facility] ([facility] 00 times Medical DM) 2-30-10 daily as [facility] ch mg/5 mL needed for syrup Congestion /Allergies or Cough. albuterol Yes [id number] 2{puff} Inhale 2 [facility] 90 9-02 Puffs ity of mcg/actuati 00:00: every 4 [place] [facility] on inhaler 00 (four) Medical hours as Branch needed for Wheezing or Shortness of Breath. ondansetron 0 Yes [id number] 4mg Take 1 [facility] (ZOFRAN 9-02 tablet by ity of ODT) 4 mg 00:00: mouth [place] disintegrat 00 every 8 Medic al ing tablet (eight) Branch hours as needed for Nausea and Vomiting (N/V). benzonatate 0 Yes [id number] 100mg Take 1 [facility] 100 mg 9-02 capsule by ity of capsule 00:00: mouth 3 [place] 00 (three) Medical times Branch daily as needed for Cough. bromphenira 0 Yes [id number] 5mL Take 5 mL [facility] mine-pseudo 9-02 by mouth 4 [facility] y of ephedrine-D 00:00: (four) [place] [facility] ([facility]OM[facility] 00 times Medical DM) 2-30-10 daily as [facility] ch mg/5 mL needed for syrup Congestion /Allergies or Cough. albuterol 0 Yes [id number] 2{puff} Inhale 2 [facility] 90 9-02 Puffs ity of mcg/actuati 00:00: every 4 [place] [facility] inhaler 00 (four) Medical hours as Branch needed for Wheezing or Shortness of Breath. ondansetron 0 Yes [id number] 4mg Take 1 [facility] (ZOFRAN 9-02 tablet by ity of ODT) 4 mg 00:00: mouth [place] disintegrat 00 every 8 Medic al ing tablet (eight) Branch hours as needed for Nausea and Vomiting (N/V). benzonatate 0 Yes [id number] 100mg Take 1 [facility] 100 mg 9-02 capsule by ity of capsule 00:00: mouth 3 [place] 00 (three) Medical times Branch daily as needed for Cough. bromphenira 0 Yes [id number] 5mL Take 5 mL [facility] mine-pseudo 9-02 by mouth 4 it y of ephedrine-D 00:00: (four) [place] [facility] (BROMF[facility] 00 times Medical DM) 2-30-10 daily as [facility] ch mg/5 mL needed for syrup Congestion /Allergies or Cough. albuterol 0 Yes [id number] 2{puff} Inhale 2 [facility] 90 9-02 Puffs ity of mcg/actuati 00:00: every 4 [place] on inhaler 00 (four) Medical hours as Branch needed for Wheezing or Shortness of Breath. ondansetron 0 Yes [id number] 4mg Take 1 [facility] (ZOFRAN 9-02 tablet by ity of ODT) 4 mg 00:00: mouth [place] disintegrat 00 every 8 Medic al ing tablet (eight) Branch hours as needed for Nausea and Vomiting (N/V). benzonatate 0 Yes [id number] 100mg Take 1 [facility] 100 mg 9-02 capsule by ity of capsule 00:00: mouth 3 [place] 00 (three) Medical times Branch daily as needed for Cough. bromphenira 0 Yes [id number] 5mL Take 5 mL [facility] mine-pseudo 9-02 by mouth 4 it y of ephedrine-D 00:00: (four) [place] [facility] ([facility]OM[facility] 00 times Medical DM) 2-30-10 daily as [facility] ch mg/5 mL needed for syrup Congestion /Allergies or Cough. albuterol 0 Yes [id number] 2{puff} Inhale 2 [facility] 90 9-02 Puffs ity of mcg/actuati 00:00: every 4 [place] on inhaler 00 (four) Medical hours as Branch needed for Wheezing or Shortness of Breath. ondansetron 0 Yes [id number] 4mg Take 1 [facility] (ZOFRAN 9-02 tablet by ity of ODT) 4 mg 00:00: mouth [place] disintegrat 00 every 8 Medic al ing tablet (eight) Branch hours as needed for Nausea and Vomiting (N/V). benzonatate 2020-0 Yes [id number] 100mg Take 1 [facility] 100 mg 9-02 capsule by ity of capsule 00:00: mouth 3 [place] 00 (three) Medical times Branch daily as needed for Cough. bromphenira 2020-0 Yes [id number] 5mL Take 5 mL [facility] mine-pseudo 9-02 by mouth 4 it y of ephedrine-D 00:00: (four) [place] [facility] (BROMF[facility] 00 times Medical DM) 2-30-10 daily as [facility] ch mg/5 mL needed for syrup Congestion /Allergies or Cough. albuterol 2020-0 Yes [id number] 2{puff} Inhale 2 [facility] 90 9-02 Puffs ity of mcg/actuati 00:00: every 4 [place] on inhaler 00 (four) Medical hours as Branch needed for Wheezing or Shortness of Breath. ondansetron 2020-0 Yes [id number] 4mg Take 1 [facility] (ZOFRAN 9-02 tablet by ity of ODT) 4 mg 00:00: mouth [place] disintegrat 00 every 8 Medic al ing tablet (eight) Branch hours as needed for Nausea and Vomiting (N/V). benzonatate 2020-0 Yes [id number] 100mg Take 1 [facility] 100 mg 9-02 capsule by ity of capsule 00:00: mouth 3 [place] 00 (three) Medical times Branch daily as needed for Cough. bromphenira 2020-0 Yes [id number] 5mL Take 5 mL [facility] mine-pseudo 9-02 by mouth 4 it y of ephedrine-D 00:00: (four) [place] [facility] ([facility]OMF[facility] 00 times Medical DM) 2-30-10 daily as [facility] ch mg/5 mL needed for syrup Congestion /Allergies or Cough. albuterol 2020-0 Yes [id number] 2{puff} Inhale 2 [facility] 90 9-02 Puffs ity of mcg/actuati 00:00: every 4 [place] on inhaler 00 (four) Medical hours as Branch needed for Wheezing or Shortness of Breath. ondansetron 2020-0 Yes [id number] 4mg Take 1 [facility] (ZOFRAN 9-02 tablet by ity of ODT) 4 mg 00:00: mouth [place] disintegrat 00 every 8 Medic al ing tablet (eight) Branch hours as needed for Nausea and Vomiting (N/V). benzonatate 0 Yes [id number] 100mg Take 1 [facility] 100 mg 9-02 capsule by ity of capsule 00:00: mouth 3 [place] 00 (three) Medical times Branch daily as needed for Cough. bromphenira 2020-0 Yes [id number] 5mL Take 5 mL [facility] mine-pseudo 9-02 by mouth 4 it y of ephedrine-D 00:00: (four) [place] [facility] (BROMFED 00 times Medical DM) 2-30-10 daily as [facility] ch mg/5 mL needed for syrup Congestion /Allergies or Cough. albuterol 0 Yes [id number] 2{puff} Inhale 2 [facility] 90 9-02 Puffs ity of mcg/actuati 00:00: every 4 [place] [facility] on inhaler 00 (four) Medical hours as Branch needed for Wheezing or Shortness of Breath. ondansetron 0 Yes [id number] 4mg Take 1 [facility] (ZOFRAN 9-02 tablet by ity of ODT) 4 mg 00:00: mouth [place] disintegrat 00 every 8 Medic al ing tablet (eight) Branch hours as needed for Nausea and Vomiting (N/V). benzonatate 0 Yes [id number] 100mg Take 1 [facility] 100 mg 9-02 capsule by ity of capsule 00:00: mouth 3 [place] 00 (three) Medical times Branch daily as needed for Cough. bromphenira 0 Yes [id number] 5mL Take 5 mL [facility] mine-pseudo 9-02 by mouth 4 it y of ephedrine-D 00:00: (four) [place] [facility] (BROMFED 00 times Medical DM) 2-30-10 daily as [facility] ch mg/5 mL needed for syrup Congestion /Allergies or Cough. albuterol 0 Yes [id number] 2{puff} Inhale 2 [facility] 90 9-02 Puffs ity of mcg/actuati 00:00: every 4 [place] [facility] on inhaler 00 (four) Medical hours as Branch needed for Wheezing or Shortness of Breath. ondansetron 0 Yes [id number] 4mg Take 1 [facility] (ZOFRAN 9-02 tablet by ity of ODT) 4 mg 00:00: mouth [place] disintegrat 00 every 8 Medic al ing tablet (eight) Branch hours as needed for Nausea and Vomiting (N/V). benzonatate 2020-0 Yes [id number] 100mg Take 1 [facility] 100 mg 9-02 capsule by ity of capsule 00:00: mouth 3 [place] 00 (three) Medical times Branch daily as needed for Cough. bromphenira 2020-0 Yes [id number] 5mL Take 5 mL [facility] mine-pseudo 9-02 by mouth 4 it y of ephedrine-D 00:00: (four) [place] [facility] (BROMFED 00 times Medical DM) 2-30-10 daily as [facility] ch mg/5 mL needed for syrup Congestion /Allergies or Cough. albuterol 2020-0 Yes [id number] 2{puff} Inhale 2 [facility] 90 9-02 Puffs ity of mcg/actuati 00:00: every 4 [place] [facility] on inhaler 00 (four) Medical hours as Branch needed for Wheezing or Shortness of Breath. ondansetron 0 Yes [id number] 4mg Take 1 [facility] (ZOFRAN 9-02 tablet by ity of ODT) 4 mg 00:00: mouth [place] disintegrat 00 every 8 Medic al ing tablet (eight) Branch hours as needed for Nausea and Vomiting (N/V). benzonatate 0 Yes [id number] 100mg Take 1 [facility] 100 mg 9-02 capsule by ity of capsule 00:00: mouth 3 [place] 00 (three) Medical times Branch daily as needed for Cough. bromphenira 2020-0 Yes [id number] 5mL Take 5 mL [facility] mine-pseudo 9-02 by mouth 4 it y of ephedrine-D 00:00: (four) [place] [facility] (BROMFED 00 times Medical DM) 2-30-10 daily as [facility] ch mg/5 mL needed for syrup Congestion /Allergies or Cough. albuterol 2020-0 Yes [id number] 2{puff} Inhale 2 [facility] 90 9-02 Puffs ity of mcg/actuati 00:00: every 4 [place] [facility] on inhaler 00 (four) Medical hours as Branch needed for Wheezing or Shortness of Breath. ondansetron 2020-0 Yes [id number] 4mg Take 1 [facility] (ZOFRAN 9-02 tablet by ity of ODT) 4 mg 00:00: mouth [place] disintegrat 00 every 8 Medic al ing tablet (eight) Branch hours as needed for Nausea and Vomiting (N/V). benzonatate 2020-0 Yes [id number] 100mg Take 1 [facility] 100 mg 9-02 capsule by ity of capsule 00:00: mouth 3 [place] 00 (three) Medical times Branch daily as needed for Cough. bromphenira 2020-0 Yes [id number] 5mL Take 5 mL [facility] mine-pseudo 9-02 by mouth 4 it y of ephedrine-D 00:00: (four) [place] [facility] (BROMFED 00 times Medical DM) 2-30-10 daily as [facility] ch mg/5 mL needed for syrup Congestion /Allergies or Cough. albuterol 2020-0 Yes [id number] 2{puff} Inhale 2 [facility] 90 9-02 Puffs ity of mcg/actuati 00:00: every 4 [place] [facility] on inhaler 00 (four) Medical hours as Branch needed for Wheezing or Shortness of Breath. ondansetron 2020-0 Yes [id number] 4mg Take 1 [facility] (ZOFRAN 9-02 tablet by ity of ODT) 4 mg 00:00: mouth [place] disintegrat 00 every 8 Medic al ing tablet (eight) Branch hours as needed for Nausea and Vomiting (N/V). benzonatate 2020-0 Yes [id number] 100mg Take 1 [facility] 100 mg 9-02 capsule by ity of capsule 00:00: mouth 3 [place] 00 (three) Medical times Branch daily as needed for Cough. bromphenira 2020-0 Yes [id number] 5mL Take 5 mL [facility] mine-pseudo 9-02 by mouth 4 it y of ephedrine-D 00:00: (four) [place] [facility] (BROMFED 00 times Medical DM) 2-30-10 daily as [facility] ch mg/5 mL needed for syrup Congestion /Allergies or Cough. albuterol 2020-0 Yes [id number] 2{puff} Inhale 2 [facility] 90 9-02 Puffs ity of mcg/actuati 00:00: every 4 [place] [facility] on inhaler 00 (four) Medical hours as Branch needed for Wheezing or Shortness of Breath. ondansetron 2020-0 Yes [id number] 4mg Take 1 [facility] (ZOFRAN 9-02 tablet by ity of ODT) 4 mg 00:00: mouth [place] disintegrat 00 every 8 Medic al ing tablet (eight) Branch hours as needed for Nausea and Vomiting (N/V). benzonatate 2020-0 Yes [id number] 100mg Take 1 [facility] 100 mg 9-02 capsule by ity of capsule 00:00: mouth 3 [place] 00 (three) Medical times Branch daily as needed for Cough. bromphenira 2020-0 Yes [id number] 5mL Take 5 mL [facility] mine-pseudo 9-02 by mouth 4 it y of ephedrine-D 00:00: (four) [place] [facility] (BROMFED 00 times Medical DM) 2-30-10 daily as [facility] ch mg/5 mL needed for syrup Congestion /Allergies or Cough. albuterol 2020-0 Yes [id number] 2{puff} Inhale 2 [facility] 90 9-02 Puffs ity of mcg/actuati 00:00: every 4 [place] [facility] on inhaler 00 (four) Medical hours as Branch needed for Wheezing or Shortness of Breath. ondansetron 2020-0 Yes [id number] 4mg Take 1 [facility] (ZOFRAN 9-02 tablet by ity of ODT) 4 mg 00:00: mouth [place] disintegrat 00 every 8 Medic al ing tablet (eight) Branch hours as needed for Nausea and Vomiting (N/V). benzonatate 2020-0 Yes [id number] 100mg Take 1 [facility] 100 mg 9-02 capsule by ity of capsule 00:00: mouth 3 [place] 00 (three) Medical times Branch daily as needed for Cough. bromphenira 2020-0 Yes [id number] 5mL Take 5 mL [facility] mine-pseudo 9-02 by mouth 4 it y of ephedrine-D 00:00: (four) [place] [facility] (BROMFED 00 times Medical DM) 2-30-10 daily as [facility] ch mg/5 mL needed for syrup Congestion /Allergies or Cough. albuterol 2020-0 Yes [id number] 2{puff} Inhale 2 [facility] 90 9-02 Puffs ity of mcg/actuati 00:00: every 4 [place] [facility] on inhaler 00 (four) Medical hours as Branch needed for Wheezing or Shortness of Breath. ondansetron 2020-0 Yes [id number] 4mg Take 1 [facility] (ZOFRAN 9-02 tablet by ity of ODT) 4 mg 00:00: mouth [place] disintegrat 00 every 8 Medic al ing tablet (eight) Branch hours as needed for Nausea and Vomiting (N/V). benzonatate 2020-0 Yes [id number] 100mg Take 1 [facility] 100 mg 9-02 capsule by ity of capsule 00:00: mouth 3 [place] 00 (three) Medical times Branch daily as needed for Cough. bromphenira 0 Yes [id number] 5mL Take 5 mL [facility] mine-pseudo 9-02 by mouth 4 it y of ephedrine-D 00:00: (four) [place] [facility] (BROMFED 00 times Medical DM) 2-30-10 daily as [facility] ch mg/5 mL needed for syrup Congestion /Allergies or Cough. albuterol Yes [id number] 2{puff} Inhale 2 [facility] 90 9-02 Puffs ity of mcg/actuati 00:00: every 4 [place] [facility] on inhaler 00 (four) Medical hours as Branch needed for Wheezing or Shortness of Breath. ondansetron Yes [id number] 4mg Take 1 [facility] (ZOFRAN 9-02 tablet by ity of ODT) 4 mg 00:00: mouth [place] disintegrat 00 every 8 Medic al ing tablet (eight) Branch hours as needed for Nausea and Vomiting (N/V). benzonatate 0 Yes [id number] 100mg Take 1 [facility] 100 mg 9-02 capsule by ity of capsule 00:00: mouth 3 [place] 00 (three) Medical times Branch daily as needed for Cough. bromphenira 0 Yes [id number] 5mL Take 5 mL [facility] mine-pseudo 9-02 by mouth 4 it y of ephedrine-D 00:00: (four) [place] [facility] (BROMFED 00 times Medical DM) 2-30-10 daily as [facility] ch mg/5 mL needed for syrup Congestion /Allergies or Cough. albuterol 0 Yes [id number] 2{puff} Inhale 2 [facility] 90 9-02 Puffs ity of mcg/actuati 00:00: every 4 [place] [facility] on inhaler 00 (four) Medical hours as Branch needed for Wheezing or Shortness of Breath. ondansetron 2021-0 Yes [id number] 4mg Take 1 [facility] (ZOFRAN 9-02 tablet by ity of ODT) 4 mg 00:00: mouth [place] disintegrat 00 every 8 Medic al ing tablet (eight) Branch hours as needed for Nausea and Vomiting (N/V). benzonatate 0 Yes [id number] 100mg Take 1 [facility] 100 mg 9-02 capsule by ity of capsule 00:00: mouth 3 [place] 00 (three) Medical times Branch daily as needed for Cough. bromphenira 0 Yes [id number] 5mL Take 5 mL [facility] mine-pseudo 9-02 by mouth 4 it y of ephedrine-D 00:00: (four) [place] [facility] (BROMFED 00 times Medical DM) 2-30-10 daily as [facility] ch mg/5 mL needed for syrup Congestion /Allergies or Cough. albuterol Yes [id number] 2{puff} Inhale 2 [facility] 90 9-02 Puffs ity of mcg/actuati 00:00: every 4 [place] [facility] on inhaler 00 (four) Medical hours as Branch needed for Wheezing or Shortness of Breath. ondansetron 0 Yes [id number] 4mg Take 1 [facility] (ZOFRAN 9-02 tablet by ity of ODT) 4 mg 00:00: mouth [place] disintegrat 00 every 8 Medic al ing tablet (eight) Branch hours as needed for Nausea and Vomiting (N/V). benzonatate 0 Yes [id number] 100mg Take 1 [facility] 100 mg 9-02 capsule by ity of capsule 00:00: mouth 3 [place] 00 (three) Medical times Branch daily as needed for Cough. bromphenira 0 Yes [id number] 5mL Take 5 mL [facility] mine-pseudo 9-02 by mouth 4 it y of ephedrine-D 00:00: (four) [place] [facility] (BROMFED 00 times Medical DM) 2-30-10 daily as [facility] ch mg/5 mL needed for syrup Congestion /Allergies or Cough. albuterol Yes [id number] 2{puff} Inhale 2 [facility] 90 9-02 Puffs ity of mcg/actuati 00:00: every 4 [place] [facility] on inhaler 00 (four) Medical hours as Branch needed for Wheezing or Shortness of Breath. ondansetron 2020-0 Yes [id number] 4mg Take 1 [facility] (ZOFRAN 9-02 tablet by ity of ODT) 4 mg 00:00: mouth [place] disintegrat 00 every 8 Medic al ing tablet (eight) Branch hours as needed for Nausea and Vomiting (N/V). benzonatate 2020-0 Yes [id number] 100mg Take 1 [facility] 100 mg 9-02 capsule by ity of capsule 00:00: mouth 3 [place] 00 (three) Medical times Branch daily as needed for Cough. bromphenira 2020-0 Yes [id number] 5mL Take 5 mL [facility] mine-pseudo 9-02 by mouth 4 it y of ephedrine-D 00:00: (four) [place] [facility] (BROMFED times Medical DM) 2-30-10 daily as [facility] ch mg/5 mL needed for syrup Congestion /Allergies or Cough. albuterol Yes [id number] 2{puff} Inhale 2 [facility] 90 9-02 Puffs ity of mcg/actuati 00:00: every 4 [place] [facility] on inhaler 00 (four) Medical hours as Branch needed for Wheezing or Shortness of Breath. ondansetron 0 Yes [id number] 4mg Take 1 [facility] (ZOFRAN 9-02 tablet by ity of ODT) 4 mg 00:00: mouth [place] disintegrat 00 every 8 Medic al ing tablet (eight) Branch hours as needed for Nausea and Vomiting (N/V). benzonatate 2020-0 Yes [id number] 100mg Take 1 [facility] 100 mg 9-02 capsule by ity of capsule 00:00: mouth 3 [place] (three) Medical times Branch daily as needed for Cough. bromphenira 0 Yes [id number] 5mL Take 5 mL [facility] mine-pseudo 9-02 by mouth 4 it y of ephedrine-D 00:00: (four) [place] [facility] (BROMFED 00 times Medical DM) 2-30-10 daily as [facility] ch mg/5 mL needed for syrup Congestion /Allergies or Cough. albuterol 2020-0 Yes [id number] 2{puff} Inhale 2 [facility] 90 9-02 Puffs ity of mcg/actuati 00:00: every 4 [place] [facility] on inhaler 00 (four) Medical hours as Branch needed for Wheezing or Shortness of Breath. ondansetron 2020-0 Yes [id number] 4mg Take 1 [facility] (ZOFRAN 9-02 tablet by ity of ODT) 4 mg 00:00: mouth [place] disintegrat 00 every 8 Medic al ing tablet (eight) Branch hours as needed for Nausea and Vomiting (N/V). benzonatate 2020-0 Yes [id number] 100mg Take 1 [facility] 100 mg 9-02 capsule by ity of capsule 00:00: mouth 3 [place] 00 (three) Medical times Branch daily as needed for Cough. bromphenira 2020-0 Yes [id number] 5mL Take 5 mL [facility] mine-pseudo 9-02 by mouth 4 it y of ephedrine-D 00:00: (four) [place] [facility] (BROMFED 00 times Medical DM) 2-30-10 daily as [facility] ch mg/5 mL needed for syrup Congestion /Allergies or Cough. albuterol 2020-0 Yes [id number] 2{puff} Inhale 2 [facility] 90 9-02 Puffs ity of mcg/actuati 00:00: every 4 [place] [facility] on inhaler 00 (four) Medical hours as Branch needed for Wheezing or Shortness of Breath. ondansetron 2020-0 Yes [id number] 4mg Take 1 [facility] (ZOFRAN 9-02 tablet by ity of ODT) 4 mg 00:00: mouth [place] disintegrat 00 every 8 Medic al ing tablet (eight) Branch hours as needed for Nausea and Vomiting (N/V). benzonatate 2020-0 Yes [id number] 100mg Take 1 [facility] 100 mg 9-02 capsule by ity of capsule 00:00: mouth 3 [place] 00 (three) Medical times Branch daily as needed for Cough. bromphenira 2020-0 Yes [id number] 5mL Take 5 mL [facility] mine-pseudo 9-02 by mouth 4 it y of ephedrine-D 00:00: (four) [place] [facility] (BROMFED 00 times Medical DM) 2-30-10 daily as [facility] ch mg/5 mL needed for syrup Congestion /Allergies or Cough. albuterol 2020-0 Yes [id number] 2{puff} Inhale 2 [facility] 90 9-02 Puffs ity of mcg/actuati 00:00: every 4 [place] [facility] on inhaler 00 (four) Medical hours as Branch needed for Wheezing or Shortness of Breath. ondansetron 2020-0 Yes [id number] 4mg Take 1 [facility] (ZOFRAN 9-02 tablet by ity of ODT) 4 mg 00:00: mouth [place] disintegrat 00 every 8 Medic al ing tablet (eight) Branch hours as needed for Nausea and Vomiting (N/V). benzonatate 2020-0 Yes [id number] 100mg Take 1 [facility] 100 mg 9-02 capsule by ity of capsule 00:00: mouth 3 [place] 00 (three) Medical times Branch daily as needed for Cough. bromphenira 2020-0 Yes [id number] 5mL Take 5 mL [facility] mine-pseudo 9-02 by mouth 4 it y of ephedrine-D 00:00: (four) [place] [facility] (BROMFED 00 times Medical DM) 2-30-10 daily as [facility] ch mg/5 mL needed for syrup Congestion /Allergies or Cough. albuterol 2020-0 Yes [id number] 2{puff} Inhale 2 [facility] 90 9-02 Puffs ity of mcg/actuati 00:00: every 4 [place] [facility] on inhaler 00 (four) Medical hours as Branch needed for Wheezing or Shortness of Breath. ondansetron 2020-0 Yes [id number] 4mg Take 1 [facility] (ZOFRAN 9-02 tablet by ity of ODT) 4 mg 00:00: mouth [place] disintegrat 00 every 8 Medic al ing tablet (eight) Branch hours as needed for Nausea and Vomiting (N/V). benzonatate 2020-0 Yes [id number] 100mg Take 1 [facility] 100 mg 9-02 capsule by ity of capsule 00:00: mouth 3 [place] 00 (three) Medical times Branch daily as needed for Cough. bromphenira 2020-0 Yes [id number] 5mL Take 5 mL [facility] mine-pseudo 9-02 by mouth 4 it y of ephedrine-D 00:00: (four) [place] [facility] (BROMFED 00 times Medical DM) 2-30-10 daily as [facility] ch mg/5 mL needed for syrup Congestion /Allergies or Cough. albuterol 2020-0 Yes [id number] 2{puff} Inhale 2 [facility] 90 9-02 Puffs ity of mcg/actuati 00:00: every 4 [place] [facility] on inhaler 00 (four) Medical hours as Branch needed for Wheezing or Shortness of Breath. ondansetron 2020-0 Yes [id number] 4mg Take 1 [facility] (ZOFRAN 9-02 tablet by ity of ODT) 4 mg 00:00: mouth [place] disintegrat 00 every 8 Medic al ing tablet (eight) Branch hours as needed for Nausea and Vomiting (N/V). benzonatate 2020-0 Yes [id number] 100mg Take 1 [facility] 100 mg 9-02 capsule by ity of capsule 00:00: mouth 3 [place] 00 (three) Medical times Branch daily as needed for Cough. bromphenira 2020-0 Yes [id number] 5mL Take 5 mL [facility] mine-pseudo 9-02 by mouth 4 it y of ephedrine-D 00:00: (four) [place] [facility] (BROMFED 00 times Medical DM) 2-30-10 daily as Bran ch mg/5 mL needed for syrup Congestion /Allergies or Cough. albuterol 2020-0 Yes [id number] 2{puff} Inhale 2 [facility] 90 9-02 Puffs ity of mcg/actuati 00:00: every 4 [place] [facility] on inhaler 00 (four) Medical hours as Branch needed for Wheezing or Shortness of Breath. ondansetron 2020-0 Yes [id number] 4mg Take 1 [facility] (ZOFRAN 9-02 tablet by ity of ODT) 4 mg 00:00: mouth [place] disintegrat 00 every 8 Medic al ing tablet (eight) Branch hours as needed for Nausea and Vomiting (N/V). benzonatate 2020-0 Yes [id number] 100mg Take 1 [facility] 100 mg 9-02 capsule by ity of capsule 00:00: mouth 3 [place] 00 (three) Medical times Branch daily as needed for Cough. bromphenira 2020-0 Yes [id number] 5mL Take 5 mL [facility]-pseud[facility] 9-02 by mouth 4 [facility] ephedrine-D 00:00: (four[place] [facility] ([facility] times Medical DM) 2-30-10 daily as Bran ch mg/5 mL needed for syrup Congestion /Allergies or Cough. albuterol 2020-0 Yes [id number] 2{puff} Inhale 2 [facility] 90 9-02 Puffs ity of mcg/actuati 00:00: every 4 [place] [facility] on inhaler 00 (four) Medical hours as Branch needed for Wheezing or Shortness of Breath. ondansetron 2020-0 Yes [id number] 4mg Take 1 [facility] (ZOFRAN 9-02 tablet by ity of ODT) 4 mg 00:00: mouth [place] disintegrat 00 every 8 Medic al ing tablet (eight) Branch hours as needed for Nausea and Vomiting (N/V). benzonatate 2020-0 Yes [id number] 100mg Take 1 [facility] 100 mg 9-02 capsule by ity of capsule 00:00: mouth 3 [place] 00 (three) Medical times Branch daily as needed for Cough. bromphenira 2020-0 Yes [id number] 5mL Take 5 mL [facility] mine-pseudo 9- by mouth 4 [facility] y of ephedrine-D 00:00: (four[place] [facility] ([facility] times Medical DM) 2-30-10 daily as Bran ch mg/5 mL needed for syrup Congestion /Allergies or Cough. albuterol 2020-0 Yes [id number] 2{puff} Inhale 2 [facility] 90 9-02 Puffs ity of mcg/actuati 00:00: every 4 [place] [facility] inhaler 00 (four) Medical hours as Branch needed for Wheezing or Shortness of Breath. ondansetron 2020-0 Yes [id number] 4mg Take 1 [facility] (ZOFRAN 9-02 tablet by ity of ODT) 4 mg 00:00: mouth [place] disintegrat 00 every 8 Medic al ing tablet (eight) Branch hours as needed for Nausea and Vomiting (N/V). benzonatate 2020-0 Yes [id number] 100mg Take 1 [facility] 100 mg 9-02 capsule by ity of capsule 00:00: mouth 3 [place] 00 (three) Medical times Branch daily as needed for Cough. bromphenira 2020-0 Yes [id number] 5mL Take 5 mL [facility] mine-pseudo 9-02 by mouth 4 [facility] y of ephedrine-D 00:00: (four[place] [facility] ([facility]OMF[facility] 00 times Medical DM) 2-30-10 daily as Bran ch mg/5 mL needed for syrup Congestion /Allergies or Cough. albuterol 2020-0 Yes [id number] 2{puff} Inhale 2 [facility] 90 9-02 Puffs ity of mcg/actuati 00:00: every 4 [place] [facility] inhaler 00 (four) Medical hours as Branch needed for Wheezing or Shortness of Breath. ondansetron 2020-0 Yes [id number] 4mg Take 1 [facility] (ZOFRAN 9-02 tablet by ity of ODT) 4 mg 00:00: mouth [place] disintegrat 00 every 8 Medic al ing tablet (eight) Branch hours as needed for Nausea and Vomiting (N/V). benzonatate 2020-0 Yes [id number] 100mg Take 1 [facility] 100 mg 9-02 capsule by ity of capsule 00:00: mouth 3 [place] 00 (three) Medical times Branch daily as needed for Cough. bromphenira 2020-0 Yes [id number] 5mL Take 5 mL [facility] mine-pseudo 9-02 by mouth 4 [facility] y of ephedrine-D 00:00: (four[place] [facility] ([facility]OMF[facility] 00 times Medical DM) 2-30-10 daily as Bran ch mg/5 mL needed for syrup Congestion /Allergies or Cough. albuterol 0 Yes [id number] 2{puff} Inhale 2 [facility] 90 9-02 Puffs ity of mcg/actuati 00:00: every 4 [place] [facility] inhaler 00 (four) Medical hours as Branch needed for Wheezing or Shortness of Breath. ondansetron 0 Yes [id number] 4mg Take 1 [facility] (ZOFRAN 9-02 tablet by ity of ODT) 4 mg 00:00: mouth [place] disintegrat 00 every 8 Medic al ing tablet (eight) Branch hours as needed for Nausea and Vomiting (N/V). benzonatate 2020-0 Yes [id number] 100mg Take 1 [facility] 100 mg 9-02 capsule by ity of capsule 00:00: mouth 3 [place] 00 (three) Medical times Branch daily as needed for Cough. bromphenira 2020-0 Yes [id number] 5mL Take 5 mL [facility] mine-pseudo 9-02 by mouth 4 [facility] y of ephedrine-D 00:00: (four) [place] [facility] ([facility] 00 times Medical DM) 2-30-10 daily as Bran ch mg/5 mL needed for syrup Congestion /Allergies or Cough. albuterol 2020-0 Yes [id number] 2{puff} Inhale 2 [facility] 90 9-02 Puffs ity of mcg/actuati 00:00: every 4 [place] [facility] inhaler 00 (four) Medical hours as Branch needed for Wheezing or Shortness of Breath. ondansetron 0 Yes [id number] 4mg Take 1 [facility] (ZOFRAN 9-02 tablet by ity of ODT) 4 mg 00:00: mouth [place] disintegrat 00 every 8 Medic al ing tablet (eight) Branch hours as needed for Nausea and Vomiting (N/V). benzonatate 0 Yes [id number] 100mg Take 1 [facility] 100 mg 9-02 capsule by ity of capsule 00:00: mouth 3 [place] 00 (three) Medical times Branch daily as needed for Cough. bromphenira 0 Yes [id number] 5mL Take 5 mL [facility] mine-pseudo 9- by mouth 4 [facility] y of ephedrine-D 00:00: (four) [place] [facility] ([facility]OMF[facility] 00 times Medical DM) 2-30-10 daily as Bran ch mg/5 mL needed for syrup Congestion /Allergies or Cough. albuterol 0 Yes [id number] 2{puff} Inhale 2 [facility] 90 9-02 Puffs ity of mcg/actuati 00:00: every 4 [place] [facility] inhaler 00 (four) Medical hours as Branch needed for Wheezing or Shortness of Breath. ondansetron 0 Yes [id number] 4mg Take 1 [facility] (ZOFRAN 9-02 tablet by ity of ODT) 4 mg 00:00: mouth [place] disintegrat 00 every 8 Medic al ing tablet (eight) Branch hours as needed for Nausea and Vomiting (N/V). benzonatate 0 Yes [id number] 100mg Take 1 [facility] 100 mg 9-02 capsule by ity of capsule 00:00: mouth 3 [place] 00 (three) Medical times Branch daily as needed for Cough. bromphenira 0 Yes [id number] 5mL Take 5 mL [facility] mine-pseudo 9-02 by mouth 4 [facility] y of ephedrine-D 00:00: (four) [place] [facility] ([facility] 00 times Medical DM) 2-30-10 daily as Bran ch mg/5 mL needed for syrup Congestion /Allergies or Cough. albuterol 2021-0 Yes [id number] 2{puff} Inhale 2 [facility] 90 9-02 Puffs ity of mcg/actuati 00:00: every 4 [place] inhaler 00 (four) Medical hours as Branch needed for Wheezing or Shortness of Breath. ondansetron 0 Yes [id number] 4mg Take 1 [facility] (ZOFRAN 9-02 tablet by ity of ODT) 4 mg 00:00: mouth [place] disintegrat 00 every 8 Medic al ing tablet (eight) Branch hours as needed for Nausea and Vomiting (N/V). benzonatate 0 Yes [id number] 100mg Take 1 [facility] 100 mg 9-02 capsule by ity of capsule 00:00: mouth 3 [place] 00 (three) Medical times Branch daily as needed for Cough. bromphenira 0 Yes [id number] 5mL Take 5 mL [facility] mine-pseudo 9- by mouth 4 [facility] y of ephedrine-D 00:00: (four) [place] [facility] ([facility] 00 times Medical DM) 2-30-10 daily as Bran ch mg/5 mL needed for syrup Congestion /Allergies or Cough. albuterol 0 Yes [id number] 2{puff} Inhale 2 [facility] 90 9-02 Puffs ity of mcg/actuati 00:00: every 4 [place] inhaler 00 (four) Medical hours as Branch needed for Wheezing or Shortness of Breath. ondansetron 0 Yes [id number] 4mg Take 1 [facility] (ZOFRAN 9-02 tablet by ity of ODT) 4 mg 00:00: mouth [place] disintegrat 00 every 8 Medic al ing tablet (eight) Branch hours as needed for Nausea and Vomiting (N/V). benzonatate 0 Yes [id number] 100mg Take 1 [facility] 100 mg 9-02 capsule by ity of capsule 00:00: mouth 3 [place] 00 (three) Medical times Branch daily as needed for Cough. bromphenira 2020-0 Yes [id number] 5mL Take 5 mL [facility] mine-pseudo 9-02 by mouth 4 it y of ephedrine-D 00:00: (four) [place] [facility] ([facility] 00 times Medical DM) 2-30-10 daily as Bran ch mg/5 mL needed for syrup Congestion /Allergies or Cough. albuterol 2020-0 Yes [id number] 2{puff} Inhale 2 [facility] 90 9-02 Puffs ity of mcg/actuati 00:00: every 4 [place] inhaler 00 (four) Medical hours as Branch needed for Wheezing or Shortness of Breath. ondansetron 2020-0 Yes [id number] 4mg Take 1 [facility] (ZOFRAN 9-02 tablet by ity of ODT) 4 mg 00:00: mouth [place] disintegrat 00 every 8 Medic al ing tablet (eight) Branch hours as needed for Nausea and Vomiting (N/V). benzonatate 2020-0 Yes [id number] 100mg Take 1 [facility] 100 mg 9-02 capsule by ity of capsule 00:00: mouth 3 [place] 00 (three) Medical times Branch daily as needed for Cough. bromphenira 2020-0 Yes [id number] 5mL Take 5 mL [facility] mine-pseudo 9-02 by mouth 4 it y of ephedrine-D 00:00: (four) [place] [facility] ([facility] 00 times Medical DM) 2-30-10 daily as Bran ch mg/5 mL needed for syrup Congestion /Allergies or Cough. albuterol 0 Yes [id number] 2{puff} Inhale 2 [facility] 90 9-02 Puffs ity of mcg/actuati 00:00: every 4 [place] inhaler 00 (four) Medical hours as Branch needed for Wheezing or Shortness of Breath. ondansetron 2020-0 Yes [id number] 4mg Take 1 [facility] (ZOFRAN 9-02 tablet by ity of ODT) 4 mg 00:00: mouth [place] disintegrat 00 every 8 Medic al ing tablet (eight) Branch hours as needed for Nausea and Vomiting (N/V). benzonatate 2020-0 Yes [id number] 100mg Take 1 [facility] 100 mg 9-02 capsule by ity of capsule 00:00: mouth 3 [place] 00 (three) Medical times Branch daily as needed for Cough. bromphenira 2020-0 Yes [id number] 5mL Take 5 mL [facility] mine-pseudo 9-02 by mouth 4 it y of ephedrine-D 00:00: (four) [place] [facility] ([facility] 00 times Medical DM) 2-30-10 daily as Bran ch mg/5 mL needed for syrup Congestion /Allergies or Cough. albuterol 0 Yes [id number] 2{puff} Inhale 2 [facility] 90 9-02 Puffs ity of mcg/actuati 00:00: every 4 [place] inhaler 00 (four) Medical hours as Branch needed for Wheezing or Shortness of Breath. ondansetron 0 Yes [id number] 4mg Take 1 [facility] (ZOFRAN 9-02 tablet by ity of ODT) 4 mg 00:00: mouth [place] disintegrat 00 every 8 Medic al ing tablet (eight) Branch hours as needed for Nausea and Vomiting (N/V). benzonatate 0 Yes [id number] 100mg Take 1 [facility] 100 mg 9-02 capsule by ity of capsule 00:00: mouth 3 [place] 00 (three) Medical times Branch daily as needed for Cough. bromphenira 2020-0 Yes [id number] 5mL Take 5 mL [facility] mine-pseudo 9-02 by mouth 4 it y of ephedrine-D 00:00: (four) [place] [facility] ([facility]OMF[facility] 00 times Medical DM) 2-30-10 daily as Bran ch mg/5 mL needed for syrup Congestion /Allergies or Cough. albuterol Yes [id number] 2{puff} Inhale 2 [facility] 90 9-02 Puffs ity of mcg/actuati 00:00: every 4 [place] [facility] inhaler 00 (four) Medical hours as Branch needed for Wheezing or Shortness of Breath. ondansetron 0 Yes [id number] 4mg Take 1 [facility] (ZOFRAN 9-02 tablet by ity of ODT) 4 mg 00:00: mouth [place] disintegrat 00 every 8 Medic al ing tablet (eight) Branch hours as needed for Nausea and Vomiting (N/V). benzonatate 0 Yes [id number] 100mg Take 1 [facility] 100 mg 9-02 capsule by ity of capsule 00:00: mouth 3 [place] 00 (three) Medical times Branch daily as needed for Cough. bromphenira 0 Yes [id number] 5mL Take 5 mL [facility] mine-pseudo 9-02 by mouth 4 it y of ephedrine-D 00:00: (four) [place] [facility] (BROMFED 00 times Medical DM) 2-30-10 daily as Bran ch mg/5 mL needed for syrup Congestion /Allergies or Cough. albuterol 2020-0 Yes [id number] 2{puff} Inhale 2 [facility] 90 9-02 Puffs ity of mcg/actuati 00:00: every 4 [place] on inhaler 00 (four) Medical hours as Branch needed for Wheezing or Shortness of Breath. ondansetron 2020-0 Yes [id number] 4mg Take 1 [facility] (ZOFRAN 9-02 tablet by ity of ODT) 4 mg 00:00: mouth [place] disintegrat 00 every 8 Medic al ing tablet (eight) Branch hours as needed for Nausea and Vomiting (N/V). benzonatate 2020-0 Yes [id number] 100mg Take 1 [facility] 100 mg 9-02 capsule by ity of capsule 00:00: mouth 3 [place] 00 (three) Medical times Branch daily as needed for Cough. bromphenira 2020-0 Yes [id number] 5mL Take 5 mL [facility] mine-pseudo 9-02 by mouth 4 it y of ephedrine-D 00:00: (four) [place] [facility] (BROMFED 00 times Medical DM) 2-30-10 daily as Bran ch mg/5 mL needed for syrup Congestion /Allergies or Cough. albuterol 2020-0 Yes [id number] 2{puff} Inhale 2 [facility] 90 9-02 Puffs ity of mcg/actuati 00:00: every 4 [place] on inhaler 00 (four) Medical hours as Branch needed for Wheezing or Shortness of Breath. ondansetron 2020-0 Yes [id number] 4mg Take 1 [facility] (ZOFRAN 9-02 tablet by ity of ODT) 4 mg 00:00: mouth [place] disintegrat 00 every 8 Medic al ing tablet (eight) Branch hours as needed for Nausea and Vomiting (N/V). benzonatate 2020-0 Yes [id number] 100mg Take 1 [facility] 100 mg 9-02 capsule by ity of capsule 00:00: mouth 3 [place] 00 (three) Medical times Branch daily as needed for Cough. bromphenira 2020-0 Yes [id number] 5mL Take 5 mL [facility] mine-pseudo 9-02 by mouth 4 it y of ephedrine-D 00:00: (four) [place] [facility] (BROMFED 00 times Medical DM) 2-30-10 daily as Bran ch mg/5 mL needed for syrup Congestion /Allergies or Cough. albuterol 2020-0 Yes [id number] 2{puff} Inhale 2 [facility] 90 9-02 Puffs ity of mcg/actuati 00:00: every 4 [place] on inhaler 00 (four) Medical hours as Branch needed for Wheezing or Shortness of Breath. ondansetron 2020-0 Yes [id number] 4mg Take 1 [facility] (ZOFRAN 9-02 tablet by ity of ODT) 4 mg 00:00: mouth [place] disintegrat 00 every 8 Medic al ing tablet (eight) Branch hours as needed for Nausea and Vomiting (N/V). benzonatate 2020-0 Yes [id number] 100mg Take 1 [facility] 100 mg 9-02 capsule by ity of capsule 00:00: mouth 3 [place] 00 (three) Medical times Branch daily as needed for Cough. bromphenira 2020-0 Yes [id number] 5mL Take 5 mL [facility] mine-pseudo 9-02 by mouth 4 it y of ephedrine-D 00:00: (four) [place] [facility] (BROMFED 00 times Medical DM) 2-30-10 daily as Bran ch mg/5 mL needed for syrup Congestion /Allergies or Cough. albuterol 2020-0 Yes [id number] 2{puff} Inhale 2 [facility] 90 9-02 Puffs ity of mcg/actuati 00:00: every 4 [place] on inhaler 00 (four) Medical hours as Branch needed for Wheezing or Shortness of Breath. ondansetron 2020-0 Yes [id number] 4mg Take 1 [facility] (ZOFRAN 9-02 tablet by ity of ODT) 4 mg 00:00: mouth [place] disintegrat 00 every 8 Medic al ing tablet (eight) Branch hours as needed for Nausea and Vomiting (N/V). benzonatate 2020-0 Yes [id number] 100mg Take 1 [facility] 100 mg 9-02 capsule by ity of capsule 00:00: mouth 3 [place] 00 (three) Medical times Branch daily as needed for Cough. bromphenira 2020-0 Yes [id number] 5mL Take 5 mL [facility] mine-pseudo 9-02 by mouth 4 it y of ephedrine-D 00:00: (four) [place] [facility] (BROMFED 00 times Medical DM) 2-30-10 daily as Bran ch mg/5 mL needed for syrup Congestion /Allergies or Cough. albuterol 2020-0 Yes [id number] 2{puff} Inhale 2 [facility] 90 9-02 Puffs ity of mcg/actuati 00:00: every 4 [place] [facility] on inhaler 00 (four) Medical hours as Branch needed for Wheezing or Shortness of Breath. ondansetron 2020-0 Yes [id number] 4mg Take 1 [facility] (ZOFRAN 9-02 tablet by ity of ODT) 4 mg 00:00: mouth [place] disintegrat 00 every 8 Medic al ing tablet (eight) Branch hours as needed for Nausea and Vomiting (N/V). benzonatate 2020-0 Yes [id number] 100mg Take 1 [facility] 100 mg 9-02 capsule by ity of capsule 00:00: mouth 3 [place] 00 (three) Medical times Branch daily as needed for Cough. bromphenira 2020-0 Yes [id number] 5mL Take 5 mL [facility] mine-pseudo 9-02 by mouth 4 it y of ephedrine-D 00:00: (four) [place] [facility] (BROMFED 00 times Medical DM) 2-30-10 daily as Bran ch mg/5 mL needed for syrup Congestion /Allergies or Cough. albuterol 2020-0 Yes [id number] 2{puff} Inhale 2 [facility] 90 9-02 Puffs ity of mcg/actuati 00:00: every 4 [place] [facility] on inhaler 00 (four) Medical hours as Branch needed for Wheezing or Shortness of Breath. ondansetron 2020-0 Yes [id number] 4mg Take 1 [facility] (ZOFRAN 9-02 tablet by ity of ODT) 4 mg 00:00: mouth [place] disintegrat 00 every 8 Medic al ing tablet (eight) Branch hours as needed for Nausea and Vomiting (N/V). benzonatate 2020-0 Yes [id number] 100mg Take 1 [facility] 100 mg 9-02 capsule by ity of capsule 00:00: mouth 3 [place] 00 (three) Medical times Branch daily as needed for Cough. bromphenira 2020-0 Yes [id number] 5mL Take 5 mL [facility] mine-pseudo 9-02 by mouth 4 it y of ephedrine-D 00:00: (four) [place] [facility] (BROMFED 00 times Medical DM) 2-30-10 daily as Bran ch mg/5 mL needed for syrup Congestion /Allergies or Cough. albuterol Yes [id number] 2{puff} Inhale 2 [facility] 90 9-02 Puffs ity of mcg/actuati 00:00: every 4 [place] [facility] on inhaler 00 (four) Medical hours as Branch needed for Wheezing or Shortness of Breath. ondansetron 0 Yes [id number] 4mg Take 1 [facility] (ZOFRAN 9-02 tablet by ity of ODT) 4 mg 00:00: mouth [place] disintegrat 00 every 8 Medic al ing tablet (eight) Branch hours as needed for Nausea and Vomiting (N/V). benzonatate 0 Yes [id number] 100mg Take 1 [facility] 100 mg 9-02 capsule by ity of capsule 00:00: mouth 3 [place] 00 (three) Medical times Branch daily as needed for Cough. bromphenira 0 Yes [id number] 5mL Take 5 mL [facility] mine-pseudo 9-02 by mouth 4 it y of ephedrine-D 00:00: (four) [place] [facility] (BROMFED 00 times Medical DM) 2-30-10 daily as Bran ch mg/5 mL needed for syrup Congestion /Allergies or Cough. albuterol Yes [id number] 2{puff} Inhale 2 [facility] 90 9-02 Puffs ity of mcg/actuati 00:00: every 4 [place] [facility] on inhaler 00 (four) Medical hours as Branch needed for Wheezing or Shortness of Breath. ondansetron 0 Yes [id number] 4mg Take 1 [facility] (ZOFRAN 9-02 tablet by ity of ODT) 4 mg 00:00: mouth [place] disintegrat 00 every 8 Medic al ing tablet (eight) Branch hours as needed for Nausea and Vomiting (N/V). benzonatate 2020-0 Yes [id number] 100mg Take 1 [facility] 100 mg 9-02 capsule by ity of capsule 00:00: mouth 3 [place] 00 (three) Medical times Branch daily as needed for Cough. bromphenira 0 Yes [id number] 5mL Take 5 mL [facility] mine-pseudo 9-02 by mouth 4 it y of ephedrine-D 00:00: (four) [place] [facility] (BROMFED 00 times Medical DM) 2-30-10 daily as Bran ch mg/5 mL needed for syrup Congestion /Allergies or Cough. albuterol Yes [id number] 2{puff} Inhale 2 [facility] 90 9-02 Puffs ity of mcg/actuati 00:00: every 4 [place] [facility] on inhaler 00 (four) Medical hours as Branch needed for Wheezing or Shortness of Breath. ondansetron Yes [id number] 4mg Take 1 [facility] (ZOFRAN 9-02 tablet by ity of ODT) 4 mg 00:00: mouth [place] disintegrat 00 every 8 Medic al ing tablet (eight) Branch hours as needed for Nausea and Vomiting (N/V). benzonatate Yes [id number] 100mg Take 1 [facility] 100 mg 9-02 capsule by ity of capsule 00:00: mouth 3 [place] 00 (three) Medical times Branch daily as needed for Cough. bromphenira 0 Yes [id number] 5mL Take 5 mL [facility] mine-pseudo 9-02 by mouth 4 it y of ephedrine-D 00:00: (four) [place] [facility] ([facility] 00 times Medical DM) 2-30-10 daily as Bran ch mg/5 mL needed for syrup Congestion /Allergies or Cough. albuterol Yes [id number] 2{puff} Inhale 2 [facility] 90 9-02 Puffs ity of mcg/actuati 00:00: every 4 [place] [facility] inhaler 00 (four) Medical hours as Branch needed for Wheezing or Shortness of Breath. ondansetron 0 Yes [id number] 4mg Take 1 [facility] (ZOFRAN 9-02 tablet by ity of ODT) 4 mg 00:00: mouth [place] disintegrat 00 every 8 Medic al ing tablet (eight) Branch hours as needed for Nausea and Vomiting (N/V). benzonatate 2020-0 Yes [id number] 100mg Take 1 [facility] 100 mg 9-02 capsule by ity of capsule 00:00: mouth 3 [place] 00 (three) Medical times Branch daily as needed for Cough. bromphenira 2020-0 Yes [id number] 5mL Take 5 mL [facility] mine-pseudo 9-02 by mouth 4 it y of ephedrine-D 00:00: (four) [place] [facility] ([facility]OMFED 00 times Medical DM) 2-30-10 daily as Bran ch mg/5 mL needed for syrup Congestion /Allergies or Cough. albuterol Yes [id number] 2{puff} Inhale 2 [facility] 90 9-02 Puffs ity of mcg/actuati 00:00: every 4 [place] [facility] inhaler 00 (four) Medical hours as Branch needed for Wheezing or Shortness of Breath. ondansetron 0 Yes [id number] 4mg Take 1 [facility] (ZOFRAN 9-02 tablet by ity of ODT) 4 mg 00:00: mouth [place] disintegrat 00 every 8 Medic al ing tablet (eight) Branch hours as needed for Nausea and Vomiting (N/V). benzonatate 2020-0 Yes [id number] 100mg Take 1 [facility] 100 mg 9-02 capsule by ity of capsule 00:00: mouth 3 [place] 00 (three) Medical times Branch daily as needed for Cough. bromphenira 0 Yes [id number] 5mL Take 5 mL [facility] mine-pseudo 9-02 by mouth 4 it y of ephedrine-D 00:00: (four) [place] [facility] ([facility] 00 times Medical DM) 2-30-10 daily as Bran ch mg/5 mL needed for syrup Congestion /Allergies or Cough. albuterol 0 Yes [id number] 2{puff} Inhale 2 [facility] 90 9-02 Puffs ity of mcg/actuati 00:00: every 4 [place] [facility] on inhaler 00 (four) Medical hours as Branch needed for Wheezing or Shortness of Breath. ondansetron 2020-0 Yes [id number] 4mg Take 1 [facility] (ZOFRAN 9-02 tablet by ity of ODT) 4 mg 00:00: mouth [place] disintegrat 00 every 8 Medic al ing tablet (eight) Branch hours as needed for Nausea and Vomiting (N/V). benzonatate 2020-0 Yes [id number] 100mg Take 1 [facility] 100 mg 9-02 capsule by ity of capsule 00:00: mouth 3 [place] 00 (three) Medical times Branch daily as needed for Cough. bromphenira 2020-0 Yes [id number] 5mL Take 5 mL [facility] mine-pseudo 9-02 by mouth 4 it y of ephedrine-D 00:00: (four) [place] [facility] ([facility] 00 times Medical DM) 2-30-10 daily as Bran ch mg/5 mL needed for syrup Congestion /Allergies or Cough. albuterol Yes [id number] 2{puff} Inhale 2 [facility] 90 9-02 Puffs ity of mcg/actuati 00:00: every 4 [place] [facility] on inhaler 00 (four) Medical hours as Branch needed for Wheezing or Shortness of Breath. ondansetron Yes [id number] 4mg Take 1 [facility] (ZOFRAN 9-02 tablet by ity of ODT) 4 mg 00:00: mouth [place] disintegrat 00 every 8 Medic al ing tablet (eight) Branch hours as needed for Nausea and Vomiting (N/V). benzonatate Yes [id number] 100mg Take 1 [facility] 100 mg 9-02 capsule by ity of capsule 00:00: mouth 3 [place] (three) Medical times Branch daily as needed for Cough. bromphenira Yes [id number] 5mL Take 5 mL [facility] mine-pseudo 9-02 by mouth 4 it y of ephedrine-D 00:00: (four) [place] [facility] ([facility] 00 times Medical DM) 2-30-10 daily as Bran ch mg/5 mL needed for syrup Congestion /Allergies or Cough. albuterol Yes [id number] 2{puff} Inhale 2 [facility] 90 9-02 Puffs ity of mcg/actuati 00:00: every 4 [place] [facility] on inhaler 00 (four) Medical hours as Branch needed for Wheezing or Shortness of Breath. ondansetron Yes [id number] 4mg Take 1 [facility] (ZOFRAN 9-02 tablet by ity of ODT) 4 mg 00:00: mouth [place] disintegrat 00 every 8 Medic al ing tablet (eight) Branch hours as needed for Nausea and Vomiting (N/V). benzonatate 0 Yes [id number] 100mg Take 1 [facility] 100 mg 9-02 capsule by ity of capsule 00:00: mouth 3 [place] 00 (three) Medical times Branch daily as needed for Cough. bromphenira 2020-0 Yes [id number] 5mL Take 5 mL [facility] mine-pseudo 9-02 by mouth 4 it y of ephedrine-D 00:00: (four) [place] [facility] ([facility] 00 times Medical DM) 2-30-10 daily as Bran ch mg/5 mL needed for syrup Congestion /Allergies or Cough. albuterol Yes [id number] 2{puff} Inhale 2 [facility] 90 9-02 Puffs ity of mcg/actuati 00:00: every 4 [place] [facility] on inhaler 00 (four) Medical hours as Branch needed for Wheezing or Shortness of Breath. ondansetron 2020-0 Yes [id number] 4mg Take 1 [facility] (ZOFRAN 9-02 tablet by ity of ODT) 4 mg 00:00: mouth [place] disintegrat 00 every 8 Medic al ing tablet (eight) Branch hours as needed for Nausea and Vomiting (N/V). benzonatate 2020-0 Yes [id number] 100mg Take 1 [facility] 100 mg 9-02 capsule by ity of capsule 00:00: mouth 3 [place] 00 (three) Medical times Branch daily as needed for Cough. bromphenira 2020-0 Yes [id number] 5mL Take 5 mL [facility] mine-pseudo 9-02 by mouth 4 it y of ephedrine-D 00:00: (four) [place] [facility] ([facility]OM[facility] 00 times Medical DM) 2-30-10 daily as Bran ch mg/5 mL needed for syrup Congestion /Allergies or Cough. albuterol Yes [id number] 2{puff} Inhale 2 [facility] 90 9-02 Puffs ity of mcg/actuati 00:00: every 4 [place] [facility] on inhaler 00 (four) Medical hours as Branch needed for Wheezing or Shortness of Breath. ondansetron 2020-0 Yes [id number] 4mg Take 1 [facility] (ZOFRAN 9-02 tablet by ity of ODT) 4 mg 00:00: mouth [place] disintegrat 00 every 8 Medic al ing tablet (eight) Branch hours as needed for Nausea and Vomiting (N/V). benzonatate 2020-0 Yes [id number] 100mg Take 1 [facility] 100 mg 9-02 capsule by ity of capsule 00:00: mouth 3 [place] 00 (three) Medical times Branch daily as needed for Cough. bromphenira 2020-0 Yes [id number] 5mL Take 5 mL [facility] mine-pseudo 9-02 by mouth 4 it y of ephedrine-D 00:00: (four) [place] [facility] ([facility] 00 times Medical DM) 2-30-10 daily as Bran ch mg/5 mL needed for syrup Congestion /Allergies or Cough. albuterol Yes [id number] 2{puff} Inhale 2 [facility] 90 9-02 Puffs ity of mcg/actuati 00:00: every 4 [place] [facility] inhaler 00 (four) Medical hours as Branch needed for Wheezing or Shortness of Breath. ondansetron 0 Yes [id number] 4mg Take 1 [facility] (ZOFRAN 9-02 tablet by ity of ODT) 4 mg 00:00: mouth [place] disintegrat 00 every 8 Medic al ing tablet (eight) Branch hours as needed for Nausea and Vomiting (N/V). benzonatate Yes [id number] 100mg Take 1 [facility] 100 mg 9-02 capsule by ity of capsule 00:00: mouth 3 [place] 00 (three) Medical times Branch daily as needed for Cough. bromphenira 0 Yes [id number] 5mL Take 5 mL [facility] mine-pseudo 9-02 by mouth 4 it y of ephedrine-D 00:00: (four) [place] [facility] ([facility] 00 times Medical DM) 2-30-10 daily as Bran ch mg/5 mL needed for syrup Congestion /Allergies or Cough. albuterol Yes [id number] 2{puff} Inhale 2 Univers 90 9-02 Puffs ity of mcg/actuati 00:00: every 4 Neal as on inhaler 00 (four) Medical hours as Branch needed for Wheezing or Shortness of Breath. ondansetron 2020-0 Yes [id number] 4mg Take 1 Univers (ZOFRAN 9-02 tablet by ity of ODT) 4 mg 00:00: mouth [place] disintegrat 00 every 8 Medic al ing tablet (eight) Branch hours as needed for Nausea and Vomiting (N/V). ondansetron 2020-0 2023- No [id number] 4mg Take 1 Univers (ZOFRAN 9-02 06-22 tablet by ity of ODT) 4 mg 00:00: 00:00 mouth [place] disintegrat 00 :00 every 8 Medic al ing tablet (eight) Branch hours as needed for Nausea and Vomiting (N/V). Zoloft 100 2020-0 No 15mg mg tablet 03-28 00:00: 00 Dose 2020-0 No Unknown 8 [...] 6 00:00: 00 Dose 2020-0 No Unknown 5-04 00:00: 00 Dose 2020-0 No Unknown 5-04 00:00: 00 lisinopriL 2020-0 Yes 10mg Take 1 Unive rs 10 mg 3-18 tablet by ity of tablet 00:00: mouth. [address] lisinopriL 2020-0 Yes 10mg Take 1 Unive rs 10 mg 3-18 tablet by ity of tablet 00:00: mouth. [address] lisinopriL 2020-0 Yes 10mg Take 10 mg U nivers 10 mg 3-18 by mouth. ity of tablet 00:00: [address] lisinopriL 2020-0 Yes 10mg Take 10 mg U nivers 10 mg 3-18 by mouth. ity of tablet 00:00: [address] lisinopriL 2020-0 Yes 10mg Take 10 mg U nivers 10 mg 3-18 by mouth. ity of tablet 00:00: [address] lisinopriL 2020-0 Yes 10mg Take 10 mg U nivers 10 mg 3-18 by mouth. ity of tablet 00:00: [address] lisinopriL 2020-0 Yes 10mg Take 10 mg U nivers 10 mg 3-18 by mouth. ity of tablet 00:00: [address] lisinopriL 2020-0 Yes 10mg Take 10 [...] by mouth. ity of tablet 00:00: [place] [facility] Branch lisinopriL 1-0 Yes 10mg Take 10 mg [...] tablet 00:00: [place] [facility] lisinopriL 2021-0 2023- No 10mg Take 1 Univ ers 10 mg 3-18 06-21 tablet by ity of tablet 00:00: 00:00 mouth. [place] 00 :00 [facility] [place] Dose 2020-0 No Unknown 1-21 00:00: 00 Dose 2021-0 No Unknown 1-21 00:00: 00 Zoloft 100 [...] Dose 2019-0 No Unknown 9-02 00:00: 00 Zoloft 100 2019-0 No 15mg mg tablet 7-14 00:00: 00 hydroxyzine 2019-0 No 51mg HCl 50 mg 7-14 tablet 00:00: 00 Zoloft 2019-0 No 15mg mg tablet 7-14 00:00: 00 hydroxyzine 2019-0 No 51mg HCl 50 mg 7-14 tablet 00:00: 00 Dose 2019-0 No Unknown 4-30 00:00: 00 Dose 2020-0 No Unknown 4-30 00:00: 00 Dose 2020-0 No Unknown 3-19 00:00: 00 hydroxyzine 2019-0 No 51mg HCl 50 mg 3-19 tablet 00:00: 00 Dose 2019-0 No Unknown 3-19 00:00: 00 hydroxyzine 2019-0 No 51mg HCl 50 mg 3-19 tablet 00:00: 00 Zoloft 2019-0 No 15mg mg tablet 3-10 00:00: 00 hydroxyzine 2020-0 No 51mg HCl 50 mg 3-10 tablet 00:00: 00 Zoloft 2019-0 No 15mg mg tablet 3-10 00:00: 00 hydroxyzine 2020-0 No 51mg HCl 50 mg 3-10 tablet 00:00: 00 Zoloft 2019-0 No 15mg mg tablet 1-23 00:00: 00 hydroxyzine 2019-0 No 51mg HCl 50 mg 1-23 tablet 00:00: 00 Zoloft 2019-0 No 15mg mg tablet 1-23 00:00: 00 hydroxyzine 2019-0 No 51mg HCl 50 mg 1-23 tablet [...] 00 Zoloft 2018-1 No 1mg mg tablet 0-28 00:00: 00 Zoloft 2018-1 No 1mg mg tablet 0-28 00:00: 00 Zoloft 2018-0 No 1mg mg tablet 6-24 00:00: 00 Zoloft 2018-0 No 1mg mg tablet 6-24 00:00: 00 Zoloft 2019-0 No 1mg mg tablet 4-09 00:00: [...] Lamictal 25 2019-0 No 2mg mg tablet 1- 00:00: 00 Lamictal 25 2019-0 No 1mg mg tablet 1- 00:00: 00 Lamictal 25 2019-0 No 1mg mg tablet 1- 00:00: 00 Lamictal 25 2018-1 No 1mg [...] Abilify 5 2018-0 No 1mg mg tablet 3- 00:00: 00 sertraline 2018-0 No 2mg 100 [...] 100 mg 9-19 tablet 00:00: 00 sertraline 2016-1 No 15mg 100 mg 2-13 tablet 00:00: 00 prednisone 2016-1 No 1mg 5 mg tablet 2-13 00:00: 00 sertraline 2016-1 No 15mg 100 mg 2-13 tablet 00:00: 00 prednisone 2016-1 No 1mg 5 mg tablet 2-13 00:00: 00 cyclobenzap 2016-1 No 1mg rine 10 mg 2-13 tablet 00:00: 00 cyclobenzap 2016-1 No 1mg rine 10 mg 2-13 tablet 00:00: 00 Immunizations Ordered Filled Immunization Date Status Comments [facility] Immunization Name Name SARS-COV-2 COVID-19 2020-12-06 Completed Unive rsity of VACCINE - (MODERNA) 00:00:00 [facility] SARS-COV-2 COVID-19 2020-12-06 Completed Unive rsity of VACCINE - (MODERNA) 00:00:00 [facility] SARS-COV-2 COVID-19 2020-12-06 Completed Unive rsity of VACCINE - (MODERNA) 00:00:00 [facility] SARS-COV-2 COVID-19 2020-12-06 Completed Unive rsity of VACCINE - (MODERNA) 00:00:00 [facility] SARS-COV-2 COVID-19 2020-12-06 Completed Unive rsity of VACCINE - (MODERNA) 00:00:00 [facility] SARS-COV-2 COVID-19 2020-12-06 Completed Unive rsity of VACCINE - (MODERNA) 00:00:00 [facility] SARS-COV-2 COVID-19 2020-12-06 Completed Unive rsity of VACCINE - (MODERNA) 00:00:00 [facility] SARS-COV-2 COVID-19 2020-12-06 Completed Unive rsity of VACCINE - (MODERNA) 00:00:00 [facility] SARS-COV-2 COVID-19 2020-12-06 Completed Unive rsity of VACCINE - (MODERNA) 00:00:00 [facility] SARS-COV-2 COVID-19 2020-12-06 Completed Unive rsity of VACCINE - (MODERNA) 00:00:00 [facility] SARS-COV-2 COVID-19 2020-12-06 Completed Unive rsity of VACCINE - (MODERNA) 00:00:00 [facility] SARS-COV-2 COVID-19 2020-12-06 Completed Unive rsity of VACCINE - (MODERNA) 00:00:00 [facility] SARS-COV-2 COVID-19 2020-12-06 Completed Unive rsity of VACCINE - (MODERNA) 00:00:00 [facility] SARS-COV-2 COVID-19 2020-12-06 Completed Unive rsity of VACCINE - (MODERNA) 00:00:00 [facility] SARS-COV-2 COVID-19 2020-12-06 Completed Unive rsity of VACCINE - (MODERNA) 00:00:00 [facility] SARS-COV-2 COVID-19 2020-12-06 Completed Unive rsity of VACCINE - (MODERNA) 00:00:00 [facility] SARS-COV-2 COVID-19 2020-12-06 Completed Unive rsity of VACCINE - (MODERNA) 00:00:00 [facility] SARS-COV-2 COVID-19 2020-12-06 Completed Unive rsity of VACCINE - (MODERNA) 00:00:00 [facility] SARS-COV-2 COVID-19 2020-12-06 Completed Unive rsity of VACCINE - (MODERNA) 00:00:00 [facility] SARS-COV-2 COVID-19 2020-12-06 Completed Unive rsity of VACCINE - (MODERNA) 00:00:00 [facility] SARS-COV-2 COVID-19 2020-12-06 Completed Unive rsity of VACCINE - (MODERNA) 00:00:00 [facility] SARS-COV-2 COVID-19 2020-12-06 Completed Unive rsity of VACCINE - (MODERNA) 00:00:00 [facility] SARS-COV-2 COVID-19 2020-12-06 Completed Unive rsity of VACCINE - (MODERNA) 00:00:00 [facility] SARS-COV-2 COVID-19 2020-12-06 Completed Unive rsity of VACCINE - (MODERNA) 00:00:00 [facility] SARS-COV-2 COVID-19 2020-12-06 Completed Unive rsity of VACCINE - (MODERNA) 00:00:00 [facility] SARS-COV-2 COVID-19 2020-12-06 Completed Unive rsity of VACCINE - (MODERNA) 00:00:00 [facility] SARS-COV-2 COVID-19 2020-12-06 Completed Unive rsity of VACCINE - (MODERNA) 00:00:00 [facility] SARS-COV-2 COVID-19 2020-12-06 Completed Unive rsity of VACCINE - (MODERNA) 00:00:00 [facility] SARS-COV-2 COVID-19 2020-12-06 Completed Unive rsity of VACCINE - (MODERNA) 00:00:00 [facility] SARS-COV-2 COVID-19 2020-12-06 Completed Unive rsity of VACCINE - (MODERNA) 00:00:00 [facility] SARS-COV-2 COVID-19 2020-12-06 Completed Unive rsity of VACCINE - (MODERNA) 00:00:00 [facility] SARS-COV-2 COVID-19 2020-12-06 Completed Unive rsity of VACCINE - (MODERNA) 00:00:00 [facility] SARS-COV-2 COVID-19 2020-12-06 Completed Unive rsity of VACCINE - (MODERNA) 00:00:00 [facility] SARS-COV-2 COVID-19 2020-12-06 Completed Unive rsity of VACCINE - (MODERNA) 00:00:00 [facility] SARS-COV-2 COVID-19 2020-12-06 Completed Unive rsity of VACCINE - (MODERNA) 00:00:00 [facility] SARS-COV-2 COVID-19 2020-12-06 Completed Unive rsity of VACCINE - (MODERNA) 00:00:00 [facility] SARS-COV-2 COVID-19 2020-12-06 Completed Unive rsity of VACCINE - (MODERNA) 00:00:00 [facility] Influenza, 2018-07-25 Completed seasonal, inj 00:00:00 Influenza, 2018-07-25 Completed seasonal, inj 00:00:00 Tdap 2017-04-26 Completed 00:00:00 Influenza, 2017-04-26 Completed seasonal, inj 00:00:00 Tdap 2017-04-26 Completed 00:00:00 Influenza, 2017-04-26 Completed seasonal, inj 00:00:00 Vital Signs Vital Name Observation Time Observation Value Comments Source Systolic blood 2023-01-30 17:00:00 105 mm[Hg] Univer sity of pressure [facility] Diastolic blood 2023-01-30 17:00:00 55 mm[Hg] Unive rsity of pressure [facility] Heart rate 2023-01-30 17:00:00 84 /min [facility] Body temperature 2023-01-30 17:00:00 36.78 Rivka [facility] Respiratory rate 2023-01-30 17:00:00 20 /min [facility] Oxygen saturation in 2023-01-30 17:00:00 98 /min [facility] Arterial blood by [facility] Pulse oximetry Branch Body weight 2023-01-27 13:00:00 73 kg [facility] [place] [facility] BMI 2023-01-27 13:00:00 31.43 kg/m2 [facility] [place] [facility] Systolic blood 2023-01-26 12:00:00 109 mm[Hg] Univer sity of pressure [place] [facility] Diastolic blood 2023-01-26 12:00:00 65 mm[Hg] Unive rsity of pressure [place] [facility] Heart rate 2023-01-26 12:00:00 90 /min [facility] [place] [facility] Body temperature 2023-01-26 12:00:00 36.56 Rivka Univ ersity [facility] [place] [facility] Respiratory rate 2023-01-26 12:00:00 17 /min Univ ersity [facility] [place] [facility] Oxygen saturation in 2023-01-26 12:00:00 97 /min University of Arterial blood by [employer] Pulse oximetry Branch Body height 2023-01-20 11:53:00 152.4 cm [facility] [place] [facility] Body weight 2023-01-20 11:53:00 73.029 kg [facility] [place] [facility] BMI 2023-01-20 11:53:00 31.44 kg/m2 [facility] [place] [facility] Systolic blood 2023-01-17 10:19:00 126 mm[Hg] Univer sity of pressure [place] [facility] Diastolic blood 2023-01-17 10:19:00 79 mm[Hg] Unive rsity of pressure [place] [facility] Heart rate 2023-01-17 10:19:00 81 /min [facility] [place] [facility] Body temperature 2023-01-17 10:19:00 37 Rivka Univ ersity [facility] [place] [facility] Respiratory rate 2023-01-17 10:19:00 16 /min Univ ers[facility] [place] [facility] Body height 2023-01-17 10:19:00 152.4 cm [facility] [place] [facility] Body weight 2023-01-17 10:19:00 73.2 kg [facility] [place] [facility] BMI 2023-01-17 10:19:00 31.52 kg/m2 [facility] [place] [facility] Oxygen saturation in 2023-01-17 10:19:00 93 /min University of Arterial blood by [employer] Pulse oximetry Branch Systolic blood 2022-10-21 13:21:00 109 mm[Hg] Univer sity of pressure [place] [facility] Diastolic blood 2022-10-21 13:21:00 77 mm[Hg] Unive rsity of pressure [place] [facility] Heart rate 2022-10-21 13:21:00 84 /min [facility] [place] [facility] [place] Body temperature 2022-10-21 13:21:00 36.11 Rivka Univ ersity [facility] [place] [facility] Body height 2022-10-21 13:21:00 152.4 cm [facility] [place] [facility] Body weight 2022-10-21 13:21:00 78.971 kg [facility] [place] [facility] BMI 2022-10-21 13:21:00 34.00 kg/m2 [facility] [place] [facility] Systolic blood 2022-07-22 22:32:00 120 mm[Hg] Univer sity of pressure [place] [facility] Diastolic blood 2022-07-22 22:32:00 86 mm[Hg] Unive rsity of pressure [facility] Heart rate 2022-07-22 22:32:00 125 /min [facility] [place] [facility] Body temperature 2022-07-22 22:32:00 36.17 Rivka Univ [facility] [place] [facility] Body height 2022-07-22 22:32:00 152.4 cm [facility] [place] [facility] Body weight 2022-07-22 22:32:00 78.926 kg [facility] [place] [facility] BMI 2022-07-22 22:32:00 33.98 kg/m2 Universi ty [facility] Branch BP Systolic 2022-03-01 14:51:00 107 mm[Hg] [...] Date / Time Performing Clinician Source Performed XR LUMBAR SPINE 2 VW 2023-01-27 10:11:00 [facility] SPINE THORACIC 2 VW 2023-01-27 10:11:00 [facility] PROTEIN 2023-01-27 09:06:00 Onofre Shafer [facility] SEDIMENTATION RATE 2023-01-27 09:06:00 Onofre Shafer [facility] CBC WITH DIFF 2023-01-27 09:06:00 Onofre Shafer [facility] CT LUMBAR SPINE WO 2023-01-23 16:22:14 Coleman Wolfe [facility] CT THORACIC SPINE WO 2023-01-23 16:22:14 Coleman Wolfe [facility] BASIC METABOLIC PANEL 2023-01-23 11:36:00 Coleman Wolfe [facility] (NA, K, CL, CO2, Medical Branch GLUCOSE, BUN, CREATININE, CA) CBC WITHOUT DIFF 2023-01-23 11:36:00 Coleman Wolfe [facility] XR SCOLIOSIS SURVEY 2 VW 2023-01-23 02:10:00 Felipe Herzog [facility] DUPLEX VENOUS LEG RIGHT 2023-01-21 13:32:00 [place] [facility] - BY VASCULAR LAB [facility] CBC WITHOUT DIFF 2023-01-20 21:24:00 Russel Albright [facility] D-DIMER 2023-01-20 21:24:00 [place] [facility] PHOSPHORUS 2023-01-19 11:44:00 Yamil Pending Sale To [facility] MAGNESIUM 2023-01-19 11:44:00 [facility] BASIC METABOLIC PANEL 2023-01-19 11:44:00 [facility] (NA, K, CL, CO2, Medical Branch GLUCOSE, BUN, CREATININE, CA) CBC WITH DIFF 2023-01-19 11:44:00 Yamil [facility] PHOSPHORUS 2023-01-18 10:36:00 [facility] MAGNESIUM 2023-01-18 10:36:00 [facility] BASIC METABOLIC PANEL 2023-01-18 10:36:[address] [facility] (NA, K, CL, CO2, Medical Branch GLUCOSE, BUN, CREATININE, CA) CBC WITH DIFF 2023-01-18 10:36:00 Jamie [facility] PHOSPHORUS 2023-01-18 10:36:00 [facility] MAGNESIUM 2023-01-18 10:36:00 [facility] BASIC METABOLIC PANEL 2023-01-18 10:36:[address] [facility] (NA, K, CL, CO2, Medical Branch GLUCOSE, BUN, CREATININE, CA) CBC WITH DIFF 2023-01-18 10:36:00 Jamie [facility] XR CHEST 1 2023-01-18 03:45:00 Vu [facility] XR CHEST 1 VW 2023-01-18 03:45:00 Vu [facility] XR KUB 2023-01-18 03:45:00 Vu, [facility] BASIC METABOLIC PANEL 2023-01-18 03:23:00 [facility] (NA, K, CL, CO2, Medical Branch GLUCOSE, BUN, CREATININE, CA) CBC WITHOUT DIFF 2023-01-18 03:23:00 , [facility] BASIC METABOLIC PANEL 2023-01-18 03:23:00 [facility] (NA, K, CL, CO2, Medical Branch GLUCOSE, BUN, CREATININE, CA) CBC WITHOUT DIFF 2023-01-18 03:23:00 Kwame Garcia [facility] PREPARE PACKED RBC 2023-01-18 02:43:04 Maritza [facility] PREPARE PACKED RBC 2023-01-18 02:43:04 Mansi Salas [facility] TRANSFUSE PACKED RBC 2023-01-18 01:11:00 Jeffy Delcid [facility] TRANSFUSE PACKED RBC 2023-01-18 01:11:00 Jeffy Delcid [facility] ABG+COOX+NA+K+GLU+CA2+ 2023-01-18 01:00:00 [facility] ABG+COOX+NA+K+GLU+CA2+ 2023-01-18 01:00:00 [facility] SP[facility] 1 VW 2023-01-18 00:53:00 Felipe Herzog [facility] SPINE THORACIC 2 VW 2023-01-18 00:53:00 [facility] FL TIME OR 2023-01-18 00:50:39 Felipe Herzog [facility] (NON-REPORTABLE) Medical Branch FL TIME OR 2023-01-18 00:50:39 Felipe Herzog [facility] (NON-REPORTABLE) [facility] ABG+COOX+NA+K+GLU+CA2+ 2023-01-18 00:04:00 Felipe Herzog [facility] ABG+COOX+NA+K+GLU+CA2+ 2023-01-18 00:04:00 Felipe Herzog Un iversity [facility] FL TIME OR 2023-01-17 23:14:37 Felipe Herzog [facility] (NON-REPORTABLE) Medical Branch FL TIME OR 2023-01-17 23:14:37 Felipe Herzog [facility] (NON-REPORTABLE) Medical Branch TRANSFUSE PACKED RBC 2023-01-17 23:07:00 Jeffy Delcid [facility] TRANSFUSE PACKED RBC 2023-01-17 23:07:00 Jeffy Delcid [facility] ABG+COOX+NA+K+GLU+CA2+ 2023-01-17 22:58:00 Felipe Herz[facility] ABG+COOX+NA+K+GLU+CA2+ 2023-01-17 22:58:00 Felipe Herzog [facility] PREPARE PACKED RBC 2023-01-17 22:41:13 Maritza [facility] PREPARE PACKED RBC 2023-01-17 22:41:13 Maritza [facility] ABG+COOX+NA+K+GLU+CA2+ 2023-01-17 21:33:00 Felipe Herzog iversity [facility] ABG+COOX+NA+K+GLU+CA2+ 2023-01-17 21:33:00 Felipe Herzog [facility] CBC WITHOUT DIFF 2023-01-17 21:25:00 Felipe Herzog [facility] CBC WITHOUT DIFF 2023-01-17 21:25:00 Felipe Herzog [facility] ABG+COOX+NA+K+GLU+CA2+ 2023-01-17 21:09:00 Felipe Herzog iversity [facility] ABG+COOX+NA+K+GLU+CA2+ 2023-01-17 21:09:00 Felipe Herzog Un iversity [facility] ABG+COOX+NA+K+GLU+CA2+ 2023-01-17 20:30:00 Felipe Herzog iversity of [facility] ABG+COOX+NA+K+GLU+CA2+ 2023-01-17 20:30:00 Felipe Herzog iversity [facility] ABG+COOX+NA+K+GLU+CA2+ 2023-01-17 18:47:00 Felipe Herzog Un [facility] [place] [facility] ABG+COOX+NA+K+GLU+CA2+ 2023-01-17 18:47:00 Mino Felipe [facility] [place] [facility] ABG+COOX+NA+K+GLU+CA2+ 2023-01-17 16:48:00 Felipe Herzog Un [facility] [place] [facility] ABG+COOX+NA+K+GLU+CA2+ 2023-01-17 16:48:00 Felipe Herzog Un iversity of [facility] ABG+COOX+NA+K+GLU+CA2+ 2023-01-17 15:27:00 Felipe Herzog Un iversity of [facility] ABG+COOX+NA+K+GLU+CA2+ 2023-01-17 15:27:00 Felipe Herzog Un iversity of [facility] LUMBAR DECOMPRESSION 2023-01-17 12:03:00 Mino [facility] WITH Medical Branch FUSION/INSTRUMENTATION LUMBAR DECOMPRESSION 2023-01-17 12:03:00 Mino [facility] WITH Medical Branch FUSION/INSTRUMENTATION HB ABO GROUPING 2023-01-17 10:45:00 [facility] HB ABO GROUPING 2023-01-17 10:45:00 [facility] ASSIGNMENT OF BENEFITS 2023-01-17 10:12:57 Doctor Unassigned, No [facility] Medical Branch AUTHORIZATION FOR 2022-11-10 05:01:00 Doctor Unassigned, No [facility] RELEASE OF PHI Name Medical Branch XR CHEST 2 VW 2022-10-28 21:18:07 [facility] XR SCOLIOSIS SURVEY 2 VW 2022-10-21 14:07:44 Felipe Herzog [facility] EXTERNAL PROVIDER 2022-10-19 05:01:00 Doctor Unassigned, No Univ ersity [facility] RECORDS Name Medical Branch REFERRAL- 2022-09-08 06:01:00 Doctor Unassigned, No [facility] REQUEST/RESPONSE Name Medical Branch REFERRAL- 2022-04-22 05:01:00 Doctor Unassigned, No [facility] [place] REQUEST/RESPONSE Name Medical Branch ASSIGNMENT OF BENEFITS 2022-03-23 19:23:08 Doctor Unassigned, No [facility] Name Medical Branch CONSENT/REFUSAL FOR 2022-03-23 19:22:45 Doctor Unassigned, No [facility] Name Medical Branch EXTERNAL PROVIDER 2022-03-11 05:01:00 Doctor Unassigned, No Univ [facility] RECORDS Name Medical Branch MR THORACIC SPINE WO 2022-03-10 22:08:00 [place] [facility] Medical Branch MR LUMBAR SPINE WO 2022-03-10 22:03:42 [place] [facility] CONTRAST Medical Branch MR CERVICAL SPINE WO 2022-03-10 21:26:19 [place] [facility] Medical Branch DEXA AXIAL (HIP AND 2022-03-10 20:09:14 [place] [facility] SPINE) Medical Branch DISCLOSURE AND CONSENT, 2022-02-26 05:01:00 Doctor Unassigned, N o [facility] MEDICAL AND SURGICAL Name Medical Bra [facility] PROCEDURES Plan of Care Planned Activity Planned Date Details Comments Source Goal Plan of Care Note [code = 55825-7] Goal Plan of Care Note [code = 08615-2] Goal Plan of Care Note [code = 64486-1] Goal Plan of Care Note [code = 53262-4] Goal Plan of Care Note [code = 18528-5] Goal Plan of Care Note [code = 81374-3] Goal Plan of Care Note [code = 54341-0] Goal Plan of Care Note [code = 65494-2] Goal Plan of Care Note [code = 43083-3] Goal Plan of Care Note [code = 45161-0] Goal Plan of Care Note [code = 20187-9] Goal Plan of Care Note [code = 97585-5] Goal Plan of Care Note [code = 32673-2] Goal Plan of Care Note [code = 20392-5] Goal Plan of Care Note [code = 85413-7] Goal Plan of Care Note [code = 07672-9] Goal Plan of Care Note [code = 44131-1] Goal Plan of Care Note [code = 74241-6] Goal Plan of Care Note [code = 55089-0] Goal Plan of Care Note [code = 13067-5] Goal Plan of Care Note [code = 61788-5] Goal Plan of Care Note [code = 94753-9] Goal Plan of Care Note [code = 03488-5] Goal Plan of Care Note [code = 32214-6] Goal Plan of Care Note [code = 28977-8] Goal Plan of Care Note [code = 15968-1] Goal Plan of Care Note [code = 11627-1] Goal Plan of Care Note [code = 93730-0] Goal Plan of Care Note [code = 14645-1] Goal Plan of Care Note [code = 87401-6] Goal Plan of Care Note [code = 22533-8] Goal Plan of Care Note [code = 85117-4] Goal Plan of Care Note [code = 43959-7] Goal Plan of Care Note [code = 42861-0] Goal Plan of Care Note [code = 62622-3] Goal Plan of Care Note [code = 86038-9] Goal Plan of Care Note [code = 62018-9] Goal Plan of Care Note [code = 96117-4] Goal Plan of Care Note [code = 79760-9] Goal Plan of Care Note [code = 67847-3] Goal Plan of Care Note [code = 15311-1] Goal Plan of Care Note [code = 12477-9] Goal Plan of Care Note [code = 95112-4] Goal Plan of Care Note [code = 94388-6] Goal Plan of Care Note [code = 89141-1] Goal Plan of Care Note [code = 18550-8] Goal Plan of Care Note [code = 95214-1] Goal Plan of Care Note [code = 94967-1] Goal Plan of Care Note [code = 75509-5] Goal Plan of Care Note [code = 54561-9] Goal Plan of Care Note [code = 47773-5] Goal Plan of Care Note [code = 15931-1] Goal Plan of Care Note [code = 78635-6] Goal Plan of Care Note [code = 50273-7] Goal Plan of Care Note [code = 02927-1] Encounters Start End Encounter Admission Attending Care Care Encounter Source Date/Time Date/Time Type Type Clinicians Facility Department ID 2023-02-23 2023-02-23 [id number] 15:00:00 15:00:00 00 dennise Dela Cruz 2023-02-23 2023-02-23 Outpatient [place] IE [id number] Memoria 15:00:00 15:00:00 00 dennise Dela Cruz 2023-01-27 2023-01-30 Outpatient [facility] S[facility] [id number] Univers 03:22:00 17:25:00 , FELIPE divina [facility] 2023-01-27 2023-01-30 Emergency White, Yg DUENAS 1.2.840. [id number] Univers 03:22:00 17:25:00 Felipe Herzog [id number] ity of [facility] [id number] Neal as [id number] [facility] 097 Branch 2023-01-28 2023-01-28 Letter Mino DUENAS 1.2.840.114 [id number] Univers 00:00:00 00:00:00 (Out) , Felipe PERRY 350.1.13.10 it y of HOSPITAL 4.2.7.2.686 Neal as [id number] [facility] [address] 2023-01-27 2023-01-27 Transition JonesGILBERT 1.2.840.114 [id number] Univers 00:00:00 00:00:00 of Care Estephaniatam BARROSY 350.1.13.10 it [place] [id number] [facility] [address] 2023-01-17 2023-01-26 Inpatient R MINO [facility] SOR [id number] Univers 05:13:00 14:00:00 , FELIPE divina [facility] 2023-01-17 2023-01-26 Justus DUENAS 1.2.840.114 1 [id number] Univers 05:13:00 14:00:00 Encounter , Felipe PERRY 350.1.13.10 ity of [facility] 4.2.7.2.686 Neal as [id number] [facility] [address] 2023-01-17 2023-01-17 Surgery Mino DUENAS 1.2.840.114 10 [id number] Univers 07:00:00 15:50:00 , Felipe VICKY 350.1.13.10 it y of HOSPITAL 4.2.7.2.686 [place] as [id number] [facility] [address] 2023-01-17 2023-01-17 Orders Doctor NICOLE 1.2.840.114 [id number] Univers 00:00:00 00:00:00 Only Unassigned, VICKY 350.1.13.10 ity of [place] [facility] 4.2.7.2.686 Neal as [id number] [facility] [address] 2023-01-03 2023-01-03 Prep For Mino RIVERA 1.2.840.114 1 [id number] Univers 00:00:00 00:00:00 Surgery , Felipe VICKY 350.1.13.10 it y of HOSPITAL 4.2.7.2.686 [place] as [id number] [facility] [address] 2022-12-06 2022-12-06 Telephone Nikkimendez [facility] 1.2.840.114 [id number] Univers 00:00:00 00:00:00 , Felipe SPECIALTY 350.1.13.10 [place] [id number] Mn judith BEAULIEU [address] [facility] 2022-11-10 2022-11-10 Telephone Nikkimendez [facility] 1.2.840.114 [id number] Univers 00:00:00 00:00:00 , Felipe SPECIALTY 350.1.13.10 [place] [phone] Mn ackarissa CHRISTOFER 198 [facility] 2022-11-10 2022-11-10 Orders Doctor RIVERA 1.2.840.114 [id number] Univers 00:00:00 00:00:00 Only Unassigned, VICKY 350.1.13.10 ity of [place] [facility] 4.2.7.2.686 Neal as [id number] [facility] [address] 2022-11-04 2022-11-04 Telephone [facility] 1.2.840.114 [id number] Univers 00:00:00 00:00:00 , Felipe SPECIALTY 350.1.13.10 it[place] [phone] Mn judith BEAULIEU [address] [facility] 2022-11-02 2022-11-02 Telephone [facility] 1.2.840.114 [id number] Univers 00:00:00 00:00:00 , Felipe SPECIALTY 350.1.13.10 ity of CARE 4.2.7.2.686 [facility] CENTER AT [phone] Mn judith BEAULIEU [address] [place] [address] 2022-10-28 2022-10-28 Outpatient R [facility] 114 [id number] Univers 15:56:01 23:59:00 , FELIPE ity of [facility] 2022-10-28 2022-10-28 [facility] 1.2.840.114 1 [id number] Univers 15:56:01 23:59:00 Encounter , Felipe ANGLEMICKI 350.1.13.10 ity of [place] 4.2.7.2.686 [facility] [place] [id number] [facility] [address] 2022-10-28 2022-10-28 Outpatient R ALEX [facility] [id number] Univers 14:30:00 15:56:16 NADEEM ity of [facility] 2022-10-28 2022-10-28 Ancillary Georgina Molina [facility] 1 .2.840.114 [id number] Univers 14:30:00 15:56:16 Visit Nadeem Salmeron 350.1.13.10 ity of [place] 4.2.7.2.686 [facility] [id number] Mn judith DOYLE 179 [facility] 2022-10-28 2022-10-28 Telephone [facility] 1.2.840.114 [id number] Univers 00:00:00 00:00:00 , Felipe SPECIALTY 350.1.13.10 it[place] [id number] Mn judith BEAULIEU [address] [facility] 2022-10-25 2022-10-25 Shellfish Checker Lab, [facility] 1.2.840.114 10 [id number] Univers 11:30:00 11:45:00 Visit NikkievonKeithya SPECIALTY 350.1.13. 10 it[place] [phone] Mn judith BEAULIEU [address] [facility] 2022-10-25 2022-10-25 Outpatient R [facility] 228 [id number] [facility] 11:30:00 11:30:00 , FELIPE ity [facility] 2022-10-21 2022-10-21 [facility] 1.2.840.114 1 [id number] [facility] 08:04:42 23:59:00 Encounter , Felipe SPECIALTY 350.1.13.10 ity of CARE 4.2.7.2.686 [facility] CENTER AT [phone] Mn judith BEAULIEU [address] [facility] 2022-10-21 2022-10-21 Outpatient R [facility] [id number] Univers 08:15:00 10:08:14 , FELIPE ity [facility] 2022-10-21 2022-10-21 [facility] 1.2.840.114 10 [id number] Univers 08:15:00 10:08:14 Visit , Felipe SPECIALTY 350.1.13.10 ity of CARE 4.2.7.2.686 [facility] CENTER AT [phone] Mn judith BEAULIEU [address] [facility] 2022-10-21 2022-10-21 Abstract [facility] 1.2.840.114 1 [id number] Univers 00:00:00 00:00:00 , Felipe SPECIALTY 350.1.13.10 ity of CARE 4.2.7.2.686 [facility] CENTER AT [phone] Mn judith BEAULIEU [address] [facility] 2022-10-19 2022-10-19 Orders Doctor RIVERA 1.2.840.114 [id number] Univers 00:00:00 00:00:00 Only Unassigned, VICKY 350.1.13.10 ity of [place] [facility] 4.2.7.2.686 Neal as [id number] [address] 2022-10-14 2022-10-14 Outpatient [facility] [id number] Univers 16:30:00 17:13:41 , FELIPE ity of [facility] 2022-10-14 2022-10-14 Telemedici [facility] 1.2.840.114 [id number] [facility] 16:30:00 17:13:41 ne Visit , Felipe SPECIALTY 350.1.13.10 it[place] [phone] Mn judith BEAULIEU [address] [place] [address] 2022-10-13 2022-10-13 Telephone [facility] 1.2.840.114 [id number] Univers 00:00:00 00:00:00 , Felipe SPECIALTY 350.1.13.10 ity [place] 4.2[place].2.[place] [phone] Mn judith BEAULIEU [address] [place] [address] 2022-10-07 2022-10-07 Telephone [facility] 1.2.840.114 [id number] Univers 00:00:00 00:00:00 , Felipe SPECIALTY 350.1.13.10 ity [place]2.[place] [phone] Mn judith BEAULIEU [address] [place] [address] 2022-10-05 2022-10-05 Telephone [facility] 1.2.840.114 [id number] Univers 00:00:00 00:00:00 , Felipe SPECIALTY 350.1.13.10 it[place] [id number] Mn judith BEAULIEU [address] [place] [address] 2022-09-23 2022-09-23 Telephone [facility] 1.2.840.114 [id number] Univers 00:00:00 00:00:00 , Felipe SPECIALTY 350.1.13.10 it[place] [phone] Mn judith BEAULIEU [address] [facility] 2022-09-16 2022-09-16 Telephone [facility] 1.2.840.114 [id number] Univers 00:00:00 00:00:00 , Felipe SPECIALTY 350.1.13.10 it[place] [phone] Mn judith BEAULIEU [address] [facility] 2022-09-08 2022-09-08 Orders Doctor NICOLE 1.2.840.114 [id number] Univers 00:00:00 00:00:00 Only Unassigned, VICKY 350.1.13.10 ity of [place] [facility] 4.2.7.2.686 Neal as [id number] [address] 2022-09-07 2022-09-07 Outpatient Laurie CAPELLAN [facility] [id number] Univers 10:00:00 10:00:00 WEN murcia o f [facility] 2022-08-23 2022-08-23 Telephone NICOLE BuenoIT 1.2.840.114 [id number] Univers 00:00:00 00:00:00 [facility] 350.1.13.10 i ty of [place] [id number] [address] 2022-08-17 2022-08-17 Outpatient Laurie SABA, [facility] [id number] Univers 13:30:00 13:30:00 COLLEEN [facility] 2022-08-16 2022-08-16 Telephone NICOLE NgIT 1.2.840.114 [id number] Univers 00:00:00 00:00:00 [facility] 350.1.13.10 i ty of CL[place] [id number] [address] 2022-08-09 2022-08-09 Outpatient Laurie CRUZ, [facility] [id number] Univers 15:15:00 15:15:00 NATE [facility] 2022-07-22 2022-07-22 [facility] 1.2.840.114 [id number] Univers 17:45:53 23:59:00 Encounter , Felipe SPECIALTY 350.1.13.10 it[place] [id number] Mn judith BEAULIEU [address] [facility] 2022-07-22 2022-07-22 [facility] 1.2.840.114 [id number] Univers 17:38:15 17:44:00 Encounter , Felipe SPECIALTY 350.1.13.10 it[place] [id number] Mn judith BEAULIEU [address] [facility] 2022-07-22 2022-07-22 Outpatient R [facility] [id number] Univers 00:00:00 17:44:00 , FELIPE ity [facility] 2022-07-22 2022-07-22 Office [facility] 1.2.840.114 [id number] Univers 16:30:00 16:45:00 Visit , Felipe SPECIALTY 350.1.13.10 it[place] [phone] Mn judith BEAULIEU [address] [facility] 2022-07-20 2022-07-20 Telephone [facility] 1.2.840.114 [id number] Univers 00:00:00 00:00:00 , Felipe SPECIALTY 350.1.13.10 it[place] 4[place]2.[place] [phone] Mn judith BEAULIEU [address] [facility] 2022-07-15 2022-07-15 Telephone [facility] 1.2.840.114 [id number] Univers 00:00:00 00:00:00 , Felipe SPECIALTY 350.1.13.10 it[place]2.[place] [phone] Mn jduith BEAULIEU [address] [facility] 2022-07-08 2022-07-08 Outpatient R [facility] [id number] Univers 13:45:00 13:45:00 , FELIPE ity [facility] 2022-07-072022-07-07 Outpatient R TIIM [facility] [id number] Univers 13:00:00 13:00:00 CHILVANA ity o f [facility] 2022-06-03 2022-06-03 Outpatient R CECELIA MOODY [facility] 10 [id number] Univers 14:00:00 14:00:00 CECELIA MOODY i ty of [facility] 2022-06-03 2022-06-03 Outpatient R SOHAN MOODYWN [facility] 10 [id number] Univers 14:00:00 14:00:00 CECELIA MOODY i ty of [facility] 2022-04-30 2022-04-30 Telephone [facility] 1.2.840.114 [id number] Univers 00:00:00 00:00:00 , Felipe SPECIALTY 350.1.13.10 it[place]2.[place] [id number] Mn judith BRADOscar [address] [place] [address] 2022-04-22 2022-04-22 Orders Doctor NICOLE 1.2.840.114 [id number] Univers 00:00:00 00:00:00 Only Unassigned, VICKY 350.1.13.10 ity of [place] [facility] 4.2.7.2.686 Neal as [id number] [address] 2022-04-19 2022-04-19 Telephone [facility] 1.2.840.114 [id number] Univers 00:00:00 00:00:00 , Felipe SPECIALTY 350.1.13.10 ity [place]2.[place] [id number] Mn judith BEAULIEU [address] [place] [address] 2022-04-07 2022-04-07 Outpatient R RADIOLOGY [facility] [id number] Univers 00:00:00 00:00:00 ity of [facility] 2022-03-25 2022-03-25 Shellfish Checker Test, [facility] Pulmonary Function [facility] 1.2.840.114 [id number] Univers 08:00:00 09:00:00 Visit Unknown, Attending MULTISPEC 350.1.13. 10 ity of IALTY 4.2.7.2.686 [facility] [id number] [facility] AND D[facility] [address] [facility] 2022-03-25 2022-03-25 Outpatient R JESSENIA, [facility] [id number] Univers 08:00:00 08:00:00 ATTENDING ity of [facility] 2022-03-24 2022-03-24 Outpatient R [facility] [id number] Univers 08:00:00 08:00:00 ity of [facility] 2022-03-24 2022-03-24 Outpatient R [facility] [id number] Univers 08:00:00 08:00:00 ity [facility] 2022-03-23 2022-03-23 Laboratory Only, Adc Test [facility] 1.2.840. 114 [id number] Univers 14:00:00 14:15:00 Only Lena Quinones 350.1.13.10 ity [facility] 4.2.7.2.686 [facility] [id number] [facility] [address] 2022-03-23 2022-03-23 Outpatient R JONI [facility] [id number] Univers 14:00:00 14:00:00 LENA ity [facility] 2022-03-23 2022-03-23 Orders Doctor NICOLE 1.2.840.114 [id number] Univers 00:00:00 00:00:00 Only Unassigned, VICKY 350.1.13.10 ity of [place] [facility] 4.2.7.2.686 Neal [id number] [facility] [address] 2022-03-16 2022-03-16 Outpatient R [facility] [id number] Univers 13:00:00 13:00:00 ity of [facility] 2022-03-11 2022-03-11 Telemedici Mino [facility] 1.2.840.114 [id number] Univers 16:30:00 16:45:00 ne Visit , Felipe SPECIALTY 350.1.13.10 ity of CARE 4.2.7.2.686 [facility] AT [id number] Mn judith BEAULIEU [address] [facility] 2022-03-11 2022-03-11 Outpatient [facility] [id number] Univers 16:30:00 16:30:00 , FELIPE ity of [facility] 2022-03-11 2022-03-11 Orders Doctor NICOLE 1.2.840.114 [id number] Univers 00:00:00 00:00:00 Only Unassigned, VICKY 350.1.13.10 ity of [place] [facility] 4.2.7.2.686 [place] as [id number] [facility] [address] 2022-03-11 2022-03-11 Telephone Shalom [facility] 1.2.369.762 [id number] Univers 00:00:00 00:00:00 Bettie NG 350.1.13.10 i ty of [place].7.2.[place] [id number] Mn dical [address] 2022-03-10 2022-03-10 [facility] 1.2.840.114 [id number] Univers 15:11:33 23:59:00 Encounter , Felipe Y HEALTH 350.1.13.10 ity of CL[place]2.[place] [id number] [facility] [address] 2022-03-10 2022-03-10 [facility] 1.2.840.114 [id number] Univers 15:11:05 23:59:00 Encounter , Felipe Y HEALTH 350.1.13.10 ity of [place] [id number] [address] 2022-03-10 2022-03-10 [facility] 1.2.840.114 [id number] Univers 15:00:00 15:10:00 Encounter , Felipe Y HEALTH 350.1.13.10 ity [place] [id number] [address] 2022-03-10 2022-03-10 Outpatient R [facility] [id number] Univers 14:50:03 14:59:00 , FELIPE ity of [facility] 2022-03-10 2022-03-10 [facility] 1.2.840.114 [id number] Univers 14:45:00 14:59:00 Encounter , Felipe Y HEALTH 350.1.13.10 it[place] [id number] [facility] [address] 2022-03-09 2022-03-09 Telephone [facility] 1.2.840.114 [id number] Univers 00:00:00 00:00:00 , Felipe SPECIALTY 350.1.13.10 it[place] [id number] Mn judith BEAULIEU [address] [facility] 2022-03-08 2022-03-08 Telephone [facility] 1.2.840.114 [id number] Univers 00:00:00 00:00:00 , Felipe SPECIALTY 350.1.13.10 ity [place] 298.3850395 Mn judith BEAULIEU [address] [place] [address] 2022-03-03 2022-03-03 Outpatient R [facility] [id number] Univers 13:00:00 13:00:00 ity of [facility] 2022-03-01 2022-03-01 Outpatient [id number] 00:00:00 00:00:00 Visit [id number] -[id number] [id number] 9190-07-25 2022-03-01 Letter Testing, [facility] 1.2.840.114 [id number] Univers 00:00:00 00:00:00 (Out) Uhc Y HEALTH 350.1.13.10 i ty of Pulmonary [facility]IN[facility] [place].2.[place] [id number] Med ical [address] 2022-02-26 2022-02-26 Orders Doctor NICOLE 1.2.840.114 [id number] Univers 00:00:00 00:00:00 Only Unassigned, VICKY 350.1.13.10 ity of [place] [facility] 4.2.7.2.686 Neal as [id number] [facility] [address] 2022-02-25 2022-02-[address] [facility] 1.2.840.114 [id number] Univers 00:00:00 00:00:00 , Felipe SPECIALTY 350.1.13.10 it[place] [id number] Mn judith BEAULIEU [address] [facility] 2022-02-23 2022-02-23 Office Fellow, Pulmonary [facility] 1.2.84 0.114 [id number] Univers 08:00:00 09:00:00 Visit Sun Mack [facility] 350.1. 13.10 ity of CL[place].2.[place] [id number] [facility] [address] 2022-02-23 2022-02-23 Outpatient Laurie MACK [facility] [id number] Univers 08:00:00 08:00:00 SUN ruff [facility] 2022-02-16 2022-02-16 [facility] [id number] Univers 13:00:00 13:00:00 NATE [facility] 2022-02-10 2022-02-10 [facility] [id number] Univers 00:00:00 00:00:00 , [facility] 2022-02-10 2022-02-10 Outpatient [facility] [id number] Univers 00:00:00 00:00:00 , [facility] 2022-02-09 2022-02-09 Outpatient [id number] 00:00:00 00:00:00 Visit [id number] 3ff-4473-b -[id number]-gio [id number] [id number] 2022-02-05 2022-02-05 Outpatient [facility] [id number] Univers 09:00:00 09:00:00 SUN corbin [facility] 2022-02-05 2022-02-05 Outpatient [facility] [id number] Univers 09:00:00 09:00:00 SUN murcia o f [facility] 2022-01-18 2022-01-18 Outpatient R MINO [facility] [id number] Univers 00:00:00 00:00:00 , FELIPE ity [facility] 2022-01-18 2022-01-18 Outpatient R MINO [facility] [id number] Univers 00:00:00 00:00:00 , FELIPE murcia [facility] 2022-01-18 2022-01-18 [facility] 921 [id number] Univers 00:00:00 00:00:00 , FELIPE murcia [facility] 2022-01-05 2022-01-05 [facility] [id number] Univers 16:00:00 16:00:00 NATEORI murcia [facility] 2022-01-05 2022-01-05 Outpatient [facility] [id number] Univers 16:00:00 16:00:00 NATEORI murcia [facility] 2021-12-29 2021-12-29 Telephone [facility] 1.2.840.114 [id number] Univers 00:00:00 00:00:00 , Felipe SPECIALTY 350.1.13.10 it[place] [id number] Mn judith BEAULIEU [address] [place] [address] 2021-12-29 2021-12-29 Telephone [facility] 1.2.840.114 [id number] Univers 00:00:00 00:00:00 , Felipe SPECIALTY 350.1.13.10 ity [place]2.[place] [id number] Mn judith BEAULIEU [address] [place] [address] 2021-12-23 2021-12-23 Telephone [facility] 1.2.840.114 [id number] Univers 00:00:00 00:00:00 , Felipe SPECIALTY 350.1.13.10 ity [place] [id number] Mn judith BEAULIEU [address] [facility] 2021-12-17 2021-12-17 Outpatient R MINO [facility] [id number] Univers 13:46:31 23:59:00 , FELIPE ity [facility] 2021-12-17 2021-12-17 Hospital [facility] 1.2.840.114 [id number] Univers 13:46:31 23:59:00 Encounter , Felipe SPECIALTY 350.1.13.10 it[place] [id number] Mn judith BEAULIEU 809 [facility] 2021-12-17 2021-12-17 Outpatient [facility] [id number] Univers 13:46:31 23:59:00 , [facility] 2021-12-17 2021-12-17 Shellfish Checker Vls-Lab [facility] 1.2.840.114 [id number] Univers 16:45:00 17:00:00 Visit NikkievonKeithya SPECIALTY 350.1.13. 10 it[place] [phone] Mn judith BEAULIEU [address] [facility] 2021-12-17 2021-12-17 Outpatient R NIKKIMENDEZ [facility] [id number] Univers 13:45:00 16:36:26 , [facility] 2021-12-17 2021-12-17 Outpatient [facility] [id number] Univers 13:45:00 16:36:26 , [facility] 2021-12[facility] 2021-12-17 Office [facility] 1.2.840.114 [id number] Univers 13:45:00 16:36:26 Visit , Felipe SPECIALTY 350.1.13.10 it[place] [phone] Mn judith BEAULIEU [address] [facility] 2021-12-17 2021-12-17 Outpatient [facility] [id number] Univers 13:45:00 16:36:26 , FELIPE ity [facility] 2021-12-17 2021-12-[address] [facility] 1.2.840.114 [id number] Univers 13:45:00 16:36:26 Visit , Felipe SPECIALTY 350.1.13.10 it[place] [phone] Mn judith [address] 2021-12-17 2021-12-17 Outpatient R MINO [facility] [id number] Univers 13:45:00 13:45:00 , FELIPE ity [facility] 2021-11-17 2021-11-17 Orders Doctor NICOLE Yusuf2.840.114 [id number] Univers 00:00:00 00:00:00 Only Unassigned, VICKY 350.1.13.10 ity of [place] [facility] 4.2.7.2.686 [place] as [id number] [address] 2021-11-04 2021-11-04 Orders Doctor NICOLE Yusuf2.840.114 [id number] Univers 00:00:00 00:00:00 Only Unassigned, VICKY 350.1.13.10 ity of [place] [facility] 4.2.7.2.686 [place] as [id number] [address] 2021-10-19 2021-10-19 Orders Doctor NICOLE 1.2.840.114 [id number] Univers 00:00:00 00:00:00 Only Unassigned, VICKY 350.1.13.10 ity of [place] [facility] 4.2.7.2.686 [place] as [id number] [address] 2021-04-10 2021-04-10 Outpatient R TIMI [facility] [id number] Univers 10:00:00 10:00:00 PAGE murcia [facility] 2021-04-10 2021-04-10 Orders Doctor NICOLE [id number] [facility] 00:00:00 00:00:00 Only Unassigned, VICKY 350.1.13.10 [facility] 4.2.7.2.686 Neal as [phone] [facility] [address] 2021-04-09 2021-04-09 Emergency [facility] [id number] Univers 15:40:00 17:13:00 Junior Ng 350.1.13.10 [place] [id number] [facility] [address] 2021-04-09 2021-04-09 [facility] [id number] Univers 15:27:00 15:27:00 JUNIOR murcia [facility] 2020-06-27 2020-06-27 Outpatient G_Pappas [facility] [id number] [place] 12:50:00 12:50:00 120 [facility] Results Test Description Test Time Test Comments Results Result Comments Source C-REACTIVE PROTEIN 2023-01-27 15:46:22 Test Item Value Reference Range Interpretation Comme nts CRP (test code = 9419357210) 8.7 mg/dL <=0.8 H Lab Interpretation (test code = 76972-0) [id number] 09:42:48 Test Item Value Reference Range Interpretation Comments ESR (test code = 89 See_Comment H [Automated message] 03597-6) The system [employer] h generated this result transmitted ref erence range: 2 - 30 m m/HR. The reference r prasanth was not used to interpret this result as normal/abnor mal. Lab Interpretation (test Abnormal code = 73068-0) [facility] WITH [id number] 09:17:05 Test Item Value Reference Range Interpretation Comments WBC (test code = 8.86 See_Comment [Automated 1190-2) message] The sy stem which generated this result transmitted reference range : 4.30 - 11.10 10*3/?L. The reference range was not used to interpret this result as normal/abnormal . RBC (test code = 2.79 See_Comment L [Automated 489-8) message] The sy stem which generated this result transmitted reference range : 3.93 - 5.25 10*6/?L. The reference range was not used to interpret this result as normal/abnormal . HGB (test code = 8.2 g/dL 11.6-15.0 L 718-7) HCT (test code = 25.8 % 35.7-45.2 L 4544-3) MCV (test code = 92.5 fL 80.6-95.5 787-2) MCH (test code = 29.4 pg 25.9-32.8 785-6) MCHC (test code = 31.8 g/dL 31.6-35.1 786-4) RDW-SD (test code = 52.4 fL 39.0-49.9 H 26354-0) RDW-CV (test code = 15.5 % 12.0-15.5 788-0) PLT (test code = 576 See_Comment H [Automated 777-3) message] The sy stem which generated this result transmitted reference range : 166 - 358 10*3/ ?L. The reference r prasanth was not used to interpret this result as normal/abnormal . MPV (test code = 9.6 fL 9.5-12.9 85369-0) NRBC/100 WBC (test 0.2 See_Comment [Automat ed code = 2180983032) message] The system which generated this result transmitted reference range : 0.0 - 10.0 /100 WBCs. The refer ence range was not u sed to interpret th is result as normal/abnormal . NRBC x10^3 (test code 0.02 See_Comment [Auto mated = 4271901864) message] The s ystem which generated this result transmitted reference range : 10*3/?L. The reference range was not used to interpret this result as normal/abnormal . GRAN MAT (NEUT) % 67.4 % (test code = 770-8) IMM GRAN % (test code 1.20 % = 9172240431) LYMPH % (test code = 19.5 % 736-9) MONO % (test code = 9.9 % 5905-5) EOS % (test code = 1.7 % 713-8) BASO % (test code = 0.3 % 706-2) GRAN MAT x10^3(ANC) 5.96 10*3/uL 1.88-7.09 (test code = 9285434374) IMM GRAN x10^3 (test 0.11 10*3/uL 0.00-0.06 H code = 8079103393) LYMPH x10^3 (test code 1.73 10*3/uL 1.32-3.29 = 731-0) MONO x10^3 (test code 0.88 10*3/uL 0.33-0.92 = 742-7) EOS x10^3 (test code = 0.15 10*3/uL 0.03-0.39 711-2) BASO x10^3 (test code 0.03 10*3/uL 0.01-0.07 = 704-7) Lab Interpretation Abnormal (test code = 92893-7) [facility] Test Item Value Reference Interpretation Comments Range D-DIMER (test code = 1.08 See_Comment H [Autom ated 9063300765) message] The system which generated this result transmitted reference range : <0.50 ?g/mL (FEU). The reference range was not used to interpret this result as normal/abnormal . JULI (test code = This test may be JULI) used in conjunction with a clinical pretest [...] diagnosis. Lab Interpretation Abnormal (test code = 13550-8) [facility] WITHOUT IOEA7666-87-11 21:55:14 Test Item Value Reference Range Interpretation Comments WBC (test code = 6690-2) 11.37 See_Comment H [A utomated message] The system [employer] generated this result transmit paige reference range : 4.30 - 11.10 10*3/?L. The reference range was not used to interpret this result as normal/abnormal . RBC (test code = 789-8) 2.56 See_Comment L [Au tomated message] The system [employer] generated this result transmit paige reference range [...] 217 See_Comment [Au tomated message] The system [employer] generated this result transmit paige reference range : 166 - 358 10*3/?L. The reference range was not used to interpret this result as normal/abnormal . MPV (test code = 11.1 fL 9.5-12.9 66650-1) RDW-CV (test code = 15.3 % 12.0-15.5 788-0) RDW-SD (test code = 49.4 fL 39.0-49.9 31024-1) NRBC x10^3 (test code = 0.02 See_Comment [Au tomated message] 2329627318) The system [employer] generated this result transmit paige reference range : 10*3/?L. The reference range was not used to interpret this result as normal/abnormal . NRBC/100 WBC (test code 0.2 See_Comment [Au tomated message] = 5586018693) The system [facility] generated this result transmit paige reference range : 0.0 - 10.0 /100 WBC s. The reference r prasanth was not used to interpret this result as normal/abnormal . IPF % (test code = 2660460827) Lab Interpretation (test Abnormal code = 03320-6) [facility] METABOLIC PANEL (NA, K, CL, CO2, GLUCOSE, BUN, CREATININE, CA)2023-01-19 12:17:50 Test Item Value Reference Range Interpretation Comments NA (test code = 135 mmol/L 135-145 9766078676) K (test code = 3.9 mmol/L 3.5-5.0 0922098435) CL (test code = 106 mmol/L 98-108 8127848922) CO2 TOTAL (test code = 25 mmol/L 23-31 0512150825) AGAP (test code = 4 2-16 3686385310) BUN (test code = 9 mg/dL 7-23 2203411799) GLUCOSE (test code = 109 mg/dL 70-110 5344758820) CREATININE (test code = 0.57 mg/dL 0.50-1.04 9245089123) CALCIUM (test code = 7.4 mg/dL 8.6-10.6 L 4618525609) eGFR (test code = 111.8 mL/min/1.73m2 5318855200) JULI (test code = JULI) Association of [...] tests). Lab Interpretation Abnormal (test code = 54884-6) [facility] Test Item Value Reference Range Interpretation Comments MAGNESIUM (test code = 9218665800) 2.1 mg/dL 1.7-2.4 Lab Interpretation (test code = Normal 57885-9) [facility] 12:17:50 Test Item Value Reference Range Interpretation Comments PHOSPHORUS (test code = 8548181587) 2.2 mg/dL 2.5-5.0 L Lab Interpretation (test code = Abnormal 32460-5) [facility] OILD9703-93-32 12:01:08 Test Item Value Reference Range Interpretation Comments WBC (test code = 14.40 See_Comment H [Automated 6690-2) message] The system which generated this result transmit paige reference range : 4.30 - 11.10 10*3/?L. The reference range was not used to interpret this result as normal/abnormal . RBC (test code = 2.76 See_Comment L [Automated 789-8) message] The system which generated this result [...] (test code = 50.0 fL 39.0-49.9 H 38702-2) RDW-CV (test code = 15.6 % 12.0-15.5 H 788-0) PLT (test code = 177 See_Comment [Automated 777-3) message] The system which generated this result transmit paige reference range : 166 - 358 10*3/ ?L. The reference range was not u sed to interpret th is result as normal/abnormal . MPV (test code = 11.4 fL 9.5-12.9 15918-4) NRBC/100 WBC (test 0.0 See_Comment [Automat ed code = 0111787688) message] The system which generated this result transmit paige reference range : 0.0 - 10.0 /100 WBCs. The reference range was not used to interpret this result as normal/abnormal . NRBC x10^3 (test code See_Comment [Auto mated = 4792252051) message] The system which generated this result transmit paige reference range : 10*3/?L. The reference range was not used to interpret this result as normal/abnormal . GRAN MAT (NEUT) % 82.1 % (test code = 770-8) IMM GRAN % (test code 0.60 % = 6088830429) LYMPH % (test code = 9.4 % 736-9) MONO % (test code = 7.4 % 5905-5) EOS % (test code = 0.4 % 713-8) BASO % (test code = 0.1 % 706-2) GRAN MAT x10^3(ANC) 11.83 10*3/uL 1.88-7.09 H (test code = 3562753593) IMM GRAN x10^3 (test 0.08 10*3/uL 0.00-0.06 H code = 4507405065) LYMPH x10^3 (test code 1.35 10*3/uL 1.32-3.29 = 731-0) MONO x10^3 (test code 1.06 10*3/uL 0.33-0.92 H = 742-7) EOS x10^3 (test code = 0.06 10*3/uL 0.03-0.39 711-2) BASO x10^3 (test code 0.01-0.07 = 704-7) Lab Interpretation Abnormal (test code = 91951-4) [facility] Packed RBC (in units), 2 Units 2023-01-18 02:43:04 Test Item Value Reference Range Interpretation Comments Cross Match Result Compatible (test code = 4409) ISBT Blood Type Code 6200 (test code = 639775) Unit Blood Type (test A Pos code = 4410) Unit Number (test [id number] code = 4411) Blood Expiration Date & Time (test code = 814971) Status Information Returned from (test code = 4412) Issue Product Red Blood Cells Identification (test code = 4413) Product Code (test M1363H12 Performed at code = 4414) [facility] Blood [address] [place] [address] Free: [phone] A No. [id number] [facility] (in units), 2 Units 2023-01-18 02:43:04 Test Item Value Reference Range Interpretation Comments Cross Match Result Compatible (test code = 4409) ISBT Blood Type Code 6200 (test code = 364193) Unit Blood Type (test A Pos code = 4410) Unit Number (test [id number] code = 4411) Blood Expiration Date & Time (test code = 715373) Status Information Returned from (test code = 4412) Issue Product Red Blood Cells Identification (test code = 4413) Product Code (test N3602T98 Performed at code = 4414) [facility] Blood [address] [address] Free: [phone] A No. [id number] [facility]+K+GLU[facility]CA2+2023-01-18 02:05:53 Test Item Value Reference Range Interpretation Comments PH (test code = 2) 7.36 7.35-7.45 PCO2 (test code = 31 See_Comment L [Automate d message] 4589446341) The system [employer] generated this result transmit paige reference range : 35 - 45 mmHg. The reference range was not used to interpret this result as normal/abnormal . PO2 (test code = 153 See_Comment H [Automated message] 9434623487) The system [employer] generated this result transmit paige reference range : 80 - 100 mmHg. The reference range was not used to interpret this result as normal/abnormal . HCO3 (test code = 17 See_Comment L [Automate d message] 9917649609) The system [employer] generated this result transmit paige reference range : 22 - 26 mEq/L. The reference range was not used to interpret this result as normal/abnormal . BE (test code = -7.4 See_Comment L [Automated message] 9393434152) The system [employer] generated this result transmit paige reference range : -3.0 - 3.0 mEq/ L. The reference r prasanth was not used to interpret this result as normal/abnormal . THB (test code = 9.0 g/dL 12.0-16.0 L 4844211509) %O2HB (test code = 97.7 % 94.0-99.0 6512397768) %COHB ART (test code = 0.3 % 0.0-1.5 5264591690) %METHB ART (test code = 0.2 % 0.4-1.5 L 9258926358) VOL%O2 ART (test code = 12.7 % 15.0-23.0 L QUES 7630967476) NA (test code = 135 mmol/L 135-145 6633751142) K+ (test code = 4.0 mmol/L 3.5-5.0 2970158023) AC CA IONZ (test code = 4.90 mg/dL 4.50-5.30 3452839896) GLUCOSE (test code = 133 mg/dL 70-110 H 1288814248) Lab Interpretation Abnormal (test code = 40525-5) [facility]CA2+2023-01-18 02:05:53 Test Item Value Reference Range Interpretation Comments PH (test code = 2) 7.36 7.35-7.45 PCO2 (test code = 31 See_Comment L [Automate d message] 1625168245) The system [employer] generated this result transmit paige reference range : 35 - 45 mmHg. The reference range was not used to interpret this result as normal/abnormal . PO2 (test code = 153 See_Comment H [Automated message] 2645168458) The system [employer] generated this result transmit paige reference range : 80 - 100 mmHg. The reference range was not used to interpret this result as normal/abnormal . HCO3 (test code = 17 See_Comment L [Automate d message] 9036080706) The system [employer] generated this result transmit paige reference range : 22 - 26 mEq/L. The reference range was not used to interpret this result as normal/abnormal . BE (test code = -7.4 See_Comment L [Automated message] 2854156090) The system [employer] generated this result transmit paige reference range : -3.0 - 3.0 mEq/ L. The reference r prasanth was not used to interpret this result as normal/abnormal . THB (test code = 9.0 g/dL 12.0-16.0 L 8886872428) %O2HB (test code = 97.7 % 94.0-99.0 5064180479) %COHB ART (test code = 0.3 % 0.0-1.5 2095906744) %METHB ART (test code = 0.2 % 0.4-1.5 L 8492174874) VOL%O2 ART (test code = 12.7 % 15.0-23.0 L QUES 4461831288) NA (test code = 135 mmol/L 135-145 8961408596) K+ (test code = 4.0 mmol/L 3.5-5.0 3836867278) AC CA IONZ (test code = 4.90 mg/dL 4.50-5.30 5138424911) GLUCOSE (test code = 133 mg/dL 70-110 H 3300100792) Lab Interpretation Abnormal (test code = 58604-3) [facility]-18 02:05:38 Test Item Value Reference Range Interpretation Comments PH (test code = 2) 7.36 7.35-7.45 PCO2 (test code = 31 See_Comment L [Automate d message] 4705298265) The system [employer] generated this result transmit paige reference range : 35 - 45 mmHg. The reference range was not used to interpret this result as normal/abnormal . PO2 (test code = 155 See_Comment H [Automated message] 4514108667) The system [employer] generated this result transmit paige reference range : 80 - 100 mmHg. The reference range was not used to interpret this result as normal/abnormal . HCO3 (test code = 17 See_Comment L [Automate d message] 5998160667) The system [employer] generated this result transmit paige reference range : 22 - 26 mEq/L. The reference range was not used to interpret this result as normal/abnormal . BE (test code = -7.7 See_Comment L [Automated message] 0092580105) The system [employer] generated this result transmit paige reference range : -3.0 - 3.0 mEq/ L. The reference r prasanth was not used to interpret this result as normal/abnormal . THB (test code = 7.8 g/dL 12.0-16.0 LL 9597356188) %O2HB (test code = 98.2 % 94.0-99.0 0027489303) %COHB ART (test code = 0.0 % 0.0-1.5 4970603119) %METHB ART (test code = 0.3 % 0.4-1.5 L 9426520216) VOL%O2 ART (test code = 11.1 % 15.0-23.0 L QUES 7543806096) NA (test code = 135 mmol/L 135-145 2650069563) K+ (test code = 3.6 mmol/L 3.5-5.0 7628151453) AC CA IONZ (test code = 4.40 mg/dL 4.50-5.30 L 3478962207) GLUCOSE (test code = 121 mg/dL 70-110 H 1599137768) Lab Interpretation Abnormal (test code = 93608-7) [facility]-18 02:05:38 Test Item Value Reference Range Interpretation Comments PH (test code = 2) 7.36 7.35-7.45 PCO2 (test code = 31 See_Comment L [Automate d message] 6447513805) The system [employer] generated this result transmit paige reference range : 35 - 45 mmHg. The reference range was not used to interpret this result as normal/abnormal . PO2 (test code = 155 See_Comment H [Automated message] 1846895974) The system [employer] generated this result transmit paige reference range : 80 - 100 mmHg. The reference range was not used to interpret this result as normal/abnormal . HCO3 (test code = 17 See_Comment L [Automate d message] 5719081221) The system [employer] generated this result transmit paige reference range : 22 - 26 mEq/L. The reference range was not used to interpret this result as normal/abnormal . BE (test code = -7.7 See_Comment L [Automated message] 3730379690) The system [employer] generated this result transmit paige reference range : -3.0 - 3.0 mEq/ L. The reference r prasanth was not used to interpret this result as normal/abnormal . THB (test code = 7.8 g/dL 12.0-16.0 LL 2222322663) %O2HB (test code = 98.2 % 94.0-99.0 3193331431) %COHB ART (test code = 0.0 % 0.0-1.5 2008065464) %METHB ART (test code = 0.3 % 0.4-1.5 L 0051370287) VOL%O2 ART (test code = 11.1 % 15.0-23.0 L QUES 3681270311) NA (test code = 135 mmol/L 135-145 3609819718) K+ (test code = 3.6 mmol/L 3.5-5.0 3183477037) AC CA IONZ (test code = 4.40 mg/dL 4.50-5.30 L 5049589520) GLUCOSE (test code = 121 mg/dL 70-110 H 7075193287) Lab Interpretation Abnormal (test code = 14825-9) [facility] 01:59:13 Test Item Value Reference Range Interpretation Comments PH (test code = 2) 7.37 7.35-7.45 PCO2 (test code = 31 See_Comment L [Automate d message] 1605365008) The system [employer] generated this result transmit paige reference range : 35 - 45 mmHg. The reference range was not used to interpret this result as normal/abnormal . PO2 (test code = 191 See_Comment H [Automated message] 5500932233) The system [employer] generated this result transmit paige reference range : 80 - 100 mmHg. The reference range was not used to interpret this result as normal/abnormal . HCO3 (test code = 17 See_Comment L [Automate d message] 0700187414) The system [employer] generated this result transmit paige reference range : 22 - 26 mEq/L. The reference range was not used to interpret this result as normal/abnormal . BE (test code = -6.9 See_Comment L [Automated message] 7621444536) The system [employer] generated this result transmit paige reference range : -3.0 - 3.0 mEq/ L. The reference r prasanth was not used to interpret this result as normal/abnormal . THB (test code = 9.2 g/dL 12.0-16.0 L 4847358557) %O2HB (test code = 98.7 % 94.0-99.0 6737031919) %COHB ART (test code = 0.1 % 0.0-1.5 0430183924) %METHB ART (test code = 0.3 % 0.4-1.5 L 9309892367) VOL%O2 ART (test code = 13.2 % 15.0-23.0 L QUES 8955730315) NA (test code = 136 mmol/L 135-145 2917893337) K+ (test code = 3.8 mmol/L 3.5-5.0 9499219585) AC CA IONZ (test code = 4.60 mg/dL 4.50-5.30 4957674478) GLUCOSE (test code = 113 mg/dL 70-110 H 9921596178) Lab Interpretation Abnormal (test code = 31397-9) [facility]CA2[facility]-18 01:59:13 Test Item Value Reference Range Interpretation Comments PH (test code = 2) 7.37 7.35-7.45 PCO2 (test code = 31 See_Comment L [Automate d message] 9892664973) The system [employer] generated this result transmit paige reference range : 35 - 45 mmHg. The reference range was not used to interpret this result as normal/abnormal . PO2 (test code = 191 See_Comment H [Automated message] 6939365635) The system [employer] generated this result transmit paige reference range : 80 - 100 mmHg. The reference range was not used to interpret this result as normal/abnormal . HCO3 (test code = 17 See_Comment L [Automate d message] 9884641673) The system [employer] generated this result transmit paige reference range : 22 - 26 mEq/L. The reference range was not used to interpret this result as normal/abnormal . BE (test code = -6.9 See_Comment L [Automated message] 0992753915) The system [employer] generated this result transmit paige reference range : -3.0 - 3.0 mEq/ L. The reference r prasanth was not used to interpret this result as normal/abnormal . THB (test code = 9.2 g/dL 12.0-16.0 L 9505339406) %O2HB (test code = 98.7 % 94.0-99.0 1529770426) %COHB ART (test code = 0.1 % 0.0-1.5 1618444643) %METHB ART (test code = 0.3 % 0.4-1.5 L 2154278259) VOL%O2 ART (test code = 13.2 % 15.0-23.0 L QUES 5565764411) NA (test code = 136 mmol/L 135-145 9516125410) K+ (test code = 3.8 mmol/L 3.5-5.0 2829326891) AC CA IONZ (test code = 4.60 mg/dL 4.50-5.30 6346687213) GLUCOSE (test code = 113 mg/dL 70-110 H 9806311412) Lab Interpretation Abnormal (test code = 48390-7) [facility]GLU[facility]CA2[facility]-18 01:58:53 Test Item Value Reference Range Interpretation Comments PH (test code = 2) 7.34 7.35-7.45 L PCO2 (test code = 41 See_Comment [Automate d message] 8645329935) The system [employer] generated this result transmit paige reference range : 35 - 45 mmHg. The reference range was not used to interpret this result as normal/abnormal . PO2 (test code = 203 See_Comment H [Automated message] 5830418855) The system [employer] generated this result transmit paige reference range : 80 - 100 mmHg. The reference range was not used to interpret this result as normal/abnormal . HCO3 (test code = 21 See_Comment L [Automate d message] 9734357880) The system [employer] generated this result transmit paige reference range : 22 - 26 mEq/L. The reference range was not used to interpret this result as normal/abnormal . BE (test code = -4.3 See_Comment L [Automated message] 5287669351) The system [employer] generated this result transmit paige reference range : -3.0 - 3.0 mEq/ L. The reference r prasanth was not used to interpret this result as normal/abnormal . THB (test code = 10.9 g/dL 12.0-16.0 L 1764136503) %O2HB (test code = 98.4 % 94.0-99.0 9398640566) %COHB ART (test code = 0.3 % 0.0-1.5 3664292053) %METHB ART (test code = 0.1 % 0.4-1.5 L 1042606527) VOL%O2 ART (test code = 15.5 % 15.0-23.0 QUES 3782489139) NA (test code = 136 mmol/L 135-145 2840094319) K+ (test code = 3.4 mmol/L 3.5-5.0 L 6999050649) AC CA IONZ (test code = 4.60 mg/dL 4.50-5.30 8558254165) GLUCOSE (test code = 98 mg/dL 70-110 7239838005) Lab Interpretation Abnormal (test code = 26729-0) [facility] 01:58:53 Test Item Value Reference Range Interpretation Comments PH (test code = 2) 7.34 7.35-7.45 L PCO2 (test code = 41 See_Comment [Automate d message] 7527232466) The system [employer] generated this result transmit paige reference range : 35 - 45 mmHg. The reference range was not used to interpret this result as normal/abnormal . PO2 (test code = 203 See_Comment H [Automated message] 7023250597) The system [employer] generated this result transmit paige reference range : 80 - 100 mmHg. The reference range was not used to interpret this result as normal/abnormal . HCO3 (test code = 21 See_Comment L [Automate d message] 5281247444) The system [employer] generated this result transmit paige reference range : 22 - 26 mEq/L. The reference range was not used to interpret this result as normal/abnormal . BE (test code = -4.3 See_Comment L [Automated message] 7305002533) The system [employer] generated this result transmit paige reference range : -3.0 - 3.0 mEq/ L. The reference r prasanth was not used to interpret this result as normal/abnormal . THB (test code = 10.9 g/dL 12.0-16.0 L 2108102077) %O2HB (test code = 98.4 % 94.0-99.0 4747197355) %COHB ART (test code = 0.3 % 0.0-1.5 4153269434) %METHB ART (test code = 0.1 % 0.4-1.5 L 4640037162) VOL%O2 ART (test code = 15.5 % 15.0-23.0 QUES 8524341342) NA (test code = 136 mmol/L 135-145 9242298301) K+ (test code = 3.4 mmol/L 3.5-5.0 L 3212097921) AC CA IONZ (test code = 4.60 mg/dL 4.50-5.30 5004460250) GLUCOSE (test code = 98 mg/dL 70-110 8868471451) Lab Interpretation Abnormal (test code = 39090-7) [facility] 01:58:38 Test Item Value Reference Range Interpretation Comments PH (test code = 2) 7.39 7.35-7.45 PCO2 (test code = 33 See_Comment L [Automate d message] 0217021244) The system [employer] generated this result transmit paige reference range : 35 - 45 mmHg. The reference range was not used to interpret this result as normal/abnormal . PO2 (test code = 221 See_Comment H [Automated message] 7866889828) The system [employer] generated this result transmit paige reference range : 80 - 100 mmHg. The reference range was not used to interpret this result as normal/abnormal . HCO3 (test code = 19 See_Comment L [Automate d message] 8952189553) The system [employer] generated this result transmit paige reference range : 22 - 26 mEq/L. The reference range was not used to interpret this result as normal/abnormal . BE (test code = -4.8 See_Comment L [Automated message] 2371157355) The system [employer] generated this result transmit paige reference range : -3.0 - 3.0 mEq/ L. The reference r prasanth was not used to interpret this result as normal/abnormal . THB (test code = 10.7 g/dL 12.0-16.0 L 6622545905) %O2HB (test code = 98.5 % 94.0-99.0 2806842763) %COHB ART (test code = 0.3 % 0.0-1.5 6109158077) %METHB ART (test code = 0.1 % 0.4-1.5 L 2349355409) VOL%O2 ART (test code = 15.3 % 15.0-23.0 QUES 2822033423) NA (test code = 136 mmol/L 135-145 4989465614) K+ (test code = 3.6 mmol/L 3.5-5.0 3489500157) AC CA IONZ (test code = 4.60 mg/dL 4.50-5.30 2036694526) GLUCOSE (test code = 102 mg/dL 70-110 5904813953) Lab Interpretation Abnormal (test code = 57442-0) [facility] 01:58:38 Test Item Value Reference Range Interpretation Comments PH (test code = 2) 7.39 7.35-7.45 PCO2 (test code = 33 See_Comment L [Automate d message] 0212390513) The system [employer] generated this result transmit paige reference range : 35 - 45 mmHg. The reference range was not used to interpret this result as normal/abnormal . PO2 (test code = 221 See_Comment H [Automated message] 9632341757) The system [employer] generated this result transmit paige reference range : 80 - 100 mmHg. The reference range was not used to interpret this result as normal/abnormal . HCO3 (test code = 19 See_Comment L [Automate d message] 4765757684) The system [employer] generated this result transmit paige reference range : 22 - 26 mEq/L. The reference range was not used to interpret this result as normal/abnormal . BE (test code = -4.8 See_Comment L [Automated message] 3623676517) The system [employer] generated this result transmit paige reference range : -3.0 - 3.0 mEq/ L. The reference r prasanth was not used to interpret this result as normal/abnormal . THB (test code = 10.7 g/dL 12.0-16.0 L 3261565826) %O2HB (test code = 98.5 % 94.0-99.0 2722401493) %COHB ART (test code = 0.3 % 0.0-1.5 8780014959) %METHB ART (test code = 0.1 % 0.4-1.5 L 8956381650) VOL%O2 ART (test code = 15.3 % 15.0-23.0 QUES 6354234469) NA (test code = 136 mmol/L 135-145 1989410797) K+ (test code = 3.6 mmol/L 3.5-5.0 4131689736) AC CA IONZ (test code = 4.60 mg/dL 4.50-5.30 3148396390) GLUCOSE (test code = 102 mg/dL 70-110 8356810903) Lab Interpretation Abnormal (test code = 78990-0) [facility] 01:53:50 Test Item Value Reference Range Interpretation Comments PH (test code = 2) 7.38 7.35-7.45 PCO2 (test code = 33 See_Comment L [Automate d message] 2961674873) The system [employer] generated this result transmit paige reference range : 35 - 45 mmHg. The reference range was not used to interpret this result as normal/abnormal . PO2 (test code = 183 See_Comment H [Automated message] 4674238884) The system Unata generated this result transmit paige reference range : 80 - 100 mmHg. The reference range was not used to interpret this result as normal/abnormal . HCO3 (test code = 19 See_Comment L [Automate d message] [id number]) The system Unata generated this result transmit paige reference range : 22 - 26 mEq/L. The reference range was not used to interpret this result as normal/abnormal . BE (test code = -5.3 See_Comment L [Automated message] 7764190432) The system Unata generated this result transmit paige reference range : -3.0 - 3.0 mEq/ L. The reference r prasanth was not used to interpret this result as normal/abnormal . THB (test code = 7.8 g/dL 12.0-16.0 LL 5711968040) %O2HB (test code = 97.7 % 94.0-99.0 0914887623) %COHB ART (test code = 0.7 % 0.0-1.5 2041763976) %METHB ART (test code = 0.4 % 0.4-1.5 2170381243) VOL%O2 ART (test code = 11.2 % 15.0-23.0 L QUES 8405159066) NA (test code = 129 mmol/L 135-145 L 0711106506) K+ (test code = 3.7 mmol/L 3.5-5.0 3678543479) AC CA IONZ (test code = 4.30 mg/dL 4.50-5.30 L 5907805043) GLUCOSE (test code = 128 mg/dL 70-110 H 5648470801) Lab Interpretation Abnormal (test code = 98358-5) [facility] 01:53:50 Test Item Value Reference Range Interpretation Comments PH (test code = 2) 7.38 7.35-7.45 PCO2 (test code = 33 See_Comment L [Automate d message] 2875930413) The system Unata generated this result transmit paige reference range : 35 - 45 mmHg. The reference range was not used to interpret this result as normal/abnormal . PO2 (test code = 183 See_Comment H [Automated message] 4486720013) The system Unata generated this result transmit paige reference range : 80 - 100 mmHg. The reference range was not used to interpret this result as normal/abnormal . HCO3 (test code = 19 See_Comment L [Automate d message] 3718250004) The system Unata generated this result transmit paige reference range : 22 - 26 mEq/L. The reference range was not used to interpret this result as normal/abnormal . BE (test code = -5.3 See_Comment L [Automated message] 8465623709) The system Unata generated this result transmit paige reference range : -3.0 - 3.0 mEq/ L. The reference r prasanth was not used to interpret this result as normal/abnormal . THB (test code = 7.8 g/dL 12.0-16.0 LL 0697122020) %O2HB (test code = 97.7 % 94.0-99.0 7376743158) %COHB ART (test code = 0.7 % 0.0-1.5 4289657458) %METHB ART (test code = 0.4 % 0.4-1.5 0873470861) VOL%O2 ART (test code = 11.2 % 15.0-23.0 L QUES 6208134829) NA (test code = 129 mmol/L 135-145 L 5460167859) K+ (test code = 3.7 mmol/L 3.5-5.0 3095881530) AC CA IONZ (test code = 4.30 mg/dL 4.50-5.30 L 0326241550) GLUCOSE (test code = 128 mg/dL 70-110 H 4946824491) Lab Interpretation Abnormal (test code = 34448-5) [facility] 01:53:14 Test Item Value Reference Range Interpretation Comments PH (test code = 2) 7.38 7.35-7.45 PCO2 (test code = 33 See_Comment L [Automate d message] 2361149555) The system Unata generated this result transmit paige reference range : 35 - 45 mmHg. The reference range was not used to interpret this result as normal/abnormal . PO2 (test code = 209 See_Comment H [Automated message] 7887091814) The system Unata generated this result transmit paige reference range : 80 - 100 mmHg. The reference range was not used to interpret this result as normal/abnormal . HCO3 (test code = 19 See_Comment L [Automate d message] 2079197255) The system Unata generated this result transmit paige reference range : 22 - 26 mEq/L. The reference range was not used to interpret this result as normal/abnormal . BE (test code = -5.2 See_Comment L [Automated message] 9766455801) The system Unata generated this result transmit paige reference range : -3.0 - 3.0 mEq/ L. The reference r prasanth was not used to interpret this result as normal/abnormal . THB (test code = 8.2 g/dL 12.0-16.0 LL 8907804804) %O2HB (test code = 98.3 % 94.0-99.0 0868874824) %COHB ART (test code = 0.6 % 0.0-1.5 6810463115) %METHB ART (test code = 0.5 % 0.4-1.5 4860191743) VOL%O2 ART (test code = 11.9 % 15.0-23.0 L QUES 8089299020) NA (test code = 134 mmol/L 135-145 L 1604520866) K+ (test code = 3.7 mmol/L 3.5-5.0 6459426874) AC CA IONZ (test code = 4.50 mg/dL 4.50-5.30 4025391130) GLUCOSE (test code = 137 mg/dL 70-110 H 7250030376) Lab Interpretation Abnormal (test code = 89823-2) [facility] 01:53:14 Test Item Value Reference Range Interpretation Comments PH (test code = 2) 7.38 7.35-7.45 PCO2 (test code = 33 See_Comment L [Automate d message] 0694816314) The system Unata generated this result transmit paige reference range : 35 - 45 mmHg. The reference range was not used to interpret this result as normal/abnormal . PO2 (test code = 209 See_Comment H [Automated message] 6010667907) The system Unata generated this result transmit paige reference range : 80 - 100 mmHg. The reference range was not used to interpret this result as normal/abnormal . HCO3 (test code = 19 See_Comment L [Automate d message] 6228098881) The system Unata generated this result transmit paige reference range : 22 - 26 mEq/L. The reference range was not used to interpret this result as normal/abnormal . BE (test code = -5.2 See_Comment L [Automated message] 3005622116) The system Unata generated this result transmit paige reference range : -3.0 - 3.0 mEq/ L. The reference r prasanth was not used to interpret this result as normal/abnormal . THB (test code = 8.2 g/dL 12.0-16.0 LL 9923079904) %O2HB (test code = 98.3 % 94.0-99.0 3507757737) %COHB ART (test code = 0.6 % 0.0-1.5 0737269215) %METHB ART (test code = 0.5 % 0.4-1.5 2865453232) VOL%O2 ART (test code = 11.9 % 15.0-23.0 L QUES 8749611449) NA (test code = 134 mmol/L 135-145 L 7606460074) K+ (test code = 3.7 mmol/L 3.5-5.0 1776301149) AC CA IONZ (test code = 4.50 mg/dL 4.50-5.30 3959822948) GLUCOSE (test code = 137 mg/dL 70-110 H 7719650191) Lab Interpretation Abnormal (test code = 25324-8) [facility] 01:44:26 Test Item Value Reference Range Interpretation Comments PH (test code = 2) 7.36 7.35-7.45 PCO2 (test code = 34 See_Comment L [Automate d message] 9156780455) The system Unata generated this result transmit paige reference range : 35 - 45 mmHg. The reference range was not used to interpret this result as normal/abnormal . PO2 (test code = 153 See_Comment H [Automated message] 9542988381) The system Unata generated this result transmit paige reference range : 80 - 100 mmHg. The reference range was not used to interpret this result as normal/abnormal . HCO3 (test code = 19 See_Comment L [Automate d message] 9627820661) The system Unata generated this result transmit paige reference range : 22 - 26 mEq/L. The reference range was not used to interpret this result as normal/abnormal . BE (test code = -6.2 See_Comment L [Automated message] 8683504119) The system Unata generated this result transmit paige reference range : -3.0 - 3.0 mEq/ L. The reference r prasanth was not used to interpret this result as normal/abnormal . THB (test code = 8.2 g/dL 12.0-16.0 LL 0139939539) %O2HB (test code = 98.3 % 94.0-99.0 2991819636) %COHB ART (test code = 0.3 % 0.0-1.5 2157774817) %METHB ART (test code = 0.1 % 0.4-1.5 L 2534414253) VOL%O2 ART (test code = 11.7 % 15.0-23.0 L QUES 2631994501) NA (test code = 134 mmol/L 135-145 L 3812759826) K+ (test code = 4.0 mmol/L 3.5-5.0 9258684926) AC CA IONZ (test code = 5.30 mg/dL 4.50-5.30 7547979158) GLUCOSE (test code = 142 mg/dL 70-110 H 5371211225) Lab Interpretation Abnormal (test code = 33235-1) [facility] 01:44:26 Test Item Value Reference Range Interpretation Comments PH (test code = 2) 7.36 7.35-7.45 PCO2 (test code = 34 See_Comment L [Automate d message] 7781291750) The system Unata generated this result transmit paige reference range : 35 - 45 mmHg. The reference range was not used to interpret this result as normal/abnormal . PO2 (test code = 153 See_Comment H [Automated message] 4953540974) The system Unata generated this result transmit paige reference range : 80 - 100 mmHg. The reference range was not used to interpret this result as normal/abnormal . HCO3 (test code = 19 See_Comment L [Automate d message] 8849382053) The system Unata generated this result transmit paige reference range : 22 - 26 mEq/L. The reference range was not used to interpret this result as normal/abnormal . BE (test code = -6.2 See_Comment L [Automated message] 1319192798) The system Unata generated this result transmit paige reference range : -3.0 - 3.0 mEq/ L. The reference r prasanth was not used to interpret this result as normal/abnormal . THB (test code = 8.2 g/dL 12.0-16.0 LL 2452362869) %O2HB (test code = 98.3 % 94.0-99.0 4759570335) %COHB ART (test code = 0.3 % 0.0-1.5 3951119034) %METHB ART (test code = 0.1 % 0.4-1.5 L 7218096736) VOL%O2 ART (test code = 11.7 % 15.0-23.0 L QUES 5855256592) NA (test code = 134 mmol/L 135-145 L 2841856053) K+ (test code = 4.0 mmol/L 3.5-5.0 7906829848) AC CA IONZ (test code = 5.30 mg/dL 4.50-5.30 8199787862) GLUCOSE (test code = 142 mg/dL 70-110 H 5401466693) Lab Interpretation Abnormal (test code = 52145-1) [facility] 01:43:21 Test Item Value Reference Range Interpretation Comments PH (test code = 2) 7.35 7.35-7.45 PCO2 (test code = 40 See_Comment [Automate d message] 3550765064) The system Unata generated this result transmit paige reference range : 35 - 45 mmHg. The reference range was not used to interpret this result as normal/abnormal . PO2 (test code = 182 See_Comment H [Automated message] 8670211836) The system Unata generated this result transmit paige reference range : 80 - 100 mmHg. The reference range was not used to interpret this result as normal/abnormal . HCO3 (test code = 22 See_Comment [Automate d message] 8346315951) The system Unata generated this result transmit paige reference range : 22 - 26 mEq/L. The reference range was not used to interpret this result as normal/abnormal . BE (test code = -3.5 See_Comment L [Automated message] 7703704423) The system Unata generated this result transmit paige reference range : -3.0 - 3.0 mEq/ L. The reference r prasanth was not used to interpret this result as normal/abnormal . THB (test code = 11.1 g/dL 12.0-16.0 L 0527242040) %O2HB (test code = 98.1 % 94.0-99.0 9865212513) %COHB ART (test code = 0.3 % 0.0-1.5 5962576736) %METHB ART (test code = 0.3 % 0.4-1.5 L 9520958516) VOL%O2 ART (test code = 15.7 % 15.0-23.0 QUES 0912534773) NA (test code = 137 mmol/L 135-145 2561017580) K+ (test code = 3.1 mmol/L 3.5-5.0 L 2413391721) AC CA IONZ (test code = 4.70 mg/dL 4.50-5.30 6630186809) GLUCOSE (test code = 111 mg/dL 70-110 H 6065647836) Lab Interpretation Abnormal (test code = 59039-7) [facility] 01:43:21 Test Item Value Reference Range Interpretation Comments PH (test code = 2) 7.35 7.35-7.45 PCO2 (test code = 40 See_Comment [Automate d message] 1752522039) The system Unata generated this result transmit paige reference range : 35 - 45 mmHg. The reference range was not used to interpret this result as normal/abnormal . PO2 (test code = 182 See_Comment H [Automated message] 3468394627) The system Unata generated this result transmit paige reference range : 80 - 100 mmHg. The reference range was not used to interpret this result as normal/abnormal . HCO3 (test code = 22 See_Comment [Automate d message] 6867498328) The system Unata generated this result transmit paige reference range : 22 - 26 mEq/L. The reference range was not used to interpret this result as normal/abnormal . BE (test code = -3.5 See_Comment L [Automated message] 9921273123) The system Unata generated this result transmit paige reference range : -3.0 - 3.0 mEq/ L. The reference r prasanth was not used to interpret this result as normal/abnormal . THB (test code = 11.1 g/dL 12.0-16.0 L 8918076108) %O2HB (test code = 98.1 % 94.0-99.0 6007468368) %COHB ART (test code = 0.3 % 0.0-1.5 1398483049) %METHB ART (test code = 0.3 % 0.4-1.5 L 3337854261) VOL%O2 ART (test code = 15.7 % 15.0-23.0 QUES 0811827557) NA (test code = 137 mmol/L 135-145 1502361984) K+ (test code = 3.1 mmol/L 3.5-5.0 L 3821208901) AC CA IONZ (test code = 4.70 mg/dL 4.50-5.30 0276519861) GLUCOSE (test code = 111 mg/dL 70-110 H 8423079386) Lab Interpretation Abnormal (test code = 48073-6) [facility] Packed RBC (in units), 1 Units 2023-01-17 22:41:13 Test Item Value Reference Range Interpretation Comments Cross Match Result Compatible (test code = 4409) ISBT Blood Type Code 6200 (test code = 935547) Unit Blood Type (test A Pos code = 4410) Unit Number (test [id number] code = 4411) Blood Expiration Date [id number] & Time (test code = 563166) Status Information Issued (test code = 4412) Product Red Blood Cells Identification (test code = 4413) Product Code (test [id number] Performed at [facility] code = 4414) Laboratory Services - [facility] Blood [address] [place] [address]Lauc Free: [phone] A No. [id number] [facility] Packed RBC (in units), 1 Units 2023-01-17 22:41:13 Test Item Value Reference Range Interpretation Comments Cross Match Result Compatible (test code = 4409) ISBT Blood Type Code 6200 (test code = 866250) Unit Blood Type (test A Pos code = 4410) Unit Number (test [id number] code = 4411) Blood Expiration Date [id number] & Time (test code = 529576) Status Information Issued (test code = 4412) Product Red Blood Cells Identification (test code = 4413) Product Code (test [id number] Performed at [facility] code = 4414) Laboratory Services - [facility] Blood [address] [address]Hvnx Free: [phone] A No. [id number] [facility] WITHOUT [id number] 21:49:46 Test Item Value Reference Range Interpretation Comments WBC (test code = 6690-2) 9.66 See_Comment [A utomated message] The system Unata generated this result transmit paige reference range : 4.30 - 11.10 10*3/?L. The reference range was not used to interpret this result as normal/abnormal . RBC (test code = 789-8) 2.55 See_Comment L [Au tomated message] The system Unata generated this result transmit paige reference range [...] 208 See_Comment [Au tomated message] The system Unata generated this result transmit paige reference range : 166 - 358 10*3/?L. The reference range was not used to interpret this result as normal/abnormal . MPV (test code = 10.9 fL 9.5-12.9 20669-5) RDW-CV (test code = 14.8 % 12.0-15.5 788-0) RDW-SD (test code = 48.9 fL 39.0-49.9 80094-1) NRBC x10^3 (test code = See_Comment [Au tomated message] 8670194392) The system Unata generated this result transmit paige reference range : 10*3/?L. The reference range was not used to interpret this result as normal/abnormal . NRBC/100 WBC (test code 0.0 See_Comment [Au tomated message] = 6169228059) The system Leotus generated this result transmit paige reference range : 0.0 - 10.0 /100 WBC s. The reference r prasanth was not used to interpret this result as normal/abnormal . IPF % (test code = 8145733977) Lab Interpretation (test Abnormal code = 76987-8) [facility] WITHOUT [id number] 21:49:46 Test Item Value Reference Range Interpretation Comments WBC (test code = 6690-2) 9.66 See_Comment [A utomated message] The system Unata generated this result transmit paige reference range : 4.30 - 11.10 10*3/?L. The reference range was not used to interpret this result as normal/abnormal . RBC (test code = 789-8) 2.55 See_Comment L [Au tomated message] The system Unata generated this result transmit paige reference range [...] 208 See_Comment [Au tomated message] The system Unata generated this result transmit paige reference range : 166 - 358 10*3/?L. The reference range was not used to interpret this result as normal/abnormal . MPV (test code = 10.9 fL 9.5-12.9 08018-4) RDW-CV (test code = 14.8 % 12.0-15.5 788-0) RDW-SD (test code = 48.9 fL 39.0-49.9 37125-5) NRBC x10^3 (test code = See_Comment [Au tomated message] 4720921144) The system Unata generated this result transmit paige reference range : 10*3/?L. The reference range was not used to interpret this result as normal/abnormal . NRBC/100 WBC (test code 0.0 See_Comment [Au tomated message] = 6846686220) The system Namely generated this result transmit paige reference range : 0.0 - 10.0 /100 WBC s. The reference r prasanth was not used to interpret this result as normal/abnormal . IPF % (test code = 4987239424) Lab Interpretation (test Abnormal code = 93852-3) [facility] [id number] 10:54:00 Test Item Value Reference Range Interpretation Comments ABO & RH (test code = 20) A POSITIVE IAT (test code = 1185) Negative [facility] and Screen - ONCE [id number] 10:54:00 Test Item Value Reference Range Interpretation Comments ABO & RH (test code = 20) A POSITIVE IAT (test code = 1185) Negative [facility] [id number] 00:00:00 Test Item Value Reference Range Interpretation Comments CULTURE, ROUTINE (test SPECIMEN NUMBER: code = 35666) [id number] CULTURE, [id number] 00:00:00 Test Item Value Reference Range Interpretation Comments CULTURE, ROUTINE (test SPECIMEN NUMBER: code = 20450) [id number] CULTURE, [id number] 00:00:00 Test Item Value Reference Range Interpretation Comments CULTURE, ROUTINE (test SPECIMEN NUMBER: code = 58640) [id number] CULTURE, [id number] 00:00:00 Test Item Value Reference Range Interpretation Comments CULTURE, ROUTINE (test SPECIMEN NUMBER: code = 75169) [id number] GC AND CHLAMYDIA AMPLIFIED, [id number] 00:00:00 Test Item Value Reference Range Interpretation Comments GONORRHEA, TMA (test code = 18145) NEGATIVE CHLAMYDIA, TMA (test code = 27154) NEGATIVE VAGINAL PATHOGENS DNA [id number] 00:00:00 Test Item Value Reference Range Interpretation Comments LORE SPECIES (test code = ) NEGATIVE G. VAGINALIS (test code = ) POSITIVE T. VAGINALIS (test code = ) NEGATIVE ACUTE HEPATITIS [id number] 00:00:00 Test Item Value Reference Range Interpretation Comments HEPATITIS A IgM (test code = NON-REACTIVE 09286) HEPATITIS B CORE IgM (test code NON-REACTIVE = 5644) HEPATITIS B SURF AG (test code = NON-REACTIVE 1680) HEPATITIS C ANTIBODY (test code NON-REACTIVE = 4619) INTERPRETATION HEPATITIS A: (NOTE) (test code = 2552) INTERPRETATION HEPATITIS B: (NOTE) (test code = 02012) INTERPRETATION HEPATITIS C: (NOTE) (test code = 88446) PAP TEST, THINPREP, [id number] 00:00:00 Test Item Value Reference Range Interpretation Comments SOURCE: (test code = Cervical/Endocervical 8001) SLIDES: (test code = 1 8011) LMP: (test code = 8021) 05/18/2021 SPECIMEN ADEQUACY: (test (NOTE) code = 32667) INTERPRETATION: (test NILM/NO EPITH. code = 71156) ABNORMALITY;SEE BELOW OTHER COMMENTS: (test (NOTE) code = 8081) ACCOUNT EXECUTIVE METALWORKING: (test Jeanna code = 8101) BRIANNE Suresh(ASCP) LOCATION: (test code = (NOTE) 86945) CPT: (test code = 8140) (NOTE) HPV HIGH RISK WITH GENOTYPE, [id number] 00:00:00 Test Item Value Reference Range Interpretation Comments HPV HIGH RISK INTERP (test code = NEGATIVE 22132) HPV 16 (test code = 76713) NEGATIVE HPV 18 (test code = 02021) NEGATIVE HPV, HR, OTHER GENOTYPES (test code NEGATIVE = 98234) VAGINAL PATHOGENS DNA [id number] 00:00:00 Test Item Value Reference Range Interpretation Comments LORE SPECIES (test code = ) NEGATIVE G. VAGINALIS (test code = 77421) POSITIVE T. VAGINALIS (test code = 67065) NEGATIVE GC AND CHLAMYDIA AMPLIFIED, [id number] 00:00:00 Test Item Value Reference Range Interpretation Comments GONORRHEA, TMA (test code = 68770) NEGATIVE CHLAMYDIA, TMA (test code = 92209) NEGATIVE PAP TEST, THINPREP, [id number] 00:00:00 Test Item Value Reference Range Interpretation Comments SOURCE: (test code = Cervical/Endocervical 8001) SLIDES: (test code = 1 8011) LMP: (test code = 8021) 05/18/2021 SPECIMEN ADEQUACY: (test (NOTE) code = 34104) INTERPRETATION: (test NILM/NO EPITH. code = 94025) ABNORMALITY;SEE BELOW OTHER COMMENTS: (test (NOTE) code = 8081) ACCOUNT EXECUTIVE METALWORKING: (test Jeanna code = 8101) BRIANNE Suresh(ASCP) LOCATION: (test code = (NOTE) 08446) CPT: (test code = 8140) (NOTE) ACUTE HEPATITIS [id number] 00:00:00 Test Item Value Reference Range Interpretation Comments HEPATITIS A IgM (test code = NON-REACTIVE 52760) HEPATITIS B CORE IgM (test code NON-REACTIVE = 4644) HEPATITIS B SURF AG (test code = NON-REACTIVE 3479) HEPATITIS C ANTIBODY (test code NON-REACTIVE = 4647) INTERPRETATION HEPATITIS A: (NOTE) (test code = 2552) INTERPRETATION HEPATITIS B: (NOTE) (test code = 20304) INTERPRETATION HEPATITIS C: (NOTE) (test code = 61698) HPV HIGH RISK WITH GENOTYPE, [id number] 00:00:00 Test Item Value Reference Range Interpretation Comments HPV HIGH RISK INTERP (test code = NEGATIVE 17585) HPV 16 (test code = 68134) NEGATIVE HPV 18 (test code = 55834) NEGATIVE HPV, HR, OTHER GENOTYPES (test code NEGATIVE = 51515) COMPREHENSIVE METABOLIC [id number] 00:00:00 Test Item Value Reference Range Interpretation Comments GLUCOSE (test code = 2217) 84 MG/DL BUN (test code = 2208) 18 MG/DL CREATININE (test code = 2214) 0.94 MG/DL eGFR AMER. (test code 83 ML/MIN/1.73 = 70536) eGFR NON- AMER. (test 72 ML/MIN/1.73 code = 85958) CALC BUN/CREAT (test code = 19 RATIO [...] (test code = 2219) 10 U/L LIPID [id number] 00:00:00 Test Item Value Reference Range Interpretation Comments CHOLESTEROL (test code = 2210) 157 MG/DL TRIGLYCERIDES (test code = 2232) 135 MG/DL HDL CHOLESTEROL (test code = 2220) 40 MG/DL CALC LDL CHOL (test code = 2237) 94 MG/DL RISK RATIO LDL/HDL (test code = 2.35 RATIO 2238) COMPREHENSIVE METABOLIC [id number] 00:00:00 Test Item Value Reference Range Interpretation Comments GLUCOSE (test code = 2217) 84 MG/DL BUN (test code = 2208) 18 MG/DL CREATININE (test code = 2214) 0.94 MG/DL eGFR AMER. (test code 83 ML/MIN/1.73 = 86653) eGFR NON- AMER. (test 72 ML/MIN/1.73 code = 97811) CALC BUN/CREAT (test code = 19 RATIO 2235) SODIUM (test code = 2231) 136 MEQ/L POTASSIUM (test code = 2228) 4.4 MEQ/L CHLORIDE (test code = 2215) 101 MEQ/L CARBON DIOXIDE (test code = 24 MEQ/L 220) CALCIUM (test code = 2209) 9.7 MG/DL PROTEIN, TOTAL (test code = 7.8 G/DL 2229) ALBUMIN (test code = 2201) 4.7 G/DL CALC GLOBULIN (test code = 3.1 G/DL 2240) CALC A/G RATIO (test code = 1.5 RATIO 2234) BILIRUBIN, TOTAL (test code = <0.2 MG/DL 2206) ALKALINE PHOSPHATASE (test 66 U/L code = 2204) AST (test code = 2218) 19 U/L ALT (test code = 2219) 10 U/L LIPID [id number] 00:00:00 Test Item Value Reference Range Interpretation Comments CHOLESTEROL (test code = 2210) 157 MG/DL TRIGLYCERIDES (test code = 2232) 135 MG/DL HDL CHOLESTEROL (test code = 2220) 40 MG/DL CALC LDL CHOL (test code = 2237) 94 MG/DL RISK RATIO LDL/HDL (test code = 2.35 RATIO 2238) COMPREHENSIVE METABOLIC [id number] 00:00:00 Test Item Value Reference Range Interpretation Comments GLUCOSE (test code = 2217) 93 MG/DL BUN (test code = 2208) 12 MG/DL CREATININE (test code = 2214) 0.81 MG/DL eGFR AMER. (test code 102 ML/MIN/1.73 = 16037) eGFR NON- AMER. (test 88 ML/MIN/1.73 code = 83013) CALC BUN/CREAT (test code = 15 RATIO [...] ALT (test code = 2219) 14 U/L [id number] 00:00:00 Test Item Value Reference Range Interpretation Comments AMYLASE (test code = 2205) 32 U/L [id number] 00:00:00 Test Item Value Reference Range Interpretation Comments LIPASE (test code = 2057) 37 U/L [id number] 00:00:00 Test Item Value Reference Range Interpretation Comments LIPASE (test code = 2057) 37 U/L COMPREHENSIVE METABOLIC [id number] 00:00:00 Test Item Value Reference Range Interpretation Comments GLUCOSE (test code = 2217) 93 MG/DL BUN (test code = 2208) 12 MG/DL CREATININE (test code = 2214) 0.81 MG/DL eGFR AMER. (test code 102 ML/MIN/1.73 = 84994) eGFR NON- AMER. (test 88 ML/MIN/1.73 code = 48987) CALC BUN/CREAT (test code = 15 RATIO [...] ALT (test code = 2219) 14 U/L [id number] 00:00:00 Test Item Value Reference Range Interpretation Comments AMYLASE (test code = 2205) 32 U/L [id number] 00:00:00 Test Item Value Reference Range Interpretation Comments LIPASE (test code = 2057) 37 U/L [id number] 00:00:00 Test Item Value Reference Range Interpretation Comments LIPASE (test code = 2057) 37 U/L CBC W/AUTO [id number] 00:00:00 Test Item Value Reference Range Interpretation [...] code = 1015) 327 K/UL CBC W/AUTO [id number] 00:00:00 Test Item Value Reference Range Interpretation [...] code = 1015) 327 K/UL CBC W/AUTO [id number] 00:00:00 Test Item Value Reference Range Interpretation [...] code = 1015) 327 K/UL CBC W/AUTO [id number] 00:00:00 Test Item Value Reference Range Interpretation [...]
[2023-01-30] MEDS ORDERED: ALBUTEROL INHALER 60 PUFF/8 GM IH PRN (18:35)
[2023-01-30] MEDS ORDERED: BENZONATATE 100 MG CAP PO PRN (18:35)
[2023-01-30] MEDS ORDERED: ONDANSETRON 4 MG (ODT) TAB PO PRN (18:35)
[2023-01-30] MEDS ORDERED: BROMPHENIRAMINE PO PRN (18:44)
[2023-01-30] MEDS ORDERED: DEXTROMETHORPHAN PO PRN (18:44)
[2023-01-30] MEDS ORDERED: PSEUDOEPHEDRINE PO PRN (18:44)
[2023-01-30] MEDS: TOPIRAMATE 25 MG TAB PO SCH (20:21)
[2023-01-30] MEDS: GABAPENTIN 400 MG CAP PO SCH ×2 (20:21)
[2023-01-30] MEDS: CYCLOBENZAPRINE 10 MG TAB PO SCH (20:21)
[2023-01-30] MEDS: OXYCODONE *CR* 10 MG TAB PO SCH (20:21)
[2023-01-30] MEDS: ARIPiprazole 5 MG TAB PO SCH (20:22)
[2023-01-31] MEDS: Oxycodone HCl/Acetaminophen 1 TAB TAB PO PRN ×4 (00:11→22:57)
[2023-01-31 01:09] LABS: Urine Bacteria <20 /HPF (<20); Urine Bilirubin NEGATIVE (Negative); Urine Blood Negative (Negative); Urine Clarity Extremely Turbid (Clear); Urine Color Light-Yellow (Yellow); Urine Glucose NEGATIVE (Negative); Urine Mucus Slight /HPF (None Seen); Urine Protein NEGATIVE (Negative); Urine RBC None Seen /HPF (None Seen); Urine Urobilinogen Normal (Normal); Urine pH 7.5 (5.0-7.0)
[2023-01-31 04:43] LABS: Absolute Lymphocytes (CBC) 1.7 K/uL (0.7-4.9); Lymphocytes % 18.7 % (15.3-44.8); MCV 89.9 fL (80-100); MPV 8.1 fL (7.6-11.3); RBC Red Blood Cell Count 2.78 M/uL (3.86-4.86)
[2023-01-31 04:45] LABS: Albumin 2.4 g/dL (3.4-5.0); Magnesium 2.4 mg/dL (1.6-2.4); Potassium 5.1 mEq/L (3.5-5.1); Prealbumin 11.4 mg/dL (20-40)
[2023-01-31] MEDS: FE SULF/FA/VIT B COMP & C TAB PO SCH (07:31)
[2023-01-31] MEDS: CRANBERRY FRUIT EXTRACT 200 MG CAP PO SCH ×2 (07:31→20:07)
[2023-01-31] MEDS: APIXABAN 2.5 MG TABLET PO SCH ×2 (07:32→20:09)
[2023-01-31] MEDS: FERROUS SULFATE 325 MG TAB PO SCH (07:32)
[2023-01-31] MEDS: GABAPENTIN 400 MG CAP PO SCH ×3 (07:32→20:07)
[2023-01-31] MEDS: OXYCODONE *CR* 10 MG TAB PO SCH ×2 (07:35→20:08)
[2023-01-31] MEDS: CYCLOBENZAPRINE 10 MG TAB PO SCH ×3 (07:36→20:08)
[2023-01-31] MEDS ORDERED: [UNRECOGNIZED DRUG - OTHER] PO ONE (08:00)
[2023-01-31] MEDS ORDERED: SERTRALINE HCL 100 MG TAB PO SCH (08:00)
[2023-01-31] MEDS: POLYETHYL GLY 3350 17 GM/DOSE PO SCH (14:17)
[2023-01-31] MEDS: MAGNESIUM HYDROXIDE 8% 30 ML PO SCH (14:17)
[2023-01-31] MEDS: SERTRALINE HCL 50 MG TAB PO SCH (14:17)
[2023-01-31] MEDS: MAGNESIUM OXIDE 400 MG TAB PO SCH (20:08)
[2023-01-31] MEDS: ARIPiprazole 5 MG TAB PO SCH (20:08)
[2023-01-31] MEDS: TOPIRAMATE 25 MG TAB PO SCH (20:08)
--- NOTE | 2023-02-01 04:09 | HP ---
Date of Admission: 01/30/2023 Time Of Service: 12 noon. Chief Complaint: "I am weak. I had some back pain, but I'm getting stronger." History Of Present Illness: Ms. Victor is a 52-year-old right-handed patient with a history of degenerative scoliosis, who had increasing difficulty ambulating and performing ordinary activiti es, including english drawer. Pain also prevented her from sleeping and enjoying the ordinary acti vities that she usually would do. She was unable to stand for more than a few minutes due to severe pain. As a result, she had scheduled surgery at [facility] on 01/17 and has had PSIF, T9 to the pelvis and TLIF from L4-5 and L5-S1. Also, Ricardo osteotomes from T11 to L3. Following surgery, she did begin to participate in physical therapy and was able to ambulate about 100 feet with contact guard assista nce. However, she began to have significant weakness in the lower extremities with shooting pain fro m her right lower extremity and also the left lower extremity, causing her to fall and not to be able to get out of bed without maximum assistance. She did have imaging of her surgical site, showed no significant fractures or changes. She, during this postop period, also had episodes of tachycardia a nd severe anemia with hemoglobin down to 7.6. She did require ICU monitoring for the possibility of arrhythmias and careful monitoring for worsening anemia. She also had swelling in the lower extremit ies, resulting in the need for ultrasounds to rule out deep vein thrombosis. She had a drain that wa s in place that fell out and was not replaced, but her incision at that area actually did begin to he al very well. She was initially transferred to the inpatient rehabilitation unit on but had sev ere pain throughout the night, requiring IV medications and had to be sent to the emergency room at [facility]. This was just a few hours after she was admitted to the rehab floor. Once the pain was m anaged, it was discussed with the patient that IV medications would not be available on the floor for rehab unit as there is no monitoring of the telemetry and cardiac monitoring, she was sent back to [facility] to manage pain and that pain has been better managed, and she is now on an oral regimen of medica tions, which has helped the pain. She currently requires moderate assistance for toileting, for ramo ruiz, coordination, still requires verbal cues to use a rolling walker properly, use the grab bars. S he is unable to go up and down stairs because of pain and she does have at least 3 steps to negotiate at home. She has had some elevated heart rate and in addition to the weakness and incoordination, s he has had numbness in the anterior thigh and the circumferential for leg and feet. As a result of h er multiple comorbid conditions and the need for aggressive rehabilitation, she is felt to be a more appropriate candidate for acute inpatient rehabilitation rather than a nursing home facility. Past Medical History: Chronic pain, depression, and mood disorder. Surgical History: As noted above, status post PSIF from T9 to the pelvis and TLIF from L4-L5 and L5- S1 and the Ricardo osteotomies from T11 to L3, all done on 01/17/2023. X-ray Imaging: CT scan of the lumbar spine without contrast on 01/23 shows postoperative scoliosis r epair and posterior fusion from T8 to S1. No complications identified. Allergies: NO KNOWN DRUG ALLERGIES. Current Medications: Ventolin inhaler 2 puffs every 4 hours; Eliquis 2.5 mg twice daily; Abilify 15 mg at bedtime; Tessalon Perles 100 mg three times daily; Flexeril 10 mg three times daily; ferrous mittal lfate 325 mg daily; gabapentin 1200 mg at bedtime and 400 mg in the morning; milk of magnesia 30 mL d aily; magnesium oxide 400 mg at bedtime; Hemocyte-Plus one tablet with breakfast; oxycodone 10 mg josé miguel ry 12 hours; Percocet 5 mg every 6 hours; topiramate 50 mg at bedtime. Family History: Noncontributory. Social History: No alcohol, tobacco, or IV drug use. Laboratory Studies: White blood cell count 9.4, hemoglobin 8.2, platelets are 820. Sodium 136, pota ssium 5.1, chloride 106, carbon dioxide 29, BUN 9, creatinine 0.77, prealbumin 11.4, albumin 2.4, glu cose 108, calcium 8.8, magnesium 2.4. Urinalysis is extremely turbid; pH 7.5; esterase 250; crystals +1; white blood cell count, none seen; bacteria less than 20. Review of Systems: Ms. Victor is resting comfortably. She does report some pain which is improved with medications as no paige above. She denies any recent fevers. There are no myalgias or arthralgias. No rash. No signif icant headaches. No gastrointestinal issues, although she has had no bowel movements in 2 days and s he normally goes once a day, and she has had MiraLAX and milk of magnesia. Otherwise, no pulmonary i ssues and no other positives on a 10-point systems review. Physical Examination: Vital Signs: Blood pressure 105/64, pulse of 87 to 97, respiratory rate 16 to 20, temperature is 97. 1, oxygen saturation 92%. Weight 158 pounds. Height 5 feet. Body mass index 31. General: Ms. Victor is resting comfortably with speech pathologist at the bedside. HEENT: She is normocephalic, atraumatic. Sclerae are anicteric. Oropharynx is pink and moist. Neck: Supple. Chest: Clear. Heart: Regular. Extremities: Show no significant edema, clubbing, or cyanosis. Neurological: She is alert, oriented to situation, place, person. Cranial nerves: No focal deficit s. On motor, mild diffuse weakness in the lower more than upper extremities in all four. Coordinati on intact of lower extremities. Her reflexes are symmetric. No significant sensory loss in the uppe r and lower extremities. In terms of her gait, she was able to ambulate with a rolling walker 200 fe et twice with contact guard assistance, using a rolling walker. Current Level Of Functioning: Currently, independent with eating. Setup assistance required for ora l hygiene. Moderate assistance for toileting and showering, upper body dressing, lower body dressing , independent. Moderate assistance for toileting. She did ambulate about 150 feet and required cont act guard assistance. Stairs, about 3 with contact guard assistance. Also, she is being evaluated b y Speech and will determine the level of need for cognitive functioning as she does have some delayed thought processing and cognitive issues, which may be partly related to pain medications. Rehabilatation And Medical Assessment And Plan: Ms. Victor is admitted to the rehabilitation unit wit h an impairment category of 05 spinal cord dysfunction, nontraumatic. Her impairment group code is 0 4.130, other nontraumatic spinal cord dysfunction. Her etiologic diagnosis is degenerative scoliosis . Active Comorbids: Chronic back pain, decreased mobility and physical functioning, edema in the extre mities, multiple falls in addition to hypocalcemia, hypokalemia, obesity, tachycardia, pain, and oste oarthritis. Plan: 1.She will have physical, occupational, and speech therapy for 3-1/2 hours, 5 of 7 days. 2.She will have gabapentin 800 mg in the morning and 1200 mg at night for neuropathic pain. 3.Milk of magnesia 30 mL daily and as-needed Senokot-S for constipation. Currently, OxyContin every 10 mg every 12 hours for severe pain, Percocet 5/325 every 6 hours for also sgineqwt-ke-modkjl pain. Continue with magnesium oxide 400 mg twice daily, ferrous sulfate for anemia that is 325 mg daily, Flexeril 10 mg twice daily for muscle spasms, Abilify 15 mg at night for depression, Eliquis 2.5 mg t wice daily for DVT prophylaxis, Tessalon Perles 100 mg three times daily for cough, Ventolin inhaler 2 puffs every 4 hours for any wheezing. Impact Of Comorbids: Ms. Victor did require significant pain medications just prior to coming into re habilitation. Medications include IV morphine, which has been discontinued. She is now on narcotic medications and the neuro modulator, gabapentin. Attempts will be made to cut back on the need for n arcotic medications as she does her therapy. She also has significant history of depression and anxi ety, and she is on Abilify. Medication adjustment will be done appropriately and if need be, Psychia try will be consulted. Rehab Specific Plan: Ms. Victor will have 3-1/2 hours, 5 of 7 days of physical, occupational, and spe ech therapy to improve her upper and lower body dressing, toileting, transferring, showering. Did pe rform household activities to transfer and ambulate 250 feet with modified independence, up and down 10 steps with modified independence in addition to perform all cognitive functioning with modified in dependence to independence. She has a good understanding of the process of admission to the inpatient rehabilitation unit and aristeo l benefit from the interdisciplinary approach of the physical, occupational, and speech therapy. If need be, additional services from the Pulmonary, Cardiac, Wound Care will be involved to help her to do her best. Given her complex medical condition and the risk of further complications, rehabilitati on cannot be safely or effectively performed at the lower level of care such as nursing home. Barriers To Discharge: Currently, the need or prior need for significant pain medications may prove to be a barrier, but so far, she is actually doing better. In addition, anxiety, depression, and psy chiatric diagnosis may prove to be a barrier, but she is doing well from that standpoint. Estimated Length Of Stay: About 9 to 10 days. Disposition: Home with family. Prognosis: Good. Rehabilitation Goals: 1.Become independent with upper and lower body dressing and putting on and taking off use. 2.Independent with transfers from bed to toilet to chair to wheelchair to shower. 3.Performing a shower and toileting hygiene with independence. 4.Ambulating 250 feet with modified independence to independence. 5.Without an assistive device if possible. 6.Up and down 10 steps without an assistive device if possible with modified independence. 7.Perform cognitive functioning with modified independence to independence. I acknowledge I have personally performed a full physical examination on Ms. Victor, no later than 24 hours after admission to the inpatient rehabilitation facility and determined that she is able to per form the above course of treatment at an intensive level for a reasonable period of time. A detailed individualized plan of care for her will be completed by hospital day #4 based on the preadmission s creen, history and physical, and therapy evaluations. All of the goals and the patient's conditions have been discussed with her, and she is in agreement w ith the plans as outlined. ALEX Voice ID: [id number]
[2023-02-01] MEDS: Oxycodone HCl/Acetaminophen 1 TAB TAB PO PRN ×3 (05:30→17:15)
[2023-02-01] MEDS: GABAPENTIN 400 MG CAP PO SCH ×3 (07:28→20:23)
[2023-02-01] MEDS: CYCLOBENZAPRINE 10 MG TAB PO SCH ×3 (07:30→20:21)
[2023-02-01] MEDS: CRANBERRY FRUIT EXTRACT 200 MG CAP PO SCH ×2 (07:44→20:22)
[2023-02-01] MEDS: MAGNESIUM HYDROXIDE 8% 30 ML PO SCH (07:44)
[2023-02-01] MEDS: SERTRALINE HCL 50 MG TAB PO SCH (07:44)
[2023-02-01] MEDS: POLYETHYL GLY 3350 17 GM/DOSE PO SCH (07:44)
[2023-02-01] MEDS: FERROUS SULFATE 325 MG TAB PO SCH (07:44)
[2023-02-01] MEDS: FE SULF/FA/VIT B COMP & C TAB PO SCH (07:44)
[2023-02-01] MEDS: APIXABAN 2.5 MG TABLET PO SCH ×2 (07:45→20:22)
[2023-02-01] MEDS: OXYCODONE *CR* 10 MG TAB PO SCH ×2 (07:45→20:22)
[2023-02-01] MEDS ORDERED: MAGNESIUM HYDROXIDE 8% 30 ML PO SCH (08:00)
[2023-02-01] MEDS: DULOXETINE 20 MG CAP PO SCH ×2 (20:00→20:22)
[2023-02-01] MEDS: TOPIRAMATE 25 MG TAB PO SCH (20:22)
[2023-02-01] MEDS: MAGNESIUM OXIDE 400 MG TAB PO SCH (20:22)
[2023-02-01] MEDS: ARIPiprazole 5 MG TAB PO SCH (20:23)
[2023-02-02] MEDS: Oxycodone HCl/Acetaminophen 1 TAB TAB PO PRN ×2 (01:37→12:21)
[2023-02-02] MEDS: DULOXETINE 20 MG CAP PO SCH ×3 (08:00→19:20)
--- NOTE | 2023-02-02 08:16 | PN ---
Subjective: Ms. Victor is doing well. She denies significant pain in the back where she had surgery. There is some stiffness in the right lower extremity and some pain shooting down; however, otherwis e she has no new complaints. Review of Systems: No fevers, chills. There are mild myalgias, arthralgias again on the right side. No rash. No psych iatric complaints. No active genitourinary or gastrointestinal issues. Physical Examination: Vital Signs: Blood pressure 109/59, pulse 89, respiratory rate 16 to 20, temperature 97.2, oxygen sa turation 94%. Pain ranges from 0 to 7. Weight 158 pounds. Height 5 feet, BMI 31.0. General: Ms. Victor is resting comfortably in chair, in between therapy sessions. HEENT: She is normocephalic, atraumatic. Sclerae anicteric. Oropharynx pink, moist. Neck: Supple. Chest: Clear. Extremities: No significant edema in the lower extremities. She has good hemostasis in the lower ba ck at surgical site. Trace edema in lower extremities. Laboratory Studies: White blood cell count 9.1, hemoglobin 8.2, platelets 820. Electrolytes essenti ally unremarkable. Prealbumin 11.4, glucose 108. X-ray/imaging: None. Medications: Ventolin inhaler 2 puffs every 4 hours, Eliquis 2.5 mg twice daily, Abilify 15 mg at be dtime, Tessalon Perles 100 mg 3 times daily for cough, Flexeril 10 mg 3 times daily, Cymbalta 20 mg t wice daily, ferrous sulfate 325 mg daily, gabapentin 800 mg at bedtime, 400 mg twice daily. It shoul d be noted that she did have adjustment to her medications with duloxetine added today that is 20 mg twice daily duloxetine or Cymbalta; milk of magnesia 30 mL daily; OxyContin 10 mg every 12 hours as n eeded; Zofran 4 mg every 8 hours as needed; Hemocyte Plus 1 tablet daily; magnesium oxide 400 mg at b edtime; Percocet 5/325 1 tablet every 6 hours; Topamax 50 mg at bedtime. Current Functional Status: Today, she did ambulate 200 feet once, another 250 feet once, another 350 feet with a rolling walker. Emphasis placed on upright posture with contact guard. She ascended an d descended 15 steps with bilateral handrails with contact guard assistance. With speech therapy tod ay, she had some difficulty with sustained attention during time tasks, but improved when time constr aints were removed. She named 15 items per concrete category with minimum assistance. She demonstra paige working memory of 4 items including that the reasoning tasks with 90% accuracy and minimum assist ance. She did complete bathing and upper and lower body dressing independently, standby assistance f or toileting and lower body dressing. Progress Towards Rehabilitation Goals: Ms. Victor is making excellent progress towards her goals of b ecoming independent with upper and lower body dressing, transferring, toileting, showering, and ambul ating 250 feet with modified independence, up and down 15 steps with modified independence and perfor isi her cognitive functioning with modified independence. Assessment: Ms. Victor is a 52-year-old patient in the rehabilitation unit with degenerative scoliosi s, status post multiple surgical corrections. Her comorbid conditions do include hypocalcemia, hypok alemia, obesity, tachycardia, osteoarthritis, chronic pain syndrome. Plan: 1.Continue physical, occupational, and speech therapy for 3.5 hours, 5 of 7 days. 2.Continue gabapentin as noted along with the addition of duloxetine. 3.Continue Senokot for constipation along with milk of magnesia. 4.Continue Percocet and OxyContin. 5.Magnesium oxide 400 mg twice daily for muscle spasms. 6.Ferrous sulfate and Hemocyte Plus for anemia. 7.Abilify for depression. 8.Eliquis 2.5 mg twice daily for DVT prophylaxis. 9.Tessalon Perles for cough. 10.Ventolin inhaler for any wheezing. Comorbidities That Continue To Impact Her Rehabilitation: Her pain in the back has improved with the current medication regimen and she does not require any IV medicines that has been somewhat of a hare iting factor to her admission. She otherwise has some muscle spasms and is on magnesium along with m uscle relaxants and gabapentin was augmented with Cymbalta. LB/GEOVANNAL Voice ID: [id number] Report ID: [id number]
[2023-02-02] MEDS: FE SULF/FA/VIT B COMP & C TAB PO SCH (08:35)
[2023-02-02] MEDS: CRANBERRY FRUIT EXTRACT 200 MG CAP PO SCH ×2 (08:35→19:12)
[2023-02-02] MEDS: OXYCODONE *CR* 10 MG TAB PO SCH ×2 (08:35→19:14)
[2023-02-02] MEDS: FERROUS SULFATE 325 MG TAB PO SCH (08:35)
[2023-02-02] MEDS: GABAPENTIN 400 MG CAP PO SCH ×3 (08:36→19:13)
[2023-02-02] MEDS: APIXABAN 2.5 MG TABLET PO SCH ×2 (08:36→19:13)
[2023-02-02] MEDS: SERTRALINE HCL 50 MG TAB PO SCH (08:36)
[2023-02-02] MEDS: POLYETHYL GLY 3350 17 GM/DOSE PO SCH (08:37)
[2023-02-02] MEDS: MAGNESIUM HYDROXIDE 8% 30 ML PO SCH (08:37)
[2023-02-02] MEDS: CYCLOBENZAPRINE 10 MG TAB PO SCH ×3 (09:57→19:13)
[2023-02-02] MEDS: TOPIRAMATE 25 MG TAB PO SCH (19:12)
[2023-02-02] MEDS: ARIPiprazole 5 MG TAB PO SCH ×2 (19:14→19:20)
[2023-02-02] MEDS: MAGNESIUM OXIDE 400 MG TAB PO SCH (19:24)
--- NOTE | 2023-02-02 22:15 | PN ---
Date of Progress Note: 02/02/2023 Time Of Service: 1:00 p.m. Subjective: Ms. Victor is doing well. She denies any significant pain in the back where she had surg isabelle and she is happy so far with her therapy. Her mood is good. She is feeling very good about her stay in the rehabilitation unit. Review of Systems: No significant fevers, chills, nausea, vomiting, myalgias, arthralgias except some pain in the lower back at her surgical site. No rash. No psychiatric complaints. No genitourinary or gastrointestina l complaints. Physical Examination: Vital Signs: Blood pressure 109/61, pulse 88, respiratory rate 16, temperature 97.8, oxygen saturati on 98%. General: Ms. Victor is resting in bed. She is lying on her left side. She is in no acute distress. HEENT: She is normocephalic, atraumatic. Sclerae anicteric. Oropharynx is moist. Neck: Supple. Chest: Clear. Heart: Regular. Extremities: Show no significant edema or cyanosis. She has good hemostasis in her lower back surgi xiomy site. Laboratory Studies: Laboratory studies have been reviewed and remained unchanged since . Medications: Medications have been reviewed and remained unchanged. X-ray/imaging: She has no new x-rays or imaging. Current Functional Status: Today, she did exuedq-ug-gsw transfers independently. She performed mult iple qly-yr-[id number] transfers with standby assistance. She ambulated 150 feet twice, 600 feet twice, a nd 75 feet twice with standby assistance using a rolling walker. She ascended and descended 15 steps with standby assistance using bilateral handrails. With speech therapy, she completed a divided att ention task with 100% accuracy and minimum assistance. She recalled 4/4 unrelated pictures after 5 m inutes and 10 minute increments. Organizational thinking skills were used in order 4 words with 80% accuracy and minimum assistance. She did lower body dressing with a blindmaker independently and donned and doffed her shoes independently. She ambulated another 250 feet with a rolling walker to pick up driver 10 objects on the floor with a blindmaker to prevent from breaking the spinal precautions and she did w ithout rest breaks. Progress Towards Rehabilitation Goals: Ms. Victor is making excellent progress towards her goals of b ecoming independent with upper and lower body dressing, transferring, toileting, showering, and ambul ating 600 feet with modified independence and up and down 10 steps with modified independence. Also, her cognitive functioning is improving towards modified independence. Assessment: Ms. Victor is a 52-year-old patient admitted to the rehabilitation unit with degenerative scoliosis, status post surgical correction. She has hypocalcemia, hypokalemia, obesity, tachycardia , osteoarthritis, and chronic pain syndrome. Plan: 1.Continue with physical, occupational, and speech therapy for 3.5 hours, 5 of 7 days. 2.Continue with her multiple medications including gabapentin and duloxetine for neuropathic pain, S enokot and milk of magnesia for constipation, Percocet and OxyContin along with the neuromodulators f or pain, magnesium oxide for muscle spasms, ferrous sulfate and Hemocyte Plus for anemia, Abilify for depression, Eliquis for DVT prophylaxis, Tessalon Perles for cough and continue with her inhalers fo r wheezing. Comorbids That Continue To Impact Her Rehabilitation Process: At this point, her comorbidities have been well managed. She does not require IV medications for pain and muscle spasms are well controlled and her mood is stable. LB/MODL Voice ID: [id number] Report ID: [id number]
[2023-02-03] MEDS: Oxycodone HCl/Acetaminophen 1 TAB TAB PO PRN ×2 (03:12→11:06)
[2023-02-03 04:23] LABS: Absolute Lymphocytes (CBC) 1.8 K/uL (0.7-4.9); Lymphocytes % 25.6 % (15.3-44.8); MCV 88.7 fL (80-100); RBC Red Blood Cell Count 2.82 M/uL (3.86-4.86)
[2023-02-03 04:35] LABS: Albumin 2.4 g/dL (3.4-5.0); Magnesium 2.4 mg/dL (1.6-2.4); Prealbumin 11.7 mg/dL (20-40)
[2023-02-03] MEDS: GABAPENTIN 400 MG CAP PO SCH ×4 (06:52→20:03)
[2023-02-03] MEDS: DULOXETINE 20 MG CAP PO SCH ×2 (07:13→20:00)
[2023-02-03] MEDS: POLYETHYL GLY 3350 17 GM/DOSE PO SCH ×2 (08:00→09:08)
[2023-02-03] MEDS: MAGNESIUM HYDROXIDE 8% 30 ML PO SCH ×3 (08:00→20:08)
[2023-02-03] MEDS: APIXABAN 2.5 MG TABLET PO SCH ×2 (09:00→20:03)
[2023-02-03] MEDS: FERROUS SULFATE 325 MG TAB PO SCH (09:07)
[2023-02-03] MEDS: CRANBERRY FRUIT EXTRACT 200 MG CAP PO SCH ×2 (09:07→20:01)
[2023-02-03] MEDS: FE SULF/FA/VIT B COMP & C TAB PO SCH (09:07)
[2023-02-03] MEDS: OXYCODONE *CR* 10 MG TAB PO SCH ×2 (09:07→20:02)
[2023-02-03] MEDS: SERTRALINE HCL 50 MG TAB PO SCH (09:08)
[2023-02-03] MEDS: CYCLOBENZAPRINE 10 MG TAB PO SCH ×3 (10:37→20:02)
[2023-02-03] MEDS: TOPIRAMATE 25 MG TAB PO SCH (20:01)
[2023-02-03] MEDS: ARIPiprazole 5 MG TAB PO SCH (20:03)
[2023-02-03] MEDS: MAGNESIUM OXIDE 400 MG TAB PO SCH (20:10)
[2023-02-04] MEDS: Oxycodone HCl/Acetaminophen 1 TAB TAB PO PRN ×3 (00:28→23:41)
[2023-02-04] MEDS: GABAPENTIN 400 MG CAP PO SCH ×3 (06:34→21:04)
[2023-02-04] MEDS: POLYETHYL GLY 3350 17 GM/DOSE PO SCH (08:03)
[2023-02-04] MEDS: FE SULF/FA/VIT B COMP & C TAB PO SCH (08:03)
[2023-02-04] MEDS: MAGNESIUM HYDROXIDE 8% 30 ML PO SCH (08:03)
[2023-02-04] MEDS: APIXABAN 2.5 MG TABLET PO SCH ×2 (08:04→20:01)
[2023-02-04] MEDS: CRANBERRY FRUIT EXTRACT 200 MG CAP PO SCH ×2 (08:04→19:59)
[2023-02-04] MEDS: OXYCODONE *CR* 10 MG TAB PO SCH ×2 (08:04→20:00)
[2023-02-04] MEDS: DULOXETINE 20 MG CAP PO SCH ×2 (08:04→20:01)
[2023-02-04] MEDS: FERROUS SULFATE 325 MG TAB PO SCH (08:04)
[2023-02-04] MEDS: SERTRALINE HCL 50 MG TAB PO SCH (08:05)
[2023-02-04] MEDS: CYCLOBENZAPRINE 10 MG TAB PO SCH ×3 (09:58→21:02)
--- NOTE | 2023-02-04 13:22 | P.RH.PN ---
Estimated Length of Stay: 10 Expected Discharge Date: 02/05/23 Discharge Disposition Plan: Home Family Support: Yes Fdc Goal: Mobility, Transfers, Self Care Vital Signs: Last Vital Signs Temp 97.0 F 02/04/23 06:50 Pulse 87 02/04/23 06:50 Resp 14 02/04/23 08:04 BP 89/59 L 02/04/23 06:50 Pulse Ox 95 02/04/23 08:04 Laboratory: Laboratory Last Values WBC 7.10 thou/uL (4.3-10.9) 02/03/23 03:48 RBC 2.82 M/uL (3.86-4.86) L 02/03/23 03:48 Hgb 8.2 g/dL (12.0-15.0) L 02/03/23 03:48 Hct 25.0 % (36.0-45.0) L 02/03/23 03:48 MCV 88.7 fL (80-100) 02/03/23 03:48 MCH 29.1 pg (27.0-35.0) 02/03/23 03:48 MCHC 32.9 g/dL (32.0-36.0) 02/03/23 03:48 RDW 15.4 % (12.1-15.2) H 02/03/23 03:48 Plt Count 891 thou/uL (152-406) H 02/03/23 03:48 MPV 8.0 fL (7.6-11.3) 02/03/23 03:48 Neutrophils % 57.7 % (41.7-73.7) 02/03/23 03:48 Lymphocytes % 25.6 % (15.3-44.8) 02/03/23 03:48 Monocytes % 13.2 % (3.3-12.3) H 02/03/23 03:48 Eosinophils % 2.3 % (0-4.4) 02/03/23 03:48 Basophils % 1.2 % (0-1.3) 02/03/23 03:48 Absolute Neutrophils 4.1 K/uL (1.8-8.0) 02/03/23 03:48 Absolute Lymphocytes 1.8 K/uL (0.7-4.9) 02/03/23 03:48 Absolute Monocytes 0.9 K/uL (0.1-1.3) 02/03/23 03:48 Absolute Eosinophils 0.2 K/uL (0-0.5) 02/03/23 03:48 Absolute Basophils 0.1 K/uL (0-0.5) 02/03/23 03:48 Sodium 136 mEq/L (136-145) 02/03/23 03:48 Potassium 4.0 mEq/L (3.5-5.1) 02/03/23 03:48 Chloride 104 mEq/L (98-107) 02/03/23 03:48 Carbon Dioxide 28 mEq/L (21-32) 02/03/23 03:48 Anion Gap 8.0 mEq/L (5.0-15.0) 02/03/23 03:48 BUN 11 mg/dL (7-18) 02/03/23 03:48 Creatinine 0.80 mg/dL (0.55-1.02) 02/03/23 03:48 Est GFR (CKD-EPI) 89 ml/min (=/>90) L 02/03/23 03:48 Glucose 97 mg/dL (74-106) 02/03/23 03:48 Calcium 8.8 mg/dL (8.5-10.1) 02/03/23 03:48 Magnesium 2.4 mg/dL (1.6-2.4) 02/03/23 03:48 Albumin 2.4 g/dL (3.4-5.0) L 02/03/23 03:48 Prealbumin 11.7 mg/dL (20-40) L 02/03/23 03:48 Urine Color Light-yellow (Yellow) 01/31/23 00:05 Urine Clarity Extremely turbid (Clear) H 01/31/23 00:05 Urine pH 7.5 (5.0-7.0) H 01/31/23 00:05 Ur Specific [place] 1.010 (1.005-1.030) 01/31/23 00:05 Glucose (UA)(Auto) Negative (Negative) 01/31/23 00:05 Urine Ketones Negative (Negative) 01/31/23 00:05 Urine Blood Negative (Negative) 01/31/23 00:05 Urine Nitrite Negative (Negative) 01/31/23 00:05 Urine Bilirubin Negative (Negative) 01/31/23 00:05 Urine Urobilinogen Normal (Normal) 01/31/23 00:05 Ur Leukocyte Esterase 250 Sue/uL (Negative) H 01/31/23 00:05 Urine RBC None seen /HPF (None Seen) 01/31/23 00:05 Urine WBC None seen /HPF (<5) 01/31/23 00:05 Ur Squamous Epith Cells 10-20 /HPF (None Seen) 01/31/23 00:05 U Non-Squamous Epi Cells <5 /HPF (None Seen) 01/31/23 00:05 Amorphous Crystals 1+ /HPF (None Seen) H 01/31/23 00:05 Urine Bacteria <20 /HPF (<20) 01/31/23 00:05 Urine Mucus Slight /HPF (None Seen) 01/31/23 00:05 Urine Culture Reflexed Not needed 01/31/23 00:05 Urine Total Protein Negative (Negative) 01/31/23 00:05 Weight: 158 lb 14.4 oz Wound Present: No Closed Surgical Incision Present: Yes Negative Pressure Wound Therapy Present: No Physician Update: Labs were reviewed and are stable. She is doing well with all therapy. She has spinal precautions. She is ready for discharge home in the AM and will do best with outpatient therapy. Scored 14 on the BIMS, 21 on the SLUMS initially and now 28/30 just before discharge. Independent with walker and cane. Met all ADLs goals. She had every other staple was removed yesterday. Summary: Patient's care plan and long term care administrator goals have been reviewed and revised as necessary. Please see the Rehabilitation Signature page for all necessary signatures.
[2023-02-04] MEDS: ARIPiprazole 5 MG TAB PO SCH (20:01)
[2023-02-04] MEDS: MAGNESIUM OXIDE 400 MG TAB PO SCH (21:03)
[2023-02-04] MEDS: TOPIRAMATE 25 MG TAB PO SCH (21:04)
[2023-02-05 06:39] VITALS: BP 94/62; TEMP 97.9
[2023-02-05] MEDS: OXYCODONE *CR* 10 MG TAB PO SCH (07:07)
[2023-02-05] MEDS: GABAPENTIN 400 MG CAP PO SCH (07:32)
[2023-02-05] MEDS: APIXABAN 2.5 MG TABLET PO SCH (07:33)
[2023-02-05] MEDS: CRANBERRY FRUIT EXTRACT 200 MG CAP PO SCH (07:34)
[2023-02-05] MEDS: DULOXETINE 20 MG CAP PO SCH (07:34)
[2023-02-05] MEDS: POLYETHYL GLY 3350 17 GM/DOSE PO SCH ×2 (08:00→08:22)
[2023-02-05] MEDS: MAGNESIUM HYDROXIDE 8% 30 ML PO SCH ×2 (08:00→08:22)
[2023-02-05] MEDS: SERTRALINE HCL 50 MG TAB PO SCH (08:22)
[2023-02-05] MEDS: FERROUS SULFATE 325 MG TAB PO SCH (08:22)
[2023-02-05] MEDS: FE SULF/FA/VIT B COMP & C TAB PO SCH (08:23)
[2023-02-05] MEDS: CYCLOBENZAPRINE 10 MG TAB PO SCH ×2 (08:24→09:41)
== END 2023-02-05 10:30 | disposition home or self-care (01) | DRG 561 ==
LOC: 5TH 18:15
PROVIDERS: ADMIT Psychiatry & Neurology Neurology with Special Qualifications in Child Neurology; ATTEND Psychiatry & Neurology Neurology with Special Qualifications in Child Neurology
DX: Z47.82 Encounter for orthopedic aftercare following scoliosis surgery (principal); E83.51 Hypocalcemia; E87.6 Hypokalemia; E66.9 Obesity, unspecified; R00.0 Tachycardia, unspecified; M19.90 Unspecified osteoarthritis, unspecified site; F41.8 Other specified anxiety disorders; G89.4 Chronic pain syndrome; Z91.81 History of falling; Z68.32 Body mass index [BMI] 32.0-32.9, adult
CPT/HCPCS: 36415; 80048; 81001; 82040; 83735; 84134; 85025; 87086; 87088; 92523; 94010; 97110; 97112; 97116; 97129; 97163; 97165; 97530; 97535

== ENCOUNTER 2023-02-14 01:43 | Emergency (ER) | payer OTHER ==
--- OUTSIDE RECORDS SUMMARY | 2023-02-14 01:57 | XMS REPORT | Continuity of Care Document ---
:1970 Author Organization [facility] t Address [address] [place] [address] Care Team Providers Name Role Phone Star Kellogg Primary Care Physician [phone] SUZETTE BURDICK Attending Clinician Unavailable JOSH WALTON Attending Clinician Unavailable Doctor Unassigned, [place] Attending Clinician Unavailable Felipe Herzog MD Attending Clinician Suzette Burdick DNP Attending Clinician Estephania Jones RN Attending Clinician Unavailable FELIPE HERZOG Attending Clinician Unavailable Yg White MD Attending Clinician WEN CAPELLAN Attending Clinician Unavailable NADEEM SALMERON Attending Clinician [...] Clinician LENA QUINONES Attending Clinician Unavailable Shalom RT, Bettie C Attending Clinician Unavailable Testing, [facility] Pulmonary Function Attending Clinician Unavailmary linda Fellow, Pulmonary Attending Clinician Unavailable Sun Mack MD Attending Clinician [phone] SUN MACK Attending Clinician Unavailable PAGE CAPELLAN Attending Clinician Unavailable Junior Thayer Attending Clinician JUNIOR LARKIN Attending Clinician Unavailable [facility] Attending Clinician Unavailable FELIPE HERZOG Admitting Clinician Unavailable Felipe Herzog MD Admitting Clinician [facility] Admitting Clinician Unavailable Payers Payer Name Policy Type Policy Number Effective Date Expiration Date Fátima CARNEY DISABILITY [id number] 2014 DETERMINATION SVCS 00:00:00 Problems Condition Condition [...] I 3-17 ity of disorder disorder 00:00: [place] with with 00 Medical depression depression Br [...] 2-13 it y of single single 00:00: [place] episode, episode, 00 Medica l in partial in partial Br anch remission remission No known No known Disease Unive rs active active ity of problems problems [place] [facility] Allergies, Adverse Reactions, Alerts Allergy [...] History SDOH Social Unive rsity of Connections Sabianism [place] [facility] History SDOH Social Unive rsity of Connections [place] [facility] Membership [facility] History SDOH Social Unive rsity of Connections [place] [facility] Meetings [facility] History of tobacco Cigarette Smoker University of use [place] [facility] History SDOH 2023-01-18 2023-01-18 1 University o f Alcohol Frequency 00:00:00 00:00:00 [place] [facility] ed[facility] History SDOH Social 2023-01-18 2023-01-18 3 Unive rsity of Connections Phone 00:00:00 00:00:00 [place] [facility] ed[facility] History SDNV Social 2023-01-18 2023-01-18 3 Unive rsity of Connections Living 00:00:00 00:00:00 [place] [facility] History SDNV 2023-01-18 2023-01-18 3 University o f Physical Activity 00:00:00 00:00:00 [place] [facility] DPW Branch History SDNV 2023-01-18 2023-01-18 3 University o f Physical Activity 00:00:00 00:00:00 [place] [facility] MPS Branch History SDNV 2023-01-18 2023-01-18 5 University o f Financial 00:00:00 00:00:00 [place] [facility] History SDNV Food 2023-01-18 2023-01-18 1 Univers ity of Worry 00:00:00 00:00:00 [place] [facility] History SDNV Food 2023-01-18 2023-01-18 1 Univers ity of Scarcity 00:00:00 00:00:00 [place] [facility] History SDOH 2023-01-18 2023-01-18 2 University o f Transport Med 00:00:00 00:00:00 [place] Medic al [facility] History SDOH 2023-01-18 2023-01-18 2 University o f Transport Non-Med 00:00:00 00:00:00 [place] M edical Branch History SDOH 2023-01-18 2023-01-18 2 University o f Housing Unable to 00:00:00 00:00:00 [place] M edical Pay Branch History SDOH 2023-01-18 2023-01-18 1 University o f Housing Places 00:00:00 00:00:00 [place] Medi xiomy Lived Branch History SDOH 2023-01-18 2023-01-18 2 University o f Housing Homeless 00:00:00 00:00:00 [place] Me dical Last Year Branch Exposure to 2022-10-15 2022-10-25 Not sure University of SARS-CoV-2 (event) 00:00:00 11:09:00 [facility] Tobacco use and 2022-02-23 2022-02-23 Smokeless Universit y of exposure 00:00:00 00:00:00 tobacco non-user [facility] dical [place] Sex Assigned At [birth year] Universit y of 00:00:00 00:00:00 [facility] Smoking Status Start Date Stop Date Source Ex-smoker 2022-02-23 00:00:00 2022-02-23 00:00:00 Universi ty [place] [facility] Medications Ordered Filled Start Stop Current Ordering Indication Dosage Frequency Signature Comments Components Source Medication Medication Date Date Medication? Clinician (SIG) Name Name oxyCODONE 2022- No [id number] 10mg Un mercedes CR 02-11 ity of (oxyCONTIN 01:00: 20:02 [place] CR) 12 hr 00 :38 Medical tablet 10 Branch mg oxyCODONE 2022- No [id number] 5mg Un mercedes immediate 02-10 ity of release 20:01: 20:02 [place] tablet 5 mg 39 :40 Medical Branch oxyCODONE 2022- Yes [id number] 10mg Take 1 Unive rs CR 10 mg 12 02-10 tablet by it y of hr tablet 00:00: 04:59 mouth [place] 00 :00 every 12 Medical (twelve) Branch hours for 7 days. Indication s: acute pain oxyCODONE 5 2022- Yes 4647 5mg Take 1 Uni vers mg 02-10 tablet by ity of immediate 00:00: 04:59 mouth [place] release 00 :00 every 12 Medical tablet (twelve) Branch hours as needed for Pain (scale 7-10) for up to 7 days. Indication s: acute pain oxyCODONE 2023-0 2022- Yes 4647 10mg Take 1 Unive rs CR 10 mg 12 02-10-14 tablet by it y of hr tablet 00:00: 04:59 mouth [place] 00 :00 every 12 Medical (twelve) Branch hours for 7 days. Indication s: acute pain oxyCODONE 5 2022-0 2023- Yes 4647 5mg Take 1 Uni vers mg 02-10-14 tablet by ity of immediate 00:00: 04:59 mouth [place] release 00 :00 every 12 Medical tablet (twelve) Branch hours as needed for Pain (scale 7-10) for up to 7 days. Indication s: acute pain oxyCODONE 2022-0 2022- Yes 4647 10mg Take 1 Unive rs CR 10 mg 12 02-10-14 tablet by it y of hr tablet 00:00: 04:59 mouth [place] 00 :00 every 12 Medical (twelve) Branch hours for 7 days. Indication s: acute pain oxyCODONE 5 2022-0 202- Yes 4647 5mg Take 1 Uni vers mg 02-10-14 tablet by ity of immediate 00:00: 04:59 mouth [place] release 00 :00 every 12 Medical tablet (twelve) Branch hours as needed for Pain (scale 7-10) for up to 7 days. Indication s: acute pain gabapentin 2023-0 Yes [id number] 400mg Take 1 Univers 400 mg 6-29 capsule by ity of capsule 00:00: mouth in [place] [address] the Medical morning Branch and 1 capsule in the evening. gabapentin 2023-0 Yes [id number] 400mg Take 1 Univers 400 mg 6-29 capsule by ity of capsule 00:00: mouth in [place] 00 the Medical morning Branch and 1 capsule in the evening. gabapentin 2023-0 Yes [id number] 400mg Take 1 Univers 400 mg 6-29 capsule by ity of capsule 00:00: mouth in [place] [address] the Medical morning Branch and 1 capsule in the evening. gabapentin 2023-0 Yes [id number] 400mg Take 1 Univers 400 mg 6-29 capsule by ity of capsule 00:00: mouth in [place] [address] the Medical morning Branch and 1 capsule in the evening. gabapentin 2023-0 Yes [id number] 400mg Take 1 Univers 400 mg 6-29 capsule by ity of capsule 00:00: mouth in [address] and 1 capsule in the evening. gabapentin 2023-0 Yes [id number] 400mg Take 1 Univers 400 mg 6-29 capsule by ity of capsule 00:00: mouth in [address] and 1 capsule in the evening. gabapentin 2023-0 Yes [id number] 400mg Take 1 Univers 400 mg 6-29 capsule by ity of capsule 00:00: mouth in [address] and 1 capsule in the evening. gabapentin 2023-0 Yes [id number] 400mg Take 1 Univers 400 mg 6-29 capsule by ity of capsule 00:00: mouth in [address] and 1 capsule in the evening. gabapentin 2023-0 Yes [id number] 400mg Take 1 Univers 400 mg 6-29 capsule by ity of capsule 00:00: mouth in [address] and 1 capsule in the evening. gabapentin 2023-0 Yes [id number] 400mg Take 1 Univers 400 mg 6-29 capsule by ity of capsule 00:00: mouth in [address] and 1 capsule in the evening. gabapentin 2023-0 Yes [id number] 400mg Take 1 Univers 400 mg 6-29 capsule by ity of capsule 00:00: mouth in [address] and 1 capsule in the evening. ferrous 2023-0 Yes 325mg 325 mg, Univer s sulfate - Oral, Q ity of tablet 325 18:30: DAY, [place] mg 00 First dose Medical (after Branch last modificati on) on Tue01/28/23 at 1330, Until Discontinu ed, Routine acetaminoph 2023-0 Yes 500mg 500 mg, Un mercedes en 6-23 Oral, Q8H, ity of (TYLENOL) 03:00: First dose [place] tablet 500 00 on Tue Medical mg 01/27/23 at Branch 2200, Until Discontinu ed, Routine gabapentin 2023-0 Yes 800mg 800 mg, Uni vers (NEURONTIN) 6- Oral, QHS, it y of tablet 800 02:00: First dose [place] mg 00 (after Medical last Branch modificati on) on Tue01/27/23 at 2100, Until Discontinu ed, Routine cyclobenzap 3-0 Yes 10mg 10 mg, Univ ers rine 01-27 Oral, Q8H, ity of (FLEXERIL) 19:00: First dose [place] tablet 10 00 (after Medical mg last Branch modificati on) on Tue01/27/23 at 1400, Until Discontinu ed, Routine simethicone 2022-0 Yes 80mg 80 mg, Univ ers (GAS RELIEF 01-27 Oral, ity of (SIMETHICON 14:00: [place]HS, [place] E[place] 00 First dose Medical chewable (after Branch tablet 80 last mg modificati on) on Tue01/27/23 at 0900, Until Discontinu ed, Routine SERTraline 2022-0 Yes 50mg 50 mg, Unive rs (ZOLOFT) [...] at 0900, Until Discontinu ed, Routine polyethylen 2022-0 Yes [...] at 0900, Until Discontinu ed, Routine oxyCODONE 2022-0 Yes 10mg 10 mg, Univer s CR 01-27 Oral, ity of (oxyCONTIN 13:00: Q12H, [place] CR) 12 hr 00 First dose Medi xiomy tablet 10 (after Branch mg last modificati on) on [facility] 01/27/23 at 0800, Until Discontinu ed, Routine
hotel staff member approving Restricted medication : FELIPE GRECO gabapentin 2022-0 Yes 400mg 400 mg, Uni vers (NEURONTIN) 01-27 Oral, ity of capsule 400 12:30: BIDAC, [place] mg 00 First dose Medical (after Branch last modificati on) on [facility] 01/27/23 at 0730, Until Discontinu ed, Routine oxyCODONE-a 2022-0 Yes 1{tbl} 1 tablet, Univers cetaminophe 01-27 Oral, ity of n 11:00: Q6HPRN, [place] (PERCOCET) 58 Starting Medic al 5-325 mg on [facility] per tablet 01/27/23 at 1 tablet 0600, Until Discontinu ed, Routine, Pain (scale 4-6) ondansetron 0 Yes 4mg 4 mg, Slow Univers (ZOFRAN 01-27 IV Push, ity of (PF)) 11:00: Q6HPRN, [place] injection 4 57 Starting Medi xiomy mg on [facility] 01/27/23 at 0600, Until Discontinu ed, Routine, Nausea and Vomiting (N/V) naloxone 0 Yes .1mg 0.1 mg, Univer s (NARCAN) 01-27 Intravenou ity o f injection 11:00: s, PRN - [place] 0.1 mg 56 SEE Medical INSTRUCTIO Branch NS, Starting on [facility] 01/27/23 at 0600, Until Discontinu ed, CHASITY, Sedation/R espiratory Depression acetaminoph 2022-0 Yes 500mg 500 mg, Un mercedes en 01-27 Oral, ity of (TYLENOL) 11:00: Q8HPRNCairo, [place] tablet 500 54 Starting Medic al mg on [facility] 01/27/23 at 0600, Until Discontinu ed, Routine, Pain (scale 1-3) oxyCODONE 2022-0 Yes 10mg 10 mg, Univer s CR 01-27 Oral, ity of (oxyCONTIN 01:00: Q12H, [place] CR) 12 hr 00 First dose Medi xiomy tablet 10 on Tue Branch mg 01/26/23 at 2000, Until Discontinu ed, Routine
hotel staff member approving Restricted medication : FELIPE GRECO oxyCODONE-a 0 Yes 1{tbl} 1 tablet, Univers cetaminophe 6-21 [...] 00 every 8 Medical (eight) Branch hours. oxyCODONE-a 2023-0 Yes 4647 1{tbl} Take 1 [...] 00 every 8 Medical (eight) Branch hours. oxyCODONE-a 2023-0 Yes 4647 1{tbl} Take 1 [...] 00 every 8 Medical (eight) Branch hours. oxyCODONE-a 2023-0 Yes 4647 1{tbl} Take 1 [...] 00 every 8 Medical (eight) Branch hours. oxyCODONE-a 2023-0 Yes 4647 1{tbl} Take 1 [...] 00 every 8 Medical (eight) Branch hours. oxyCODONE-a 2023-0 Yes 4647 1{tbl} Take 1 [...] 00 every 8 Medical (eight) Branch hours. oxyCODONE-a 2023-0 Yes 4647 1{tbl} Take 1 [...] 00 every 8 Medical (eight) Branch hours. oxyCODONE-a 2023-0 Yes 4647 1{tbl} Take 1 [...] 00 every 8 Medical (eight) Branch hours. oxyCODONE-a 2023-0 Yes 4647 1{tbl} Take 1 [...] 00 every 8 Medical (eight) Branch hours. oxyCODONE-a 2023-0 Yes 4647 1{tbl} Take 1 [...] 00 every 8 Medical (eight) Branch hours. oxyCODONE-a 2023-0 Yes 4647 1{tbl} Take 1 [...] 00 every 8 Medical (eight) Branch hours. oxyCODONE-a 2022-0 Yes 4647 1{tbl} Take 1 Un mercedes cetaminophe 6-21 tablet by ity of n 5-325 mg 00:00: mouth [place] per tablet 00 every 6 Medica l (six) Branch hours as needed for Pain (scale 4-6). Indication s: acute pain oxyCODONE 2022-0 Yes 4647 10mg Take 1 Univer s CR 10 mg 12 - tablet by ity of hr tablet 00:00: mouth [place] 00 every 12 Medical (twelve) Branch hours. Indication s: acute pain gabapentin 2022-0 2023- No 400mg Take 1 Uni vers 400 mg 6-26 01- capsule by ity of capsule 00:00: 00:00 mouth 2 [place] 00 :00 (two) Medical times Branch daily before breakfast and dinner. gabapentin 2022-0 2023- No 800mg Take 1 Uni vers 800 mg 6-26 01- tablet by ity of tablet 00:00: 00:00 mouth at [place] 00 :00 bedtime. Medical Branch gabapentin 2022-0 2023- No 400mg Take 1 Uni vers 400 mg 6-26 01- capsule by ity of capsule 00:00: 00:00 mouth 2 [place] 00 :00 (two) Medical times Branch daily before breakfast and dinner. gabapentin 2022-0 3- No 800mg Take 1 Uni vers 800 mg 6-26 01- tablet by ity of tablet 00:00: 00:00 mouth at [place] 00 :00 bedtime. Medical Branch oxyCODONE-a 2022-0 3- No 4647 1{tbl} Take 1 U nivers cetaminophe 6-26 01- tablet by it y of n 5-325 [...] at 1630, Until Discontinu ed, Routine glycerin/mi 2023-0 Yes 225mL 225 mL, Un mercedes neral oil -20 Rectal, ity of (AGLO 17:24: QHSPRN, [place] ENEMA) 25 Starting Medical (COMPOUNDED on Tue ) Enem 225 01/25/23 at mL 1224, Until Discontinu ed, Routine, Constipati on unresolved by oral medication s gabapentin 2022-0 2022- No 400mg 400 mg, Un mercedes (NEURONTIN) 01-24 Oral, TID, i ty of capsule 400 01:45: 19:03 First dose [place] mg 00 :31 (after Medical last Branch modificati on) on [place] 01/23/23 at 2045, Until Discontinu ed, Routine gabapentin 2022-0 2022- No 300mg 300 mg, Un mercedes (NEURONTIN) 01-23 Oral, TID, i ty of capsule 300 14:45: 01:38 First dose [place] mg 00 :53 on [facility] 01/23/23 at Branch 0945, Until Discontinu ed, Routine simethicone 2022-0 Yes 80mg 80 mg, Univ ers (GAS RELIEF 01-22 Oral, ity of (SIMETHICON 18:00: PC+HS, [place] E)) 00 First dose Medical chewable on Tue tablet 80 01/22/23 at mg 1300, Until Discontinu ed, Routine sodium 2022-0 2022- No 1{enema 1 Enema, Uni vers phosphates 01-21 } Rectal, ity o f (READY-TO-U 16:45: 03:12 ONCE, 1 [place] SE ENEMA) 00 :00 dose, On Medica l 19-Tue gram/118 mL 01/21/23 at enema 1 1145, Enema Routine magnesium 2022-0 Yes 15mL 15 mL, Univer s hydroxide -15 Oral, ity of (MILK OF 18:45: DAILY, [place] MAGNESIA) 00 First dose Medi xiomy 400 mg/5 mL (after Branch suspension last 15 mL modificati on) on [facility] 01/20/23 at 1345, Until Discontinu ed, Routine ferrous 3-0 Yes 325mg 325 mg, Univer s sulfate 6-15 Oral, Q ity of tablet 325 18:28: OTHERDAY, [place] mg 40 First dose Medical on 01/20/23 at 1330, Until Discontinu ed, Routine HYDROmorpho 2022- No .5mg 0.5 mg, Un mercedes [...] 01-19 Oral, ity of (TYLENOL) 15:52: Q8HPRN, [place] tablet 500 07 Starting Medic al mg on Wed Branch 01/19/23 at 1052, Until Discontinu ed, Routine, Pain (scale 1-3) oxyCODONE-a 2022- No 1{tbl} 1 tablet, Univers cetaminophe 01-19 Oral, ity of n 15:51: 17:02 Q4HPRN, [place] (PERCOCET) 55 :14 Starting Medic al 5-325 mg on Tue Branch per tablet 01/19/23 at 1 tablet 1051, Until Tue01/26/23 at 1202, Routine, Pain (scale 4-6) sennosides- 0 Yes 1{tbl} 1 tablet, Univers docusate 01-19 Oral, ity of sodium 14:00: DAILY, [place] (SENOKOT-S) 00 First dose Me dical 8.6-50 mg on Wed Branch per tablet 01/19/23 at 1 tablet 0900, Until Discontinu ed, Routine sennosides- 0 Yes 1{tbl} 1 tablet, Univers docusate 01-19 Oral, ity of sodium 14:00: DAILY, [place] (SENOKOT-S) 00 First dose Me dical 8.6-50 [...] (Faculty): Pravin GRECO, ADULT/PEDI SPINE SURGERY cyclobenzap 2022-0 Yes 10mg 10 mg, Univ ers rine 6-13 Oral, Q8H, ity of (FLEXERIL) 19:00: First dose [place] tablet 10 00 (after Medical mg last Branch modificati on) on Tue01/18/23 at 1400, Until Discontinu ed, Routine cyclobenzap 2022-0 Yes 10mg 10 mg, Univ ers rine 6-13 Oral, Q8H, ity of (FLEXERIL) 19:00: First dose [place] tablet 10 00 (after Medical mg last Branch modificati on) on Tue01/18/23 at 1400, Until Discontinu ed, Routine oxyCODONE-a 2022-0 Yes 2{tbl} 2 tablet, Univers cetaminophe 01-18 Oral, Q6H, it y of n 18:15: First dose [place] (PERCOCET) 00 (after Medical 5-325 mg last Branch per tablet modificati 2 tablet on) on Tue01/18/23 at 1315, Until Discontinu ed oxyCODONE-a 2022-0 2022- No 2{tbl} 2 tablet, Univers cetaminophe 01-18 Oral, Q6H, i ty of n 18:15: 15:52 First dose [place] (PERCOCET) 00 :20 (after Medical 5-325 mg last Branch per tablet modificati 2 tablet on) on Tue01/18/23 at 1315, Until Discontinu ed acetaminoph 2022-0 2022- No 650mg 650 mg, U nivers en 01-18 Oral, Q6H, ity of (TYLENOL) 17:00: 17:02 First dose [place] tablet 650 00 :04 on Tue Medical mg 01/18/23 at Branch 1200, Until Discontinu ed, Routine magnesium 0 2022- No 2g 2 g, IV Univ ers sulfate in 01-18 Piggyback, it y of water 2 16:15: 17:49 Administer [place] as gram/50 mL 00 :00 over 60 Medica l (4 %) Minutes, Branch infusion 2 ONCE, 1 g dose, [facility] 01/18/23 at 1115, Routine vancomycin 2022- No 1000mg 1,000 mg, Univers (VANCOCIN) 01-18 IV ity of 1,000 mg in 15:30: 16:47 Piggyback, [place] NaCl 0.9% 00 :00 Q12H ABX, Medic al (NS) 250 mL 1 dose, Branc h VIAL-supervisory lifeguard dose IV (after piggyback last modificati on) on [facility] 01/18/23 at 1030, Administer over 60 Minutes, 250 mL
Reas on for Anti-Infec tive: Surgical Prophylaxi s
Vilchis rgical Prophylaxi s: Orthopaedi c
Durat ion of therapy: within 24 hours of surgery polyethylen 0 Yes 17g 17 g, Unive rs e glycol 01-18 Oral, ity of 3350 powder 15:15: DAILY, [place] 17 g 00 First dose Medical on [facility] 01/18/23 at 1015, Until Discontinu ed, Routine polyethylen 0 Yes 17g 17 g, Unive rs e glycol 01-18 Oral, ity of 3350 powder 15:15: DAILY, [place] 17 g 00 First dose Medical on [facility] 01/18/23 at 1015, Until Discontinu ed, Routine ARIPiprazol 0 Yes 15mg 15 mg, Univ ers e (ABILIFY) 01-18 Oral, ity of tablet 15 14:00: DAILY, [place] mg 00 First dose Medical on [facility] 01/18/23 at 0900, Until Discontinu ed, Routine SERTraline 0 Yes 50mg 50 mg, Unive rs (ZOLOFT) 01-18 Oral, ity of tablet 50 14:00: DAILY, [place] mg 00 First dose Medical on [facility] 01/18/23 at 0900, Until Discontinu ed, Routine SERTraline Yes 50mg 50 mg, Unive rs (ZOLOFT) 01-18 Oral, ity of tablet 50 14:00: DAILY, [place] mg 00 First dose Medical on Tue01/18/23 at 0900, Until Discontinu ed, Routine propofoL IV 2022- No 5ug/kg/ 5-50 Un mercedes infusion 01-1813 min mcg/kg/min ity of 03:50: 16:02 ?73.2 kg [place] 11 :50 (2.196-21. Medical 96 mL/hr, Branch [...] Slow IV ity of (PF)) 02:50: Push, [place] injection 44 Q2HPRN, 5 Medic al 50 mcg doses, Branch Starting on Tue01/17/23 at 2150, Until Discontinu ed, Routine, Pain (scale 7-10) FENTanyl PF 2022- No 50ug 50 mcg, Un mercedes (SUBLIMAZE 01-1814 Slow IV ity o f (PF)) 02:50: 02:50 Push, [place] injection 44 :00 Q2HPRN, 5 Medic al 50 mcg doses, Branch Starting on Tue01/17/23 at 2150, Until Tue01/18/23 at 2150, Routine, Pain (scale 7-10) BUPivacaine 2022- No PRN, Unive rs liposome 01-18 Starting ity of (PF) 01:34: 13:52 on Tue [place] (EXPAREL 00 :34 01/17/23 at Medic al (PF)) 1.3 % 2033, Branch (13.3 Intra-op mg/mL) 266 mg, NaCl 0.9% (NS) 20 mL vancomycin 2022- No PRN, Univer s (VANCOCIN) 01-18 Starting ity of injection 01:33: 13:52 on Tue [place] 00 :34 01/17/23 at [facility] 2032, Branch Until 01/18/23 at 0852, CHASITY, Intra-op topiramate Yes 50mg 50 mg, Unive rs (TOPAMAX) 01-18 Oral, BID, ity of tablet 50 01:00: First dose [place] mg 00 on [facility] 01/17/23 at [place] 1999, Until Discontinu ed, Routine
hotel staff member approving Restricted medication : BERNARDO TRENT topiramate 2022- No 50mg 50 mg, Univ ers (TOPAMAX) 01-18 Oral, BID, ity of tablet 50 01:00: 14:55 First dose [place] mg 00 :18 on [facility] 01/17/23 at [place] 1999, Until Discontinu ed, Routine
hotel staff member approving Restricted medication : BERNARDO TRENT lidocaine-e 2022- No PRN, Unive rs pinephrine 01-17 Starting ity of (XYLOCAINE 14:54: 13:52 on Tue [facility] WITH 00 :34 01/17/23 at [facility] EPINEPHRINE 0954, [place] ) 1 Until Tue %-1:100,000 01/18/23 at injection 0852, Routine, Intra-op heparin 2022- No PRN, Univers 10,000 01-17 Starting ity of units in NS 14:52: 13:52 on Tue [place] 1000 mL for 00 :34 01/17/23 at [facility] 0952, Branch Intra-op pantoprazol Yes 40mg 40 mg, Univ ers e 01-17 Oral, ity of (PROTONIX) 14:00: DAILY, [place] EC tablet 00 First dose Medi xiomy 40 mg on [facility] 01/17/23 at 0900, Until Discontinu ed, Routine
Indicatio n for use: None of the above lisinopriL 2023-0 Yes 10mg 10 mg, Unive rs (PRINIVIL,Z 6-12 Oral, ity of ESTRIL) 14:00: DAILY, [place] tablet 10 00 First dose Medi xiomy mg on Tue01/17/23 at 0900, Until Discontinu ed, Routine pantoprazol 0 202- No 40mg 40 mg, Uni vers e 12 06-14 Oral, ity of (PROTONIX) 14:00: 15:00 DAILY, [place] EC tablet 00 :41 First dose Medi xiomy 40 mg on Tue01/17/23 at 0900, Until Discontinu ed, Routine
Indicatio n for use: None of the above naloxone 2022-0 Yes .1mg 0.1 mg, Univer s (NARCAN) 6-12 Intravenou ity o f injection 12:45: s, PRN - [place] 0.1 mg 04 SEE Medical INSTRUCTIO Branch , Starting on Tue01/17/23 at 0745, Until Discontinu ed, CHASITY, Sedation/R espiratory Depression magnesium 2022-0 Yes 15mL 15 mL, Univer s hydroxide 6-12 Oral, ity of (MILK OF 12:45: QIDPRN, [place] MAGNESIA) 04 Starting Medica l 400 mg/5 mL on Tue suspension 01/17/23 at 15 mL 0745, Until Discontinu ed, Routine, Constipati on ondansetron 2022-0 Yes 4mg 4 mg, Slow Univers (ZOFRAN 6-12 IV Push, ity of (PF)) 12:45: Q6HPRN, [place] injection 4 04 Starting Medi xiomy mg on Tue01/17/23 at 0745, Until Discontinu ed, Routine, Nausea and Vomiting (N/V) naloxone 2022-0 Yes .1mg 0.1 mg, Univer s (NARCAN) 6-12 Intravenou ity o f injection 12:45: s, PRN - [place] 0.1 mg 04 SEE Medical INSTRUCTIO Branch NS, Starting on Tue01/17/23 at 0745, Until Discontinu ed, CHASITY, Sedation/R espiratory Depression ondansetron 2022-0 Yes 4mg 4 mg, Slow Univers (ZOFRAN 6-12 IV Push, ity of (PF)) 12:45: Q6HPRN, [place] injection 4 04 Starting Medi xiomy mg on Tue Branch 01/17/23 at 0745, Until Discontinu ed, Routine, Nausea and Vomiting (N/V) HYDROmorpho 2022- Yes .2mg 0.2 mg, Un mercedes ne 01-17 [...] IV ity of (DILAUDID) 12:45: 12:44 Push, [place] injection 04 :04 Q4HPRN, Medical 0.2 mg [...] 2022- No 1000mg 1,000 mg, Univers en 6-12 06-12 Oral, ity of (TYLENOL) 10:30: 10:37 ONCE, 1 [place] tablet 00 :00 dose, On Medical 1,000 mg Mon Branch 01/17/23 at 0530, Routine, DSU Pre-op lisinopriL 2023-0 Yes 20mg Take 20 mg U nivers 20 mg 12 by mouth. ity of tablet 07:47: [place] 38 Medical Branch dextroamphe 2023-0 Yes 10mg Take 1 Univ ers tamine-amph 5-01 tablet by ity of etamine 10 00:00: mouth in [place] mg tablet 00 the Medical morning. Branch dextroamphe 2023-0 Yes 10mg Take 1 Univ ers tamine-amph 5-01 tablet by ity of etamine 10 00:00: mouth in [place] mg tablet 00 the Medical morning. Branch dextroamphe 2023-0 Yes 10mg Take 1 Univ ers tamine-amph 5-01 tablet by ity of etamine 10 00:00: mouth in [place] mg tablet 00 the Medical morning. Branch dextroamphe 2023-0 Yes 10mg Take 1 Univ ers tamine-amph 5-01 tablet by ity of etamine 10 00:00: mouth in [place] mg tablet 00 the Medical morning. Branch dextroamphe 2023-0 Yes 10mg Take 1 Univ ers tamine-amph 5-01 tablet by ity of etamine 10 00:00: mouth in [place] mg tablet 00 the Medical morning. Branch dextroamphe 2023-0 Yes 10mg Take 1 Univ ers tamine-amph 5-01 tablet by [facility] etamine 10 00:00: mouth in [place] as mg tablet 00 the Medical morning. Branch dextroamphe 2023-0 Yes 10mg Take 1 [facility] tamine-amph 5-01 tablet by [facility] of etamine 10 00:00: mouth in [place] as mg tablet 00 the Medical morning. Branch dextroamphe 2023-0 Yes 10mg Take 1 [facility] tamine-amph 5-01 tablet by [facility] of etamine 10 00:00: mouth in [place] as mg tablet 00 the Medical morning. Branch dextroamphe 2023-0 Yes 10mg Take 1 [facility] tamine-amph 5-01 tablet by [facility] of etamine 10 00:00: mouth in [place] as mg tablet 00 the Medical morning. Branch dextroamphe 2023-0 Yes 10mg Take 1 [facility] tamine-amph 5-01 tablet by [facility] of etamine 10 00:00: mouth in [place] as mg tablet 00 the Medical morning. Branch dextroamphe 2023-0 Yes 10mg Take 1 [facility] tamine-amph 5-01 tablet by [facility]y of etamine 10 00:00: mouth in [place] as mg tablet 00 the Medical morning. Branch dextroamphe 2023-0 Yes 10mg Take 1 [facility] tamine-amph 5-01 tablet by [facility]y of etamine 10 00:00: mouth in [place] as mg tablet 00 the Medical morning. Branch dextroamphe 2023-0 Yes 10mg Take 1 [facility] tamine-amph 5-01 tablet by [facility] of etamine 10 00:00: mouth in [place] as mg tablet 00 the Medical morning. Branch dextroamphe 2023-0 Yes 10mg Take 1 [facility] tamine-amph 5-01 tablet by [facility] of etamine 10 00:00: mouth in [place] as mg tablet 00 the Medical morning. Branch dextroamphe 2023-0 Yes 10mg Take 1 [facility] tamine-amph 5-01 tablet by [facility] of etamine 10 00:00: mouth in [place] as mg tablet 00 the Medical morning. Branch dextroamphe 2023-0 Yes 10mg Take 1 [facility] tamine-amph 5-01 tablet by [facility]y of etamine 10 00:00: mouth in [place] as mg tablet 00 the Medical morning. Branch dextroamphe 2023-0 Yes 10mg Take 1 [facility] tamine-amph 5-01 tablet by [facility]y of etamine 10 00:00: mouth in [place] as mg tablet 00 the Medical morning. Branch dextroamphe 2023-0 Yes 10mg Take 1 [facility] tamine-amph 5-01 tablet by [facility]y of etamine 10 00:00: mouth in [place] as mg tablet 00 the Medical morning. Branch dextroamphe 2023-0 Yes 10mg Take 1 [facility] tamine-amph 5-01 tablet by [facility]y of etamine 10 00:00: mouth in [place] as mg tablet 00 the Medical morning. Branch dextroamphe 2023-0 Yes 10mg Take 1 [facility] tamine-amph 5-01 tablet by [facility] of etamine 10 00:00: mouth in [place] as mg tablet 00 the Medical morning. Branch ARIPiprazol 2023- Yes 15mg Take 1 [facility] vers e 15 mg 4-11 04-11 tablet by [facility] of tablet 00:00: 04:59 mouth. [place] 00 :00 Medical Branch ARIPiprazol 2022-0 2023- Yes 15mg Take 1 [facility] 15 mg 4-11 04-11 tablet by [facility] of tablet 00:00: 04:59 mouth. [place] 00 :00 Medical Branch ARIPiprazol 2022-0 2023- Yes 15mg Take 1 [facility] vers [facility] 15 mg 4-11 04-11 tablet by [facility]y of tablet 00:00: 04:59 mouth. [place] 00 :00 Medical Branch ARIPiprazol 2022-0 2023- Yes 15mg Take 1 [facility] vers [facility] 15 mg 4-11 04-11 tablet by [facility]y of tablet 00:00: 04:59 mouth. [place] 00 :00 Medical Branch ARIPiprazol 2022-0 2023- Yes 15mg Take 1 [facility] vers [facility] 15 mg 4-11 04-11 tablet by [facility]y of tablet 00:00: 04:59 mouth. [place] 00 :00 Medical Branch ARIPiprazol 2022-0 2023- Yes 15mg Take 1 [facility] vers [facility] 15 mg 4-11 04-11 tablet by ity of tablet 00:00: 04:59 mouth. [place] 00 :00 Medical Branch ARIPiprazol 2022-0 2023- Yes 15mg Take 1 [facility] vers [facility] 15 mg 4-11 04-11 tablet by ity of tablet 00:00: 04:59 mouth. [place] 00 :00 Medical Branch ARIPiprazol 2022-0 2023- Yes 15mg Take 1 [facility] vers [facility] 15 mg 4-11 04-11 tablet by ity of tablet 00:00: 04:59 mouth. [place] 00 :00 Medical Branch ARIPiprazol 2022-0 2023- Yes 15mg Take 1 [facility] vers [facility] 15 mg 4-11 04-11 tablet by ity of tablet 00:00: 04:59 mouth. [place] 00 :00 Medical Branch ARIPiprazol 2022-0 2023- Yes 15mg Take 1 [facility] 15 mg 4-11 04-11 tablet by [facility]y of tablet 00:00: 04:59 mouth. [place] 00 :00 Medical Branch ARIPiprazol 2022-0 2023- Yes 15mg Take 1 [facility] vers [facility] 15 mg 4-11 04-11 tablet by ity of tablet 00:00: 04:59 mouth. [place] 00 :00 Medical Branch ARIPiprazol 2022-0 2023- Yes 15mg Take 1 [facility] vers [facility] 15 mg 4-11 04-11 tablet by [facility]y of tablet 00:00: 04:59 mouth. [place] 00 :00 Medical Branch ARIPiprazol 2022-0 2023- Yes 15mg Take 1 [facility] vers [facility] 15 mg 4-11 04-11 tablet by [facility]y of tablet 00:00: 04:59 mouth. [place] 00 :00 Medical Branch ARIPiprazol 2022-0 2023- Yes 15mg Take 1 [facility] 15 mg 4-11 04-11 tablet by ity of tablet 00:00: 04:59 mouth. [place] 00 :00 Medical Branch ARIPiprazol 2022-0 2023- Yes 15mg Take 1 [facility] vers [facility] 15 mg 4-11 04-11 tablet by [facility]y of tablet 00:00: 04:59 mouth. [place] 00 :00 Medical Branch ARIPiprazol 0 2023- Yes 15mg Take 1 [facility] 15 mg 4-11 04-11 tablet by [facility]y of tablet 00:00: 04:59 mouth. [place] 00 :00 Medical Branch ARIPiprazol 2022-0 2023- Yes 15mg Take 1 [facility] vers [facility] 15 mg 4-11 04-11 tablet by ity of tablet 00:00: 04:59 mouth. [place] 00 :00 Medical Branch ARIPiprazol 2022-0 2023- Yes 15mg Take 1 [facility] 15 mg 4-11 04-11 tablet by ity of tablet 00:00: 04:59 mouth. [place] 00 :00 Medical Branch ARIPiprazol 2022-0 2023- Yes 15mg Take 1 [facility] 15 mg 4-11 04-11 tablet by [facility]y of tablet 00:00: 04:59 mouth. [place] 00 :00 Medical Branch ARIPiprazol 2022-0 2023- Yes 15mg Take 1 [facility] vers [facility] 15 mg 4-11 04-11 tablet by [facility]y of tablet 00:00: 04:59 mouth. [place] 00 :00 Medical Branch ergocalcife 2023-0 Yes [id number] Take 1 [facility] rol, 3-16 capsule by ity of vitamin d2, 00:00: mouth [place] 1,250 mcg 00 weekly. Medical (50,000 Branch unit) capsule ergocalcife 2023-0 Yes [id number] Take 1 [facility] rol, 3-16 capsule by ity of vitamin d2, 00:00: mouth [place] 1,250 mcg 00 weekly. Medical (50,000 Branch unit) capsule ergocalcife 2023-0 Yes [id number] Take 1 [facility] rol, 3-16 capsule by ity of vitamin d2, 00:00: mouth [place] 1,250 mcg 00 weekly. Medical (50,000 Branch unit) capsule ergocalcife 2023-0 Yes [id number] Take 1 [facility] rol, 3-16 capsule by ity of vitamin d2, 00:00: mouth [place] 1,250 mcg 00 weekly. Medical (50,000 Branch unit) capsule ergocalcife 2023-0 Yes [id number] Take 1 [facility] rol, 3-16 capsule by ity of vitamin d2, 00:00: mouth [place] 1,250 mcg 00 weekly. Medical (50,000 Branch unit) capsule ergocalcife 2023-0 Yes [id number] Take 1 [facility] rol, 3-16 capsule by ity of vitamin d2, 00:00: mouth [place] 1,250 mcg 00 weekly. Medical (50,000 Branch unit) capsule ergocalcife 2023-0 Yes [id number] Take 1 [facility] rol, 3-16 capsule by ity of vitamin d2, 00:00: mouth [place] 1,250 mcg 00 weekly. Medical (50,000 Branch unit) capsule ergocalcife 2023-0 Yes [id number] Take 1 [facility] rol, 3-16 capsule by ity of vitamin d2, 00:00: mouth [place] 1,250 mcg 00 weekly. Medical (50,000 Branch unit) capsule ergocalcife 2023-0 Yes [id number] Take 1 [facility] rol, 3-16 capsule by ity of vitamin d2, 00:00: mouth [place] 1,250 mcg 00 weekly. Medical (50,000 Branch unit) capsule ergocalcife 2023-0 Yes [id number] Take 1 [facility] rol, 3-16 capsule by ity of vitamin d2, 00:00: mouth [place] 1,250 mcg 00 weekly. Medical (50,000 Branch unit) capsule ergocalcife 2023-0 Yes [id number] Take 1 [facility] rol, 3-16 capsule by ity of vitamin d2, 00:00: mouth [place] 1,250 mcg 00 weekly. Medical (50,000 Branch unit) capsule ergocalcife 2023-0 Yes [id number] Take 1 [facility] rol, 3-16 capsule by ity of vitamin d2, 00:00: mouth [place] 1,250 mcg 00 weekly. Medical (50,000 Branch unit) capsule ergocalcife 2023-0 Yes [id number] Take 1 [facility] rol, 3-16 capsule by ity of vitamin d2, 00:00: mouth [place] 1,250 mcg 00 weekly. Medical (50,000 Branch unit) capsule ergocalcife 2023-0 Yes [id number] Take 1 [facility] rol, 3-16 capsule by ity of vitamin d2, 00:00: mouth [place] 1,250 mcg 00 weekly. Medical (50,000 Branch unit) capsule ergocalcife 2023-0 Yes [id number] Take 1 [facility] rol, 3-16 capsule by ity of vitamin d2, 00:00: mouth [place] 1,250 mcg 00 weekly. Medical (50,000 Branch unit) capsule ergocalcife 2023-0 Yes [id number] Take 1 [facility] rol, 3-16 capsule by ity of vitamin d2, 00:00: mouth [place] 1,250 mcg 00 weekly. Medical (50,000 Branch unit) capsule ergocalcife 2023-0 Yes [id number] Take 1 [facility] rol, 3-16 capsule by ity of vitamin d2, 00:00: mouth [place] 1,250 mcg 00 weekly. Medical (50,000 Branch unit) capsule ergocalcife 2023-0 Yes [id number] Take 1 [facility] rol, 3-16 capsule by ity of vitamin d2, 00:00: mouth [place] 1,250 mcg 00 weekly. Medical (50,000 Branch unit) capsule ergocalcife 2023-0 Yes [id number] Take 1 [facility] rol, 3-16 capsule by ity of vitamin d2, 00:00: mouth [place] 1,250 mcg 00 weekly. Medical (50,000 Branch unit) capsule ergocalcife 2023-0 Yes [id number] Take 1 [facility] rol, 3-16 capsule by ity of vitamin d2, 00:00: mouth [place] 1,250 mcg 00 weekly. Medical (50,000 Branch unit) capsule ergocalcife 2023-0 Yes [id number] Take 1 [facility] rol, 3-16 capsule by ity of vitamin d2, 00:00: mouth [place] 1,250 mcg 00 weekly. Medical (50,000 Branch unit) capsule ergocalcife 2023-0 Yes [id number] Take 1 [facility] rol, 3-16 capsule by ity of vitamin d2, 00:00: mouth [place] 1,250 mcg 00 weekly. Medical (50,000 Branch unit) capsule ergocalcife 2023-0 Yes [id number] Take 1 [facility] rol, 3-16 capsule by ity of vitamin d2, 00:00: mouth [place] 1,250 mcg 00 weekly. Medical (50,000 Branch unit) capsule ergocalcife 2023-0 Yes [id number] Take 1 [facility] rol, 3-16 capsule by ity of vitamin d2, 00:00: mouth [place] 1,250 mcg 00 weekly. Medical (50,000 Branch unit) capsule ergocalcife 2023-0 Yes [id number] Take 1 [facility] rol, 3-16 capsule by ity of vitamin d2, 00:00: mouth [place] 1,250 mcg 00 weekly. Medical (50,000 Branch unit) capsule ergocalcife 2023-0 Yes [id number] Take 1 [facility] rol, 3-16 capsule by ity of vitamin d2, 00:00: mouth [place] 1,250 mcg 00 weekly. Medical (50,000 Branch unit) capsule ergocalcife 2023-0 Yes [id number] Take 1 [facility] rol, 3-16 capsule by ity of vitamin d2, 00:00: mouth [place] 1,250 mcg 00 weekly. Medical (50,000 Branch unit) capsule ergocalcife 2023-0 Yes [id number] Take 1 [facility] rol, 3-16 capsule by ity of vitamin d2, 00:00: mouth [place] 1,250 mcg 00 weekly. Medical (50,000 Branch unit) capsule ergocalcife 2023-0 Yes [id number] Take 1 [facility] rol, 3-16 capsule by ity of vitamin d2, 00:00: mouth [place] 1,250 mcg 00 weekly. Medical (50,000 Branch unit) capsule ergocalcife 2023-0 Yes [id number] Take 1 [facility] rol, 3-16 capsule by ity of vitamin d2, 00:00: mouth [place] 1,250 mcg 00 weekly. Medical (50,000 Branch unit) capsule ergocalcife 2023-0 Yes [id number] Take 1 [facility] rol, 3-16 capsule by ity of vitamin d2, 00:00: mouth [place] 1,250 mcg 00 weekly. Medical (50,000 Branch unit) capsule ergocalcife 2023-0 Yes [id number] Take 1 [facility] rol, 3-16 capsule by ity of vitamin d2, 00:00: mouth [place] 1,250 mcg 00 weekly. Medical (50,000 Branch unit) capsule ergocalcife 2023-0 Yes [id number] Take 1 [facility] rol, 3-16 capsule by ity of vitamin d2, 00:00: mouth [place] 1,250 mcg 00 weekly. Medical (50,000 Branch unit) capsule ergocalcife 2023-0 Yes [id number] Take 1 [facility] rol, 3-16 capsule by ity of vitamin d2, 00:00: mouth [place] 1,250 mcg 00 weekly. Medical (50,000 Branch unit) capsule ergocalcife 2023-0 Yes [id number] Take 1 [facility] rol, 3-16 capsule by ity of vitamin d2, 00:00: mouth [place] 1,250 mcg 00 weekly. Medical (50,000 Branch unit) capsule ergocalcife 2023-0 Yes [id number] Take 1 [facility] rol, 3-16 capsule by ity of vitamin d2, 00:00: mouth [place] 1,250 mcg 00 weekly. Medical (50,000 Branch unit) capsule ergocalcife 2023-0 Yes [id number] Take 1 [facility] rol, 3-16 capsule by ity of vitamin d2, 00:00: mouth [place] 1,250 mcg 00 weekly. Medical (50,000 Branch unit) capsule ergocalcife 2023-0 Yes [id number] Take 1 [facility] rol, 3-16 capsule by ity of vitamin d2, 00:00: mouth [place] 1,250 mcg 00 weekly. Medical (50,000 Branch unit) capsule topiramate 2023-0 2024- No 50mg Take 1 [facility] 50 mg 2-05 09- tablet by ity of tablet 00:00: 05:59 mouth. [place] 00 :00 Medical Branch topiramate 2023-0 2024- No 50mg Take 1 [facility] 50 mg 2-05 09- tablet by ity of tablet 00:00: 05:59 mouth. [place] 00 :00 Medical Branch topiramate 2023-0 2024- No 50mg Take 1 [facility] 50 mg 2-10 - tablet by ity of tablet 00:00: 05:59 mouth. [place] 00 :00 Medical Branch topiramate 2023-0 2024- No 50mg Take 1 [facility] 50 mg 2-10 - tablet by ity of tablet 00:00: 05:59 mouth. [place] 00 :00 Medical Branch topiramate 2023-0 2024- No 50mg Take 1 [facility] 50 mg 2-05 09- tablet by ity of tablet 00:00: 05:59 mouth. [place] 00 :00 Medical Branch topiramate 2023-0 2024- No 50mg Take 1 [facility] 50 mg 2-05 09- tablet by ity of tablet 00:00: 05:59 mouth. [place] 00 :00 Medical Branch topiramate 2023-0 2024- No 50mg Take 1 [facility] 50 mg 2-10 - tablet by ity of tablet 00:00: 05:59 mouth. [place] 00 :00 Medical Branch topiramate 2023-0 2024- No 50mg Take 1 [facility] 50 mg 2-10 - tablet by ity of tablet 00:00: 05:59 mouth. [place] 00 :00 Medical Branch topiramate 2023-0 2024- No 50mg Take 1 [facility] 50 mg 2-10 -11 tablet by ity of tablet 00:00: 05:59 mouth. [place] 00 :00 Medical Branch topiramate 2023-0 2024- No 50mg Take 1 [facility] 50 mg 2-10 -11 tablet by ity of tablet 00:00: 05:59 mouth. [place] 00 :00 Medical Branch topiramate 2023-0 2024- No 50mg Take 1 [facility] 50 mg 2-10 -11 tablet by ity of tablet 00:00: 05:59 mouth. [place] 00 :00 Medical Branch topiramate 2023-0 2024- No 50mg Take 1 [facility] 50 mg 2-10 -11 tablet by ity of tablet 00:00: 05:59 mouth. [place] 00 :00 Medical Branch topiramate 2023-0 2024- No 50mg Take 1 [facility] 50 mg 2-10 -11 tablet by ity of tablet 00:00: 05:59 mouth. [place] 00 :00 Medical Branch topiramate 2023-0 2024- No 50mg Take 1 [facility] 50 mg 2-10 -11 tablet by ity of tablet 00:00: 05:59 mouth. [place] 00 :00 Medical Branch topiramate 2023-0 2024- No 50mg Take 1 [facility] 50 mg 2-10 -11 tablet by ity of tablet 00:00: 05:59 mouth. [place] 00 :00 Medical Branch topiramate 2023-0 2024- No 50mg Take 1 [facility] 50 mg 2-10 -11 tablet by ity of tablet 00:00: 05:59 mouth. [place] 00 :00 Medical Branch topiramate 2023-0 2024- No 50mg Take 1 [facility] 50 mg 2-10 -11 tablet by ity of tablet 00:00: 05:59 mouth. [place] 00 :00 Medical Branch topiramate 2023-0 2024- No 50mg Take 1 [facility] 50 mg 2-10 -11 tablet by ity of tablet 00:00: 05:59 mouth. [place] 00 :00 Medical Branch topiramate 2023-0 2024- No 50mg Take 1 [facility] 50 mg 2-10 -11 tablet by ity of tablet 00:00: 05:59 mouth. [place] 00 :00 Medical Branch topiramate 2023-0 2024- No 50mg Take 1 [facility] 50 mg 2-10 -11 tablet by ity of tablet 00:00: 05:59 mouth. [place] 00 :00 Medical Branch lisinopriL 2022-1 Yes 20mg Take 20 mg U nivers 20 mg 1-21 by mouth. ity of tablet 06:17: [place] [address] Medical Branch lisinopriL 2021-1 Yes 20mg Take 20 mg U nivers 20 mg 1-21 by mouth. ity of tablet 06:17: [address] lisinopriL 2021-08 Yes 20mg Take 20 mg U nivers 20 mg 1-21 by mouth. ity of tablet 06:17: [address] lisinopriL 2021-08 Yes 20mg Take 20 mg U nivers 20 mg 1-21 by mouth. ity of tablet 06:17: [address] lisinopriL 2021-08 Yes 20mg Take 20 mg U nivers 20 mg 1-21 by mouth. ity of tablet 06:17: [address] lisinopriL 2021-08 Yes 20mg Take 20 mg U nivers 20 mg 1-21 by mouth. ity of tablet 06:17: [address] lisinopriL 2021-08 Yes 20mg Take 20 mg U nivers 20 mg 1-21 by mouth. ity of tablet 06:17: [address] lisinopriL 2021-08 Yes 20mg Take 20 mg U nivers 20 mg 1-21 by mouth. ity of tablet 06:17: [address] lisinopriL 2021-08 Yes 20mg Take 20 mg U nivers 20 mg 1-21 by mouth. ity of tablet 06:17: [address] lisinopriL 2021-08 Yes 20mg Take 20 mg U nivers 20 mg 1-21 by mouth. ity of tablet 06:17: [address] lisinopriL 2021-08 Yes 20mg Take 20 mg U nivers 20 mg 1-21 by mouth. ity of tablet 06:17: [address] lisinopriL 2021-08 Yes 20mg Take 20 mg U nivers 20 mg 1-21 by mouth. ity of tablet 06:17: [address] lisinopriL 2021-08 Yes 20mg Take 20 mg U nivers 20 mg 1-21 by mouth. ity of tablet 06:17: [address] lisinopriL 2021-08 Yes 20mg Take 20 mg U nivers 20 mg 1-21 by mouth. ity of tablet 06:17: [address] lisinopriL 2021-08 Yes 20mg Take 20 mg U nivers 20 mg 1-21 by mouth. ity of tablet 06:17: [address] lisinopriL 2021-08 Yes 20mg Take 20 mg U nivers 20 mg 1-21 by mouth. ity of tablet 06:17: [address] lisinopriL 2021-08 Yes 20mg Take 20 mg U nivers 20 mg 1-21 by mouth. ity of tablet 06:17: [address] lisinopriL 2021-08 Yes 20mg Take 20 mg U nivers 20 mg 1-21 by mouth. ity of tablet 06:17: [address] lisinopriL 2021-08 Yes 20mg Take 20 mg U nivers 20 mg 1-21 by mouth. ity of tablet 06:17: [address] lisinopriL 2021-08 Yes 20mg Take 20 mg U nivers 20 mg 1-21 by mouth. ity of tablet 06:17: [address] lisinopriL 2021-08 Yes 20mg Take 20 mg U nivers 20 mg 1-21 by mouth. ity of tablet 06:17: [address] lisinopriL 2021-08 Yes 20mg Take 20 mg U nivers 20 mg 1-21 by mouth. ity of tablet 06:17: [address] lisinopriL 2021-08 Yes 20mg Take 20 mg U nivers 20 mg 1-21 by mouth. ity of tablet 06:17: [address] lisinopriL 2021-08 Yes 20mg Take 20 mg U nivers 20 mg 1-21 by mouth. ity of tablet 06:17: [address] lisinopriL 2021-08 Yes 20mg Take 20 mg U nivers 20 mg 1-21 by mouth. ity of tablet 06:17: [address] lisinopriL 2021-08 Yes 20mg Take 20 mg U nivers 20 mg 1-21 by mouth. ity of tablet 06:17: [address] lisinopriL 2021-08 Yes 20mg Take 20 mg U nivers 20 mg 1-21 by mouth. ity of tablet 06:17: [address] lisinopriL 2021-08 Yes 20mg Take 20 mg U nivers 20 mg 1-21 by mouth. ity of tablet 06:17: [address] lisinopriL 2021-08 Yes 20mg Take 20 mg U nivers 20 mg 1-21 by mouth. ity of tablet 06:17: [address] lisinopriL 2021-08 Yes 20mg Take 20 mg U nivers 20 mg 1-21 by mouth. ity of tablet 06:17: [address] lisinopriL 2021-08 Yes 20mg Take 20 mg U nivers 20 mg 1-21 by mouth. ity of tablet 06:17: [address] lisinopriL 2021-08 Yes 20mg Take 20 mg U nivers 20 mg 1-21 by mouth. ity of tablet 06:17: [address] lisinopriL 2021-08 Yes 20mg Take 20 mg U nivers 20 mg 1-21 by mouth. ity of tablet 06:17: [address] lisinopriL 2021-08 Yes 20mg Take 20 mg U nivers 20 mg 1-21 by mouth. ity of tablet 06:17: [address] lisinopriL 2021-08 Yes 20mg Take 20 mg U nivers 20 mg 1-21 by mouth. ity of tablet 06:17: [address] lisinopriL 2021-08 Yes 20mg Take 20 mg U nivers 20 mg 1-21 by mouth. ity of tablet 06:17: [address] lisinopriL 2021-08 Yes 20mg Take 20 mg U nivers 20 mg 1-21 by mouth. ity of tablet 06:17: [address] lisinopriL 2021-08 Yes 20mg Take 20 mg U nivers 20 mg 1-21 by mouth. ity of tablet 06:17: [address] lisinopriL 2021-08 Yes 20mg Take 20 mg U nivers 20 mg 1-21 by mouth. ity of tablet 06:17: [address] lisinopriL 2021-08 Yes 20mg Take 20 mg U nivers 20 mg 1-21 by mouth. ity of tablet 06:17: [address] meloxicam 2021-2021- No [id number] 7.5mg Take 1 [facility] 7.5 mg 8-04 10-04 tablet by ity of tablet 00:00: 04:59 mouth in [place] 00 :[address] [facility] for 60 days. meloxicam 2021-2021- No [id number] 7.5mg Take 1 [facility] 7.5 mg 8-04 10-04 tablet by ity of tablet 00:00: 04:59 mouth in [place] 00 :00 the Medical morning Branch for 60 days. meloxicam 2022-0 2022- No [id number] 7.5mg Take 1 [facility] 7.5 mg 8-04 10-04 tablet by ity of tablet 00:00: 04:59 mouth in [place] 00 :00 the [facility] morning Branch for 60 days. meloxicam 2022-0 2022- No [id number] 7.5mg Take 1 [facility] 7.5 mg 8-04 10-04 tablet by ity of tablet 00:00: 04:59 mouth in [place] 00 :00 the [facility] morning Branch for 60 days. meloxicam 2022-0 2022- No [id number] 7.5mg Take 1 [facility] 7.5 mg 8-04 10-04 tablet by ity of tablet 00:00: 04:59 mouth in [place] 00 :[address] [facility] for 60 days. meloxicam 2022-0 2022- No [id number] 7.5mg Take 1 [facility] 7.5 mg 8-04 10-04 tablet by ity of tablet 00:00: 04:59 mouth in [place] 00 :[address] [facility] for 60 days. meloxicam 2022-0 2022- No [id number] 7.5mg Take 1 [facility] 7.5 mg 8-04 10-04 tablet by ity of tablet 00:00: 04:59 mouth in [place] 00 :[address] [facility] for 60 days. meloxicam 2022-0 2022- No [id number] 7.5mg Take 1 [facility] 7.5 mg 8-04 10-04 tablet by ity of tablet 00:00: 04:59 mouth in [place] 00 :[address] [facility] for 60 days. meloxicam 2022-0 2022- No [id number] 7.5mg Take 1 [facility] 7.5 mg 8-04 10-04 tablet by ity of tablet 00:00: 04:59 mouth in [place] 00 :[address] [facility] for 60 days. cyclobenzap 2022-0 2022- No [id number] 10mg Take 1 [facility] rine 10 mg 8-04 09-04 tablet by ity of tablet 00:00: 04:59 mouth in [place] 00 :00 the [facility] morning Branch and 1 tablet at noon and 1 tablet in the evening. Do all this for 30 days. acetaminoph 2021-0 2021- No [id number] 1000mg Take 2 [facility] en (TYLENOL 8- 09-04 tablets by i ty of EXTRA 00:00: 04:59 mouth [place] STRENGTH) 00 :00 every 8 Medical 500 mg (eight) Branch tablet hours as needed for Pain for up to 30 days. cyclobenzap 2021-0 2021- No [id number] 10mg Take 1 [facility] rine 10 mg 8-11 14-04 tablet by ity of tablet 00:00: 04:59 mouth in [place] 00 :00 the Medical morning Branch and 1 tablet at noon and 1 tablet in the evening. Do all this for 30 days. acetaminoph 2021-0 2021- No [id number] 1000mg Take 2 [facility] en (TYLENOL 8- 09-04 tablets by i ty of EXTRA 00:00: 04:59 mouth [place] STRENGTH) 00 :00 every 8 Medical 500 mg (eight) Branch tablet hours as needed for Pain for up to 30 days. cyclobenzap 2021-0 2021- No [id number] 10mg Take 1 [facility] rine 10 mg 8-11 14-04 tablet by ity of tablet 00:00: 04:59 mouth in [place] 00 :00 the Medical morning Branch and 1 tablet at noon and 1 tablet in the evening. Do all this for 30 days. acetaminoph 2021-0 2021- No [id number] 1000mg Take 2 [facility] en (TYLENOL 8-11 14-04 tablets by i ty of EXTRA 00:00: 04:59 mouth [place] STRENGTH) 00 :00 every 8 Medical 500 mg (eight) Branch tablet hours as needed for Pain for up to 30 days. cyclobenzap 2021-0 2021- No [id number] 10mg Take 1 [facility] rine 10 mg 8-11 14-04 tablet by ity of tablet 00:00: 04:59 mouth in [place] 00 :00 the Medical morning Branch and 1 tablet at noon and 1 tablet in the evening. Do all this for 30 days. acetaminoph 2021-0 2021- No [id number] 1000mg Take 2 [facility] en (TYLENOL 8- 09-04 tablets by i ty of EXTRA 00:00: 04:59 mouth [place] STRENGTH) 00 :00 every 8 Medical 500 mg (eight) Branch tablet hours as needed for Pain for up to 30 days. lisinopriL 2022-0 Yes 20mg Take 20 mg U nivers 20 mg 7-19 by mouth. ity of tablet 08:19: [address] lisinopriL 2022-0 Yes 20mg Take 20 mg U nivers 20 mg 7-19 by mouth. ity of tablet 08:19: [address] lisinopriL 2022-0 Yes 20mg Take 20 mg U nivers 20 mg 7-19 by mouth. ity of tablet 08:19: [address] lisinopriL 2022-0 Yes 20mg Take 20 mg U nivers 20 mg 7-19 by mouth. ity of tablet 08:19: [address] lisinopriL 2022-0 Yes 20mg Take 20 mg U nivers 20 mg 7-19 by mouth. ity of tablet 08:19: [address] lisinopriL 2022-0 Yes 20mg Take 20 mg U nivers 20 mg 7-19 by mouth. ity of tablet 08:19: [address] lisinopriL 2022-0 Yes 20mg Take 20 mg U nivers 20 mg 7-19 by mouth. ity of tablet 08:19: [address] lisinopriL 2022-0 Yes 20mg Take 20 mg U nivers 20 mg 7-19 by mouth. ity of tablet 08:19: [address] lisinopriL 2022-0 Yes 20mg Take 20 mg U nivers 20 mg 7-19 by mouth. ity of tablet 08:19: [address] lisinopriL 2022-0 Yes 20mg Take 20 mg U nivers 20 mg 7-19 by mouth. ity of tablet 08:19: [address] lisinopriL 2022-0 Yes 20mg Take 20 mg U nivers 20 mg 7-19 by mouth. ity of tablet 08:19: [address] lisinopriL 2022-0 Yes 20mg Take 20 mg U nivers 20 mg 7-19 by mouth. ity of tablet 08:19: [address] lisinopriL 2022-0 Yes 20mg Take 20 mg U nivers 20 mg 7-19 by mouth. ity of tablet 08:19: [address] lisinopriL 2022-0 Yes 20mg Take 20 mg U nivers 20 mg 7-19 by mouth. ity of tablet 08:19: [address] lisinopriL 2022-0 Yes 20mg Take 20 mg U nivers 20 mg 7-19 by mouth. ity of tablet 08:19: [address] lisinopriL 2022-0 Yes 20mg Take 20 mg U nivers 20 mg 7-19 by mouth. ity of tablet 08:19: [address] lisinopriL 2022-0 Yes 20mg Take 20 mg U nivers 20 mg 7-19 by mouth. ity of tablet 08:19: [address] lisinopriL 2022-0 Yes 20mg Take 20 mg U nivers 20 mg 7-19 by mouth. ity of tablet 08:19: [address] lisinopriL 2022-0 Yes 20mg Take 20 mg U nivers 20 mg 7-19 by mouth. ity of tablet 08:19: [address] Dose 2022-0 No Unknown 5-09 00:00: [...] mg by ity of tablet 00:00: mouth. [address] SERTraline 2020-08 Yes 300mg Take 300 Un [place] 100 mg 2-13 mg by ity of tablet 00:00: mouth. [facility] SERTraline 2020-08 Yes 300mg Take 300 Un [place] 100 mg 2-13 mg by ity of tablet 00:00: mouth. [place] [facility] SERTraline 2020-08 Yes 300mg Take 300 Un [place] 100 mg 2-13 mg by ity of tablet 00:00: mouth. [place] [facility] SERTraline 2020-08 Yes 300mg Take 300 Un [place] 100 mg 2-13 mg by ity of tablet 00:00: mouth. [place] [facility] SERTraline 2020-08 Yes 300mg Take 300 Un [place] 100 mg 2-13 mg by ity of tablet 00:00: mouth. [place] [facility] SERTraline 2020-08 Yes 300mg Take 300 Un [place] 100 mg 2-13 mg by ity of tablet 00:00: mouth. [place] [facility] SERTraline 2020-08 Yes 300mg Take 300 Un [place] 100 mg 2-13 mg by ity of tablet 00:00: mouth. [place] [facility] SERTraline 2020-08 Yes 300mg Take 300 [place] 100 mg 2-13 mg by ity of tablet 00:00: mouth. [place] [facility] SERTraline 2020-08 Yes 300mg Take 300 Un [place] 100 mg 2-13 mg by ity of tablet 00:00: mouth. [place] [facility] SERTraline 2020-08 Yes 300mg Take 300 [place] 100 mg 2-13 mg by ity of tablet 00:00: mouth. [place] [facility] SERTraline 2020-08 Yes 300mg Take 300 [place] 100 mg 2-13 mg by ity of tablet 00:00: mouth. [place] [facility] SERTraline 2020-08 Yes 300mg Take 300 Un [place] 100 mg 2-13 mg by ity of tablet 00:00: mouth. [place] [facility] SERTraline 2020-08 Yes 300mg Take 300 [place] 100 mg 2-13 mg by ity of tablet 00:00: mouth. [place] [facility] SERTraline 2020-08 Yes 300mg Take 300 [place] 100 mg 2-13 mg by ity of tablet 00:00: mouth. [place] [facility] SERTraline 2020-08 Yes 300mg Take 300 Un [place] 100 mg 2-13 mg by ity of tablet 00:00: mouth. [place] [facility] SERTraline 2020-08 Yes 300mg Take 300 Un [place] 100 mg 2-13 mg by ity of tablet 00:00: mouth. [place] [facility] SERTraline 2020-08 Yes 300mg Take 300 [place] 100 mg 2-13 mg by ity of tablet 00:00: mouth. [place] [facility] SERTraline 2020-08 Yes 300mg Take 300 [place] 100 mg 2-13 mg by ity of tablet 00:00: mouth. [place] [facility] SERTraline 2020-08 Yes 300mg Take 300 [place] 100 mg 2-13 mg by ity of tablet 00:00: mouth. [place] [facility] SERTraline 2020-08 Yes 300mg Take 300 [place] 100 mg 2-13 mg by ity of tablet 00:00: mouth. [place] [facility] SERTraline 2020-08 Yes 300mg Take 300 [place] 100 mg 2-13 mg by ity of tablet 00:00: mouth. [place] [facility] SERTraline 2020-08 Yes 300mg Take 300 [facility] [place] 100 mg 2-13 mg by ity of tablet 00:00: mouth. [place] [facility] SERTraline 2020-08 Yes 300mg Take 300 [place] 100 mg 2-13 mg by ity of tablet 00:00: mouth. [place] [facility] SERTraline 2020-08 Yes 300mg Take 300 [place] 100 mg 2-13 mg by ity of tablet 00:00: mouth. [place] [facility] SERTraline 2020-08 Yes 300mg Take 300 Un [place] 100 mg 2-13 mg by ity of tablet 00:00: mouth. [place] [facility] SERTraline 2020-08 Yes 300mg Take 300 Un [place] 100 mg 2-13 mg by ity of tablet 00:00: mouth. [place] [facility] SERTraline 2020-08 Yes 300mg Take 300 [place] 100 mg 2-13 mg by ity of tablet 00:00: mouth. [address] SERTraline 2020-08 Yes 300mg Take 300 Un [place] 100 mg 2-13 mg by ity of tablet 00:00: mouth. [address] SERTraline 2020-08 Yes 300mg Take 300 Un [place] 100 mg 2-13 mg by ity of tablet 00:00: mouth. [place] [facility] SERTraline 2020-08 Yes 300mg Take 300 Un [place] 100 mg 2-13 mg by ity of tablet 00:00: mouth. [place] [facility] SERTraline 2020-08 Yes 300mg Take 300 [place] 100 mg 2-13 mg by ity of tablet 00:00: mouth. [place] [facility] SERTraline 2020-08 Yes 300mg Take 300 Un [place] 100 mg 2-13 mg by ity of tablet 00:00: mouth. [place] [facility] SERTraline 2020-08 Yes 300mg Take 300 Un [place] 100 mg 2-13 mg by ity of tablet 00:00: mouth. [place] [facility] SERTraline 2020-08 Yes 300mg Take 300 [place] 100 mg 2-13 mg by ity of tablet 00:00: mouth. [place] [facility] SERTraline 2020-08 Yes 300mg Take 300 Un [place] 100 mg 2-13 mg by ity of tablet 00:00: mouth. [place] [facility] SERTraline 2020-08 Yes 300mg Take 300 [facility] [place] 100 mg 2-13 mg by ity of tablet 00:00: mouth. [place] [facility] SERTraline 2020-08 Yes 300mg Take 300 [facility] [place] 100 mg 2-13 mg by ity of tablet 00:00: mouth. [place] [facility] SERTraline 2020-08 Yes 300mg Take 300 [facility] [place] 100 mg 2-13 mg by ity of tablet 00:00: mouth. [place] [facility] SERTraline 2020-08 Yes 300mg Take 300 [place] 100 mg 2-13 mg by ity of tablet 00:00: mouth. [place] [facility] SERTraline 2020-08 Yes 300mg Take 300 [place] 100 mg 2-13 mg by ity of tablet 00:00: mouth. [place] [facility] SERTraline 2020-08 Yes 300mg Take 300 [place] 100 mg 2-13 mg by ity of tablet 00:00: mouth. [place] [facility] SERTraline 2020-08 Yes 300mg Take 300 [place] 100 mg 2-13 mg by ity of tablet 00:00: mouth. [place] [facility] SERTraline 2020-08 Yes 300mg Take 300 [place] 100 mg 2-13 mg by ity of tablet 00:00: mouth. [place] [facility] SERTraline 2020-08 Yes 300mg Take 300 [place] 100 mg 2-13 mg by ity of tablet 00:00: mouth. [place] [facility] SERTraline 2020-08 Yes 300mg Take 300 Un [place] 100 mg 2-13 mg by ity of tablet 00:00: mouth. [place] [facility] SERTraline 2020-08 Yes 300mg Take 300 Un [place] 100 mg 2-13 mg by ity of tablet 00:00: mouth. [place] [facility] SERTraline 2020-08 Yes 300mg Take 300 Un [place] 100 mg 2-13 mg by ity of tablet 00:00: mouth. [place] [facility] SERTraline 2020-08 Yes 300mg Take 300 Un [place] 100 mg 2-13 mg by ity of tablet 00:00: mouth. [place] [facility] SERTraline 2020-08 Yes 300mg Take 300 Un [place] 100 mg 2-13 mg by ity of tablet 00:00: mouth. [place] [facility] SERTraline 2020-08 Yes 300mg Take 300 Un [place] 100 mg 2-13 mg by ity of tablet 00:00: mouth. [place] [facility] SERTraline 2020-08 Yes 300mg Take 300 Un [place] 100 mg 2-13 mg by ity of tablet 00:00: mouth. [place] [facility] SERTraline 2020-08 Yes 300mg Take 300 Un [place] 100 mg 2-13 mg by ity of tablet 00:00: mouth. [place] [facility] SERTraline 2020-08 Yes 300mg Take 300 Un [place] 100 mg 2-13 mg by ity of tablet 00:00: mouth. [place] [facility] SERTraline 2020-08 Yes 300mg Take 300 Un [place] 100 mg 2-13 mg by ity of tablet 00:00: mouth. [place] [facility] SERTraline 2020-08 Yes 300mg Take 300 Un [place] 100 mg 2-13 mg by ity of tablet 00:00: mouth. [address] SERTraline 2020-08 Yes 300mg Take 300 Un [place] 100 mg 2-13 mg by ity of tablet 00:00: mouth. [place] [facility] SERTraline 2020-08 Yes 300mg Take 300 Un [place] 100 mg 2-13 mg by ity of tablet 00:00: mouth. [place] [facility] SERTraline 2020-08 Yes 300mg Take 300 Un [place] 100 mg 2-13 mg by ity of tablet 00:00: mouth. [place] [facility] SERTraline 2020-08 Yes 300mg Take 300 Un [place] 100 mg 2-13 mg by ity of tablet 00:00: mouth. [place] [facility] SERTraline 2020-08 Yes 300mg Take 300 Un [place] 100 mg 2-13 mg by ity of tablet 00:00: mouth. [place] [facility] SERTraline 2020-08- No 300mg Take 300 U nivers 100 mg 2-13 06-22 mg by ity of tablet 00:00: 00:00 mouth. [place] 00 :00 [facility] Dose 2020-08 No [...] 2020-08 No Unknown 0-10 00:00: 00 benzonatate 0 Yes [id number] 100mg Take 1 [facility] 100 mg 9-02 capsule by ity of capsule 00:00: mouth 3 [place] [address] (three) Medical times Branch daily as needed for Cough. bromphenira Yes [id number] 5mL Take 5 mL [facility] mine-pseudo 9-02 by mouth 4 it y of ephedrine-D 00:00: (four[place] (BROMFED 00 times Medical DM) 2-30-10 daily as Bran ch mg/5 mL needed for syrup Congestion /Allergies or Cough. albuterol 0 Yes [id number] 2{puff} Inhale 2 [facility] 90 9-02 Puffs ity of mcg/actuati 00:00: every 4 [place] as on inhaler 00 (four) Medical hours as Branch needed for Wheezing or Shortness of Breath. ondansetron 2020-0 Yes [id number] 4mg Take 1 [facility] (ZOFRAN 9-02 tablet by ity of ODT) 4 mg 00:00: mouth [place] disintegrat 00 every 8 Medic al ing tablet (eight) Branch hours as needed for Nausea and Vomiting (N/V). benzonatate 2020-0 Yes [id number] 100mg Take 1 [facility] 100 mg 9-02 capsule by ity of capsule 00:00: mouth 3 (three) Medical times Branch daily as needed for Cough. bromphenira 0 Yes [id number] 5mL Take 5 mL [facility] mine-pseudo 9-02 by mouth 4 it y of ephedrine-D 00:00: (four[place] (BROMFED 00 times Medical DM) 2-30-10 daily as Bran ch mg/5 mL needed for syrup Congestion /Allergies or Cough. albuterol 0 Yes [id number] 2{puff} Inhale 2 [facility] 90 9-02 Puffs ity of mcg/actuati 00:00: every 4 [place] on inhaler 00 (four) Medical hours as Branch needed for Wheezing or Shortness of Breath. ondansetron 2020-0 Yes [id number] 4mg Take 1 [facility] (ZOFRAN 9-02 tablet by ity of ODT) 4 mg 00:00: mouth [place] disintegrat 00 every 8 Medic al ing tablet (eight) Branch hours as needed for Nausea and Vomiting (N/V). benzonatate 2020-0 Yes [id number] 100mg Take 1 [facility] 100 mg 9-02 capsule by ity of capsule 00:00: mouth 3 [place] 00 (three) Medical times Branch daily as needed for Cough. bromphenira 2020-0 Yes [id number] 5mL Take 5 mL [facility] mine-pseudo 9-02 by mouth 4 it y of ephedrine-D 00:00: (four) [place] (BROMFED 00 times Medical DM) 2-30-10 daily as Bran ch mg/5 mL needed for syrup Congestion /Allergies or Cough. albuterol 2020-0 Yes [id number] 2{puff} Inhale 2 [facility] 90 9-02 Puffs ity of mcg/actuati 00:00: every 4 [place] on inhaler 00 (four) Medical hours as Branch needed for Wheezing or Shortness of Breath. ondansetron 2020-0 Yes [id number] 4mg Take 1 [facility] (ZOFRAN 9-02 tablet by ity of ODT) 4 mg 00:00: mouth [place] disintegrat 00 every 8 Medic al ing tablet (eight) Branch hours as needed for Nausea and Vomiting (N/V). benzonatate 2020-0 Yes [id number] 100mg Take 1 [facility] 100 mg 9-02 capsule by ity of capsule 00:00: mouth 3 (three) Medical times Branch daily as needed for Cough. bromphenira 2020-0 Yes [id number] 5mL Take 5 mL [facility] mine-pseudo 9-02 by mouth 4 it y of ephedrine-D 00:00: (four) [place] (BROMFED 00 times Medical DM) 2-30-10 daily as Bran ch mg/5 mL needed for syrup Congestion /Allergies or Cough. albuterol Yes [id number] 2{puff} Inhale 2 [facility] 90 9-02 Puffs ity of mcg/actuati 00:00: every 4 [place] on inhaler 00 (four) Medical hours as Branch needed for Wheezing or Shortness of Breath. benzonatate 2020-0 Yes [id number] 100mg Take 1 [facility] 100 mg 9-02 capsule by ity of capsule 00:00: mouth 3 [place] (three) Medical times Branch daily as needed for Cough. bromphenira 2020-0 Yes [id number] 5mL Take 5 mL [facility] mine-pseudo 9-02 by mouth 4 it y of ephedrine-D 00:00: (four) [place] (BROMFED 00 times Medical DM) 2-30-10 daily as Bran ch mg/5 mL needed for syrup Congestion /Allergies or Cough. albuterol 0 Yes [id number] 2{puff} Inhale 2 [facility] 90 9-02 Puffs ity of mcg/actuati 00:00: every 4 [place] on inhaler 00 (four) Medical hours as Branch needed for Wheezing or Shortness of Breath. benzonatate 0 Yes [id number] 100mg Take 1 [facility] 100 mg 9-02 capsule by ity of capsule 00:00: mouth 3 [place] (three) Medical times Branch daily as needed for Cough. bromphenira 0 Yes [id number] 5mL Take 5 mL [facility] mine-pseudo 9-02 by mouth 4 it y of ephedrine-D 00:00: (four) [place] (BROMFED times Medical DM) 2-30-10 daily as Bran ch mg/5 mL needed for syrup Congestion /Allergies or Cough. albuterol 0 Yes [id number] 2{puff} Inhale 2 [facility] 90 9-02 Puffs ity of mcg/actuati 00:00: every 4 [place] on inhaler 00 (four) Medical hours as Branch needed for Wheezing or Shortness of Breath. benzonatate 0 Yes [id number] 100mg Take 1 [facility] 100 mg 9-02 capsule by ity of capsule 00:00: mouth 3 (three) Medical times Branch daily as needed for Cough. bromphenira 0 Yes [id number] 5mL Take 5 mL [facility] mine-pseudo 9-02 by mouth 4 it y of ephedrine-D 00:00: (four) [place] (BROMFED times Medical DM) 2-30-10 daily as Bran ch mg/5 mL needed for syrup Congestion /Allergies or Cough. albuterol 0 Yes [id number] 2{puff} Inhale 2 [facility] 90 9-02 Puffs ity of mcg/actuati 00:00: every 4 [place] on inhaler 00 (four) Medical hours as Branch needed for Wheezing or Shortness of Breath. benzonatate 2020-0 Yes [id number] 100mg Take 1 [facility] 100 mg 9-02 capsule by ity of capsule 00:00: mouth 3 [place] 00 (three) Medical times Branch daily as needed for Cough. bromphenira 2021-0 Yes [id number] 5mL Take 5 mL [facility] mine-pseudo 9-02 by mouth 4 it y of ephedrine-D 00:00: (four) [place] (BROMFED times Medical DM) 2-30-10 daily as Bran ch mg/5 mL needed for syrup Congestion /Allergies or Cough. albuterol Yes [id number] 2{puff} Inhale 2 [facility] 90 9-02 Puffs ity of mcg/actuati 00:00: every 4 [place] on inhaler 00 (four) Medical hours as Branch needed for Wheezing or Shortness of Breath. benzonatate Yes [id number] 100mg Take 1 [facility] 100 mg 9-02 capsule by ity of capsule 00:00: mouth 3 (three) Medical times Branch daily as needed for Cough. bromphenira 0 Yes [id number] 5mL Take 5 mL [facility] mine-pseudo 9-02 by mouth 4 it y of ephedrine-D 00:00: (four) [place] (BROMFED times Medical DM) 2-30-10 daily as Bran ch mg/5 mL needed for syrup Congestion /Allergies or Cough. albuterol Yes [id number] 2{puff} Inhale 2 [facility] 90 9-02 Puffs ity of mcg/actuati 00:00: every 4 [place] on inhaler 00 (four) Medical hours as Branch needed for Wheezing or Shortness of Breath. benzonatate 0 Yes [id number] 100mg Take 1 [facility] 100 mg 9-02 capsule by ity of capsule 00:00: mouth 3 (three) Medical times Branch daily as needed for Cough. bromphenira 0 Yes [id number] 5mL Take 5 mL [facility] mine-pseudo 9-02 by mouth 4 it y of ephedrine-D 00:00: (four) [place] (BROMFED 00 times Medical DM) 2-30-10 daily as Bran ch mg/5 mL needed for syrup Congestion /Allergies or Cough. albuterol 0 Yes [id number] 2{puff} Inhale 2 [facility] 90 9-02 Puffs ity of mcg/actuati 00:00: every 4 [place] on inhaler 00 (four) Medical hours as Branch needed for Wheezing or Shortness of Breath. benzonatate 2020-0 Yes [id number] 100mg Take 1 [facility] 100 mg 9-02 capsule by ity of capsule 00:00: mouth 3 (three) Medical times Branch daily as needed for Cough. bromphenira 2020-0 Yes [id number] 5mL Take 5 mL [facility] mine-pseudo 9-02 by mouth 4 it y of ephedrine-D 00:00: (four) [place] (BROMFED times Medical DM) 2-30-10 daily as Bran ch mg/5 mL needed for syrup Congestion /Allergies or Cough. albuterol 2020-0 Yes [id number] 2{puff} Inhale 2 [facility] 90 9-02 Puffs ity of mcg/actuati 00:00: every 4 [place] on inhaler 00 (four) Medical hours as Branch needed for Wheezing or Shortness of Breath. benzonatate 2020-0 Yes [id number] 100mg Take 1 [facility] 100 mg 9-02 capsule by ity of capsule 00:00: mouth 3 (three) Medical times Branch daily as needed for Cough. bromphenira 2020-0 Yes [id number] 5mL Take 5 mL [facility] mine-pseudo 9-02 by mouth 4 it y of ephedrine-D 00:00: (four) [place] (BROMFED times Medical DM) 2-30-10 daily as Bran ch mg/5 mL needed for syrup Congestion /Allergies or Cough. albuterol 2020-0 Yes [id number] 2{puff} Inhale 2 [facility] 90 9-02 Puffs ity of mcg/actuati 00:00: every 4 [place] on inhaler 00 (four) Medical hours as Branch needed for Wheezing or Shortness of Breath. benzonatate 2020-0 Yes [id number] 100mg Take 1 [facility] 100 mg 9-02 capsule by ity of capsule 00:00: mouth 3 (three) Medical times Branch daily as needed for Cough. bromphenira 2020-0 Yes [id number] 5mL Take 5 mL [facility] mine-pseudo 9-02 by mouth 4 it y of ephedrine-D 00:00: (four) [place] (BROMFED 00 times Medical DM) 2-30-10 daily as Bran ch mg/5 mL needed for syrup Congestion /Allergies or Cough. albuterol 0 Yes [id number] 2{puff} Inhale 2 [facility] 90 9-02 Puffs ity of mcg/actuati 00:00: every 4 [place] on inhaler 00 (four) Medical hours as Branch needed for Wheezing or Shortness of Breath. benzonatate 0 Yes [id number] 100mg Take 1 [facility] 100 mg 9-02 capsule by ity of capsule 00:00: mouth 3 [place] (three) Medical times Branch daily as needed for Cough. bromphenira 0 Yes [id number] 5mL Take 5 mL [facility] mine-pseudo 9-02 by mouth 4 it y of ephedrine-D 00:00: (four) [place] (BROMFED times Medical DM) 2-30-10 daily as Bran ch mg/5 mL needed for syrup Congestion /Allergies or Cough. albuterol 0 Yes [id number] 2{puff} Inhale 2 [facility] 90 9-02 Puffs ity of mcg/actuati 00:00: every 4 [place] on inhaler 00 (four) Medical hours as Branch needed for Wheezing or Shortness of Breath. benzonatate 0 Yes [id number] 100mg Take 1 [facility] 100 mg 9-02 capsule by ity of capsule 00:00: mouth 3 (three) Medical times Branch daily as needed for Cough. bromphenira 0 Yes [id number] 5mL Take 5 mL [facility] mine-pseudo 9-02 by mouth 4 it y of ephedrine-D 00:00: (four) [place] (BROMFED 00 times Medical DM) 2-30-10 daily as Bran ch mg/5 mL needed for syrup Congestion /Allergies or Cough. albuterol 0 Yes [id number] 2{puff} Inhale 2 [facility] 90 9-02 Puffs ity of mcg/actuati 00:00: every 4 [place] as on inhaler 00 (four) Medical hours as Branch needed for Wheezing or Shortness of Breath. benzonatate 2020-0 Yes [id number] 100mg Take 1 [facility] 100 mg 9-02 capsule by ity of capsule 00:00: mouth 3 (three) Medical times Branch daily as needed for Cough. bromphenira 2021-0 Yes [id number] 5mL Take 5 mL [facility] mine-pseudo 9-02 by mouth 4 it y of ephedrine-D 00:00: (four) [place] (BROMFED times Medical DM) 2-30-10 daily as Bran ch mg/5 mL needed for syrup Congestion /Allergies or Cough. albuterol Yes [id number] 2{puff} Inhale 2 [facility] 90 9-02 Puffs ity of mcg/actuati 00:00: every 4 [place] as on inhaler 00 (four) Medical hours as Branch needed for Wheezing or Shortness of Breath. benzonatate Yes [id number] 100mg Take 1 [facility] 100 mg 9-02 capsule by ity of capsule 00:00: mouth 3 (three) Medical times Branch daily as needed for Cough. bromphenira Yes [id number] 5mL Take 5 mL [facility] mine-pseudo 9-02 by mouth 4 it y of ephedrine-D 00:00: (four) [place] (BROMFED times Medical DM) 2-30-10 daily as Bran ch mg/5 mL needed for syrup Congestion /Allergies or Cough. albuterol Yes [id number] 2{puff} Inhale 2 [facility] 90 9-02 Puffs ity of mcg/actuati 00:00: every 4 [place] as on inhaler 00 (four) Medical hours as Branch needed for Wheezing or Shortness of Breath. benzonatate Yes [id number] 100mg Take 1 [facility] 100 mg 9-02 capsule by ity of capsule 00:00: mouth 3 (three) Medical times Branch daily as needed for Cough. bromphenira 0 Yes [id number] 5mL Take 5 mL [facility] mine-pseudo 9-02 by mouth 4 it y of ephedrine-D 00:00: (four) [place] (BROMFED 00 times Medical DM) 2-30-10 daily as Bran ch mg/5 mL needed for syrup Congestion /Allergies or Cough. albuterol Yes [id number] 2{puff} Inhale 2 [facility] 90 9-02 Puffs ity of mcg/actuati 00:00: every 4 [place] as on inhaler 00 (four) Medical hours as Branch needed for Wheezing or Shortness of Breath. benzonatate 0 Yes [id number] 100mg Take 1 [facility] 100 mg 9-02 capsule by ity of capsule 00:00: mouth 3 [place] (three) Medical times Branch daily as needed for Cough. bromphenira 0 Yes [id number] 5mL Take 5 mL [facility] mine-pseudo 9-02 by mouth 4 it y of ephedrine-D 00:00: (four) [place] (BROMFED times Medical DM) 2-30-10 daily as Bran ch mg/5 mL needed for syrup Congestion /Allergies or Cough. albuterol 0 Yes [id number] 2{puff} Inhale 2 [facility] 90 9-02 Puffs ity of mcg/actuati 00:00: every 4 [place] as on inhaler 00 (four) Medical hours as Branch needed for Wheezing or Shortness of Breath. benzonatate 0 Yes [id number] 100mg Take 1 [facility] 100 mg 9-02 capsule by ity of capsule 00:00: mouth 3 [place] (three) Medical times Branch daily as needed for Cough. bromphenira 0 Yes [id number] 5mL Take 5 mL [facility] mine-pseudo 9-02 by mouth 4 it y of ephedrine-D 00:00: (four) [place] (BROMFED times Medical DM) 2-30-10 daily as Bran ch mg/5 mL needed for syrup Congestion /Allergies or Cough. albuterol 0 Yes [id number] 2{puff} Inhale 2 [facility] 90 9-02 Puffs ity of mcg/actuati 00:00: every 4 [place] as on inhaler 00 (four) Medical hours as Branch needed for Wheezing or Shortness of Breath. benzonatate 0 Yes [id number] 100mg Take 1 [facility] 100 mg 9-02 capsule by ity of capsule 00:00: mouth 3 [place] (three) Medical times Branch daily as needed for Cough. bromphenira 0 Yes [id number] 5mL Take 5 mL [facility] mine-pseudo 9-02 by mouth 4 it y of ephedrine-D 00:00: (four) [place] (BROMFED 00 times Medical DM) 2-30-10 daily as Bran ch mg/5 mL needed for syrup Congestion /Allergies or Cough. albuterol Yes [id number] 2{puff} Inhale 2 [facility] 90 9-02 Puffs ity of mcg/actuati 00:00: every 4 [place] as on inhaler 00 (four) Medical hours as Branch needed for Wheezing or Shortness of Breath. benzonatate 0 Yes [id number] 100mg Take 1 [facility] 100 mg 9-02 capsule by ity of capsule 00:00: mouth 3 [place] 00 (three) Medical times Branch daily as needed for Cough. bromphenira 0 Yes [id number] 5mL Take 5 mL [facility] mine-pseudo 9-02 by mouth 4 it y of ephedrine-D 00:00: (four) [place] (BROMFED 00 times Medical DM) 2-30-10 daily as Bran ch mg/5 mL needed for syrup Congestion /Allergies or Cough. albuterol Yes [id number] 2{puff} Inhale 2 [facility] 90 9-02 Puffs ity of mcg/actuati 00:00: every 4 [place] as on inhaler 00 (four) Medical hours as Branch needed for Wheezing or Shortness of Breath. ondansetron Yes [id number] 4mg Take 1 [facility] (ZOFRAN 9-02 tablet by ity of ODT) 4 mg 00:00: mouth [place] disintegrat 00 every 8 Medic al ing tablet (eight) Branch hours as needed for Nausea and Vomiting (N/V). benzonatate Yes [id number] 100mg Take 1 [facility] 100 mg 9-02 capsule by ity of capsule 00:00: mouth 3 [place] 00 (three) Medical times Branch daily as needed for Cough. bromphenira 0 Yes [id number] 5mL Take 5 mL [facility] mine-pseudo 9-02 by mouth 4 it y of ephedrine-D 00:00: (four) [place] (BROMFED 00 times Medical DM) 2-30-10 daily as Bran ch mg/5 mL needed for syrup Congestion /Allergies or Cough. albuterol Yes [id number] 2{puff} Inhale 2 [facility] 90 9-02 Puffs ity of mcg/actuati 00:00: every 4 [place] as on inhaler 00 (four) Medical hours as Branch needed for Wheezing or Shortness of Breath. ondansetron 2020-0 Yes [id number] 4mg Take 1 [facility] (ZOFRAN 9-02 tablet by ity of ODT) 4 mg 00:00: mouth [place] disintegrat 00 every 8 Medic al ing tablet (eight) Branch hours as needed for Nausea and Vomiting (N/V). benzonatate 202-0 Yes [id number] 100mg Take 1 [facility] 100 mg 9-02 capsule by ity of capsule 00:00: mouth 3 [place] 00 (three) Medical times Branch daily as needed for Cough. bromphenira 2020-0 Yes [id number] 5mL Take 5 mL [facility] mine-pseudo 9-02 by mouth 4 it y of ephedrine-D 00:00: (four) [place] (BROMFED 00 times Medical DM) 2-30-10 daily as Bran ch mg/5 mL needed for syrup Congestion /Allergies or Cough. albuterol 2020-0 Yes [id number] 2{puff} Inhale 2 [facility] 90 9-02 Puffs ity of mcg/actuati 00:00: every 4 [place] as on inhaler 00 (four) Medical hours as Branch needed for Wheezing or Shortness of Breath. ondansetron 2020-0 Yes [id number] 4mg Take 1 [facility] (ZOFRAN 9-02 tablet by ity of ODT) 4 mg 00:00: mouth [place] disintegrat 00 every 8 Medic al ing tablet (eight) Branch hours as needed for Nausea and Vomiting (N/V). benzonatate 2020-0 Yes [id number] 100mg Take 1 [facility] 100 mg 9-02 capsule by ity of capsule 00:00: mouth 3 [place] 00 (three) Medical times Branch daily as needed for Cough. bromphenira 2020-0 Yes [id number] 5mL Take 5 mL [facility] mine-pseudo 9-02 by mouth 4 it y of ephedrine-D 00:00: (four) [place] [facility] (BROMFED 00 times Medical DM) 2-30-10 daily as Bran ch mg/5 mL needed for syrup Congestion /Allergies or Cough. albuterol 2020-0 Yes [id number] 2{puff} Inhale 2 [facility] 90 9-02 Puffs ity of mcg/actuati 00:00: every 4 [place] [facility] on inhaler 00 (four) Medical hours as Branch needed for Wheezing or Shortness of Breath. ondansetron 2020-0 Yes [id number] 4mg Take 1 [facility] (ZOFRAN 9-02 tablet by ity of ODT) 4 mg 00:00: mouth [place] disintegrat 00 every 8 Medic al ing tablet (eight) Branch hours as needed for Nausea and Vomiting (N/V). benzonatate 2020-0 Yes [id number] 100mg Take 1 [facility] 100 mg 9-02 capsule by ity of capsule 00:00: mouth 3 [place] 00 (three) Medical times Branch daily as needed for Cough. bromphenira 2020-0 Yes [id number] 5mL Take 5 mL [facility] mine-pseudo 9-02 by mouth 4 [facility] y of ephedrine-D 00:00: (four) [place] [facility] ([facility]OMF[facility] 00 times Medical DM) 2-30-10 daily as Bran ch mg/5 mL needed for syrup Congestion /Allergies or Cough. albuterol 2020-0 Yes [id number] 2{puff} Inhale 2 [facility] 90 9-02 Puffs ity of mcg/actuati 00:00: every 4 [place] [facility] on inhaler 00 (four) Medical hours as Branch needed for Wheezing or Shortness of Breath. ondansetron 2020-0 Yes [id number] 4mg Take 1 [facility] (ZOFRAN 9-02 tablet by ity of ODT) 4 mg 00:00: mouth [place] disintegrat 00 every 8 Medic al ing tablet (eight) Branch hours as needed for Nausea and Vomiting (N/V). benzonatate 2020-0 Yes [id number] 100mg Take 1 [facility] 100 mg 9-02 capsule by ity of capsule 00:00: mouth 3 [place] 00 (three) Medical times Branch daily as needed for Cough. bromphenira 2020-0 Yes [id number] 5mL Take 5 mL [facility] mine-pseudo 9-02 by mouth 4 [facility] y of ephedrine-D 00:00: (four) [place] [facility] (BROMFED 00 times Medical DM) 2-30-10 daily as Bran ch mg/5 mL needed for syrup Congestion /Allergies or Cough. albuterol 2020-0 Yes [id number] 2{puff} Inhale 2 [facility] 90 9-02 Puffs ity of mcg/actuati 00:00: every 4 [place] [facility] on inhaler 00 (four) Medical hours as Branch needed for Wheezing or Shortness of Breath. ondansetron 2020-0 Yes [id number] 4mg Take 1 [facility] (ZOFRAN 9-02 tablet by ity of ODT) 4 mg 00:00: mouth [place] disintegrat 00 every 8 Medic al ing tablet (eight) Branch hours as needed for Nausea and Vomiting (N/V). benzonatate 2020-0 Yes [id number] 100mg Take 1 [facility] 100 mg 9-02 capsule by ity of capsule 00:00: mouth 3 [place] 00 (three) Medical times Branch daily as needed for Cough. bromphenira 2020-0 Yes [id number] 5mL Take 5 mL [facility] mine-pseudo 9-02 by mouth 4 it y of ephedrine-D 00:00: (four) [place] [facility] (BROMFED 00 times Medical DM) 2-30-10 daily as Bran ch mg/5 mL needed for syrup Congestion /Allergies or Cough. albuterol Yes [id number] 2{puff} Inhale 2 [facility] 90 9-02 Puffs ity of mcg/actuati 00:00: every 4 [place] [facility] on inhaler 00 (four) Medical hours as Branch needed for Wheezing or Shortness of Breath. ondansetron 2020-0 Yes [id number] 4mg Take 1 [facility] (ZOFRAN 9-02 tablet by ity of ODT) 4 mg 00:00: mouth [place] disintegrat 00 every 8 Medic al ing tablet (eight) Branch hours as needed for Nausea and Vomiting (N/V). benzonatate 2020-0 Yes [id number] 100mg Take 1 [facility] 100 mg 9-02 capsule by ity of capsule 00:00: mouth 3 [place] 00 (three) Medical times Branch daily as needed for Cough. bromphenira 2020-0 Yes [id number] 5mL Take 5 mL [facility] mine-pseudo 9-02 by mouth 4 it y of ephedrine-D 00:00: (four) [place] [facility] (BROMFED 00 times Medical DM) 2-30-10 daily as Bran ch mg/5 mL needed for syrup Congestion /Allergies or Cough. albuterol 2020-0 Yes [id number] 2{puff} Inhale 2 [facility] 90 9-02 Puffs ity of mcg/actuati 00:00: every 4 [place] [facility] inhaler 00 (four) Medical hours as Branch needed for Wheezing or Shortness of Breath. ondansetron 2020-0 Yes [id number] 4mg Take 1 [facility] (ZOFRAN 9-02 tablet by ity of ODT) 4 mg 00:00: mouth [place] disintegrat 00 every 8 Medic al ing tablet (eight) Branch hours as needed for Nausea and Vomiting (N/V). benzonatate 2020-0 Yes [id number] 100mg Take 1 [facility] 100 mg 9-02 capsule by ity of capsule 00:00: mouth 3 [place] 00 (three) Medical times Branch daily as needed for Cough. bromphenira 2020-0 Yes [id number] 5mL Take 5 mL [facility] mine-pseudo 9-02 by mouth 4 it y of ephedrine-D 00:00: (four) [place] [facility] (BROMFED 00 times Medical DM) 2-30-10 daily as Bran ch mg/5 mL needed for syrup Congestion /Allergies or Cough. albuterol 2020-0 Yes [id number] 2{puff} Inhale 2 [facility] 90 9-02 Puffs ity of mcg/actuati 00:00: every 4 [place] [facility] on inhaler 00 (four) Medical hours as Branch needed for Wheezing or Shortness of Breath. ondansetron 2020-0 Yes [id number] 4mg Take 1 [facility] (ZOFRAN 9-02 tablet by ity of ODT) 4 mg 00:00: mouth [place] disintegrat 00 every 8 Medic al ing tablet (eight) Branch hours as needed for Nausea and Vomiting (N/V). benzonatate 2020-0 Yes [id number] 100mg Take 1 [facility] 100 mg 9-02 capsule by ity of capsule 00:00: mouth 3 [place] 00 (three) Medical times Branch daily as needed for Cough. bromphenira 2020-0 Yes [id number] 5mL Take 5 mL [facility] mine-pseudo 9-02 by mouth 4 it y of ephedrine-D 00:00: (four) [place] [facility] (BROMFED 00 times Medical DM) 2-30-10 daily as Bran ch mg/5 mL needed for syrup Congestion /Allergies or Cough. albuterol 2020-0 Yes [id number] 2{puff} Inhale 2 [facility] 90 9-02 Puffs ity of mcg/actuati 00:00: every 4 [place] as on inhaler 00 (four) Medical hours as Branch needed for Wheezing or Shortness of Breath. ondansetron 2020-0 Yes [id number] 4mg Take 1 [facility] (ZOFRAN 9-02 tablet by ity of ODT) 4 mg 00:00: mouth [place] disintegrat 00 every 8 Medic al ing tablet (eight) Branch hours as needed for Nausea and Vomiting (N/V). benzonatate 2020-0 Yes [id number] 100mg Take 1 [facility] 100 mg 9-02 capsule by ity of capsule 00:00: mouth 3 [place] 00 (three) Medical times Branch daily as needed for Cough. bromphenira 2020-0 Yes [id number] 5mL Take 5 mL [facility] mine-pseudo 9- by mouth 4 it y of ephedrine-D 00:00: (four) [place] [facility] (BROMFED 00 times Medical DM) 2-30-10 daily as Bran ch mg/5 mL needed for syrup Congestion /Allergies or Cough. albuterol 2020-0 Yes [id number] 2{puff} Inhale 2 [facility] 90 9-02 Puffs ity of mcg/actuati 00:00: every 4 [place] on inhaler 00 (four) Medical hours as Branch needed for Wheezing or Shortness of Breath. ondansetron 2020-0 Yes [id number] 4mg Take 1 [facility] (ZOFRAN 9-02 tablet by ity of ODT) 4 mg 00:00: mouth [place] disintegrat 00 every 8 Medic al ing tablet (eight) Branch hours as needed for Nausea and Vomiting (N/V). benzonatate 2020-0 Yes [id number] 100mg Take 1 [facility] 100 mg 9-02 capsule by ity of capsule 00:00: mouth 3 [place] 00 (three) Medical times Branch daily as needed for Cough. bromphenira 2020-0 Yes [id number] 5mL Take 5 mL [facility] mine-pseudo 9-02 by mouth 4 it y of ephedrine-D 00:00: (four) [place] [facility] ([facility]OMFED 00 times Medical DM) 2-30-10 daily as Bran ch mg/5 mL needed for syrup Congestion /Allergies or Cough. albuterol 2020-0 Yes [id number] 2{puff} Inhale 2 [facility] 90 9-02 Puffs ity of mcg/actuati 00:00: every 4 [place] on inhaler 00 (four) Medical hours as Branch needed for Wheezing or Shortness of Breath. ondansetron 2020-0 Yes [id number] 4mg Take 1 [facility] (ZOFRAN 9-02 tablet by ity of ODT) 4 mg 00:00: mouth [place] disintegrat 00 every 8 Medic al ing tablet (eight) Branch hours as needed for Nausea and Vomiting (N/V). benzonatate 2020-0 Yes [id number] 100mg Take 1 [facility] 100 mg 9-02 capsule by ity of capsule 00:00: mouth 3 [place] 00 (three) Medical times Branch daily as needed for Cough. bromphenira 2020-0 Yes [id number] 5mL Take 5 mL [facility] mine-pseudo 9-02 by mouth 4 it y of ephedrine-D 00:00: (four) [place] [facility] (BROMFED 00 times Medical DM) 2-30-10 daily as Bran ch mg/5 mL needed for syrup Congestion /Allergies or Cough. albuterol 2020-0 Yes [id number] 2{puff} Inhale 2 [facility] 90 9-02 Puffs ity of mcg/actuati 00:00: every 4 [place] on inhaler 00 (four) Medical hours as Branch needed for Wheezing or Shortness of Breath. ondansetron 2020-0 Yes [id number] 4mg Take 1 [facility] (ZOFRAN 9-02 tablet by ity of ODT) 4 mg 00:00: mouth [place] disintegrat 00 every 8 Medic al ing tablet (eight) Branch hours as needed for Nausea and Vomiting (N/V). benzonatate 2020-0 Yes [id number] 100mg Take 1 [facility] 100 mg 9-02 capsule by ity of capsule 00:00: mouth 3 [place] 00 (three) Medical times Branch daily as needed for Cough. bromphenira 2020-0 Yes [id number] 5mL Take 5 mL [facility] mine-pseudo 9-02 by mouth 4 it y of ephedrine-D 00:00: (four) [place] [facility] (BROMFED 00 times Medical DM) 2-30-10 daily as Bran ch mg/5 mL needed for syrup Congestion /Allergies or Cough. albuterol 2021-0 Yes [id number] 2{puff} Inhale 2 [facility] 90 9-02 Puffs ity of mcg/actuati 00:00: every 4 [place] [facility] on inhaler 00 (four) Medical hours as Branch needed for Wheezing or Shortness of Breath. ondansetron 0 Yes [id number] 4mg Take 1 [facility] (ZOFRAN 9-02 tablet by ity of ODT) 4 mg 00:00: mouth [place] disintegrat 00 every 8 Medic al ing tablet (eight) Branch hours as needed for Nausea and Vomiting (N/V). benzonatate 0 Yes [id number] 100mg Take 1 [facility] 100 mg 9-02 capsule by ity of capsule 00:00: mouth 3 [place] 00 (three) Medical times Branch daily as needed for Cough. bromphenira 0 Yes [id number] 5mL Take 5 mL [facility] mine-pseudo 9-02 by mouth 4 it y of ephedrine-D 00:00: (four) [place] [facility] (BROMFED 00 times Medical DM) 2-30-10 daily as Bran ch mg/5 mL needed for syrup Congestion /Allergies or Cough. albuterol 0 Yes [id number] 2{puff} Inhale 2 [facility] 90 9-02 Puffs ity of mcg/actuati 00:00: every 4 [place] [facility] on inhaler 00 (four) Medical hours as Branch needed for Wheezing or Shortness of Breath. ondansetron 0 Yes [id number] 4mg Take 1 [facility] (ZOFRAN 9-02 tablet by ity of ODT) 4 mg 00:00: mouth [place] disintegrat 00 every 8 Medic al ing tablet (eight) Branch hours as needed for Nausea and Vomiting (N/V). benzonatate 0 Yes [id number] 100mg Take 1 [facility] 100 mg 9-02 capsule by ity of capsule 00:00: mouth 3 [place] 00 (three) Medical times Branch daily as needed for Cough. bromphenira 2020-0 Yes [id number] 5mL Take 5 mL [facility] mine-pseudo 9-02 by mouth 4 it y of ephedrine-D 00:00: (four) [place] [facility] (BROMFED 00 times Medical DM) 2-30-10 daily as Bran ch mg/5 mL needed for syrup Congestion /Allergies or Cough. albuterol 2020-0 Yes [id number] 2{puff} Inhale 2 [facility] 90 9-02 Puffs ity of mcg/actuati 00:00: every 4 [place] [facility] on inhaler 00 (four) Medical hours as Branch needed for Wheezing or Shortness of Breath. ondansetron 2020-0 Yes [id number] 4mg Take 1 [facility] (ZOFRAN 9-02 tablet by ity of ODT) 4 mg 00:00: mouth [place] disintegrat 00 every 8 Medic al ing tablet (eight) Branch hours as needed for Nausea and Vomiting (N/V). benzonatate 2020-0 Yes [id number] 100mg Take 1 [facility] 100 mg 9-02 capsule by ity of capsule 00:00: mouth 3 [place] 00 (three) Medical times Branch daily as needed for Cough. bromphenira 2020-0 Yes [id number] 5mL Take 5 mL [facility] mine-pseudo 9-02 by mouth 4 it y of ephedrine-D 00:00: (four) [place] [facility] (BROMFED 00 times Medical DM) 2-30-10 daily as Bran ch mg/5 mL needed for syrup Congestion /Allergies or Cough. albuterol 2020-0 Yes [id number] 2{puff} Inhale 2 [facility] 90 9-02 Puffs ity of mcg/actuati 00:00: every 4 [place] [facility] on inhaler 00 (four) Medical hours as Branch needed for Wheezing or Shortness of Breath. ondansetron 2020-0 Yes [id number] 4mg Take 1 [facility] (ZOFRAN 9-02 tablet by ity of ODT) 4 mg 00:00: mouth [place] disintegrat 00 every 8 Medic al ing tablet (eight) Branch hours as needed for Nausea and Vomiting (N/V). benzonatate 2020-0 Yes [id number] 100mg Take 1 [facility] 100 mg 9-02 capsule by ity of capsule 00:00: mouth 3 [place] 00 (three) Medical times Branch daily as needed for Cough. bromphenira 2020-0 Yes [id number] 5mL Take 5 mL [facility] mine-pseudo 9-02 by mouth 4 it y of ephedrine-D 00:00: (four) [place] [facility] (BROMFED 00 times Medical DM) 2-30-10 daily as Bran ch mg/5 mL needed for syrup Congestion /Allergies or Cough. albuterol 2020-0 Yes [id number] 2{puff} Inhale 2 [facility] 90 9-02 Puffs ity of mcg/actuati 00:00: every 4 [place] [facility] on inhaler 00 (four) Medical hours as Branch needed for Wheezing or Shortness of Breath. ondansetron 2020-0 Yes [id number] 4mg Take 1 [facility] (ZOFRAN 9-02 tablet by ity of ODT) 4 mg 00:00: mouth [place] disintegrat 00 every 8 Medic al ing tablet (eight) Branch hours as needed for Nausea and Vomiting (N/V). benzonatate 2020-0 Yes [id number] 100mg Take 1 [facility] 100 mg 9-02 capsule by ity of capsule 00:00: mouth 3 [place] 00 (three) Medical times Branch daily as needed for Cough. bromphenira 2020-0 Yes [id number] 5mL Take 5 mL [facility] mine-pseudo 9-02 by mouth 4 it y of ephedrine-D 00:00: (four) [place] [facility] (BROMFED 00 times Medical DM) 2-30-10 daily as Bran ch mg/5 mL needed for syrup Congestion /Allergies or Cough. albuterol 2020-0 Yes [id number] 2{puff} Inhale 2 [facility] 90 9-02 Puffs ity of mcg/actuati 00:00: every 4 [place] [facility] on inhaler 00 (four) Medical hours as Branch needed for Wheezing or Shortness of Breath. ondansetron 2020-0 Yes [id number] 4mg Take 1 [facility] (ZOFRAN 9-02 tablet by ity of ODT) 4 mg 00:00: mouth [place] disintegrat 00 every 8 Medic al ing tablet (eight) Branch hours as needed for Nausea and Vomiting (N/V). benzonatate 2020-0 Yes [id number] 100mg Take 1 [facility] 100 mg 9-02 capsule by ity of capsule 00:00: mouth 3 [place] 00 (three) Medical times Branch daily as needed for Cough. bromphenira 2020-0 Yes [id number] 5mL Take 5 mL [facility] mine-pseudo 9-02 by mouth 4 it y of ephedrine-D 00:00: (four) [place] [facility] (BROMFED 00 times Medical DM) 2-30-10 daily as Bran ch mg/5 mL needed for syrup Congestion /Allergies or Cough. albuterol 2020-0 Yes [id number] 2{puff} Inhale 2 [facility] 90 9-02 Puffs ity of mcg/actuati 00:00: every 4 [place] as on inhaler 00 (four) Medical hours as Branch needed for Wheezing or Shortness of Breath. ondansetron 0 Yes [id number] 4mg Take 1 [facility] (ZOFRAN 9-02 tablet by ity of ODT) 4 mg 00:00: mouth [place] disintegrat 00 every 8 Medic al ing tablet (eight) Branch hours as needed for Nausea and Vomiting (N/V). benzonatate 2020-0 Yes [id number] 100mg Take 1 [facility] 100 mg 9-02 capsule by ity of capsule 00:00: mouth 3 [place] 00 (three) Medical times Branch daily as needed for Cough. bromphenira 0 Yes [id number] 5mL Take 5 mL [facility] mine-pseudo 9-02 by mouth 4 it y of ephedrine-D 00:00: (four) [place] [facility] (BROMFED 00 times Medical DM) 2-30-10 daily as Bran ch mg/5 mL needed for syrup Congestion /Allergies or Cough. albuterol 0 Yes [id number] 2{puff} Inhale 2 [facility] 90 9-02 Puffs ity of mcg/actuati 00:00: every 4 [place] as on inhaler 00 (four) Medical hours as Branch needed for Wheezing or Shortness of Breath. ondansetron 0 Yes [id number] 4mg Take 1 [facility] (ZOFRAN 9-02 tablet by ity of ODT) 4 mg 00:00: mouth [place] disintegrat 00 every 8 Medic al ing tablet (eight) Branch hours as needed for Nausea and Vomiting (N/V). benzonatate 2020-0 Yes [id number] 100mg Take 1 [facility] 100 mg 9-02 capsule by ity of capsule 00:00: mouth 3 [place] 00 (three) Medical times Branch daily as needed for Cough. bromphenira 0 Yes [id number] 5mL Take 5 mL [facility] mine-pseudo 9-02 by mouth 4 it y of ephedrine-D 00:00: (four) [place] [facility] (BROMFED 00 times Medical DM) 2-30-10 daily as Bran ch mg/5 mL needed for syrup Congestion /Allergies or Cough. albuterol 2020-0 Yes [id number] 2{puff} Inhale 2 [facility] 90 9-02 Puffs ity of mcg/actuati 00:00: every 4 [place] [facility] on inhaler 00 (four) Medical hours as Branch needed for Wheezing or Shortness of Breath. ondansetron 2020-0 Yes [id number] 4mg Take 1 [facility] (ZOFRAN 9-02 tablet by ity of ODT) 4 mg 00:00: mouth [place] disintegrat 00 every 8 Medic al ing tablet (eight) Branch hours as needed for Nausea and Vomiting (N/V). benzonatate 2020-0 Yes [id number] 100mg Take 1 [facility] 100 mg 9-02 capsule by ity of capsule 00:00: mouth 3 [place] 00 (three) Medical times Branch daily as needed for Cough. bromphenira 2020-0 Yes [id number] 5mL Take 5 mL [facility] mine-pseudo 9-02 by mouth 4 it y of ephedrine-D 00:00: (four) [place] [facility] (BROMFED 00 times Medical DM) 2-30-10 daily as Bran ch mg/5 mL needed for syrup Congestion /Allergies or Cough. albuterol 2020-0 Yes [id number] 2{puff} Inhale 2 [facility] 90 9-02 Puffs ity of mcg/actuati 00:00: every 4 [place] [facility] on inhaler 00 (four) Medical hours as Branch needed for Wheezing or Shortness of Breath. ondansetron 2020-0 Yes [id number] 4mg Take 1 [facility] (ZOFRAN 9-02 tablet by ity of ODT) 4 mg 00:00: mouth [place] disintegrat 00 every 8 Medic al ing tablet (eight) Branch hours as needed for Nausea and Vomiting (N/V). benzonatate 2020-0 Yes [id number] 100mg Take 1 [facility] 100 mg 9-02 capsule by ity of capsule 00:00: mouth 3 [place] 00 (three) Medical times Branch daily as needed for Cough. bromphenira 2020-0 Yes [id number] 5mL Take 5 mL [facility] mine-pseudo 9-02 by mouth 4 it y of ephedrine-D 00:00: (four) [place] [facility] (BROMFED 00 times Medical DM) 2-30-10 daily as Bran ch mg/5 mL needed for syrup Congestion /Allergies or Cough. albuterol 2020-0 Yes [id number] 2{puff} Inhale 2 [facility] 90 9-02 Puffs ity of mcg/actuati 00:00: every 4 [place] [facility] on inhaler 00 (four) Medical hours as Branch needed for Wheezing or Shortness of Breath. ondansetron 2020-0 Yes [id number] 4mg Take 1 [facility] (ZOFRAN 9-02 tablet by ity of ODT) 4 mg 00:00: mouth [place] disintegrat 00 every 8 Medic al ing tablet (eight) Branch hours as needed for Nausea and Vomiting (N/V). benzonatate 2020-0 Yes [id number] 100mg Take 1 [facility] 100 mg 9-02 capsule by ity of capsule 00:00: mouth 3 [place] 00 (three) Medical times Branch daily as needed for Cough. bromphenira 2020-0 Yes [id number] 5mL Take 5 mL [facility] mine-pseudo 9-02 by mouth 4 it y of ephedrine-D 00:00: (four) [place] [facility] (BROMFED 00 times Medical DM) 2-30-10 daily as Bran ch mg/5 mL needed for syrup Congestion /Allergies or Cough. albuterol 2020-0 Yes [id number] 2{puff} Inhale 2 [facility] 90 9-02 Puffs ity of mcg/actuati 00:00: every 4 [place] [facility] on inhaler 00 (four) Medical hours as Branch needed for Wheezing or Shortness of Breath. ondansetron 2020-0 Yes [id number] 4mg Take 1 [facility] (ZOFRAN 9-02 tablet by ity of ODT) 4 mg 00:00: mouth [place] disintegrat 00 every 8 Medic al ing tablet (eight) Branch hours as needed for Nausea and Vomiting (N/V). benzonatate 2020-0 Yes [id number] 100mg Take 1 [facility] 100 mg 9-02 capsule by ity of capsule 00:00: mouth 3 [place] 00 (three) Medical times Branch daily as needed for Cough. bromphenira 2020-0 Yes [id number] 5mL Take 5 mL [facility] mine-pseudo 9-02 by mouth 4 it y of ephedrine-D 00:00: (four) [place] [facility] (BROMFED 00 times Medical DM) 2-30-10 daily as Bran ch mg/5 mL needed for syrup Congestion /Allergies or Cough. albuterol 2020-0 Yes [id number] 2{puff} Inhale 2 [facility] 90 9-02 Puffs ity of mcg/actuati 00:00: every 4 [place] as on inhaler 00 (four) Medical hours as Branch needed for Wheezing or Shortness of Breath. ondansetron 2020-0 Yes [id number] 4mg Take 1 [facility] (ZOFRAN 9-02 tablet by ity of ODT) 4 mg 00:00: mouth [place] disintegrat 00 every 8 Medic al ing tablet (eight) Branch hours as needed for Nausea and Vomiting (N/V). benzonatate 2020-0 Yes [id number] 100mg Take 1 [facility] 100 mg 9-02 capsule by ity of capsule 00:00: mouth 3 [place] 00 (three) Medical times Branch daily as needed for Cough. bromphenira 2020-0 Yes [id number] 5mL Take 5 mL [facility] mine-pseudo 9-02 by mouth 4 it y of ephedrine-D 00:00: (four) [place] [facility] (BROMFED 00 times Medical DM) 2-30-10 daily as Bran ch mg/5 mL needed for syrup Congestion /Allergies or Cough. albuterol 0 Yes [id number] 2{puff} Inhale 2 [facility] 90 9-02 Puffs ity of mcg/actuati 00:00: every 4 [place] as on inhaler 00 (four) Medical hours as Branch needed for Wheezing or Shortness of Breath. ondansetron 2020-0 Yes [id number] 4mg Take 1 [facility] (ZOFRAN 9-02 tablet by ity of ODT) 4 mg 00:00: mouth [place] disintegrat 00 every 8 Medic al ing tablet (eight) Branch hours as needed for Nausea and Vomiting (N/V). benzonatate 2020-0 Yes [id number] 100mg Take 1 [facility] 100 mg 9-02 capsule by ity of capsule 00:00: mouth 3 [place] 00 (three) Medical times Branch daily as needed for Cough. bromphenira 2020-0 Yes [id number] 5mL Take 5 mL [facility] mine-pseudo 9-02 by mouth 4 it y of ephedrine-D 00:00: (four) [place] [facility] (BROMFED 00 times Medical DM) 2-30-10 daily as Bran ch mg/5 mL needed for syrup Congestion /Allergies or Cough. albuterol Yes [id number] 2{puff} Inhale 2 [facility] 90 9-02 Puffs ity of mcg/actuati 00:00: every 4 [place] as on inhaler 00 (four) Medical hours as Branch needed for Wheezing or Shortness of Breath. ondansetron 0 Yes [id number] 4mg Take 1 [facility] (ZOFRAN 9-02 tablet by ity of ODT) 4 mg 00:00: mouth [place] disintegrat 00 every 8 Medic al ing tablet (eight) Branch hours as needed for Nausea and Vomiting (N/V). benzonatate 0 Yes [id number] 100mg Take 1 [facility] 100 mg 9-02 capsule by ity of capsule 00:00: mouth 3 [place] 00 (three) Medical times Branch daily as needed for Cough. bromphenira 0 Yes [id number] 5mL Take 5 mL [facility] mine-pseudo 9-02 by mouth 4 it y of ephedrine-D 00:00: (four) [place] [facility] (BROMFED 00 times Medical DM) 2-30-10 daily as Bran ch mg/5 mL needed for syrup Congestion /Allergies or Cough. albuterol Yes [id number] 2{puff} Inhale 2 [facility] 90 9-02 Puffs ity of mcg/actuati 00:00: every 4 [place] as on inhaler 00 (four) Medical hours as Branch needed for Wheezing or Shortness of Breath. ondansetron 0 Yes [id number] 4mg Take 1 [facility] (ZOFRAN 9-02 tablet by ity of ODT) 4 mg 00:00: mouth [place] disintegrat 00 every 8 Medic al ing tablet (eight) Branch hours as needed for Nausea and Vomiting (N/V). benzonatate 2020-0 Yes [id number] 100mg Take 1 [facility] 100 mg 9-02 capsule by ity of capsule 00:00: mouth 3 [place] 00 (three) Medical times Branch daily as needed for Cough. bromphenira 2020-0 Yes [id number] 5mL Take 5 mL [facility] mine-pseudo 9-02 by mouth 4 it y of ephedrine-D 00:00: (four) [place] [facility] (BROMFED 00 times Medical DM) 2-30-10 daily as Bran ch mg/5 mL needed for syrup Congestion /Allergies or Cough. albuterol Yes [id number] 2{puff} Inhale 2 [facility] 90 9-02 Puffs ity of mcg/actuati 00:00: every 4 [place] as on inhaler 00 (four) Medical hours as Branch needed for Wheezing or Shortness of Breath. ondansetron Yes [id number] 4mg Take 1 [facility] (ZOFRAN 9-02 tablet by ity of ODT) 4 mg 00:00: mouth [place] disintegrat 00 every 8 Medic al ing tablet (eight) Branch hours as needed for Nausea and Vomiting (N/V). benzonatate 0 Yes [id number] 100mg Take 1 [facility] 100 mg 9-02 capsule by ity of capsule 00:00: mouth 3 [place] 00 (three) Medical times Branch daily as needed for Cough. bromphenira 0 Yes [id number] 5mL Take 5 mL [facility] mine-pseudo 9-02 by mouth 4 it y of ephedrine-D 00:00: (four) [place] [facility] (BROM[facility] 00 times Medical DM) 2-30-10 daily as Bran ch mg/5 mL needed for syrup Congestion /Allergies or Cough. albuterol Yes [id number] 2{puff} Inhale 2 [facility] 90 9-02 Puffs ity of mcg/actuati 00:00: every 4 [place] as on inhaler 00 (four) Medical hours as Branch needed for Wheezing or Shortness of Breath. ondansetron 0 Yes [id number] 4mg Take 1 [facility] (ZOFRAN 9-02 tablet by ity of ODT) 4 mg 00:00: mouth [place] disintegrat 00 every 8 Medic al ing tablet (eight) Branch hours as needed for Nausea and Vomiting (N/V). benzonatate 2020-0 Yes [id number] 100mg Take 1 [facility] 100 mg 9-02 capsule by ity of capsule 00:00: mouth 3 [place] 00 (three) Medical times Branch daily as needed for Cough. bromphenira 2020-0 Yes [id number] 5mL Take 5 mL [facility] mine-pseudo 9-02 by mouth 4 it y of ephedrine-D 00:00: (four) [place] [facility] (BROMFED 00 times Medical DM) 2-30-10 daily as Bran ch mg/5 mL needed for syrup Congestion /Allergies or Cough. albuterol 0 Yes [id number] 2{puff} Inhale 2 [facility] 90 9-02 Puffs ity of mcg/actuati 00:00: every 4 [place] as on inhaler 00 (four) Medical hours as Branch needed for Wheezing or Shortness of Breath. ondansetron 0 Yes [id number] 4mg Take 1 [facility] (ZOFRAN 9-02 tablet by ity of ODT) 4 mg 00:00: mouth [place] disintegrat 00 every 8 Medic al ing tablet (eight) Branch hours as needed for Nausea and Vomiting (N/V). benzonatate 0 Yes [id number] 100mg Take 1 [facility] 100 mg 9-02 capsule by [facility] of capsule 00:00: mouth 3 (three) Medical times Branch daily as needed for Cough. bromphenira 0 Yes [id number] 5mL Take 5 mL [facility] mine-pseudo 9-02 by mouth 4 it y of ephedrine-D 00:00: (four) [place] [facility] (BROMFED 00 times Medical DM) 2-30-10 daily as Bran ch mg/5 mL needed for syrup Congestion /Allergies or Cough. albuterol Yes [id number] 2{puff} Inhale 2 [facility] 90 9-02 Puffs ity of mcg/actuati 00:00: every 4 [place] as on inhaler 00 (four) Medical hours as Branch needed for Wheezing or Shortness of Breath. ondansetron 0 Yes [id number] 4mg Take 1 [facility] (ZOFRAN 9-02 tablet by ity of ODT) 4 mg 00:00: mouth [place] disintegrat 00 every 8 Medic al ing tablet (eight) Branch hours as needed for Nausea and Vomiting (N/V). benzonatate 2020-0 Yes [id number] 100mg Take 1 [facility] 100 mg 9-02 capsule by ity of capsule 00:00: mouth 3 [place] 00 (three) Medical times Branch daily as needed for Cough. bromphenira 2020-0 Yes [id number] 5mL Take 5 mL [facility] mine-pseudo 9-02 by mouth 4 [facility] y of ephedrine-D 00:00: (four) [place] [facility] (BROMFED 00 times Medical DM) 2-30-10 daily as Bran ch mg/5 mL needed for syrup Congestion /Allergies or Cough. albuterol 2020-0 Yes [id number] 2{puff} Inhale 2 [facility] 90 9-02 Puffs ity of mcg/actuati 00:00: every 4 [place] on inhaler 00 (four) Medical hours as Branch needed for Wheezing or Shortness of Breath. ondansetron 2020-0 Yes [id number] 4mg Take 1 [facility] (ZOFRAN 9-02 tablet by ity of ODT) 4 mg 00:00: mouth [place] disintegrat 00 every 8 Medic al ing tablet (eight) Branch hours as needed for Nausea and Vomiting (N/V). benzonatate 2020-0 Yes [id number] 100mg Take 1 [facility] 100 mg 9-02 capsule by ity of capsule 00:00: mouth 3 [place] 00 (three) Medical times Branch daily as needed for Cough. bromphenira 2020-0 Yes [id number] 5mL Take 5 mL [facility] mine-pseudo 9-02 by mouth 4 [facility] y of ephedrine-D 00:00: (four) [place] [facility] (BROMFED 00 times Medical DM) 2-30-10 daily as Bran ch mg/5 mL needed for syrup Congestion /Allergies or Cough. albuterol 2020- Yes [id number] 2{puff} Inhale 2 [facility] 90 9-02 Puffs ity of mcg/actuati 00:00: every 4 [place] [facility] on inhaler 00 (four) Medical hours as Branch needed for Wheezing or Shortness of Breath. ondansetron 2020-0 Yes [id number] 4mg Take 1 [facility] (ZOFRAN 9-02 tablet by ity of ODT) 4 mg 00:00: mouth [place] disintegrat 00 every 8 Medic al ing tablet (eight) Branch hours as needed for Nausea and Vomiting (N/V). benzonatate 2020-0 Yes [id number] 100mg Take 1 [facility] 100 mg 9-02 capsule by ity of capsule 00:00: mouth 3 [place] 00 (three) Medical times Branch daily as needed for Cough. bromphenira 2020-0 Yes [id number] 5mL Take 5 mL [facility] mine-pseudo 9-02 by mouth 4 it y of ephedrine-D 00:00: (four) [place] [facility] (BROMFED 00 times Medical DM) 2-30-10 daily as [facility] ch mg/5 mL needed for syrup Congestion /Allergies or Cough. albuterol Yes [id number] 2{puff} Inhale 2 [facility] 90 9-02 Puffs ity of mcg/actuati 00:00: every 4 [place] [facility] on inhaler 00 (four) Medical hours as Branch needed for Wheezing or Shortness of Breath. ondansetron 0 Yes [id number] 4mg Take 1 [facility] (ZOFRAN 9-02 tablet by ity of ODT) 4 mg 00:00: mouth [place] disintegrat 00 every 8 Medic al ing tablet (eight) Branch hours as needed for Nausea and Vomiting (N/V). benzonatate Yes [id number] 100mg Take 1 [facility] 100 mg 9-02 capsule by ity of capsule 00:00: mouth 3 [place] 00 (three) Medical times Branch daily as needed for Cough. bromphenira 0 Yes [id number] 5mL Take 5 mL [facility] mine-pseudo 9-02 by mouth 4 [facility] y of ephedrine-D 00:00: (four) [place] [facility] (BROMFED 00 times Medical DM) 2-30-10 daily as Bran ch mg/5 mL needed for syrup Congestion /Allergies or Cough. albuterol Yes [id number] 2{puff} Inhale 2 [facility] 90 9-02 Puffs ity of mcg/actuati 00:00: every 4 [place] [facility] inhaler 00 (four) Medical hours as Branch needed for Wheezing or Shortness of Breath. ondansetron 2020-0 Yes [id number] 4mg Take 1 [facility] (ZOFRAN 9-02 tablet by ity of ODT) 4 mg 00:00: mouth [place] disintegrat 00 every 8 Medic al ing tablet (eight) Branch hours as needed for Nausea and Vomiting (N/V). benzonatate 2020-0 Yes [id number] 100mg Take 1 [facility] 100 mg 9-02 capsule by ity of capsule 00:00: mouth 3 [place] 00 (three) Medical times Branch daily as needed for Cough. bromphenira 2020-0 Yes [id number] 5mL Take 5 mL [facility] mine-pseudo 9-02 by mouth 4 it y of ephedrine-D 00:00: (four) [place] [facility] (BROMFED 00 times Medical DM) 2-30-10 daily as Bran ch mg/5 mL needed for syrup Congestion /Allergies or Cough. albuterol 2020-0 Yes [id number] 2{puff} Inhale 2 [facility] 90 9-02 Puffs ity of mcg/actuati 00:00: every 4 [place] on inhaler 00 (four) Medical hours as Branch needed for Wheezing or Shortness of Breath. ondansetron 2020-0 Yes [id number] 4mg Take 1 [facility] (ZOFRAN 9-02 tablet by ity of ODT) 4 mg 00:00: mouth [place] disintegrat 00 every 8 Medic al ing tablet (eight) Branch hours as needed for Nausea and Vomiting (N/V). benzonatate 2020-0 Yes [id number] 100mg Take 1 [facility] 100 mg 9-02 capsule by ity of capsule 00:00: mouth 3 [place] 00 (three) Medical times Branch daily as needed for Cough. bromphenira 2020-0 Yes [id number] 5mL Take 5 mL [facility] mine-pseudo 9-02 by mouth 4 it y of ephedrine-D 00:00: (four) [place] [facility] (BROMFED 00 times Medical DM) 2-30-10 daily as Bran ch mg/5 mL needed for syrup Congestion /Allergies or Cough. albuterol 2020-0 Yes [id number] 2{puff} Inhale 2 [facility] 90 9-02 Puffs ity of mcg/actuati 00:00: every 4 [place] on inhaler 00 (four) Medical hours as Branch needed for Wheezing or Shortness of Breath. ondansetron 2020-0 Yes [id number] 4mg Take 1 [facility] (ZOFRAN 9-02 tablet by ity of ODT) 4 mg 00:00: mouth [place] disintegrat 00 every 8 Medic al ing tablet (eight) Branch hours as needed for Nausea and Vomiting (N/V). benzonatate 2020-0 Yes [id number] 100mg Take 1 [facility] 100 mg 9-02 capsule by ity of capsule 00:00: mouth 3 [place] 00 (three) Medical times Branch daily as needed for Cough. bromphenira 2020-0 Yes [id number] 5mL Take 5 mL [facility] mine-pseudo 9-02 by mouth 4 it y of ephedrine-D 00:00: (four) [place] [facility] (BROMFED 00 times Medical DM) 2-30-10 daily as Bran ch mg/5 mL needed for syrup Congestion /Allergies or Cough. albuterol 2020-0 Yes [id number] 2{puff} Inhale 2 [facility] 90 9-02 Puffs ity of mcg/actuati 00:00: every 4 [place] on inhaler 00 (four) Medical hours as Branch needed for Wheezing or Shortness of Breath. ondansetron 2020-0 Yes [id number] 4mg Take 1 [facility] (ZOFRAN 9-02 tablet by ity of ODT) 4 mg 00:00: mouth [place] disintegrat 00 every 8 Medic al ing tablet (eight) Branch hours as needed for Nausea and Vomiting (N/V). benzonatate 2020-0 Yes [id number] 100mg Take 1 [facility] 100 mg 9-02 capsule by ity of capsule 00:00: mouth 3 [place] 00 (three) Medical times Branch daily as needed for Cough. bromphenira 2020-0 Yes [id number] 5mL Take 5 mL [facility] mine-pseudo 9-02 by mouth 4 it y of ephedrine-D 00:00: (four) [place] [facility] (BROMFED 00 times Medical DM) 2-30-10 daily as Bran ch mg/5 mL needed for syrup Congestion /Allergies or Cough. albuterol 2020-0 Yes [id number] 2{puff} Inhale 2 [facility] 90 9-02 Puffs ity of mcg/actuati 00:00: every 4 [place] on inhaler 00 (four) Medical hours as Branch needed for Wheezing or Shortness of Breath. ondansetron 2020-0 Yes [id number] 4mg Take 1 [facility] (ZOFRAN 9-02 tablet by ity of ODT) 4 mg 00:00: mouth [place] disintegrat 00 every 8 Medic al ing tablet (eight) Branch hours as needed for Nausea and Vomiting (N/V). benzonatate 2020-0 Yes [id number] 100mg Take 1 [facility] 100 mg 9-02 capsule by ity of capsule 00:00: mouth 3 [place] 00 (three) Medical times Branch daily as needed for Cough. bromphenira 2020-0 Yes [id number] 5mL Take 5 mL [facility] mine-pseudo 9-02 by mouth 4 it y of ephedrine-D 00:00: (four) [place] [facility] (BROMFED 00 times Medical DM) 2-30-10 daily as Bran ch mg/5 mL needed for syrup Congestion /Allergies or Cough. albuterol 2020-0 Yes [id number] 2{puff} Inhale 2 [facility] 90 9-02 Puffs ity of mcg/actuati 00:00: every 4 [place] on inhaler 00 (four) Medical hours as Branch needed for Wheezing or Shortness of Breath. ondansetron 2020-0 Yes [id number] 4mg Take 1 [facility] (ZOFRAN 9-02 tablet by ity of ODT) 4 mg 00:00: mouth [place] disintegrat 00 every 8 Medic al ing tablet (eight) Branch hours as needed for Nausea and Vomiting (N/V). benzonatate 2020-0 Yes [id number] 100mg Take 1 [facility] 100 mg 9-02 capsule by ity of capsule 00:00: mouth 3 [place] 00 (three) Medical times Branch daily as needed for Cough. bromphenira 2020-0 Yes [id number] 5mL Take 5 mL [facility] mine-pseudo 9-02 by mouth 4 it y of ephedrine-D 00:00: (four) [place] [facility] (BROMFED 00 times Medical DM) 2-30-10 daily as Bran ch mg/5 mL needed for syrup Congestion /Allergies or Cough. albuterol 2020-0 Yes [id number] 2{puff} Inhale 2 [facility] 90 9-02 Puffs ity of mcg/actuati 00:00: every 4 [place] [facility] on inhaler 00 (four) Medical hours as Branch needed for Wheezing or Shortness of Breath. ondansetron 2020-0 Yes [id number] 4mg Take 1 [facility] (ZOFRAN 9-02 tablet by ity of ODT) 4 mg 00:00: mouth [place] disintegrat 00 every 8 Medic al ing tablet (eight) Branch hours as needed for Nausea and Vomiting (N/V). benzonatate 2020-0 Yes [id number] 100mg Take 1 [facility] 100 mg 9-02 capsule by ity of capsule 00:00: mouth 3 [place] 00 (three) Medical times Branch daily as needed for Cough. bromphenira 0 Yes [id number] 5mL Take 5 mL [facility] mine-pseudo 9-02 by mouth 4 it y of ephedrine-D 00:00: (four) [place] [facility] (BROMFED 00 times Medical DM) 2-30-10 daily as Bran ch mg/5 mL needed for syrup Congestion /Allergies or Cough. albuterol 0 Yes [id number] 2{puff} Inhale 2 [facility] 90 9-02 Puffs ity of mcg/actuati 00:00: every 4 [place] [facility] on inhaler 00 (four) Medical hours as Branch needed for Wheezing or Shortness of Breath. ondansetron 0 Yes [id number] 4mg Take 1 [facility] (ZOFRAN 9-02 tablet by ity of ODT) 4 mg 00:00: mouth [place] disintegrat 00 every 8 Medic al ing tablet (eight) Branch hours as needed for Nausea and Vomiting (N/V). benzonatate 0 Yes [id number] 100mg Take 1 [facility] 100 mg 9-02 capsule by ity of capsule 00:00: mouth 3 [place] 00 (three) Medical times Branch daily as needed for Cough. bromphenira 0 Yes [id number] 5mL Take 5 mL [facility] mine-pseudo 9-02 by mouth 4 it y of ephedrine-D 00:00: (four) [place] [facility] (BROMFED 00 times Medical DM) 2-30-10 daily as Bran ch mg/5 mL needed for syrup Congestion /Allergies or Cough. albuterol 0 Yes [id number] 2{puff} Inhale 2 [facility] 90 9-02 Puffs ity of mcg/actuati 00:00: every 4 [place] [facility] on inhaler 00 (four) Medical hours as Branch needed for Wheezing or Shortness of Breath. ondansetron 0 Yes [id number] 4mg Take 1 [facility] (ZOFRAN 9-02 tablet by ity of ODT) 4 mg 00:00: mouth [place] disintegrat 00 every 8 Medic al ing tablet (eight) Branch hours as needed for Nausea and Vomiting (N/V). benzonatate 2021-0 Yes [id number] 100mg Take 1 [facility] 100 mg 9-02 capsule by ity of capsule 00:00: mouth 3 [place] 00 (three) Medical times Branch daily as needed for Cough. bromphenira 0 Yes [id number] 5mL Take 5 mL [facility] mine-pseudo 9-02 by mouth 4 it y of ephedrine-D 00:00: (four) [place] [facility] (BROMFED 00 times Medical DM) 2-30-10 daily as Bran ch mg/5 mL needed for syrup Congestion /Allergies or Cough. albuterol Yes [id number] 2{puff} Inhale 2 [facility] 90 9-02 Puffs ity of mcg/actuati 00:00: every 4 [place] [facility] on inhaler 00 (four) Medical hours as Branch needed for Wheezing or Shortness of Breath. ondansetron Yes [id number] 4mg Take 1 [facility] (ZOFRAN 9-02 tablet by ity of ODT) 4 mg 00:00: mouth [place] disintegrat 00 every 8 Medic al ing tablet (eight) Branch hours as needed for Nausea and Vomiting (N/V). benzonatate 0 Yes [id number] 100mg Take 1 [facility] 100 mg 9-02 capsule by ity of capsule 00:00: mouth 3 [place] 00 (three) Medical times Branch daily as needed for Cough. bromphenira 0 Yes [id number] 5mL Take 5 mL [facility] mine-pseudo 9-02 by mouth 4 it y of ephedrine-D 00:00: (four) [place] [facility] (BROMFED 00 times Medical DM) 2-30-10 daily as Bran ch mg/5 mL needed for syrup Congestion /Allergies or Cough. albuterol 0 Yes [id number] 2{puff} Inhale 2 [facility] 90 9-02 Puffs ity of mcg/actuati 00:00: every 4 [place] [facility] on inhaler 00 (four) Medical hours as Branch needed for Wheezing or Shortness of Breath. ondansetron 0 Yes [id number] 4mg Take 1 [facility] (ZOFRAN 9-02 tablet by ity of ODT) 4 mg 00:00: mouth [place] disintegrat 00 every 8 Medic al ing tablet (eight) Branch hours as needed for Nausea and Vomiting (N/V). benzonatate 0 Yes [id number] 100mg Take 1 [facility] 100 mg 9-02 capsule by ity of capsule 00:00: mouth 3 [place] 00 (three) Medical times Branch daily as needed for Cough. bromphenira 2020-0 Yes [id number] 5mL Take 5 mL [facility] mine-pseudo 9-02 by mouth 4 it y of ephedrine-D 00:00: (four) [place] [facility] (BROMFED 00 times Medical DM) 2-30-10 daily as Bran ch mg/5 mL needed for syrup Congestion /Allergies or Cough. albuterol 0 Yes [id number] 2{puff} Inhale 2 [facility] 90 9-02 Puffs ity of mcg/actuati 00:00: every 4 [place] [facility] on inhaler 00 (four) Medical hours as Branch needed for Wheezing or Shortness of Breath. ondansetron 0 Yes [id number] 4mg Take 1 [facility] (ZOFRAN 9-02 tablet by ity of ODT) 4 mg 00:00: mouth [place] disintegrat 00 every 8 Medic al ing tablet (eight) Branch hours as needed for Nausea and Vomiting (N/V). benzonatate 0 Yes [id number] 100mg Take 1 [facility] 100 mg 9-02 capsule by ity of capsule 00:00: mouth 3 [place] 00 (three) Medical times Branch daily as needed for Cough. bromphenira 0 Yes [id number] 5mL Take 5 mL [facility] mine-pseudo 9-02 by mouth 4 it y of ephedrine-D 00:00: (four) [place] [facility] (BROMFED 00 times Medical DM) 2-30-10 daily as Bran ch mg/5 mL needed for syrup Congestion /Allergies or Cough. albuterol 0 Yes [id number] 2{puff} Inhale 2 [facility] 90 9-02 Puffs ity of mcg/actuati 00:00: every 4 [place] [facility] on inhaler 00 (four) Medical hours as Branch needed for Wheezing or Shortness of Breath. ondansetron 0 Yes [id number] 4mg Take 1 [facility] (ZOFRAN 9-02 tablet by ity of ODT) 4 mg 00:00: mouth [place] disintegrat 00 every 8 Medic al ing tablet (eight) Branch hours as needed for Nausea and Vomiting (N/V). benzonatate 202-0 Yes [id number] 100mg Take 1 [facility] 100 mg 9-02 capsule by ity of capsule 00:00: mouth 3 [place] 00 (three) Medical times Branch daily as needed for Cough. bromphenira 2020-0 Yes [id number] 5mL Take 5 mL [facility] mine-pseudo 9-02 by mouth 4 it y of ephedrine-D 00:00: (four) [place] [facility] (BROMFED 00 times Medical DM) 2-30-10 daily as Bran ch mg/5 mL needed for syrup Congestion /Allergies or Cough. albuterol 2020-0 Yes [id number] 2{puff} Inhale 2 [facility] 90 9-02 Puffs ity of mcg/actuati 00:00: every 4 [place] as on inhaler 00 (four) Medical hours as Branch needed for Wheezing or Shortness of Breath. ondansetron 2020-0 Yes [id number] 4mg Take 1 [facility] (ZOFRAN 9-02 tablet by ity of ODT) 4 mg 00:00: mouth [place] disintegrat 00 every 8 Medic al ing tablet (eight) Branch hours as needed for Nausea and Vomiting (N/V). benzonatate 2020-0 Yes [id number] 100mg Take 1 [facility] 100 mg 9-02 capsule by ity of capsule 00:00: mouth 3 [place] 00 (three) Medical times Branch daily as needed for Cough. bromphenira 2020-0 Yes [id number] 5mL Take 5 mL [facility] mine-pseudo 9-02 by mouth 4 it y of ephedrine-D 00:00: (four) [place] [facility] (BROMFED 00 times Medical DM) 2-30-10 daily as Bran ch mg/5 mL needed for syrup Congestion /Allergies or Cough. albuterol 2020-0 Yes [id number] 2{puff} Inhale 2 [facility] 90 9-02 Puffs ity of mcg/actuati 00:00: every 4 [place] [facility] on inhaler 00 (four) Medical hours as Branch needed for Wheezing or Shortness of Breath. ondansetron 2020-0 Yes [id number] 4mg Take 1 [facility] (ZOFRAN 9-02 tablet by ity of ODT) 4 mg 00:00: mouth [place] disintegrat 00 every 8 Medic al ing tablet (eight) Branch hours as needed for Nausea and Vomiting (N/V). benzonatate 0 Yes [id number] 100mg Take 1 [facility] 100 mg 9-02 capsule by ity of capsule 00:00: mouth 3 [place] 00 (three) Medical times Branch daily as needed for Cough. bromphenira 2020-0 Yes [id number] 5mL Take 5 mL [facility] mine-pseudo 9-02 by mouth 4 it y of ephedrine-D 00:00: (four) [place] [facility] (BROMFED 00 times Medical DM) 2-30-10 daily as Bran ch mg/5 mL needed for syrup Congestion /Allergies or Cough. albuterol 0 Yes [id number] 2{puff} Inhale 2 [facility] 90 9-02 Puffs ity of mcg/actuati 00:00: every 4 [place] [facility] on inhaler 00 (four) Medical hours as Branch needed for Wheezing or Shortness of Breath. ondansetron 0 Yes [id number] 4mg Take 1 [facility] (ZOFRAN 9-02 tablet by ity of ODT) 4 mg 00:00: mouth [place] disintegrat 00 every 8 Medic al ing tablet (eight) Branch hours as needed for Nausea and Vomiting (N/V). benzonatate 0 Yes [id number] 100mg Take 1 [facility] 100 mg 9-02 capsule by ity of capsule 00:00: mouth 3 [place] 00 (three) Medical times Branch daily as needed for Cough. bromphenira 0 Yes [id number] 5mL Take 5 mL [facility] mine-pseudo 9-02 by mouth 4 it y of ephedrine-D 00:00: (four) [place] [facility] (BROMFED 00 times Medical DM) 2-30-10 daily as Bran ch mg/5 mL needed for syrup Congestion /Allergies or Cough. albuterol 2020-0 Yes [id number] 2{puff} Inhale 2 [facility] 90 9-02 Puffs ity of mcg/actuati 00:00: every 4 [place] [facility] on inhaler 00 (four) Medical hours as Branch needed for Wheezing or Shortness of Breath. ondansetron 0 Yes [id number] 4mg Take 1 [facility] (ZOFRAN 9-02 tablet by ity of ODT) 4 mg 00:00: mouth [place] disintegrat 00 every 8 Medic al ing tablet (eight) Branch hours as needed for Nausea and Vomiting (N/V). benzonatate 2020-0 Yes [id number] 100mg Take 1 [facility] 100 mg 9-02 capsule by ity of capsule 00:00: mouth 3 [place] 00 (three) Medical times Branch daily as needed for Cough. bromphenira 2020-0 Yes [id number] 5mL Take 5 mL [facility] mine-pseudo 9-02 by mouth 4 it y of ephedrine-D 00:00: (four) [place] [facility] (BROMFED 00 times Medical DM) 2-30-10 daily as Bran ch mg/5 mL needed for syrup Congestion /Allergies or Cough. albuterol 2020-0 Yes [id number] 2{puff} Inhale 2 [facility] 90 9-02 Puffs ity of mcg/actuati 00:00: every 4 [place] [facility] on inhaler 00 (four) Medical hours as Branch needed for Wheezing or Shortness of Breath. ondansetron 0 Yes [id number] 4mg Take 1 [facility] (ZOFRAN 9-02 tablet by ity of ODT) 4 mg 00:00: mouth [place] disintegrat 00 every 8 Medic al ing tablet (eight) Branch hours as needed for Nausea and Vomiting (N/V). benzonatate 0 Yes [id number] 100mg Take 1 [facility] 100 mg 9-02 capsule by ity of capsule 00:00: mouth 3 [place] 00 (three) Medical times Branch daily as needed for Cough. bromphenira 0 Yes [id number] 5mL Take 5 mL [facility] mine-pseudo 9-02 by mouth 4 it y of ephedrine-D 00:00: (four) [place] [facility] (BROMFED 00 times Medical DM) 2-30-10 daily as Bran ch mg/5 mL needed for syrup Congestion /Allergies or Cough. albuterol 2020-0 Yes [id number] 2{puff} Inhale 2 [facility] 90 9-02 Puffs ity of mcg/actuati 00:00: every 4 [place] [facility] on inhaler 00 (four) Medical hours as Branch needed for Wheezing or Shortness of Breath. ondansetron 2020-0 Yes [id number] 4mg Take 1 [facility] (ZOFRAN 9-02 tablet by ity of ODT) 4 mg 00:00: mouth [place] disintegrat 00 every 8 Medic al ing tablet (eight) Branch hours as needed for Nausea and Vomiting (N/V). benzonatate 2020-0 Yes [id number] 100mg Take 1 [facility] 100 mg 9-02 capsule by ity of capsule 00:00: mouth 3 [place] 00 (three) Medical times Branch daily as needed for Cough. bromphenira 2020-0 Yes [id number] 5mL Take 5 mL [facility] mine-pseudo 9-02 by mouth 4 it y of ephedrine-D 00:00: (four) [place] [facility] (BROMFED 00 times Medical DM) 2-30-10 daily as Bran ch mg/5 mL needed for syrup Congestion /Allergies or Cough. albuterol 2020-0 Yes [id number] 2{puff} Inhale 2 [facility] 90 9-02 Puffs ity of mcg/actuati 00:00: every 4 [place] on inhaler 00 (four) Medical hours as Branch needed for Wheezing or Shortness of Breath. ondansetron 2020-0 Yes [id number] 4mg Take 1 [facility] (ZOFRAN 9-02 tablet by ity of ODT) 4 mg 00:00: mouth [place] disintegrat 00 every 8 Medic al ing tablet (eight) Branch hours as needed for Nausea and Vomiting (N/V). benzonatate 2020-0 Yes [id number] 100mg Take 1 [facility] 100 mg 9-02 capsule by ity of capsule 00:00: mouth 3 [place] 00 (three) Medical times Branch daily as needed for Cough. bromphenira 2020-0 Yes [id number] 5mL Take 5 mL [facility] mine-pseudo 9-02 by mouth 4 it y of ephedrine-D 00:00: (four) [place] [facility] (BROMFED 00 times Medical DM) 2-30-10 daily as Bran ch mg/5 mL needed for syrup Congestion /Allergies or Cough. albuterol 2020-0 Yes [id number] 2{puff} Inhale 2 [facility] 90 9-02 Puffs ity of mcg/actuati 00:00: every 4 [place] on inhaler 00 (four) Medical hours as Branch needed for Wheezing or Shortness of Breath. ondansetron 2020-0 Yes [id number] 4mg Take 1 [facility] (ZOFRAN 9-02 tablet by ity of ODT) 4 mg 00:00: mouth [place] disintegrat 00 every 8 Medic al ing tablet (eight) Branch hours as needed for Nausea and Vomiting (N/V). benzonatate Yes [id number] 100mg Take 1 [facility] 100 mg - capsule by ity of capsule 00:00: mouth 3 [place] 00 (three) Medical times Branch daily as needed for Cough. bromphenira Yes [id number] 5mL Take 5 mL [facility] mine-pseudo 04-09 by mouth 4 it y of ephedrine-D 00:00: (four) [place] [facility] (BROMFED 00 times Medical DM) 2-30-10 daily as Bran ch mg/5 mL needed for syrup Congestion /Allergies or Cough. albuterol Yes [id number] 2{puff} Inhale 2 [facility] 90 04-09 Puffs ity of mcg/actuati 00:00: every 4 [place] [facility] on inhaler 00 (four) Medical hours as Branch needed for Wheezing or Shortness of Breath. ondansetron Yes [id number] 4mg Take 1 [facility] (ZOFRAN 9-02 tablet by ity of ODT) 4 mg 00:00: mouth [place] disintegrat 00 every 8 Medic al ing tablet (eight) Branch hours as needed for Nausea and Vomiting (N/V). ondansetron 2022- No [id number] 4mg Take 1 [facility] (ZOFRAN 9-02 06-22 tablet by ity of ODT) 4 mg 00:00: 00:00 mouth [place] disintegrat 00 :00 every 8 Medic al ing tablet (eight) Branch hours as needed for Nausea and Vomiting (N/V). Zoloft 100 0 No 15mg mg tablet 03-28 00:00: 00 Dose 2020-0 No Unknown 03-28 00:00: 00 Zoloft 100 2020-0 No 15mg mg tablet 03-28 00:00: 00 Dose 2020-0 No Unknown 03-28 00:00: 00 Zoloft 100 2020-0 No 15mg mg tablet 01-28 00:00: 00 Dose 2020-0 No Unknown 01-28 00:00: 00 Zoloft 100 2020-0 No 15mg mg tablet 01-28 00:00: 00 Dose 1-0 No Unknown 6 00:00: 00 Dose 2021-0 No Unknown 5-04 00:00: 00 Dose 2021-0 No Unknown 5-04 00:00: 00 lisinopriL 2021-0 Yes 10mg Take 1 [facility] 10 mg 3-18 tablet by [facility] of tablet 00:00: mouth. [place] [facility] lisinopriL 2021-0 Yes 10mg Take 1 [facility] 10 mg 3-18 tablet by ity of tablet 00:00: mouth. [place] [address] [facility] lisinopriL 2021-0 Yes 10mg Take 10 mg [facility] nivers 10 mg 3-18 by mouth. ity of tablet 00:00: [place] [facility] lisinopriL 2021-0 Yes 10mg Take 10 mg [facility] nivers 10 mg 3-18 by mouth. ity of tablet 00:00: [place] [facility] lisinopriL 2021-0 Yes 10mg Take 10 mg [facility] nivers 10 mg 3-18 by mouth. ity of tablet 00:00: [place] [facility] lisinopriL 2021-0 Yes 10mg Take 10 mg [facility] nivers 10 mg 3-18 by mouth. ity of tablet 00:00: [place] [facility] lisinopriL 2021-0 Yes 10mg Take 10 mg [facility] nivers 10 mg 3-18 by mouth. ity of tablet 00:00: [place] [facility] lisinopriL 2021-0 Yes 10mg Take 10 mg [facility] nivers 10 mg 3-18 by mouth. ity of tablet 00:00: [place] [facility] lisinopriL 2021-0 Yes 10mg Take 10 mg [facility] nivers 10 mg 3-18 by mouth. ity of tablet 00:00: [place] [facility] lisinopriL 2021-0 Yes 10mg Take 10 mg [facility] nivers 10 mg 3-18 by mouth. ity of tablet 00:00: [place] [facility] lisinopriL 2021-0 Yes 10mg Take 10 mg [facility] nivers 10 mg 3-18 by mouth. ity of tablet 00:00: [place] [facility] lisinopriL 2021-0 Yes 10mg Take 10 mg [facility] nivers 10 mg 3-18 by mouth. ity of tablet 00:00: [place] [facility] lisinopriL 2021-0 Yes 10mg Take 10 mg U nivers 10 mg 3-18 by mouth. ity of tablet 00:00: [place] [facility] lisinopriL 2021-0 Yes 10mg Take 10 mg U nivers 10 mg 3-18 by mouth. ity of tablet 00:00: [place] [facility] lisinopriL 2021-0 Yes 10mg Take 10 mg U nivers 10 mg 3-18 by mouth. ity of tablet 00:00: [place] [facility] lisinopriL 2021-0 Yes 10mg Take 10 mg U nivers 10 mg 3-18 by mouth. ity of tablet 00:00: [place] [facility] lisinopriL 2021-0 Yes 10mg Take 10 mg U nivers 10 mg 3-18 by mouth. ity of tablet 00:00: [facility] lisinopriL 2021-0 Yes 10mg Take 10 mg U nivers 10 mg 3-18 by mouth. ity of tablet 00:00: [facility] lisinopriL 2021-0 Yes 10mg Take 10 mg U nivers 10 mg 3-18 by mouth. ity of tablet 00:00: [facility] lisinopriL 2021-0 Yes 10mg Take 10 mg U nivers 10 mg 3-18 by mouth. ity of tablet 00:00: [facility] lisinopriL 2021-0 Yes 10mg Take 10 mg U nivers 10 mg 3-18 by mouth. ity of tablet 00:00: [facility] lisinopriL 2021-0 Yes 10mg Take 10 mg U nivers 10 mg 3-18 by mouth. ity of tablet 00:00: [facility] lisinopriL 2021-0 Yes 10mg Take 10 mg U nivers 10 mg 3-18 by mouth. ity of tablet 00:00: [facility] lisinopriL 2021-0 Yes 10mg Take 10 mg U nivers 10 mg 3-18 by mouth. ity of tablet 00:00: [facility] lisinopriL 2021-0 Yes 10mg Take 10 mg U nivers 10 mg 3-18 by mouth. ity of tablet 00:00: [facility] lisinopriL 2021-0 Yes 10mg Take 10 mg U nivers 10 mg 3-18 by mouth. ity of tablet 00:00: [facility] lisinopriL 2021-0 Yes 10mg Take 10 mg U nivers 10 mg 3-18 by mouth. ity of tablet 00:00: [facility] lisinopriL 2021-0 Yes 10mg Take 10 mg U nivers 10 mg 3-18 by mouth. ity of tablet 00:00: [facility] lisinopriL 2021-0 Yes 10mg Take 10 mg U nivers 10 mg 3-18 by mouth. ity of tablet 00:00: [facility] lisinopriL 2021-0 Yes 10mg Take 10 mg U nivers 10 mg 3-18 by mouth. ity of tablet 00:00: [facility] lisinopriL 2021-0 Yes 10mg Take 10 mg U nivers 10 mg 3-18 by mouth. ity of tablet 00:00: [facility] lisinopriL 2021-0 Yes 10mg Take 10 mg U nivers 10 mg 3-18 by mouth. ity of tablet 00:00: [facility] lisinopriL 2021-0 Yes 10mg Take 10 mg U nivers 10 mg 3-18 by mouth. ity of tablet 00:00: [facility] lisinopriL 2021-0 Yes 10mg Take 10 mg U nivers 10 mg 3-18 by mouth. ity of tablet 00:00: [facility] lisinopriL 2021-0 Yes 10mg Take 10 mg U nivers 10 mg 3-18 by mouth. ity of tablet 00:00: [facility] lisinopriL 2021-0 Yes 10mg Take 10 mg U nivers 10 mg 3-18 by mouth. ity of tablet 00:00: [facility] lisinopriL 2021-0 Yes 10mg Take 10 mg U nivers 10 mg 3-18 by mouth. ity of tablet 00:00: [facility] lisinopriL 2021-0 Yes 10mg Take 10 mg U nivers 10 mg 3-18 by mouth. ity of tablet 00:00: [facility] lisinopriL 2021-0 Yes 10mg Take 10 mg U nivers 10 mg 3-18 by mouth. ity of tablet 00:00: [facility] lisinopriL 2021-0 Yes 10mg Take 10 mg U nivers 10 mg 3-18 by mouth. ity of tablet 00:00: [facility] lisinopriL 2021-0 Yes 10mg Take 10 mg U nivers 10 mg 3-18 by mouth. ity of tablet 00:00: [facility] lisinopriL 2021-0 Yes 10mg Take 10 mg U nivers 10 mg 3-18 by mouth. ity of tablet 00:00: [facility] lisinopriL 2021-0 Yes 10mg Take 10 mg U nivers 10 mg 3-18 by mouth. ity of tablet 00:00: [facility] lisinopriL 2021-0 Yes 10mg Take 10 mg U nivers 10 mg 3-18 by mouth. ity of tablet 00:00: [facility] lisinopriL 2021-0 Yes 10mg Take 10 mg U nivers 10 mg 3-18 by mouth. ity of tablet 00:00: [facility] lisinopriL 2021-0 Yes 10mg Take 10 mg U nivers 10 mg 3-18 by mouth. ity of tablet 00:00: [facility] lisinopriL 2021-0 Yes 10mg Take 10 mg U nivers 10 mg 3-18 by mouth. ity of tablet 00:00: [facility] lisinopriL 2021-0 Yes 10mg Take 10 mg U nivers 10 mg 3-18 by mouth. ity of tablet 00:00: [facility] lisinopriL 2021-0 Yes 10mg Take 10 mg U nivers 10 mg 3-18 by mouth. ity of tablet 00:00: [facility] lisinopriL 2021-0 Yes 10mg Take 10 mg U nivers 10 mg 3-18 by mouth. ity of tablet 00:00: [facility] lisinopriL 2021-0 Yes 10mg Take 10 mg U nivers 10 mg 3-18 by mouth. ity of tablet 00:00: [facility] lisinopriL 2021-0 Yes 10mg Take 10 mg U nivers 10 mg 3-18 by mouth. ity of tablet 00:00: [facility] lisinopriL 2021-0 Yes 10mg Take 10 mg U nivers 10 mg 3-18 by mouth. ity of tablet 00:00: [place] [facility] lisinopriL 202-0 Yes 10mg Take 10 mg U nivers 10 mg 3-18 by mouth. ity of tablet 00:00: [place] [facility] lisinopriL 2020-0 Yes 10mg Take 10 mg U nivers 10 mg 3-18 by mouth. ity of tablet 00:00: [place] [facility] lisinopriL 202-0 Yes 10mg Take 10 mg U nivers 10 mg 3-18 by mouth. ity of tablet 00:00: [place] [facility] lisinopriL 202-0 Yes 10mg Take 10 mg U nivers 10 mg 3-18 by mouth. ity of tablet 00:00: [address] lisinopriL 2020-0 Yes 10mg Take 10 mg U nivers 10 mg 3-18 by mouth. ity of tablet 00:00: [address] lisinopriL 2020-0 Yes 10mg Take 10 mg U nivers 10 mg 3-18 by mouth. ity of tablet 00:00: [place] [facility] lisinopriL 2020-0 Yes 10mg Take 10 mg U nivers 10 mg 3-18 by mouth. ity of tablet 00:00: [address] lisinopriL 202-0 2023- No 10mg Take 1 Univ ers 10 mg 3-18 06-21 tablet by ity of tablet 00:00: 00:00 mouth. [place] 00 :00 [facility] Dose 2021-0 No Unknown 1-21 00:00: 00 Dose 2020-0 [...] 15mg mg tablet 0-23 00:00: 00 Dose 2020-1 No Unknown [...] 50 mg 1-14 tablet 00:00: 00 Zoloft 2019-1 No 1mg mg tablet 1-14 00:00: [...] No 1mg mg tablet 2-18 00:00: 00 Lilianalifneva 2 2018-1 No 1mg mg tablet 0-15 [...] Immunizations Ordered Filled Immunization Date Status Comments [facility] e Immunization Name Name SARS-COV-2 COVID-19 2020-12-06 Completed Unive rsity of VACCINE - (MODERNA) 00:00:00 [facility] SARS-COV-2 COVID-19 2020-12-06 Completed Unive rsity of VACCINE - (MODERNA) 00:00:00 [facility] SARS-COV-2 COVID-19 2020-12-06 Completed Unive rsity of VACCINE - (MODERNA) 00:00:00 [facility] SARS-COV-2 COVID-19 2020-12-06 Completed Unive rsity of VACCINE - (MODERNA) 00:00:00 [facility] SARS-COV-2 COVID-19 2020-12-06 Completed Unive rsity of VACCINE - (MODERNA) 00:00:00 [facility] SARS-COV-2 COVID-19 2020-12-06 Completed Unive rsity of VACCINE - (MODERNA) 00:00:00 [facility] SARS-COV-2 COVID-19 2020-12-06 Completed Unive rsity of VACCINE - (MODERNA) 00:00:00 [facility] SARS-COV-2 COVID-19 2020-12-06 Completed Unive rsity of VACCINE - (MODERNA) 00:00:00 [facility] SARS-COV-2 COVID-19 2020-12-06 Completed Unive rsity of VACCINE - (MODERNA) 00:00:00 [facility] SARS-COV-2 COVID-19 2020-12-06 Completed Unive rsity of VACCINE - (MODERNA) 00:00:00 [facility] SARS-COV-2 COVID-19 2020-12-06 Completed Unive rsity of VACCINE - (MODERNA) 00:00:00 [facility] SARS-COV-2 COVID-19 2020-12-06 Completed Unive rsity of VACCINE - (MODERNA) 00:00:00 [facility] SARS-COV-2 COVID-19 2020-12-06 Completed Unive rsity of VACCINE - (MODERNA) 00:00:00 [facility] SARS-COV-2 COVID-19 2020-12-06 Completed Unive rsity of VACCINE - (MODERNA) 00:00:00 [facility] SARS-COV-2 COVID-19 2020-12-06 Completed Unive rsity of VACCINE - (MODERNA) 00:00:00 [facility] SARS-COV-2 COVID-19 2020-12-06 Completed Unive rsity of VACCINE - (MODERNA) 00:00:00 [facility] SARS-COV-2 COVID-19 2020-12-06 Completed Unive rsity of VACCINE - (MODERNA) 00:00:00 [facility] SARS-COV-2 COVID-19 2020-12-06 Completed Unive rsity of VACCINE - (MODERNA) 00:00:00 [facility] SARS-COV-2 COVID-19 2020-12-06 Completed Unive rsity of VACCINE - (MODERNA) 00:00:00 [facility] SARS-COV-2 COVID-19 2020-12-06 Completed Unive rsity of VACCINE - (MODERNA) 00:00:00 [facility] SARS-COV-2 COVID-19 2020-12-06 Completed Unive rsity of VACCINE - (MODERNA) 00:00:00 [facility] SARS-COV-2 COVID-19 2020-12-06 Completed Unive rsity of VACCINE - (MODERNA) 00:00:00 [facility] SARS-COV-2 COVID-19 2020-12-06 Completed Unive rsity of VACCINE - (MODERNA) 00:00:00 [facility] SARS-COV-2 COVID-19 2020-12-06 Completed Unive rsity of VACCINE - (MODERNA) 00:00:00 [facility] SARS-COV-2 COVID-19 2020-12-06 Completed Unive rsity of VACCINE - (MODERNA) 00:00:00 [facility] SARS-COV-2 COVID-19 2020-12-06 Completed Unive rsity of VACCINE - (MODERNA) 00:00:00 [facility] SARS-COV-2 COVID-19 2020-12-06 Completed Unive rsity of VACCINE - (MODERNA) 00:00:00 [facility] SARS-COV-2 COVID-19 2020-12-06 Completed Unive rsity of VACCINE - (MODERNA) 00:00:00 [facility] SARS-COV-2 COVID-19 2020-12-06 Completed Unive rsity of VACCINE - (MODERNA) 00:00:00 [facility] SARS-COV-2 COVID-19 2020-12-06 Completed Unive rsity of VACCINE - (MODERNA) 00:00:00 [facility] SARS-COV-2 COVID-19 2020-12-06 Completed Unive rsity of VACCINE - (MODERNA) 00:00:00 [facility] SARS-COV-2 COVID-19 2020-12-06 Completed Unive rsity of VACCINE - (MODERNA) 00:00:00 [facility] SARS-COV-2 COVID-19 2020-12-06 Completed Unive rsity of VACCINE - (MODERNA) 00:00:00 [facility] SARS-COV-2 COVID-19 2020-12-06 Completed Unive rsity of VACCINE - (MODERNA) 00:00:00 [facility] SARS-COV-2 COVID-19 2020-12-06 Completed Unive rsity of VACCINE - (MODERNA) 00:00:00 [facility] SARS-COV-2 COVID-19 2020-12-06 Completed Unive rsity of VACCINE - (MODERNA) 00:00:00 [facility] SARS-COV-2 COVID-19 2020-12-06 Completed Unive rsity of VACCINE - (MODERNA) 00:00:00 [facility] SARS-COV-2 COVID-19 2020-12-06 Completed Unive rsity of VACCINE - (MODERNA) 00:00:00 [facility] SARS-COV-2 COVID-19 2020-12-06 Completed Unive rsity of VACCINE - (MODERNA) 00:00:00 [facility] SARS-COV-2 COVID-19 2020-12-06 Completed Unive rsity of VACCINE - (MODERNA) 00:00:00 [facility] SARS-COV-2 COVID-19 2020-12-06 Completed Unive rsity of VACCINE - (MODERNA) 00:00:00 [facility] SARS-COV-2 COVID-19 2020-12-06 Completed Unive rsity of VACCINE - (MODERNA) 00:00:00 [facility] SARS-COV-2 COVID-19 2020-12-06 Completed Unive rsity of VACCINE - (MODERNA) 00:00:00 [facility] SARS-COV-2 COVID-19 2020-12-06 Completed Unive rsity of VACCINE - (MODERNA) 00:00:00 [facility] SARS-COV-2 COVID-19 2020-12-06 Completed Unive rsity of VACCINE - (MODERNA) 00:00:00 [facility] SARS-COV-2 COVID-19 2020-12-06 Completed Unive rsity of VACCINE - (MODERNA) 00:00:00 [facility] SARS-COV-2 COVID-19 2020-12-06 Completed Unive rsity of VACCINE - (MODERNA) 00:00:00 [facility] SARS-COV-2 COVID-19 2020-12-06 Completed Unive rsity of VACCINE - (MODERNA) 00:00:00 [facility] SARS-COV-2 COVID-19 2020-12-06 Completed Unive rsity of VACCINE - (MODERNA) 00:00:00 [facility] SARS-COV-2 COVID-19 2020-12-06 Completed Unive rsity of VACCINE - (MODERNA) 00:00:00 [facility] SARS-COV-2 COVID-19 2020-12-06 Completed Unive rsity of VACCINE - (MODERNA) 00:00:00 [facility] SARS-COV-2 COVID-19 2020-12-06 Completed Unive rsity of VACCINE - (MODERNA) 00:00:00 [facility] Influenza, 2018-07-25 Completed seasonal, inj 00:00:00 Influenza, 2018-07-25 Completed seasonal, inj 00:00:00 Tdap 2017-04-26 Completed 00:00:00 Influenza, 2017-04-26 Completed seasonal, inj 00:00:00 Tdap 2017-04-26 Completed 00:00:00 Influenza, 2017-04-26 Completed seasonal, inj 00:00:00 Vital Signs Vital Name Observation Time Observation Value Comments Source Systolic blood 2023-02-10 18:46:00 99 mm[Hg] Univer sity of pressure [facility] Diastolic blood 2023-02-10 18:46:00 62 mm[Hg] Unive rsity of [facility] Heart rate 2023-02-10 18:46:00 111 /min [facility] Body temperature 2023-02-10 18:46:00 36.17 [place] [facility] height 2023-02-10 18:46:00 152.4 cm [facility] Body weight 2023-02-10 18:46:00 72.576 kg [facility] BMI 2023-02-10 18:46:00 31.25 kg/m2 [facility] Systolic blood 2023-02-03 17:57:00 105 mm[Hg] Univer sity of pressure [facility] Diastolic blood 2023-02-03 17:57:00 73 mm[Hg] Unive rsity of pressure [facility] Heart rate 2023-02-03 17:57:00 94 /min [facility] Body temperature 2023-02-03 17:57:00 36.28 [place] weight 2023-02-03 17:57:00 72.576 kg [facility] BMI 2023-02-03 17:57:00 31.25 kg/m2 [facility] Systolic blood 2023-01-30 17:00:00 105 mm[Hg] Univer sity of pressure [facility] Diastolic blood 2023-01-30 17:00:00 55 mm[Hg] Unive rsity of pressure [facility] Heart rate 2023-01-30 17:00:00 84 /min [facility] Body temperature 2023-01-30 17:00:00 36.78 Rivka Univ ersity of [facility] Respiratory rate 2023-01-30 17:00:00 20 /min Univ ers[facility] of [facility] Oxygen saturation in 2023-01-30 17:00:00 98 /min [facility] of [facility] blood by [place] [employer] [facility] Body weight 2023-01-27 13:00:00 73 kg [facility] BMI 2023-01-27 13:00:00 31.43 kg/m2 [facility] Systolic blood 2023-01-26 12:00:00 109 mm[Hg] Univer sity of pressure [facility] Diastolic blood 2023-01-26 12:00:00 65 mm[Hg] Unive rsity of pressure [facility] Heart rate 2023-01-26 12:00:00 90 /min [facility] Body temperature 2023-01-26 12:00:00 36.56 Rivka [facility] ers[facility] Respiratory rate 2023-01-26 12:00:00 17 /min Univ ersity of [facility] Oxygen saturation in 2023-01-26 12:00:00 97 /min [facility] blood by [place] [employer] Body height 2023-01-20 11:53:00 152.4 cm [facility] Body weight 2023-01-20 11:53:00 73.029 kg [facility] BMI 2023-01-20 11:53:00 31.44 kg/m2 [facility] Systolic blood 2023-01-17 10:19:00 126 mm[Hg] Univer sity of pressure [facility] Diastolic blood 2023-01-17 10:19:00 79 mm[Hg] Unive rsity of pressure [facility] Heart rate 2023-01-17 10:19:00 81 /min [facility] Body temperature 2023-01-17 10:19:00 37 Rivka Univ ersity of [facility] Respiratory rate 2023-01-17 10:19:00 16 /min Univ ersity of [facility] Body height 2023-01-17 10:19:00 152.4 cm [facility] Body weight 2023-01-17 10:19:00 73.2 kg [facility] BMI 2023-01-17 10:19:00 31.52 kg/m2 Universi ty of [facility] Oxygen saturation in 2023-01-17 10:19:00 93 /min University of Arterial blood by [facility] Pulse oximetry Branch Systolic blood 2022-10-21 13:21:00 109 mm[Hg] [facility]iver [facility]ity of [facility] Diastolic blood 2022-10-21 13:21:00 77 mm[Hg] Unive rsity of pressure [facility] Heart rate 2022-10-21 13:21:00 84 /min [facility] Body temperature 2022-10-21 13:21:00 36.11 Rivka Univ ers[facility] Body height 2022-10-21 13:21:00 152.4 cm [facility] Body weight 2022-10-21 13:21:00 78.971 kg [facility] BMI 2022-10-21 13:21:00 34.00 kg/m2 [facility] Systolic blood 2022-07-22 22:32:00 120 mm[Hg] Univer sity of pressure [facility] Diastolic blood 2022-07-22 22:32:00 86 mm[Hg] Unive rsity of pressure [facility] Heart rate 2022-07-22 22:32:00 125 /min [facility] Body temperature 2022-07-22 22:32:00 36.17 Riv[place] [facility] Body height 2022-07-22 22:32:00 152.4 cm [facility] Body weight 2022-07-22 22:32:00 78.926 kg [facility] BMI 2022-07-22 22:32:00 33.98 kg/m2 [facility] BP Systolic 2022-03-01 14:51:00 107 mm[Hg] BP [...] Date / Time Performing Clinician Source Performed EXTERNAL PROVIDER 2023-02-11 05:01:00 Doctor Unassigned, No [facility] RECORDS Name Medical Branch XR LUMBAR SPINE 2 VW 2023-01-27 10:11:00 [facility] SP[facility] THORACIC 2 VW 2023-01-27 10:11:00 [facility] C-REACTIVE PROTEIN 2023-01-27 09:06:00 [facility] SEDIMENTATION RATE 2023-01-27 09:06:00 Onofre Shafer [facility] CBC WITH DIFF 2023-01-27 09:06:[address] [facility] [place] [place] LUMBAR SPINE WO 2023-01-23 16:22:14 Coleman Wolfe [facility] THORACIC SPINE WO 2023-01-23 16:22:14 Coleman Wolfe [facility] ity [facility] BASIC METABOLIC PANEL 2023-01-23 11:36:00 Coleman Wolfe [facility] (NA, K, CL, CO2, Medical Branch GLUCOSE, BUN, CREATININE, CA) CBC WITHOUT DIFF 2023-01-23 11:36:00 Coleman Wolfe [facility] XR SCOLIOSIS SURVEY 2 VW 2023-01-23 02:10:00 Felipe Herzog [facility] DUPLEX VENOUS LEG RIGHT 2023-01-21 13:32:00 [place] [facility] - BY VASCULAR LAB [facility] CBC WITHOUT DIFF 2023-01-20 21:24:00 Russel Albright [facility] D-DIMER 2023-01-20 21:24:00 [place] [facility] PHOSPHORUS 2023-01-19 11:44:00 Yamil [facility] MAGNESIUM 2023-01-19 11:44:00 Yamil [facility] BASIC METABOLIC PANEL 2023-01-19 11:44:00 Yamil [facility] (NA, K, CL, CO2, Medical Branch GLUCOSE, BUN, CREATININE, CA) CBC WITH DIFF 2023-01-19 11:44:00 Yamil [facility] PHOSPHORUS 2023-01-18 10:36:00 [facility] MAGNESIUM 2023-01-18 10:36:00 [facility] BASIC METABOLIC PANEL 2023-01-18 10:36:00 [facility] (NA, K, CL, CO2, Medical Branch GLUCOSE, BUN, CREATININE, CA) CBC WITH DIFF 2023-01-18 10:36:00 Quinton Ayala [facility] PHOSPHORUS 2023-01-18 10:36:00 [facility] MAGNESIUM 2023-01-18 10:36:00 [facility] BASIC METABOLIC PANEL 2023-01-18 10:36:00 [facility] (NA, K, CL, CO2, Medical Branch GLUCOSE, BUN, CREATININE, CA) CBC WITH DIFF 2023-01-18 10:36:00 Quinton Ayala [facility] XR CHEST 1 VW 2023-01-18 03:45:00 Vu, [facility] XR CHEST 1 VW 2023-01-18 03:45:00 Vu, [facility] XR KUB 2023-01-18 03:45:00 Vu, [facility] BASIC METABOLIC PANEL 2023-01-18 03:23:00 Vu, [facility] (NA, K, CL, CO2, Medical Branch GLUCOSE, BUN, CREATININE, CA) CBC WITHOUT DIFF 2023-01-18 03:23:00 Vu, [facility] BASIC METABOLIC PANEL 2023-01-18 03:23:00 Vu, [facility] (NA, K, CL, CO2, Medical Branch GLUCOSE, BUN, CREATININE, CA) CBC WITHOUT DIFF 2023-01-18 03:23:00 Jose, [facility] PREPARE PACKED RBC 2023-01-18 02:43:04 Maritza [facility] PREPARE PACKED RBC 2023-01-18 02:43:04 Maritza [facility] TRANSFUSE PACKED RBC 2023-01-18 01:11:00 Jeffy Delcid [facility] TRANSFUSE PACKED RBC 2023-01-18 01:11:00 Jeffy Delcid [facility] ABG+COOX+NA+K+GLU+CA2+ 2023-01-18 01:00:00 Felipe Herzog [facility] ABG+COOX+NA+K+GLU+CA2+ 2023-01-18 01:00:00 Felipe Herzog [facility] XR LUMBAR SPINE 1 VW 2023-01-18 00:53:00 Felipe Herzog [facility] XR SPINE THORACIC 2 VW 2023-01-18 00:53:00 Felipe Herzog [facility] [place] TIME OR 2023-01-18 00:50:39 Felipe Herzog [facility] (NON-REPORTABLE) Medical Branch [place] TIME OR 2023-01-18 00:50:39 Felipe Herzog [facility] (NON-REPORTABLE) Medical Branch ABG+COOX+NA+K+GLU+CA2+ 2023-01-18 00:04:00 Felipe Herzog [facility]vers[facility] ABG+COOX+NA+K+GLU+CA2+ 2023-01-18 00:04:00 Felipe Herzog Un [facility]vers[facility] FL TIME OR 2023-01-17 23:14:37 Felipe Herzog [facility] (NON-REPORTABLE) Medical Branch FL TIME OR 2023-01-17 23:14:37 Mino Felipe [facility] (NON-REPORTABLE) [facility] TRANSFUSE PACKED RBC 2023-01-17 23:07:00 Jeffy Delcid [facility] TRANSFUSE PACKED RBC 2023-01-17 23:07:00 Jeffy Delcid [facility] ABG+COOX+NA+K+GLU+CA2+ 2023-01-17 22:58:00 [facility] ABG+COOX+NA+K+GLU+CA2+ 2023-01-17 22:58:00 [facility] PREPARE [facility]ACK[facility] RBC 2023-01-17 22:41:13 Mansi Salas [facility] PREPARE PACKED RBC 2023-01-17 22:41:13 [facility] ABG+COOX+NA+K+GLU+CA2+ 2023-01-17 21:33:00 Felipe Herzog Un iversity [facility] ABG+COOX+NA+K+GLU+CA2+ 2023-01-17 21:33:00 [facility] CBC WITHOUT DIFF 2023-01-17 21:25:00 Felipe Herzog [facility] CBC WITHOUT DIFF 2023-01-17 21:25:00 Alijanipour, Felpie [facility] Medical Branch ABG+COOX+NA+K+GLU+CA2+ 2023-01-17 21:09:00 Felipe Herzog Un [facility]versity of [facility] ABG+COOX+NA+K+GLU+CA2+ 2023-01-17 21:09:00 Mino Felipe [facility] of [facility] ABG+COOX+NA+K+GLU+CA2+ 2023-01-17 20:30:00 Felipe Herzog [facility] [place] [facility] ABG+COOX+NA+K+GLU+CA2+ 2023-01-17 20:30:00 Felipe Herzog Un iversity of [facility] ABG+COOX+NA+K+GLU+CA2+ 2023-01-17 18:47:00 Felipe Herzog Un [facility]versity of [facility] ABG+COOX+NA+K+GLU+CA2+ 2023-01-17 18:47:00 Felipe Herzog Un iversity of [facility] ABG+COOX+NA+K+GLU+CA2+ 2023-01-17 16:48:00 Felipe Herzog Un [facility]versity of [facility] ABG+COOX+NA+K+GLU+CA2+ 2023-01-17 16:48:00 Felipe Herzog Un [facility]versity of [facility] ABG+COOX+NA+K+GLU+CA2+ 2023-01-17 15:27:00 Felipe Herzog Un [facility]ity of [facility] ABG+COOX+NA+K+GLU+CA2+ 2023-01-17 15:27:00 Felipe Herzog [facility] LUMBAR DECOMPRESSION 2023-01-17 12:03:00 Mino [facility] WITH Medical Branch FUSION/INSTRUMENTATION LUMBAR DECOMPRESSION 2023-01-17 12:03:00 Felipe Herzog [facility] WITH Medical Branch FUSION/INSTRUMENTATION HB ABO GROUPING 2023-01-17 10:45:00 Apple Desai [facility] [place] [facility] HB ABO GROUPING 2023-01-17 10:45:00 Apple Desai [facility] [place] [facility] ASSIGNMENT OF BENEFITS 2023-01-17 10:12:57 Doctor Unassigned, No [facility] Name Medical Branch AUTHORIZATION FOR 2022-11-10 05:01:00 Doctor Unassigned, No Univ ersity [facility] RELEASE OF PHI Name Medical Branch XR CHEST 2 2022-10-28 21:18:07 Roberto Singh Edwards o f [facility] XR SCOLIOSIS SURVEY 2 2022-10-21 14:07:44 Felipe Herzog [facility] EXTERNAL PROVIDER 2022-10-19 05:01:00 Doctor Unassigned, No [facility] REFERRAL- 2022-09-08 06:01:00 Doctor Unassigned, No [facility]/RESPONSE Name Medical Branch REFERRAL- 2022-04-22 05:01:00 Doctor Unassigned, No [facility] REQUEST/RESPONSE Name Medical Branch ASSIGNMENT OF BENEFITS 2022-03-23 19:23:08 Doctor Unassigned, No [facility] Medical Branch CONSENT/REFUSAL FOR 2022-03-23 19:22:45 Doctor Unassigned, No [facility]AT[facility] Name Medical Branch EXTERNAL PROVIDER 2022-03-11 05:01:00 Doctor Unassigned, No Univ [facility] RECORDS Name Medical Branch MR THORACIC SPINE WO 2022-03-10 22:08:00 [facility] Medical Branch MR LUMBAR SPINE WO 2022-03-10 22:03:42 [place] [facility] CONTRAST Medical Branch MR CERVICAL SPINE WO 2022-03-10 21:26:19 [place] [facility] Medical Branch DEXA AXIAL (HIP AND 2022-03-10 20:09:14 [facility] SPINE) Medical Branch DISCLOSURE AND CONSENT, 2022-02-26 05:01:00 Doctor Unassigned, N o [facility] MEDICAL AND SURGICAL Name Medical Bra [facility] PROCEDURES Plan of Care Planned Activity Planned Date Details Comments Source Goal Plan of Care Note [code = 81533-2] Goal Plan of Care Note [code = 85786-1] Goal Plan of Care Note [code = 33660-1] Goal Plan of Care Note [code = 44195-1] Goal Plan of Care Note [code = 09919-4] Goal Plan of Care Note [code = 53214-5] Goal Plan of Care Note [code = 79582-1] Goal Plan of Care Note [code = 02160-7] Goal Plan of Care Note [code = 88346-6] Goal Plan of Care Note [code = 48406-8] Goal Plan of Care Note [code = 84832-3] Goal Plan of Care Note [code = 65516-1] Goal Plan of Care Note [code = 03539-6] Goal Plan of Care Note [code = 56042-6] Goal Plan of Care Note [code = 80938-2] Goal Plan of Care Note [code = 99055-1] Goal Plan of Care Note [code = 85876-9] Goal Plan of Care Note [code = 31535-7] Goal Plan of Care Note [code = 58373-6] Goal Plan of Care Note [code = 82155-2] Goal Plan of Care Note [code = 46830-5] Goal Plan of Care Note [code = 90862-6] Goal Plan of Care Note [code = 40271-0] Goal Plan of Care Note [code = 69898-9] Goal Plan of Care Note [code = 25946-0] Goal Plan of Care Note [code = 59312-1] Goal Plan of Care Note [code = 61305-8] Goal Plan of Care Note [code = 48652-7] Goal Plan of Care Note [code = 92264-2] Goal Plan of Care Note [code = 68996-0] Goal Plan of Care Note [code = 63388-6] Goal Plan of Care Note [code = 52796-6] Goal Plan of Care Note [code = 69157-6] Goal Plan of Care Note [code = 19756-7] Goal Plan of Care Note [code = 02495-9] Goal Plan of Care Note [code = 21450-9] Goal Plan of Care Note [code = 69019-9] Goal Plan of Care Note [code = 54859-1] Goal Plan of Care Note [code = 38461-3] Goal Plan of Care Note [code = 93676-9] Goal Plan of Care Note [code = 08952-8] Goal Plan of Care Note [code = 38920-4] Goal Plan of Care Note [code = 71951-0] Goal Plan of Care Note [code = 81141-5] Goal Plan of Care Note [code = 08973-4] Goal Plan of Care Note [code = 57357-1] Goal Plan of Care Note [code = 10030-9] Goal Plan of Care Note [code = 06660-1] Goal Plan of Care Note [code = 52826-7] Goal Plan of Care Note [code = 32620-4] Goal Plan of Care Note [code = 69155-6] Goal Plan of Care Note [code = 13599-9] Goal Plan of Care Note [code = 54732-1] Goal Plan of Care Note [code = 18704-9] Goal Plan of Care Note [code = 08326-6] Encounters Start End Encounter Admission Attending Care Care Encounter Source Date/Time Date/Time Type Type Clinicians Facility Department ID 2023-02-23 2023-02-23 Outpatient [facility] [id number] Memoria 15:00:00 15:00:00 00 dennise Dela Cruz 2023-02-23 2023-02-23 Outpatient [facility] [id number] Memoria 15:00:00 15:00:00 00 dennise Dela Cruz 2023-02-11 2023-02-11 Orders Doctor NICOLE 1.2.840.114 [id number] Univers 00:00:00 00:00:00 Only Unassigned, VICKY 350.1.13.10 ity of [place] [facility] 4.2.7.2.686 [place] [id number] [address] 2023-02-11 2023-02-11 Telephone Mino [facility] 1.2.840.114 [id number] Univers 00:00:00 00:00:00 , Felipe SPECIALTY 350.1.13.10 ity of CARE 4.2.7.2.686 [facility] AT [phone] Wa judith BEAULIEU [address] [place] [address] 2023-02-10 2023-02-10 Outpatient Laurie BURDICK [facility] [id number] Univers 16:40:00 16:40:00 SUZETTE ity of [facility] 2023-02-10 2023-02-10 Outpatient R [facility] [id number] Univers 13:40:00 14:32:08 SUZETTE ity of [facility] 2023-02-10 2023-02-10 Office [facility] 1.2.840.114 104 [id number] Univers 13:40:00 14:32:08 Visit Suzette SPECIALTY 350.1.13.10 [place] [phone] Wa judith BEAULIEU 198 [facility] 2023-02-07 2023-02-07 Telephone [facility] 1.2.840.114 [id number] Univers 00:00:00 00:00:00 , Felipe SPECIALTY 350.1.13.10 it[place] [phone] Wa judith BEAULIEU 198 [facility] 2023-02-07 2023-02-07 Telephone [facility] 1.2.840.114 [id number] Univers 00:00:00 00:00:00 , Felipe SPECIALTY 350.1.13.10 it[place] [phone] Wa judith BEAULIEU 198 [facility] 2023-02-03 2023-02-03 Hospital [facility] 1.2.840.114 10 [id number] Univers 14:26:56 23:59:00 Encounter Suzette SPECIALTY 350.1.13.10 it[place] [phone] Wa judith BEAULIEU 807 [facility] 2023-02-03 2023-02-03 Outpatient R [facility] [id number] Univers 13:00:00 14:18:20 SUZETTE ity [facility] 2023-02-03 2023-02-03 Office [facility] 1.2.840.114 104 [id number] Univers 13:00:00 14:18:20 Visit Suzette SPECIALTY 350.1.13.10 it[place] [phone] Wa dical BRADY [address] [facility] 2023-02-03 2023-02-03 Telephone [facility], [facility] 1.2.840.114 1 [id number] Univers 00:00:00 00:00:00 Suzette PRIMARY 350.1.13.10 it y [place].2.[place] [phone] [place] dical 198 [address] 2023-02-01 2023-02-01 Transition GILBERT Jones 1.2.840.114 104 [id number] Univers 00:00:00 00:00:00 of Care Estephania ARMENTA 350.1.13.10 it y [place] [phone] [facility] 403 Branch 2023-02-01 2023-02-01 [facility]phone [facility] 1.2.840.114 [id number] Univers 00:00:00 00:00:00 , Felipe SPECIALTY 350.1.13.10 it[place] [phone] Wa judith BEAULIEU 198 [facility] 2023-01-27 2023-01-30 Outpatient X [facility] [id number] Univers 03:22:00 17:25:00 , FELIPE ity of [facility] 2023-01-27 2023-01-30 Emergency White, Yg DUENAS 1.2.840. 114 [id number] Univers 03:22:00 17:25:00 Felipe Herzog 350.1.13.10 ity of HOSPITAL 4.2.7.2.686 [place] as [phone] [facility] 097 Branch 2023-01-28 2023-01-28 Letter Mino DUENAS 1.2.840.114 10 [id number] Univers 00:00:00 00:00:00 (Out) , Felipe PERRY 350.1.13.10 it y of HOSPITAL 4.2.7.2.686 [place] as 491.5847242 [facility] 097 Branch 2023-01-27 2023-01-27 Transition GILBERT Jones 1.2.840.114 104 [id number] Univers 00:00:00 00:00:00 of Care Estephania B ARMENTA 350.1.13.10 it y of [place]2.7.2.[place] [phone] [facility] 403 Branch 2023-01-17 2023-01-26 Inpatient R NIKKIMENDEZ [facility] [id number] Univers 05:13:00 14:00:00 , FELIPE ity of [facility] 2023-01-17 2023-01-26 [facility] 1.2.840.114 1 [id number] Univers 05:13:00 14:00:00 Encounter , Felipe VICKY 350.1.13.10 ity of HOSPITAL 4.2.7.2.686 [place] as [id number] [facility] 098 Branch 2023-01-17 2023-01-17 Surgery Nikkimendez DUENAS 1.2.840.114 10 [id number] Univers 07:00:00 15:50:00 , Felipe VICKY 350.1.13.10 it y of HOSPITAL 4.2.7.2.686 [place] as [phone] [facility] 103 Branch 2023-01-17 2023-01-17 Orders Doctor NICOLE 1.2.840.114 [id number] Univers 00:00:00 00:00:00 Only Unassigned, VICKY 350.1.13.10 ity of [place] [facility] 4.2.7.2.686 [place] as [id number] [facility] 009 Branch 2023-01-03 2023-01-03 Prep For Nikkimendez RIVERA 1.2.840.114 1 [id number] Univers 00:00:00 00:00:00 Surgery , Felipe VICKY 350.1.13.10 it y of HOSPITAL 4.2.7.2.686 [place] as [id number] [facility] 015 Branch 2022-12-06 2022-12-06 [facility]phone [facility] 1.2.840.114 [id number] Univers 00:00:00 00:00:00 , Felipe SPECIALTY 350.1.13.10 it[place] [phone] Wa judith BEAULIEU 198 [facility] 2022-11-10 2022-11-10 Telephone [facility] 1.2.840.114 [id number] Univers 00:00:00 00:00:00 , Felipe SPECIALTY 350.1.13.10 it[place] of C[place] 4.2.[place].2.[place] [id number] Wa judith BEAULIEU 198 [facility] 2022-11-10 2022-11-10 Orders Doctor NICOLE 1.2.840.114 [id number] Univers 00:00:00 00:00:00 Only Unassigned, VICKY 350.1.13.10 ity of [place] [facility] 4.2.7.2.686 Neal [id number] [facility] [address] 2022-11-04 2022-11-04 Telephone [facility] 1.2.840.114 [id number] Univers 00:00:00 00:00:00 , Felipe SPECIALTY 350.1.13.10 ity of CARE 4.2.7.2.686 [facility] AT [phone] Wa judith BEAULIEU 198 [facility] 2022-11-02 2022-11-02 Telephone [facility] 1.2.840.114 [id number] Univers 00:00:00 00:00:00 , Felipe SPECIALTY 350.1.13.10 ity of CARE 4.2.7.2.686 [facility] AT [phone] Wa judith BEAULIEU 198 [facility] 2022-10-28 2022-10-28 [facility] 417 [id number] Univers 15:56:01 23:59:00 , FELIPE ity of [facility] 2022-10-28 2022-10-28 [facility] 1.2.840.114 1 [id number] Univers 15:56:01 23:59:00 Encounter , Felipe NG 350.1.13.10 ity of [place].2.7.2.[place] [id number] [facility] [address] 2022-10-28 2022-10-28 Outpatient R JARON [facility] [id number] Univers 14:30:00 15:56:16 NADEEM ity of [facility] 2022-10-28 2022-10-28 Ancillary Georgina Molina [facility] 1 .2.840.114 [id number] Univers 14:30:00 15:56:16 Visit Jaron Nadeem Willams HERNANDEZ 350.1.13.10 ity of [place].7.2.[place] [phone] Wa dical NAL 179 [facility] 2022-10-28 2022-10-28 Telephone [facility] 1.2.840.114 [id number] Univers 00:00:00 00:00:00 , Felipe SPECIALTY 350.1.13.10 it[place] C[place].2.[place] [phone] Wa judith BEAULIEU 198 [facility] 2022-10-25 2022-10-25 Case Supervisor Lab, [facility] 1.2.840.114 10 [id number] Univers 11:30:00 11:45:00 Visit Felipe Herzog SPECIALTY 350.1.13. 10 it[place] C[place]2.[place].2.[place] [phone] Wa dickarissa SALINASY 353 [facility] 2022-10-25 2022-10-25 Outpatient R [facility] 145 [id number] Univers 11:30:00 11:30:00 , FELIPE ity of [facility] 2022-10-21 2022-10-21 Hospital [facility] 1.2.840.114 1 [id number] Univers 08:04:42 23:59:00 Encounter , Felipe SPECIALTY 350.1.13.10 it[place] C[place]2.[place] [phone] Wa dical BRADY 809 [facility] 2022-10-21 2022-10-21 Outpatient R [facility] 442 [id number] Univers 08:15:00 10:08:14 , FELIPE ity of [facility] 2022-10-21 2022-10-21 Office [facility] 1.2.840.114 10 [id number] Univers 08:15:00 10:08:14 Visit , Felipe SPECIALTY 350.1.13.10 it[place] of C[place] 4.2.7.2.[place] [id number] Wa judith BEAULIEU 198 [facility] 2022-10-21 2022-10-21 Abstract [facility] 1.2.840.114 1 [id number] Univers 00:00:00 00:00:00 , Felipe SPECIALTY 350.1.13.10 it[place] C[place]2.[place].2.[place] 252.2838340 Wa judith BEAULIEU 809 [facility] 2022-10-19 2022-10-19 Orders Doctor NICOLE 1.2.840.114 [id number] Univers 00:00:00 00:00:00 Only Unassigned, VICKY 350.1.13.10 ity of [place] HOSPITAL 4.2.7.2.686 [place] as [phone] [facility] xiomy [address] [place] [address] 2022-10-14 2022-10-14 Outpatient R [facility] 294 [id number] Univers 16:30:00 17:13:41 , FELIPE ity of [facility] 2022-10-14 2022-10-14 Telemedici [facility] 1.2.840.114 [id number] Univers 16:30:00 17:13:41 ne Visit , Felipe SPECIALTY 350.1.13.10 ity of CARE 4.2.7.2.686 [facility] C[facility] AT [phone] Wa judith BEAULIEU 198 [facility] 2022-10-13 2022-10-13 Telephone [facility] 1.2.840.114 [id number] Univers 00:00:00 00:00:00 , Felipe SPECIALTY 350.1.13.10 ity of CARE 4.2.7.2.686 [facility] C[facility] AT [phone] Wa judith BEAULIEU 198 [facility] 2022-10-07 2022-10-07 Telephone [facility] 1.2.840.114 [id number] Univers 00:00:00 00:00:00 , Felipe SPECIALTY 350.1.13.10 it[place].2.[place] [id number] Wa judith BEAULIEU 198 [facility] 2022-10-05 2022-10-05 Telephone [facility] 1.2.840.114 [id number] Univers 00:00:00 00:00:00 , Felipe SPECIALTY 350.1.13.10 it[place]2.[place].2.[place] [phone] Wa judith Yang [facility] 2022-09-23 2022-09-23 Telephone [facility] 1.2.840.114 [id number] Univers 00:00:00 00:00:00 , Felipe SPECIALTY 350.1.13.10 ity of C[place] 4.2.[place].2.[place] 394.4590662 Wa judith Yang [facility] 2022-09-16 2022-09-16 Telephone [facility] 1.2.840.114 [id number] Univers 00:00:00 00:00:00 , Felipe SPECIALTY 350.1.13.10 it[place] 4.2.7.2.[place] [id number] Wa judith BEAULIEU [address] [place] [address] 2022-09-08 2022-09-08 Orders Doctor NICOLE 1.2.840.114 [id number] Univers 00:00:00 00:00:00 Only Unassigned, VICKY 350.1.13.10 ity of [place] [facility] 4.2.7.2.686 [place] as [phone] [facility] [address] 2022-09-07 2022-09-07 Outpatient [facility] [id number] Univers 10:00:00 10:00:00 CHITOÑAANA ity o f [facility] 2022-08-23 2022-08-23 Telephone ELIDA Bueno 1.2.840.114 99 [id number] Univers 00:00:00 00:00:00 [facility] 350.1.13.10 i ty of CLINICS 4[place].2.[place] [id number] [facility] [address] 2022-08-17 2022-08-17 [facility] [id number] Univers 13:30:00 13:30:00 COLLEEN ity [facility] 2022-08-16 2022-08-16 Telephone ELIDA Ng 1.2.840.114 99 [id number] Univers 00:00:00 00:00:00 [facility] 350.1.13.10 i ty of CLINICS 4[place]2.[place].2.[place] 553.3307340 [facility] [address] 2022-08-09 2022-08-09 Outpatient R NANCY, [facility] [id number] Univers 15:15:00 15:15:00 NATE ity [facility] 2022-07-22 2022-07-22 [facility] 1.2.840.114 9 [id number] Univers 17:45:53 23:59:00 Encounter , Felipe SPECIALTY 350.1.13.10 ity of C[place] 4.2.[place].2.[place] [id number] Wa judith BEAULIEU 809 [facility] 2022-07-22 2022-07-22 [facility] 1.2.840.114 [id number] Univers 17:38:15 17:44:00 Encounter , Felipe SPECIALTY 350.1.13.10 ity of C[place]2.[place] 160.9947663 Wa judith BEAULIEU 807 [facility] 2022-07-22 2022-07-22 Outpatient R [facility] 006 [id number] Univers 00:00:00 17:44:00 , FELIPE ity of [facility] 2022-07-22 2022-07-22 Office [facility] 1.2.840.114 [id number] Univers 16:30:00 16:45:00 Visit , Felipe SPECIALTY 350.1.13.10 ity of C[place] [id number] Wa judith BEAULIEU 198 [facility] 2022-07-20 2022-07-20 Telephone [facility] 1.2.840.114 [id number] Univers 00:00:00 00:00:00 , Felipe SPECIALTY 350.1.13.10 ity of C[place] 4[place].2.[place] 281.1158541 Wa judith BEAULIEU 198 [facility] 2022-07-15 2022-07-15 Telephone [facility] 1.2.840.114 [id number] Univers 00:00:00 00:00:00 , Felipe SPECIALTY 350.1.13.10 ity of C[place]2.[place].2.[place] [phone] Wa judith Yang [facility] 2022-07-08 2022-07-08 Outpatient R MINO [facility] [id number] Univers 13:45:00 13:45:00 , FELIPE ity of [facility] 2022-07-07 2022-07-07 Outpatient R TIMI [facility] [id number] Univers 13:00:00 13:00:00 CHINICK ity o f [facility] 2022-06-03 2022-06-03 Outpatient R CECELIA MOODY [facility] 10 [id number] Univers 14:00:00 14:00:00 CECELIA MOODY i ty of [facility] 2022-06-03 2022-06-03 Outpatient R CECELIA MOODY [facility] 10 [id number] Univers 14:00:00 14:00:00 CECELIA MOODY i ty [facility] 2022-04-30 2022-04-30 Telephone [facility] 1.2.840.114 [id number] Univers 00:00:00 00:00:00 , Felipe SPECIALTY 350.1.13.10 it[place]2.[place] [id number] Wa judith BEAULIEU [address] [place] [address] 2022-04-22 2022-04-22 Orders Doctor RIVERA 1.2.840.114 [id number] Univers 00:00:00 00:00:00 Only Unassigned, VICKY 350.1.13.10 ity of [place] [facility] 4.2.7.2.686 [place] as [id number] [address] 2022-04-19 2022-04-19 Telephone [facility] 1.2.840.114 [id number] Univers 00:00:00 00:00:00 , Felipe GALVEZ 350.1.13.10 ity of [facility] 4.2.7.2.686 [facility] AT 653.0950754 Wa judith BEAULIEU 198 [facility] 2022-04-07 2022-04-07 Outpatient R RADIOLOGY [facility] [id number] Univers 00:00:00 00:00:00 ity [facility] 2022-03-25 2022-03-25 Case Supervisor Test, [facility] Pulmonary Function [facility] 1.2.840.114 [id number] Univers 08:00:00 09:00:00 Visit Unknown, Attending MULTISPEC 350.1.13. 10 ity of [place] 4.2.7.2.686 [facility] [id number] [facility] AND PETTY [address] [facility] 2022-03-25 2022-03-25 Outpatient R UNKNOWN, [facility] [id number] Univers 08:00:00 08:00:00 ATTENDING ity [facility] 2022-03-24 2022-03-24 Outpatient R [facility] [id number] Univers 08:00:00 08:00:00 ity [facility] 2022-03-24 2022-03-24 Outpatient R [facility] [id number] Univers 08:00:00 08:00:00 ity [facility] 2022-03-23 2022-03-23 Laboratory Only, Adc Test [facility] 1.2.840. 114 [id number] Univers 14:00:00 14:15:00 Only Lena Quinones 350.1.13.10 ity of [place] 4.2.7.2.686 [facility] [id number] [facility] [address] 2022-03-23 2022-03-23 Outpatient R JONI [facility] [id number] Univers 14:00:00 14:00:00 LENA [facility] 2022-03-23 2022-03-23 Orders Doctor RIVERA 1.2.840.114 [id number] Univers 00:00:00 00:00:00 Only Unassigned, VICKY 350.1.13.10 ity of [place] [facility] 4.2.7.2.686 [place] as [id number] [facility] [address]9 [address] 2022-03-16 2022-03-16 Outpatient R [facility] [id number] Univers 13:00:00 13:00:00 ity of [facility] 2022-03-11 2022-03-11 Telemedici [facility] 1.2.840.114 [id number] Univers 16:30:00 16:45:00 ne Visit , Felipe SPECIALTY 350.1.13.10 it[place] 469.3305372 Wa dical VICTORY 198 [facility] 2022-03-11 2022-03-11 Outpatient R [facility] 270 [id number] Univers 16:30:00 16:30:00 , FELIPE ity of [facility] 2022-03-11 2022-03-11 Orders Doctor NICOLE 1.2.840.114 [id number] Univers 00:00:00 00:00:00 Only Unassigned, VICKY 350.1.13.10 ity of [place] [facility] 4.2.7.2.686 [place] [id number] [facility] [address] 2022-03-11 2022-03-11 Telephone [facility] 1.2.728.794 [id number] Univers 00:00:00 00:00:00 Bettie NG 350.1.13.10 i ty of [place] 717.8887711 Wa dical NAL 296 [facility] 2022-03-10 2022-03-10 [facility] 1.2.840.114 [id number] Univers 15:11:33 23:59:00 Encounter , Felipe Y HEALTH 350.1.13.10 ity of CL[place]ICS [place].2.[place] [id number] [facility] 8[address] 2022-03-10 2022-03-10 [facility] 1.2.840.114 [id number] Univers 15:11:05 23:59:00 Encounter , Felipe Y HEALTH 350.1.13.10 ity of CL[place]ICS [place] 810.3864885 [facility] [address] 2022-03-10 2022-03-10 [facility] 1.2.840.114 [id number] Univers 15:00:00 15:10:00 Encounter , Felipe Y HEALTH 350.1.13.10 ity of CL[place]ICS [place].2.[place] 627.1554684 [facility] [address] 2022-03-10 2022-03-10 Outpatient R [facility] 631 [id number] Univers 14:50:03 14:59:00 , FELIPE ity of [facility] 2022-03-10 2022-03-10 [facility] 1.2.840.114 [id number] [facility] 14:45:00 14:59:00 Encounter , Felipe Y HEALTH 350.1.13.10 [place] [id number] [facility] [address] 2022-03-09 2022-03-09 Telephone [facility] 1.2.840.114 [id number] Univers 00:00:00 00:00:00 , Felipe SPECIALTY 350.1.13.10 [place] [phone] Wa judith BEAULIEU [address] [place] [address] 2022-03-08 2022-03-08 Telephone [facility] 1.2.840.114 [id number] Univers 00:00:00 00:00:00 , Felipe SPECIALTY 350.1.13.10 [place] [id number] Wa dickarissa BEAULIEU 198 [facility] 2022-03-03 2022-03-03 Outpatient R [facility] [id number] Univers 13:00:00 13:00:00 ity of [facility] 2022-03-01 2022-03-01 Outpatient [id number] 00:00:00 00:00:00 Visit [id number] 1792-07-25 2022-03-01 Letter Testing, UNIVERSIT 1.2.840.114 [id number] Univers 00:00:00 00:00:00 (Out) [facility] Y HEALTH 350.1.13.10 i ty of Pulmonary CLIN[place] [id number] Med ical [address] 2022-02-26 2022-02-26 Orders Doctor NICOLE 1.2.840.114 [id number] Univers 00:00:00 00:00:00 Only Unassigned, VICKY 350.1.13.10 ity of [place] [facility] 4.2.7.2.686 [place] as [id number] [facility] [address] 2022-02-25 2022-02-25 [facility] 1.2.840.114 [id number] Univers 00:00:00 00:00:00 , Felipe SPECIALTY 350.1.13.10 [place] [phone] [address] 2022-02-23 2022-02-23 Office Fellow, Pulmonary UNIVERSIT 1.2.84 0.114 [id number] Univers 08:00:00 09:00:00 Visit [facility] HEALTH 350.1. 13.10 [place] [id number] [facility] [address] 2022-02-23 2022-02-23 Outpatient R MARTINA [facility] [id number] Univers 08:00:00 08:00:00 SUN corbin [facility] 2022-02-16 2022-02-16 Outpatient R NANCY [facility] [id number] Univers 13:00:00 13:00:00 NATE murcia [facility] 2022-02-10 2022-02-10 Outpatient R MINO [facility] [id number] Univers 00:00:00 00:00:00 , FELIPE murcia [facility] 2022-02-10 2022-02-10 Outpatient R MINO [facility] [id number] Univers 00:00:00 00:00:00 , FELIPE murcia [facility] 2022-02-09 2022-02-09 Outpatient [id number]- [id number] ef [id number] 00:00:00 00:00:00 Visit [id number] 2022-02-05 2022-02-05 Outpatient R TRISTANKELIN [facility] [id number] Univers 09:00:00 09:00:00 [facility] 2022-02-05 2022-02-05 Outpatient R MARTINA [facility] [id number] Univers 09:00:00 09:00:00 [facility] 2022-01-18 2022-01-18 Outpatient R MINO [facility] [id number] Univers 00:00:00 00:00:00 , FELIPE murcia [facility] 2022-01-18 2022-01-18 Outpatient R [facility]O [facility] [id number] Univers 00:00:00 00:00:00 , FELIPE murcia [facility] 2022-01-18 2022-01-18 Outpatient R [facility]O [facility] [id number] Univers 00:00:00 00:00:00 , FELIPE murcia [facility] 2022-01-05 2022-01-05 Outpatient Laurie CRUZ [facility] [id number] Univers 16:00:00 16:00:00 NATE murcia [facility] 2022-01-05 2022-01-05 Outpatient Laurie CRUZ [facility] [id number] Univers 16:00:00 16:00:00 NATE murcia [facility] 2021-12-29 2021-12-29 Telephone [facility] 1.2.840.114 [id number] Univers 00:00:00 00:00:00 , Felipe [facility] 350.1.13.10 [place] [phone] Wa judith BEAULIEU 198 [facility] 2021-12-29 2021-12-29 Telephone [facility] 1.2.840.114 [id number] Univers 00:00:00 00:00:00 , Felipe SPECIALTY [id number] [place] [phone] Wa judith BEAULIEU 198 [facility] 2021-12-23 2021-12-23 Telephone [facility] 1.2.840.114 [id number] Univers 00:00:00 00:00:00 , Felipe SPECIALTY 350.1.13.10 [place] [phone] Wa judith BEAULIEU 198 [facility] 2021-12-17 2021-12-17 Outpatient R [facility] [id number] Univers 13:46:31 23:59:00 , FELIPE ity of [facility] 2021-12-17 2021-12-17 [facility] 1.2.840.114 [id number] Univers 13:46:31 23:59:00 Encounter , Felipe SPECIALTY 350.1.13.10 [place] [phone] Wa judith BEAULIEU 809 [facility] 2021-12-17 2021-12-17 [facility] [id number] Univers 13:46:31 23:59:00 , FELIPE ity of [facility] 2021-12-17 2021-12-17 Case Supervisor Vls-Lab [facility] 1.2.840.114 [id number] Univers 16:45:00 17:00:00 Visit Keith Herzogya SPECIALTY 350.1.13. 10 [place] [phone] Wa judith BEAULIEU 353 [facility] 2021-12-17 2021-12-17 Outpatient R [facility] [id number] Univers 13:45:00 16:36:26 , FELIPE ity [facility] 2021-12-17 2021-12-17 Outpatient R [facility] [id number] Univers 13:45:00 16:36:26 , FELIPE ity [facility] 2021-12-17 2021-12-17 Office [facility] 1.2.840.114 [id number] Univers 13:45:00 16:36:26 Visit , Felipe SPECIALTY 350.1.13.10 [place] [phone] [facility] 198 [facility] 2021-12-17 2021-12-17 Outpatient R [facility] [id number] Univers 13:45:00 16:36:26 , FELIPE ity [facility] 2021-12-17 2021-12-17 Office [facility] 1.2.840.114 [id number] Univers 13:45:00 16:36:26 Visit , Felipe SPECIALTY 350.1.13.10 [place] [phone] [facility] 2021-12-17 2021-12-17 Outpatient R [facility] [id number] Univers 13:45:00 13:45:00 , FELIPE ity [facility] 2021-11-17 2021-11-17 Orders Doctor RIVERA 1.2.840.114 [id number] Univers 00:00:00 00:00:00 Only Unassigned, VICKY 350.1.13.10 ity of [place] [facility] 4.2.7.2.686 Neal as [phone] [address] 2021-11-04 2021-11-04 Orders Doctor NICOLE Yusuf2.840.114 [id number] Univers 00:00:00 00:00:00 Only Unassigned, VICKY 350.1.13.10 ity of [place] [facility] 4.2.7.2.686 Neal as [phone] [facility] [address] 2021-10-19 2021-10-19 Orders Doctor NICOLE Yusuf2.840.114 [id number] Univers 00:00:00 00:00:00 Only Unassigned, VICKY 350.1.13.10 ity of [place] [facility] 4.2.7.2.686 [place] as [phone] [address] 2021-04-10 2021-04-10 Outpatient R TIMI [facility] [id number] Univers 10:00:00 10:00:00 PAGE [facility] 2021-04-10 2021-04-10 Orders Doctor NICOLE 1.2.840.114 [id number] Univers 00:00:00 00:00:00 Only Unassigned, VICKY 350.1.13.10 ity of [place] [facility] 4.2.7.2.686 Neal as [phone] [address] 2021-04-09 2021-04-09 Emergency [facility] 1.2.840.114 [id number] Univers 15:40:00 17:13:00 Junior Geddes 350.1.13.10 i ty [facility] 4.2.7.2.686 [place] [facility] [phone] [facility] [address] 2021-04-09 2021-04-09 Emergency X [facility] [id number] Univers 15:27:00 15:27:00 JUNIOR [facility] 2020-06-27 2020-06-27 Outpatient G_Pappas [facility] [id number] [place] 12:50:00 12:50:00 120 [facility] Results Test Description Test Time Test Comments Results Result Comments Source C-REACTIVE PROTEIN 2023-01-27 15:46:22 Test Item Value Reference Range Interpretation Comme nts CRP (test code = 7233960246) 8.7 mg/dL <=0.8 H Lab Interpretation (test code = 96962-9) [id number] 09:42:48 Test Item Value Reference Range Interpretation Comments ESR (test code = 89 See_Comment H [Automated message] 33071-8) The system [employer] generated this result transmitted ref erence range: 2 - 30 m m/HR. The reference r prasanth was not used to interpret this result as normal/abnor mal. Lab Interpretation (test Abnormal code = 14598-4) [facility] WITH [id number] 09:17:05 Test Item Value Reference Range Interpretation Comments WBC (test code = 8.86 See_Comment [Automated 6690-2) message] The sy stem which generated this result transmitted reference range : 4.30 - 11.10 10*3/?L. The reference range was not used to interpret this result as normal/abnormal . RBC (test code = 2.79 See_Comment L [Automated 789-8) message] The sy stem which generated this [...] (test code = 52.4 fL 39.0-49.9 H 36718-2) RDW-CV (test code = 15.5 % 12.0-15.5 788-0) PLT (test code = 576 See_Comment H [Automated 777-3) message] The sy stem which generated this result transmitted reference range : 166 - 358 10*3/ ?L. The reference r prasanth was not used to interpret this result as normal/abnormal . MPV (test code = 9.6 fL 9.5-12.9 06639-0) NRBC/100 WBC (test 0.2 See_Comment [Automat ed code = 5131261642) message] The system which generated this result transmitted reference range : 0.0 - 10.0 /100 WBCs. The refer ence range was not u sed to interpret th is result as normal/abnormal . NRBC x10^3 (test code 0.02 See_Comment [Auto mated = 5340852182) message] The s ystem which generated this result transmitted reference range : 10*3/?L. The reference range was not used to interpret this result as normal/abnormal . GRAN MAT (NEUT) % 67.4 % (test code = 770-8) IMM GRAN % (test code 1.20 % = 9652585374) LYMPH % (test code = 19.5 % 736-9) MONO % (test code = 9.9 % 5905-5) EOS % (test code = 1.7 % 713-8) BASO % (test code = 0.3 % 706-2) GRAN MAT x10^3(ANC) 5.96 10*3/uL 1.88-7.09 (test code = 7496057532) IMM GRAN x10^3 (test 0.11 10*3/uL 0.00-0.06 H code = 5348369416) LYMPH x10^3 (test code 1.73 10*3/uL 1.32-3.29 = 731-0) MONO x10^3 (test code 0.88 10*3/uL 0.33-0.92 = 742-7) EOS x10^3 (test code = 0.15 10*3/uL 0.03-0.39 711-2) BASO x10^3 (test code 0.03 10*3/uL 0.01-0.07 = 704-7) Lab Interpretation Abnormal (test code = 32282-3) [id number] 21:55:34 Test Item Value Reference Interpretation Comments Range D-DIMER (test code = 1.08 See_Comment H [Autom ated 8380488078) message] The system which generated this result [...] diagnosis. Lab Interpretation Abnormal (test code = 40669-8) [facility] WITHOUT [id number] 21:55:14 Test Item Value Reference Range Interpretation Comments WBC (test code = 6690-2) 11.37 See_Comment H [A utomated message] The system [employer] generated this result transmit paige reference range : 4.30 - 11.10 10*3/?L. The reference range was not used to interpret this result as normal/abnormal . RBC (test code = 789-8) 2.56 See_Comment L [Au tomated message] The system [employer] generated this result transmit paige reference range [...] 217 See_Comment [Au tomated message] The system [employer] generated this result transmit paige reference range : 166 - 358 10*3/?L. The reference range was not used to interpret this result as normal/abnormal . MPV (test code = 11.1 fL 9.5-12.9 37508-1) RDW-CV (test code = 15.3 % 12.0-15.5 788-0) RDW-SD (test code = 49.4 fL 39.0-49.9 95851-4) NRBC x10^3 (test code = 0.02 See_Comment [Au tomated message] 8496545613) The system [employer] h generated this result transmit paige reference range : 10*3/?L. The reference range was not used to interpret this result as normal/abnormal . NRBC/100 WBC (test code 0.2 See_Comment [Au tomated message] = 5208767538) The system [employer] generated this result transmit paige reference range : 0.0 - 10.0 /100 WBC s. The reference r prasanth was not used to interpret this result as normal/abnormal . IPF % (test code = 6707621148) Lab Interpretation (test Abnormal code = 26835-0) [facility] METABOLIC PANEL (NA, K, CL, CO2, GLUCOSE, BUN, CREATININE, CA)2023-01-19 12:17:50 Test Item Value Reference Range Interpretation Comments NA (test code = 135 mmol/L 135-145 8310134812) K (test code = 3.9 mmol/L 3.5-5.0 8691074250) CL (test code = 106 mmol/L 98-108 9248947383) CO2 TOTAL (test code = 25 mmol/L 23-31 1193561075) AGAP (test code = 4 2-16 5933569128) BUN (test code = 9 mg/dL 7-23 3702409526) GLUCOSE (test code = 109 mg/dL 70-110 3641043994) CREATININE (test code = 0.57 mg/dL 0.50-1.04 5624761866) CALCIUM (test code = 7.4 mg/dL 8.6-10.6 L 7087841777) eGFR (test code = 111.8 mL/min/1.73m2 7004943951) JULI (test code = JULI) Association of [...] tests). Lab Interpretation Abnormal (test code = 30052-0) [facility] 12:17:50 Test Item Value Reference Range Interpretation Comments MAGNESIUM (test code = 0085730132) 2.1 mg/dL 1.7-2.4 Lab Interpretation (test code = Normal 62332-7) [facility] 12:17:50 Test Item Value Reference Range Interpretation Comments PHOSPHORUS (test code = 0330016443) 2.2 mg/dL 2.5-5.0 L Lab Interpretation (test code = Abnormal 96699-3) [facility] WITH [id number] 12:01:08 Test Item Value Reference Range Interpretation Comments WBC (test code = 14.40 See_Comment H [Automated 5548-2) message] The system which generated this result transmit paige reference range : 4.30 - 11.10 10*3/?L. The reference range was not used to interpret this result as normal/abnormal . RBC (test code = 2.76 See_Comment L [Automated 024-8) message] The system which generated this result [...] (test code = 50.0 fL 39.0-49.9 H 74391-1) RDW-CV (test code = 15.6 % 12.0-15.5 H 788-0) PLT (test code = 177 See_Comment [Automated 777-3) message] The system which generated this result transmit paige reference range : 166 - 358 10*3/ ?L. The reference range was not u sed to interpret th is result as normal/abnormal . MPV (test code = 11.4 fL 9.5-12.9 83023-1) NRBC/100 WBC (test 0.0 See_Comment [Automat ed code = 2304874471) message] The system which generated this result transmit paige reference range : 0.0 - 10.0 /100 WBCs. The reference range was not used to interpret this result as normal/abnormal . NRBC x10^3 (test code See_Comment [Auto mated = 5248261335) message] The system which generated this result transmit paige reference range : 10*3/?L. The reference range was not used to interpret this result as normal/abnormal . GRAN MAT (NEUT) % 82.1 % (test code = 770-8) IMM GRAN % (test code 0.60 % = 3044857617) LYMPH % (test code = 9.4 % 736-9) MONO % (test code = 7.4 % 5905-5) EOS % (test code = 0.4 % 713-8) BASO % (test code = 0.1 % 706-2) GRAN MAT x10^3(ANC) 11.83 10*3/uL 1.88-7.09 H (test code = 7877179971) IMM GRAN x10^3 (test 0.08 10*3/uL 0.00-0.06 H code = 8088346791) LYMPH x10^3 (test code 1.35 10*3/uL 1.32-3.29 = 731-0) MONO x10^3 (test code 1.06 10*3/uL 0.33-0.92 H = 742-7) EOS x10^3 (test code = 0.06 10*3/uL 0.03-0.39 711-2) BASO x10^3 (test code 0.01-0.07 = 704-7) Lab Interpretation Abnormal (test code = 61031-3) [facility] Packed RBC (in units), 2 Units 2023-01-18 02:43:04 Test Item Value Reference Range Interpretation Comments Cross Match Result Compatible (test code = 4409) ISBT Blood Type Code 6200 (test code = 815506) Unit Blood Type (test A Pos code = 4410) Unit Number (test [id number] code = 4411) Blood Expiration Date & Time (test code = 930870) Status Information Returned from (test code = 4412) Issue Product Red Blood Cells Identification (test code = 4413) Product Code (test J2500Y00 Performed at code = 4414) [facility] Laboratory Services [facility] Blood [address] [place] [address]Ohan Free: [phone] A No. [id number] [facility] Packed RBC (in units), 2 Units 2023-01-18 02:43:04 Test Item Value Reference Range Interpretation Comments Cross Match Result Compatible (test code = 4409) ISBT Blood Type Code 6200 (test code = 882419) Unit Blood Type (test A Pos code = 4410) Unit Number (test [id number] code = 4411) Blood Expiration Date & Time (test code = 896573) Status Information Returned from (test code = 4412) Issue Product Red Blood Cells Identification (test code = 4413) Product Code (test C0253V13 Performed at code = 4414) [facility] Laboratory Services [facility] Blood [address] [place] [address]Gcle Free: [phone] A No. [id number] [facility]OOX+NA+K+GLU+CA2+2023-01-18 02:05:53 Test Item Value Reference Range Interpretation Comments PH (test code = 2) 7.36 7.35-7.45 PCO2 (test code = 31 See_Comment L [Automate d message] 1096335494) The system [employer] generated this result transmit paige reference range : 35 - 45 mmHg. The reference range was not used to interpret this result as normal/abnormal . PO2 (test code = 153 See_Comment H [Automated message] 0609909202) The system [employer] generated this result transmit paige reference range : 80 - 100 mmHg. The reference range was not used to interpret this result as normal/abnormal . HCO3 (test code = 17 See_Comment L [Automate d message] 3835192494) The system [employer] generated this result transmit paige reference range : 22 - 26 mEq/L. The reference range was not used to interpret this result as normal/abnormal . BE (test code = -7.4 See_Comment L [Automated message] 1495908636) The system [employer] generated this result transmit paige reference range : -3.0 - 3.0 mEq/ L. The reference r prasanth was not used to interpret this result as normal/abnormal . THB (test code = 9.0 g/dL 12.0-16.0 L 7458394323) %O2HB (test code = 97.7 % 94.0-99.0 5461735610) %COHB ART (test code = 0.3 % 0.0-1.5 5349429685) %METHB ART (test code = 0.2 % 0.4-1.5 L 7004195573) VOL%O2 ART (test code = 12.7 % 15.0-23.0 L QUES 7618277511) NA (test code = 135 mmol/L 135-145 8616723669) K+ (test code = 4.0 mmol/L 3.5-5.0 0522608620) AC CA IONZ (test code = 4.90 mg/dL 4.50-5.30 9790698997) GLUCOSE (test code = 133 mg/dL 70-110 H 3047193900) Lab Interpretation Abnormal (test code = 57246-2) [facility]NA+K+GLU+CA2+2023-01-18 02:05:53 Test Item Value Reference Range Interpretation Comments PH (test code = 2) 7.36 7.35-7.45 PCO2 (test code = 31 See_Comment L [Automate d message] 7552719417) The system [employer] generated this result transmit paige reference range : 35 - 45 mmHg. The reference range was not used to interpret this result as normal/abnormal . PO2 (test code = 153 See_Comment H [Automated message] 2975559946) The system [employer] generated this result transmit paige reference range : 80 - 100 mmHg. The reference range was not used to interpret this result as normal/abnormal . HCO3 (test code = 17 See_Comment L [Automate d message] 0377653807) The system [employer] generated this result transmit paige reference range : 22 - 26 mEq/L. The reference range was not used to interpret this result as normal/abnormal . BE (test code = -7.4 See_Comment L [Automated message] 8912893705) The system [employer] generated this result transmit paige reference range : -3.0 - 3.0 mEq/ L. The reference r prasanth was not used to interpret this result as normal/abnormal . THB (test code = 9.0 g/dL 12.0-16.0 L 4340531408) %O2HB (test code = 97.7 % 94.0-99.0 7757501313) %COHB ART (test code = 0.3 % 0.0-1.5 7979576507) %METHB ART (test code = 0.2 % 0.4-1.5 L 3797985527) VOL%O2 ART (test code = 12.7 % 15.0-23.0 L QUES 1473704080) NA (test code = 135 mmol/L 135-145 2511426847) K+ (test code = 4.0 mmol/L 3.5-5.0 4017214147) AC CA IONZ (test code = 4.90 mg/dL 4.50-5.30 2944367220) GLUCOSE (test code = 133 mg/dL 70-110 H 6681122752) Lab Interpretation Abnormal (test code = 12234-1) [facility]GLU[facility]CA2+2023-01-18 02:05:38 Test Item Value Reference Range Interpretation Comments PH (test code = 2) 7.36 7.35-7.45 PCO2 (test code = 31 See_Comment L [Automate d message] 3436595566) The system [employer] generated this result transmit paige reference range : 35 - 45 mmHg. The reference range was not used to interpret this result as normal/abnormal . PO2 (test code = 155 See_Comment H [Automated message] 4775933859) The system [employer] generated this result transmit paige reference range : 80 - 100 mmHg. The reference range was not used to interpret this result as normal/abnormal . HCO3 (test code = 17 See_Comment L [Automate d message] 2987133259) The system [employer] generated this result transmit paige reference range : 22 - 26 mEq/L. The reference range was not used to interpret this result as normal/abnormal . BE (test code = -7.7 See_Comment L [Automated message] 8485532479) The system [employer] generated this result transmit paige reference range : -3.0 - 3.0 mEq/ L. The reference r prasanth was not used to interpret this result as normal/abnormal . THB (test code = 7.8 g/dL 12.0-16.0 LL 1108830994) %O2HB (test code = 98.2 % 94.0-99.0 3761588420) %COHB ART (test code = 0.0 % 0.0-1.5 5894140932) %METHB ART (test code = 0.3 % 0.4-1.5 L 8947225654) VOL%O2 ART (test code = 11.1 % 15.0-23.0 L QUES 1287646862) NA (test code = 135 mmol/L 135-145 7600417283) K+ (test code = 3.6 mmol/L 3.5-5.0 1200345288) AC CA IONZ (test code = 4.40 mg/dL 4.50-5.30 L 1251287311) GLUCOSE (test code = 121 mg/dL 70-110 H 7814054171) Lab Interpretation Abnormal (test code = 33233-2) [facility]+K+GLU+CA2+2023-01-18 02:05:38 Test Item Value Reference Range Interpretation Comments PH (test code = 2) 7.36 7.35-7.45 PCO2 (test code = 31 See_Comment L [Automate d message] 2180594016) The system [employer] generated this result transmit paige reference range : 35 - 45 mmHg. The reference range was not used to interpret this result as normal/abnormal . PO2 (test code = 155 See_Comment H [Automated message] 2658326646) The system [employer] generated this result transmit paige reference range : 80 - 100 mmHg. The reference range was not used to interpret this result as normal/abnormal . HCO3 (test code = 17 See_Comment L [Automate d message] 9940915195) The system [employer] generated this result transmit paige reference range : 22 - 26 mEq/L. The reference range was not used to interpret this result as normal/abnormal . BE (test code = -7.7 See_Comment L [Automated message] 6945082582) The system [employer] generated this result transmit paige reference range : -3.0 - 3.0 mEq/ L. The reference r prasanth was not used to interpret this result as normal/abnormal . THB (test code = 7.8 g/dL 12.0-16.0 LL 0732826356) %O2HB (test code = 98.2 % 94.0-99.0 9077396431) %COHB ART (test code = 0.0 % 0.0-1.5 5655409767) %METHB ART (test code = 0.3 % 0.4-1.5 L 5441545391) VOL%O2 ART (test code = 11.1 % 15.0-23.0 L QUES 4742355139) NA (test code = 135 mmol/L 135-145 9207152499) K+ (test code = 3.6 mmol/L 3.5-5.0 7349588358) AC CA IONZ (test code = 4.40 mg/dL 4.50-5.30 L 4151754669) GLUCOSE (test code = 121 mg/dL 70-110 H 1976510243) Lab Interpretation Abnormal (test code = 93519-6) [facility]+K+GLU+CA2+2023-01-18 01:59:13 Test Item Value Reference Range Interpretation Comments PH (test code = 2) 7.37 7.35-7.45 PCO2 (test code = 31 See_Comment L [Automate d message] 3005260733) The system [employer] generated this result transmit paige reference range : 35 - 45 mmHg. The reference range was not used to interpret this result as normal/abnormal . PO2 (test code = 191 See_Comment H [Automated message] 0323667367) The system [employer] generated this result transmit paige reference range : 80 - 100 mmHg. The reference range was not used to interpret this result as normal/abnormal . HCO3 (test code = 17 See_Comment L [Automate d message] 4293882570) The system [employer] generated this result transmit paige reference range : 22 - 26 mEq/L. The reference range was not used to interpret this result as normal/abnormal . BE (test code = -6.9 See_Comment L [Automated message] 6166035351) The system [employer] generated this result transmit paige reference range : -3.0 - 3.0 mEq/ L. The reference r prasanth was not used to interpret this result as normal/abnormal . THB (test code = 9.2 g/dL 12.0-16.0 L 7223745178) %O2HB (test code = 98.7 % 94.0-99.0 7479338490) %COHB ART (test code = 0.1 % 0.0-1.5 4683195859) %METHB ART (test code = 0.3 % 0.4-1.5 L 3172855312) VOL%O2 ART (test code = 13.2 % 15.0-23.0 L QUES 3038671332) NA (test code = 136 mmol/L 135-145 9289456526) K+ (test code = 3.8 mmol/L 3.5-5.0 8340247173) AC CA IONZ (test code = 4.60 mg/dL 4.50-5.30 3553817609) GLUCOSE (test code = 113 mg/dL 70-110 H 6768603176) Lab Interpretation Abnormal (test code = 67800-9) [facility]+K+GLU+CA2+2023-01-18 01:59:13 Test Item Value Reference Range Interpretation Comments PH (test code = 2) 7.37 7.35-7.45 PCO2 (test code = 31 See_Comment L [Automate d message] 9092025523) The system [employer] generated this result transmit paige reference range : 35 - 45 mmHg. The reference range was not used to interpret this result as normal/abnormal . PO2 (test code = 191 See_Comment H [Automated message] 5133692594) The system [employer] generated this result transmit paige reference range : 80 - 100 mmHg. The reference range was not used to interpret this result as normal/abnormal . HCO3 (test code = 17 See_Comment L [Automate d message] 0365867853) The system [employer] generated this result transmit paige reference range : 22 - 26 mEq/L. The reference range was not used to interpret this result as normal/abnormal . BE (test code = -6.9 See_Comment L [Automated message] 6746243236) The system [employer] generated this result transmit paige reference range : -3.0 - 3.0 mEq/ L. The reference r prasanth was not used to interpret this result as normal/abnormal . THB (test code = 9.2 g/dL 12.0-16.0 L 0256063635) %O2HB (test code = 98.7 % 94.0-99.0 9659894550) %COHB ART (test code = 0.1 % 0.0-1.5 0574327170) %METHB ART (test code = 0.3 % 0.4-1.5 L 5972098450) VOL%O2 ART (test code = 13.2 % 15.0-23.0 L QUES 9346216043) NA (test code = 136 mmol/L 135-145 1228628253) K+ (test code = 3.8 mmol/L 3.5-5.0 9775948415) AC CA IONZ (test code = 4.60 mg/dL 4.50-5.30 6758901622) GLUCOSE (test code = 113 mg/dL 70-110 H 8428326431) Lab Interpretation Abnormal (test code = 80072-8) [facility] 01:58:53 Test Item Value Reference Range Interpretation Comments PH (test code = 2) 7.34 7.35-7.45 L PCO2 (test code = 41 See_Comment [Automate d message] 8256591684) The system Sendori generated this result transmit paige reference range : 35 - 45 mmHg. The reference range was not used to interpret this result as normal/abnormal . PO2 (test code = 203 See_Comment H [Automated message] 4906833957) The system [employer] generated this result transmit paige reference range : 80 - 100 mmHg. The reference range was not used to interpret this result as normal/abnormal . HCO3 (test code = 21 See_Comment L [Automate d message] 0598847527) The system [employer] generated this result transmit paige reference range : 22 - 26 mEq/L. The reference range was not used to interpret this result as normal/abnormal . BE (test code = -4.3 See_Comment L [Automated message] 4381611071) The system [employer] generated this result transmit paige reference range : -3.0 - 3.0 mEq/ L. The reference r prasanth was not used to interpret this result as normal/abnormal . THB (test code = 10.9 g/dL 12.0-16.0 L 4853331232) %O2HB (test code = 98.4 % 94.0-99.0 7222392964) %COHB ART (test code = 0.3 % 0.0-1.5 7252017461) %METHB ART (test code = 0.1 % 0.4-1.5 L 3679498708) VOL%O2 ART (test code = 15.5 % 15.0-23.0 QUES 1837669306) NA (test code = 136 mmol/L 135-145 9365358262) K+ (test code = 3.4 mmol/L 3.5-5.0 L 9180092096) AC CA IONZ (test code = 4.60 mg/dL 4.50-5.30 5659878365) GLUCOSE (test code = 98 mg/dL 70-110 1160705132) Lab Interpretation Abnormal (test code = 55849-9) [facility] 01:58:53 Test Item Value Reference Range Interpretation Comments PH (test code = 2) 7.34 7.35-7.45 L PCO2 (test code = 41 See_Comment [Automate d message] [id number]) The system [employer] generated this result transmit paige reference range : 35 - 45 mmHg. The reference range was not used to interpret this result as normal/abnormal . PO2 (test code = 203 See_Comment H [Automated message] 0745114035) The system [employer] generated this result transmit paige reference range : 80 - 100 mmHg. The reference range was not used to interpret this result as normal/abnormal . HCO3 (test code = 21 See_Comment L [Automate d message] 7283200630) The system [employer] generated this result transmit paige reference range : 22 - 26 mEq/L. The reference range was not used to interpret this result as normal/abnormal . BE (test code = -4.3 See_Comment L [Automated message] 2700802966) The system [employer] generated this result transmit paige reference range : -3.0 - 3.0 mEq/ L. The reference r prasanth was not used to interpret this result as normal/abnormal . THB (test code = 10.9 g/dL 12.0-16.0 L 5414152739) %O2HB (test code = 98.4 % 94.0-99.0 3509627070) %COHB ART (test code = 0.3 % 0.0-1.5 1227783020) %METHB ART (test code = 0.1 % 0.4-1.5 L 3262205905) VOL%O2 ART (test code = 15.5 % 15.0-23.0 QUES 3638323740) NA (test code = 136 mmol/L 135-145 1430203171) K+ (test code = 3.4 mmol/L 3.5-5.0 L 1579671586) AC CA IONZ (test code = 4.60 mg/dL 4.50-5.30 2186348472) GLUCOSE (test code = 98 mg/dL 70-110 3942644481) Lab Interpretation Abnormal (test code = 14077-3) [facility] 01:58:38 Test Item Value Reference Range Interpretation Comments PH (test code = 2) 7.39 7.35-7.45 PCO2 (test code = 33 See_Comment L [Automate d message] 1416886511) The system [employer] generated this result transmit paige reference range : 35 - 45 mmHg. The reference range was not used to interpret this result as normal/abnormal . PO2 (test code = 221 See_Comment H [Automated message] 8319910108) The system [employer] generated this result transmit paige reference range : 80 - 100 mmHg. The reference range was not used to interpret this result as normal/abnormal . HCO3 (test code = 19 See_Comment L [Automate d message] 5458049661) The system [employer] generated this result transmit paige reference range : 22 - 26 mEq/L. The reference range was not used to interpret this result as normal/abnormal . BE (test code = -4.8 See_Comment L [Automated message] 4011000569) The system [employer] generated this result transmit paige reference range : -3.0 - 3.0 mEq/ L. The reference r prasanth was not used to interpret this result as normal/abnormal . THB (test code = 10.7 g/dL 12.0-16.0 L 9581469167) %O2HB (test code = 98.5 % 94.0-99.0 9810414597) %COHB ART (test code = 0.3 % 0.0-1.5 6506360848) %METHB ART (test code = 0.1 % 0.4-1.5 L 4571887697) VOL%O2 ART (test code = 15.3 % 15.0-23.0 QUES 8214625517) NA (test code = 136 mmol/L 135-145 5654543610) K+ (test code = 3.6 mmol/L 3.5-5.0 5110897759) AC CA IONZ (test code = 4.60 mg/dL 4.50-5.30 3366360233) GLUCOSE (test code = 102 mg/dL 70-110 3617693167) Lab Interpretation Abnormal (test code = 34678-3) [facility] 01:58:38 Test Item Value Reference Range Interpretation Comments PH (test code = 2) 7.39 7.35-7.45 PCO2 (test code = 33 See_Comment L [Automate d message] 5452720359) The system [employer] generated this result transmit paige reference range : 35 - 45 mmHg. The reference range was not used to interpret this result as normal/abnormal . PO2 (test code = 221 See_Comment H [Automated message] 9763593713) The system [employer] generated this result transmit paige reference range : 80 - 100 mmHg. The reference range was not used to interpret this result as normal/abnormal . HCO3 (test code = 19 See_Comment L [Automate d message] 8382886788) The system [employer] generated this result transmit paige reference range : 22 - 26 mEq/L. The reference range was not used to interpret this result as normal/abnormal . BE (test code = -4.8 See_Comment L [Automated message] 6947671496) The system [employer] generated this result transmit paige reference range : -3.0 - 3.0 mEq/ L. The reference r prasanth was not used to interpret this result as normal/abnormal . THB (test code = 10.7 g/dL 12.0-16.0 L 1380042989) %O2HB (test code = 98.5 % 94.0-99.0 0643708719) %COHB ART (test code = 0.3 % 0.0-1.5 5990519164) %METHB ART (test code = 0.1 % 0.4-1.5 L 7924819678) VOL%O2 ART (test code = 15.3 % 15.0-23.0 QUES 0996240468) NA (test code = 136 mmol/L 135-145 3644514914) K+ (test code = 3.6 mmol/L 3.5-5.0 9086846041) AC CA IONZ (test code = 4.60 mg/dL 4.50-5.30 4206833094) GLUCOSE (test code = 102 mg/dL 70-110 6834385176) Lab Interpretation Abnormal (test code = 90618-1) [facility] 01:53:50 Test Item Value Reference Range Interpretation Comments PH (test code = 2) 7.38 7.35-7.45 PCO2 (test code = 33 See_Comment L [Automate d message] 7748476539) The system [employer] generated this result transmit paige reference range : 35 - 45 mmHg. The reference range was not used to interpret this result as normal/abnormal . PO2 (test code = 183 See_Comment H [Automated message] 6079895377) The system [employer] generated this result transmit paige reference range : 80 - 100 mmHg. The reference range was not used to interpret this result as normal/abnormal . HCO3 (test code = 19 See_Comment L [Automate d message] 1920864883) The system [employer] generated this result transmit paige reference range : 22 - 26 mEq/L. The reference range was not used to interpret this result as normal/abnormal . BE (test code = -5.3 See_Comment L [Automated message] 0181696799) The system [employer] generated this result transmit paige reference range : -3.0 - 3.0 mEq/ L. The reference r prasanth was not used to interpret this result as normal/abnormal . THB (test code = 7.8 g/dL 12.0-16.0 LL 8583639328) %O2HB (test code = 97.7 % 94.0-99.0 2737677375) %COHB ART (test code = 0.7 % 0.0-1.5 3888755830) %METHB ART (test code = 0.4 % 0.4-1.5 0440040163) VOL%O2 ART (test code = 11.2 % 15.0-23.0 L QUES 3916916204) NA (test code = 129 mmol/L 135-145 L 1849420100) K+ (test code = 3.7 mmol/L 3.5-5.0 5082397023) AC CA IONZ (test code = 4.30 mg/dL 4.50-5.30 L 1047337651) GLUCOSE (test code = 128 mg/dL 70-110 H 8391420126) Lab Interpretation Abnormal (test code = 14348-5) [facility] 01:53:50 Test Item Value Reference Range Interpretation Comments PH (test code = 2) 7.38 7.35-7.45 PCO2 (test code = 33 See_Comment L [Automate d message] 5540377074) The system [employer] generated this result transmit paige reference range : 35 - 45 mmHg. The reference range was not used to interpret this result as normal/abnormal . PO2 (test code = 183 See_Comment H [Automated message] 0404297862) The system [employer] generated this result transmit paige reference range : 80 - 100 mmHg. The reference range was not used to interpret this result as normal/abnormal . HCO3 (test code = 19 See_Comment L [Automate d message] 5854062939) The system [employer] generated this result transmit paige reference range : 22 - 26 mEq/L. The reference range was not used to interpret this result as normal/abnormal . BE (test code = -5.3 See_Comment L [Automated message] 3685739298) The system [employer] generated this result transmit paige reference range : -3.0 - 3.0 mEq/ L. The reference r prasanth was not used to interpret this result as normal/abnormal . THB (test code = 7.8 g/dL 12.0-16.0 LL 3467765517) %O2HB (test code = 97.7 % 94.0-99.0 1724190008) %COHB ART (test code = 0.7 % 0.0-1.5 5057651856) %METHB ART (test code = 0.4 % 0.4-1.5 2880034892) VOL%O2 ART (test code = 11.2 % 15.0-23.0 L QUES 7473370770) NA (test code = 129 mmol/L 135-145 L 8574535856) K+ (test code = 3.7 mmol/L 3.5-5.0 3807161750) AC CA IONZ (test code = 4.30 mg/dL 4.50-5.30 L 1741352885) GLUCOSE (test code = 128 mg/dL 70-110 H 3684896629) Lab Interpretation Abnormal (test code = 86335-4) [facility] 01:53:14 Test Item Value Reference Range Interpretation Comments PH (test code = 2) 7.38 7.35-7.45 PCO2 (test code = 33 See_Comment L [Automate d message] 3043425450) The system [employer] generated this result transmit paige reference range : 35 - 45 mmHg. The reference range was not used to interpret this result as normal/abnormal . PO2 (test code = 209 See_Comment H [Automated message] 7633836004) The system [employer] generated this result transmit paige reference range : 80 - 100 mmHg. The reference range was not used to interpret this result as normal/abnormal . HCO3 (test code = 19 See_Comment L [Automate d message] 4363522737) The system [employer] generated this result transmit paige reference range : 22 - 26 mEq/L. The reference range was not used to interpret this result as normal/abnormal . BE (test code = -5.2 See_Comment L [Automated message] 4949105549) The system [employer] generated this result transmit paige reference range : -3.0 - 3.0 mEq/ L. The reference r prasanth was not used to interpret this result as normal/abnormal . THB (test code = 8.2 g/dL 12.0-16.0 LL 5802200427) %O2HB (test code = 98.3 % 94.0-99.0 5863233645) %COHB ART (test code = 0.6 % 0.0-1.5 1638775305) %METHB ART (test code = 0.5 % 0.4-1.5 6192774148) VOL%O2 ART (test code = 11.9 % 15.0-23.0 L QUES 1017519930) NA (test code = 134 mmol/L 135-145 L 0651944628) K+ (test code = 3.7 mmol/L 3.5-5.0 4330625550) AC CA IONZ (test code = 4.50 mg/dL 4.50-5.30 1492195238) GLUCOSE (test code = 137 mg/dL 70-110 H 5992793788) Lab Interpretation Abnormal (test code = 69236-7) [facility] 01:53:14 Test Item Value Reference Range Interpretation Comments PH (test code = 2) 7.38 7.35-7.45 PCO2 (test code = 33 See_Comment L [Automate d message] 6117246173) The system [employer] generated this result transmit paige reference range : 35 - 45 mmHg. The reference range was not used to interpret this result as normal/abnormal . PO2 (test code = 209 See_Comment H [Automated message] 8366522392) The system [employer] generated this result transmit paige reference range : 80 - 100 mmHg. The reference range was not used to interpret this result as normal/abnormal . HCO3 (test code = 19 See_Comment L [Automate d message] 7043141925) The system [employer] generated this result transmit paige reference range : 22 - 26 mEq/L. The reference range was not used to interpret this result as normal/abnormal . BE (test code = -5.2 See_Comment L [Automated message] 9695407790) The system [employer] generated this result transmit paige reference range : -3.0 - 3.0 mEq/ L. The reference r prasanth was not used to interpret this result as normal/abnormal . THB (test code = 8.2 g/dL 12.0-16.0 LL 3793199902) %O2HB (test code = 98.3 % 94.0-99.0 0061293003) %COHB ART (test code = 0.6 % 0.0-1.5 7462751048) %METHB ART (test code = 0.5 % 0.4-1.5 1340272987) VOL%O2 ART (test code = 11.9 % 15.0-23.0 L QUES 1491858365) NA (test code = 134 mmol/L 135-145 L 5107851839) K+ (test code = 3.7 mmol/L 3.5-5.0 2363451257) AC CA IONZ (test code = 4.50 mg/dL 4.50-5.30 1822584425) GLUCOSE (test code = 137 mg/dL 70-110 H 5537808602) Lab Interpretation Abnormal (test code = 31155-2) [facility] 01:44:26 Test Item Value Reference Range Interpretation Comments PH (test code = 2) 7.36 7.35-7.45 PCO2 (test code = 34 See_Comment L [Automate d message] 1057108832) The system Send[employer] generated this result transmit paige reference range : 35 - 45 mmHg. The reference range was not used to interpret this result as normal/abnormal . PO2 (test code = 153 See_Comment H [Automated message] 1944837445) The system [employer] generated this result transmit paige reference range : 80 - 100 mmHg. The reference range was not used to interpret this result as normal/abnormal . HCO3 (test code = 19 See_Comment L [Automate d message] 5345115106) The system [employer] generated this result transmit paige reference range : 22 - 26 mEq/L. The reference range was not used to interpret this result as normal/abnormal . BE (test code = -6.2 See_Comment L [Automated message] 8014464258) The system [employer] generated this result transmit paige reference range : -3.0 - 3.0 mEq/ L. The reference r prasanth was not used to interpret this result as normal/abnormal . THB (test code = 8.2 g/dL 12.0-16.0 LL 4283657018) %O2HB (test code = 98.3 % 94.0-99.0 9485439870) %COHB ART (test code = 0.3 % 0.0-1.5 9088421113) %METHB ART (test code = 0.1 % 0.4-1.5 L 5986722838) VOL%O2 ART (test code = 11.7 % 15.0-23.0 L QUES 2160313564) NA (test code = 134 mmol/L 135-145 L 9118062294) K+ (test code = 4.0 mmol/L 3.5-5.0 2587938169) AC CA IONZ (test code = 5.30 mg/dL 4.50-5.30 0077495985) GLUCOSE (test code = 142 mg/dL 70-110 H 9821212161) Lab Interpretation Abnormal (test code = 54679-7) [facility] 01:44:26 Test Item Value Reference Range Interpretation Comments PH (test code = 2) 7.36 7.35-7.45 PCO2 (test code = 34 See_Comment L [Automate d message] 1276646163) The system [employer] generated this result transmit paige reference range : 35 - 45 mmHg. The reference range was not used to interpret this result as normal/abnormal . PO2 (test code = 153 See_Comment H [Automated message] 1063157218) The system [employer] generated this result transmit paige reference range : 80 - 100 mmHg. The reference range was not used to interpret this result as normal/abnormal . HCO3 (test code = 19 See_Comment L [Automate d message] 7416392367) The system [employer] generated this result transmit paige reference range : 22 - 26 mEq/L. The reference range was not used to interpret this result as normal/abnormal . BE (test code = -6.2 See_Comment L [Automated message] 1218827139) The system [employer] generated this result transmit paige reference range : -3.0 - 3.0 mEq/ L. The reference r prasanth was not used to interpret this result as normal/abnormal . THB (test code = 8.2 g/dL 12.0-16.0 LL 7418732354) %O2HB (test code = 98.3 % 94.0-99.0 8616772288) %COHB ART (test code = 0.3 % 0.0-1.5 4906179339) %METHB ART (test code = 0.1 % 0.4-1.5 L 7011388361) VOL%O2 ART (test code = 11.7 % 15.0-23.0 L QUES 4160009652) NA (test code = 134 mmol/L 135-145 L 2092298227) K+ (test code = 4.0 mmol/L 3.5-5.0 1994762206) AC CA IONZ (test code = 5.30 mg/dL 4.50-5.30 8566508103) GLUCOSE (test code = 142 mg/dL 70-110 H 4237185092) Lab Interpretation Abnormal (test code = 92795-4) [facility] 01:43:21 Test Item Value Reference Range Interpretation Comments PH (test code = 2) 7.35 7.35-7.45 PCO2 (test code = 40 See_Comment [Automate d message] 4366765316) The system [employer] generated this result transmit paige reference range : 35 - 45 mmHg. The reference range was not used to interpret this result as normal/abnormal . PO2 (test code = 182 See_Comment H [Automated message] 2371524697) The system [employer] h generated this result transmit paige reference range : 80 - 100 mmHg. The reference range was not used to interpret this result as normal/abnormal . HCO3 (test code = 22 See_Comment [Automate d message] 3857749465) The system [employer] generated this result transmit paige reference range : 22 - 26 mEq/L. The reference range was not used to interpret this result as normal/abnormal . BE (test code = -3.5 See_Comment L [Automated message] 8879054043) The system [employer] generated this result transmit paige reference range : -3.0 - 3.0 mEq/ L. The reference r prasanth was not used to interpret this result as normal/abnormal . THB (test code = 11.1 g/dL 12.0-16.0 L 1330257107) %O2HB (test code = 98.1 % 94.0-99.0 9485851655) %COHB ART (test code = 0.3 % 0.0-1.5 5768829942) %METHB ART (test code = 0.3 % 0.4-1.5 L 8152517608) VOL%O2 ART (test code = 15.7 % 15.0-23.0 QUES 2421861514) NA (test code = 137 mmol/L 135-145 6634889981) K+ (test code = 3.1 mmol/L 3.5-5.0 L 5974611677) AC CA IONZ (test code = 4.70 mg/dL 4.50-5.30 4580292501) GLUCOSE (test code = 111 mg/dL 70-110 H 6287217064) Lab Interpretation Abnormal (test code = 81563-0) [facility] 01:43:21 Test Item Value Reference Range Interpretation Comments PH (test code = 2) 7.35 7.35-7.45 PCO2 (test code = 40 See_Comment [Automate d message] 3406455979) The system [employer] generated this result transmit paige reference range : 35 - 45 mmHg. The reference range was not used to interpret this result as normal/abnormal . PO2 (test code = 182 See_Comment H [Automated message] 9309763165) The system [employer] h generated this result transmit paige reference range : 80 - 100 mmHg. The reference range was not used to interpret this result as normal/abnormal . HCO3 (test code = 22 See_Comment [Automate d message] 4871012670) The system [employer] h generated this result transmit paige reference range : 22 - 26 mEq/L. The reference range was not used to interpret this result as normal/abnormal . BE (test code = -3.5 See_Comment L [Automated message] 0703103339) The system [employer] generated this result transmit paige reference range : -3.0 - 3.0 mEq/ L. The reference r prasanth was not used to interpret this result as normal/abnormal . THB (test code = 11.1 g/dL 12.0-16.0 L 6525861021) %O2HB (test code = 98.1 % 94.0-99.0 3336515930) %COHB ART (test code = 0.3 % 0.0-1.5 9401687026) %METHB ART (test code = 0.3 % 0.4-1.5 L 4858334623) VOL%O2 ART (test code = 15.7 % 15.0-23.0 QUES 9967463724) NA (test code = 137 mmol/L 135-145 1371985982) K+ (test code = 3.1 mmol/L 3.5-5.0 L 9393021193) AC CA IONZ (test code = 4.70 mg/dL 4.50-5.30 4450601227) GLUCOSE (test code = 111 mg/dL 70-110 H 1374101318) Lab Interpretation Abnormal (test code = 83218-5) [facility] 1 Units 2023-01-17 22:41:13 Test Item Value Reference Range Interpretation Comments Cross Match Result Compatible (test code = 4409) ISBT Blood Type Code 6200 (test code = 334687) Unit Blood Type (test A Pos code = 4410) Unit Number (test [id number] code = 4411) Blood Expiration Date & Time (test code = 418746) Status Information Issued (test code = 4412) Product Red Blood Cells Identification (test code = 4413) Product Code (test [id number] Performed at [facility] code = 4414) Laboratory Services [facility] Blood [address] [address]Trik Free: [phone] A No. [id number] [facility] RBC (in units), 1 Units 2023-01-17 22:41:13 Test Item Value Reference Range Interpretation Comments Cross Match Result Compatible (test code = 4409) ISBT Blood Type Code 6200 (test code = 156551) Unit Blood Type (test A Pos code = 4410) Unit Number (test [id number] code = 4411) Blood Expiration Date & Time (test code = 627012) Status Information Issued (test code = 4412) Product Red Blood Cells Identification (test code = 4413) Product Code (test [id number] Performed at [facility] code = 4414) Laboratory Services [facility] Blood [address] [address]Wtgp Free: [phone] A No. [id number] [facility] [id number] 21:49:46 Test Item Value Reference Range Interpretation Comments WBC (test code = 6690-2) 9.66 See_Comment [A utomated message] The system [employer] generated this result transmit paige reference range : 4.30 - 11.10 10*3/?L. The reference range was not used to interpret this result as normal/abnormal . RBC (test code = 789-8) 2.55 See_Comment L [Au tomated message] The system [employer] generated this result transmit paige reference range [...] 208 See_Comment [Au tomated message] The system [employer] generated this result transmit paige reference range : 166 - 358 10*3/?L. The reference range was not used to interpret this result as normal/abnormal . MPV (test code = 10.9 fL 9.5-12.9 01566-3) RDW-CV (test code = 14.8 % 12.0-15.5 788-0) RDW-SD (test code = 48.9 fL 39.0-49.9 58558-7) NRBC x10^3 (test code = See_Comment [Au tomated message] 7124827971) The system [employer] generated this result transmit paige reference range : 10*3/?L. The reference range was not used to interpret this result as normal/abnormal . NRBC/100 WBC (test code 0.0 See_Comment [Au tomated message] = 7378783855) The [facility] generated this result transmit paige reference range : 0.0 - 10.0 /100 WBC s. The reference r prasanth was not used to interpret this result as normal/abnormal . IPF % (test code = 5904316893) Lab Interpretation (test Abnormal code = 95725-3) [facility] WITHOUT [id number] 21:49:46 Test Item Value Reference Range Interpretation Comments WBC (test code = 6690-2) 9.66 See_Comment [A utomated message] The system [employer] generated this result transmit paige reference range : 4.30 - 11.10 10*3/?L. The reference range was not used to interpret this result as normal/abnormal . RBC (test code = 789-8) 2.55 See_Comment L [Au tomated message] The system [employer] generated this result transmit paige reference range [...] 208 See_Comment [Au tomated message] The system [employer] generated this result transmit paige reference range : 166 - 358 10*3/?L. The reference range was not used to interpret this result as normal/abnormal . MPV (test code = 10.9 fL 9.5-12.9 87372-4) RDW-CV (test code = 14.8 % 12.0-15.5 788-0) RDW-SD (test code = 48.9 fL 39.0-49.9 67907-4) NRBC x10^3 (test code = See_Comment [Au tomated message] 9714072202) The system [employer] generated this result transmit paige reference range : 10*3/?L. The reference range was not used to interpret this result as normal/abnormal . NRBC/100 WBC (test code 0.0 See_Comment [Au tomated message] = [id number]) The system [facility] generated this result transmit paige reference range : 0.0 - 10.0 /100 WBC s. The reference r prasanth was not used to interpret this result as normal/abnormal . IPF % (test code = 9046428520) Lab Interpretation (test Abnormal code = 17099-7) [facility] - ONCE [id number] 10:54:00 Test Item Value Reference Range Interpretation Comments ABO & RH (test code = 20) A POSITIVE IAT (test code = 1185) [facility] [id number] 10:54:00 Test Item Value Reference Range Interpretation Comments ABO & RH (test code = 20) A POSITIVE IAT (test code = 1185) Negative [facility], [id number] 00:00:00 Test Item Value Reference Range Interpretation Comments CULTURE, ROUTINE (test SPECIMEN NUMBER: code = 09998) [id number] CULTURE, [id number] 00:00:00 Test Item Value Reference Range Interpretation Comments CULTURE, ROUTINE (test SPECIMEN NUMBER: code = 98876) [id number] CULTURE, [id number] 00:00:00 Test Item Value Reference Range Interpretation Comments CULTURE, ROUTINE (test SPECIMEN NUMBER: code = 11424) [id number] CULTURE, [id number] 00:00:00 Test Item Value Reference Range Interpretation Comments CULTURE, ROUTINE (test SPECIMEN NUMBER: code = 99329) [id number] GC AND CHLAMYDIA AMPLIFIED, [id number] 00:00:00 Test Item Value Reference Range Interpretation Comments GONORRHEA, TMA (test code = 14212) NEGATIVE CHLAMYDIA, TMA (test code = 90565) NEGATIVE VAGINAL PATHOGENS DNA [id number] 00:00:00 Test Item Value Reference Range Interpretation Comments LORE SPECIES (test code = 47769) NEGATIVE G. VAGINALIS (test code = 44349) POSITIVE T. VAGINALIS (test code = 29660) NEGATIVE ACUTE HEPATITIS [id number] 00:00:00 Test Item Value Reference Range Interpretation Comments HEPATITIS A IgM (test code = NON-REACTIVE 43794) HEPATITIS B CORE IgM (test code NON-REACTIVE = 4644) HEPATITIS B SURF AG (test code = NON-REACTIVE 8319) HEPATITIS C ANTIBODY (test code NON-REACTIVE = 4675) INTERPRETATION HEPATITIS A: (NOTE) (test code = 2552) INTERPRETATION HEPATITIS B: (NOTE) (test code = 52181) INTERPRETATION HEPATITIS C: (NOTE) (test code = 25564) PAP TEST, THINPREP, [id number] 00:00:00 Test Item Value Reference Range Interpretation Comments SOURCE: (test code = Cervical/Endocervical 8001) SLIDES: (test code = 1 8011) LMP: (test code = 8021) 05/18/2021 SPECIMEN ADEQUACY: (test (NOTE) code = 74020) INTERPRETATION: (test NILM/NO EPITH. code = 87233) ABNORMALITY;SEE BELOW OTHER COMMENTS: (test (NOTE) code = 8081) ACUPUNCTURIST: (test Jeanna code = 8101) BRIANNE Suresh(ASCP) LOCATION: (test code = (NOTE) 96242) CPT: (test code = 8140) (NOTE) HPV HIGH RISK WITH GENOTYPE, [id number] 00:00:00 Test Item Value Reference Range Interpretation Comments HPV HIGH RISK INTERP (test code = NEGATIVE 92942) HPV 16 (test code = 76604) NEGATIVE HPV 18 (test code = 07991) NEGATIVE HPV, HR, OTHER GENOTYPES (test code NEGATIVE = 33332) VAGINAL PATHOGENS DNA [id number] 00:00:00 Test Item Value Reference Range Interpretation Comments LORE SPECIES (test code = 54066) NEGATIVE G. VAGINALIS (test code = 25015) POSITIVE T. VAGINALIS (test code = 76512) NEGATIVE GC AND CHLAMYDIA AMPLIFIED, [id number] 00:00:00 Test Item Value Reference Range Interpretation Comments GONORRHEA, TMA (test code = 92716) NEGATIVE CHLAMYDIA, TMA (test code = 71579) NEGATIVE PAP TEST, THINPREP, [id number] 00:00:00 Test Item Value Reference Range Interpretation Comments SOURCE: (test code = Cervical/Endocervical 8001) SLIDES: (test code = 1 8011) LMP: (test code = 8021) 05/18/2021 SPECIMEN ADEQUACY: (test (NOTE) code = 40564) INTERPRETATION: (test NILM/NO EPITH. code = 07363) ABNORMALITY;SEE BELOW OTHER COMMENTS: (test (NOTE) code = 8081) ACUPUNCTURIST: (test Jeanna code = 8101) BRIANNE Suresh(ASCP) LOCATION: (test code = (NOTE) 26467) CPT: (test code = 8140) (NOTE) ACUTE HEPATITIS [id number] 00:00:00 Test Item Value Reference Range Interpretation Comments HEPATITIS A IgM (test code = NON-REACTIVE 24488) HEPATITIS B CORE IgM (test code NON-REACTIVE = 4644) HEPATITIS B SURF AG (test code = NON-REACTIVE 8789) HEPATITIS C ANTIBODY (test code NON-REACTIVE = 4678) INTERPRETATION HEPATITIS A: (NOTE) (test code = 2552) INTERPRETATION HEPATITIS B: (NOTE) (test code = 47556) INTERPRETATION HEPATITIS C: (NOTE) (test code = 87667) HPV HIGH RISK WITH GENOTYPE, [id number] 00:00:00 Test Item Value Reference Range Interpretation Comments HPV HIGH RISK INTERP (test code = NEGATIVE 08372) HPV 16 (test code = 09962) NEGATIVE HPV 18 (test code = 69785) NEGATIVE HPV, HR, OTHER GENOTYPES (test code NEGATIVE = 48491) COMPREHENSIVE METABOLIC [id number] 00:00:00 Test Item Value Reference Range Interpretation Comments GLUCOSE (test code = 2217) 84 MG/DL BUN (test code = 2208) 18 MG/DL CREATININE (test code = 2214) 0.94 MG/DL eGFR AMER. (test code 83 ML/MIN/1.73 = 18740) eGFR NON- AMER. (test 72 ML/MIN/1.73 code = 08805) CALC BUN/CREAT (test code = 19 RATIO 2235) SODIUM (test code = 2231) 136 MEQ/L POTASSIUM (test code = 2228) 4.4 MEQ/L CHLORIDE (test code = 2215) 101 MEQ/L CARBON DIOXIDE (test code = 24 MEQ/L 2206) CALCIUM (test code = 2209) 9.7 MG/DL [...] (test code = 2219) 10 U/L LIPID [id number] 00:00:00 Test Item Value Reference Range Interpretation Comments CHOLESTEROL (test code = 2210) 157 MG/DL TRIGLYCERIDES (test code = 2232) 135 MG/DL HDL CHOLESTEROL (test code = 2220) 40 MG/DL CALC LDL CHOL (test code = 2237) 94 MG/DL RISK RATIO LDL/HDL (test code = 2.35 RATIO 2238) COMPREHENSIVE METABOLIC [id number] 00:00:00 Test Item Value Reference Range Interpretation Comments GLUCOSE (test code = 2217) 84 MG/DL BUN (test code = 2208) 18 MG/DL CREATININE (test code = 2214) 0.94 MG/DL eGFR AMER. (test code 83 ML/MIN/1.73 = 49810) eGFR NON- AMER. (test 72 ML/MIN/1.73 code = 68030) CALC BUN/CREAT (test code = 19 RATIO 2235) SODIUM (test code = 2231) 136 MEQ/L POTASSIUM (test code = 2228) 4.4 MEQ/L CHLORIDE (test code = 2215) 101 MEQ/L CARBON DIOXIDE (test code = 24 MEQ/L 2205) CALCIUM (test code = 2209) 9.7 MG/DL PROTEIN, TOTAL (test code = 7.8 G/DL 2228) ALBUMIN (test code = 220) 4.7 G/DL CALC GLOBULIN (test code = 3.1 G/DL 2239) CALC A/G RATIO (test code = 1.5 RATIO 2233) BILIRUBIN, TOTAL (test code = <0.2 MG/DL 2206) ALKALINE PHOSPHATASE (test 66 U/L code = 2204) AST (test code = 2218) 19 U/L ALT (test code = 2219) 10 U/L LIPID [id number] 00:00:00 Test Item Value Reference Range Interpretation Comments CHOLESTEROL (test code = 2210) 157 MG/DL TRIGLYCERIDES (test code = 2232) 135 MG/DL HDL CHOLESTEROL (test code = 2220) 40 MG/DL CALC LDL CHOL (test code = 2237) 94 MG/DL RISK RATIO LDL/HDL (test code = 2.35 RATIO 2238) COMPREHENSIVE METABOLIC [id number] 00:00:00 Test Item Value Reference Range Interpretation Comments GLUCOSE (test code = 2217) 93 MG/DL BUN (test code = 2208) 12 MG/DL CREATININE (test code = 2214) 0.81 MG/DL eGFR AMER. (test code 102 ML/MIN/1.73 = 25831) eGFR NON- AMER. (test 88 ML/MIN/1.73 code = 89185) CALC BUN/CREAT (test code = 15 RATIO [...] ALT (test code = 2219) 14 U/L [id number] 00:00:00 Test Item Value Reference Range Interpretation Comments AMYLASE (test code = 2205) 32 U/L [id number] 00:00:00 Test Item Value Reference Range Interpretation Comments LIPASE (test code = 2058) 37 U/L [id number] 00:00:00 Test Item Value Reference Range Interpretation Comments LIPASE (test code = 2058) 37 U/L COMPREHENSIVE METABOLIC [id number] 00:00:00 Test Item Value Reference Range Interpretation Comments GLUCOSE (test code = 2217) 93 MG/DL BUN (test code = 2208) 12 MG/DL CREATININE (test code = 2214) 0.81 MG/DL eGFR AMER. (test code 102 ML/MIN/1.73 = 26184) eGFR NON- AMER. (test 88 ML/MIN/1.73 code = 66907) CALC BUN/CREAT (test code = 15 RATIO [...] ALT (test code = 2219) 14 U/L [id number] 00:00:00 Test Item Value Reference Range Interpretation Comments AMYLASE (test code = 5) 32 U/L [id number] 00:00:00 Test Item Value Reference Range Interpretation Comments LIPASE (test code = 2057) 37 U/L [id number] 00:00:00 Test Item Value Reference Range Interpretation Comments LIPASE (test code = 2057) 37 U/L CBC W/AUTO [id number] 00:00:00 Test Item Value Reference Range Interpretation [...] code = 1015) 327 K/UL CBC W/AUTO [id number] 00:00:00 Test Item Value Reference Range Interpretation [...] code = 1015) 327 K/UL CBC W/AUTO [id number] 00:00:00 Test Item Value Reference Range Interpretation [...] code = 1015) 327 K/UL CBC W/AUTO [id number] 00:00:00 Test Item Value Reference Range Interpretation [...]
[2023-02-14] MEDS ORDERED: FENTANYL CITR 100 MCG/2 ML ONE (03:05)
[2023-02-14] MEDS ORDERED: DIAZEPAM 10 MG/2 ML INJ SYRINGE ONE (03:06)
--- NOTE | 2023-02-14 04:25 | EDPHYS ---
Physician Documentation [facility] Name: Jennifer Victor Age: 52 yrs Sex: Female : 1970 Arrival Date: 02/14/2023 Time: 01:43 Bed 7 Private MD: ED Physician Davi Walters HPI: 02/14 08:03 This 52 yrs old Female presents to ER via EMS with unknown complaint. kdr 08:03 This 52 yrs old Female presents to ER via EMS with complaints of Back pain and kdr out of pain medication. 08:03 Patient presents today complaining of low back and upper back pain. This is been kdr ongoing for about 3 weeks. She had surgery at that time at [facility] in [place] by Dr. Julia Araiza hip or patient has been taking oxycodone for her pain relief but is currently out. Patient continues to have pain but denies any new injury or fall. Patient is otherwise without significant findings or complaints including her bowel and bladder control are normal and no perineal numbness or tingling. Patient otherwise is nontoxic-appearing. Onset: The symptoms/episode began/occurred suddenly. Severity of symptoms: At their worst the symptoms were mild moderate just prior to arrival, in the emergency department the symptoms are unchanged. The patient has experienced similar episodes in the past, chronically. The patient has been recently seen by a physician: the patient's primary care provider. 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 - Social history:: Smoking status: Patient denies any tobacco usage or history of. ROS: 08:03 Constitutional: Negative for fever, chills, and weight loss, Eyes: Negative for injury, kdr pain, redness, and discharge, Neck: Negative for injury, pain, and swelling, Cardiovascular: Negative for chest pain, palpitations, and edema, Respiratory: Negative for shortness of breath, cough, wheezing, and pleuritic chest pain, Abdomen/GI: Negative for abdominal pain, nausea, vomiting, diarrhea, and constipation, MS/Extremity: Negative for injury and deformity, Skin: Negative for injury, rash, and discoloration, Neuro: Negative for headache, weakness, numbness, tingling, and seizure activity. Psych: Negative for depression, anxiety, suicide ideation, homicidal ideation, and hallucinations, Allergy/Immunology: Negative for hives, rash, and allergies, Endocrine: Negative for neck swelling, polydipsia, polyuria, polyphagia, and marked weight changes, Hematologic/Lymphatic: Negative for swollen nodes, abnormal bleeding, and unusual bruising. 08:03 Back: Positive for pain at rest, pain with movement, radiated pain. Exam: 08:03 Constitutional: This is a well developed, well nourished patient who is awake, alert, kdr and in no acute distress. Head/Face: Normocephalic, atraumatic. Eyes: Pupils equal round and reactive to light, extra-ocular motions intact. Lids and lashes normal. Conjunctiva and sclera are non-icteric and not injected. Cornea within normal limits. Periorbital areas with no swelling, redness, or edema. Neck: Trachea midline, no thyromegaly or masses palpated, and no cervical lymphadenopathy. Supple, full range of motion without nuchal rigidity, or vertebral point tenderness. No Meningismus. Chest/axilla: Normal chest wall appearance and motion. Nontender with no deformity. No lesions are appreciated. Cardiovascular: Regular rate and rhythm with a normal S1 and S2. No gallops, murmurs, or rubs. Normal PMI, no JVD. No pulse deficits. Respiratory: Lungs have equal breath sounds bilaterally, clear to auscultation and percussion. No rales, rhonchi or wheezes noted. No increased work of breathing, no retractions or nasal flaring. Abdomen/GI: Soft, non-tender, with normal bowel sounds. No distension or tympany. No guarding or rebound. No evidence of tenderness throughout. Skin: Warm, dry with normal turgor. Normal color with no rashes, no lesions, and no evidence of cellulitis. MS/ Extremity: Pulses equal, no cyanosis. Neurovascular intact. Full, normal range of motion. Neuro: Awake and alert, GCS 15, oriented to person, place, time, and situation. Cranial nerves II-XII grossly intact. Motor strength 5/5 in all extremities. Sensory grossly intact. Cerebellar exam normal. Normal gait. Psych: Awake, alert, with orientation to person, place and time. Behavior, mood, and affect are within normal limits. 08:03 Back: pain, that is moderate, that is severe, of the right subscapular area, low back area, mid back area, left flank and right flank. Vital Signs: 01:50 BP 124 / 73; Pulse 78; Resp 18; Temp 97.9; Pulse Ox 100% on R/A; Weight 72.57 kg; pf1 Height 5 ft. 0 in. ; Pain 9/10; 03:36 BP 107 / 64; Pulse 71; Resp 15; kl 04:35 BP 112 / 78; Pulse 81; Resp 18; Pulse Ox 99% on R/A; kl 01:50 Body Mass Index 31.25 (72.57 kg, 152.4 cm) pf1 01:50 Pain Scale: Adult pf1 MDM: 04:25 Patient medically screened. kdr 08:03 Data reviewed: vital signs, nurses notes, lab test result(s), radiologic studies. ED kdr course: Patient was frustrated with the lack of more narcotics not forthcoming. She stated she was unable to get into see pain management and her for primary physician/surgeon was not willing to give her more pain medications until being seen. I instructed the patient to go to [facility] and present to the hospital there with her complaint since that is where her surgery had been done. Patient left the department without further complaint or issue. She was released in good condition.. Administered Medications: 03:05 Drug: fentaNYL (PF) IVP 50 mcg Route: IVP; Site: right antecubital; kl 04:34 Follow up: Response: No adverse reaction; Pain is unchanged, physician notified kl 03:10 Drug: Diazepam IVP 5 mg Route: IVP; Site: right antecubital; kl 04:35 Follow up: Response: No adverse reaction; Pain is unchanged, physician notified kl 04:35 Drug: Hydrocodone-Acetaminophen PO (7.5 mg-325 mg) 1 tabs Route: PO; kl Disposition Summary: 02/14/23 04:25 Discharge Ordered Location: Home kdr Problem: an ongoing problem kdr Symptoms: have improved kdr Condition: Stable kdr Diagnosis - Low back pain kdr - Chronic back pain kdr Followup: kdr - With: Private Physician - When: Today - Reason: If symptoms return, Further diagnostic work-up, Recheck today's complaints, Continuance of care, Re-evaluation by your physician Discharge Instructions: - Discharge Summary Sheet kdr - Musculoskeletal Pain kdr - Chronic Back Pain, [id number] kdr Forms: - Medication Reconciliation Form kdr - Thank You Letter kdr - [email or web address] kdr Signatures: Barbi Ramon RN RN kl Rittger, Kevin, MD MD kdr
--- NOTE | 2023-02-14 04:25 | ER ---
Nurse's Notes [facility] Name: Jennifer Victor Age: 52 yrs Sex: Female : 1970 Arrival Date: 02/14/2023 Time: 01:43 Bed 7 Private MD: Diagnosis: Low back pain;Chronic back pain Presentation: 02/14 01:50 Chief complaint: Patient states: left back pain of 9 that radiates to left side,onset pf1 worse tonight, S/P back surgery 3 weeks ago at [facility] by Dr. Vides. Patient stated took Oxycodone XR 5mg at 1500 then took Oxycodone 5mg at 1800. Patient stated has currently 2 patience remaining from back surgery. Chief complaint: Patient states: left back pain of 9 that radiates to left side,onset worse tonight, S/P back surgery 3 weeks ago at [facility] by Dr. Vides. Patient stated took Oxycodone XR 5mg at 1500 then took Oxycodone 5mg at 1800. Patient stated has currently 2 patience remaining from back surgery. Patient stated history of scoliosis is why she had the back surgery. 01:50 Coronavirus screen: Vaccine status: Patient reports receiving the 1st dose of the Covid pf1 vaccine. Moderna Client denies travel out of the [place] in the last 14 days. At this time, the client does not indicate any symptoms associated with coronavirus-19. Ebola Screen: Patient negative for fever greater than or equal to 101.5 degrees Fahrenheit, and additional compatible Ebola Virus Disease symptoms. Initial Sepsis Screen: Does the patient meet any 2 criteria? No. Patient's initial sepsis screen is negative. Does the patient have a suspected source of infection? No. Patient's initial sepsis screen is negative. Risk Assessment: Do you want to hurt yourself or someone else? Patient reports no desire to harm self or others. 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 - Social history:: Smoking status: Patient denies any tobacco usage or history of. Screenin:40 [facility] ED Fall Risk Assessment (Adult) History of falling in the last 3 months, kl including since admission No falls in past 3 months (0 pts) Confusion or Disorientation No (0 pts) Intoxicated or Sedated No (0 pts) Impaired Gait Yes (1 pt) Mobility Assist Device Used Yes (1 pt) Altered Elimination No (0 pt) Score/Fall Risk Level 0 - 2 = Low Risk Oriented to surroundings, Maintained a safe environment. Abuse screen: Denies threats or abuse. Nutritional screening: No deficits noted. Tuberculosis screening: No symptoms or risk factors identified. Assessment: 03:00 General: Appears uncomfortable, Behavior is calm, cooperative. Pain: Complains of pain kl in back Pain currently is 9 out of 10 on a pain scale. Aggravated by increased activity. Neuro: No deficits noted. Cardiovascular: No deficits noted. Respiratory: No deficits noted. GI: No deficits noted. No signs and/or symptoms were reported involving the gastrointestinal system. : No deficits noted. No signs and/or symptoms were reported regarding the genitourinary system. EENT: No deficits noted. No signs and/or symptoms were reported regarding the EENT system. Derm: incision to mid back down to sacral area wound edges approximated no redness drainage or swelling noted 2 staple noted to lower back removed per MD order pt tolerated well. Musculoskeletal: Reports pain in back since surgery. 03:39 Reassessment: pt reports out of pain medication surgeon only gives 1 week worth pain courtney chung saw on and is out of medication. 04:35 Reassessment: Patient appears in no apparent distress at this time. Patient is alert, kl oriented x 3, equal unlabored respirations, skin warm/dry/pink. Vital Signs: 01:50 BP 124 / 73; Pulse 78; Resp 18; Temp 97.9; Pulse Ox 100% on R/A; Weight 72.57 kg; pf1 Height 5 ft. 0 in. ; Pain 9/10; 03:36 BP 107 / 64; Pulse 71; Resp 15; kl 04:35 BP 112 / 78; Pulse 81; Resp 18; Pulse Ox 99% on R/A; kl 01:50 Body Mass Index 31.25 (72.57 kg, 152.4 cm) pf1 01:50 Pain Scale: Adult pf1 ED Course: 01:50 Patient arrived in ED. rv1 01:53 Davi Walters MD is Attending Physician. kdr 02:32 Inserted saline lock: 22 gauge in right antecubital area, using aseptic technique. mc5 Blood collected. 03:40 Patient has correct armband on for positive identification. Bed in low position. Call kl light in reach. Side rails up X2. 04:35 Triage completed. pf1 04:36 No provider procedures requiring assistance completed. IV discontinued, intact, kl bleeding controlled, No redness/swelling at site. Pressure dressing applied. Administered Medications: 03:05 Drug: fentaNYL (PF) IVP 50 mcg Route: IVP; Site: right antecubital; kl 04:34 Follow up: Response: No adverse reaction; Pain is unchanged, physician notified kl 03:10 Drug: Diazepam IVP 5 mg Route: IVP; Site: right antecubital; kl 04:35 Follow up: Response: No adverse reaction; Pain is unchanged, physician notified kl 04:35 Drug: Hydrocodone-Acetaminophen PO (7.5 mg-325 mg) 1 tabs Route: PO; Medication: 04:36 VIS not applicable for this client. kl Outcome: 04:25 Discharge ordered by . kdr 04:35 Discharged to home via wheelchair, with family. kl 04:35 Condition: stable 04:35 Discharge instructions given to patient, Instructed on discharge instructions, follow up and referral plans. Demonstrated understanding of instructions, follow-up care. 04:36 Patient left the ED. kl Signatures: Barbi Ramon RN RN kl Rittger, Kevin, MD MD [facility] Elly Travis RN RN pf1 Renita Canas rv1 Carmen Bartholomew mc5
[2023-02-14] MEDS ORDERED: HYDROCODONE/APAP 7.5/325 MG TAB ONE (04:36)
[2023-02-14 04:58] VITALS: TEMP 97.9
[2023-02-14 05:03] VITALS: BP 112/78; O2SAT 99
== END 2023-02-14 04:36 | disposition home or self-care (01) ==
LOC: ER 01:43
DX: M54.50 Low back pain, unspecified (principal); M54.9 Dorsalgia, unspecified
CPT/HCPCS: 96375; 96374; 99284; J3360; J3010